=== PATIENT | male | born 1940 | race Caucasian/White ===

== ENCOUNTER 2022-03-11 14:56 | Inpatient (IN) | payer MEDICARE, SELFPAY ==
--- NOTE | ~2022-03-11 | US_ITS ---
EXAMINATION: US RETROPERITONEAL LIMITED (RENAL ONLY) CLINICAL INFORMATION: KAILEY. COMPARISON: Chest radiograph dated 03/11/2022. TECHNIQUE: Multiple 2-D grayscale and duplex Doppler ultrasound images of the kidneys were obtained. FINDINGS: RIGHT KIDNEY: 10.3 x 4.8 x 4.6 cm (SAG x AP x TRV). No hydronephrosis or nephrolithiasis. Color Doppler showed no abnormal vascular flow. LEFT KIDNEY: 11.1 x 4.1 x 4.8 cm (SAG x AP x TRV). An interpolar anechoic cyst measures 2.2 cm. A smaller interpolar anechoic cyst measures 0.9 cm. No hydronephrosis or nephrolithiasis. Color Doppler showed no abnormal vascular flow. OTHER: Mild peritoneal ascites. Small bilateral pleural effusions. US/US renal BI IMPRESSION: 1. Small left renal cysts demonstrate benign features not requiring follow-up. No acute renal abnormality. 2. Mild peritoneal ascites. 3. Small bilateral pleural effusions.
--- NOTE | ~2022-03-11 | XR_ITS ---
EXAMINATION: XR CHEST CLINICAL INFORMATION: Shortness of breath, chest pain. COMPARISON: None TECHNIQUE: Frontal view of the chest was obtained. FINDINGS: The lungs are hypoexpanded with patchy opacity in both lungs. The heart size and pulmonary vascularity is normal. There are median sternotomy sutures from previous intervention. No gross bony abnormality seen. XR/XR chest 1V IMPRESSION: Hypoexpanded lungs without acute process.
[2022-03-11 15:07] VITALS: BP 153/84; BP 163/73; PULSE 100; PULSE 92; RESP 24; TEMP 37.9; O2SAT 96; O2SAT 99; BMI 26.5
--- NOTE | 2022-03-11 15:27 | ECG_ITS ---
Test Reason : SOB Blood Pressure : / mmHG Vent. Rate : 093 BPM Atrial Rate : 000 BPM P-R Int : 000 ms QRS Dur : 084 ms QT Int : 364 ms P-R-T Axes : 000 -30 130 degrees QTc Int : 452 ms Normal sinus rhythm with 1st degree A-V block Left axis deviation Minimal voltage criteria for LVH, may be normal variant ( Carlos product ) ST & T wave abnormality, consider lateral ischemia Abnormal ECG No previous ECGs available Referred By: Elio Willard Electronically Signed By:LISA TERESA
[2022-03-11 15:44] LABS: MANUAL DIFF FLAG NO
[2022-03-11 15:54] LABS: Basophils Absolute Auto 0.1 X10*3/uL (0.0-0.2); Basophils Percent Auto 0.3 % (0-2); Eosinophils Absolute Auto 0.1 X10*3/uL (0.0-0.4); Eosinophils Percent Auto 0.7 % (0-4); Hematocrit 33.5 % (42.0-52.0); Hemoglobin 10.3 g/dl (14.0-18.0); Imm Gran Abs Auto 0.15 X10*3/uL (0.00-0.03); Imm Gran Pct Auto 0.8 % (0.0-0.4); Lymphocytes Absolute Auto 0.4 X10*3/uL (1.2-4.9); Mean Corpuscular HGB Conc 30.7 g/dl (31.0-36.0); Mean Corpuscular Hemoglobin 24.8 pg (27.0-33.0); Mean Corpuscular Volume 80.7 fL (80.0-98.0); Mean Platelet Volume 8.6 fL (9.4-12.4); Monocytes Absolute Auto 1.1 X10*3/uL (0.1-1.2); Monocytes Percent Auto 6.2 % (2-11); Neutrophils Absolute Auto 16.4 x10*3/uL (2.0-8.3); Platelet Count 190 X10*3/uL (160-400); Red Blood Count 4.15 X10*6/uL (4.60-5.80); Red Cell Distribution Width 14.8 % (11.0-16.0); White Blood Count 18.2 X10*3/uL (4.8-10.8)
[2022-03-11] MEDS: Acetaminophen 325 MG TABLET 975 MG PO (15:54)
[2022-03-11] MEDS: Piperacillin Sodium/Tazobactam 4.5 GM in 0.9 % Sodium Chloride 100 ML IV (15:54)
[2022-03-11 15:59] LABS: INTERNATIONAL NORM RATIO 1.4 (0.9-1.1); Lactic Acid 1.2 mmol/L (0.5-2.0); Prothrombin Time 15.9 SEC (10.0-13.1)
[2022-03-11 16:02] LABS: Partial Thromboplastin Time 32.5 SEC (26.0-36.4)
[2022-03-11 16:05] LABS: Alanine Aminotransferase 34 U/L (0-40); Albumin Level 3.8 g/dL (3.5-5.0); Alkaline Phosphatase 92 U/L (39-117); Anion Gap 20 (12-20); Aspartate Amino Transferase 36 U/L (5-37); Bilirubin Total 1.2 mg/dL (0.0-1.0); Blood Urea Nitrogen 57 mg/dL (9-16); Calcium 8.6 mg/dL (8.4-10.2); Carbon Dioxide 18 mmol/L (22-29); Chloride 108 mmol/L (96-108); Creatinine Clr Calc Pharmacy 15.1; Estimated Glomerular Filt Rate 19; Glucose Random 176 mg/dL (60-115); Lipase 9 U/L (8-78); Potassium 5.7 mmol/L (3.3-5.1); Sodium 140 mmol/L (135-145); Total Protein 7.4 g/dL (6.5-8.0)
[2022-03-11 16:07] LABS: Troponin-I High Sensitivity 27.5 ng/L (<3.5-35.0)
--- NOTE | 2022-03-11 16:11 | ED_ITS ---
HPI - SOB/Dyspnea General Chief Complaint: Dyspnea Stated Complaint: DIFFICULTY BREATHING Time Seen by Provider: 03/11/22 15:14 Source: patient Mode of arrival: EMS Limitations: no limitations History of Present Illness HPI Narrative: 81-year-old male who presents emergency department for evaluation of shortness of breath, subjective fever and chills. Patient states that he had a gradual onset of shortness of breath that began around 11:00 hours this morning. He states that shortness of breath got progressively worse. He states that he had subjective fever and chills at home. He denied chest pain. He denied nausea, vomiting or abdominal pain. He did have 2 episodes of loose diarrheal stool. He denied frequency, urgency or dysuria. Patient states the shortness of breath got worse despite being on 2.5 L of oxygen via nasal cannula therefore called an ambulance and was brought to the emergency department. On presentation he is on 3 L of nasal cannula his O2 saturation is 96%, patient had a temperature of a 100.2 degrees F with an elevated respiratory rate of 24. The patient was admitted to [facility] from 01/26/2022 until 01/30/2022 (approximately 6 weeks prior to evaluation). In reviewing the records, the patient presented to [facility] with fever, fatigue, increased shortness of breath times 2-3 days. The patient increased his Lasix from 20 mg 2 times a day to 40 mg 2 times a day with on relief his symptoms. At [facility] he was found to have a fever of 103.2 degrees F.. The patient's blood cultures grew Streptococcus agalactiae, group B. the patient was initially treated with Zosyn and vancomycin and then changed to cefazolin. He was discharged on a 12 day course of amoxicillin. He was also discharged on oxygen. Repeat blood cultures were negative. Related Data Home Medications Medication Instructions Recorded Confirmed albuterol sulfate 90 mcg/actuation 2 puff PO Q6H PRN wheezing 03/11/22 03/11/22 aerosol inhaler amlodipine 2.5 mg tablet 1 tab PO DAILY 03/11/22 03/11/22 aspirin 81 mg tablet,delayed 81 mg PO DAILY 03/11/22 03/11/22 release atorvastatin 80 mg tablet 1 tab PO DAILY 03/11/22 03/11/22 ergocalciferol (vitamin D2) 1,250 1 cap PO MO 03/11/22 03/11/22 mcg (50,000 unit) capsule fluticasone 250 mcg-salmeterol 50 1 puff inhalation BID 03/11/22 03/11/22 mcg/dose blistr powdr for inhalation (Advair Diskus) furosemide 20 mg tablet 2 tab PO DAILY 03/11/22 03/11/22 furosemide 20 mg tablet 20 mg PO DAILY@1700 03/11/22 03/11/22 gabapentin 300 mg capsule 1 cap PO BEDTIME 03/11/22 03/11/22 glipizide 10 mg tablet 1 tab PO BID 03/11/22 03/11/22 insulin NPH isoph U-100 human 100 9 unit subcut BEDTIME 03/11/22 03/11/22 unit/mL subcutaneous suspension (Novolin N NPH U-100 Insulin isophane) insulin NPH isoph U-100 human 100 18 unit subcut DAILY 03/11/22 03/11/22 unit/mL subcutaneous suspension (Novolin N NPH U-100 Insulin isophane) metoprolol succinate 50 mg 1 tab PO DAILY 03/11/22 03/11/22 tablet,extended release 24 hr montelukast 10 mg tablet 1 tab PO DAILY 03/11/22 03/11/22 terazosin 5 mg capsule 1 cap PO BEDTIME 03/11/22 03/11/22 Allergies Allergy/AdvReac Type Severity Reaction Status Date / Time No Known Allergies Allergy Verified 03/11/22 15:12 Review of Systems Review of Systems: Yes all other systems are reviewed and are negative [facility] Past Medical History [facility] Narrative: Past medical history: Coronary disease, heart failure with reduced EF with ejection fraction of 40%, chronic kidney disease stage 3, type 2 diabetes, asthma, hypertension, aortic stenosis status post TAVR with [employer] currently in a clinical trial, first-degree AV block, sinus bradycardia, BPH, recent [facility] admission 10/2021 until 02/2022 for sepsis secondary to group B strep from unclear etiology. Social history: The patient states that his recently . He lives alone. He denies tobacco use but he is a former smoker and quit smoking 40 years prior but did smoke for 20 years. He denies alcohol use. He denies drug use. Medical History (Updated 03/11/22 @ 17:12 by Elio Willard MD) Asthma CHF (congestive heart failure) COPD (chronic obstructive pulmonary disease) Diabetes Hypertension Social History Social History Patient Tobacco Use Status: Former Tobacco user Use of substances other than those prescribed or required for medical reasons: No Advance Directives: Yes Advance Directives Information Provided: No Advance Directives on File: No Physical Exam Vital Signs: Vital Signs: Last Vital Signs Temp 99.0 F 03/11/22 16:54 Pulse 85 03/11/22 16:54 Resp 20 03/11/22 16:54 BP 115/53 L 03/11/22 16:54 Pulse Ox 98 03/11/22 16:54 O2 Del Method 03/11/22 16:54 O2 Flow Rate 2 03/11/22 16:54 Oxygen Flow Rate 3 03/11/22 15:07 BMI result Body Mass Index 26.5 Const: Other: Awake, alert, male patient, pleasant, cooperative, he does appear to be dyspnea, answers questions in full sentences HEENT: Head: Yes normal to inspection, Yes normocephalic and Yes atraumatic Ears: external ears normal General nose exam: Normal external nose present Face and sinus: Yes normal facial exam Mouth: Normal oral and palatal mucosa present Throat: Yes posterior oropharynx normal Eyes: General: appearance normal, both eyes and all related structures Pupils: Equal, round and reactive pupils present Neck: Neck: Yes normal visual inspection, Yes no lymphadenopathy, Yes trachea midline and Yes supple Chest: Chest palpation & inspection: normal inspection of the chest and normal palpation of entire chest wall Resp: Other: Rales at the bases, diffuse rhonchi, no wheezing, breath sounds symmetric bilaterally Effort & Inspection: able to speak in complete sentences Cardio: Rate: regular rate Rhythm: regular rhythm Heart sounds: S1 no rmal heart sound present, S2 normal heart sound present and no murmurs GI: Inspection: Yes normal to inspection Palpation (GI): Soft to palpation, nontender and no guarding Auscultation: normal bowel sounds : General: Yes no CVA tenderness Back/Spine/Pelvis: Back: no CVA tenderness Skin: General skin exam: no rashes or lesions noted Neuro: Cranial nerves: Yes CN's II-XII intact bilaterally and Yes Equal, round and reactive pupils present Cognition (Neuro): normal cognition Motor exam (neuro): 5/5 motor strength present throughout Extrem: General: Yes normal to inspection Psych: Appearance: grossly normal Speech and movement: Normal speech and movement present Affect: normal affect Attitude: cooperative Thought process: Normal thought process present Thought content: Normal thought content present Course Course Course Narrative: 81-year-old male who presents emergency department for evaluation of shortness of breath which began this morning at 11:00 hours and progressively got worse. The patient did have a an admission to [facility] 6 weeks prior for shortness of breath and fever and had blood cultures which grew group B strep, patient was treated with IV antibiotics and then a 12 day course of amoxicillin. The patient did complain of subjective fever and chills. In the emergency department the patient was tachypneic with a respiratory of 24 and a temperature of 100.2 degrees F. patient's O2 saturation was 96% on 3 L via nasal cannula. Lung exam did reveal diffuse rhonchi and rales with no wheezing. I did order laboratory evaluation to include CBC, CMP, troponin, BNP, PT/INR, PTT, lactate, urinalysis, COVID-19, blood cultures x2. One-view chest x-ray was also obtained. Patient was ordered to get Zosyn 4.5 g IV. 1639: Laboratory evaluation: WBC elevated 18,200. Anemia with an H&H of 10 and 33.5. Potassium elevated 5.7. BUN and creatinine elevated 57 and 3.18 (01/30/2022 BUN 48, creatinine 3.0). Glucose elevated 176. BNP elevated 6580. High sensitivity troponin I detectable but not elevated at 27.5. Lactic acid normal 1.2. Radiology evaluation: Chest x-ray-my review revealed cardiomegaly with increased interstitial markings consistent with congestive heart failure, no focal opacity. Radiology interpreted the chest x-ray as hypoexpanded lungs without acute proxy is. I did order Lasix 40 mg IV. Concerned the patient may have a infectious process verses CHF. I will discuss admission with the covering hospitalist. 1710: I did discuss the patient's presentation with the covering hospitalist, Dr. Bell and the patient will be admitted for further management. I will repeat the patient's troponin at 18:30. MDM - SOB/Dyspnea Medical Records Attestation: I reviewed the patient's medical records. Lab Data Attestation: I reviewed the patient's lab results. Result diagrams: 03/11/22 15:36 03/11/22 15:36 Labs: Lab Results 03/11/22 03/11/22 03/11/22 Range/Units 15:36 15:36 15:36 WBC 18.2 H (4.8-10.8) X10*3/uL RBC 4.15 L (4.60-5.80) X10*6/uL Hgb 10.3 L (14.0-18.0) g/dl Hct 33.5 L (42.0-52.0) % MCV 80.7 (80.0-98.0) fL MCH 24.8 L (27.0-33.0) pg MCHC 30.7 L (31.0-36.0) g/dl RDW 14.8 (11.0-16.0) % Plt Count 190 (160-400) X10*3/uL MPV 8.6 L (9.4-12.4) fL Immature Gran % (Auto) 0.8 H (0.0-0.4) % Neut % (Auto) 90.0 H (45-73) % Lymph % (Auto) 2.0 L (20-40) % Mitchell % (Auto) 6.2 (2-11) % Eos % (Auto) 0.7 (0-4) % Baso % (Auto) 0.3 (0-2) % Lymph # (Auto) 0.4 L (1.2-4.9) X10*3/uL Mitchell # (Auto) 1.1 (0.1-1.2) X10*3/uL Eos # (Auto) 0.1 (0.0-0.4) X10*3/uL Baso # (Auto) 0.1 (0.0-0.2) X10*3/uL Abs Immat Gran (auto) 0.15 H (0.00-0.03) X10*3/uL Absolute Neuts (auto) 16.4 H (2.0-8.3) x10*3/uL Absolute Nucleated RBC 0.000 (0.0-0.012) X10*3/uL Nucleated RBC % (auto) 0.0 (0.0-0.2) /100WBC PT 15.9 H (10.0-13.1) SEC INR 1.4 H (0.9-1.1) APTT 32.5 (26.0-36.4) SEC Sodium 140 (135-145) mmol/L Potassium 5.7 H (3.3-5.1) mmol/L Chloride 108 (96-108) mmol/L Carbon Dioxide 18 L (22-29) mmol/L Anion Gap 20 (12-20) BUN 57 H (9-16) mg/dL Creatinine 3.18 H (0.5-1.4) mg/dL Estim Creat Clear Calc 15.1 Estimated GFR 19 Random Glucose 176 H (60-115) mg/dL Lactic Acid (0.5-2.0) mmol/L Calcium 8.6 (8.4-10.2) mg/dL Total Bilirubin 1.2 H (0.0-1.0) mg/dL AST 36 (5-37) U/L ALT 34 (0-40) U/L Alkaline Phosphatase 92 (39-117) U/L Troponin I High Sens (<3.5-35.0) ng/L B-Natriuretic Peptide (<100) pg/mL Total Protein 7.4 (6.5-8.0) g/dL Albumin 3.8 (3.5-5.0) g/dL Lipase 9 (8-78) U/L 03/11/22 03/11/22 03/11/22 Range/Units 15:36 15:36 15:36 WBC (4.8-10.8) X10*3/uL RBC (4.60-5.80) X10*6/uL Hgb (14.0-18.0) g/dl Hct (42.0-52.0) % MCV (80.0-98.0) fL MCH (27.0-33.0) pg MCHC (31.0-36.0) g/dl RDW (11.0-16.0) % Plt Count (160-400) X10*3/uL MPV (9.4-12.4) fL Immature Gran % (Auto) (0.0-0.4) % Neut % (Auto) (45-73) % Lymph % (Auto) (20-40) % Mitchell % (Auto) (2-11) % Eos % (Auto) (0-4) % Baso % (Auto) (0-2) % Lymph # (Auto) (1.2-4.9) X10*3/uL Mitchell # (Auto) (0.1-1.2) X10*3/uL Eos # (Auto) (0.0-0.4) X10*3/uL Baso # (Auto) (0.0-0.2) X10*3/uL Abs Immat Gran (auto) (0.00-0.03) X10*3/uL Absolute Neuts (auto) (2.0-8.3) x10*3/uL Absolute Nucleated RBC (0.0-0.012) X10*3/uL Nucleated RBC % (auto) (0.0-0.2) /100WBC PT (10.0-13.1) SEC INR (0.9-1.1) APTT (26.0-36.4) SEC Sodium (135-145) mmol/L Potassium (3.3-5.1) mmol/L Chloride (96-108) mmol/L Carbon Dioxide (22-29) mmol/L Anion Gap (12-20) BUN (9-16) mg/dL Creatinine (0.5-1.4) mg/dL Estim Creat Clear Calc Estimated GFR Random Glucose (60-115) mg/dL Lactic Acid 1.2 (0.5-2.0) mmol/L Calcium (8.4-10.2) mg/dL Total Bilirubin (0.0-1.0) mg/dL AST (5-37) U/L ALT (0-40) U/L Alkaline Phosphatase (39-117) U/L Troponin I High Sens 27.5 (<3.5-35.0) ng/L B-Natriuretic Peptide 6580 H (<100) pg/mL Total Protein (6.5-8.0) g/dL Albumin (3.5-5.0) g/dL Lipase (8-78) U/L ECG Data Attestation: I personally reviewed and interpreted this ECG as follows: Interpretation: 1607: Sinus rhythm with first-degree AV block with WV interval of 240 mi lliseconds, normal QRS and QTC intervals, no ST segment elevation, no ST segment depression, inverted T-waves in lead 1 and aVL, Q-wave in lead 3, poor R-wave progression V1 through V3, no old EKG for comparison. Discharge Plan Discharge Clinical Impression: Pneumonia, CHF (congestive heart failure) Patient Disposition: Admitted As Inpatient
[2022-03-11 16:29] LABS: B Type Natriuretic Peptide 6580 pg/mL (<100)
[2022-03-11 16:54] VITALS: BP 115/53; PULSE 85; RESP 20; TEMP 37.2; O2SAT 98
[2022-03-11] MEDS: Furosemide 40 MG/4 ML VIAL IVPUSH (16:56)
--- NOTE | 2022-03-11 17:05 | PHA.MEDREC ---
Pharmacy Consult ? Medication Reconciliation Pharmacy has completed the medication reconciliation.
[2022-03-11 17:14] LABS: Appearance Urine Clear; Color Urine Yellow; Glucose Urine UA Negative (Negative); Leukocyte Esterase Urine Negative (Negative); Nitrite Urine Negative (Negative); PH 5.5 (5.0-8.0); Specific Gravity - Urine 1.025 (1.005-1.025); Urine Blood Small (1+) (Negative); Urine Ketones Negative (Negative); Urine Protein 100 (2+) mg/dL (Neg-Trace)
[2022-03-11 17:17] LABS: COVID-19 Test Negative (Negative); IDNOW Serial# 55D5AD1C
[2022-03-11 17:40] LABS: Bacteria Urine None Seen (None Seen); Granular Casts Urine Present; Hyaline Casts Urine 0-2 /LPF (0-2); Squamous Epithelial Cell Urine 0-2 /HPF (0-2); WBC Urine 0-5 /HPF (0-5)
--- NOTE | 2022-03-11 18:43 | PM.IMHP ---
History of Present Illness Date of Service: 03/11/22 Chief Complaint: shortness of breath 81-year-old male who presents emergency department for evaluation of shortness of breath, subjective fever and chills.? Patient states that he had a gradual onset of shortness of breath that began around 11:00 hours this morning.? He states that shortness of breath got progressively worse.? He states that he had subjective fever and chills at home.? He denied chest pain.? He denied nausea, vomiting or abdominal pain.? He did have 2 episodes of loose diarrheal stool.? He denied frequency, urgency or dysuria.? Patient states the shortness of breath got worse despite being on 2.5 L of oxygen via nasal cannula therefore called an ambulance and was brought to the emergency department.? On presentation he is on 3 L of nasal cannula his O2 saturation is 96%, patient had a temperature of a 100.2 degrees F with an elevated respiratory rate of 24. The patient was admitted to [facility] from 01/26/2022 until 01/30/2022 (approximately 6 weeks prior to evaluation).? In reviewing the records, the patient presented to [facility] with fever, fatigue, increased shortness of breath times 2-3 days.? The patient increased his Lasix from 20 mg 2 times a day to 40 mg 2 times a day with on relief his symptoms.? At [facility] he was found to have a fever of 103.2 degrees F..? The patient's blood cultures grew Streptococcus agalactiae, group B. the patient was initially treated with Zosyn and vancomycin and then changed to cefazolin.? He was discharged on a 12 day course of amoxicillin.? He was also discharged on oxygen.? Repeat blood cultures were negative. ER C[facility]se Patient given Tylenol for fever. Chest x-ray consistent with failure (BNP 6580). sats acceptable on 2 liters/minutes Review of Systems Review of Systems: Denies chest pain Admit shortness of breath Denies nausea vomiting diarrhea Denies abdominal pain Admits to subjective fevers at home [facility] Medical History (Updated 03/11/22 @ 18:54 by Lang Bell DO) Asthma CHF (congestive heart failure) COPD (chronic obstructive pulmonary disease) Diabetes Hypertension Social History Patient Tobacco Use Status: Former Tobacco user Use of substances other than those prescribed or required for medical reasons: No Advance Directives: Yes Advance Directives Information Provided: No Advance Directives on File: No Meds Allergies Allergy/AdvReac Type Severity Reaction Status Date / Time No Known Allergies Allergy Verified 03/11/22 15:12 Active Medications: Current Medications Acetaminophen (Acetaminophen 325 Mg Tablet) 650 mg PO Q6H PRN PRN Reason: Pain, Mild (Pain Scale 1-3) Albuterol Sulfate (Albuterol Sulfate 90 Mcg 8 Gm Inhaler) 2 puff INHALE Q6H PRN PRN Reason: wheezing Amlodipine Besylate (Amlodipine Besylate 2.5 Mg Tablet) 2.5 mg PO DAILY [facility]; Protocol Aspirin (Aspirin Enteric Coated 81 Mg Tablet.Dr) 81 mg PO DAILY [facility] Atorvastatin Calcium (Atorvastatin Calcium 80 Mg Tablet) 80 mg PO DAILY [facility] Ergocalciferol (Ergocalciferol (Vitamin D2) 1,250 Mcg Capsule) 1,250 mcg PO MO [facility] Furosemide (Furosemide 40 Mg/4 Ml Vial) 40 mg IVPUSH BID@0630,1630 [facility]; Protocol Gabapentin (Gabapentin 300 Mg Capsule) 300 mg PO BEDTIME [facility] Heparin Sodium (Porcine) (Heparin Sodium,Porcine 5,000 Unit/Ml Vial) 5,000 unit SUBCUT Q12H [facility] Insulin Glargine (Insulin Glargine,Hum.Rec.Anlog 100 Unit/Ml 10 Ml Vial) 21 unit SUBCUT BEDTIME [facility] Metoprolol Succinate (Metoprolol Succinate Er 50 Mg Tab.Er.24h) 50 mg PO DAILY [facility]; Protocol Montelukast Sodium (Montelukast Sodium 10 Mg Tablet) 10 mg PO DAILY [facility] Non-Formulary Medication (Insulin Nph Isoph U-100 Human [Novolin N Nph U-100 Insulin]) 9 unit SUBCUT BEDTIME [facility] Non-Formulary Medication (Terazosin) 1 cap PO BEDTIME [facility] Non-Formulary Medication (Fluticasone Propion-Salmeterol [Advair Diskus]) 1 puff INHALE BID [facility] Non-Formulary Medication (Insulin Nph Isoph U-100 Human [Novolin N Nph U-100 Insulin]) 18 unit SUBCUT DAILY [facility] Ondansetron HCl (Ondansetron Hcl 4 Mg/2 Ml Vial) 4 mg IVPUSH Q8H PRN PRN Reason: Nausea and Vomiting Pharmacy Consult (Consult Rx Perform Med Rec) 1 each MISCELLANE ONCE PRN PRN Reason: Consult order Sodium Chloride (0.9 % Sodium Chloride Flush 3 Ml Syringe) 3 ml IVFLUSH [facility] Medications Medication Instructions Recorded Confirmed Last Taken Type albuterol sulfate 90 mcg/actuation 2 puff PO Q6H PRN wheezing 03/11/22 03/11/22 Unknown History aerosol inhaler amlodipine 2.5 mg tablet 1 tab PO DAILY 03/11/22 03/11/22 03/11/22 History aspirin 81 mg tablet,delayed 81 mg PO DAILY 03/11/22 03/11/22 03/11/22 History release atorvastatin 80 mg tablet 1 tab PO DAILY 03/11/22 03/11/22 03/11/22 History ergocalciferol (vitamin D2) 1,250 1 cap PO MO 03/11/22 03/11/22 03/09/22 History mcg (50,000 unit) capsule fluticasone 250 mcg-salmeterol 50 1 puff inhalation BID 03/11/22 03/11/22 03/11/22 History mcg/dose blistr powdr for inhalation (Advair Diskus) furosemide 20 mg tablet 2 tab PO DAILY 03/11/22 03/11/22 03/11/22 History furosemide 20 mg tablet 20 mg PO DAILY@1700 03/11/22 03/11/22 03/10/22 History gabapentin 300 mg capsule 1 cap PO BEDTIME 03/11/22 03/11/22 03/10/22 History glipizide 10 mg tablet 1 tab PO BID 03/11/22 03/11/22 03/11/22 History insulin NPH isoph U-100 human 100 9 unit subcut BEDTIME 03/11/22 03/11/22 03/10/22 History unit/mL subcutaneous suspension (Novolin N NPH U-100 Insulin isophane) insulin NPH isoph U-100 human 100 18 unit subcut DAILY 03/11/22 03/11/22 03/11/22 History unit/mL subcutaneous suspension (Novolin N NPH U-100 Insulin isophane) metoprolol succinate 50 mg 1 tab PO DAILY 03/11/22 03/11/22 03/11/22 History tablet,extended release 24 hr montelukast 10 mg tablet 1 tab PO DAILY 03/11/22 03/11/22 03/11/22 History terazosin 5 mg capsule 1 cap PO BEDTIME 03/11/22 03/11/22 03/10/22 History Physical Exam Vital Signs and Narrative: Vital Signs: Last Vital Signs Temp 99.0 F 03/11/22 16:54 Pulse 85 03/11/22 16:54 Resp 20 03/11/22 16:54 BP 115/53 L 03/11/22 16:54 Pulse Ox 98 03/11/22 16:54 O2 Del Method 03/11/22 16:54 O2 Flow Rate 2 03/11/22 16:54 Oxygen Flow Rate 3 03/11/22 15:07 BMI result Body Mass Index 26.5 Const: Other: awake alert oriented x3 no acute distress. Able to speak in full sentences Neck: Other: positive JVD Resp: Other: scant bilateral basilar crackles Cardio: Other: no S4; positive S1-S2; no S3 2/6 systolic murmur best heard at apex GI: Other: soft nontender nondistended normo Neuro: Other: cranial nerves 2-12 grossly intact as tested. Motor is 5/5 all extremities. Sensation intact. Cognition appropriate. Gait not visualized Extrem: Other: trace edema bilaterally Results Labs CBC and Chem 7: 03/11/22 15:36 03/11/22 15:36 Labs: Laboratory Results - last 24 hr 03/11/22 03/11/22 03/11/22 15:36 15:36 15:36 MCV 80.7 MCH 24.8 L MCHC 30.7 L RDW 14.8 Plt Count 190 MPV 8.6 L Immature Gran % (Auto) 0.8 H Neut % (Auto) 90.0 H Lymph % (Auto) 2.0 L [place] % (Auto) 6.2 Eos % (Auto) 0.7 Baso % (Auto) 0.3 Lymph # (Auto) 0.4 L [place] # (Auto) 1.1 Eos # (Auto) 0.1 Baso # (Auto) 0.1 Abs Immat Gran (auto) 0.15 H Absolute Neuts (auto) 16.4 H Absolute Nucleated RBC 0.000 Nucleated RBC % (auto) 0.0 PT 15.9 H INR 1.4 H APTT 32.5 Anion Gap 20 Estim Creat Clear Calc 15.1 Estimated GFR 19 Random Glucose 176 H Lactic Acid Calcium 8.6 Total Bilirubin 1.2 H AST 36 ALT 34 Alkaline Phosphatase 92 B-Natriuretic Peptide Total Protein 7.4 Albumin 3.8 Lipase 9 Urine Color Urine Appearance Urine pH Ur Specific [place] Urine Protein Urine Glucose (UA) Urine Ketones Urine Blood Urine Nitrite Ur Leukocyte Esterase Urine RBC Urine WBC Ur Squamous Epith Cells Urine Bacteria Hyaline Casts Granular Casts COVID-19 (MYRIAM) COVID-19 Clin Com 03/11/22 03/11/22 03/11/22 15:36 15:36 16:29 MCV MCH MCHC RDW Plt Count MPV Immature Gran % (Auto) Neut % (Auto) Lymph % (Auto) [place] % (Auto) Eos % (Auto) Baso % (Auto) Lymph # (Auto) [place] # (Auto) Eos # (Auto) Baso # (Auto) Abs Immat Gran (auto) Absolute Neuts (auto) Absolute Nucleated RBC Nucleated RBC % (auto) PT INR APTT Anion Gap Estim Creat Clear Calc Estimated GFR Random Glucose Lactic Acid 1.2 Calcium Total Bilirubin AST ALT Alkaline Phosphatase B-Natriuretic Peptide 6580 H Total Protein Albumin Lipase Urine Color Urine Appearance Urine pH Ur Specific [place] Urine Protein Urine Glucose (UA) Urine Ketones Urine Blood Urine Nitrite Ur Leukocyte Esterase Urine RBC Urine WBC Ur Squamous Epith Cells Urine Bacteria Hyaline Casts Granular Casts COVID-19 (MYRIAM) Negative COVID-19 Clin Com See Note 03/11/22 16:55 MCV MCH MCHC RDW Plt Count MPV Immature Gran % (Auto) Neut % (Auto) Lymph % (Auto) [place] % (Auto) Eos % (Auto) Baso % (Auto) Lymph # (Auto) [place] # (Auto) Eos # (Auto) Baso # (Auto) Abs Immat Gran (auto) Absolute Neuts (auto) Absolute Nucleated RBC Nucleated RBC % (auto) PT INR APTT Anion Gap Estim Creat Clear Calc Estimated GFR Random Glucose Lactic Acid Calcium Total Bilirubin AST ALT Alkaline Phosphatase B-Natriuretic Peptide Total Protein Albumin Lipase Urine Color Yellow Urine Appearance Clear Urine pH 5.5 Ur Specific [place] 1.025 Urine Protein 100 (2+) H Urine Glucose (UA) Negative Urine Ketones Negative Urine Blood Small (1+) H Urine Nitrite Negative Ur Leukocyte Esterase Negative Urine RBC 3-5 H Urine WBC 0-5 Ur Squamous Epith Cells 0-2 Urine Bacteria None Seen Hyaline Casts 0-2 Granular Casts Present COVID-19 (MYRIAM) COVID-19 Clin Com Imaging Radiologist's Impressions: Impressions Chest X-Ray 03/11/22 15:46 IMPRESSION: Hypoexpanded lungs without acute process. Assessment and Plan (1) Fever: Status: Acute (2) CHF (congestive heart failure): Status: Acute (3) Type 2 diabetes mellitus: Status: Acute (4) Hypertension: Status: Acute Plan 81-year-old male with history of congestive heart failure/hypertension/diabetes status post strep bacteremia presents today with shortness of breath and fever. White count emergency room 18,000. 1.Fever (history of group B strep treated with Ancef ) - cultures taken in the ER - given initial doses Zosyn will continue same pending culture - ID consult in a.m. 2. Acute on chronic systolic heart failure - hold oral diuresis in favor of IV - cardiology consult in a.m. ( records from [facility] in chart ) - trend BNP/ troponin 3. Hypertension - acceptable control on current therapies - adjust as indicated 4. Diabetes type 2 - continue outpatient therapies....hold glyburide -cover with Lispro sliding scale Full code Heparin patient will require 2 midnights going forward for treatment and workup of fever and acute on chronic systolic heart failure. This cannot be achieved in a less acute setting Quality Stroke Does the patient have a stroke diagnosis?: No VTE Prior VTE?: No VTE Risk Level:: Medical - moderate - high VTE Device Contraindication: Treatment Not Indicated VTE Drug Contraindication: N/A - Med Ordered
[2022-03-11 18:45] LABS: Glucose, Whole Blood 152 mg/dL (60-115)
[2022-03-11 19:03] LABS: Troponin-I High Sensitivity 38.7 ng/L (<3.5-35.0)
[2022-03-11 20:34] VITALS: BP 112/53; PULSE 58; RESP 18; TEMP 36.8; O2SAT 97
[2022-03-11] MEDS: Doxazosin Mesylate 2 MG TABLET 4 MG PO (20:38)
[2022-03-11] MEDS: Insulin Glargine,Hum.rec.anlog 100 UNIT/ML 10 ML VIAL 21 UNIT SUBCUT (20:38)
[2022-03-11] MEDS: Gabapentin 300 MG CAPSULE PO (20:39)
[2022-03-11] MEDS: Heparin Sodium,Porcine 5,000 UNIT/ML VIAL 5000 UNIT SUBCUT (20:39)
[2022-03-11 23:23] VITALS: BP 119/60; PULSE 62; RESP 20; O2SAT 96
[2022-03-11] MEDS: Piperacillin Sodium/Tazobactam 2.25 GM in 0.9 % Sodium Chloride 50 ML IV (23:26)
--- NOTE | 2022-03-12 04:09 | PC.NURSE ---
Dr Chakraborty aware of + blood cultures.
[2022-03-12 04:31] LABS: MANUAL DIFF FLAG NO
[2022-03-12 04:32] LABS: Basophils Absolute Auto 0.1 X10*3/uL (0.0-0.2); Basophils Percent Auto 0.3 % (0-2); Eosinophils Absolute Auto 0.2 X10*3/uL (0.0-0.4); Eosinophils Percent Auto 1.4 % (0-4); Hematocrit 30.4 % (42.0-52.0); Hemoglobin 9.2 g/dl (14.0-18.0); Imm Gran Abs Auto 0.13 X10*3/uL (0.00-0.03); Imm Gran Pct Auto 0.9 % (0.0-0.4); Lymphocytes Absolute Auto 1.3 X10*3/uL (1.2-4.9); Lymphocytes Percent Auto 8.7 % (20-40); Mean Corpuscular HGB Conc 30.3 g/dl (31.0-36.0); Mean Corpuscular Hemoglobin 24.7 pg (27.0-33.0); Mean Corpuscular Volume 81.5 fL (80.0-98.0); Mean Platelet Volume 8.4 fL (9.4-12.4); Monocytes Absolute Auto 1.3 X10*3/uL (0.1-1.2); Neutrophils Absolute Auto 11.6 x10*3/uL (2.0-8.3); Neutrophils Percent Auto 79.7 % (45-73); Platelet Count 150 X10*3/uL (160-400); Red Blood Count 3.73 X10*6/uL (4.60-5.80); Red Cell Distribution Width 14.9 % (11.0-16.0); White Blood Count 14.6 X10*3/uL (4.8-10.8)
[2022-03-12 04:58] LABS: Alanine Aminotransferase 30 U/L (0-40); Albumin Level 3.4 g/dL (3.5-5.0); Alkaline Phosphatase 68 U/L (39-117); Anion Gap 16 (12-20); Aspartate Amino Transferase 19 U/L (5-37); Bilirubin Total 0.8 mg/dL (0.0-1.0); Blood Urea Nitrogen 61 mg/dL (9-16); Calcium 8.3 mg/dL (8.4-10.2); Carbon Dioxide 21 mmol/L (22-29); Chloride 109 mmol/L (96-108); Creatinine Clr Calc Pharmacy 12.6; Estimated Glomerular Filt Rate 15; Glucose Fasting 131 mg/dL (60-99); Potassium 5.2 mmol/L (3.3-5.1); Sodium 141 mmol/L (135-145); Total Protein 6.4 g/dL (6.5-8.0)
[2022-03-12 05:15] LABS: B Type Natriuretic Peptide 8143 pg/mL (<100)
[2022-03-12] MEDS: Piperacillin Sodium/Tazobactam 2.25 GM in 0.9 % Sodium Chloride 50 ML IV ×2 (06:53→16:08)
[2022-03-12] MEDS: Heparin Sodium,Porcine 5,000 UNIT/ML VIAL 5000 UNIT SUBCUT ×2 (06:53→20:19)
[2022-03-12] MEDS: Furosemide 40 MG/4 ML VIAL IVPUSH ×2 (06:54→16:07)
[2022-03-12] MEDS: 0.9 % Sodium Chloride Flush 3 ML SYRINGE IVFLUSH ×2 (07:50→16:16)
[2022-03-12 07:56] VITALS: BP 108/69; PULSE 63; RESP 19; O2SAT 100
--- NOTE | 2022-03-12 07:57 | P.CDIC_ITS ---
CDI Concurrent Query Documentation Clarification: PHYSICIAN'S DOCUMENTATION REQUEST Date of Query: 03/12/22 0757 Patient Name: Adolfo Blakely Admit Date: 03/11/22 Dear Doctor, A review of the medical record indicates additional documentation may be needed. Please review below and update the documentation accordingly. Clinical Indicators: The following diagnoses or signs and symptoms were noted in the patient record: Lab Tests: Risk Factors/Clinical Indicators/Treatments BUN 57/Creat 3.18 on 03/11/22 BUN 61/Creat 3.82 on 03/12/22 Based on the above, could you clarify in the Progress Notes the appropriate diagnosis, if significant, that supports the above abnormalities and additional evaluation, monitoring, and/or treatment rendered: * Labs indicate a diagnosis of (please specify) * Other (please specify) * Unable to determine Use of terms such as suspected, likely, concern for, or probable (associated with a specific diagnosis that is being evaluated, monitored, or treated as if it exists) are acceptable and can be coded in the inpatient setting, when documented at the time of discharge. Thank you, Rula Contreras RN Extension: [phone] Please use your independent medical judgment in providing your response. THIS QUERY IS PART OF THE PERMANENT MEDICAL RECORD Provider Response: Other Other Diagnosis: CKD
--- NOTE | 2022-03-12 08:03 | P.CDIC_ITS ---
CDI Concurrent Query Documentation Clarification: PHYSICIAN'S DOCUMENTATION REQUEST Date of Query: 03/12/22 0803 Patient Name: Adolfo Blakely Admit Date: 03/11/22 Dear Doctor, A review of the medical record indicates additional documentation may be needed. Please review below and update the documentation accordingly. Clinical Indicators: The following diagnoses or signs and symptoms were noted in the patient record: Lab Tests: Risk Factors/Clinical Indicators/Treatments Potassium 5.7 on 03/11/22, 5.2 on 03/12/22 Based on the above, could you clarify in the Progress Notes the appropriate diagnosis, if significant, that supports the above abnormalities and additional evaluation, monitoring, and/or treatment rendered: * Labs indicate a diagnosis of (please specify) * Other (please specify) * Unable to determine Use of terms such as suspected, likely, concern for, or probable (associated with a specific diagnosis that is being evaluated, monitored, or treated as if it exists) are acceptable and can be coded in the inpatient setting, when documented at the time of discharge. Thank you, Rula Contreras RN Extension: [phone] Please use your independent medical judgment in providing your response. THIS QUERY IS PART OF THE PERMANENT MEDICAL RECORD Provider Response: Other Other Diagnosis: labs indicated diagnosis of hyperkalemia
[2022-03-12] MEDS: Aspirin Enteric Coated 81 MG TABLET.DR PO (08:30)
[2022-03-12] MEDS: amLODIPine Besylate 2.5 MG TABLET PO (08:30)
[2022-03-12] MEDS: Atorvastatin Calcium 80 MG TABLET PO (08:30)
[2022-03-12] MEDS: Montelukast Sodium 10 MG TABLET PO (08:30)
[2022-03-12] MEDS: Metoprolol Succinate ER 50 MG TAB.ER.24H PO (08:30)
--- NOTE | 2022-03-12 08:50 | PC.NURSE ---
PT ATE BKFST. A&OX4. AWAITING BED ON FLOOR.
[2022-03-12] MEDS: Fluticasone/Vilanterol 100/25 BLST.W.DEV 1 PUFF INHALE (08:59)
[2022-03-12 09:00] VITALS: PULSE 65; RESP 19; O2SAT 100
--- NOTE | 2022-03-12 10:30 | PM.CNCAR ---
History of Present Illness History of Present Illness Date of Service: 03/12/22 Requesting physician: Lang Bell Chief complaint: Shortness of Breath, CHF Narrative: 81-year-old gentleman who is presenting for fever, chills and shortness of breath. He was recently at [facility] where he was found to be bacteremic with streptococcal agalactiae. He was treated with antibiotics and reportedly his cultures were cleared. Started feeling chills again and was also feeling shortness of breath and decided to come to the hospital. Here he was noticed to be in heart failure. His blood cultures were sent and they are growing g positive cocci. He has background history of bioprosthetic aortic valve replacement as well as single vessel bypass with PRINCE to LAD in 2017. Recently he was seeing his primary deputy sheriff Dr. 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 Overall clinically he appears volume overloaded and short of breath due to congestive heart failure. [facility] Past Medical History Medical History (Updated 03/11/22 @ 18:54 by Lang Bell DO) Asthma CHF (congestive heart failure) COPD (chronic obstructive pulmonary disease) Diabetes Hypertension Social History Social History Patient Tobacco Use Status: Former Tobacco user Use of substances other than those prescribed or required for medical reasons: No Advance Directives: Yes Advance Directives Information Provided: No Advance Directives on File: No service: No Current occupational status: retired Meds Allergies Allergy/AdvReac Type Severity Reaction Status Date / Time No Known Allergies Allergy Verified 03/11/22 15:12 Active Medications: Current Medications Acetaminophen (Acetaminophen 325 Mg Tablet) 650 mg PO Q6H PRN PRN Reason: Pain, Mild (Pain Scale 1-3) Albuterol Sulfate (Albuterol Sulfate 90 Mcg 8 Gm Inhaler) 2 puff INHALE Q6H PRN PRN Reason: wheezing Amlodipine Besylate (Amlodipine Besylate 2.5 Mg Tablet) 2.5 mg PO DAILY [facility], [facility]; Protocol Last Admin: 03/12/22 08:30 Dose: 2.5 mg Aspirin (Aspirin Enteric Coated 81 Mg Tablet.) 81 mg PO DAILY [facility] Last Admin: 03/12/22 08:30 Dose: 81 mg Atorvastatin Calcium (Atorvastatin Calcium 80 Mg Tablet) 80 mg PO DAILY [facility] Last Admin: 03/12/22 08:30 Dose: 80 mg Doxazosin Mesylate (Doxazosin Mesylate 2 Mg Tablet) 4 mg PO BEDTIME [facility] Last Admin: 03/11/22 20:38 Dose: 4 mg Ergocalciferol (Ergocalciferol (Vitamin D2) 1,250 Mcg Capsule) 1,250 mcg PO MO [facility] Fluticasone/Vilanterol (Fluticasone/Vilanterol 100/25 Blst.W.Dev) 1 puff INHALE RDAILY [facility] Last Admin: 03/12/22 08:59 Dose: 1 puff Furosemide (Furosemide 40 Mg/4 Ml Vial) 40 mg IVPUSH BID@0630,1630 [facility]; Protocol Last Admin: 03/12/22 06:54 Dose: 40 mg Gabapentin (Gabapentin 300 Mg Capsule) 300 mg PO BEDTIME [facility] Last Admin: 03/11/22 20:39 Dose: 300 mg Heparin Sodium (Porcine) (Heparin Sodium,Porcine 5,000 Unit/Ml Vial) 5,000 unit SUBCUT Q12H [facility] Last Admin: 03/12/22 06:53 Dose: 5,000 unit Piperacillin Sod/Tazobactam (Sod 2.25 gm/ Sodium Chloride) 50 mls @ 100 mls/hr IV Q8H [facility] Last Infusion: 03/12/22 07:49 Dose: Infused Insulin Glargine (Insulin Glargine,Hum.Rec.Anlog 100 Unit/Ml 10 Ml Vial) 21 unit SUBCUT BEDTIME [facility] Last Admin: 03/11/22 20:38 Dose: 21 unit Metoprolol Succinate (Metoprolol Succinate Er 50 Mg Tab.Er.24h) 50 mg PO DAILY [facility]; Protocol Last Admin: 03/12/22 08:30 Dose: 50 mg Montelukast Sodium (Montelukast Sodium 10 Mg Tablet) 10 mg PO DAILY [facility] Last Admin: 03/12/22 08:30 Dose: 10 mg Ondansetron HCl (Ondansetron Hcl 4 Mg/2 Ml Vial) 4 mg IVPUSH Q8H PRN PRN Reason: Nausea and Vomiting Pharmacy Consult (Consult Rx Perform Med Rec) 1 each MISCELLANE ONCE PRN PRN Reason: Consult order Sodium Chloride (0.9 % Sodium Chloride Flush 3 Ml Syringe) 3 ml IVFLUSH QSHIFT [facility] Last Admin: 03/12/22 07:50 Dose: 3 ml Home Medications Medication Instructions Recorded Confirmed Last Taken Type albuterol sulfate 90 mcg/actuation 2 puff PO Q6H PRN wheezing 03/11/22 03/11/22 Unknown History aerosol inhaler amlodipine 2.5 mg tablet 1 tab PO DAILY 03/11/22 03/11/22 03/11/22 History aspirin 81 mg tablet,delayed 81 mg PO DAILY 03/11/22 03/11/22 03/11/22 History release atorvastatin 80 mg tablet 1 tab PO DAILY 03/11/22 03/11/22 03/11/22 History ergocalciferol (vitamin D2) 1,250 1 cap PO MO 03/11/22 03/11/22 03/09/22 History mcg (50,000 unit) capsule fluticasone 250 mcg-salmeterol 50 1 puff inhalation BID 03/11/22 03/11/22 03/11/22 History mcg/dose blistr powdr for inhalation (Advair Diskus) furosemide 20 mg tablet 2 tab PO DAILY 03/11/22 03/11/22 03/11/22 History furosemide 20 mg tablet 20 mg PO DAILY@1700 03/11/22 03/11/22 03/10/22 History gabapentin 300 mg capsule 1 cap PO BEDTIME 03/11/22 03/11/22 03/10/22 History glipizide 10 mg tablet 1 tab PO BID 03/11/22 03/11/22 03/11/22 History insulin NPH isoph U-100 human 100 9 unit subcut BEDTIME 03/11/22 03/11/22 03/10/22 History unit/mL subcutaneous suspension (Novolin N NPH U-100 Insulin isophane) insulin NPH isoph U-100 human 100 18 unit subcut DAILY 03/11/22 03/11/22 03/11/22 History unit/mL subcutaneous suspension (Novolin N NPH U-100 Insulin isophane) metoprolol succinate 50 mg 1 tab PO DAILY 03/11/22 03/11/22 03/11/22 History tablet,extended release 24 hr montelukast 10 mg tablet 1 tab PO DAILY 03/11/22 03/11/22 03/11/22 History terazosin 5 mg capsule 1 cap PO BEDTIME 03/11/22 03/11/22 03/10/22 History Physical Exam Vital Signs: Vital Signs: Last Vital Signs Temp 98.2 F 03/11/22 20:34 Pulse 65 03/12/22 09:00 Resp 19 03/12/22 09:00 BP 108/69 03/12/22 07:56 Pulse Ox 100 03/12/22 07:56 O2 Del Method 03/12/22 07:56 O2 Flow Rate 3 03/12/22 07:56 Oxygen Flow Rate 3 03/11/22 15:07 BMI result Body Mass Index 26.5 GENERAL APPEARANCE: in no acute distress, pleasant. NECK: no carotid bruit, positive jugular venous distention. SKIN: no suspicious lesions, warm and dry. HEART: Systolic murmur aortic area, regular rate and rhythm. LUNGS: clear to auscultation bilaterally. ABDOMEN: soft, nontender. EXTREMITIES: no edema. PERIPHERAL PULSES: equal. NEUROLOGIC: No gross deficits, AAO X 3 Objective Labs and Meds Result diagrams: 03/12/22 04:26 03/12/22 04:26 Lab results: Laboratory Results - last 24 hr 03/11/22 03/11/22 03/11/22 15:36 15:36 15:36 WBC 18.2 H RBC 4.15 L Hgb 10.3 L Hct 33.5 L MCV 80.7 MCH 24.8 L MCHC 30.7 L RDW 14.8 Plt Count 190 MPV 8.6 L Immature Gran % (Auto) 0.8 H Neut % (Auto) 90.0 H Lymph % (Auto) 2.0 L [place] % (Auto) 6.2 Eos % (Auto) 0.7 Baso % (Auto) 0.3 Lymph # (Auto) 0.4 L [place] # (Auto) 1.1 Eos # (Auto) 0.1 Baso # (Auto) 0.1 Abs Immat Gran (auto) 0.15 H Absolute Neuts (auto) 16.4 H Absolute Nucleated RBC 0.000 Nucleated RBC % (auto) 0.0 PT 15.9 H INR 1.4 H APTT 32.5 Sodium 140 Potassium 5.7 H Chloride 108 Carbon Dioxide 18 L Anion Gap 20 BUN 57 H Creatinine 3.18 H Estim Creat Clear Calc 15.1 Estimated GFR 19 POC Glucose Random Glucose 176 H Fasting Glucose Lactic Acid Calcium 8.6 Total Bilirubin 1.2 H AST 36 ALT 34 Alkaline Phosphatase 92 Troponin I High Sens B-Natriuretic Peptide Total Protein 7.4 Albumin 3.8 Lipase 9 Urine Color Urine Appearance Urine pH Ur Specific [place] Urine Protein Urine Glucose (UA) Urine Ketones Urine Blood Urine Nitrite Ur Leukocyte Esterase Urine RBC Urine WBC Ur Squamous Epith Cells Urine Bacteria Hyaline Casts Granular Casts COVID-19 (MYRIAM) COVID-19 Clin Com 03/11/22 03/11/22 03/11/22 15:36 15:36 15:36 WBC RBC Hgb Hct MCV MCH MCHC RDW Plt Count MPV Immature Gran % (Auto) Neut % (Auto) Lymph % (Auto) [place] % (Auto) Eos % (Auto) Baso % (Auto) Lymph # (Auto) [place] # (Auto) Eos # (Auto) Baso # (Auto) Abs Immat Gran (auto) Absolute Neuts (auto) Absolute Nucleated RBC Nucleated RBC % (auto) PT INR APTT Sodium Potassium Chloride Carbon Dioxide Anion Gap BUN Creatinine Estim Creat Clear Calc Estimated GFR POC Glucose Random Glucose Fasting Glucose Lactic Acid 1.2 Calcium Total Bilirubin AST ALT Alkaline Phosphatase Troponin I High Sens 27.5 B-Natriuretic Peptide 6580 H Total Protein Albumin Lipase Urine Color Urine Appearance Urine pH Ur Specific [place] Urine Protein Urine Glucose (UA) Urine Ketones Urine Blood Urine Nitrite Ur Leukocyte Esterase Urine RBC Urine WBC Ur Squamous Epith Cells Urine Bacteria Hyaline Casts Granular Casts COVID-19 (MYRIAM) COVID-19 Clin Com 03/11/22 03/11/22 03/11/22 16:29 16:55 18:33 WBC RBC Hgb Hct MCV MCH MCHC RDW Plt Count MPV Immature Gran % (Auto) Neut % (Auto) Lymph % (Auto) [place] % (Auto) Eos % (Auto) Baso % (Auto) Lymph # (Auto) [place] # (Auto) Eos # (Auto) Baso # (Auto) Abs Immat Gran (auto) Absolute Neuts (auto) Absolute Nucleated RBC Nucleated RBC % (auto) PT INR APTT Sodium Potassium Chloride Carbon Dioxide Anion Gap BUN Creatinine Estim Creat Clear Calc Estimated GFR POC Glucose Random Glucose Fasting Glucose Lactic Acid Calcium Total Bilirubin AST ALT Alkaline Phosphatase Troponin I High Sens 38.7 H B-Natriuretic Peptide Total Protein Albumin Lipase Urine Color Yellow Urine Appearance Clear Urine pH 5.5 Ur Specific [place] 1.025 Urine Protein 100 (2+) H Urine Glucose (UA) Negative Urine Ketones Negative Urine Blood Small (1+) H Urine Nitrite Negative Ur Leukocyte Esterase Negative Urine RBC 3-5 H Urine WBC 0-5 Ur Squamous Epith Cells 0-2 Urine Bacteria None Seen Hyaline Casts 0-2 Granular Casts Present COVID-19 (MYRIAM) Negative COVID-19 Clin Com See Note 03/11/22 03/12/22 03/12/22 18:41 04:26 04:26 WBC 14.6 H RBC 3.73 L Hgb 9.2 L Hct 30.4 L MCV 81.5 MCH 24.7 L MCHC 30.3 L RDW 14.9 Plt Count 150 L MPV 8.4 L Immature Gran % (Auto) 0.9 H Neut % (Auto) 79.7 H Lymph % (Auto) 8.7 L [place] % (Auto) 9.0 Eos % (Auto) 1.4 Baso % (Auto) 0.3 Lymph # (Auto) 1.3 [place] # (Auto) 1.3 H Eos # (Auto) 0.2 Baso # (Auto) 0.1 Abs Immat Gran (auto) 0.13 H Absolute Neuts (auto) 11.6 H Absolute Nucleated RBC 0.000 Nucleated RBC % (auto) 0.0 PT INR APTT Sodium 141 Potassium 5.2 H Chloride 109 H Carbon Dioxide 21 L Anion Gap 16 BUN 61 H Creatinine 3.82 H Estim Creat Clear Calc 12.6 Estimated GFR 15 POC Glucose 152 H Random Glucose Fasting Glucose 131 H Lactic Acid Calcium 8.3 L Total Bilirubin 0.8 AST 19 D ALT 30 Alkaline Phosphatase 68 D Troponin I High Sens B-Natriuretic Peptide Total Protein 6.4 L Albumin 3.4 L Lipase Urine Color Urine Appearance Urine pH Ur Specific [place] Urine Protein Urine Glucose (UA) Urine Ketones Urine Blood Urine Nitrite Ur Leukocyte Esterase Urine RBC Urine WBC Ur Squamous Epith Cells Urine Bacteria Hyaline Casts Granular Casts COVID-19 (MYRIAM) COVID-19 Clin Com 03/12/22 04:26 WBC RBC Hgb Hct MCV MCH MCHC RDW Plt Count MPV Immature Gran % (Auto) Neut % (Auto) Lymph % (Auto) [place] % (Auto) Eos % (Auto) Baso % (Auto) Lymph # (Auto) [place] # (Auto) Eos # (Auto) Baso # (Auto) Abs Immat Gran (auto) Absolute Neuts (auto) Absolute Nucleated RBC Nucleated RBC % (auto) PT INR APTT Sodium Potassium Chloride Carbon Dioxide Anion Gap BUN Creatinine Estim Creat Clear Calc Estimated GFR POC Glucose Random Glucose Fasting Glucose Lactic Acid Calcium Total Bilirubin AST ALT Alkaline Phosphatase Troponin I High Sens B-Natriuretic Peptide 8143 H Total Protein Albumin Lipase Urine Color Urine Appearance Urine pH Ur Specific [place] Urine Protein Urine Glucose (UA) Urine Ketones Urine Blood Urine Nitrite Ur Leukocyte Esterase Urine RBC Urine WBC Ur Squamous Epith Cells Urine Bacteria Hyaline Casts Granular Casts COVID-19 (MYRIAM) COVID-19 Clin Com Imaging Radiologist's impression: Impressions Chest X-Ray 03/11/22 15:46 IMPRESSION: Hypoexpanded lungs without acute process. Assessment and Plan (1) CHF (congestive heart failure): Status: Acute (2) Fever: Status: Acute Plan 81-year-old gentleman by prostatic aortic valve replacement and single-vessel bypass surgery in 2017 who has mild cardiomyopathy with ejection fraction of 35-40% and congestive heart failure. He is presenting with fever, chills and shortness of breath. Clinically he is in heart failure. Agree with IV diuretics at this stage. He recently had streptococcal bacteremia while he was at [facility]. Reportedly this was cleared on repeat cultures. Interestingly he had chills again and his cultures from admission are showing Gram-positive cocci on Gram stain. He has a bioprosthetic valve and risk for endocarditis. I will start with transthoracic echocardiogram to see if there is any evidence of vegetation. Depending on whether his cultures clear or not he may need TORIN. I think he would benefit from an ID consult to see if there is any other obvious GI or genitourinary source for Streptococcus. Thank you for allowing me to participate in the care of your patient. Please feel free to contact me if you have any questions. Procedures Date of Service Date of Service: 03/12/22
--- NOTE | 2022-03-12 12:49 | MHC.CM.PN ---
CM MET WITH PT AND DAUGHTER WHO WAS AT BEDSIDE PT LIVES ALONE AND IS INDEPENDENT WT CARE PT HAS HOME O2 HE USES PRN, USUALLY AT NIGHT PT HAS NO HOME SERVICES PT REPORTS HE IS COVID VAX X 4 PCP: DANIS SILVEIRA REPORTS THERE IS A HCP ON FILE AT DR HANKINS OFFICE PT WOULD ALSO LIKE TO UPDATE HIS MOLST-HOSPITALIST INFORMED IMM DELIVERED, COPY SENT TO [facility] CURRENT DC PLAN IS HOME WITH NO SERVICES DAUGHTER TO TRANSPORT
[2022-03-12 13:11] VITALS: BP 107/62; PULSE 66; RESP 20; O2SAT 96
[2022-03-12 16:04] VITALS: BP 130/68; PULSE 73; RESP 18; O2SAT 93
[2022-03-12 16:16] VITALS: O2SAT 95
--- NOTE | 2022-03-12 16:30 | HO.PM.IMPN ---
Subjective Subjective Date of Service: 03/12/22 Interval History: breathing improved with diuresis Review of Systems Denies chest pain Admit shortness of breath... improved Denies nausea vomiting diarrhea Denies abdominal pain Admits to subjective fevers at home Physical Exam Vital Signs: Vital Signs: Last Vital Signs Temp 98.2 F 03/11/22 20:34 Pulse 73 03/12/22 16:04 Resp 18 03/12/22 16:04 BP 130/68 03/12/22 16:04 Pulse Ox 95 03/12/22 16:16 O2 Del Method 03/12/22 16:16 O2 Flow Rate 2 03/12/22 16:16 Oxygen Flow Rate 3 03/11/22 15:07 BMI result Body Mass Index 26.5 Const: Other: awake alert oriented x3 no acute distress. Able to speak in full sentences Neck: Other: positive JVD Resp: Other: clear but diminished bilaterally minimal crackles as compared to admit Cardio: Other: no S4; positive S1-S2; no S3 2/6 systolic murmur best heard at apex GI: Other: soft nontender nondistended normo Neuro: Other: cranial nerves 2-12 grossly intact as tested. Motor is 5/5 all extremities. Sensation intact. Cognition appropriate. Gait not visualized Extrem: Other: trace edema bilaterally Objective Data Active Medications Acetaminophen (Acetaminophen 325 Mg Tablet) 650 mg PO Q6H PRN PRN Reason: Pain, Mild (Pain Scale 1-3) Albuterol Sulfate (Albuterol Sulfate 90 Mcg 8 Gm Inhaler) 2 puff INHALE Q6H PRN PRN Reason: wheezing Amlodipine Besylate (Amlodipine Besylate 2.5 Mg Tablet) 2.5 mg PO DAILY [facility]; Protocol Last Admin: 03/12/22 08:30 Dose: 2.5 mg Documented By: MARELY Aspirin (Aspirin Enteric Coated 81 Mg Tablet.) 81 mg PO DAILY [facility] Last Admin: 03/12/22 08:30 Dose: 81 mg Documented By: MARELY Atorvastatin Calcium (Atorvastatin Calcium 80 Mg Tablet) 80 mg PO DAILY [facility] Last Admin: 03/12/22 08:30 Dose: 80 mg Documented By: MARELY Doxazosin Mesylate (Doxazosin Mesylate 2 Mg Tablet) 4 mg PO BEDTIME [facility] Last Admin: 03/11/22 20:38 Dose: 4 mg Documented By: ARTEMIO Ergocalciferol (Ergocalciferol (Vitamin D2) 1,250 Mcg Capsule) 1,250 mcg PO MO [facility] Fluticasone/Vilanterol (Fluticasone/Vilanterol 100/25 Blst.W.Dev) 1 puff INHALE RDAILY [facility] Last Admin: 03/12/22 08:59 Dose: 1 puff Documented By: EMILY Furosemide (Furosemide 40 Mg/4 Ml Vial) 40 mg IVPUSH BID@0630,1630 [facility]; Protocol Last Admin: 03/12/22 16:07 Dose: 40 mg Documented By: LITTLE Comments: Gabapentin (Gabapentin 300 Mg Capsule) 300 mg PO BEDTIME [facility] Last Admin: 03/11/22 20:39 Dose: 300 mg Documented By: ARTEMIO Heparin Sodium (Porcine) (Heparin Sodium,Porcine 5,000 Unit/Ml Vial) 5,000 unit SUBCUT Q12H [facility] Last Admin: 03/12/22 06:53 Dose: 5,000 unit Documented By: MALDONADO Piperacillin Sod/Tazobactam (Sod 2.25 gm/ Sodium Chloride) 50 mls @ 100 mls/hr IV Q8H [facility] Last Admin: 03/12/22 16:08 Dose: 100 mls/hr Documented By: LITTLE Insulin Glargine (Insulin Glargine,Hum.Rec.Anlog 100 Unit/Ml 10 Ml Vial) 21 unit SUBCUT BEDTIME [facility] Last Admin: 03/11/22 20:38 Dose: 21 unit Documented By: ARTEMIO Metoprolol Succinate (Metoprolol Succinate Er 50 Mg Tab.Er.24h) 50 mg PO DAILY [facility]; Protocol Last Admin: 03/12/22 08:30 Dose: 50 mg Documented By: MARELY Montelukast Sodium (Montelukast Sodium 10 Mg Tablet) 10 mg PO DAILY [facility] Last Admin: 03/12/22 08:30 Dose: 10 mg Documented By: MARELY Ondansetron HCl (Ondansetron Hcl 4 Mg/2 Ml Vial) 4 mg IVPUSH Q8H PRN PRN Reason: Nausea and Vomiting Pharmacy Consult (Consult Rx Perform Med Rec) 1 each MISCELLANE ONCE PRN PRN Reason: Consult order Sodium Chloride (0.9 % Sodium Chloride Flush 3 Ml Syringe) 3 ml IVFLUSH QSHIFT [facility] Last Admin: 03/12/22 16:16 Dose: 3 ml Documented By: LITTLE Labs CBC & Chem 7: 03/12/22 04:26 03/12/22 04:26 Labs: Laboratory Results - last 24 hr 03/11/22 03/11/22 03/11/22 16:29 16:55 18:41 MCV MCH MCHC RDW Plt Count MPV Immature Gran % (Auto) Neut % (Auto) Lymph % (Auto) [place] % (Auto) Eos % (Auto) Baso % (Auto) Lymph # (Auto) [place] # (Auto) Eos # (Auto) Baso # (Auto) Abs Immat Gran (auto) Absolute Neuts (auto) Absolute Nucleated RBC Nucleated RBC % (auto) Anion Gap Estim Creat Clear Calc Estimated GFR POC Glucose 152 H Fasting Glucose Calcium Total Bilirubin AST ALT Alkaline Phosphatase B-Natriuretic Peptide Total Protein Albumin Urine Color Yellow Urine Appearance Clear Urine pH 5.5 Ur Specific [place] 1.025 Urine Protein 100 (2+) H Urine Glucose (UA) Negative Urine Ketones Negative Urine Blood Small (1+) H Urine Nitrite Negative Ur Leukocyte Esterase Negative Urine RBC 3-5 H Urine WBC 0-5 Ur Squamous Epith Cells 0-2 Urine Bacteria None Seen Hyaline Casts 0-2 Granular Casts Present COVID-19 (MYRIAM) Negative COVID-19 Clin Com See Note 03/12/22 03/12/22 03/12/22 04:26 04:26 04:26 MCV 81.5 MCH 24.7 L MCHC 30.3 L RDW 14.9 Plt Count 150 L MPV 8.4 L Immature Gran % (Auto) 0.9 H Neut % (Auto) 79.7 H Lymph % (Auto) 8.7 L [place] % (Auto) 9.0 Eos % (Auto) 1.4 Baso % (Auto) 0.3 Lymph # (Auto) 1.3 [place] # (Auto) 1.3 H Eos # (Auto) 0.2 Baso # (Auto) 0.1 Abs Immat Gran (auto) 0.13 H Absolute Neuts (auto) 11.6 H Absolute Nucleated RBC 0.000 Nucleated RBC % (auto) 0.0 Anion Gap 16 Estim Creat Clear Calc 12.6 Estimated GFR 15 POC Glucose Fasting Glucose 131 H Calcium 8.3 L Total Bilirubin 0.8 AST 19 D ALT 30 Alkaline Phosphatase 68 D B-Natriuretic Peptide 8143 H Total Protein 6.4 L Albumin 3.4 L Urine Color Urine Appearance Urine pH Ur Specific [place] Urine Protein Urine Glucose (UA) Urine Ketones Urine Blood Urine Nitrite Ur Leukocyte Esterase Urine RBC Urine WBC Ur Squamous Epith Cells Urine Bacteria Hyaline Casts Granular Casts COVID-19 (MYRIAM) COVID-19 Clin Com Microbiology Microbiology Results: Microbiology 03/11/22 15:36 Blood Culture - Preliminary Blood - Venous Prelim: GPC Gram Stain only 03/11/22 15:36 Blood Culture - Preliminary Blood - Venous Prelim: GPC Gram Stain only Assessment and Plan (1) Fever: Status: Acute (2) Type 2 diabetes mellitus: Status: Acute (3) Hypertension: Status: Acute Plan 81-year-old male with history of congestive heart failure/hypertension/diabetes status post strep bacteremia presents today with shortness of breath and fever. White count emergency room 18,000. 1.Fever (history of group B strep treated with Ancef ) - cultures taken in the ER 2/2 positive for cocci in chains - given initial doses Zosyn ....WBC down. Hold on Vanco pending SS - ID consult in...Agrees with plan 2. Acute on chronic systolic heart failure - IV Lasix b.i.d. - cardiology consult in a.m. ( records from [facility] in chart ) - trend BNP/ troponin 3. Hypertension - acceptable control on current therapies - adjust as indicated 4. Diabetes type 2 - continue outpatient therapies....hold glyburide -cover with Lispro sliding scale Full code Heparin will require ongoing hospitalization for IV diuresis/ antibiotics identification of bacteremia Quality Stroke Does the patient have a stroke diagnosis?: No VTE Prior VTE?: No VTE Risk Level:: Medical - moderate - high VTE Device Contraindication: Treatment Not Indicated VTE Drug Contraindication: N/A - Med Ordered
[2022-03-12 18:47] LABS: Glucose, Whole Blood 183 mg/dL (60-115)
[2022-03-12] MEDS: Gabapentin 300 MG CAPSULE PO (20:17)
[2022-03-12] MEDS: Doxazosin Mesylate 2 MG TABLET 4 MG PO (20:17)
[2022-03-12] MEDS: Insulin Glargine,Hum.rec.anlog 100 UNIT/ML 10 ML VIAL 21 UNIT SUBCUT (20:18)
[2022-03-12 20:25] LABS: Glucose, Whole Blood 252 mg/dL (60-115)
[2022-03-12] MEDS: Insulin Lispro 100 UNIT/ML 3 ML VIAL SUBCUT (20:27)
--- NOTE | 2022-03-12 21:34 | PC.NURSE ---
Pateint alert and oriented x 3. Patient voiding in urinal. Patient on oxygen 2l at night at home here he's on it continuously. Dr. Macias notified of tele: sinus rythym 1st degree heart block is longer than when he came in was 0.24 now 0.28 also had 6 beat run of VT. Patient on iv lasix for diuresis. Will continue with plan of care.
[2022-03-13] VITALS (7 sets, daily range): BP systolic 122–164; BP diastolic 52–88; PULSE 62–79; RESP 16–20; TEMP 36.1–37.1; O2SAT 95–99; BMI 26.5
[2022-03-13] MEDS: Piperacillin Sodium/Tazobactam 2.25 GM in 0.9 % Sodium Chloride 50 ML IV ×4 (00:37→23:02)
[2022-03-13] MEDS: 0.9 % Sodium Chloride Flush 3 ML SYRINGE IVFLUSH ×3 (00:43→20:47)
[2022-03-13] MEDS: Furosemide 40 MG/4 ML VIAL IVPUSH (06:33)
[2022-03-13] MEDS: Heparin Sodium,Porcine 5,000 UNIT/ML VIAL 5000 UNIT SUBCUT ×2 (06:35→20:46)
[2022-03-13 06:43] LABS: MANUAL DIFF FLAG NO
[2022-03-13 06:47] LABS: Basophils Percent Auto 0.5 % (0-2); Eosinophils Absolute Auto 0.8 X10*3/uL (0.0-0.4); Eosinophils Percent Auto 10.2 % (0-4); Hematocrit 30.8 % (42.0-52.0); Hemoglobin 9.4 g/dl (14.0-18.0); Imm Gran Abs Auto 0.04 X10*3/uL (0.00-0.03); Imm Gran Pct Auto 0.5 % (0.0-0.4); Lymphocytes Absolute Auto 1.3 X10*3/uL (1.2-4.9); Lymphocytes Percent Auto 15.9 % (20-40); Mean Corpuscular HGB Conc 30.5 g/dl (31.0-36.0); Mean Corpuscular Hemoglobin 25.1 pg (27.0-33.0); Mean Corpuscular Volume 82.4 fL (80.0-98.0); Mean Platelet Volume 8.9 fL (9.4-12.4); Monocytes Absolute Auto 0.9 X10*3/uL (0.1-1.2); Neutrophils Absolute Auto 4.9 x10*3/uL (2.0-8.3); Neutrophils Percent Auto 61.9 % (45-73); Platelet Count 157 X10*3/uL (160-400); Red Blood Count 3.74 X10*6/uL (4.60-5.80); Red Cell Distribution Width 14.9 % (11.0-16.0); White Blood Count 7.9 X10*3/uL (4.8-10.8)
[2022-03-13 07:06] LABS: B Type Natriuretic Peptide 4024 pg/mL (<100)
[2022-03-13 07:15] LABS: Alanine Aminotransferase 33 U/L (0-40); Albumin Level 3.4 g/dL (3.5-5.0); Alkaline Phosphatase 81 U/L (39-117); Anion Gap 16 (12-20); Aspartate Amino Transferase 27 U/L (5-37); Bilirubin Total 0.9 mg/dL (0.0-1.0); Blood Urea Nitrogen 68 mg/dL (9-16); Calcium 8.6 mg/dL (8.4-10.2); Carbon Dioxide 25 mmol/L (22-29); Chloride 106 mmol/L (96-108); Glucose Fasting 90 mg/dL (60-99); Potassium 4.9 mmol/L (3.3-5.1); Sodium 142 mmol/L (135-145); Total Protein 6.5 g/dL (6.5-8.0)
[2022-03-13 07:18] LABS: Creatinine Clr Calc Pharmacy 10.8; Estimated Glomerular Filt Rate 13
[2022-03-13 07:29] LABS: Glucose, Whole Blood 83 mg/dL (60-115)
--- NOTE | 2022-03-13 08:00 | CA_ITS ---
Transthoracic Echocardiogram Patient (Last, First, Middle): Adolfo Blakely W Gender: Male Date of : 1940 Age: 81 Procedure Date: 03/13/2022 Procedure Type: Transthoracic Echocardiogram Location: ER Height: 160.02 cm Weight: 68.04 kg BSA: 1.71 m2 Heart Rate: 67 bpm BP: 91 / 57 mmHg Pmo Manager: TO Referring MD: Lang Bell DO Symptoms: ?endocarditis Study Quality: Adequate ECG Rhythm: Sinus Conclusions: - Normal left ventricular cavity size. There is mildly increased left ventricular wall thickness. The left ventricular systolic function is moderate to severely decreased. The visually estimated ejection fraction is between 25-30%. - Mildly increased right ventricular cavity size. There is moderately decreased right ventricular systolic function. - The left atrium is moderately dilated. The right atrium is mildly dilated. - A bioprosthetic aortic valve is present. There is mild aortic valve stenosis. The peak aortic velocity is 2.80 m/s. The mean gradient is 16 mmHg. - No obvious vegetation noted. Findings Left Ventricle Normal left ventricular cavity size. There is mildly increased left ventricular wall thickness. The left ventricular systolic function is moderate to severely decreased. The visually estimated ejection fraction is between 25-30%. There is moderate global hypokinesis. Diastolic function is indeterminate on the basis of available data. Right Ventricle Mildly increased right ventricular cavity size. There is moderately decreased right ventricular systolic function. Atria The left atrium is moderately dilated. The right atrium is mildly dilated. Aortic Valve A bioprosthetic aortic valve is present. There is mild aortic valve stenosis. The peak aortic velocity is 2.80 m/s. The mean gradient is 16 mmHg. The aortic valve area is 1.39 cm2. There is trace (trivial) aortic valve regurgitation. Mitral Valve The mitral valve appears normal. There is severe mitral annular calcification. There is mild mitral valve regurgitation. There is no mitral valve stenosis. Pulmonic Valve Normal pulmonic valve structure and function. There is trace pulmonic valve regurgitation. Tricuspid Valve Normal tricuspid valve structure. There is moderate tricuspid valve regurgitation. Moderately elevated right atrial pressure. Moderate pulmonary hypertension is present. Great Vessels There is mild dilatation of the ascending aorta measuring 3.90 cm. Venous The inferior vena cava is normal in size and does not collapse with inspiration. Pericardium/Pleural There is no evidence of pericardial effusion. Prior Study Comparison No prior study available for comparison. Recommendations, Care & Conclusions Consider a TORIN if clinically appropriate. Measurements 2D Linear Measurements IVSd: 1.23 0.6-0.9/0.6-1.0 cm LVIDd: 5.54 3.9-5.3/4.2-5.9 cm LVIDd Index: 3.24 2.4-3.2/2.2-3.1 cm/m2 LVIDs: 4.50 2.0-3.6 cm LVPWd: 1.24 0.7-1.1 cm LA Diam: 4.90 2.7-3.8/3.0-4.0 cm LAIDs Index: 2.87 1.5-2.3 cm/m2 LV Mass: 357.65 67-162/88-224 g LV Mass Index: 209.15 43-95/49-115 g/m2 LVOT Diam: 2.00 3.0+(-)1.3 cm 2D Systolic Function EF 4C: 23.60 >55% EF 2C: 30.10 >55% EF BiP: 26.70 >55% Mitral Valve MV VTI: 0.26 MV Pk Eugene: 1.33 MV Mn Eugene: 0.63 MV Pk Grad: 7.00 MV Mn Grad: 2.00 MV Pk E: 1.11 MV PK A: 0.49 MV Decel Time: 140.00 E/A: 2.30 E'Lateral: 4.46 E'Medial: 3.05 E/E' Med: 36.40 E/E' Lat: 24.90 PHT: 41.00 MVA PHT: 5.37 MVA Continuity: 3.35 Decel [place]: 7.92 Aortic Valve AoV Pk Eugene: 2.80 AoV Mn Eugene: 1.90 AoV VTI: 0.62 AoV Pk Grad: 31.00 Aov Mn Grad: 16.00 RICKY Cont.VTI: 1.39 LVOT LVOT Pk Eugene: 1.31 LVOT Mn Eugene: 0.88 LVOT VTI: 0.28 LVOT Pk Grad: 7.00 LVOT Mn Grad: 4.00 LVOT Diam: 2.00 LVOT Area: 3.14 Diastolic Function MV Pk E: 1.11 MV Pk A: 0.49 E/A: 2.30 E'Medial: 3.05 E/E' Med: 36.40 E' Laterial: 4.46 E/E' Lat: 24.90 Right Ventricle TAPSE (mm): 12.60 TVS' Eugene: 5.80 Tricuspid Valve TR Pk Eugene: 3.26 TR Pk Grad: 43.00 RA Press: 8.00 RVSP: 51.00 Great Vessels Aorta Sinus of Valsalva: 3.61 2.0-3.5 cm Ao Asc: 3.90 2.1-3.4 cm Pulmonary Valve KS Pk Eugene: 1.52 Updated in Other Vendor System with Status of Final Benny Gamble MD electronically signed on 03/14/2022 10:46:49 PM with status of Final
--- NOTE | 2022-03-13 08:07 | PM.PNCARD ---
Subjective Subjective Date of Service: 03/13/22 Interval history: Seen examined at bedside. Feeling better. No further fevers or chills. He is growing g positive cocci in chains in his blood. He recently had streptococcal infection and was treated at [facility]. Physical Exam Vital Signs: Last Vital Signs Temp 97.8 F 03/13/22 07:21 Pulse 62 03/13/22 07:21 Resp 20 03/13/22 07:21 BP 130/73 03/13/22 07:21 Pulse Ox 99 03/13/22 07:21 O2 Del Method 03/13/22 07:21 O2 Flow Rate 2 03/13/22 07:21 Oxygen Flow Rate 3 03/11/22 15:07 BMI result Body Mass Index 26.5 GENERAL APPEARANCE: in no acute distress, pleasant. NECK: no carotid bruit, mild jugular venous distention. SKIN: no suspicious lesions, warm and dry. HEART: Systolic murmur aortic area, regular rate and rhythm. LUNGS: clear to auscultation bilaterally. ABDOMEN: soft, nontender. EXTREMITIES: no edema. PERIPHERAL PULSES: equal. NEUROLOGIC: No gross deficits, AAO X 3 Objective Labs and Meds Result diagrams: 03/13/22 05:38 03/13/22 05:38 Lab results: Laboratory Results - last 24 hr 03/12/22 03/12/22 03/13/22 18:19 20:17 05:38 WBC 7.9 RBC 3.74 L Hgb 9.4 L Hct 30.8 L MCV 82.4 MCH 25.1 L MCHC 30.5 L RDW 14.9 Plt Count 157 L MPV 8.9 L Immature Gran % (Auto) 0.5 H Neut % (Auto) 61.9 Lymph % (Auto) 15.9 L [place] % (Auto) 11.0 Eos % (Auto) 10.2 H Baso % (Auto) 0.5 Lymph # (Auto) 1.3 [place] # (Auto) 0.9 Eos # (Auto) 0.8 H Baso # (Auto) 0.0 Abs Immat Gran (auto) 0.04 H Absolute Neuts (auto) 4.9 Absolute Nucleated RBC 0.000 Nucleated RBC % (auto) 0.0 Sodium Potassium Chloride Carbon Dioxide Anion Gap BUN Creatinine Estim Creat Clear Calc Estimated GFR POC Glucose 183 H 252 H Fasting Glucose Calcium Total Bilirubin AST ALT Alkaline Phosphatase B-Natriuretic Peptide Total Protein Albumin 03/13/22 03/13/22 03/13/22 05:38 05:38 07:25 WBC RBC Hgb Hct MCV MCH MCHC RDW Plt Count MPV Immature Gran % (Auto) Neut % (Auto) Lymph % (Auto) [place] % (Auto) Eos % (Auto) Baso % (Auto) Lymph # (Auto) [place] # (Auto) Eos # (Auto) Baso # (Auto) Abs Immat Gran (auto) Absolute Neuts (auto) Absolute Nucleated RBC Nucleated RBC % (auto) Sodium 142 Potassium 4.9 Chloride 106 Carbon Dioxide 25 Anion Gap 16 BUN 68 H Creatinine 4.46 H* Estim Creat Clear Calc 10.8 Estimated GFR 13 POC Glucose 83 Fasting Glucose 90 Calcium 8.6 Total Bilirubin 0.9 AST 27 D ALT 33 Alkaline Phosphatase 81 B-Natriuretic Peptide 4024 H Total Protein 6.5 Albumin 3.4 L Progress Note: A&P Assessment and plan (1) CHF (congestive heart failure): Status: Acute (2) Bacteremia: Status: Acute Plan [age] gentleman with previous aortic valve replacement and single-vessel bypass surgery who is presenting with shortness of breath fevers and chills. He recently had Strept agalactae infection And was given antibiotics. He is again growing Streptococcus in his blood. He has bioprosthetic valve and there is clearly concern for endocarditis on him. He needs ID consult to look for other sources. We will check transthoracic echocardiogram 1st. If that does not show any obvious issues then definitely he will need TORIN. Known cardiomyopathy with EF of 35 40%. Clinically looks compensated. After diuretics his creatinine has worsened and we are holding the diuretics. Thank you for allowing me to participate in the care of your patient. Please feel free to contact me if you have any questions. Time Spent With Patient Time: Total time spent is greater than 50% in coordination of care (as documented) at patient's floor/unit and/or counseling patient: Progress Note: Quality Stroke Does the patient have a stroke diagnosis?: No Procedures Date of Service Date of Service: 03/13/22
--- NOTE | 2022-03-13 08:52 | PC.NURSE ---
Called pharmacy to bring Breo Ellipta 100/25 to ED Overflow. Med not available in Pyxis. Will administer upon receipt.
[2022-03-13] MEDS: amLODIPine Besylate 2.5 MG TABLET PO (10:42)
[2022-03-13] MEDS: Atorvastatin Calcium 80 MG TABLET PO (10:42)
[2022-03-13] MEDS: Aspirin Enteric Coated 81 MG TABLET.DR PO (10:42)
[2022-03-13] MEDS: Metoprolol Succinate ER 50 MG TAB.ER.24H PO (10:42)
[2022-03-13] MEDS: Montelukast Sodium 10 MG TABLET PO (10:42)
--- NOTE | 2022-03-13 11:15 | P.PNNP_ITS ---
Subjective Subjective Date of Service: 03/13/22 Interval history: breathing improved with diuresis Physical Exam Vital Signs: Vital Signs: Last Vital Signs Temp 97.8 F 03/13/22 07:21 Pulse 62 03/13/22 07:21 Resp 20 03/13/22 07:21 BP 130/73 03/13/22 07:21 Pulse Ox 99 03/13/22 07:21 O2 Del Method 03/13/22 07:21 O2 Flow Rate 2 03/13/22 07:21 Oxygen Flow Rate 3 03/11/22 15:07 BMI result Body Mass Index 26.5 Const: Other: awake alert oriented x3 no acute distress. Able to speak in full sentences HEENT: Head: Yes normal to inspection, Yes normocephalic and Yes atraumatic Ears: external ears normal General nose exam: Normal external nose present Face and sinus: Yes normal facial exam Mouth: Normal oral and palatal mucosa present Throat: Yes posterior oropharynx normal Eyes: General: appearance normal, both eyes and all related structures P upils: Equal, round and reactive pupils present Neck: Other: positive JVD Neck: Yes normal visual inspection, Yes no lymphadenopathy, Yes trachea midline and Yes supple Chest: Chest palpation & inspection: normal inspection of the chest and normal palpation of entire chest wall Resp: Other: clear but diminished bilaterally minimal crackles as compared to admit Effort & Inspection: able to speak in complete sentences Cardio: Other: no S4; positive S1-S2; no S3 2/6 systolic murmur best heard at apex Rate: regular rate Rhythm: regular rhythm Heart sounds: S1 normal heart sound present, S2 normal heart sound present and no murmurs GI: Other: soft nontender nondistended normo Inspection: Yes normal to inspection Palpation (GI): Soft to palpation, nontender and no guarding Auscultation: normal bowel sounds : General: Yes no CVA tenderness Back/Spine/Pelvis: Back: no CVA tenderness Skin: General skin exam: no rashes or lesions noted Neuro: Other: cranial nerves 2-12 grossly intact as tested. Motor is 5/5 all extremities. Sensation intact. Cognition appropriate. Gait not visualized Cranial nerves: Yes CN's II-XII intact bilaterally and Yes Equal, round and reactive pupils present Cognition (Neuro): normal cognition Motor exam (neuro): 5/5 motor strength present throughout Extrem: Other: trace edema bilaterally General: Yes normal to inspection Psych: Appearance: grossly normal Speech and movement: Normal speech and movement present Affect: normal affect Attitude: cooperative Thought process: Normal thought process present Thought content: Normal thought content present Objective Data Labs CBC & Chem 7: 03/13/22 05:38 03/13/22 05:38 Labs: Laboratory Results - last 24 hr 03/12/22 03/12/22 03/13/22 18:19 20:17 05:38 WBC 7.9 RBC 3.74 L Hgb 9.4 L Hct 30.8 L MCV 82.4 MCH 25.1 L MCHC 30.5 L RDW 14.9 Plt Count 157 L MPV 8.9 L Immature Gran % (Auto) 0.5 H Neut % (Auto) 61.9 Lymph % (Auto) 15.9 L [place] % (Auto) 11.0 Eos % (Auto) 10.2 H Baso % (Auto) 0.5 Lymph # (Auto) 1.3 [place] # (Auto) 0.9 Eos # (Auto) 0.8 H Baso # (Auto) 0.0 Abs Immat Gran (auto) 0.04 H Absolute Neuts (auto) 4.9 Absolute Nucleated RBC 0.000 Nucleated RBC % (auto) 0.0 Sodium Potassium Chloride Carbon Dioxide Anion Gap BUN Creatinine Estim Creat Clear Calc Estimated GFR POC Glucose 183 H 252 H Fasting Glucose Calcium Total Bilirubin AST ALT Alkaline Phosphatase B-Natriuretic Peptide Total Protein Albumin 03/13/22 03/13/22 03/13/22 05:38 05:38 07:25 WBC RBC Hgb Hct MCV MCH MCHC RDW Plt Count MPV Immature Gran % (Auto) Neut % (Auto) Lymph % (Auto) [place] % (Auto) Eos % (Auto) Baso % (Auto) Lymph # (Auto) [place] # (Auto) Eos # (Auto) Baso # (Auto) Abs Immat Gran (auto) Absolute Neuts (auto) Absolute Nucleated RBC Nucleated RBC % (auto) Sodium 142 Potassium 4.9 Chloride 106 Carbon Dioxide 25 Anion Gap 16 BUN 68 H Creatinine 4.46 H* Estim Creat Clear Calc 10.8 Estimated GFR 13 POC Glucose 83 Fasting Glucose 90 Calcium 8.6 Total Bilirubin 0.9 AST 27 D ALT 33 Alkaline Phosphatase 81 B-Natriuretic Peptide 4024 H Total Protein 6.5 Albumin 3.4 L Microbiology Microbiology Results: Microbiology 03/11/22 15:36 Blood - Venous Blood Culture - Preliminary Strep agalactiae (Grp B) 03/11/22 15:36 Blood - Venous Blood Culture - Preliminary Strep agalactiae (Grp B) Procedures Date of Service Date of Service: 03/13/22 Assessment & Plan Assessment and plan (1) CHF (congestive heart failure): Status: Acute (2) Bacteremia: Status: Acute Plan [age] gentleman with previous aortic valve replacement and single-vessel bypass surgery who is presenting with shortness of breath fevers and chills. He recently had Strept agalactae infection And was given antibiotics. He is again growing Streptococcus in his blood. He has bioprosthetic valve and there is clearly concern for endocarditis CREAT WORSENED i ORDERED RENAL US AND URINE STUDIES Time Spent With Patient Time: Total time spent is greater than 50% in coordination of care (as documented) at patient's floor/unit and/or counseling patient: Progress Note: Quality Stroke Does the patient have a stroke diagnosis?: No
--- NOTE | 2022-03-13 11:28 | CONS_ITS ---
DATE OF SERVICE: 03/12/2022 REASON FOR CONSULTATION: I was called to assist in the management of the patient's renal failure. HISTORY OF PRESENT ILLNESS: To summarize, Adolfo is a 81-year-old man with multiple medical problems. He has underlying chronic disease and usually sees Dr. Kermit Nguyen at [facility] Adolfo has a complicated medical history and from what I understand, he has chronic kidney disease and the patient is not known at this time since most of his records are from visit and no previous labs available in [facility]. He has a history of congestive heart failure, COPD, and he has had recent infection for which he has had multiple antibiotic therapies including Zosyn and vancomycin. He comes in because of shortness of breath and currently being evaluated for the same. While during this hospitalization, he was found to have a fever and blood culture showed gram-positive cocci in chains. At the time of this admission, his serum creatinine was elevated at 3.18 with a potassium of 5.7. With some IV hydration, there has been no improvement in his serum creatinine and as of this morning, creatinine 3.82. The potassium has slightly improved to 5.2 with some medical treatment. He has not had any imaging studies to rule out obstruction as of now. PAST MEDICAL HISTORY: Ongoing medical problems include: 1. History of chronic kidney disease. 2. Diabetes mellitus. 3. Hypertension. 4. COPD. 5. CHF. REVIEW OF SYSTEMS: Positive for shortness of breath. He had some fever. No headache, nausea, vomiting. No diarrhea. Constipation as above. No hematuria. No joint pain, swelling, or rash. MEDICATIONS: All his current medications were reviewed. PHYSICAL EXAMINATION: GENERAL: Today, Adolfo appears comfortable, not in distress. NECK: Supple. No JVD. Mucosa is dry. LUNGS: Air entry equal to percussion, bilateral scattered crackles. HEART: S1, S2 heard. No gallop. ABDOMEN: Soft, nontender. EXTREMITIES: Trace edema. No rash. No clubbing. VITAL SIGNS: Blood pressure was 115/53, pulse 85, and temperature 99. LABORATORY DATA: WBC 14.6, hemoglobin 9.2, platelets 150. Sodium 141, potassium 5.2, CO2 of 21, BUN 51, creatinine 3.82. BNP was 8143. Urinalysis showed 100/2+ proteinuria, a small amount of blood with 3-5 rbc's. Specific gravity 1.025. INR 1.4, hemoglobin 9.2. Chest x-ray shows hypoexpanded lungs. Pulmonary vascularity was normal. IMPRESSION: 81-year-old man with chronic kidney disease in the setting of hypertension and diabetes mellitus. At this point it is unclear if he has a superimposed acute kidney injury. However, based on the clinical picture, believes that he probably has underlying chronic kidney disease with superimposed acute kidney injury. He has hyperkalemia along with hyperchloremic metabolic acidosis. 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 Obstructive uropathy should be ruled out in this elderly male. RECOMMENDATIONS: Will be to obtain a spot urine for sodium, creatinine, protein. Obtain renal ultrasonogram. Treat hyperkalemia medically. Would administer Lokelma as needed. Keep him on low-potassium diet. Add sodium bicarbonate 650 mg p.o. t.i.d. to correct acidosis. Clinically, he does not appear to be in florid heart failure. He appears comfortable and x-ray findings does not support heart failure. I will hold the Lasix for next day or 2 and watch him clinically. He does have positive blood culture, which needs to be treated. We will follow him closely along with the team. MD MEENA Hartmann/MODL / [id number]
[2022-03-13 12:06] LABS: Iron 28 mcg/dL (45-160); Percent Iron Saturation 8 % (15-50); Total Iron Binding Capacity 346 mcg/dL (228-428); Unsaturated Iron Binding 318 ug/dL
[2022-03-13 12:07] LABS: Glucose, Whole Blood 170 mg/dL (60-115)
--- NOTE | 2022-03-13 12:16 | PC.NURSE ---
Patient's daughter is at the bedside visiting. Left eye noted to be newly red. Sclera is red/bloody. Pt was surprised by this statement and states really?! it doesn't hurt or anything . notified. Pt also had multiple questions that are outside of this RN's scope of practice.
[2022-03-13 12:27] LABS: Ferritin 101 ng/mL (20-250)
[2022-03-13] MEDS: Insulin Lispro 100 UNIT/ML 3 ML VIAL SUBCUT ×2 (13:34→20:47)
[2022-03-13 13:37] LABS: Osmolality Urine 361 mosm/kg (373-1093)
[2022-03-13 13:53] LABS: Creatinine Urine 35.38 mg/dL; Microalbum/Creatinine Ratio Ur 698.1 ug/mg cr
--- NOTE | 2022-03-13 14:14 | MHC.CM.PN ---
PT NOT YET MEDICALLY CLEARED DCP CONTINUES TO BE HOME WITH NO SERVICES DAUGHTER TO TRANSPORT
--- NOTE | 2022-03-13 14:36 | PC.NURSE ---
Renal ultrasound completed at the bedside. Awaiting results.
--- NOTE | 2022-03-13 15:11 | P.PNIM_ITS ---
Subjective Subjective Date of Service: 03/13/22 Interval History: Feeling better denies fever chills, noted to have redness left eye, no acute overnight events, denies nausea vomiting abdominal pain, denies cough sputum production denies rash, denies urinary symptoms of urgency frequency, daughter at bedside inform the patient finish course of by mouth antibiotic as prescribed by [facility], no acute overnight events. Review of Systems Review of Systems: Yes all other systems are reviewed and are negative Physical Exam Vital Signs: Vital Signs: Last Vital Signs Temp 97 F 03/13/22 11:56 Pulse 62 03/13/22 11:56 Resp 20 03/13/22 11:56 BP 129/52 L 03/13/22 11:56 Pulse Ox 95 03/13/22 11:56 O2 Del Method 03/13/22 11:56 O2 Flow Rate 2 03/13/22 07:21 Oxygen Flow Rate 3 03/11/22 15:07 BMI result Body Mass Index 26.5 Const: Other: General awake alert x3, in no acute distress. Left eye subconjunctival hemorrhage Neck no JVD. CVS regular rate rhythm, Respiratory lungs clear to auscultation, no respiratory distress, no wheeze, no rhonchi. Gastrointestinal abdomen soft, nontender, bowel sounds audible, no guarding , no rigidity. Extremities trace edema. Neuro nonfocal , speech clear. Skin no rash Psych appropriate affect Objective Data Active Medications Acetaminophen (Acetaminophen 325 Mg Tablet) 650 mg PO Q6H PRN PRN Reason: Pain, Mild (Pain Scale 1-3) Albuterol Sulfate (Albuterol Sulfate 90 Mcg 8 Gm Inhaler) 2 puff INHALE Q6H PRN PRN Reason: wheezing Amlodipine Besylate (Amlodipine Besylate 2.5 Mg Tablet) 2.5 mg PO DAILY [facility]; Protocol Last Admin: 03/13/22 10:42 Dose: 2.5 mg Documented By: KELLEE Aspirin (Aspirin Enteric Coated 81 Mg Tablet.) 81 mg PO DAILY [facility] Last Admin: 03/13/22 10:42 Dose: 81 mg Documented By: KELLEE Atorvastatin Calcium (Atorvastatin Calcium 80 Mg Tablet) 80 mg PO DAILY [facility] Last Admin: 03/13/22 10:42 Dose: 80 mg Documented By: KELLEE Doxazosin Mesylate (Doxazosin Mesylate 2 Mg Tablet) 4 mg PO BEDTIME [facility] Last Admin: 03/12/22 20:17 Dose: 4 mg Documented By: LITTLE Ergocalciferol (Ergocalciferol (Vitamin D2) 1,250 Mcg Capsule) 1,250 mcg PO MO [facility] Fluticasone/Vilanterol (Fluticasone/Vilanterol 100/25 Blst.W.Dev) 1 puff INHALE RDAILY [facility] Last Admin: 03/13/22 08:42 Dose: Not Given Documented By: EMILY Non-Admin Reason: See Note Gabapentin (Gabapentin 300 Mg Capsule) 300 mg PO BEDTIME [facility] Last Admin: 03/12/22 20:17 Dose: 300 mg Documented By: LITTLE Heparin Sodium (Porcine) (Heparin Sodium,Porcine 5,000 Unit/Ml Vial) 5,000 unit SUBCUT Q12H [facility] Last Admin: 03/13/22 06:35 Dose: 5,000 unit Documented By: BLOSSOM Piperacillin Sod/Tazobactam (Sod 2.25 gm/ Sodium Chloride) 50 mls @ 100 mls/hr IV Q8H [facility] Last Infusion: 03/13/22 07:19 Dose: 100 mls/hr Documented By: BLOSSOM Insulin Glargine (Insulin Glargine,Hum.Rec.Anlog 100 Unit/Ml 10 Ml Vial) 21 unit SUBCUT BEDTIME [facility] Last Admin: 03/12/22 20:18 Dose: 21 unit Documented By: LITTLE Insulin Human Lispro (Insulin Lispro 100 Unit/Ml 3 Ml Vial) 0 unit SUBCUT QIDACHS [facility]; Protocol Last Admin: 03/13/22 13:34 Dose: 2 unit Documented By: KELLEE Comments: lunch arrived late Metoprolol Succinate (Metoprolol Succinate Er 50 Mg Tab.Er.24h) 50 mg PO DAILY [facility]; Protocol Last Admin: 03/13/22 10:42 Dose: 50 mg Documented By: KELLEE Montelukast Sodium (Montelukast Sodium 10 Mg Tablet) 10 mg PO DAILY [facility] Last Admin: 03/13/22 10:42 Dose: 10 mg Documented By: KELLEE Ondansetron HCl (Ondansetron Hcl 4 Mg/2 Ml Vial) 4 mg IVPUSH Q8H PRN PRN Reason: Nausea and Vomiting Pharmacy Consult (Consult Rx Perform Med Rec) 1 each MISCELLANE ONCE PRN PRN Reason: Consult order Sodium Chloride (0.9 % Sodium Chloride Flush 3 Ml Syringe) 3 ml IVFLUSH QSHIFT [facility] Last Admin: 03/13/22 06:36 Dose: 3 ml Documented By: BLOSSOM Labs CBC & Chem 7: 03/13/22 05:38 03/13/22 05:38 Labs: Laboratory Results - last 24 hr 03/12/22 03/12/22 03/13/22 18:19 20:17 05:38 MCV 82.4 MCH 25.1 L MCHC 30.5 L RDW 14.9 Plt Count 157 L MPV 8.9 L Immature Gran % (Auto) 0.5 H Neut % (Auto) 61.9 Lymph % (Auto) 15.9 L [place] % (Auto) 11.0 Eos % (Auto) 10.2 H Baso % (Auto) 0.5 Lymph # (Auto) 1.3 [place] # (Auto) 0.9 Eos # (Auto) 0.8 H Baso # (Auto) 0.0 Abs Immat Gran (auto) 0.04 H Absolute Neuts (auto) 4.9 Absolute Nucleated RBC 0.000 Nucleated RBC % (auto) 0.0 Anion Gap Estim Creat Clear Calc Estimated GFR POC Glucose 183 H 252 H Fasting Glucose Calcium Iron TIBC % Saturation Unsat Iron Binding Ferritin Total Bilirubin AST ALT Alkaline Phosphatase B-Natriuretic Peptide Total Protein Albumin Urine Osmolality Ur Random Sodium Urine Creatinine Urine Microalbumin Microalb/Creat Ratio 03/13/22 03/13/22 03/13/22 05:38 05:38 07:25 MCV MCH MCHC RDW Plt Count MPV Immature Gran % (Auto) Neut % (Auto) Lymph % (Auto) [place] % (Auto) Eos % (Auto) Baso % (Auto) Lymph # (Auto) [place] # (Auto) Eos # (Auto) Baso # (Auto) Abs Immat Gran (auto) Absolute Neuts (auto) Absolute Nucleated RBC Nucleated RBC % (auto) Anion Gap 16 Estim Creat Clear Calc 10.8 Estimated GFR 13 POC Glucose 83 Fasting Glucose 90 Calcium 8.6 Iron TIBC % Saturation Unsat Iron Binding Ferritin Total Bilirubin 0.9 AST 27 D ALT 33 Alkaline Phosphatase 81 B-Natriuretic Peptide 4024 H Total Protein 6.5 Albumin 3.4 L Urine Osmolality Ur Random Sodium Urine Creatinine Urine Microalbumin Microalb/Creat Ratio 03/13/22 03/13/22 03/13/22 11:34 12:02 13:08 MCV MCH MCHC RDW Plt Count MPV Immature Gran % (Auto) Neut % (Auto) Lymph % (Auto) [place] % (Auto) Eos % (Auto) Baso % (Auto) Lymph # (Auto) [place] # (Auto) Eos # (Auto) Baso # (Auto) Abs Immat Gran (auto) Absolute Neuts (auto) Absolute Nucleated RBC Nucleated RBC % (auto) Anion Gap Estim Creat Clear Calc Estimated GFR POC Glucose 170 H Fasting Glucose Calcium Iron 28 L TIBC 346 % Saturation 8 L Unsat Iron Binding 318 Ferritin 101 Total Bilirubin AST ALT Alkaline Phosphatase B-Natriuretic Peptide Total Protein Albumin Urine Osmolality Ur Random Sodium 94.0 Urine Creatinine 35.38 Urine Microalbumin 247.0 Microalb/Creat Ratio 698.1 03/13/22 13:08 MCV MCH MCHC RDW Plt Count MPV Immature Gran % (Auto) Neut % (Auto) Lymph % (Auto) [place] % (Auto) Eos % (Auto) Baso % (Auto) Lymph # (Auto) [place] # (Auto) Eos # (Auto) Baso # (Auto) Abs Immat Gran (auto) Absolute Neuts (auto) Absolute Nucleated RBC Nucleated RBC % (auto) Anion Gap Estim Creat Clear Calc Estimated GFR POC Glucose Fasting Glucose Calcium Iron TIBC % Saturation Unsat Iron Binding Ferritin Total Bilirubin AST ALT Alkaline Phosphatase B-Natriuretic Peptide Total Protein Albumin Urine Osmolality 361 L Ur Random Sodium Urine Creatinine Urine Microalbumin Microalb/Creat Ratio Microbiology Microbiology Results: Microbiology 03/11/22 15:36 Blood Culture - Preliminary Blood - Venous Strep agalactiae (Grp B) 03/11/22 15:36 Blood Culture - Preliminary Blood - Venous Strep agalactiae (Grp B) Assessment and Plan (1) Fever: Status: Acute (2) Type 2 diabetes mellitus: Status: Acute (3) Hypertension: Status: Acute Plan 81-year-old male with history of congestive heart failure/hypertension/diabetes status post strep bacteremia presents today with shortness of breath and fever. White count emergency room 18,000. 1. group B Streptococcus agalactiae bacteremia No recurrent fevers in last 48 hours, no source of infection found UA benign chest x-ray normal, no skin lesion,(history of group B strep infection treated at [facility] initially with Zosyn and vanco ( finish course of amoxicillin last month) no source of infection was found at [facility] - on IVs Zosyn renally dose,WBC down, obtain echocardiogram, repeat blood culture - case discussed with ID await further recommendation 2. Acute on chronic systolic heart failure - appears euvolemic will DC IV Lasix question elevated BNP related to renal failure 3. Acute kidney injury Worsening creatinine likely due to diuretics will DC Lasix, avoid nephrotoxic, renal ultrasound pending, being followed by Nephrology follow BMP 4. Hypertension - stable blood pressure continue home medication 5. Diabetes type 2 - continue Lantus and insulin sliding scale, recommend diabetic diet ,hold glyburide due to renal disease Full code Heparin will require ongoing hospitalization for IV antibiotics for bacteremia Quality Stroke Does the patient have a stroke diagnosis?: No VTE Prior VTE?: No VTE Risk Level:: Medical - moderate - high VTE Device Contraindication: Treatment Not Indicated VTE Drug Contraindication: N/A - Med Ordered
--- NOTE | 2022-03-13 16:49 | P.CNID_ITS ---
History of Present Illness Data of Consult Service Date: 03/13/22 Requesting physician: Yamil Houston Primary Care Provider: Antony Pappas MD HPI Reason for consult: bacteremia He presents with weakness and shortness of breath. He has Group B strep bacteremia He has had last month at [facility] 01/26=01/30 strep Group B as well. Review of Systems Review of Systems: Yes Unobtainable due to mental condition [facility] Past Medical History Medical History Asthma CHF (congestive heart failure) COPD (chronic obstructive pulmonary disease) Diabetes Hypertension Family History Family history: reviewed and not pertinent Social History Social History Patient Tobacco Use Status: Former Tobacco user Use of substances other than those prescribed or required for medical reasons: No Advance Directives: Yes Advance Directives Information Provided: No Advance Directives on File: No service: No Current occupational status: retired Meds Allergies Allergy/AdvReac Type Severity Reaction Status Date / Time No Known Allergies Allergy Verified 03/11/22 15:12 Active Medications: Current Medications Acetaminophen (Acetaminophen 325 Mg Tablet) 650 mg PO Q6H PRN PRN Reason: Pain, Mild (Pain Scale 1-3) Albuterol Sulfate (Albuterol Sulfate 90 Mcg 8 Gm Inhaler) 2 puff INHALE Q6H PRN PRN Reason: wheezing Amlodipine Besylate (Amlodipine Besylate 2.5 Mg Tablet) 2.5 mg PO DAILY [facility]; Protocol Last Admin: 03/13/22 10:42 Dose: 2.5 mg Aspirin (Aspirin Enteric Coated 81 Mg Tablet.Dr) 81 mg PO DAILY [facility] Last Admin: 03/13/22 10:42 Dose: 81 mg Atorvastatin Calcium (Atorvastatin Calcium 80 Mg Tablet) 80 mg PO DAILY [facility] Last Admin: 03/13/22 10:42 Dose: 80 mg Doxazosin Mesylate (Doxazosin Mesylate 2 Mg Tablet) 4 mg PO BEDTIME [facility] Last Admin: 03/12/22 20:17 Dose: 4 mg Ergocalciferol (Ergocalciferol (Vitamin D2) 1,250 Mcg Capsule) 1,250 mcg PO MO [facility] Fluticasone/Vilanterol (Fluticasone/Vilanterol 100/25 Blst.W.Dev) 1 puff INHALE RDAILY [facility] Last Admin: 03/13/22 08:42 Dose: Not Given Gabapentin (Gabapentin 300 Mg Capsule) 300 mg PO BEDTIME [facility] Last Admin: 03/12/22 20:17 Dose: 300 mg Heparin Sodium (Porcine) (Heparin Sodium,Porcine 5,000 Unit/Ml Vial) 5,000 unit SUBCUT Q12H [facility] Last Admin: 03/13/22 06:35 Dose: 5,000 unit Piperacillin Sod/Tazobactam (Sod 2.25 gm/ Sodium Chloride) 50 mls @ 100 mls/hr IV Q8H [facility] Last Admin: 03/13/22 16:08 Dose: 100 mls/hr Insulin Glargine (Insulin Glargine,Hum.Rec.Anlog 100 Unit/Ml 10 Ml Vial) 21 unit SUBCUT BEDTIME [facility] Last Admin: 03/12/22 20:18 Dose: 21 unit Insulin Human Lispro (Insulin Lispro 100 Unit/Ml 3 Ml Vial) 0 unit SUBCUT QIDACHS [facility]; Protocol Last Admin: 03/13/22 13:34 Dose: 2 unit Metoprolol Succinate (Metoprolol Succinate Er 50 Mg Tab.Er.24h) 50 mg PO DAILY [facility]; Protocol Last Admin: 03/13/22 10:42 Dose: 50 mg Montelukast Sodium (Montelukast Sodium 10 Mg Tablet) 10 mg PO DAILY [facility] Last Admin: 03/13/22 10:42 Dose: 10 mg Ondansetron HCl (Ondansetron Hcl 4 Mg/2 Ml Vial) 4 mg IVPUSH Q8H PRN PRN Reason: Nausea and Vomiting Pharmacy Consult (Consult Rx Perform Med Rec) 1 each MISCELLANE ONCE PRN PRN Reason: Consult order Sodium Chloride (0.9 % Sodium Chloride Flush 3 Ml Syringe) 3 ml IVFLUSH QSHIFT [facility] Last Admin: 03/13/22 15:34 Dose: Not Given Home Medications Medication Instructions Recorded Confirmed Last Taken Type albuterol sulfate 90 mcg/actuation 2 puff PO Q6H PRN wheezing 03/11/22 03/11/22 Unknown History aerosol inhaler amlodipine 2.5 mg tablet 1 tab PO DAILY 03/11/22 03/11/22 03/11/22 History aspirin 81 mg tablet,delayed 81 mg PO DAILY 03/11/22 03/11/2203/11/22 History release atorvastatin 80 mg tablet 1 tab PO DAILY 03/11/22 03/11/22 03/11/22 History ergocalciferol (vitamin D2) 1,250 1 cap PO MO 03/11/22 03/11/22 03/09/22 History mcg (50,000 unit) capsule fluticasone 250 mcg-salmeterol 50 1 puff inhalation BID 03/11/22 03/11/22 03/11/22 History mcg/dose blistr powdr for inhalation (Advair Diskus) furosemide 20 mg tablet 2 tab PO DAILY 03/11/22 03/11/22 03/11/22 History furosemide 20 mg tablet 20 mg PO DAILY@1700 03/11/22 03/11/22 03/10/22 History gabapentin 300 mg capsule 1 cap PO BEDTIME 03/11/22 03/11/22 03/10/22 History glipizide 10 mg tablet 1 tab PO BID 03/11/22 03/11/22 03/11/22 History insulin NPH isoph U-100 human 100 9 unit subcut BEDTIME 03/11/22 03/11/22 03/10/22 History unit/mL subcutaneous suspension (Novolin N NPH U-100 Insulin isophane) insulin NPH isoph U-100 human 100 18 unit subcut DAILY 03/11/22 03/11/22 03/11/22 History unit/mL subcutaneous suspension (Novolin N NPH U-100 Insulin isophane) metoprolol succinate 50 mg 1 tab PO DAILY 03/11/22 03/11/22 03/11/22 History tablet,extended release 24 hr montelukast 10 mg tablet 1 tab PO DAILY 03/11/22 03/11/22 03/11/22 History terazosin 5 mg capsule 1 cap PO BEDTIME 03/11/22 03/11/22 03/10/22 History Physical Exam Vital Signs: Vital Signs: Last Vital Signs Temp 97.6 F 03/13/22 16:00 Pulse 78 03/13/22 16:00 Resp 16 03/13/22 16:00 BP 122/59 L 03/13/22 16:00 Pulse Ox 96 03/13/22 16:00 O2 Del Method 03/13/22 16:00 O2 Flow Rate 2 03/13/22 16:00 Oxygen Flow Rate 3 03/11/22 15:07 BMI result Body Mass Index 26.5 Const: General: cooperative HEENT: Head: Yes normal to inspection Face and sinus: Yes normal facial exam Mouth: Normal oral and palatal mucosa present Teeth and gingiva: dentition normal Eyes: General: appearance normal, both eyes and all related structures Pupils: Equal, round and reactive pupils present Resp: Effort & Inspection: normal respiratory effort Cardio: Rate: regular rate Rhythm: regular rhythm GI: Palpation (GI): Soft to palpation and nontender : General: Yes no CVA tenderness Back/Spine/Pelvis: Back: no CVA tenderness Skin: General skin exam: no rashes or lesions noted Neuro: General: moves all extremities Cranial nerves: Yes Equal, round and reactive pupils present Extrem: General: Yes normal to inspection Psych: Appearance: grossly normal Results Labs CBC & Chem 7: 03/13/22 05:38 03/13/22 05:38 Labs: Short CBC 03/13/22 Range/Units 05:38 WBC 7.9 (4.8-10.8) X10*3/uL Hgb 9.4 L (14.0-18.0) g/dl Hct 30.8 L (42.0-52.0) % Plt Count 157 L (160-400) X10*3/uL BMP 03/13/22 05:38 Sodium 142 Potassium 4.9 Chloride 106 Carbon Dioxide 25 BUN 68 H Creatinine 4.46 H* Calcium 8.6 Liver Function 03/13/22 Range/Units 05:38 Total Bilirubin 0.9 (0.0-1.0) mg/dL AST 27 D (5-37) U/L ALT 33 (0-40) U/L Alkaline Phosphatase 81 (39-117) U/L Albumin 3.4 L (3.5-5.0) g/dL Microbiology Microbiology Results: Microbiology 03/11/22 15:36 Blood - Venous Blood Culture - Preliminary Strep agalactiae (Grp B) 03/11/22 15:36 Blood - Venous Blood Culture - Preliminary Strep agalactiae (Grp B) Assessment and Plan (1) Bacteremia: Status: Acute Recurrent Group B strep bacteremia He had last month as well Strong concern for endocarditis with repeat or persistent bacteremia. (2) Type 2 diabetes mellitus: Status: Acute Plan Would continue Ceftriaxone daily. TTE and then probable TORIN.
[2022-03-13 18:48] LABS: Glucose, Whole Blood 283 mg/dL (60-115)
[2022-03-13 20:28] LABS: Glucose, Whole Blood 402 mg/dL (60-115)
[2022-03-13] MEDS: Doxazosin Mesylate 2 MG TABLET 4 MG PO (20:46)
[2022-03-13] MEDS: Gabapentin 300 MG CAPSULE PO (20:46)
[2022-03-13] MEDS: Insulin Glargine,Hum.rec.anlog 100 UNIT/ML 10 ML VIAL 21 UNIT SUBCUT (20:47)
[2022-03-14] MEDS: Piperacillin Sodium/Tazobactam 2.25 GM in 0.9 % Sodium Chloride 50 ML IV (06:04)
[2022-03-14] MEDS: Heparin Sodium,Porcine 5,000 UNIT/ML VIAL 5000 UNIT SUBCUT ×2 (06:09→18:16)
[2022-03-14 06:49] LABS: MANUAL DIFF FLAG NO
[2022-03-14 06:56] LABS: Basophils Absolute Auto 0.1 X10*3/uL (0.0-0.2); Basophils Percent Auto 0.8 % (0-2); Eosinophils Absolute Auto 0.8 X10*3/uL (0.0-0.4); Eosinophils Percent Auto 12.7 % (0-4); Hematocrit 30.3 % (42.0-52.0); Hemoglobin 9.2 g/dl (14.0-18.0); Imm Gran Abs Auto 0.02 X10*3/uL (0.00-0.03); Imm Gran Pct Auto 0.3 % (0.0-0.4); Lymphocytes Percent Auto 16.3 % (20-40); Mean Corpuscular HGB Conc 30.4 g/dl (31.0-36.0); Mean Corpuscular Hemoglobin 24.7 pg (27.0-33.0); Mean Corpuscular Volume 81.5 fL (80.0-98.0); Monocytes Absolute Auto 0.6 X10*3/uL (0.1-1.2); Monocytes Percent Auto 9.5 % (2-11); Neutrophils Absolute Auto 3.8 x10*3/uL (2.0-8.3); Neutrophils Percent Auto 60.4 % (45-73); Platelet Count 168 X10*3/uL (160-400); Red Blood Count 3.72 X10*6/uL (4.60-5.80); Red Cell Distribution Width 14.8 % (11.0-16.0); White Blood Count 6.3 X10*3/uL (4.8-10.8)
[2022-03-14 07:24] LABS: Alanine Aminotransferase 31 U/L (0-40); Albumin Level 3.5 g/dL (3.5-5.0); Alkaline Phosphatase 73 U/L (39-117); Anion Gap 18 (12-20); Aspartate Amino Transferase 23 U/L (5-37); Bilirubin Total 0.8 mg/dL (0.0-1.0); Blood Urea Nitrogen 65 mg/dL (9-16); Calcium 8.6 mg/dL (8.4-10.2); Carbon Dioxide 24 mmol/L (22-29); Chloride 106 mmol/L (96-108); Estimated Glomerular Filt Rate 15; Glucose Fasting 86 mg/dL (60-99); Potassium 4.7 mmol/L (3.3-5.1); Sodium 143 mmol/L (135-145); Total Protein 6.6 g/dL (6.5-8.0)
[2022-03-14 07:28] VITALS: BP 135/73; PULSE 64; RESP 17; TEMP 37.6; O2SAT 100
[2022-03-14] MEDS: Fluticasone/Vilanterol 100/25 BLST.W.DEV 1 PUFF INHALE (07:40)
[2022-03-14 07:42] VITALS: PULSE 63; RESP 16; O2SAT 98
[2022-03-14 07:59] LABS: Glucose, Whole Blood 67 mg/dL (60-115)
[2022-03-14] MEDS: Aspirin Enteric Coated 81 MG TABLET.DR PO (08:36)
[2022-03-14] MEDS: Atorvastatin Calcium 80 MG TABLET PO (08:36)
[2022-03-14] MEDS: 0.9 % Sodium Chloride Flush 3 ML SYRINGE IVFLUSH ×3 (08:36→20:49)
[2022-03-14] MEDS: amLODIPine Besylate 2.5 MG TABLET PO (08:36)
[2022-03-14] MEDS: Montelukast Sodium 10 MG TABLET PO (08:36)
[2022-03-14] MEDS: Metoprolol Succinate ER 50 MG TAB.ER.24H PO (08:44)
[2022-03-14 08:51] LABS: Glucose, Whole Blood 128 mg/dL (60-115)
[2022-03-14 09:38] LABS: Glucose, Whole Blood 141 mg/dL (60-115)
--- NOTE | 2022-03-14 10:50 | HO.PM.IMPN ---
Subjective Subjective Date of Service: 03/14/22 Interval History: Noted to have low blood sugars this morning, since skipped snack last night but usually takes at home, and likely due to acute on ckd , otherwise denies fever chills, no new symptoms of shortness of breath, no urinary symptoms, no new rash or skin lesions, denies chest pain, no palpitation. Denies GI symptoms of nausea, vomiting, diarrhea Review of Systems Review of Systems: Yes all other systems are reviewed and are negative Physical Exam Vital Signs: Vital Signs: Last Vital Signs Temp 99.7 F 03/14/22 07:28 Pulse 63 03/14/22 07:42 Resp 16 03/14/22 07:42 BP 135/73 03/14/22 07:28 Pulse Ox 100 03/14/22 07:28 O2 Del Method 03/14/22 07:28 O2 Flow Rate 3 03/14/22 07:28 Oxygen Flow Rate 3 03/11/22 15:07 BMI result Body Mass Index 26.5 Const: Other: General awake alert x3, in no acute distress.? Left eye subconjunctival hemorrhage Neck no JVD. CVS? regular rate rhythm, Respiratory lungs clear to auscultation, no respiratory distress, no wheeze, no rhonchi. Gastrointestinal abdomen soft, nontender, bowel sounds audible, no guarding , no rigidity. Extremities trace edema. Neuro nonfocal , speech clear. Skin no rash, few dry scabs with no surrounding redness lower extremities Psych appropriate affect Objective Data Active Medications Acetaminophen (Acetaminophen 325 Mg Tablet) 650 mg PO Q6H PRN PRN Reason: Pain, Mild (Pain Scale 1-3) Albuterol Sulfate (Albuterol Sulfate 90 Mcg 8 Gm Inhaler) 2 puff INHALE Q6H PRN PRN Reason: wheezing Amlodipine Besylate (Amlodipine Besylate 2.5 Mg Tablet) 2.5 mg PO DAILY [facility]; Protocol Last Admin: 03/14/22 08:36 Dose: 2.5 mg Documented By: RUSS Aspirin (Aspirin Enteric Coated 81 Mg Tablet.) 81 mg PO DAILY [facility] Last Admin: 03/14/22 08:36 Dose: 81 mg Documented By: RUSS Atorvastatin Calcium (Atorvastatin Calcium 80 Mg Tablet) 80 mg PO DAILY [facility] Last Admin: 03/14/22 08:36 Dose: 80 mg Documented By: RUSS Doxazosin Mesylate (Doxazosin Mesylate 2 Mg Tablet) 4 mg PO BEDTIME [facility] Last Admin: 03/13/22 20:46 Dose: 4 mg Documented By: BHARGAVI Ergocalciferol (Ergocalciferol (Vitamin D2) 1,250 Mcg Capsule) 1,250 mcg PO MO [facility] Fluticasone/Vilanterol (Fluticasone/Vilanterol 100/25 Blst.W.Dev) 1 puff INHALE RDAILY [facility] Last Admin: 03/14/22 07:40 Dose: 1 puff Documented By: EMILY Gabapentin (Gabapentin 300 Mg Capsule) 300 mg PO BEDTIME [facility] Last Admin: 03/13/22 20:46 Dose: 300 mg Documented By: BHARGAVI Heparin Sodium (Porcine) (Heparin Sodium,Porcine 5,000 Unit/Ml Vial) 5,000 unit SUBCUT Q12H [facility] Last Admin: 03/14/22 06:09 Dose: 5,000 unit Documented By: MARYANNE Ceftriaxone Sodium 1 gm/ (Sodium Chloride) 50 mls @ 100 mls/hr IV Q24H [facility] Insulin Glargine (Insulin Glargine,Hum.Rec.Anlog 100 Unit/Ml 10 Ml Vial) 15 unit SUBCUT BEDTIME [facility] Insulin Human Lispro (Insulin Lispro 100 Unit/Ml 3 Ml Vial) 0 unit SUBCUT QIDACHS [facility]; Protocol Last Admin: 03/14/22 08:38 Dose: Not Given Documented By: RUSS Non-Admin Reason: BS 67, 0J given BS rechecked 128 , MD aware Metoprolol Succinate (Metoprolol Succinate Er 50 Mg Tab.Er.24h) 50 mg PO DAILY [facility]; Protocol Last Admin: 03/14/22 08:44 Dose: 50 mg Documented By: RUSS Montelukast Sodium (Montelukast Sodium 10 Mg Tablet) 10 mg PO DAILY [facility] Last Admin: 03/14/22 08:36 Dose: 10 mg Documented By: RUSS Ondansetron HCl (Ondansetron Hcl 4 Mg/2 Ml Vial) 4 mg IVPUSH Q8H PRN PRN Reason: Nausea and Vomiting Pharmacy Consult (Consult Rx Perform Med Rec) 1 each MISCELLANE ONCE PRN PRN Reason: Consult order Sodium Chloride (0.9 % Sodium Chloride Flush 3 Ml Syringe) 3 ml IVFLUSH QSHIFT [facility] Last Admin: 03/14/22 08:36 Dose: 3 ml Documented By: RUSS Labs CBC & Chem 7: 03/14/22 06:34 03/14/22 06:34 Labs: Laboratory Results - last 24 hr 03/13/22 03/13/22 03/13/22 11:34 12:02 13:08 MCV MCH MCHC RDW Plt Count MPV Immature Gran % (Auto) Neut % (Auto) Lymph % (Auto) [place] % (Auto) Eos % (Auto) Baso % (Auto) Lymph # (Auto) [place] # (Auto) Eos # (Auto) Baso # (Auto) Abs Immat Gran (auto) Absolute Neuts (auto) Absolute Nucleated RBC Nucleated RBC % (auto) Anion Gap Estim Creat Clear Calc Estimated GFR POC Glucose 170 H Random Glucose Fasting Glucose Calcium Iron 28 L TIBC 346 % Saturation 8 L Unsat Iron Binding 318 Ferritin 101 Total Bilirubin AST ALT Alkaline Phosphatase Total Protein Albumin Urine Osmolality Ur Random Sodium 94.0 Urine Creatinine 35.38 Urine Microalbumin 247.0 Microalb/Creat Ratio 698.1 03/13/22 03/13/22 03/13/22 13:08 18:43 20:09 MCV MCH MCHC RDW Plt Count MPV Immature Gran % (Auto) Neut % (Auto) Lymph % (Auto) [place] % (Auto) Eos % (Auto) Baso % (Auto) Lymph # (Auto) [place] # (Auto) Eos # (Auto) Baso # (Auto) Abs Immat Gran (auto) Absolute Neuts (auto) Absolute Nucleated RBC Nucleated RBC % (auto) Anion Gap Estim Creat Clear Calc Estimated GFR POC Glucose 283 H 402 H* Random Glucose Fasting Glucose Calcium Iron TIBC % Saturation Unsat Iron Binding Ferritin Total Bilirubin AST ALT Alkaline Phosphatase Total Protein Albumin Urine Osmolality 361 L Ur Random Sodium Urine Creatinine Urine Microalbumin Microalb/Creat Ratio 03/14/22 03/14/22 03/14/22 06:34 06:34 07:30 MCV 81.5 MCH 24.7 L MCHC 30.4 L RDW 14.8 Plt Count 168 MPV 9.0 L Immature Gran % (Auto) 0.3 Neut % (Auto) 60.4 Lymph % (Auto) 16.3 L [place] % (Auto) 9.5 Eos % (Auto) 12.7 H Baso % (Auto) 0.8 Lymph # (Auto) 1.0 L [place] # (Auto) 0.6 Eos # (Auto) 0.8 H Baso # (Auto) 0.1 Abs Immat Gran (auto) 0.02 Absolute Neuts (auto) 3.8 Absolute Nucleated RBC 0.000 Nucleated RBC % (auto) 0.0 Anion Gap 18 Estim Creat Clear Calc 12.0 Estimated GFR 15 POC Glucose 67 Random Glucose TNP Fasting Glucose 86 Calcium 8.6 Iron TIBC % Saturation Unsat Iron Binding Ferritin Total Bilirubin 0.8 AST 23 ALT 31 Alkaline Phosphatase 73 Total Protein 6.6 Albumin 3.5 Urine Osmolality Ur Random Sodium Urine Creatinine Urine Microalbumin Microalb/Creat Ratio 03/14/22 03/14/22 08:33 09:31 MCV MCH MCHC RDW Plt Count MPV Immature Gran % (Auto) Neut % (Auto) Lymph % (Auto) [place] % (Auto) Eos % (Auto) Baso % (Auto) Lymph # (Auto) [place] # (Auto) Eos # (Auto) Baso # (Auto) Abs Immat Gran (auto) Absolute Neuts (auto) Absolute Nucleated RBC Nucleated RBC % (auto) Anion Gap Estim Creat Clear Calc Estimated GFR POC Glucose 128 H 141 H Random Glucose Fasting Glucose Calcium Iron TIBC % Saturation Unsat Iron Binding Ferritin Total Bilirubin AST ALT Alkaline Phosphatase Total Protein Albumin Urine Osmolality Ur Random Sodium Urine Creatinine Urine Microalbumin Microalb/Creat Ratio Microbiology Microbiology Results: Microbiology 03/11/22 15:36 Blood Culture - Final Blood - Venous Strep agalactiae (Grp B) 03/11/22 15:36 Blood Culture - Final Blood - Venous Strep agalactiae (Grp B) Assessment and Plan (1) Fever: Status: Acute (2) Type 2 diabetes mellitus: Status: Acute (3) Hypertension: Status: Acute Plan 81-year-old male with history of congestive heart failure/hypertension/diabetes status post strep bacteremia presents today with shortness of breath and fever. White count emergency room 18,000. 1. group B Streptococcus agalactiae bacteremia No recurrent fevers,no source of infection found UA benign chest x-ray normal, no skin lesion,(history of group B strep infection treated at [facility] initially with Zosyn and vanco ( finish course of amoxicillin last month) no source of infection was found at [facility] Case discussed with ID will change antibiotic to IV ceftriaxone, echocardiogram pending, repeat blood culture 2. Acute on chronic systolic heart failure - appears euvolemic , continue to hold Lasix, elevated BNP likely related to renal failure 3. Acute kidney injury Creatinine trending down, continue to hold diuretics , avoid nephrotoxic, renal ultrasound showed no acute renal abnormality. Being followed by Nephrology 4. Hypertension - stable blood pressure continue home medication 5. Diabetes type 2 - noted to have low blood sugar this morning will reduce dose of Lantus, and add snacks at bedtime, continue insulin sliding scale, recommend diabetic diet ,hold glyburide due to renal disease Full code Heparin will require ongoing hospitalization for IV antibiotics for bacteremia Quality Stroke Does the patient have a stroke diagnosis?: No VTE Prior VTE?: No VTE Risk Level:: Medical - moderate - high VTE Device Contraindication: Treatment Not Indicated VTE Drug Contraindication: N/A - Med Ordered
[2022-03-14 11:07] VITALS: BP 143/68; PULSE 65; RESP 17; TEMP 36.4; O2SAT 95
[2022-03-14 11:27] LABS: Glucose, Whole Blood 149 mg/dL (60-115)
--- NOTE | 2022-03-14 11:40 | PM.PNNEP ---
Subjective Subjective Date of Service: 03/14/22 Interval history: Noted to have low blood sugars this morning, since skipped snack last night but usually takes at home, and likely due to acute on ckd , otherwise denies fever chills, no new symptoms of shortness of breath, no urinary symptoms, no new rash or skin lesions, denies chest pain, no palpitation. Denies GI symptoms of nausea, vomiting, diarrhea Physical Exam Vital Signs: Vital Signs: Last Vital Signs Temp 97.6 F 03/14/22 11:07 Pulse 65 03/14/22 11:07 Resp 17 03/14/22 11:07 BP 143/68 H 03/14/22 11:07 Pulse Ox 95 03/14/22 11:07 O2 Del Method 03/14/22 11:07 O2 Flow Rate 3 03/14/22 07:28 Oxygen Flow Rate 3 03/11/22 15:07 BMI result Body Mass Index 26.5 Const: Other: General awake alert x3, in no acute distress.? Left eye subconjunctival hemorrhage Neck no JVD. CVS? regular rate rhythm, Respiratory lungs clear to auscultation, no respiratory distress, no wheeze, no rhonchi. Gastrointestinal abdomen soft, nontender, bowel sounds audible, no guarding , no rigidity. Extremities trace edema. Neuro nonfocal , speech clear. Skin no rash, few dry scabs with no surrounding redness lower extremities Psych appropriate affect General: cooperative HEENT: Head: Yes normal to inspection, Yes normocephalic and Yes atraumatic Ears: external ears normal General nose exam: Normal external nose present Face and sinus: Yes normal facial exam Mouth: Normal oral and palatal mucosa present Teeth and gingiva: dentition normal Throat: Yes posterior oropharynx normal Eyes: General: appearance normal, both eyes and all related structures Pupils: Equal, round and reactive pupils present Neck: Other: positive JVD Neck: Yes normal visual inspection, Yes no lymphadenopathy, Yes trachea midline and Yes supple Chest: Chest palpation & inspection: normal inspection of the chest and normal palpation of entire chest wall Resp: Other: clear but diminished bilaterally minimal crackles as compared to admit Effort & Inspection: normal respiratory effort and able to speak in complete sentences Cardio: Other: no S4; positive S1-S2; no S3 2/6 systolic murmur best heard at apex Rate: regular rate Rhythm: regular rhythm Heart sounds: S1 normal heart sound present, S2 normal heart sound present and no murmurs GI: Other: soft nontender nondistended normo Inspection: Yes normal to inspection Palpation (GI): Soft to palpation, nontender and no guarding Auscultation: normal bowel sounds : General: Yes no CVA tenderness Back/Spine/Pelvis: Back: no CVA tenderness Skin: General skin exam: no rashes or lesions noted Neuro: Other: cranial nerves 2-12 grossly intact as tested. Motor is 5/5 all extremities. Sensation intact. Cognition appropriate. Gait not visualized General: moves all extremities Cranial nerves: Yes CN's II-XII intact bilaterally and Yes Equal, round and reactive pupils present Cognition (Neuro): normal cognition Motor exam (neuro): 5/5 motor strength present throughout Extrem: Other: trace edema bilaterally General: Yes normal to inspection Psych: Appearance: grossly normal Speech and movement: Normal speech and movement present Affect: normal affect Attitude: cooperative Thought process: Normal thought process present Thought content: Normal thought content present Objective Data Labs CBC & Chem 7: 03/14/22 06:34 03/14/22 06:34 Labs: Laboratory Results - last 24 hr 03/13/22 03/13/22 03/13/22 11:34 12:02 13:08 WBC RBC Hgb Hct MCV MCH MCHC RDW Plt Count MPV Immature Gran % (Auto) Neut % (Auto) Lymph % (Auto) [place] % (Auto) Eos % (Auto) Baso % (Auto) Lymph # (Auto) [place] # (Auto) Eos # (Auto) Baso # (Auto) Abs Immat Gran (auto) Absolute Neuts (auto) Absolute Nucleated RBC Nucleated RBC % (auto) Sodium Potassium Chloride Carbon Dioxide Anion Gap BUN Creatinine Estim Creat Clear Calc Estimated GFR POC Glucose 170 H Random Glucose Fasting Glucose Calcium Iron 28 L TIBC 346 % Saturation 8 L Unsat Iron Binding 318 Ferritin 101 Total Bilirubin AST ALT Alkaline Phosphatase Total Protein Albumin Urine Osmolality Ur Random Sodium 94.0 Urine Creatinine 35.38 Urine Microalbumin 247.0 Microalb/Creat Ratio 698.1 03/13/22 03/13/22 03/13/22 13:08 18:43 20:09 WBC RBC Hgb Hct MCV MCH MCHC RDW Plt Count MPV Immature Gran % (Auto) Neut % (Auto) Lymph % (Auto) [place] % (Auto) Eos % (Auto) Baso % (Auto) Lymph # (Auto) [place] # (Auto) Eos # (Auto) Baso # (Auto) Abs Immat Gran (auto) Absolute Neuts (auto) Absolute Nucleated RBC Nucleated RBC % (auto) Sodium Potassium Chloride Carbon Dioxide Anion Gap BUN Creatinine Estim Creat Clear Calc Estimated GFR POC Glucose 283 H 402 H* Random Glucose Fasting Glucose Calcium Iron TIBC % Saturation Unsat Iron Binding Ferritin Total Bilirubin AST ALT Alkaline Phosphatase Total Protein Albumin Urine Osmolality 361 L Ur Random Sodium Urine Creatinine Urine Microalbumin Microalb/Creat Ratio 03/14/22 03/14/22 03/14/22 06:34 06:34 07:30 WBC 6.3 RBC 3.72 L Hgb 9.2 L Hct 30.3 L MCV 81.5 MCH 24.7 L MCHC 30.4 L RDW 14.8 Plt Count 168 MPV 9.0 L Immature Gran % (Auto) 0.3 Neut % (Auto) 60.4 Lymph % (Auto) 16.3 L [place] % (Auto) 9.5 Eos % (Auto) 12.7 H Baso % (Auto) 0.8 Lymph # (Auto) 1.0 L [place] # (Auto) 0.6 Eos # (Auto) 0.8 H Baso # (Auto) 0.1 Abs Immat Gran (auto) 0.02 Absolute Neuts (auto) 3.8 Absolute Nucleated RBC 0.000 Nucleated RBC % (auto) 0.0 Sodium 143 Potassium 4.7 Chloride 106 Carbon Dioxide 24 Anion Gap 18 BUN 65 H Creatinine 4.00 H* Estim Creat Clear Calc 12.0 Estimated GFR 15 POC Glucose 67 Random Glucose TNP Fasting Glucose 86 Calcium 8.6 Iron TIBC % Saturation Unsat Iron Binding Ferritin Total Bilirubin 0.8 AST 23 ALT 31 Alkaline Phosphatase 73 Total Protein 6.6 Albumin 3.5 Urine Osmolality Ur Random Sodium Urine Creatinine Urine Microalbumin Microalb/Creat Ratio 03/14/22 03/14/22 03/14/22 08:33 09:31 11:09 WBC RBC Hgb Hct MCV MCH MCHC RDW Plt Count MPV Immature Gran % (Auto) Neut % (Auto) Lymph % (Auto) [place] % (Auto) Eos % (Auto) Baso % (Auto) Lymph # (Auto) [place] # (Auto) Eos # (Auto) Baso # (Auto) Abs Immat Gran (auto) Absolute Neuts (auto) Absolute Nucleated RBC Nucleated RBC % (auto) Sodium Potassium Chloride Carbon Dioxide Anion Gap BUN Creatinine Estim Creat Clear Calc Estimated GFR POC Glucose 128 H 141 H 149 H Random Glucose Fasting Glucose Calcium Iron TIBC % Saturation Unsat Iron Binding Ferritin Total Bilirubin AST ALT Alkaline Phosphatase Total Protein Albumin Urine Osmolality Ur Random Sodium Urine Creatinine Urine Microalbumin Microalb/Creat Ratio Microbiology Microbiology Results: Microbiology 03/11/22 15:36 Blood - Venous Blood Culture - Final Strep agalactiae (Grp B) 03/11/22 15:36 Blood - Venous Blood Culture - Final Strep agalactiae (Grp B) Procedures Date of Service Date of Service: 03/14/22 Assessment & Plan Assessment and plan (1) Fever: Status: Acute (2) Type 2 diabetes mellitus: Status: Acute (3) Hypertension: Status: Acute Plan 81-year-old male with history of congestive heart failure/hypertension/diabetes status post strep bacteremia presents today with shortness of breath and fever. White count emergency room 18,000. 1. group B Streptococcus agalactiae bacteremia No recurrent fevers,no source of infection found UA benign chest x-ray normal, no skin lesion,(history of group B strep infection treated at [facility] initially with Zosyn and vanco ( finish course of amoxicillin last month) no source of infection was found at [facility] Case discussed with ID will change antibiotic to IV ceftriaxone, echocardiogram pending, repeat blood culture 2. Acute on chronic systolic heart failure - appears euvolemic , continue to hold Lasix, elevated BNP likely related to renal failure 3. Acute kidney injury Creatinine trending down, continue to hold diuretics , avoid nephrotoxic, renal ultrasound showed no acute renal abnormality. NO NEW SUGGESTIONS CAN RESUME DIURETIC NEEDED 4. Hypertension - stable blood pressure continue home medication 5. Diabetes type 2 - noted to have low blood sugar this morning will reduce dose of Lantus, and add snacks at bedtime, continue insulin sliding scale, recommend diabetic diet ,hold glyburide due to renal disease Time Spent With Patient Time: Total time spent is greater than 50% in coordination of care (as documented) at patient's floor/unit and/or counseling patient: Progress Note: Quality Stroke Does the patient have a stroke diagnosis?: No
[2022-03-14] MEDS: cefTRIAXone sodium 1 GM in 0.9 % Sodium Chloride 50 ML IV (12:05)
[2022-03-14 15:34] VITALS: BP 145/74; PULSE 64; RESP 20; TEMP 36.4; O2SAT 93
[2022-03-14 16:08] LABS: Glucose, Whole Blood 282 mg/dL (60-115)
[2022-03-14] MEDS: Insulin Lispro 100 UNIT/ML 3 ML VIAL SUBCUT ×2 (17:06→20:49)
[2022-03-14 19:32] VITALS: BP 143/77; PULSE 72; RESP 20; TEMP 36.4; O2SAT 89
[2022-03-14 20:32] LABS: Glucose, Whole Blood 320 mg/dL (60-115)
[2022-03-14] MEDS: Gabapentin 300 MG CAPSULE PO (20:48)
[2022-03-14] MEDS: Insulin Glargine,Hum.rec.anlog 100 UNIT/ML 10 ML VIAL 15 UNIT SUBCUT (20:49)
[2022-03-14] MEDS: Doxazosin Mesylate 2 MG TABLET 4 MG PO (20:49)
[2022-03-14 23:20] VITALS: BP 132/62; PULSE 70; RESP 20; TEMP 36.3; O2SAT 98
[2022-03-15 03:16] VITALS: BP 151/73; PULSE 65; RESP 20; TEMP 36.3; O2SAT 99
[2022-03-15 07:08] VITALS: BP 145/68; PULSE 63; RESP 16; TEMP 37; O2SAT 95
[2022-03-15 07:36] LABS: Glucose, Whole Blood 112 mg/dL (60-115)
[2022-03-15] MEDS: Fluticasone/Vilanterol 100/25 BLST.W.DEV 1 PUFF INHALE (07:45)
[2022-03-15 07:46] VITALS: PULSE 64; RESP 18; O2SAT 94
[2022-03-15] MEDS: Heparin Sodium,Porcine 5,000 UNIT/ML VIAL 5000 UNIT SUBCUT (09:12)
[2022-03-15] MEDS: Metoprolol Succinate ER 50 MG TAB.ER.24H PO (09:13)
[2022-03-15] MEDS: Montelukast Sodium 10 MG TABLET PO (09:13)
[2022-03-15] MEDS: 0.9 % Sodium Chloride Flush 3 ML SYRINGE IVFLUSH (09:13)
[2022-03-15] MEDS: Aspirin Enteric Coated 81 MG TABLET.DR PO (09:13)
[2022-03-15] MEDS: amLODIPine Besylate 2.5 MG TABLET PO (09:13)
[2022-03-15] MEDS: Atorvastatin Calcium 80 MG TABLET PO (09:13)
[2022-03-15] MEDS: cefTRIAXone sodium 1 GM in 0.9 % Sodium Chloride 50 ML IV (11:18)
[2022-03-15 11:21] LABS: Glucose, Whole Blood 164 mg/dL (60-115)
[2022-03-15 11:28] VITALS: BP 140/64; PULSE 64; RESP 20; TEMP 36.2; O2SAT 97
--- NOTE | 2022-03-15 12:03 | PM.PNCARD ---
Subjective Subjective Date of Service: 03/15/22 Interval history: Seen and examined at bedside. Echocardiography reviewed with the patient which is showing worsening ejection fraction. No obvious vegetation noticed on the heart valves. He grew streptococcal agalactiae which is the same organism he had in his blood when he got admitted to [facility] recently. Physical Exam Vital Signs: Last Vital Signs Temp 97.2 F 03/15/22 11:28 Pulse 64 03/15/22 11:28 Resp 20 03/15/22 11:28 BP 140/64 H 03/15/22 11:28 Pulse Ox 97 03/15/22 11:28 O2 Del Method 03/15/22 11:28 O2 Flow Rate 3 03/15/22 11:28 Oxygen Flow Rate 3 03/11/22 15:07 BMI result Body Mass Index 26.5 GENERAL APPEARANCE: in no acute distress, pleasant. Left eye subconjunctival hemorrhage NECK: no carotid bruit, mild jugular venous distention. SKIN: no suspicious lesions, warm and dry. HEART: Systolic murmur aortic area, regular rate and rhythm. LUNGS: clear to auscultation bilaterally. ABDOMEN: soft, nontender. EXTREMITIES: no edema. PERIPHERAL PULSES: equal. 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 He recently had Strept agalactae infection and was given antibiotics. He is again growing Streptococcus in his blood. He has bioprosthetic valve and there is clearly concern for endocarditis on him. Stress testing or echocardiogram did not show any obvious vegetation but did show that his ejection fraction is 25% from 35-40%. He has advanced CKD. There was discussion with his primary mobile disc jockey Dr. Pepe Junior previously who proposed to him to undergo a left and right heart catheterization because he had cardiomyopathy. At that time patient was reluctant due to some bad experiences that his had with cardiac catheterization. Once again we had a prolonged discussion including discussion with his daughter, Denia. I have explained to them about my concern for endocarditis in him. He also has subconjunctival hemorrhage which is sometimes seen with endocarditis too. 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 We are treating him as endocarditis. Whether TORIN should be done is a question and he needs to think about that. He is asking whether he can be transferred to [facility] so he can discuss with Dr. Junior about cardiac catheterization and may consider doing TORIN there. In my opinion he currently should be treated as endocarditis regardless of TORIN findings. I am arranging transfer to [facility]. Thank you for allowing me to participate in the care of your patient. Please feel free to contact me if you have any questions. Time Spent With Patient Time: Total time spent is greater than 50% in coordination of care (as documented) at patient's floor/unit and/or counseling patient: Progress Note: Quality Stroke Does the patient have a stroke diagnosis?: No Procedures Date of Service Date of Service: 03/15/22
[2022-03-15] MEDS: Insulin Lispro 100 UNIT/ML 3 ML VIAL SUBCUT (12:10)
--- NOTE | 2022-03-15 12:55 | P.DS_ITS ---
DS: Providers Provider Date of Service: 03/15/22 Date of admission: 03/11/22 18:31 Primary care physician: Antony Pappas MD Consults: 03/11/22 18:37 Consult to Cardiology Routine Consulting Provider: Benny Gamble Reason for consultation: CHF Has provider been notified: No 03/11/22 18:40 Consult to Nephrology Routine Consulting Provider: Missael Zuniga Reason for consultation: Acute on chronic disease Has provider been notified: No 03/12/22 08:03 Consult to Infectious Diseases Stat Consulting Provider: Unique Jaime Reason for consultation: gram-positive bacteremia Has provider been notified: Yes DS: Diagnosis Discharge Diagnosis (1) CHF (congestive heart failure): Status: Acute (2) Bacteremia: Status: Acute DS: Summary Hospital Course Hospital Course: History presenting illness Date of Service: 03/11/22 Chief Complaint:? shortness of? breath 81-year-old male who presents emergency department for evaluation of shortness of breath, subjective fever and chills.? Patient states that he had a gradual onset of shortness of breath that began around 11:00 hours this morning.? He states that shortness of breath got progressively worse.? He states that he had subjective fever and chills at home.? He denied chest pain.? He denied nausea, vomiting or abdominal pain.? He did have 2 episodes of loose diarrheal stool.? H e denied frequency, urgency or dysuria.? Patient states the shortness of breath got worse despite being on 2.5 L of oxygen via nasal cannula therefore called an ambulance and was brought to the emergency department.? On presentation he is on 3 L of nasal cannula his O2 saturation is 96%, patient had a temperature of a 100.2 degrees F with an elevated respiratory rate of 24. The patient was admitted to [facility] from 01/26/2022 until 01/30/2022 (approximately 6 weeks prior to evaluation).? In reviewing the records, the patient presented to [facility] with fever, fatigue, increased shortness of breath times 2-3 days.? The patient increased his Lasix from 20 mg 2 times a day to 40 mg 2 times a day with no relief his symptoms.? At [facility] he was found to have a fever of 103.2 degrees F..? The patient's blood cultures grew Streptococcus agalactiae, group B. the patient was initially treated with Zosyn and vancomycin and then changed to cefazolin.? He was discharged on a 12 day course of amoxicillin.? He was also discharged on oxygen.? Repeat blood cultures were negative, patient finished course of antibiotics at home. ER COurse Patient given? Tylenol for fever.? Chest x-ray hyperexpanded lungs without acute process Hospital course 81-year-old male with history of congestive heart failure/hypertension/diabetes status post strep bacteremia presents with shortness of breath and fever, White count 18,000, chest x-ray negative, UA benign, patient admitted to [facility] due to fever blood cultures x2 were sent that came back positive with group B Streptococcus agalactiae bacteremia, patient initially treated with IV Zosyn subsequently transitioned to IV ceftriaxone, patient had No recurrent fevers,no source of infection found no skin lesion, echocardiogram showed no vegetations (history of? group B strep infection treated at [facility] initially with Zosyn and vanco ( finish course of amoxicillin last month) no source of infection was found at [facility], since patient has recurrent bacteremia with high likelihood of endocarditis with history of prosthetic valve he is being transferred to [facility] for possible TORIN and cardiac catheterization due to decline in EF, he was recommended cardiac catheterization by his primary special agent fbi which he declined in the past but now wishing to pursue he will be continued on IV ceftriaxone for possible endocarditis, repeat blood culture from this morning are pending. ? Acute on chronic systolic heart failure at present appears euvolemic, Lasix on hold elevated BNP likely related to renal failure, echocardiogram showed EF 25% dropped from a recent EF of 35-40% his primary special agent fbi recommended cardiac catheterization for his cardiomyopathy at that time patient declined the procedure but at present willing to undergo further testing therefore being transferred to [facility]. Acute kidney injury creatinine remains elevated but gradually trending down, renal ultrasound showed no acute abnormality, avoid nephrotoxins follow BMP ? Hypertension stable blood pressure continue home medication Diabetes type 2 noted to have low blood sugars likely related to renal failure dose of Lantus has been reduced continue insulin sliding scale and diabetic, glyburide held due to renal disease. Time Spent with Patient Time attestation: Total time spent providing and/or coordinating discharge services: Discharge coordination time: Greater than 30 minutes Quality: Safe Use of Opioids Does Pt have an Active Cancer Diagnosis on the Problem List?: No Quality: Stroke Does the patient have a stroke diagnosis?: No Physical Exam Vital Signs: Vital Signs: Last Vital Signs Temp 97.2 F 03/15/22 11:28 Pulse 64 03/15/22 11:28 Resp 20 03/15/22 11:28 BP 140/64 H 03/15/22 11:28 Pulse Ox 97 03/15/22 11:28 O2 Del Method 03/15/22 11:28 O2 Flow Rate 3 03/15/22 11:28 Oxygen Flow Rate 3 03/11/22 15:07 BMI result Body Mass Index 26.5 Const: Other: General awake aler t x3, in no acute distress.? Left ey e subconjunctival hemorrhage Neck no JVD. CVS? regular rate rhythm, Resp iratory lungs miquel r to auscultation, no respiratory di stress, no wheeze, no rhonchi. Gastr ointestinal abdome n soft, nontender, bowel sounds xavier ble, no guarding , no rigidity. Extr emities trace irma a. Neuro nonfocal , speech clear. Sk in no rash, few dr y scabs with no quiñonez rrounding redness lower extremities Psych appropriate affect DS: Data Data Completed and Pending Labs on day of discharge: Laboratory Results - last 24 hr 03/14/22 03/14/22 03/15/22 16:04 20:26 07:10 POC Glucose 282 H 320 H 112 03/15/22 11:15 POC Glucose 164 H Discharge Plan Discharge Patient Disposition: Xfer Acute Care Hospital Discharge Diagnosis: Streptococcus bacteremia Referrals: Antony Pappas MD [Primary Care Provider] - 1 Week Discharge Medications: New ceftriaxone 1 gram Recon Soln 1 g IV Q24H Qty: 10 0RF Continued terazosin 5 mg capsule 1 cap PO BEDTIME fluticasone propion-salmeterol [Advair Diskus] 250-50 mcg/dose blister with device 1 puff inhalation BID atorvastatin 80 mg tablet 1 tab PO DAILY metoprolol succinate 50 mg tablet extended release 24 hr 1 tab PO DAILY amlodipine 2.5 mg tablet 1 tab PO DAILY aspirin 81 mg Tablet,Delayed Release (Dr/Ec) 81 mg PO DAILY gabapentin 300 mg capsule 1 cap PO BEDTIME montelukast 10 mg tablet 1 tab PO DAILY ergocalciferol (vitamin D2) 1,250 mcg (50,000 unit) capsule 1 cap PO MO albuterol sulfate 90 mcg/actuation HFA aerosol inhaler 2 puff PO Q6H PRN (Reason: wheezing) Discontinued glipizide 10 mg tablet 1 tab PO BID Novolin N NPH U-100 Insulin 100 unit/mL suspension 18 unit subcut DAILY Novolin N NPH U-100 Insulin 100 unit/mL suspension 9 unit subcut BEDTIME furosemide 20 mg tablet 2 tab PO DAILY furosemide 20 mg tablet 20 mg PO DAILY@1700 Discharge Orders: Discharge Order (Routine); Ordered 03/15/22 Ordered By: Yamil Houston Diet: Low fat, low cholesterol Activity on Discharge: As tolerated Stand Alone Forms: Patient Portal Discharge page Care Plan Goals: Streptococcus bacteremia continue IV ceftriaxone, repeat blood culture from 03/15 pending, transthoracic echo showed no vegetation, needs to be evaluated by Cardiology for cardiac catheterization due to worsening EF and evaluation for vegetation Acute on chronic kidney disease appears euvolemic Lasix on hold, renal ultrasound showed no obstruction Health Concerns: Diabetes mellitus/coronary artery disease continue home medications as needed Plan of Treatment: Transferred to [facility] for cardiac catheterization Assessment: As per discharge summary
--- NOTE | 2022-03-15 20:09 | PM.PNNEP ---
Subjective Subjective Date of Service: 03/15/22 Interval history: Noted to have low blood sugars this morning, since skipped snack last night but usually takes at home, and likely due to acute on ckd , otherwise denies fever chills, no new symptoms of shortness of breath, no urinary symptoms, no new rash or skin lesions, denies chest pain, no palpitation. Denies GI symptoms of nausea, vomiting, diarrhea Physical Exam Vital Signs: Vital Signs: Last Vital Signs Temp 97.2 F 03/15/22 11:28 Pulse 64 03/15/22 11:28 Resp 20 03/15/22 11:28 BP 140/64 H 03/15/22 11:28 Pulse Ox 97 03/15/22 11:28 O2 Del Method 03/15/22 11:28 O2 Flow Rate 3 03/15/22 11:28 Oxygen Flow Rate 3 03/11/22 15:07 BMI result Body Mass Index 26.5 Const: Other: General awake aler t x3, in no acute distress.? Left ey e subconjunctival hemorrhage Neck no JVD. CVS? regular rate rhythm, Resp iratory lungs miquel r to auscultation, no respiratory di stress, no wheeze, no rhonchi. Gastr ointestinal abdome n soft, nontender, bowel sounds xavier ble, no guarding , no rigidity. Extr emities trace irma a. Neuro nonfocal , speech clear. Sk in no rash, few dr y scabs with no quiñonez rrounding redness lower extremities Psych appropriate affect General: cooperative HEENT: Head: Yes normal to inspection, Yes normocephalic and Yes atraumatic Ears: external ears normal General nose exam: Normal external nose present Face and sinus: Yes normal facial exam Mouth: Normal oral and palatal mucosa present Teeth and gingiva: dentition normal Throat: Yes posterior oropharynx normal Eyes: General: appearance normal, both eyes and all related structures Pupils: Equal, round and reactive pupils present Neck: Other: positive JVD Neck: Yes normal visual inspection, Yes no lymphadenopathy, Yes trachea midline and Yes supple Chest: Chest palpation & inspection: normal inspection of the chest and normal palpation of entire chest wall Resp: Other: clear but diminished bilaterally minimal crackles as compared to admit Effort & Inspection: normal respiratory effort and able to speak in complete sentences Cardio: Other: no S4; positive S1-S2; no S3 2/6 systolic murmur best heard at apex Rate: regular rate Rhythm: regular rhythm Heart sounds: S1 normal heart sound present, S2 normal heart sound present and no murmurs GI: Other: soft nontender nondistended normo Inspection: Yes normal to inspection Palpation (GI): Soft to palpation, nontender and no guarding Auscultation: normal bowel sounds : General: Yes no CVA tenderness Back/Spine/Pelvis: Back: no CVA tenderness Skin: General skin exam: no rashes or lesions noted Neuro: Other: cranial nerves 2-12 grossly intact as tested. Motor is 5/5 all extremities. Sensation intact. Cognition appropriate. Gait not visualized General: moves all extremities Cranial nerves: Yes CN's II-XII intact bilaterally and Yes Equal, round and reactive pupils present Cognition (Neuro): normal cognition Motor exam (neuro): 5/5 motor strength present throughout Extrem: Other: trace edema bilaterally General: Yes normal to inspection Psych: Appearance: grossly normal Speech and movement: Normal speech and movement present Affect: normal affect Attitude: cooperative Thought process: Normal thought process present Thought content: Normal thought content present Objective Data Labs CBC & Chem 7: 03/14/22 06:34 03/14/22 06:34 Labs: Laboratory Results - last 24 hr 03/14/22 03/15/22 03/15/22 20:26 07:10 11:15 POC Glucose 320 H 112 164 H Microbiology Microbiology Results: Microbiology 03/11/22 15:36 Blood - Venous Blood Culture - Final Strep agalactiae (Grp B) 03/11/22 15:36 Blood - Venous Blood Culture - Final Strep agalactiae (Grp B) Procedures Date of Service Date of Service: 03/15/22 Assessment & Plan Assessment and plan (1) CHF (congestive heart failure): Status: Acute (2) Bacteremia: Status: Acute (3) KAILEY (acute kidney injury): Status: Acute Assessment and Plan: Creatinine trending down, continue to hold diuretics , avoid nephrotoxic, renal ultrasound showed no acute renal abnormality. proteinuria c/w DM nephropathy NO NEW SUGGESTIONS CAN RESUME DIURETIC NEEDED (4) CKD (chronic kidney disease) stage 3, GFR 30-59 ml/min: Status: Acute Plan 81-year-old gentleman with previous aortic valve replacement and single-vessel bypass surgery who is presenting with shortness of breath fevers and chills. He recently had Strept agalactae infection and was given antibiotics. He is again growing Streptococcus in his blood. He has bioprosthetic valve . Time Spent With Patient Time: Total time spent is greater than 50% in coordination of care (as documented) at patient's floor/unit and/or counseling patient: Progress Note: Quality Stroke Does the patient have a stroke diagnosis?: No
== END 2022-03-15 16:33 | disposition short-term general hospital (02) | DRG 291 ==
LOC: HO.ED 17:12 → HO.EDOVER 18:52 → HO.IMC 03-13 16:33
PROVIDERS: Internal Medicine Nephrology; Admitting Provider Hospitalist; Emergency Provider Emergency Medicine Emergency Medical Services; PCP Internal Medicine; Visit Provider Hospitalist
DX: I13.0 Hypertensive heart and chronic kidney disease with heart failure and stage 1 through stage 4 chronic kidney disease, or unspecified chronic kidney disease (principal); I50.23 Acute on chronic systolic (congestive) heart failure; N17.9 Acute kidney failure, unspecified; E11.22 Type 2 diabetes mellitus with diabetic chronic kidney disease; N18.9 Chronic kidney disease, unspecified; E87.5 Hyperkalemia; J44.9 Chronic obstructive pulmonary disease, unspecified; R78.81 Bacteremia; B95.1 Streptococcus, group B, as the cause of diseases classified elsewhere; Z95.2 Presence of prosthetic heart valve; Z20.822 Contact with and (suspected) exposure to COVID-19; Z79.51 Long term (current) use of inhaled steroids; Z79.82 Long term (current) use of aspirin; Z79.899 Other long term (current) drug therapy
CPT/HCPCS: 36415; 71045; 76775; 80048; 80053; 81001; 81003; 82043; 82728; 82947; 83540; 83605; 83690; 83880; 83935; 84300; 84484; 85025; 85610; 85730; 87040; 87147; 87186; 87205; 87635; 93005; 93306; 94640; 96365; 96375; 99285; J0696; J1940; J2543; Q9957

== ENCOUNTER 2023-04-21 09:03 | Emergency (ER) | payer MEDICARE, SELFPAY ==
[2023-04-21 09:09] VITALS: BP 144/71; PULSE 80; RESP 16; TEMP 37; O2SAT 97; BMI 24.8
--- NOTE | 2023-04-21 09:51 | ED_ITS ---
HPI - Nausea/Vomiting/Diarrhea General Chief complaint: Nausea/Vomiting/Diarrhea Stated complaint: Diarrhea Unable To Urinate Time Seen by Provider: 04/21/23 09:32 Source: patient and old records reviewed Mode of arrival: ambulatory Limitations: no limitations History of Present Illness HPI Narrative: 82 yo male with history of CKD, HTN, DM, hx Group B Strep bacteremia January 2022 who presents to the ER for evaluation of diarrhea for the last 5 days. He states it started on the night of 04/17, loose watery stool. He did not have any on Wednesday because he did not eat. When he ate on Wednesday and Wednesday he had 2 episodes of nonbloody, watery diarrhea each day. No associated abdominal pain, nausea, fever, chills, urinary symtptoms. No known sick contacts. No BM yet today. He has not eaten yet today. MD elicited complaint: diarrhea Onset (ago): day(s) (5) Description of diarrhea: watery Associated nausea: No Associated abdominal pain: No Location of pain: none Exacerbating factors: eating Relieving factors: none Associated symptoms: denies other symptoms Related Data Home Medications Medication Instructions Recorded Confirmed albuterol sulfate 90 mcg/actuation 2 puff PO Q6H PRN wheezing 03/11/22 03/11/22 aerosol inhaler amlodipine 2.5 mg tablet 1 tab PO DAILY 03/11/22 03/11/22 aspirin 81 mg tablet,delayed 81 mg PO DAILY 03/11/22 03/11/22 release atorvastatin 80 mg tablet 1 tab PO DAILY 03/11/22 03/11/22 ergocalciferol (vitamin D2) 1,250 1 cap PO MO 03/11/22 03/11/22 mcg (50,000 unit) capsule fluticasone 250 mcg-salmeterol 50 1 puff inhalation BID 03/11/22 03/11/22 mcg/dose blistr powdr for inhalation (Advair Diskus) gabapentin 300 mg capsule 1 cap PO BEDTIME 03/11/22 03/11/22 metoprolol succinate 50 mg 1 tab PO DAILY 03/11/22 03/11/22 tablet,extended release 24 hr montelukast 10 mg tablet 1 tab PO DAILY 03/11/22 03/11/22 terazosin 5 mg capsule 1 cap PO BEDTIME 03/11/22 03/11/22 Previous Rx's Medication Instructions Recorded ceftriaxone 1 gram solution for 1 g IV Q24H #10 ea 03/15/22 injection Allergies Allergy/AdvReac Type Severity Reaction Status Date / Time No Known Allergies Allergy Verified 03/11/22 15:12 Review of Systems 2 Review of Systems: Yes all other systems are reviewed and are negative Gastrointestinal: Gastrointestinal: Denies nausea PMFSH Past Medical History Medical History Asthma CHF (congestive heart failure) COPD (chronic obstructive pulmonary disease) Diabetes Hypertension Social History Social History Household Members: None Housing: Apartment Alcohol intake: current Alcohol intake frequency: holidays/special occasions only Alcohol type: beer Patient Tobacco Use Status: Former Tobacco user Smoked in Last 30 Days: No Use of substances other than those prescribed or required for medical reasons: No Advance Directives: Yes Advance Directives on File: Yes Advance Directives Date on File: 03/13/22 service: No Current occupational status: retired Physical Exam 2 Vital Signs: Vital Signs: Last Vital Signs Temp 97.7 F 04/21/23 12:07 Pulse 66 04/21/23 12:07 Resp 14 04/21/23 12:07 BP 176/73 H 04/21/23 12:07 Pulse Ox 98 04/21/23 12:07 O2 Del Method Room Air 04/21/23 12:07 BMI result Body Mass Index 24.8 Appearance: Alert. Oriented X3. No acute distress. Head: normocephalic, atraumatic. Eyes: Pupils equal, round and reactive to light. ENT: Pharynx normal. No tonsillar swelling or exudate. Neck: Normal inspection. Neck supple. CVS: Normal heart rate and rhythm. Pulses normal. Respiratory: No respiratory distress. Breath sounds normal. Abdomen: Soft and nontender. +BS x4 Skin: Skin warm and dry. Normal skin color. Normal skin turgor. No rashes. Extremities: No lower extremity edema. No joint swelling. Neuro/psych: Oriented X 3. No motor deficit. No sensory deficit. CN II-XII intact. Normal speech and cognition. Medications Administered Discontinued Medications Generic Name Dose Route Start Last Admin Trade Name Freq PRN Reason Stop Dose Admin Sodium Chloride 1,000 mls @ 999 mls/hr 04/21/23 10:00 04/21/23 12:15 Ns IVCONT 04/21/23 11:00 Infused .Q1H1M LESLI Infusion Medical Decision Making Medical Decision Making [facility] Narrative: 82 yo male presenting with diarrhea x5 days. No abd pain. Abd exam is benign. No BM yet today and only had 2 episodes each day the last 2 days. CDiff and GI panel ordered Labs showing mild leukocytosis, WBC 11. CKD at baseline. otherwise no signficant abnormality. 1:50 - patient has been observed in the ER for 4 hours. He tolerated a sandwich. He has not had any diarrhea or bowel movements at all today. He has no abdominal pain. At this time, comfortable discharge home without obtaining stool studies. We discussed symptomatic management of likely viral gastroenteritis. We also discussed return precautions. Stable for discharge home Differential Diagnosis Differential Diagnoses: The differential diagnosis associated with the presentation includes Viral gastroenteritis, bacterial gastroenteritis, C diff, dehydration, electrolyte abnormality, KAILEY on CKD Admission/Observation Consideration of admission/observation: Escalation of care including admission/observation considered elderly male w/ 5 days of diarrhea, considered admission on arrival Lab Data [facility] Lab Attestation statement: I reviewed the patient's lab results. Mild leukocytosis, CKD at baseline, hyperglycemia without anion gap 04/21/23 10:20 04/21/23 10:20 Labs: Lab Results 04/21/23 04/21/23 Range/Units 10:20 11:27 WBC 11.0 H (4.8-10.8) X10*3/uL RBC 5.05 D (4.60-5.80) X10*6/uL Hgb 14.4 D (14.0-18.0) g/dl Hct 42.1 D (42.0-52.0) % MCV 83.4 (80.0-98.0) fL MCH 28.5 (27.0-33.0) pg MCHC 34.2 (31.0-36.0) g/dl RDW 14.6 (11.0-16.0) % Plt Count 180 (160-400) X10*3/uL MPV 8.2 L (9.4-12.4) fL Immature Gran % (Auto) 0.6 H (0.0-0.4) % Neut % (Auto) 76.8 H (45-73) % Lymph % (Auto) 11.1 L (20-40) % [place] % (Auto) 7.8 (2-11) % Eos % (Auto) 3.2 (0-4) % Baso % (Auto) 0.5 (0-2) % Lymph # (Auto) 1.2 (1.2-4.9) X10*3/uL [place] # (Auto) 0.9 (0.1-1.2) X10*3/uL Eos # (Auto) 0.4 (0.0-0.4) X10*3/uL Baso # (Auto) 0.1 (0.0-0.2) X10*3/uL Abs Immat Gran (auto) 0.07 H (0.00-0.03) X10*3/uL Absolute Neuts (auto) 8.5 H (2.0-8.3) x10*3/uL Absolute Nucleated RBC 0.000 (0.0-0.012) X10*3/uL Nucleated RBC % (auto) 0.0 (0.0-0.2) /100WBC Sodium 137 (135-145) mmol/L Potassium 4.5 (3.3-5.1) mmol/L Chloride 104 (96-108) mmol/L Carbon Dioxide 23 (22-29) mmol/L Anion Gap 15 (12-20) BUN 59 H (9-16) mg/dL Creatinine 3.60 H (0.5-1.4) mg/dL Estim Creat Clear Calc 13.1 Estimated GFR 16 Random Glucose 318 H (60-115) mg/dL Calcium 9.5 D (8.4-10.2) mg/dL Magnesium 2.3 (1.6-2.6) mg/dL Total Bilirubin 0.8 (0.0-1.0) mg/dL Direct Bilirubin 0.3 (0.0-0.5) mg/dL AST 20 (5-37) U/L ALT 22 (0-40) U/L Alkaline Phosphatase 101 (39-117) U/L Total Protein 7.8 (6.5-8.0) g/dL Albumin 3.9 (3.5-5.0) g/dL Lipase 118 H (8-78) U/L Urine Color Yellow Urine Appearance Clear Urine pH 5.0 (5.0-9.0) Ur Specific [place] 1.020 (1.005-1.025) Urine Protein 100 (2+) H (Neg-Trace) mg/dL Urine Glucose (UA) >=1000 H (Negative) mg/dL Urine Ketones Negative (Negative) mg/dL Urine Blood Small (1+) H (Negative) Urine Nitrite Negative (Negative) Ur Leukocyte Esterase Small (1+) H (Negative) Urine RBC 0-2 (0-2) /HPF Urine WBC 21-50 H (0-5) /HPF Ur Squamous Epith Cells 3-5 (0-2) /HPF Urine Bacteria Trace (None Seen) Hyaline Casts 3-5 (0-2) /LPF External Record Review External record reviewed: Outpatient record, Prior outpatient labs and Prior outpatient radiology Tests considered The following testing was considered but not selected: CT scan of the abdomen considered however is abdominal exam is benign and he has no pain Prescription Management I considered prescription management with: Other (Antidiarrheal) Chronic Conditions Patient?s care impacted by: Diabetes and Other (CKD) Critical Care Time Critical Care Time Critical Care Time: No Discharge Plan Discharge Clinical Impression: Gastroenteritis Patient Disposition: Home, Self-Care Instructions: Gastroenteritis (DC), Acute Diarrhea (ED) Additional Instructions: You lab workup today was unremarkable. You most likely have a viral GI bug also known as gastroenteritis. Treatment is supportive care, symptoms usually resolve on their own in 48-72 hours. Recommend rest and plenty of oral hydration. Stick to a bland diet like soup and toast while you are not feeling well. Recommend over the counter Pepto Bismol or Imodium for upset stomach and diarrhea. Follow up with your doctor as needed. If you develop new or worsening symptoms call 911 or come back to the ER for further evaluation. Prescriptions: No Action terazosin 5 mg capsule 1 cap PO BEDTIME fluticasone propion-salmeterol [Advair Diskus] 250-50 mcg/dose blister with device 1 puff inhalation BID atorvastatin 80 mg tablet 1 tab PO DAILY metoprolol succinate 50 mg tablet extended release 24 hr 1 tab PO DAILY amlodipine 2.5 mg tablet 1 tab PO DAILY aspirin 81 mg Tablet,Delayed Release (Dr/Ec) 81 mg PO DAILY gabapentin 300 mg capsule 1 cap PO BEDTIME montelukast 10 mg tablet 1 tab PO DAILY ergocalciferol (vitamin D2) 1,250 mcg (50,000 unit) capsule 1 cap PO MO albuterol sulfate 90 mcg/actuation HFA aerosol inhaler 2 puff PO Q6H PRN (Reason: wheezing) ceftriaxone 1 gram Recon Soln 1 g IV Q24H Qty: 10 0RF Referrals: Antony Pappas MD [Primary Care Provider] -
[2023-04-21 10:14] VITALS: BP 160/65; PULSE 60; RESP 18; TEMP 36.6; O2SAT 98
[2023-04-21 10:24] LABS: MANUAL DIFF FLAG NO
[2023-04-21 10:27] LABS: Basophils Absolute Auto 0.1 X10*3/uL (0.0-0.2); Basophils Percent Auto 0.5 % (0-2); Eosinophils Absolute Auto 0.4 X10*3/uL (0.0-0.4); Eosinophils Percent Auto 3.2 % (0-4); Hematocrit 42.1 % (42.0-52.0); Hemoglobin 14.4 g/dl (14.0-18.0); Imm Gran Abs Auto 0.07 X10*3/uL (0.00-0.03); Imm Gran Pct Auto 0.6 % (0.0-0.4); Lymphocytes Absolute Auto 1.2 X10*3/uL (1.2-4.9); Lymphocytes Percent Auto 11.1 % (20-40); Mean Corpuscular HGB Conc 34.2 g/dl (31.0-36.0); Mean Corpuscular Hemoglobin 28.5 pg (27.0-33.0); Mean Corpuscular Volume 83.4 fL (80.0-98.0); Mean Platelet Volume 8.2 fL (9.4-12.4); Monocytes Absolute Auto 0.9 X10*3/uL (0.1-1.2); Monocytes Percent Auto 7.8 % (2-11); Neutrophils Absolute Auto 8.5 x10*3/uL (2.0-8.3); Neutrophils Percent Auto 76.8 % (45-73); Platelet Count 180 X10*3/uL (160-400); Red Blood Count 5.05 X10*6/uL (4.60-5.80); Red Cell Distribution Width 14.6 % (11.0-16.0)
[2023-04-21 10:42] LABS: Alanine Aminotransferase 22 U/L (0-40); Albumin Level 3.9 g/dL (3.5-5.0); Alkaline Phosphatase 101 U/L (39-117); Anion Gap 15 (12-20); Aspartate Amino Transferase 20 U/L (5-37); Bilirubin Direct 0.3 mg/dL (0.0-0.5); Bilirubin Total 0.8 mg/dL (0.0-1.0); Blood Urea Nitrogen 59 mg/dL (9-16); Calcium 9.5 mg/dL (8.4-10.2); Carbon Dioxide 23 mmol/L (22-29); Chloride 104 mmol/L (96-108); Creatinine Clr Calc Pharmacy 13.1; Estimated Glomerular Filt Rate 16; Glucose Random 318 mg/dL (60-115); Lipase 118 U/L (8-78); Magnesium 2.3 mg/dL (1.6-2.6); Potassium 4.5 mmol/L (3.3-5.1); Sodium 137 mmol/L (135-145); Total Protein 7.8 g/dL (6.5-8.0)
[2023-04-21] MEDS: 0.9 % Sodium Chloride 1,000 ML 999 ML IVCONT (11:07)
[2023-04-21 11:43] LABS: Appearance Urine Clear; Color Urine Yellow; Glucose Urine UA >=1000 mg/dL (Negative); Leukocyte Esterase Urine Small (1+) (Negative); Nitrite Urine Negative (Negative); UMIC TRIGGER UACC YES; Urine Blood Small (1+) (Negative); Urine Ketones Negative (Negative); Urine Protein 100 (2+) mg/dL (Neg-Trace)
[2023-04-21 11:52] LABS: Bacteria Urine Trace (None Seen); RBC Urine 0-2 /HPF (0-2); UACC Culture Trigger YES; WBC Urine 21-50 /HPF (0-5)
[2023-04-21 12:07] VITALS: BP 176/73; PULSE 66; RESP 14; TEMP 36.5; O2SAT 98
--- NOTE | 2023-04-21 13:20 | PC.NURSE ---
PT STATES THAT HE DID NOT TAKE HIS B/P MEDS TODAY.
== END 2023-04-21 13:59 | disposition home or self-care (01) ==
PROVIDERS: Physician Assistant; Emergency Provider Emergency Medicine; PCP Internal Medicine
DX: K52.9 Noninfective gastroenteritis and colitis, unspecified (principal); R11.2 Nausea with vomiting, unspecified; R33.9 Retention of urine, unspecified; Z79.899 Other long term (current) drug therapy; Z87.891 Personal history of nicotine dependence
CPT/HCPCS: 36415; 80048; 80076; 81001; 83690; 83735; 85025; 87086; 87088; 87186; 99284; 99285

== ENCOUNTER 2023-07-13 09:01 | Emergency (ER) | payer MEDICARE, SELFPAY ==
[2023-07-13 09:23] VITALS: BP 146/90; PULSE 71; RESP 16; TEMP 36.4; O2SAT 95; BMI 26.0
[2023-07-13 10:01] LABS: MANUAL DIFF FLAG NO
[2023-07-13 10:04] LABS: Appearance Urine Cloudy; Basophils Percent Auto 0.3 % (0-2); Color Urine Yellow; Eosinophils Absolute Auto 0.5 X10*3/uL (0.0-0.4); Eosinophils Percent Auto 3.3 % (0-4); Glucose Urine UA >=1000 mg/dL (Negative); Hematocrit 36.3 % (42.0-52.0); Hemoglobin 12.2 g/dl (14.0-18.0); Imm Gran Abs Auto 0.14 X10*3/uL (0.00-0.03); Leukocyte Esterase Urine Moderate (2+) (Negative); Lymphocytes Absolute Auto 1.4 X10*3/uL (1.2-4.9); Lymphocytes Percent Auto 9.7 % (20-40); Mean Corpuscular HGB Conc 33.6 g/dl (31.0-36.0); Mean Corpuscular Hemoglobin 28.3 pg (27.0-33.0); Mean Corpuscular Volume 84.2 fL (80.0-98.0); Mean Platelet Volume 8.1 fL (9.4-12.4); Monocytes Absolute Auto 0.9 X10*3/uL (0.1-1.2); Monocytes Percent Auto 6.5 % (2-11); Neutrophils Absolute Auto 11.4 x10*3/uL (2.0-8.3); Neutrophils Percent Auto 79.2 % (45-73); Nitrite Urine Negative (Negative); Platelet Count 219 X10*3/uL (160-400); Red Blood Count 4.31 X10*6/uL (4.60-5.80); Red Cell Distribution Width 15.2 % (11.0-16.0); UMIC TRIGGER UACC YES; Urine Blood Small (1+) (Negative); Urine Ketones Negative (Negative); Urine Protein 100 (2+) mg/dL (Neg-Trace); White Blood Count 14.4 X10*3/uL (4.8-10.8)
[2023-07-13 10:17] LABS: Bacteria Urine 1+ (None Seen); Hyaline Casts Urine 0-2 /LPF (0-2); Squamous Epithelial Cell Urine 0-2 /HPF (0-2); UACC Culture Trigger YES; WBC Urine >50 /HPF (0-5)
[2023-07-13 10:20] LABS: Alanine Aminotransferase 14 U/L (0-40); Albumin Level 3.6 g/dL (3.5-5.0); Alkaline Phosphatase 120 U/L (39-117); Anion Gap 15 (12-20); Aspartate Amino Transferase 13 U/L (5-37); Bilirubin Total 0.7 mg/dL (0.0-1.0); Blood Urea Nitrogen 34 mg/dL (9-16); Carbon Dioxide 26 mmol/L (22-29); Chloride 103 mmol/L (96-108); Creatinine Clr Calc Pharmacy 16.9; Estimated Glomerular Filt Rate 22; Glucose Random 308 mg/dL (60-115); Potassium 3.9 mmol/L (3.3-5.1); Sodium 140 mmol/L (135-145); Total Protein 7.3 g/dL (6.5-8.0)
--- NOTE | 2023-07-13 12:11 | ED_ITS ---
HPI - Male Genitourinary General Chief complaint: Urogenital-Male Stated complaint: unable to urinate Time Seen by Provider: 07/13/23 10:42 Source: patient Mode of arrival: ambulatory Limitations: no limitations History of Present Illness HPI Narrative: Months of dysuria, inabitlity to urinate, hematuria, decreased urine output Complaint: dysuria Onset (ago): month(s) Duration: progressively worsening Related Data Home Medications Medication Instructions Recorded Confirmed albuterol sulfate 90 mcg/actuation 2 puff PO Q6H PRN wheezing 03/11/22 03/11/22 aerosol inhaler amlodipine 2.5 mg tablet 1 tab PO DAILY 03/11/22 03/11/22 aspirin 81 mg tablet,delayed 81 mg PO DAILY 03/11/22 03/11/22 release atorvastatin 80 mg tablet 1 tab PO DAILY 03/11/22 03/11/22 ergocalciferol (vitamin D2) 1,250 1 cap PO MO 03/11/22 03/11/22 mcg (50,000 unit) capsule fluticasone 250 mcg-salmeterol 50 1 puff inhalation BID 03/11/22 03/11/22 mcg/dose blistr powdr for inhalation (Advair Diskus) gabapentin 300 mg capsule 1 cap PO BEDTIME 03/11/22 03/11/22 metoprolol succinate 50 mg 1 tab PO DAILY 03/11/22 03/11/22 tablet,extended release 24 hr montelukast 10 mg tablet 1 tab PO DAILY 03/11/22 03/11/22 terazosin 5 mg capsule 1 cap PO BEDTIME 03/11/22 03/11/22 Previous Rx's Medication Instructions Recorded ceftriaxone 1 gram solution for 1 g IV Q24H #10 ea 03/15/22 injection cephalexin 500 mg capsule 500 mg PO Q6H 10 days #40 caps 07/13/23 tamsulosin 0.4 mg capsule (Flomax) 0.4 mg PO BEDTIME #30 caps 07/13/23 Allergies Allergy/AdvReac Type Severity Reaction Status Date / Time No Known Allergies Allergy Verified 03/11/22 15:12 Review of Systems 2 Review of Systems: Yes all other systems are reviewed and are negative Neurologic: Denies Sensory deficit (Neuro) PMFSH Past Medical History Medical History Type 2 diabetes mellitus CHF (congestive heart failure) Hypertension Diabetes Asthma COPD (chronic obstructive pulmonary disease) CHF (congestive heart failure) Social History Social History Household Members: None Housing: Apartment Alcohol intake: current Alcohol intake frequency: holidays/special occasions only Alcohol type: beer Patient Tobacco Use Status: Former Tobacco user Advance Directives: Yes Advance Directives on File: Yes Advance Directives Date on File: 03/13/22 service: No Current occupational status: retired Physical Exam 2 Vital Signs: Vital Signs: Last Vital Signs Temp 97.5 F 07/13/23 09:23 Pulse 71 07/13/23 09:23 Resp 16 07/13/23 09:23 BP 146/90 H 07/13/23 09:23 Pulse Ox 95 07/13/23 09:23 O2 Del Method Room Air 07/13/23 09:23 BMI result Body Mass Index 26.0 Const: General: healthy appearing Nutritional Appearance: average body habitus Orientation/consciousness: oriented to person and patient oriented x3 Limitations: no limitations HEENT: Head: Yes normal to inspection Ears: external ears normal General nose exam: Normal external nose present Mouth: Normal oral and palatal mucosa present and oropharynx normal Throat: Yes posterior oropharynx normal Eyes: General: appearance normal, both eyes and all related structures Neck: Other: supple Neck: Yes normal visual inspection Chest: Chest palpation & inspection: normal inspection of the chest Resp: Auscultation: clear to auscultation bilaterally Cardio: Jugular venous distension: no JVD Rate: regular rate Rhythm: r egular rhythm Heart sounds: S1 normal heart sound present and S2 normal heart sound present GI: Inspection: Yes normal to inspection Palpation (GI): Soft to palpation, nontender and No hepatosplenomegaly present Auscultation: normal bowel sounds : General: Yes no CVA tenderness Back/Spine/Pelvis: Back: no CVA tenderness Skin: General skin exam: no rashes or lesions noted Neuro: General: oriented to person and patient oriented x3 Cranial nerves: Yes CN's II-XII intact bilaterally Motor exam (neuro): 5/5 motor strength present throughout Sensory Exam: No Sensory deficit (Neuro) Extrem: General: Yes normal to inspection Psych: Appearance: grossly normal Course Reevaluation(s) Reevaluation #1: bedside US did not show bladder distention, his urine is positive for WBC and his symptoms sound like BPH. Will place on keflex and flomax Time: 12:14 Medical Decision Making Differential Diagnosis Differential Diagnoses: The differential diagnosis associated with the presentation includes (urinary obstruction, BPH, prostate CA, renal failure, UTI, cystitis were all considered) Admission/Observation Consideration of admission/observation: Escalation of care including admission/observation considered (upon arrival patient was considered for admission) Lab Data MDM Lab Attestation statement: I reviewed the patient's lab results. (kidneys at better than baseline, UA consistent with infection) 07/13/23 09:52 07/13/23 09:52 Labs: Lab Results 07/13/23 Range/Units 09:52 WBC 14.4 H (4.8-10.8) X10*3/uL RBC 4.31 L (4.60-5.80) X10*6/uL Hgb 12.2 L (14.0-18.0) g/dl Hct 36.3 L (42.0-52.0) % MCV 84.2 (80.0-98.0) fL MCH 28.3 (27.0-33.0) pg MCHC 33.6 (31.0-36.0) g/dl RDW 15.2 (11.0-16.0) % Plt Count 219 (160-400) X10*3/uL MPV 8.1 L (9.4-12.4) fL Immature Gran % (Auto) 1.0 H (0.0-0.4) % Neut % (Auto) 79.2 H (45-73) % Lymph % (Auto) 9.7 L (20-40) % [place] % (Auto) 6.5 (2-11) % Eos % (Auto) 3.3 (0-4) % Baso % (Auto) 0.3 (0-2) % Lymph # (Auto) 1.4 (1.2-4.9) X10*3/uL [place] # (Auto) 0.9 (0.1-1.2) X10*3/uL Eos # (Auto) 0.5 H (0.0-0.4) X10*3/uL Baso # (Auto) 0.0 (0.0-0.2) X10*3/uL Abs Immat Gran (auto) 0.14 H (0.00-0.03) X10*3/uL Absolute Neuts (auto) 11.4 H (2.0-8.3) x10*3/uL Absolute Nucleated RBC 0.000 (0.0-0.012) X10*3/uL Nucleated RBC % (auto) 0.0 (0.0-0.2) /100WBC Sodium 140 (135-145) mmol/L Potassium 3.9 (3.3-5.1) mmol/L Chloride 103 (96-108) mmol/L Carbon Dioxide 26 (22-29) mmol/L Anion Gap 15 (12-20) BUN 34 H (9-16) mg/dL Creatinine 2.79 H (0.5-1.4) mg/dL Estim Creat Clear Calc 16.9 Estimated GFR 22 Random Glucose 308 H (60-115) mg/dL Calcium 9.0 (8.4-10.2) mg/dL Total Bilirubin 0.7 (0.0-1.0) mg/dL AST 13 (5-37) U/L ALT 14 (0-40) U/L Alkaline Phosphatase 120 H (39-117) U/L Total Protein 7.3 (6.5-8.0) g/dL Albumin 3.6 (3.5-5.0) g/dL Urine Color Yellow Urine Appearance Cloudy Urine pH 7.0 (5.0-9.0) Ur Specific [place] 1.020 (1.005-1.025) Urine Protein 100 (2+) H (Neg-Trace) mg/dL Urine Glucose (UA) >=1000 H (Negative) mg/dL Urine Ketones Negative (Negative) mg/dL Urine Blood Small (1+) H (Negative) Urine Nitrite Negative (Negative) Ur Leukocyte Esterase Moderate (2+) H (Negative) Urine RBC 3-5 H (0-2) /HPF Urine WBC >50 H (0-5) /HPF Ur Squamous Epith Cells 0-2 (0-2) /HPF Urine Bacteria 1+ (None Seen) Hyaline Casts 0-2 (0-2) /LPF Independent Historian Clinical information obtained from an independent historian. History obtained from or confirmed by: Other (daughter) Tests considered The following testing was considered but not selected: US considered but patient with no bedside evidence of urinary obstruction Chronic Conditions Patient?s care impacted by: Diabetes, Hypertension and Other (BPH) Discharge Plan Discharge Clinical Impression: Urinary tract infection, Benign prostate hyperplasia Patient Disposition: Home, Self-Care Instructions: Enlarged Prostate (BPH) (ED), Urinary Tract Infection in Men (ED) Prescriptions: New cephalexin 500 mg capsule 500 mg PO Q6H 10 Days Qty: 40 0RF tamsulosin [Flomax] 0.4 mg capsule 0.4 mg PO BEDTIME Qty: 30 0RF No Action terazosin 5 mg capsule 1 cap PO BEDTIME fluticasone propion-salmeterol [Advair Diskus] 250-50 mcg/dose blister with device 1 puff inhalation BID atorvastatin 80 mg tablet 1 tab PO DAILY metoprolol succinate 50 mg tablet extended release 24 hr 1 tab PO DAILY amlodipine 2.5 mg tablet 1 tab PO DAILY aspirin 81 mg Tablet,Delayed Release (Dr/Ec) 81 mg PO DAILY gabapentin 300 mg capsule 1 cap PO BEDTIME montelukast 10 mg tablet 1 tab PO DAILY ergocalciferol (vitamin D2) 1,250 mcg (50,000 unit) capsule 1 cap PO MO albuterol sulfate 90 mcg/actuation HFA aerosol inhaler 2 puff PO Q6H PRN (Reason: wheezing) ceftriaxone 1 gram Recon Soln 1 g IV Q24H Qty: 10 0RF Referrals: Antony Pappas MD [Primary Care Provider] - 3 days
[2023-07-13 12:22] VITALS: BP 169/55; PULSE 58; RESP 14; TEMP 36.6; O2SAT 96
[2023-07-13 12:27] VITALS: BP 162/59; PULSE 61
[2023-07-13] MEDS: cephALEXin 500 MG CAPSULE PO (12:28)
[2023-07-13] MEDS: Tamsulosin HCL 0.4 MG CAPSULE PO (12:28)
== END 2023-07-13 12:44 | disposition home or self-care (01) ==
PROVIDERS: Emergency Provider Emergency Medicine; PCP Internal Medicine
DX: N40.0 Benign prostatic hyperplasia without lower urinary tract symptoms (principal); R33.9 Retention of urine, unspecified; R30.0 Dysuria; N30.01 Acute cystitis with hematuria; Z79.899 Other long term (current) drug therapy
CPT/HCPCS: 36415; 80053; 81001; 81003; 85025; 87086; 99283; 99284

== ENCOUNTER 2023-07-16 17:59 | Emergency (ER) | payer MEDICARE, SELFPAY ==
[2023-07-16 18:27] VITALS: BP 193/66; PULSE 98; RESP 18; TEMP 36.6; O2SAT 94; BMI 27.5
--- NOTE | 2023-07-16 18:37 | ED.MALEGU ---
HPI - Male Genitourinary General Chief complaint: Urogenital-Male Stated complaint: Unable to void Time Seen by Provider: 07/16/23 20:21 Source: patient Mode of arrival: ambulatory Limitations: no limitations History of Present Illness HPI Narrative: Patient with History of enlarged prostate on finasteride been having increased problem for last 4 months got worse earlier today at 13:00 and stopped urinating came here with discomfort bladder scan showed 1500 cc of urine no history of urinary retention in the past no nausea no vomiting no flank patient was started on cephalexin for UTI on 07/03 Related Data Home Medications Medication Instructions Recorded Confirmed albuterol sulfate 90 mcg/actuation 2 puff PO Q6H PRN wheezing 03/11/22 03/11/22 aerosol inhaler amlodipine 2.5 mg tablet 1 tab PO DAILY 03/11/22 03/11/22 aspirin 81 mg tablet,delayed 81 mg PO DAILY 03/11/22 03/11/22 release atorvastatin 80 mg tablet 1 tab PO DAILY 03/11/22 03/11/22 ergocalciferol (vitamin D2) 1,250 1 cap PO MO 03/11/22 03/11/22 mcg (50,000 unit) capsule fluticasone 250 mcg-salmeterol 50 1 puff inhalation BID 03/11/22 03/11/22 mcg/dose blistr powdr for inhalation (Advair Diskus) gabapentin 300 mg capsule 1 cap PO BEDTIME 03/11/22 03/11/22 metoprolol succinate 50 mg 1 tab PO DAILY 03/11/22 03/11/22 tablet,extended release 24 hr montelukast 10 mg tablet 1 tab PO DAILY 03/11/22 03/11/22 terazosin 5 mg capsule 1 cap PO BEDTIME 03/11/22 03/11/22 Previous Rx's Medication Instructions Recorded ceftriaxone 1 gram solution for 1 g IV Q24H #10 ea 03/15/22 injection cephalexin 500 mg capsule 500 mg PO Q6H 10 days #40 caps 07/13/23 tamsulosin 0.4 mg capsule (Flomax) 0.4 mg PO BEDTIME #30 caps 07/13/23 Allergies Allergy/AdvReac Type Severity Reaction Status Date / Time No Known Allergies Allergy Verified 03/11/22 15:12 Review of Systems Review of Systems: Yes all other systems are reviewed and are negative [facility] Past Medical History Medical History Type 2 diabetes mellitus CHF (congestive heart failure) Hypertension Diabetes Asthma COPD (chronic obstructive pulmonary disease) CHF (congestive heart failure) Social History Social History Household Members: None Housing: Apartment Alcohol intake: current Alcohol intake frequency: holidays/special occasions only Alcohol type: beer Patient Tobacco Use Status: Former Tobacco user Smoked in Last 30 Days: No Use of substances other than those prescribed or required for medical reasons: No Advance Directives: No Advance Directives Information Provided: No Advance Directives Date on File: 03/13/22 service: No Current occupational status: retired Physical Exam Vital Signs: Vital Signs: Last Vital Signs Temp 97.8 F 07/16/23 18:27 Pulse 98 07/16/23 18:27 Resp 18 07/16/23 18:27 BP 193/66 H 07/16/23 18:27 Pulse Ox 94 07/16/23 18:27 O2 Del Method Room Air 07/16/23 18:27 BMI result Body Mass Index 27.5 Appearance: Alert. Oriented X3. No acute distress. CVS: Normal heart rate and rhythm. Pulses normal. Respiratory: No respiratory distress. Equal air entry bilateral, Abdomen: Soft , suprapubic fullness Bowel sounds are present, full bladder no CVA tenderness Skin: Skin warm and dry. Normal skin color. Normal skin turgor. Extremities: No lower extremity edema. No calf tenderness Neuro: Oriented X 3. Course Course Course Narrative: RME performed by Marleny Sosa PA-C. Patient is an 82 year old assigned male at presenting to the emergency department with urinary retention. Labs and bladder scan ordered. Patient placed back in the waiting room pending room availability and results. Medical Decision Making Medical Decision Making MDM Narrative: Patient acute retention secondary to prostate enlargement Martinez catheter was placed drain about 1500 cc UA is negative at does have chronic renal disease with stable creatinine discharge patient home advised to follow with urologist Lab Data MDM Lab Attestation statement: I reviewed the patient's lab results. 07/16/23 20:09 07/16/23 20:09 Labs: Lab Results 07/16/23 07/16/23 Range/Units 20:09 20:47 WBC 11.8 H (4.8-10.8) X10*3/uL RBC 4.09 L (4.60-5.80) X10*6/uL Hgb 11.4 L (14.0-18.0) g/dl Hct 33.2 L (42.0-52.0) % MCV 81.2 (80.0-98.0) fL MCH 27.9 (27.0-33.0) pg MCHC 34.3 (31.0-36.0) g/dl RDW 14.8 (11.0-16.0) % Plt Count 203 (160-400) X10*3/uL MPV 8.1 L (9.4-12.4) fL Immature Gran % (Auto) 0.4 (0.0-0.4) % Neut % (Auto) 75.9 H (45-73) % Lymph % (Auto) 8.0 L (20-40) % [place] % (Auto) 9.0 (2-11) % Eos % (Auto) 6.4 H (0-4) % Baso % (Auto) 0.3 (0-2) % Lymph # (Auto) 1.0 L (1.2-4.9) X10*3/uL [place] # (Auto) 1.1 (0.1-1.2) X10*3/uL Eos # (Auto) 0.8 H (0.0-0.4) X10*3/uL Baso # (Auto) 0.0 (0.0-0.2) X10*3/uL Abs Immat Gran (auto) 0.05 H (0.00-0.03) X10*3/uL Absolute Neuts (auto) 9.0 H (2.0-8.3) x10*3/uL Absolute Nucleated RBC 0.000 (0.0-0.012) X10*3/uL Nucleated RBC % (auto) 0.0 (0.0-0.2) /100WBC Sodium 133 L (135-145) mmol/L Potassium 3.6 (3.3-5.1) mmol/L Chloride 99 (96-108) mmol/L Carbon Dioxide 22 (22-29) mmol/L Anion Gap 16 (12-20) BUN 39 H (9-16) mg/dL Creatinine 2.91 H (0.5-1.4) mg/dL Estim Creat Clear Calc 15.8 Estimated GFR 21 Random Glucose 231 H (60-115) mg/dL Calcium 8.9 (8.4-10.2) mg/dL Total Bilirubin 1.2 H (0.0-1.0) mg/dL AST 44 H (5-37) U/L ALT 63 H (0-40) U/L Alkaline Phosphatase 117 (39-117) U/L Total Protein 7.0 (6.5-8.0) g/dL Albumin 3.6 (3.5-5.0) g/dL Urine Color Yellow Urine Appearance Clear Urine pH 7.0 (5.0-9.0) Ur Specific [place] 1.010 (1.005-1.025) Urine Protein 100 (2+) H (Neg-Trace) mg/dL Urine Glucose (UA) >=1000 H (Negative) mg/dL Urine Ketones Negative (Negative) mg/dL Urine Blood Trace H (Negative) Urine Nitrite Negative (Negative) Ur Leukocyte Esterase Negative (Negative) Urine RBC 0-2 (0-2) /HPF Urine WBC 0-5 (0-5) /HPF Ur Squamous Epith Cells 0-2 (0-2) /HPF Urine Bacteria None Seen (None Seen) Hyaline Casts 0-2 (0-2) /LPF Procedures Catheter Insertion (Urinary) Date of insertion: 07/16/23 Time of insertion: 20:46 Reason for placing: Yes Reason for placing indwelling catheter: Acute urinary retention Bladder scan/ultrasound used before catheterization: Yes Estimated amount of urine (mLs): 1,500 Antiseptic solution prep: Povidone-Iodine Topical anesthesia used: Yes Catheter type/location: Urethral Size ([place]): 16 Catheter balloon size (mL): 10 Catheter balloon amount: 10 Results: successfully catheterized-immediate flow Procedure performed: without complications Discharge Plan Discharge Clinical Impression: Acute retention of urine, Benign prostatic hyperplasia Patient Disposition: Home, Self-Care Instructions: Enlarged Prostate (BPH) (ED), Martinez Catheter Placement and Care (ED) Additional Instructions: Martinez catheter care as adv Follow-up with urologist as scheduled Prescriptions: No Action terazosin 5 mg capsule 1 cap PO BEDTIME fluticasone propion-salmeterol [Advair Diskus] 250-50 mcg/dose blister with device 1 puff inhalation BID atorvastatin 80 mg tablet 1 tab PO DAILY metoprolol succinate 50 mg tablet extended release 24 hr 1 tab PO DAILY amlodipine 2.5 mg tablet 1 tab PO DAILY aspirin 81 mg Tablet,Delayed Release (Dr/Ec) 81 mg PO DAILY gabapentin 300 mg capsule 1 cap PO BEDTIME montelukast 10 mg tablet 1 tab PO DAILY ergocalciferol (vitamin D2) 1,250 mcg (50,000 unit) capsule 1 cap PO MO albuterol sulfate 90 mcg/actuation HFA aerosol inhaler 2 puff PO Q6H PRN (Reason: wheezing) ceftriaxone 1 gram Recon Soln 1 g IV Q24H Qty: 10 0RF cephalexin 500 mg capsule 500 mg PO Q6H 10 Days Qty: 40 0RF tamsulosin [Flomax] 0.4 mg capsule 0.4 mg PO BEDTIME Qty: 30 0RF
--- NOTE | 2023-07-16 20:14 | MHC.EDTECH ---
Patient bladder scan was done in Triage ,Provider was made aware of Pt urinary retention of 681 ml ,Patient was brought back to room # 7 ,RN Chiquita was made aware .
[2023-07-16 20:15] LABS: MANUAL DIFF FLAG NO
--- NOTE | 2023-07-16 20:17 | MHC.EDTECH ---
blood drawn and sent to lab .
[2023-07-16 20:18] LABS: Basophils Percent Auto 0.3 % (0-2); Eosinophils Absolute Auto 0.8 X10*3/uL (0.0-0.4); Eosinophils Percent Auto 6.4 % (0-4); Hematocrit 33.2 % (42.0-52.0); Hemoglobin 11.4 g/dl (14.0-18.0); Imm Gran Abs Auto 0.05 X10*3/uL (0.00-0.03); Imm Gran Pct Auto 0.4 % (0.0-0.4); Mean Corpuscular HGB Conc 34.3 g/dl (31.0-36.0); Mean Corpuscular Hemoglobin 27.9 pg (27.0-33.0); Mean Corpuscular Volume 81.2 fL (80.0-98.0); Mean Platelet Volume 8.1 fL (9.4-12.4); Monocytes Absolute Auto 1.1 X10*3/uL (0.1-1.2); Neutrophils Percent Auto 75.9 % (45-73); Platelet Count 203 X10*3/uL (160-400); Red Blood Count 4.09 X10*6/uL (4.60-5.80); Red Cell Distribution Width 14.8 % (11.0-16.0); White Blood Count 11.8 X10*3/uL (4.8-10.8)
--- NOTE | 2023-07-16 20:35 | PC.NURSE ---
provider at bedside inserted patel catheter.
[2023-07-16 20:42] LABS: Alanine Aminotransferase 63 U/L (0-40); Albumin Level 3.6 g/dL (3.5-5.0); Alkaline Phosphatase 117 U/L (39-117); Anion Gap 16 (12-20); Aspartate Amino Transferase 44 U/L (5-37); Bilirubin Total 1.2 mg/dL (0.0-1.0); Blood Urea Nitrogen 39 mg/dL (9-16); Calcium 8.9 mg/dL (8.4-10.2); Carbon Dioxide 22 mmol/L (22-29); Chloride 99 mmol/L (96-108); Creatinine Clr Calc Pharmacy 15.8; Estimated Glomerular Filt Rate 21; Glucose Random 231 mg/dL (60-115); Potassium 3.6 mmol/L (3.3-5.1); Sodium 133 mmol/L (135-145)
[2023-07-16 20:56] LABS: Appearance Urine Clear; Color Urine Yellow; Glucose Urine UA >=1000 mg/dL (Negative); Leukocyte Esterase Urine Negative (Negative); Nitrite Urine Negative (Negative); UMIC TRIGGER UACC YES; Urine Blood Trace (Negative); Urine Ketones Negative (Negative); Urine Protein 100 (2+) mg/dL (Neg-Trace)
[2023-07-16 20:58] LABS: Bacteria Urine None Seen (None Seen); Hyaline Casts Urine 0-2 /LPF (0-2); RBC Urine 0-2 /HPF (0-2); Squamous Epithelial Cell Urine 0-2 /HPF (0-2); WBC Urine 0-5 /HPF (0-5)
--- NOTE | 2023-07-16 21:06 | PC.NURSE ---
pt a&o3, respirations even and unlabored. pt reporting increasing urinary retention with the inability to urinate for one day. pt reports drinking a lot of fluids and only being able to tinkle a small amount of urine. inserted 14F urinary patel catheter, pt drained 900ml of yellow urine immediately after insertion. pt reported instant relief. catheter secured to pt leg.
[2023-07-16] MEDS: Lidocaine HCl 2 % Urojet 10 ML JEL.PF.APP TOPICAL (21:12)
--- NOTE | 2023-07-16 21:34 | PC.NURSE ---
patel education provided to pt and family, no questions at this time. pt ambulated with steady gait.
[2023-07-16 21:35] VITALS: BP 154/59; PULSE 64; RESP 15; TEMP 36.8; O2SAT 94
== END 2023-07-16 21:36 | disposition home or self-care (01) ==
PROVIDERS: Physician Assistant Medical; Emergency Provider Internal Medicine; PCP Internal Medicine
DX: N40.1 Benign prostatic hyperplasia with lower urinary tract symptoms (principal); R33.8 Other retention of urine; Z79.899 Other long term (current) drug therapy
CPT/HCPCS: 36415; 51701; 51702; 51798; 80053; 81001; 85025; 99284; 99285

== ENCOUNTER 2023-07-31 12:16 | Inpatient (IN) | payer MEDICARE, SELFPAY ==
[2023-07-31] VITALS (7 sets, daily range): BP systolic 84–128; BP diastolic 40–53; PULSE 69–109; RESP 14–22; TEMP 36.8–37.2; O2SAT 94–96; BMI 25.6; BMI 18.8
--- NOTE | 2023-07-31 12:35 | PC.NURSE ---
bladder scan obtained with 302mL retained patel cath emptied approx 475mL
--- NOTE | 2023-07-31 12:45 | ED.MALEGU ---
HPI - Male Genitourinary General Chief complaint: Urogenital-Male Stated complaint: GROIN PAIN S/P CATHETER PLACEMENT,HEMATURIA Time Seen by Provider: 07/31/23 12:27 Source: patient Mode of arrival: EMS History of Present Illness HPI Narrative: 82-year-old male who presents via EMS with 10/10 ongoing pain after the visiting nurse placed a Martinez catheter. He denies any fevers or chills. Related Data Home Medications Medication Instructions Recorded Confirmed albuterol sulfate 90 mcg/actuation 2 puff PO Q6H PRN wheezing 03/11/22 03/11/22 aerosol inhaler amlodipine 2.5 mg tablet 1 tab PO DAILY 03/11/22 03/11/22 aspirin 81 mg tablet,delayed 81 mg PO DAILY 03/11/22 03/11/22 release atorvastatin 80 mg tablet 1 tab PO DAILY 03/11/22 03/11/22 ergocalciferol (vitamin D2) 1,250 1 cap PO MO 03/11/22 03/11/22 mcg (50,000 unit) capsule fluticasone 250 mcg-salmeterol 50 1 puff inhalation BID 03/11/22 03/11/22 mcg/dose blistr powdr for inhalation (Advair Diskus) gabapentin 300 mg capsule 1 cap PO BEDTIME 03/11/22 03/11/22 metoprolol succinate 50 mg 1 tab PO DAILY 03/11/22 03/11/22 tablet,extended release 24 hr montelukast 10 mg tablet 1 tab PO DAILY 03/11/22 03/11/22 terazosin 5 mg capsule 1 cap PO BEDTIME 03/11/22 03/11/22 Previous Rx's Medication Instructions Recorded ceftriaxone 1 gram solution for 1 g IV Q24H #10 ea 03/15/22 injection cephalexin 500 mg capsule 500 mg PO Q6H 10 days #40 caps 07/13/23 tamsulosin 0.4 mg capsule (Flomax) 0.4 mg PO BEDTIME #30 caps 07/13/23 cefdinir 300 mg capsule 300 mg PO BID 7 days #14 caps 07/31/23 Allergies Allergy/AdvReac Type Severity Reaction Status Date / Time No Known Allergies Allergy Verified 03/11/22 15:12 Review of Systems Review of Systems: Pertinent positives and negatives as stated in HPI [facility] Past Medical History Source: nursing notes reviewed Onset Date is defined in the Problem List Problems that require an onset date and time if occurred within 24 hrs of arrival to the ED Aortic Dissection and Rupture; Neurologic impairment; Cardiopulmonary Arrest; Endotracheal Intubation; Insertion or Replacement of Mechanical Circulatory Assist Device Medical History Type 2 diabetes mellitus CHF (congestive heart failure) Hypertension Diabetes Asthma COPD (chronic obstructive pulmonary disease) CHF (congestive heart failure) Social History Social History Household Members: None Housing: Apartment Alcohol intake: current Alcohol intake frequency: holidays/special occasions only Alcohol type: beer Patient Tobacco Use Status: Former Tobacco user Advance Directives: No Advance Directives Information Provided: No Advance Directives Date on File: 03/13/22 service: No Current occupational status: retired Physical Exam Vital Signs: Vital Signs: Last Vital Signs Temp 98.2 F 07/31/23 12:24 Pulse 88 07/31/23 12:24 Resp 20 07/31/23 12:24 BP 119/46 L 07/31/23 12:24 Pulse Ox 94 07/31/23 12:24 O2 Del Method Room Air 07/31/23 12:24 BMI result Body Mass Index 25.6 VITAL SIGNS: Reviewed. GENERAL: Well developed, well nourished, in no acute distress. HEAD: Normocephalic/atraumatic EYES: PERRLA, EOMI LUNGS: Normal breath sounds. No adventitious sounds or accessory muscle use. SpO2<94> CARDIOVASCULAR: Regular rate and rhythm without noted murmurs ABDOMEN: Soft, non-tender, non-distended with bowel sounds. : Martinez catheter appears to be too far out and suspect not placed in correct position MUSCULOSKELETAL: No tenderness, deformities, or effusions noted on gross inspection. EXTREMITIES: No cyanosis, clubbing or edema. SKIN: Inspection of the skin reveals no rashes NEUROLOGIC: Alert and oriented x 4. Strength and sensation to light touch were grossly intact x 4. Medical Decision Making Medical Decision Making MDM Narrative: 82-year-old male with history and clinical presentation consistent with incorrectly placed Martinez catheter, on deflation of the balloon that was only 5 cc inflated, cleanse the catheter thoroughly deflated the balloon of the 5 cc in advanced the catheter as far as possible and reinflated the balloon with 10 cc. Patient reports that he has had significant relief of discomfort. Bladder scan reported 302 cc, actual urine output after Martinez catheter was repositioned was over 500 cc. Patient is feeling much better, he initially had a little bit of leakage of urine around the catheter but then passed a clot and then had a release of the over 500 cc of urine. He is otherwise stable for discharge back to home. Urinalysis positive for UTI, patient received initial antibiotics here and will be discharged on remaining course. Differential Diagnosis Differential Diagnoses: The differential diagnosis associated with the presentation includes Please see the discussion above Admission/Observation Consideration of admission/observation: Escalation of care including admission/observation considered Please see the discussion above Lab Data MDM Lab Attestation statement: I reviewed the patient's lab results. Please see the discussion above Labs: Lab Results 07/31/23 Range/Units 13:10 Urine Color Yellow Urine Appearance Turbid Urine pH 5.0 (5.0-9.0) Ur Specific [place] 1.010 (1.005-1.025) Urine Protein 100 (2+) H (Neg-Trace) mg/dL Urine Glucose (UA) >=1000 H (Negative) mg/dL Urine Ketones Negative (Negative) mg/dL Urine Blood Large (3+) H (Negative) Urine Nitrite Positive H (Negative) Ur Leukocyte Esterase Moderate (2+) H (Negative) Procedures Catheter Insertion (Urinary) Date of insertion: 07/31/23 Time of insertion: 13:02 Reason for placing: No Bladder scan/ultrasound used before catheterization: Yes Estimated amount of urine (mLs): 500 Antiseptic solution prep: Povidone-Iodine Topical anesthesia used: No Catheter type/location: Urethral Size ([place]): 20 Catheter balloon size (mL): 10 Catheter balloon amount: 10 Results: successfully catheterized-immediate flow Procedure performed: without complications Complications: Visiting nurse possibly did not place the catheter far enough. Discharge Plan Discharge Clinical Impression: Malfunction of Martinez catheter, Acute UTI Patient Disposition: Home, Self-Care Instructions: Urinary Tract Infection in Men (ED), Martinez Catheter Placement and Care (ED) Additional Instructions: 1. Resume all home medications as prescribed. 2. Complete the entire course of antibiotics as prescribed. Return to the ER for any worsening symptoms. Prescriptions: New cefdinir 300 mg capsule 300 mg PO BID 7 Days Qty: 14 0RF No Action terazosin 5 mg capsule 1 cap PO BEDTIME fluticasone propion-salmeterol [Advair Diskus] 250-50 mcg/dose blister with device 1 puff inhalation BID atorvastatin 80 mg tablet 1 tab PO DAILY metoprolol succinate 50 mg tablet extended release 24 hr 1 tab PO DAILY amlodipine 2.5 mg tablet 1 tab PO DAILY aspirin 81 mg Tablet,Delayed Release (Dr/Ec) 81 mg PO DAILY gabapentin 300 mg capsule 1 cap PO BEDTIME montelukast 10 mg tablet 1 tab PO DAILY ergocalciferol (vitamin D2) 1,250 mcg (50,000 unit) capsule 1 cap PO MO albuterol sulfate 90 mcg/actuation HFA aerosol inhaler 2 puff PO Q6H PRN (Reason: wheezing) ceftriaxone 1 gram Recon Soln 1 g IV Q24H Qty: 10 0RF cephalexin 500 mg capsule 500 mg PO Q6H 10 Days Qty: 40 0RF tamsulosin [Flomax] 0.4 mg capsule 0.4 mg PO BEDTIME Qty: 30 0RF
--- NOTE | 2023-07-31 12:57 | PC.NURSE ---
Addendum entered by Alida Craig RN 07/31/23 13:02: 500 ml drainage after cath advanced Original Note: advanced patel catheter, patient had urge to void, patient voided around catheter, large clot displaced into bag, patient urine has pink tinge compared to dark red/bown urine that was emptied upon arrival. patient denies pain now that catheter is in the right place. 10cc in balloon.
--- NOTE | 2023-07-31 17:10 | PM.IMHP ---
History of Present Illness Date of Service: 07/31/23 Chief Complaint: confusion 82-year-old man presented to the ER with complaints of difficulty with urination and pain after Patel catheter placement. Patient had initially presented to the ER on 07/16 with urinary retention, Patel catheter was placed and was discharged home to follow-up with urologist. Apparently visiting nurse had replaced the Patel catheter and since then he had been having discomfort. In the ER it appeared that the catheter was ill placed and blocking urine from being able to enter the Patel catheter. He had a new Patel catheter placed on Likely from the manipulation he developed some hematuria and also probably from the ill placed catheter. He no longer had any issues with retention urine was flowing through the Patel catheter. Patient did report some confusion and overall general malaise. In the ER he had leukopenia, tachycardia, to episodes of hypotension, he did receive 30 mL/kg IV fluid bolus and his blood pressure did respond. He was given a dose of IV Rocephin, ibuprofen, Augmentin, Tylenol. He will be admitted for further management and treatment related to sepsis secondary to urinary tract infection. Review of Systems Review of Systems: Denies any recent fever chills or decrease in appetite respiratory denies any shortness of breath coverage production cardiovascular denies chest pain gastrointestinal denies any dysphagia abdominal pain nausea vomiting or diarrhea genitourinary urinary retention with hematuria, Patel catheter musculoskeletal denies any joint pain or swelling neuropsych denies any weakness or seizures all other systems reviewed are negative [facility] Medical History Type 2 diabetes mellitus CHF (congestive heart failure) Hypertension Diabetes Asthma COPD (chronic obstructive pulmonary disease) CHF (congestive heart failure) Social History Household Members: None Housing: Apartment Alcohol intake: current Alcohol intake frequency: holidays/special occasions only Alcohol type: beer Patient Tobacco Use Status: Former Tobacco user Advance Directives: No Advance Directives Information Provided: No Advance Directives Date on File: 03/13/22 service: No Current occupational status: retired Meds Allergies Allergy/AdvReac Type Severity Reaction Status Date / Time No Known Allergies Allergy Verified 03/11/22 15:12 Home Medications Medication Instructions Recorded Confirmed Last Taken Type albuterol sulfate 90 mcg/actuation 2 puff PO Q6H PRN wheezing 03/11/22 07/31/23 Unknown History aerosol inhaler amlodipine 2.5 mg tablet 1 tab PO DAILY 03/11/22 07/31/23 03/11/22 History aspirin 81 mg tablet,delayed 81 mg PO DAILY 03/11/22 07/31/23 03/11/22 History release atorvastatin 80 mg tablet 1 tab PO DAILY 03/11/22 07/31/23 03/11/22 History ergocalciferol (vitamin D2) 1,250 1 cap PO MO 03/11/22 07/31/23 03/09/22 History mcg (50,000 unit) capsule gabapentin 300 mg capsule 1 cap PO BEDTIME 03/11/22 07/31/23 03/10/22 History metoprolol succinate 50 mg 1 tab PO DAILY 03/11/22 07/31/23 03/11/22 History tablet,extended release 24 hr montelukast 10 mg tablet 1 tab PO DAILY 03/11/22 07/31/23 03/11/22 History dapagliflozin propanediol 5 mg 5 mg PO DAILY 07/31/23 07/31/23 Unknown History tablet (Farxiga) finasteride 5 mg tablet 5 mg PO DAILY 07/31/23 07/31/23 Unknown History glipizide 10 mg tablet 10 mg PO BID 07/31/23 07/31/23 Unknown History insulin degludec 200 unit/mL (3 74 unit subcut QAM 07/31/23 07/31/23 Unknown History mL) subcutaneous pen (Tresiba FlexTouch U-200 insulin) torsemide 20 mg tablet 40 mg PO DAILY 07/31/23 07/31/23 Unknown History Physical Exam Vital Signs and Narrative: Vital Signs: Last Vital Signs Temp 98.3 F 07/31/23 15:57 Pulse 76 07/31/23 17:02 Resp 14 07/31/23 17:02 BP 116/50 L 07/31/23 17:02 Pulse Ox 95 07/31/23 17:02 O2 Del Method Room Air 07/31/23 17:02 BMI result Body Mass Index 25.6 Appearing in no acute distress head is normocephalic atraumatic eyes pupils are PERRLA sclera is anicteric mouth throat mucous membranes are intact and moist neck is supple no lymphadenopathy, no JVD noted lung sounds are clear to auscultation heart regular rate rhythm, clear S1, S2 positive bowel sounds, abdomen is soft, nontender neuro patient is alert x3, no focal deficits Patel catheter in place Results Labs 07/31/23 15:14 07/31/23 15:14 Labs: Laboratory Results - last 24 hr 07/31/23 07/31/23 07/31/23 13:10 15:14 16:05 MCV 82.7 MCH 28.4 MCHC 34.3 RDW 16.2 H Plt Count 201 MPV 8.1 L Immature Gran % (Auto) Cancelled Neut % (Auto) Cancelled Lymph % (Auto) Cancelled [place] % (Auto) Cancelled Eos % (Auto) Cancelled Baso % (Auto) Cancelled Lymph # (Auto) Cancelled [place] # (Auto) Cancelled Eos # (Auto) Cancelled Baso # (Auto) Cancelled Abs Immat Gran (auto) Cancelled Absolute Neuts (auto) Cancelled Absolute Nucleated RBC 0.000 Nucleated RBC % (auto) 0.0 Neutrophils % (Manual) 0 L Band Neutrophils % 1 L Lymphocytes % (Manual) 27 Atypical Lymphs % (Man) 2 Monocytes % (Manual) 61 H Eosinophils % (Manual) 1 Basophils % (Manual) 8 H Abs Neuts (Manual) Not Reportable Lymphocytes # (Manual) 0.6 L Monocytes # (Manual) 1.3 H Basophils # (Manual) 0.2 Platelet Estimate NORMAL Giant Platelets PRESENT Plt Morphology Comment NORMAL RBC Morphology NOTED Polychromasia 1+ (0-2) Basophilic Stippling 1+ (0-2) Microcytosis 2+ (15-30) Macrocytosis 1+ (5-14) Anion Gap 17 Estim Creat Clear Calc 13.7 Estimated GFR 17 POC Glucose 117 H Random Glucose 151 H Lactic Acid 1.9 Calcium 9.1 Total Bilirubin 1.8 H AST 17 ALT 19 Alkaline Phosphatase 102 Total Creatine Kinase 59 Total Protein 6.5 Albumin 3.4 L Urine Color Yellow Urine Appearance Turbid Urine pH 5.0 Ur Specific [place] 1.010 Urine Protein 100 (2+) H Urine Glucose (UA) >=1000 H Urine Ketones Negative Urine Blood Large (3+) H Urine Nitrite Positive H Ur Leukocyte Esterase Moderate (2+) H Urine RBC >20 H Urine WBC >50 H Ur Squamous Epith Cells 6-10 Urine Bacteria 4+ Hyaline Casts 6-10 Urine Yeast Present Assessment and Plan (1) Severe sepsis: Status: Acute Plan 82 year old man admitted with sepsis secondary to UTI Sepsis secondary to UTI Leukopenia, tachycardia Rocephin follow final urine cx patel catheter in place Hematuria Improving likely from ill placed patel cathether clearing up, now tea colored if hematuria returns/persists start CBI and consult Urology stable HH Urinary retention Patel catheter in place Continue finasteride and tamsulosin Hypotension More stable at this point but hold antihypertensives for now, re-evaluate tomorrow Diabetes mellitus type 2 Sliding scale, Lantus, ADA diet Hyperkalemia mild monitor KAILEY on CKD 4 likely secondary to UTI IV fluids follow BMP DVT prophylaxis with Heparin Full code Patient requires 2 inpatient midnights for treatment of sepsis secondary to UTI requiring IV antibiotics and close monitoring of symptoms including hematuria, patient may require CBI if he develops worsening clotting or bleeding. Quality Stroke Does the patient have a stroke diagnosis?: No VTE Prior VTE?: No VTE Risk Level:: Medical - moderate - high VTE Device Contraindication: Treatment Not Indicated VTE Drug Contraindication: N/A - Med Ordered
--- NOTE | 2023-07-31 17:11 | MHC.EDTECH ---
This pct took dumented vitals on the wrong patient disregard vitals done 1652. RN Aware
--- NOTE | 2023-07-31 17:29 | PHA.MEDREC ---
Pharmacy Consult ? Medication Reconciliation Pharmacy has completed the medication reconciliation. Spoke with patients edwin
--- NOTE | 2023-07-31 19:24 | PC.NURSE ---
Addendum entered by Stacia Ramsey 07/31/23 19:24: pt sleeping resp even and unlabored. nsr on monitor 70 bpm. Original Note: assumed care of pt at this time.
--- NOTE | 2023-08-01 03:05 | PC.NURSE ---
1245 am pt symptomatic blood sugar checked poc= 60 pt was given snack rechecked blood sugar = 126 pt feels much better.
[2023-08-01 05:15] VITALS: BP 124/60; PULSE 101; RESP 18; TEMP 38.1; O2SAT 95
[2023-08-01 07:06] LABS: Anion Gap 15 (12-20); Blood Urea Nitrogen 53 mg/dL (9-16); Calcium 8.9 mg/dL (8.4-10.2); Carbon Dioxide 20 mmol/L (22-29); Chloride 107 mmol/L (96-108); Creatinine Clr Calc Pharmacy 12.6; Estimated Glomerular Filt Rate 19; Glucose Random 96 mg/dL (60-115); Sodium 137 mmol/L (135-145)
[2023-08-01 07:25] VITALS: BP 110/52; PULSE 90; RESP 18; TEMP 38.1; O2SAT 95
[2023-08-01 09:04] VITALS: TEMP 37.2
--- NOTE | 2023-08-01 10:14 | MHC.CM.PN ---
Addendum entered by Shakira Lundberg 08/02/23 10:37: MESSAGE RECEIVED FROM [facility] PT WILL NEED A NEW FACE TO FACE AT [place] EVEN IF HE RETURNS TO THEIR AGENCY Original Note: Interview conducted w/family (Denia): lives w/daughter Denia. Owns wheeled walker, still drives. Previously had [facility]...DO NOT MAKE RETURN REFERRAL until Pt stabilizes and indicates if he [facility] to [facility] or would like a new VNA. D/C plan is to return home w/daughter via daughter and VNA services... pending Pt's choice (return to [facility] service VS new VNA). At this time, he is unable to lucidly make sound decision D/T sepsis. CM to follow.
--- NOTE | 2023-08-01 11:32 | HO.PM.IMPN ---
Subjective Subjective Date of Service: 08/01/23 Review of Systems Follow up hematuria and pain better today no pain Physical Exam Vital Signs: Vital Signs: Last Vital Signs Temp 99.0 F 08/01/23 09:04 Pulse 90 08/01/23 07:25 Resp 18 08/01/23 07:25 BP 110/52 L 08/01/23 07:25 Pulse Ox 95 08/01/23 07:25 O2 Del Method Room Air 08/01/23 07:25 BMI result Body Mass Index 18.8 Appearing in no acute distress lung sounds are clear to auscultation heart regular rate rhythm, clear S1, S2 positive bowel sounds, abdomen is soft, nontender neuro patient is alert x3, no focal deficits Patel catheter Objective Data Active Medications Acetaminophen (Acetaminophen 325 Mg Tablet) 650 mg PO Q6H PRN PRN Reason: Pain, Mild (Pain Scale 1-3) Last Admin: 08/01/23 07:42 Dose: 650 mg Documented By: OMAR Atorvastatin Calcium (Atorvastatin Calcium 80 Mg Tablet) 80 mg PO DAILY [facility] Last Admin: 08/01/23 07:41 Dose: 80 mg Documented By: OMAR Ergocalciferol (Ergocalciferol (Vitamin D2) 1,250 Mcg Capsule) 1,250 mcg PO Mo@0900 [facility] Finasteride (Finasteride 5 Mg Tablet) 5 mg PO DAILY [facility] Last Admin: 08/01/23 07:41 Dose: 5 mg Documented By: OMAR Gabapentin (Gabapentin 300 Mg Capsule) 300 mg PO BEDTIME [facility] Last Admin: 07/31/23 22:35 Dose: 300 mg Documented By: BLOSSOM Heparin Sodium (Porcine) (Heparin Sodium,Porcine 5,000 Unit/Ml Vial) 5,000 unit SUBCUT Q12H [facility] Last Admin: 08/01/23 05:54 Dose: 5,000 unit Documented By: BLOSSOM Ceftriaxone Sodium 1 gm/ (Sodium Chloride) 50 mls @ 100 mls/hr IV Q24H [facility] Insulin Glargine (Insulin Glargine,Hum.Rec.Anlog 100 Unit/Ml 10 Ml Vial) 52 unit SUBCUT DAILY [facility] Last Admin: 08/01/23 07:41 Dose: 52 unit Documented By: OMAR Metoprolol Succinate (Metoprolol Succinate Er 50 Mg Tab.Er.24h) 50 mg PO DAILY [facility]; Protocol Last Admin: 08/01/23 07:41 Dose: 50 mg Documented By: OMAR Montelukast Sodium (Montelukast Sodium 10 Mg Tablet) 10 mg PO BEDTIME [facility] Ondansetron HCl (Ondansetron Hcl 4 Mg/2 Ml Vial) 4 mg IVPUSH Q8H PRN PRN Reason: Nausea and Vomiting Tamsulosin HCl (Tamsulosin Hcl 0.4 Mg Capsule) 0.4 mg PO BEDTIME [facility] Last Admin: 07/31/23 22:35 Dose: 0.4 mg Documented By: BLOSSOM Comments: new admit Torsemide (Torsemide 20 Mg Tablet) 40 mg PO DAILY [facility]; Protocol Last Admin: 08/01/23 07:45 Dose: 40 mg Documented By: OMAR Labs 08/01/23 05:38 08/01/23 05:38 Labs: Laboratory Results - last 24 hr 07/31/23 07/31/23 07/31/23 13:10 15:14 16:05 MCV 82.7 MCH 28.4 MCHC 34.3 RDW 16.2 H Plt Count 201 MPV 8.1 L Immature Gran % (Auto) Cancelled Neut % (Auto) Cancelled Lymph % (Auto) Cancelled [place] % (Auto) Cancelled Eos % (Auto) Cancelled Baso % (Auto) Cancelled Lymph # (Auto) Cancelled [place] # (Auto) Cancelled Eos # (Auto) Cancelled Baso # (Auto) Cancelled Abs Immat Gran (auto) Cancelled Absolute Neuts (auto) Cancelled Absolute Nucleated RBC 0.000 Nucleated RBC % (auto) 0.0 Neutrophils % (Manual) 0 L Band Neutrophils % 1 L Lymphocytes % (Manual) 27 Atypical Lymphs % (Man) 2 Monocytes % (Manual) 61 H Eosinophils % (Manual) 1 Basophils % (Manual) 8 H Abs Neuts (Manual) Not Reportable Lymphocytes # (Manual) 0.6 L Monocytes # (Manual) 1.3 H Eosinophils # (Manual) Basophils # (Manual) 0.2 Dohle Bodies Platelet Estimate NORMAL Giant Platelets PRESENT Plt Morphology Comment NORMAL RBC Morphology NOTED Polychromasia 1+ (0-2) Basophilic Stippling 1+ (0-2) Microcytosis 2+ (15-30) Macrocytosis 1+ (5-14) Ovalocytes Anion Gap 17 Estim Creat Clear Calc 13.7 Estimated GFR 17 POC Glucose 117 H Random Glucose 151 H Lactic Acid 1.9 Calcium 9.1 Magnesium Total Bilirubin 1.8 H AST 17 ALT 19 Alkaline Phosphatase 102 Total Creatine Kinase 59 Total Protein 6.5 Albumin 3.4 L Urine Color Yellow Urine Appearance Turbid Urine pH 5.0 Ur Specific [place] 1.010 Urine Protein 100 (2+) H Urine Glucose (UA) >=1000 H Urine Ketones Negative Urine Blood Large (3+) H Urine Nitrite Positive H Ur Leukocyte Esterase Moderate (2+) H Urine RBC >20 H Urine WBC >50 H Ur Squamous Epith Cells 6-10 Urine Bacteria 4+ Hyaline Casts 6-10 Urine Yeast Present Influenza Type A (PCR) Influenza Type B (PCR) RSV RNA Qual (PCR) SARS-CoV-2 RNA (RT-PCR) 07/31/23 08/01/23 08/01/23 16:13 00:40 02:01 MCV MCH MCHC RDW Plt Count MPV Immature Gran % (Auto) Neut % (Auto) Lymph % (Auto) [place] % (Auto) Eos % (Auto) Baso % (Auto) Lymph # (Auto) [place] # (Auto) Eos # (Auto) Baso # (Auto) Abs Immat Gran (auto) Absolute Neuts (auto) Absolute Nucleated RBC Nucleated RBC % (auto) Neutrophils % (Manual) Band Neutrophils % Lymphocytes % (Manual) Atypical Lymphs % (Man) Monocytes % (Manual) Eosinophils % (Manual) Basophils % (Manual) Abs Neuts (Manual) Lymphocytes # (Manual) Monocytes # (Manual) Eosinophils # (Manual) Basophils # (Manual) Dohle Bodies Platelet Estimate Giant Platelets Plt Morphology Comment RBC Morphology Polychromasia Basophilic Stippling Microcytosis Macrocytosis Ovalocytes Anion Gap Estim Creat Clear Calc Estimated GFR POC Glucose 60 126 H Random Glucose Lactic Acid Calcium Magnesium Total Bilirubin AST ALT Alkaline Phosphatase Total Creatine Kinase Total Protein Albumin Urine Color Urine Appearance Urine pH Ur Specific [place] Urine Protein Urine Glucose (UA) Urine Ketones Urine Blood Urine Nitrite Ur Leukocyte Esterase Urine RBC Urine WBC Ur Squamous Epith Cells Urine Bacteria Hyaline Casts Urine Yeast Influenza Type A (PCR) NEGATIVE Influenza Type B (PCR) NEGATIVE RSV RNA Qual (PCR) NEGATIVE SARS-CoV-2 RNA (RT-PCR) NEGATIVE 08/01/23 08/01/23 05:38 07:23 MCV 86.3 MCH 28.6 MCHC 33.1 RDW 16.6 H Plt Count 198 MPV 9.0 L Immature Gran % (Auto) Cancelled Neut % (Auto) Cancelled Lymph % (Auto) Cancelled [place] % (Auto) Cancelled Eos % (Auto) Cancelled Baso % (Auto) Cancelled Lymph # (Auto) Cancelled [place] # (Auto) Cancelled Eos # (Auto) Cancelled Baso # (Auto) Cancelled Abs Immat Gran (auto) Cancelled Absolute Neuts (auto) Cancelled Absolute Nucleated RBC 0.000 Nucleated RBC % (auto) 0.0 Neutrophils % (Manual) 7 L Band Neutrophils % 6 H Lymphocytes % (Manual) 18 L Atypical Lymphs % (Man) Monocytes % (Manual) 51 H Eosinophils % (Manual) 12 H Basophils % (Manual) 6 H Abs Neuts (Manual) 0.2 L Lymphocytes # (Manual) 0.3 L Monocytes # (Manual) 0.9 Eosinophils # (Manual) 0.2 Basophils # (Manual) 0.1 Dohle Bodies PRESENT Platelet Estimate NORMAL Giant Platelets Plt Morphology Comment NORMAL RBC Morphology NOTED Polychromasia 1+ (0-2) Basophilic Stippling Microcytosis Macrocytosis Ovalocytes 1+ (5-14) Anion Gap 15 Estim Creat Clear Calc 12.6 Estimated GFR 19 POC Glucose 102 Random Glucose 96 Lactic Acid Calcium 8.9 Magnesium 2.3 Total Bilirubin AST ALT Alkaline Phosphatase Total Creatine Kinase Total Protein Albumin Urine Color Urine Appearance Urine pH Ur Specific [place] Urine Protein Urine Glucose (UA) Urine Ketones Urine Blood Urine Nitrite Ur Leukocyte Esterase Urine RBC Urine WBC Ur Squamous Epith Cells Urine Bacteria Hyaline Casts Urine Yeast Influenza Type A (PCR) Influenza Type B (PCR) RSV RNA Qual (PCR) SARS-CoV-2 RNA (RT-PCR) Microbiology Microbiology Results: Microbiology 07/31/23 15:21 Blood Culture - Preliminary Blood - Venous Prelim: GNR Gram Stain only 07/31/23 15:14 Blood Culture - Preliminary Blood - Venous Prelim: GNR Gram Stain only Assessment and Plan (1) Severe sepsis: Status: Acute Plan 82 year old man admitted with sepsis secondary to UTI with hematuria from traumatic patel cath placement GNR bacteremia Continue Rocephin follow cx ID consult pending Sepsis secondary to UTI Leukopenia, tachycardia, fever Rocephin follow final urine cx patel catheter in place Hematuria Improving likely from ill placed patel cathether clearing up, now tea colored if hematuria returns/persists start CBI and consult Urology stable HH Urinary retention Patel catheter in place Continue finasteride and tamsulosin Hypotension More stable at this point but hold antihypertensives for now, re-evaluate tomorrow Diabetes mellitus type 2 Sliding scale, Lantus, ADA diet Hyperkalemia mild monitor KAILEY on CKD 4 likely secondary to UTI IV fluids follow BMP DVT prophylaxis with Heparin Attending Dr. Coffman Full code continued hospital stay for treatment of sepsis secondary to UTI requiring IV antibiotics and close monitoring of symptoms including hematuria, patient may require CBI if he develops worsening clotting or bleeding. Quality Stroke Does the patient have a stroke diagnosis?: No VTE Prior VTE?: No VTE Risk Level:: Medical - moderate - high VTE Device Contraindication: Treatment Not Indicated VTE Drug Contraindication: N/A - Med Ordered
--- NOTE | 2023-08-01 12:56 | PC.NURSE ---
Thus far Pt tolerating being on RA.
[2023-08-01 16:00] VITALS: BP 149/65; PULSE 86; RESP 18; TEMP 37.3; O2SAT 97
[2023-08-01 20:00] VITALS: BP 144/67; PULSE 82; RESP 20; TEMP 37.2; O2SAT 96
--- NOTE | 2023-08-02 | ECG_ITS ---
Test Reason : check QTC Blood Pressure : / mmHG Vent. Rate : 081 BPM Atrial Rate : 081 BPM P-R Int : 208 ms QRS Dur : 092 ms QT Int : 380 ms P-R-T Axes : 060 -13 143 degrees QTc Int : 441 ms Normal sinus rhythm Minimal voltage criteria for LVH, may be normal variant ( Rudy product ) Possible Anterior infarct , age undetermined T wave abnormality, consider lateral ischemia Abnormal ECG When compared with ECG of 11-MAR-2022 16:07, OK interval has increased Referred By: Melissa De León Electronically Signed By:MARIA DE JESUS MERCEDES MD
[2023-08-02 03:37] VITALS: BP 136/65; PULSE 83; RESP 16; TEMP 35.9; O2SAT 95
[2023-08-02 05:57] LABS: Anion Gap 13 (12-20); Blood Urea Nitrogen 59 mg/dL (9-16); Calcium 8.9 mg/dL (8.4-10.2); Carbon Dioxide 23 mmol/L (22-29); Chloride 104 mmol/L (96-108); Creatinine Clr Calc Pharmacy 11.1; Estimated Glomerular Filt Rate 16; Glucose Random 68 mg/dL (60-115); Potassium 4.7 mmol/L (3.3-5.1); Sodium 135 mmol/L (135-145)
[2023-08-02 06:49] VITALS: BP 140/72; PULSE 70; RESP 18; TEMP 36.6; O2SAT 96
--- NOTE | 2023-08-02 10:37 | MHC.CM.PN ---
PER MD ROUNDS, PT NOT READY TO DC ID CONSULT PENDING DCP LIKELY HOME WITH VNA PT WAS WITH [facility] HOWEVER DAUGHTER HAS INDICATED SHE IS UNSURE IF HE WILL WANT TO RETURN TO THE SAME AGENCY PT WILL NEED FACE TO FACE ORDERS FOR VNA EVEN IF HE DOES RETURN TO [facility]
--- NOTE | 2023-08-02 11:18 | HO.PM.IMPN ---
Subjective Subjective Date of Service: 08/02/23 Review of Systems Follow up hematuria and pain better today no pain Physical Exam Vital Signs: Vital Signs: Last Vital Signs Temp 97.8 F 08/02/23 06:49 Pulse 70 08/02/23 06:49 Resp 18 08/02/23 06:49 BP 140/72 H 08/02/23 06:49 Pulse Ox 96 08/02/23 06:49 O2 Del Method Room Air 08/02/23 06:49 BMI result Body Mass Index 18.8 Appearing in no acute distress lung sounds are clear to auscultation heart regular rate rhythm, clear S1, S2 positive bowel sounds, abdomen is soft, nontender neuro patient is alert x3, no focal deficits Objective Data Active Medications Acetaminophen (Acetaminophen 325 Mg Tablet) 650 mg PO Q6H PRN PRN Reason: Pain, Mild (Pain Scale 1-3) Last Admin: 08/01/23 07:42 Dose: 650 mg Documented By: OMAR Atorvastatin Calcium (Atorvastatin Calcium 80 Mg Tablet) 80 mg PO DAILY [facility] Last Admin: 08/02/23 09:05 Dose: 80 mg Documented By: LORY Calcium Carbonate (Calcium Carbonate 750 Mg Tab.Chew) 750 mg PO Q6H PRN PRN Reason: Heartburn Last Admin: 08/01/23 19:58 Dose: 750 mg Documented By: PRICILA Ergocalciferol (Ergocalciferol (Vitamin D2) 1,250 Mcg Capsule) 1,250 mcg PO Mo@0900 [facility] Last Admin: 08/02/23 09:05 Dose: 1,250 mcg Documented By: LORY Finasteride (Finasteride 5 Mg Tablet) 5 mg PO DAILY [facility] Last Admin: 08/02/23 09:05 Dose: 5 mg Documented By: LORY Gabapentin (Gabapentin 300 Mg Capsule) 300 mg PO BEDTIME [facility] Last Admin: 08/01/23 19:54 Dose: 300 mg Documented By: PRICILA Heparin Sodium (Porcine) (Heparin Sodium,Porcine 5,000 Unit/Ml Vial) 5,000 unit SUBCUT Q12H [facility] Last Admin: 08/02/23 06:14 Dose: 5,000 unit Documented By: PRICILA Ceftriaxone Sodium 1 gm/ (Sodium Chloride) 50 mls @ 100 mls/hr IV Q24H [facility] Last Infusion: 08/01/23 15:05 Dose: Infused Documented By: OMAR Insulin Glargine (Insulin Glargine,Hum.Rec.Anlog 100 Unit/Ml 10 Ml Vial) 52 unit SUBCUT DAILY [facility] Last Admin: 08/02/23 09:04 Dose: 52 unit Documented By: LORY Metoprolol Succinate (Metoprolol Succinate Er 50 Mg Tab.Er.24h) 50 mg PO DAILY [facility]; Protocol Last Admin: 08/02/23 09:05 Dose: 50 mg Documented By: LORY Montelukast Sodium (Montelukast Sodium 10 Mg Tablet) 10 mg PO BEDTIME [facility] Last Admin: 08/01/23 19:55 Dose: 10 mg Documented By: PRICILA Ondansetron HCl (Ondansetron Hcl 4 Mg/2 Ml Vial) 4 mg IVPUSH Q8H PRN PRN Reason: Nausea and Vomiting Tamsulosin HCl (Tamsulosin Hcl 0.4 Mg Capsule) 0.4 mg PO BEDTIME [facility] Last Admin: 08/01/23 19:54 Dose: 0.4 mg Documented By: PRICILA Torsemide (Torsemide 20 Mg Tablet) 40 mg PO DAILY [facility]; Protocol Last Admin: 08/01/23 07:45 Dose: 40 mg Documented By: OMAR Labs 08/01/23 05:38 08/02/23 05:31 Labs: Laboratory Results - last 24 hr 07/31/23 08/01/23 08/01/23 15:14 11:27 16:47 Smear Path Review SEE NOTE Hold Purple Top Anion Gap Estim Creat Clear Calc Estimated GFR POC Glucose 174 H 152 H Random Glucose Calcium 08/01/23 08/02/23 08/02/23 20:40 05:31 07:05 Smear Path Review Hold Purple Top SEE NOTE Anion Gap 13 Estim Creat Clear Calc 11.1 Estimated GFR 16 POC Glucose 162 H 69 Random Glucose 68 Calcium 8.9 08/02/23 08/02/23 07:49 11:10 Smear Path Review Hold Purple Top Anion Gap Estim Creat Clear Calc Estimated GFR POC Glucose 130 H 264 H Random Glucose Calcium Microbiology Microbiology Results: Microbiology 07/31/23 15:21 Blood Culture - Preliminary Blood - Venous Gram negative pedro pablo 07/31/23 15:14 Blood Culture - Preliminary Blood - Venous Gram negative pedro pablo 07/31/23 Unknown Urine Culture - Final Urine Catheterized - Patel Catheter Serratia marcescens Assessment and Plan (1) Severe sepsis: Status: Acute Plan 82 year old man admitted with sepsis secondary to UTI with hematuria from traumatic patel cath placement GNR bacteremia Continue Rocephin follow cx ID consult pending Sepsis secondary to Serratia Marcescens UTI sepsis resolved Rocephin Hematuria Resolved likely from ill placed patel cathether stable HH Urinary retention Patel catheter in place Continue finasteride and tamsulosin Hypotension Resolved resume amlodipine Diabetes mellitus type 2 Sliding scale, Lantus, ADA diet Hyperkalemia mild monitor KAILEY on CKD 4 likely secondary to UTI IV fluids follow BMP DVT prophylaxis with Heparin Attending Dr. Phillips Full code continued hospital stay for treatment of sepsis secondary to UTI requiring IV antibiotics and close monitoring of symptoms including hematuria, patient may require CBI if he develops worsening clotting or bleeding. Quality Stroke Does the patient have a stroke diagnosis?: No VTE Prior VTE?: No VTE Risk Level:: Medical - moderate - high VTE Device Contraindication: Treatment Not Indicated VTE Drug Contraindication: N/A - Med Ordered
[2023-08-02 14:06] VITALS: BMI 25.6
--- NOTE | 2023-08-02 14:08 | MHC.CLN ---
NUTRITION ADDED DIABETIC 1800 KCAL TO DIET ORDER. DIET=DIABETIC 1800 KCAL, 2 G SODIUM. WEIGHT DISCREPANCY ON 07/31 WITH WEIGHTS=48.1 KG AND 65.6 KG. USED WEIGHT=65.6 KG FOR RISK ASSESSMENT SINCE IN LINE WITH RECENT PRIOR WEIGHTS.
[2023-08-02 15:24] VITALS: BP 138/63; PULSE 90; RESP 18; TEMP 36.9; O2SAT 94
[2023-08-02 16:16] LABS: Glucose, Whole Blood 234 mg/dL (60-115)
[2023-08-02] MEDS: Heparin Sodium,Porcine 5,000 UNIT/ML VIAL 5000 UNIT SUBCUT (18:16)
[2023-08-02 19:38] VITALS: BP 130/70; PULSE 77; RESP 18; TEMP 37.2; O2SAT 97
[2023-08-02] MEDS: Gabapentin 300 MG CAPSULE PO (20:14)
[2023-08-02] MEDS: Montelukast Sodium 10 MG TABLET PO (20:14)
[2023-08-02] MEDS: Tamsulosin HCL 0.4 MG CAPSULE PO (20:14)
[2023-08-02 20:38] LABS: Glucose, Whole Blood 263 mg/dL (60-115)
[2023-08-02] MEDS: Insulin Lispro 100 UNIT/ML 3 ML VIAL SUBCUT (21:05)
--- NOTE | 2023-08-02 21:33 | W.PM.IDCN ---
History of Present Illness Data of Consult Service Date: 08/02/23 Requesting physician: Melissa De León Primary Care Provider: Antony Pappas MD HPI Reason for consult: sepsis He presents with fever to 100.6 as well as tachycardia to 101. He had [facility] at home and [facility]NA replaced Martinez catheter and had pain and then confusion when removed.2 He went to ER and was going to be discharged on Cefdinir but got confused and had cultures and urine taken. Urine culture shows serratia and blood culture gram negative rods. He is feeling better today. Review of Systems Review of Systems: Yes all other systems are reviewed and are negative REPLACED BY [facility] Past Medical History Medical History Type 2 diabetes mellitus CHF (congestive heart failure) Hypertension Diabetes Asthma COPD (chronic obstructive pulmonary disease) CHF (congestive heart failure) Social History Social History Household Members: Family Housing: House Do you presently have visiting nurse or other home services: Yes Alcohol intake: current Alcohol intake frequency: holidays/special occasions only Alcohol type: beer Patient Tobacco Use Status: Former Tobacco user Smoked in Last 30 Days: No Second Hand Smoke Exposure: No Use of substances other than those prescribed or required for medical reasons: No Currently Displaying Signs/Symptoms of Drug Intoxication Withdrawal: No Any prior treatment program specific to substance use: No Have you been hit, kicked, punched, or otherwise hurt by someone within the past year? If so, by whom?: No Do you feel safe in your current relationship?: No Is there a partner from a previous relationship who is making you feel unsafe now?: No Are you made to feel afraid or neglected: No Advance Directives: No Advance Directives Information Provided: No Advance Directives Date on File: 03/13/22 Do you have thoughts of harming others: None Do you have a plan to hurt others: No Plan Recently lost weight without trying: No Eating poorly because of decreased appetite: No Nutrition Risks: No Nutritional Risk service: No Current occupational status: retired Meds Allergies Allergy/AdvReac Type Severity Reaction Status Date / Time No Known Allergies Allergy Verified 03/11/22 15:12 Active Medications: Current Medications Acetaminophen (Acetaminophen 325 Mg Tablet) 650 mg PO Q6H PRN PRN Reason: Pain, Mild (Pain Scale 1-3) Last Admin: 08/01/23 07:42 Dose: 650 mg Amlodipine Besylate (Amlodipine Besylate 2.5 Mg Tablet) 2.5 mg PO DAILY [facility]; Protocol Atorvastatin Calcium (Atorvastatin Calcium 80 Mg Tablet) 80 mg PO DAILY [facility] Last Admin: 08/02/23 09:05 Dose: 80 mg Calcium Carbonate (Calcium Carbonate 750 Mg Tab.Chew) 750 mg PO Q6H PRN PRN Reason: Heartburn Last Admin: 08/01/23 19:58 Dose: 750 mg Dextrose (Dextrose 50 % 25 Gm/50 Ml Syringe) 25 gm IVPUSH Q15M PRN; Protocol PRN Reason: per Hypoglycemia Standing Ord. Ergocalciferol (Ergocalciferol (Vitamin D2) 1,250 Mcg Capsule) 1,250 mcg PO Mo@0900 [facility] Last Admin: 08/02/23 09:05 Dose: 1,250 mcg Finasteride (Finasteride 5 Mg Tablet) 5 mg PO DAILY [facility] Last Admin: 08/02/23 09:05 Dose: 5 mg Gabapentin (Gabapentin 300 Mg Capsule) 300 mg PO BEDTIME [facility] Last Admin: 08/02/23 20:14 Dose: 300 mg Glucose (Glucose Gel 15 Gm Gel..Gram.) 15 gm PO Q15M PRN; Protocol PRN Reason: per Hypoglycemia Standing Ord. Heparin Sodium (Porcine) (Heparin Sodium,Porcine 5,000 Unit/Ml Vial) 5,000 unit SUBCUT Q12H [facility] Last Admin: 08/02/23 18:16 Dose: 5,000 unit Ceftriaxone Sodium 1 gm/ (Sodium Chloride) 50 mls @ 100 mls/hr IV Q24H [facility] Last Infusion: 08/02/23 16:14 Dose: Infused Insulin Glargine (Insulin Glargine,Hum.Rec.Anlog 100 Unit/Ml 10 Ml Vial) 52 unit SUBCUT DAILY [facility] Last Admin: 08/02/23 09:04 Dose: 52 unit Insulin Human Lispro (Insulin Lispro 100 Unit/Ml 3 Ml Vial) 0 unit SUBCUT QIDACHS [facility]; Protocol Last Admin: 08/02/23 21:05 Dose: 6 unit Metoprolol Succinate (Metoprolol Succinate Er 50 Mg Tab.Er.24h) 50 mg PO DAILY [facility]; Protocol Last Admin: 08/02/23 09:05 Dose: 50 mg Montelukast Sodium (Montelukast Sodium 10 Mg Tablet) 10 mg PO BEDTIME [facility] Last Admin: 08/02/23 20:14 Dose: 10 mg Ondansetron HCl (Ondansetron Hcl 4 Mg/2 Ml Vial) 4 mg IVPUSH Q8H PRN PRN Reason: Nausea and Vomiting Tamsulosin HCl (Tamsulosin Hcl 0.4 Mg Capsule) 0.4 mg PO BEDTIME LESLI Last Admin: 08/02/23 20:14 Dose: 0.4 mg Torsemide (Torsemide 20 Mg Tablet) 40 mg PO DAILY [facility]; Protocol Last Admin: 08/01/23 07:45 Dose: 40 mg Home Medications Medication Instructions Recorded Confirmed Last Taken Type albuterol sulfate 90 mcg/actuation 2 puff PO Q6H PRN wheezing 03/11/22 07/31/23 Unknown History aerosol inhaler amlodipine 2.5 mg tablet 1 tab PO DAILY 03/11/22 07/31/23 03/11/22 History aspirin 81 mg tablet,delayed 81 mg PO DAILY 03/11/22 07/31/23 03/11/22 History release atorvastatin 80 mg tablet 1 tab PO DAILY 03/11/22 07/31/23 03/11/22 History ergocalciferol (vitamin D2) 1,250 1 cap PO MO 03/11/22 07/31/23 03/09/22 History mcg (50,000 unit) capsule gabapentin 300 mg capsule 1 cap PO BEDTIME 03/11/22 07/31/23 03/10/22 History metoprolol succinate 50 mg 1 tab PO DAILY 03/11/22 07/31/23 03/11/22 History tablet,extended release 24 hr montelukast 10 mg tablet 1 tab PO DAILY 03/11/22 07/31/23 03/11/22 History dapagliflozin propanediol 5 mg 5 mg PO DAILY 07/31/23 07/31/23 Unknown History tablet (Farxiga) finasteride 5 mg tablet 5 mg PO DAILY 07/31/23 07/31/23 Unknown History glipizide 10 mg tablet 10 mg PO BID 07/31/23 07/31/23 Unknown History insulin degludec 200 unit/mL (3 74 unit subcut QAM 07/31/23 07/31/23 Unknown History mL) subcutaneous pen (Tresiba FlexTouch U-200 insulin) torsemide 20 mg tablet 40 mg PO DAILY 07/31/23 07/31/23 Unknown History Physical Exam Vital Signs: Vital Signs: Last Vital Signs Temp 98.9 F 08/02/23 19:38 Pulse 77 08/02/23 19:38 Resp 18 08/02/23 19:38 BP 130/70 08/02/23 19:38 Pulse Ox 97 08/02/23 19:38 O2 Del Method Room Air 08/02/23 19:38 BMI result Body Mass Index 25.6 Const: General: cooperative HEENT: Head: Yes normal to inspection Face and sinus: Yes normal facial exam Mouth: Normal oral and palatal mucosa present Teeth and gingiva: dentition normal Eyes: General: appearance normal, both eyes and all related structures Pupils: Equal, round and reactive pupils present Resp: Effort & Inspection: normal respiratory effort Cardio: Other: 2/6 NICKOLAS Rate: regular rate Rhythm: regular rhythm GI: Palpation (GI): Soft to palpation and nontender : General: Yes no CVA tenderness Back/Spine/Pelvis: Back: no CVA tenderness Skin: General skin exam: no rashes or lesions noted Neuro: General: moves all extremities Cranial nerves: Yes Equal, round and reactive pupils present Extrem: General: Yes normal to inspection Psych: Appearance: grossly normal Results Labs 08/01/23 05:38 08/02/23 05:31 Labs: BMP 08/02/23 05:31 Sodium 135 Potassium 4.7 Chloride 104 Carbon Dioxide 23 BUN 59 H Creatinine 3.61 H Calcium 8.9 Microbiology Microbiology Results: Microbiology 07/31/23 15:21 Blood - Venous Blood Culture - Preliminary Gram negative pedro pablo 07/31/23 15:14 Blood - Venous Blood Culture - Preliminary Gram negative pedro pablo 07/31/23 Unknown Urine Catheterized - Martinez Catheter Urine Culture - Final Serratia marcescens Assessment and Plan (1) Severe sepsis: Status: Acute He has likely urinary tract irritation likely leading to sepsis. He has serratia which may be difficult to treat at times but appears to be sensitive to cephalosporins (2) Acute UTI: Status: Acute Plan Would continue Ceftriaxone for now. Would check EKG and give po Levaquin if able for 14 days since organism may mutate. [facility] who was supposed to do cystoscopy on Wednesday as outpatient. Check echo with murmur.
[2023-08-03 03:39] VITALS: BP 126/58; PULSE 73; RESP 18; TEMP 37; O2SAT 95
[2023-08-03 03:50] LABS: Glucose, Whole Blood 115 mg/dL (60-115)
[2023-08-03] MEDS: Heparin Sodium,Porcine 5,000 UNIT/ML VIAL 5000 UNIT SUBCUT (05:48)
[2023-08-03 07:39] VITALS: BP 134/62; PULSE 81; RESP 17; TEMP 37.3; O2SAT 100
[2023-08-03 07:40] LABS: Glucose, Whole Blood 135 mg/dL (60-115)
[2023-08-03] MEDS: Finasteride 5 MG TABLET PO (08:28)
[2023-08-03] MEDS: Metoprolol Succinate ER 50 MG TAB.ER.24H PO (08:28)
[2023-08-03] MEDS: amLODIPine Besylate 2.5 MG TABLET PO (08:28)
[2023-08-03] MEDS: Atorvastatin Calcium 80 MG TABLET PO (08:28)
[2023-08-03] MEDS: Insulin Glargine,Hum.rec.anlog 100 UNIT/ML 10 ML VIAL 52 UNIT SUBCUT (08:28)
--- NOTE | 2023-08-03 09:08 | PM.DS ---
DS: Providers Provider Date of Service: 08/03/23 Date of admission: 07/31/23 17:55 Primary care physician: Antony Pappas MD Consults: 08/01/23 11:36 Consult to Infectious Diseases Routine Consulting Provider: [facility] [place] Reason for consultation: GNR bacteremia DS: Diagnosis Discharge Diagnosis (1) Severe sepsis: Status: Acute (2) Acute UTI: Status: Acute DS: Summary Hospital Course Hospital Course: history and physical as per admitting provider. 82-year-old man presented to the ER with complaints of difficulty with urination and pain after Martinez catheter placement. Patient had initially presented to the ER on 07/16 with urinary retention, Martinez catheter was placed and was discharged home to follow-up with urologist. Apparently visiting nurse had replaced the Martinez catheter and since then he had been having discomfort. In the ER it appeared that the catheter was ill placed and blocking urine from being able to enter the Martinez catheter. He had a new Martinez catheter placed on Likely from the manipulation he developed some hematuria and also probably from the ill placed catheter. He no longer had any issues with retention urine was flowing through the Martinez catheter. Patient did report some confusion and overall general malaise. In the ER he had leukopenia, tachycardia, to episodes of hypotension, he did receive 30 mL/kg IV fluid bolus and his blood pressure did respond. He was given a dose of IV Rocephin, ibuprofen, Augmentin, Tylenol. He will be admitted for further management and treatment related to sepsis secondary to urinary tract infection. 82-year-old man treated for UTI and bacteremia with cultures come back with Serratia Marcescens. While inpatient he was treated with IV Rocephin. Plan for discharge with Ceftin for 14 days as per Infectious Disease provider. He had episodes of hematuria which was secondary to will place Martinez catheter at home but hematuria quickly resolved during the 1st 24 hours after new Martinez catheter was placed. Due to history of urinary retention he will be discharged with his Martinez catheter to continue finasteride and tamsulosin. He does have follow-up with the urologist for prostate examination and possibly surgical procedure. He also initially had some episodes of hypotension which were related to the sepsis a sooner resolved with IV fluids and and Initiation of antibiotics. KAILEY and CKD stage 4. likely secondary to UTI, dehydration.Resolved, baseline Medius mellitus type 2. Continue home medications Time Attestation Discharge coordination time: Greater than 30 minutes Quality: Safe Use of Opioids Does Pt have an Active Cancer Diagnosis on the Problem List?: No Quality: Stroke Does the patient have a stroke diagnosis?: No Physical Exam Vital Signs: Vital Signs: Last Vital Signs Temp 99.1 F 08/03/23 07:39 Pulse 81 08/03/23 07:39 Resp 17 08/03/23 07:39 BP 134/62 08/03/23 07:39 Pulse Ox 100 08/03/23 07:39 O2 Del Method Room Air 08/03/23 07:39 BMI result Body Mass Index 25.6 Appearing in no acute distress head is normocephalic atraumatic eyes pupils are PERRLA sclera is anicteric mouth throat mucous membranes are intact and moist neck is supple no lymphadenopathy, no JVD noted lung sounds are clear to auscultation heart regular rate rhythm, clear S1, S2 positive bowel sounds, abdomen is soft, nontender neuro patient is alert x3, no focal deficits Martinez catheter in place DS: Data Data Completed and Pending Labs on day of discharge: Laboratory Results - last 24 hr 07/31/23 08/02/23 08/02/23 15:14 11:10 16:04 Smear Path Review SEE NOTE POC Glucose 264 H 234 H 08/02/23 08/03/23 08/03/23 20:29 03:46 07:35 Smear Path Review POC Glucose 263 H 115 135 H Discharge Plan Discharge Anticipated Discharge Date/Time: 08/03/23 09:03 Patient Disposition: Home Health Service Discharge Diagnosis: Serratia Marcescens UTI and bacteremia Referrals: Antony Pappas MD [Primary Care Provider] - 1 Week Discharge Medications: New cefuroxime axetil 500 mg tablet 500 mg PO BID Qty: 28 0RF Continued atorvastatin 80 mg tablet 1 tab PO DAILY metoprolol succinate 50 mg tablet extended release 24 hr 1 tab PO DAILY amlodipine 2.5 mg tablet 1 tab PO DAILY aspirin 81 mg Tablet,Delayed Release (Dr/Ec) 81 mg PO DAILY gabapentin 300 mg capsule 1 cap PO BEDTIME montelukast 10 mg tablet 1 tab PO DAILY ergocalciferol (vitamin D2) 1,250 mcg (50,000 unit) capsule 1 cap PO MO albuterol sulfate 90 mcg/actuation HFA aerosol inhaler 2 puff PO Q6H PRN (Reason: wheezing) tamsulosin [Flomax] 0.4 mg capsule 0.4 mg PO BEDTIME Qty: 30 0RF torsemide 20 mg tablet 40 mg PO DAILY glipizide 10 mg tablet 10 mg PO BID finasteride 5 mg tablet 5 mg PO DAILY insulin degludec [Tresiba FlexTouch U-200] 200 unit/mL (3 mL) insulin pen 74 unit subcut QAM Farxiga 5 mg tablet 5 mg PO DAILY Discharge Orders: Discharge Order (Routine); Ordered 08/03/23 Ordered By: Melissa De León Diet: Advance to usual diet Activity on Discharge: As tolerated Stand Alone Forms: Patient Portal Discharge page Activity Restrictions/Additional Instructions: Care Plan Goals: visiting nurse to follow for Martinez catheter management Health Concerns: Serratia Marcescens UTI and bacteremia Plan of Treatment: Follow-up with primary care provider as needed Follow-up with urologist after completion of antibiotic course Assessment: see discharge summary Patient Instructions: Urinary Tract Infection in Men (ED), Martinez Catheter Placement and Care (ED)
--- NOTE | 2023-08-03 09:17 | W.MHC.F2F ---
Service Date Service Date: 08/03/23 Encounter Date of encounter: 08/03/23 Reasons for Services Signs and symptoms assessed: sepsis secondary to UTI and bacteremia Serratia Marcescens urinary retention with Martinez catheter in place Reason for intermediate: CV/CP assess and/or care and other ( Martinez catheter care) Homebound: Leaving the home is medically contraindicated at this time without the asist of a device and/or another person due th the listed conditions above and below. Reason homebound: unsteady gait / fall risk Certification: Based on the above findings, I certify that this patient is confined to the home and needs intermittent intermediate care, physical therapy and/or speech therapy, or continues to need occupational therapy. The patient is under my care, and I have initiated the establishment of the plan of care. The patient will be followed by a physician who will periodically review the plan of care. Time Spent With Patient Time: Total time managing care of this patient today ____ minutes.
--- NOTE | 2023-08-03 09:35 | MHC.CM.PN ---
Addendum entered by Shakira Lundberg 08/03/23 09:47: DCS AND FACE TO FACE ORDERS SENT TO [facility] WITH NOTICE OF DC Original Note: PT CLEARED TO DC HOME WITH HOME HEALTH SERVICES PT WAS ACTIVE WITH [facility] [facility], HOWEVER THERE WAS A QUESTION TO IF PT WOULD WANT TO CONTINUE WITH THEM CM CALLED PTS DAUGHTER, HARVINDER [phone] SHE REPORTS THE PTS CM AT HIS PCP OFFICE SPOKE TO [facility] AND THEY HAVE AGREED TO CONTINUE PROVIDING SERVICES HOWEVER THEY WILL NOT SEND THE SAME RN. PT WILL DC HOME WITH [facility]UMPTION OF [facility] HE WILL NEED NEW FACE TO FACE ORDERS FAMILY TO TRANSPORT
[2023-08-03 11:24] LABS: Glucose, Whole Blood 163 mg/dL (60-115)
[2023-08-03] MEDS: Insulin Lispro 100 UNIT/ML 3 ML VIAL SUBCUT (12:21)
== END 2023-08-03 14:31 | disposition home health service (06) | DRG 872 ==
LOC: HO.ED 16:35 → HO.EDOVER 18:15 → HO.S3 19:54
PROVIDERS: Admitting Provider Nurse Practitioner Acute Care; Emergency Provider Student in an Organized Health Care Education/Training Program; PCP Internal Medicine; Visit Provider Nurse Practitioner Acute Care
DX: A41.9 Sepsis, unspecified organism (principal); N39.0 Urinary tract infection, site not specified; N18.4 Chronic kidney disease, stage 4 (severe); N17.9 Acute kidney failure, unspecified; T83.83XA Hemorrhage due to genitourinary prosthetic devices, implants and grafts, initial encounter; Y73.8 Miscellaneous gastroenterology and urology devices associated with adverse incidents, not elsewhere classified; E87.5 Hyperkalemia; R31.0 Gross hematuria; E11.22 Type 2 diabetes mellitus with diabetic chronic kidney disease; R65.20 Severe sepsis without septic shock; I95.9 Hypotension, unspecified; B96.89 Other specified bacterial agents as the cause of diseases classified elsewhere; E86.0 Dehydration; Z20.822 Contact with and (suspected) exposure to COVID-19; R33.9 Retention of urine, unspecified; Z23 Encounter for immunization; Z87.891 Personal history of nicotine dependence; Z79.4 Long term (current) use of insulin; Z79.82 Long term (current) use of aspirin; Z79.84 Long term (current) use of oral hypoglycemic drugs; Z79.899 Other long term (current) drug therapy
CPT/HCPCS: 0241U; 36415; 80048; 80053; 81001; 82550; 82947; 83605; 83735; 85007; 85025; 85027; 87040; 87077; 87086; 87088; 87186; 87205; 90686; 93005; 99285; J0696; J1644

== ENCOUNTER → 2023-07-31 13:18 | Outpatient (BNV) | payer MEDICARE, SELFPAY | PROVIDERS: Emergency Provider Student in an Organized Health Care Education/Training Program; Visit Provider Nurse Practitioner Acute Care | DX: A41.9 Sepsis, unspecified organism (principal); R65.20 Severe sepsis without septic shock; N18.4 Chronic kidney disease, stage 4 (severe); N39.0 Urinary tract infection, site not specified | CPT/HCPCS: 99223; 99232; 99239; G0180 ==

== ENCOUNTER 2023-07-31 17:55 | Outpatient (BNV) | payer MEDICARE, SELFPAY | END 2023-08-02 17:32 | PROVIDERS: Admitting Provider Nurse Practitioner Acute Care; Emergency Provider Student in an Organized Health Care Education/Training Program; PCP Internal Medicine; Visit Provider Internal Medicine Cardiovascular Disease | DX: R94.31 Abnormal electrocardiogram [ECG] [EKG] (principal) | CPT/HCPCS: 93010 ==

== ENCOUNTER → 2023-07-31 17:55 | Outpatient (BNV) | payer MEDICARE, SELFPAY | PROVIDERS: Admitting Provider Nurse Practitioner Acute Care; Emergency Provider Student in an Organized Health Care Education/Training Program; PCP Internal Medicine; Visit Provider Internal Medicine | DX: A41.9 Sepsis, unspecified organism (principal); R65.20 Severe sepsis without septic shock; N39.0 Urinary tract infection, site not specified | CPT/HCPCS: 99222 ==

== ENCOUNTER 2024-04-05 09:54 | Inpatient (IN) | payer MEDICARE, SELFPAY ==
[2024-04-05] VITALS (10 sets, daily range): BP systolic 110–149; BP diastolic 57–84; PULSE 69–78; RESP 15–25; TEMP 36.6; O2SAT 87–98; BMI 25.3
--- NOTE | ~2024-04-05 | XR_ITS ---
EXAMINATION: XR CHEST CLINICAL INFORMATION: Shortness of breath COMPARISON: Chest radiograph 03/11/2022 TECHNIQUE: 2 views of the chest were obtained. FINDINGS: Median sternotomy wires and mediastinal surgical clips. Aortic valvular prosthesis. Similar mild asymmetric elevation of the right hemidiaphragm. Central vascular congestion. Mild bilateral interstitial prominence. No pleural effusions or pneumothorax. The cardiac silhouette is prominent and unchanged. Aortic calcifications. No acute osseous abnormality. XR/XR chest 2V IMPRESSION: Central vascular congestion. Mild bilateral interstitial prominence which can be seen with mild edema. Electronically signed by: Kwesi James MD 04/05/2024 11:40 AM EDT
--- NOTE | 2024-04-05 09:56 | ECG_ITS ---
Test Reason : CHEST PAIN Blood Pressure : / mmHG Vent. Rate : 068 BPM Atrial Rate : 068 BPM P-R Int : 218 ms QRS Dur : 092 ms QT Int : 442 ms P-R-T Axes : 049 -20 150 degrees QTc Int : 469 ms Sinus rhythm with 1st degree A-V block Left ventricular hypertrophy with repolarization abnormality ( [place] product ) Cannot rule out Inferior infarct , age undetermined Abnormal ECG When compared with ECG of 02-AUG-2023 17:32, T wave inversion now evident in Anterior leads Referred By: Marleny Sosa Electronically Signed By:LISA TERESA
--- NOTE | 2024-04-05 10:21 | PC.NURSE ---
Pt to Xray.
[2024-04-05 10:48] LABS: Basophils Absolute Auto 0.1 X10*3/uL (0.0-0.2); Basophils Percent Auto 0.8 % (0-2); Eosinophils Percent Auto 9.4 % (0-4); Hematocrit 36.7 % (42.0-52.0); Hemoglobin 11.6 g/dl (14.0-18.0); Imm Gran Abs Auto 0.04 X10*3/uL (0.00-0.03); Imm Gran Pct Auto 0.4 % (0.0-0.4); Lymphocytes Absolute Auto 1.4 X10*3/uL (1.2-4.9); Lymphocytes Percent Auto 13.5 % (20-40); MANUAL DIFF FLAG NO; Mean Corpuscular HGB Conc 31.6 g/dl (31.0-36.0); Mean Corpuscular Hemoglobin 25.7 pg (27.0-33.0); Mean Corpuscular Volume 81.4 fL (80.0-98.0); Mean Platelet Volume 8.3 fL (9.4-12.4); Monocytes Percent Auto 9.1 % (2-11); Neutrophils Percent Auto 66.8 % (45-73); Platelet Count 219 X10*3/uL (160-400); Red Blood Count 4.51 X10*6/uL (4.60-5.80); Red Cell Distribution Width 16.6 % (11.0-16.0); White Blood Count 10.5 X10*3/uL (4.8-10.8)
--- NOTE | 2024-04-05 10:48 | PC.NURSE ---
Labs drawn and sent. PIV unable to be established x 2 attempts.
[2024-04-05 11:11] LABS: Troponin-I High Sensitivity 45.8 ng/L (<3.5-35.0)
--- NOTE | 2024-04-05 11:28 | ED.SOB ---
HPI - SOB/Dyspnea General Chief Complaint: Dyspnea Stated Complaint: SOB Time Seen by Provider: 04/05/24 10:15 History of Present Illness HPI Narrative: Patient is an 83-year-old male with a history of congestive heart failure. History of aortic valve replacement. History of having CABG in the past. Possible history of endocarditis. Patient was transferred to [facility] last time. Presents today with no fever no chills. Been having increasing shortness of breath. Worse on lying down worse on ambulation worse at night. Patient denies any chest pain. No diaphoresis. There has been no change to his medication. Patient is on furosemide 40 mg per day. History of chronic kidney disease. Related Data Home Medications ?Medication ?Instructions ?Recorded ?Confirmed albuterol sulfate 90 mcg/actuation 2 puff PO Q6H PRN wheezing 03/11/22 07/31/23 aerosol inhaler amlodipine 2.5 mg tablet 1 tab PO DAILY 03/11/22 07/31/23 aspirin 81 mg tablet,delayed 81 mg PO DAILY 03/11/22 07/31/23 release atorvastatin 80 mg tablet 1 tab PO DAILY 03/11/22 07/31/23 ergocalciferol (vitamin D2) 1,250 1 cap PO MO 03/11/22 07/31/23 mcg (50,000 unit) capsule gabapentin 300 mg capsule 1 cap PO BEDTIME 03/11/22 07/31/23 metoprolol succinate 50 mg 1 tab PO DAILY 03/11/22 07/31/23 tablet,extended release 24 hr montelukast 10 mg tablet 1 tab PO DAILY 03/11/22 07/31/23 dapagliflozin propanediol 5 mg 5 mg PO DAILY 07/31/23 07/31/23 tablet (Farxiga) finasteride 5 mg tablet 5 mg PO DAILY 07/31/23 07/31/23 glipizide 10 mg tablet 10 mg PO BID 07/31/23 07/31/23 insulin degludec 200 unit/mL (3 74 unit subcut QAM 07/31/23 07/31/23 mL) subcutaneous pen (Tresiba FlexTouch U-200 insulin) torsemide 20 mg tablet 40 mg PO DAILY 07/31/23 07/31/23 Previous Rx's ?Medication ?Instructions ?Recorded tamsulosin 0.4 mg capsule (Flomax) 0.4 mg PO BEDTIME #30 caps 07/13/23 cefuroxime axetil 500 mg tablet 500 mg PO BID #28 tabs 08/03/23 Allergies Allergy/AdvReac Type Severity Reaction Status Date / Time No Known Allergies Allergy Verified 04/05/24 10:01 Review of Systems Review of Systems: Positive shortness of breath Positive leg swelling Yes all other systems are reviewed and are negative [facility] Past Medical History Attestation statement: The following information was validated with the patient. Medical History Type 2 diabetes mellitus CHF (congestive heart failure) Hypertension Diabetes Asthma COPD (chronic obstructive pulmonary disease) CHF (congestive heart failure) Social History Social History Household Members: Family Housing: House Do you presently have visiting nurse or other home services: Yes Alcohol intake: current Alcohol intake frequency: holidays/special occasions only Alcohol type: beer Patient Tobacco Use Status: Former Tobacco user Second Hand Smoke Exposure: No Advance Directives: No Advance Directives Information Provided: Yes Advance Directives Date on File: 03/13/22 Do you have a plan to hurt others: No Plan service: No Current occupational status: retired Physical Exam Vital Signs: Vital Signs: Last Vital Signs Temp 97.9 F 04/05/24 10:54 Pulse 74 04/05/24 12:15 Resp 23 H 04/05/24 12:15 BP 132/81 04/05/24 12:15 Pulse Ox 93 04/05/24 12:15 O2 Del Method Room Air 04/05/24 12:15 BMI result Body Mass Index 25.3 Appearance: Alert. Oriented X3. No acute distress. Eyes: Pupils equal, round and reactive to light. ENT: Pharynx normal. Neck: Normal inspection. Neck supple. No lymph nodes noted. No crepitus CVS: Normal heart rate and rhythm. Pulses normal. Normal S1 and S2 Respiratory: No respiratory distress. Breath sounds normal. No Wheezing. No rales Abdomen: Soft and nontender. No rigidity. No distention. good BS x4 Skin: Skin warm and dry. Normal skin color. Normal skin turgor. Extremities: No lower extremity edema. Neurovascular intact to all extremities. No Lacerations. No Rash Neuro: Oriented X 3. No motor deficit. No sensory deficit. Moving all extermities. No slurred speech Medications Administered Discontinued Medications Generic Name Dose Route Start Last Admin Trade Name Stewart PRN Reason Stop Dose Admin Furosemide 40 mg 04/05/24 11:53 04/05/24 12:15 Furosemide 40 Mg/4 Ml Vial IVPUSH 04/05/24 11:54 40 mg ONCE ONE Administration Protocol Medical Decision Making Medical Decision Making [facility] Narrative: History of coronary artery disease status post bypass history of aortic valve replacement history of chronic kidney disease patient presented today with having increasing shortness of breath despite being on furosemide 40 mg. The dose of which has not changed. Patient denies any change in his diet. Been noticing increasing shortness breath especially with ambulation. Worse at night. Woke up middle night short of breath. Patient has had 2 lb weight gain. Has a history of congestive heart failure. My interpretation patient's chest x-ray consistent with congestive heart failure. Patient's BNP is over 10,000 consistent with congestive heart failure. Patient's oxygenation is about 90%. Additional water pill was given. Patient's creatinine is 4 which is slightly higher than baseline. Case discussed with patient's water and sewer systems supervisor here at [place]. Patient's primary water and sewer systems supervisor is at [facility]. Will admit and monitor overnight. Currently in stable condition. Differential Diagnosis Differential Diagnoses: The differential diagnosis associated with the presentation includes Congestive heart failure pneumonia pneumothorax, renal failure Admission/Observation Consideration of admission/observation: Escalation of care including admission/observation considered Consult Healthcare Provider Management of the patient was discussed with: Hospitalist and Stitcher Standard Machine (Cardiology) Lab Data [facility] Lab Attestation statement: I reviewed the patient's lab results. 04/05/24 10:38 04/05/24 11:20 Labs: Lab Results 04/05/24 04/05/24 04/05/24 Range/Units 10:38 10:39 11:20 WBC 10.5 (4.8-10.8) X10*3/uL RBC 4.51 L (4.60-5.80) X10*6/uL Hgb 11.6 L (14.0-18.0) g/dl Hct 36.7 L (42.0-52.0) % MCV 81.4 (80.0-98.0) fL MCH 25.7 L (27.0-33.0) pg MCHC 31.6 (31.0-36.0) g/dl RDW 16.6 H (11.0-16.0) % Plt Count 219 (160-400) X10*3/uL MPV 8.3 L (9.4-12.4) fL Immature Gran % (Auto) 0.4 (0.0-0.4) % Neut % (Auto) 66.8 (45-73) % Lymph % (Auto) 13.5 L (20-40) % [place] % (Auto) 9.1 (2-11) % Eos % (Auto) 9.4 H (0-4) % Baso % (Auto) 0.8 (0-2) % Lymph # (Auto) 1.4 (1.2-4.9) X10*3/uL [place] # (Auto) 1.0 (0.1-1.2) X10*3/uL Eos # (Auto) 1.0 H (0.0-0.4) X10*3/uL Baso # (Auto) 0.1 (0.0-0.2) X10*3/uL Abs Immat Gran (auto) 0.04 H (0.00-0.03) X10*3/uL Absolute Neuts (auto) 7.0 (2.0-8.3) x10*3/uL Absolute Nucleated RBC 0.000 (0.0-0.012) X10*3/uL Nucleated RBC % (auto) 0.0 (0.0-0.2) /100WBC Hold Blue Top SEE NOTE Sodium 141 (135-145) mmol/L Potassium 4.6 (3.3-5.1) mmol/L Chloride 107 (96-108) mmol/L Carbon Dioxide 22 (22-29) mmol/L Anion Gap 17 (12-20) BUN 53 H (9-16) mg/dL Creatinine 4.06 H* (0.5-1.4) mg/dL Estim Creat Clear Calc 11.4 Estimated GFR 14 Random Glucose 129 H (60-115) mg/dL Calcium 9.2 (8.4-10.2) mg/dL Total Bilirubin 1.2 H (0.0-1.0) mg/dL AST 16 (5-37) U/L ALT 18 (0-40) U/L Alkaline Phosphatase 93 (39-117) U/L Troponin I High Sens 45.8 H (<3.5-35.0) ng/L B-Natriuretic Peptide 41046 H (<100) pg/mL Total Protein 6.9 (6.5-8.0) g/dL Albumin 3.6 (3.5-5.0) g/dL Independent Interpretation I performed an independent interpretation of an: EKG (Sinus heart rate is 60 LA QRS QTC normal there is T-wave inversions and T-wave flattening noted diffusely) and Plain X-Ray (Congestive heart failure) Radiology Impression Discussion of test interpretation with radiology: I have reviewed the radiologist's reading. External Record Review External record reviewed: Inpatient record (Previous admission records reviewed) Chronic Conditions Patient?s care impacted by: Hypertension Coronary artery disease, congestive heart failure, cardiomyopathy Discharge Plan Discharge Clinical Impression: Congestive heart failure Patient Disposition: Admitted As Inpatient Prescriptions: No Action atorvastatin 80 mg tablet 1 tab PO DAILY metoprolol succinate 50 mg tablet extended release 24 hr 1 tab PO DAILY amlodipine 2.5 mg tablet 1 tab PO DAILY aspirin 81 mg Tablet,Delayed Release (Dr/Ec) 81 mg PO DAILY gabapentin 300 mg capsule 1 cap PO BEDTIME montelukast 10 mg tablet 1 tab PO DAILY ergocalciferol (vitamin D2) 1,250 mcg (50,000 unit) capsule 1 cap PO MO albuterol sulfate 90 mcg/actuation HFA aerosol inhaler 2 puff PO Q6H PRN (Reason: wheezing) tamsulosin [Flomax] 0.4 mg capsule 0.4 mg PO BEDTIME Qty: 30 0RF torsemide 20 mg tablet 40 mg PO DAILY glipizide 10 mg tablet 10 mg PO BID finasteride 5 mg tablet 5 mg PO DAILY insulin degludec [Tresiba FlexTouch U-200] 200 unit/mL (3 mL) insulin pen 74 unit subcut QAM Farxiga 5 mg tablet 5 mg PO DAILY cefuroxime axetil 500 mg tablet 500 mg PO BID Qty: 28 0RF Print Language: Persian
[2024-04-05 11:34] LABS: B Type Natriuretic Peptide 10034 pg/mL (<100)
[2024-04-05 11:52] LABS: Alanine Aminotransferase 18 U/L (0-40); Albumin Level 3.6 g/dL (3.5-5.0); Alkaline Phosphatase 93 U/L (39-117); Anion Gap 17 (12-20); Aspartate Amino Transferase 16 U/L (5-37); Bilirubin Total 1.2 mg/dL (0.0-1.0); Blood Urea Nitrogen 53 mg/dL (9-16); Calcium 9.2 mg/dL (8.4-10.2); Carbon Dioxide 22 mmol/L (22-29); Chloride 107 mmol/L (96-108); Creatinine Clr Calc Pharmacy 11.4; Estimated Glomerular Filt Rate 14; Glucose Random 129 mg/dL (60-115); Potassium 4.6 mmol/L (3.3-5.1); Sodium 141 mmol/L (135-145); Total Protein 6.9 g/dL (6.5-8.0)
[2024-04-05] MEDS: Furosemide 40 MG/4 ML VIAL IVPUSH ×2 (12:15→16:23)
--- NOTE | 2024-04-05 13:15 | PM.CNCAR ---
History of Present Illness History of Present Illness Date of Service: 04/05/24 Requesting physician: Roxane Holcomb Chief complaint: CHF Narrative: 83-year-old gentleman with background history of bioprosthetic aortic valve replacement and single-vessel bypass surgery, chronic kidney disease, previous bacteremia which was thought to be endocarditis and he received antibiotics and congestive heart failure/cardiomyopathy with severe LV dysfunction. He follows with Dr. Pepe [facility] at [facility]. He is presenting with shortness of breath ongoing for few days. He is saying that it progressively worsened and he is getting shortness of breath whether he walks or laid down. No PND episode. No chest discomfort. He has been compliant with medications. Blood pressure is well controlled. Blood workup reviewed which showed significant BNP elevation and kidney injury with creatinine 4 and BUN 53. [facility] Past Medical History Medical History Type 2 diabetes mellitus CHF (congestive heart failure) Hypertension Diabetes Asthma COPD (chronic obstructive pulmonary disease) CHF (congestive heart failure) Social History Social History Household Members: Family Housing: House Do you presently have visiting nurse or other home services: Yes Alcohol intake: current Alcohol intake frequency: holidays/special occasions only Alcohol type: beer Patient Tobacco Use Status: Former Tobacco user Second Hand Smoke Exposure: No Advance Directives: No Advance Directives Information Provided: Yes Advance Directives Date on File: 03/13/22 Do you have a plan to hurt others: No Plan service: No Current occupational status: retired Meds Allergies Allergy/AdvReac Type Severity Reaction Status Date / Time No Known Allergies Allergy Verified 04/05/24 10:01 Active Medications: Current Medications Furosemide (Furosemide 100 Mg/10 Ml Vial) 80 mg IVPUSH BID LESLI; Protocol Home Medications ?Medication ?Instructions ?Recorded ?Confirmed ?Last Taken ?Type albuterol sulfate 90 mcg/actuation 2 puff PO Q6H PRN wheezing 03/11/22 07/31/23 Unknown History aerosol inhaler amlodipine 2.5 mg tablet 1 tab PO DAILY 03/11/22 07/31/23 03/11/22 History aspirin 81 mg tablet,delayed 81 mg PO DAILY 03/11/22 07/31/23 03/11/22 History release atorvastatin 80 mg tablet 1 tab PO DAILY 03/11/22 07/31/23 03/11/22 History ergocalciferol (vitamin D2) 1,250 1 cap PO MO 03/11/22 07/31/23 03/09/22 History mcg (50,000 unit) capsule gabapentin 300 mg capsule 1 cap PO BEDTIME 03/11/22 07/31/23 03/10/22 History metoprolol succinate 50 mg 1 tab PO DAILY 03/11/22 07/31/23 03/11/22 History tablet,extended release 24 hr montelukast 10 mg tablet 1 tab PO DAILY 03/11/22 07/31/23 03/11/22 History dapagliflozin propanediol 5 mg 5 mg PO DAILY 07/31/23 07/31/23 Unknown History tablet (Farxiga) finasteride 5 mg tablet 5 mg PO DAILY 07/31/23 07/31/23 Unknown History glipizide 10 mg tablet 10 mg PO BID 07/31/23 07/31/23 Unknown History insulin degludec 200 unit/mL (3 74 unit subcut QAM 07/31/23 07/31/23 Unknown History mL) subcutaneous pen (Tresiba FlexTouch U-200 insulin) torsemide 20 mg tablet 40 mg PO DAILY 07/31/23 07/31/23 Unknown History Physical Exam Vital Signs: Vital Signs: Last Vital Signs Temp 97.9 F 04/05/24 10:54 Pulse 74 04/05/24 12:15 Resp 23 H 04/05/24 12:15 BP 132/81 04/05/24 12:15 Pulse Ox 93 04/05/24 12:15 O2 Del Method Room Air 04/05/24 12:15 BMI result Body Mass Index 25.3 GENERAL APPEARANCE: in no acute distress, pleasant. NECK: no carotid bruit, + + jugular venous distention. SKIN: no suspicious lesions, warm and dry. HEART: no murmurs, regular rate and rhythm. LUNGS: Bilateral crackles at bases. ABDOMEN: soft, nontender. EXTREMITIES: Trace edema. PERIPHERAL PULSES: equal. NEUROLOGIC: No gross deficits, AAO X 3 Objective Labs and Meds 04/05/24 10:38 04/05/24 11:20 Lab results: Laboratory Results - last 24 hr 04/05/24 04/05/24 04/05/24 10:38 10:39 11:20 WBC 10.5 RBC 4.51 L Hgb 11.6 L Hct 36.7 L MCV 81.4 MCH 25.7 L MCHC 31.6 RDW 16.6 H Plt Count 219 MPV 8.3 L Immature Gran % (Auto) 0.4 Neut % (Auto) 66.8 Lymph % (Auto) 13.5 L [place] % (Auto) 9.1 Eos % (Auto) 9.4 H Baso % (Auto) 0.8 Lymph # (Auto) 1.4 [place] # (Auto) 1.0 Eos # (Auto) 1.0 H Baso # (Auto) 0.1 Abs Immat Gran (auto) 0.04 H Absolute Neuts (auto) 7.0 Absolute Nucleated RBC 0.000 Nucleated RBC % (auto) 0.0 Hold Blue Top SEE NOTE Sodium 141 Potassium 4.6 Chloride 107 Carbon Dioxide 22 Anion Gap 17 BUN 53 H Creatinine 4.06 H* Estim Creat Clear Calc 11.4 Estimated GFR 14 Random Glucose 129 H Calcium 9.2 Total Bilirubin 1.2 H AST 16 ALT 18 Alkaline Phosphatase 93 Troponin I High Sens 45.8 H B-Natriuretic Peptide 86082 H Total Protein 6.9 Albumin 3.6 Imaging Radiologist's impression: Impressions Chest X-Ray 04/05/24 10:13 IMPRESSION: Central vascular congestion. Mild bilateral interstitial prominence which can be seen with mild edema. Electronically signed by: Kwesi James MD 04/05/2024 11:40 AM EDT Assessment and Plan (1) Congestive heart failure: Status: Acute (2) CKD (chronic kidney disease) stage 3, GFR 30-59 ml/min: Status: Acute Plan Pleasant 83 year gentleman with known history of coronary artery bypass surgery and aortic valve replacement with bioprosthetic valve, chronic kidney disease and congestive heart failure and severe LV dysfunction in the past. He is presenting with shortness of breath and clinically appears to be in heart failure. He has advanced kidney issues and creatinine is 4.06 and BUN is 53. Clinically he appears to be volume overloaded. He is warm all over and does not appear to be in low-flow state. Start Lasix 80 mg IV b.i.d.. Start home dose of [id number] should not be titrated currently. He is not on any Entresto/ARB due to advanced kidney problems. Unsure about utility of Farxiga with advanced kidney issues with estimated creatinine clearance 11.4. Thank you for allowing me to participate in the care of your patient. Please feel free to contact me if you have any questions. Procedures Date of Service Date of Service: 04/05/24
[2024-04-05 13:16] LABS: Troponin-I High Sensitivity 43.1 ng/L (<3.5-35.0)
[2024-04-05 13:32] LABS: Influenza A PCR NEGATIVE (Negative); Influenza B PCR NEGATIVE (Negative); Resp Syncy Virus RNA Qual PCR NEGATIVE (Negative); SARS COV2 PCR INHOUSE NEGATIVE (Negative)
--- NOTE | 2024-04-05 13:39 | PM.IMHP ---
History of Present Illness Date of Service: 04/05/24 Chief Complaint: shortness of breath The patient is an 83-year-old male with a past medical history of HFrEF, aortic valve replacement, diabetes, hypertension, COPD/asthma who presents to the emergency room with a 4 day history of progressive shortness of breath. Patient reports that his symptoms were initially mild and he attempted to use his p.r.n. oxygen at home but over the last several days this has progressed to the point where he is getting short of breath with minimal exertion. He reports lower extremity edema as well as orthopnea. He reports about a 2-3 lb weight gain. He denies any anginal symptoms. He reports a nonproductive cough. Denies any fevers or chills. 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 States that he was told that his heart remains weak but unchanged. In the emergency room patient was noted to be tachypneic with mildly increased work of breathing. Workup in the ED revealed a chest x-ray consistent with fluid overload as well as KAILEY on CKD as well as elevated BNP. The patient has been treated with IV diuretics but remains symptomatic and hence will be admitted for further care. Review of Systems Review of Systems: Negative except HPI/interval history. [facility] Medical History Type 2 diabetes mellitus CHF (congestive heart failure) Hypertension Diabetes Asthma COPD (chronic obstructive pulmonary disease) CHF (congestive heart failure) Social History Household Members: Family Housing: House Do you presently have visiting nurse or other home services: Yes Alcohol intake: current Alcohol intake frequency: holidays/special occasions only Alcohol type: beer Patient Tobacco Use Status: Former Tobacco user Second Hand Smoke Exposure: No Advance Directives: No Advance Directives Information Provided: Yes Advance Directives Date on File: 03/13/22 Do you have a plan to hurt others: No Plan service: No Current occupational status: retired Meds Allergies Allergy/AdvReac Type Severity Reaction Status Date / Time No Known Allergies Allergy Verified 04/05/24 10:01 Active Medications: Current Medications Furosemide (Furosemide 100 Mg/10 Ml Vial) 80 mg IVPUSH BID LESLI; Protocol Home Medications ?Medication ?Instructions ?Recorded ?Confirmed ?Last Taken ?Type albuterol sulfate 90 mcg/actuation 2 puff PO Q6H PRN wheezing 03/11/22 04/05/24 04/05/24 08:00 History aerosol inhaler amlodipine 2.5 mg tablet 1 tab PO DAILY 03/11/22 04/05/24 04/05/24 08:00 History aspirin 81 mg tablet,delayed 81 mg PO DAILY 03/11/22 04/05/24 04/05/24 08:00 History release atorvastatin 80 mg tablet 1 tab PO DAILY 03/11/22 04/05/24 04/05/24 08:00 History ergocalciferol (vitamin D2) 1,250 1 cap PO MO 03/11/22 04/05/24 04/03/24 History mcg (50,000 unit) capsule gabapentin 300 mg capsule 1 cap PO BEDTIME 03/11/22 04/05/24 04/04/24 History metoprolol succinate 50 mg 1 tab PO DAILY 03/11/22 04/05/24 04/05/24 08:00 History tablet,extended release 24 hr montelukast 10 mg tablet 1 tab PO DAILY 03/11/22 04/05/24 04/05/24 08:00 History dapagliflozin propanediol 5 mg 5 mg PO DAILY 07/31/23 04/05/24 04/05/24 08:00 History tablet (Farxiga) finasteride 5 mg tablet 5 mg PO DAILY 07/31/23 04/05/24 04/05/24 08:00 History glipizide 10 mg tablet 10 mg PO BID 07/31/23 04/05/24 04/05/24 08:00 History insulin degludec 200 unit/mL (3 76 unit subcut DAILY 07/31/23 04/05/24 04/05/24 08:00 History mL) subcutaneous pen (Tresiba FlexTouch U-200 insulin) torsemide 20 mg tablet 40 mg PO DAILY 07/31/23 04/05/24 04/05/24 08:00 History fluticasone fur. 200 mcg-umeclid 1 ea inhalation DAILY 04/05/24 04/05/24 04/05/24 History 62.5 mcg-vilant 25 mcg inhalat.powder (Trelegy Ellipta) Physical Exam Vital Signs and Narrative: Vital Signs: Last Vital Signs Temp 97.9 F 04/05/24 10:54 Pulse 74 04/05/24 12:15 Resp 23 H 04/05/24 12:15 BP 132/81 04/05/24 12:15 Pulse Ox 93 04/05/24 12:15 O2 Del Method Room Air 04/05/24 12:15 BMI result Body Mass Index 25.3 Const: Other: Constitutional - Awake and Alert, No apparent distress Eyes - PERRLA, EOMI Cardiovascular - S1S2; RRR; 1+ LE edema; +JVD; unable to lay supine Respiratory - rales at the b/l lung bases; RR in low 20s; Gastrointestinal - NT / ND; +BS; No rebound or guarding - No CVA tenderness Extremities - no calf tenderness bilaterally, 1+ edema Musculoskeletal - Normal inspection, normal ROM Skin - Warm/Dry Neurological - Alert & oriented x3, No focal deficit Psychological - Appropriate affect Results Labs 04/05/24 10:38 04/05/24 11:20 Labs: Laboratory Results - last 24 hr 04/05/24 04/05/24 04/05/24 10:38 10:39 11:20 MCV 81.4 MCH 25.7 L MCHC 31.6 RDW 16.6 H Plt Count 219 MPV 8.3 L Immature Gran % (Auto) 0.4 Neut % (Auto) 66.8 Lymph % (Auto) 13.5 L [place] % (Auto) 9.1 Eos % (Auto) 9.4 H Baso % (Auto) 0.8 Lymph # (Auto) 1.4 [place] # (Auto) 1.0 Eos # (Auto) 1.0 H Baso # (Auto) 0.1 Abs Immat Gran (auto) 0.04 H Absolute Neuts (auto) 7.0 Absolute Nucleated RBC 0.000 Nucleated RBC % (auto) 0.0 Hold Blue Top SEE NOTE Anion Gap 17 Estim Creat Clear Calc 11.4 Estimated GFR 14 Random Glucose 129 H Calcium 9.2 Total Bilirubin 1.2 H AST 16 ALT 18 Alkaline Phosphatase 93 Troponin I High Sens 45.8 H B-Natriuretic Peptide 27554 H Total Protein 6.9 Albumin 3.6 Influenza Type A (PCR) Influenza Type B (PCR) RSV RNA Qual (PCR) SARS-CoV-2 RNA (RT-PCR) 04/05/24 12:51 MCV MCH MCHC RDW Plt Count MPV Immature Gran % (Auto) Neut % (Auto) Lymph % (Auto) [place] % (Auto) Eos % (Auto) Baso % (Auto) Lymph # (Auto) [place] # (Auto) Eos # (Auto) Baso # (Auto) Abs Immat Gran (auto) Absolute Neuts (auto) Absolute Nucleated RBC Nucleated RBC % (auto) Hold Blue Top Anion Gap Estim Creat Clear Calc Estimated GFR Random Glucose Calcium Total Bilirubin AST ALT Alkaline Phosphatase Troponin I High Sens 43.1 H B-Natriuretic Peptide Total Protein Albumin Influenza Type A (PCR) NEGATIVE Influenza Type B (PCR) NEGATIVE RSV RNA Qual (PCR) NEGATIVE SARS-CoV-2 RNA (RT-PCR) NEGATIVE Imaging Radiologist's Impressions: Impressions Chest X-Ray 04/05/24 10:13 IMPRESSION: Central vascular congestion. Mild bilateral interstitial prominence which can be seen with mild edema. Electronically signed by: Kwesi James MD 04/05/2024 11:40 AM EDT RP Assessment and Plan (1) Congestive heart failure: Status: Acute Plan 83 yo M with HFrEF, aortic valve replacement, diabetes, asthma/COPD who presents to the hospital with a 4 day history of progressive shortness of breath. His presentation and workup in the emergency room is consistent with acute on chronic HFrEF exacerbation. He will be admitted for further workup and treatment. 1. 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 KAILEY on CKD 4 Baseline creatinine appears to be around 2.9-3.5 Monitor renal function closely Suspect cardiorenal 3. DM Hold orals, use sliding scale and long-acting if needed 4. Hypertension Continue baseline medications as appropriate 5. BPH Continue Flomax and finasteride Full Code DVT pptx, heparin Patient with acute on chronic heart failure along requiring IV diuretics in the setting of KAILEY on CKD requiring close monitoring of renal function therefore expected to require at a minimum 2 midnights in the hospital, hence will be admitted as inpatient. Quality Stroke Does the patient have a stroke diagnosis?: No VTE Prior VTE?: No VTE Risk Level:: Medical - moderate - high VTE Device Contraindication: Treatment Not Indicated VTE Drug Contraindication: N/A - Med Ordered
--- NOTE | 2024-04-05 14:13 | PHA.MEDREC ---
Addendum entered by Asia Smith RPh 04/05/24 14:29: reviewed by [facility]. Original Note: Pharmacy Consult ? Medication Reconciliation Pharmacy has completed the medication reconciliation. Spoke to patient and daughter over the phone with list of her dad up to date medications. The daughter was able to confirm her dads medications and dosing's. The patient was able to confirm his Tresiba insulin and he is doing 76 units daily and he said he took it this morning along with his morning medications. Patient also confirmed he is taking Metoprolol 50 mg and he is now taking it 1.5 tabs (75mg) daily. The daughter also state her dad is still taking finasteride 5mg and looking at claims he last tilled that 10/24 for 90 days and when I asked about that the daughter confirmed that they fill that at [facility] as far as they know he is still taking it.
--- NOTE | 2024-04-05 15:27 | PC.RT ---
RT called to bedside by RN. Pt has increased SOB, SATs 85-86% on RA, crackles in bases w/ lower leg edema. RT reached out to provider and requested bipap. RT awaiting provider response.
--- NOTE | 2024-04-05 15:30 | PC.NURSE ---
Pt's oxygen saturations noted to be 87% on RA, with increased work of breathing. Respiratory called to evaluate and advise.
--- NOTE | 2024-04-05 15:33 | PC.RT ---
Pt placed on O2 NC 2L, SATs improved to 93%.
[2024-04-05] MEDS: 0.9 % Sodium Chloride Flush 3 ML SYRINGE IVFLUSH (16:24)
[2024-04-05 17:00] LABS: Glucose, Whole Blood 139 mg/dL (60-115)
--- NOTE | 2024-04-05 20:00 | PC.NURSE ---
This typewriter ribbon winder assumed care of this Pt at 1900. Pt A&Ox3, denies any pain. Pt on 2L of O2 via NC. Pt using urinal at bedside independently.
[2024-04-05 21:30] LABS: Glucose, Whole Blood 210 mg/dL (60-115)
[2024-04-05] MEDS: Insulin Lispro 100 UNIT/ML 3 ML VIAL SUBCUT (22:29)
[2024-04-05] MEDS: Furosemide 100 MG/10 ML VIAL 80 MG IVPUSH (22:29)
[2024-04-05] MEDS: Gabapentin 300 MG CAPSULE PO (22:30)
[2024-04-06] VITALS (12 sets, daily range): BP systolic 112–196; BP diastolic 64–88; PULSE 67–90; RESP 14–22; TEMP 36.2–37.1; O2SAT 91–97
[2024-04-06] MEDS: 0.9 % Sodium Chloride Flush 3 ML SYRINGE IVFLUSH ×4 (00:11→20:31)
[2024-04-06] MEDS: Heparin Sodium,Porcine 5,000 UNIT/ML VIAL 5000 UNIT SUBCUT ×2 (02:45→16:53)
[2024-04-06 04:53] LABS: Hematocrit 38.2 % (42.0-52.0); Hemoglobin 11.9 g/dl (14.0-18.0); Mean Corpuscular HGB Conc 31.2 g/dl (31.0-36.0); Mean Corpuscular Hemoglobin 25.4 pg (27.0-33.0); Mean Corpuscular Volume 81.4 fL (80.0-98.0); Mean Platelet Volume 8.3 fL (9.4-12.4); Platelet Count 256 X10*3/uL (160-400); Red Blood Count 4.69 X10*6/uL (4.60-5.80); Red Cell Distribution Width 16.5 % (11.0-16.0); White Blood Count 11.9 X10*3/uL (4.8-10.8)
[2024-04-06 05:20] LABS: Alanine Aminotransferase 16 U/L (0-40); Albumin Level 3.7 g/dL (3.5-5.0); Alkaline Phosphatase 92 U/L (39-117); Anion Gap 18 (12-20); Aspartate Amino Transferase 16 U/L (5-37); Bilirubin Total 0.9 mg/dL (0.0-1.0); Blood Urea Nitrogen 54 mg/dL (9-16); Calcium 9.1 mg/dL (8.4-10.2); Carbon Dioxide 23 mmol/L (22-29); Chloride 108 mmol/L (96-108); Creatinine Clr Calc Pharmacy 11.1; Estimated Glomerular Filt Rate 14; Glucose Random 54 mg/dL (60-115); Potassium 3.5 mmol/L (3.3-5.1); Sodium 145 mmol/L (135-145)
[2024-04-06] MEDS: glucagon HCL 1 MG VIAL 0.5 MG IVPUSH (05:30)
--- NOTE | 2024-04-06 06:35 | PC.NURSE ---
Critical blood glucose of 54, provider Yvonne made aware, new order given per SEP. Recheck POC 117.
[2024-04-06 06:38] LABS: Glucose, Whole Blood 117 mg/dL (60-115)
[2024-04-06 07:14] LABS: Glucose, Whole Blood 219 mg/dL (60-115)
[2024-04-06] MEDS: Insulin Lispro 100 UNIT/ML 3 ML VIAL SUBCUT ×4 (08:00→20:31)
[2024-04-06] MEDS: Montelukast Sodium 10 MG TABLET PO (09:35)
[2024-04-06] MEDS: Aspirin Enteric Coated 81 MG TABLET.DR PO (09:35)
[2024-04-06] MEDS: amLODIPine Besylate 2.5 MG TABLET PO (09:35)
[2024-04-06] MEDS: Atorvastatin Calcium 80 MG TABLET PO (09:35)
[2024-04-06] MEDS: Furosemide 100 MG/10 ML VIAL 80 MG IVPUSH ×2 (09:36→20:30)
--- NOTE | 2024-04-06 10:51 | PM.PNCARD ---
Subjective Subjective Date of Service: 04/06/24 Interval history: Seen examined at bedside. Feeling little better than yesterday. Still volume overloaded. Creatinine is 4.17. Physical Exam Vital Signs: Last Vital Signs Temp 98.6 F 04/06/24 03:26 Pulse 85 04/06/24 09:38 Resp 22 H 04/06/24 09:38 BP 112/64 04/06/24 09:38 Pulse Ox 97 04/06/24 09:38 O2 Del Method Nasal Cannula 04/06/24 09:38 O2 Flow Rate 2 04/06/24 09:38 BMI result Body Mass Index 25.3 GENERAL APPEARANCE: in no acute distress, pleasant. NECK: no carotid bruit, + jugular venous distention. SKIN: no suspicious lesions, warm and dry. HEART: no murmurs, regular rate and rhythm. LUNGS: Few crackles at bases. ABDOMEN: soft, nontender. EXTREMITIES: Trace edema. PERIPHERAL PULSES: equal. NEUROLOGIC: No gross deficits, AAO X 3 Objective Labs and Meds 04/06/24 04:13 04/06/24 04:13 Lab results: Laboratory Results - last 24 hr 04/05/24 04/05/24 04/05/24 10:38 11:20 12:51 WBC RBC Hgb Hct MCV MCH MCHC RDW Plt Count MPV Absolute Nucleated RBC Nucleated RBC % (auto) Sodium 141 Potassium 4.6 Chloride 107 Carbon Dioxide 22 Anion Gap 17 BUN 53 H Creatinine 4.06 H* Estim Creat Clear Calc 11.4 Estimated GFR 14 POC Glucose Random Glucose 129 H Calcium 9.2 Total Bilirubin 1.2 H AST 16 ALT 18 Alkaline Phosphatase 93 Troponin I High Sens 45.8 H 43.1 H B-Natriuretic Peptide 87611 H Total Protein 6.9 Albumin 3.6 Influenza Type A (PCR) NEGATIVE Influenza Type B (PCR) NEGATIVE RSV RNA Qual (PCR) NEGATIVE SARS-CoV-2 RNA (RT-PCR) NEGATIVE 04/05/24 04/05/24 04/06/24 16:54 21:24 04:13 WBC 11.9 H RBC 4.69 Hgb 11.9 L Hct 38.2 L MCV 81.4 MCH 25.4 L MCHC 31.2 RDW 16.5 H Plt Count 256 MPV 8.3 L Absolute Nucleated RBC 0.000 Nucleated RBC % (auto) 0.0 Sodium 145 Potassium 3.5 D Chloride 108 Carbon Dioxide 23 Anion Gap 18 BUN 54 H Creatinine 4.17 H* Estim Creat Clear Calc 11.1 Estimated GFR 14 POC Glucose 139 H 210 H Random Glucose 54 L* Calcium 9.1 Total Bilirubin 0.9 AST 16 ALT 16 Alkaline Phosphatase 92 Troponin I High Sens B-Natriuretic Peptide Total Protein 7.0 Albumin 3.7 Influenza Type A (PCR) Influenza Type B (PCR) RSV RNA Qual (PCR) SARS-CoV-2 RNA (RT-PCR) 04/06/24 04/06/24 05:34 07:10 WBC RBC Hgb Hct MCV MCH MCHC RDW Plt Count MPV Absolute Nucleated RBC Nucleated RBC % (auto) Sodium Potassium Chloride Carbon Dioxide Anion Gap BUN Creatinine Estim Creat Clear Calc Estimated GFR POC Glucose 117 H 219 H Random Glucose Calcium Total Bilirubin AST ALT Alkaline Phosphatase Troponin I High Sens B-Natriuretic Peptide Total Protein Albumin Influenza Type A (PCR) Influenza Type B (PCR) RSV RNA Qual (PCR) SARS-CoV-2 RNA (RT-PCR) Imaging Radiologist's impression: Impressions Chest X-Ray 04/05/24 10:13 IMPRESSION: Central vascular congestion. Mild bilateral interstitial prominence which can be seen with mild edema. Electronically signed by: Kwesi James MD 04/05/2024 11:40 AM EDT RP Progress Note: A&P Assessment and plan (1) Congestive heart failure: Status: Acute (2) CKD (chronic kidney disease) stage 3, GFR 30-59 ml/min: Status: Acute Plan 83-year-old gentleman presenting for acute on chronic congestive heart failure. He has known history of cardiomyopathy. He has previous history of aortic valve replacement and single-vessel bypass surgery. He has advanced CKD. Clinically continues to be volume overloaded. I think we continue diuretics as before. He has creatinine of 4.17 BUN of 54 today. There is no significant change in creatinine clearance so far. He is not on any significant neural hormonal medications due to kidney issues. Also with this level of CKD use of SGLT2 inhibitors may not be very helpful. We will follow along with you. Thank you for allowing me to participate in the care of your patient. Please feel free to contact me if you have any questions. Time Spent With Patient Time: Total time managing care of this patient today ____ minutes. Progress Note: Quality Stroke Does the patient have a stroke diagnosis?: No Procedures Date of Service Date of Service: 04/06/24
[2024-04-06] MEDS: Fluticasone/Umeclidinium/Vilanterol 200/62.5/25 BLST.W.DEV 1 PUFF INHALE (10:54)
[2024-04-06 11:44] LABS: Glucose, Whole Blood 153 mg/dL (60-115)
--- NOTE | 2024-04-06 12:25 | MHC.CM.PN ---
CM met with Patient at bedside and addressed IMM with him, providing Patient with the original and a copy has been placed on the chart. Patient lives in a house with his Daughter/HCP/Denia and he recently purchased a cane to assist with mobility. Home/self care is the goal and CM has initiated and will follow for dc planning. PC is Dr. Antony Pappas and Daughter will transport to home.
--- NOTE | 2024-04-06 14:25 | HO.PM.IMPN ---
Subjective Subjective Date of Service: 04/06/24 Interval History: Seen and examined this morning Follow-up for fluid overload Reporting less shortness of breath Review of Systems Review of Systems: Yes all other systems are reviewed and are negative Constitutional Constitutional: Denies chills and Denies fever(s) Cardiovascular Cardiovascular: Denies chest pain Physical Exam Vital Signs: Vital Signs: Last Vital Signs Temp 97.2 F 04/06/24 12:00 Pulse 80 04/06/24 12:00 Resp 14 04/06/24 12:00 BP 133/88 04/06/24 12:00 Pulse Ox 95 04/06/24 12:00 O2 Del Method Room Air 04/06/24 12:00 O2 Flow Rate 2 04/06/24 09:38 BMI result Body Mass Index 25.3 Const: General: cooperative, comfortable, alert and awake Nutritional Appearance: average body habitus Resp: Effort & Inspection: normal respiratory effort, able to speak in complete sentences, no respiratory distress and no use of accessory muscles Cardio: Rate: regular rate GI: Inspection: No distended Palpation (GI): Soft to palpation Neuro: General: moves all extremities and CN's II-XI intact bilaterally Extrem: General: Yes no pedal edema Objective Data Active Medications Acetaminophen (Acetaminophen 325 Mg Tablet) 650 mg PO Q6H PRN PRN Reason: Pain, Mild (Pain Scale 1-3), fever or headache Amlodipine Besylate (Amlodipine Besylate 2.5 Mg Tablet) 2.5 mg PO DAILY [facility]; Protocol Last Admin: 04/06/24 09:35 Dose: 2.5 mg Documented By: RANDI Aspirin (Aspirin Enteric Coated 81 Mg Tablet.) 81 mg PO DAILY [facility] Last Admin: 04/06/24 09:35 Dose: 81 mg Documented By: RANDI Atorvastatin Calcium (Atorvastatin Calcium 80 Mg Tablet) 80 mg PO DAILY [facility] Last Admin: 04/06/24 09:35 Dose: 80 mg Documented By: RANDI Calcium Carbonate (Calcium Carbonate 750 Mg Tab.Chew) 750 mg PO Q4H PRN PRN Reason: Heartburn Fluticasone/Umeclidinium/Vilanterol (Fluticasone/Umeclidinium/Vilanterol 200/62.5/25 Blst.W.Dev) 1 puff INHALE RDAILY [facility] Last Admin: 04/06/24 10:54 Dose: 1 puff Documented By: ALYCIA Furosemide (Furosemide 100 Mg/10 Ml Vial) 80 mg IVPUSH BID [facility]; Protocol Last Admin: 04/06/24 09:36 Dose: 80 mg Documented By: RANDI Gabapentin (Gabapentin 300 Mg Capsule) 300 mg PO BEDTIME [facility] Last Admin: 04/05/24 22:30 Dose: 300 mg Documented By: GEORGETTE Heparin Sodium (Porcine) (Heparin Sodium,Porcine 5,000 Unit/Ml Vial) 5,000 unit SUBCUT Q12H [facility] Last Admin: 04/06/24 02:45 Dose: 5,000 unit Documented By: GEORGETTE Insulin Human Lispro (Insulin Lispro 100 Unit/Ml 3 Ml Vial) 0 unit SUBCUT QIDACHS [facility]; Protocol Last Admin: 04/06/24 12:49 Dose: 2 unit Documented By: RICK Magnesium Hydroxide (Milk Of Magnesia 30 Ml Oral.Susp) 30 ml PO DAILY PRN PRN Reason: Constipation Melatonin (Melatonin 3 Mg Tablet) 6 mg PO BEDTIME PRN PRN Reason: Insomnia Montelukast Sodium (Montelukast Sodium 10 Mg Tablet) 10 mg PO DAILY [facility] Last Admin: 04/06/24 09:35 Dose: 10 mg Documented By: RANDI Ondansetron HCl (Ondansetron Hcl 4 Mg/2 Ml Vial) 4 mg IVPUSH Q8H PRN PRN Reason: Nausea and Vomiting Sodium Chloride (0.9 % Sodium Chloride Flush 3 Ml Syringe) 3 ml IVFLUSH QSHIFT [facility] Last Admin: 04/06/24 08:03 Dose: 3 ml Documented By: RANDI Labs 04/06/24 04:13 04/06/24 04:13 Labs: Laboratory Results - last 24 hr 04/05/24 04/05/24 04/06/24 16:54 21:24 04:13 MCV 81.4 MCH 25.4 L MCHC 31.2 RDW 16.5 H Plt Count 256 MPV 8.3 L Absolute Nucleated RBC 0.000 Nucleated RBC % (auto) 0.0 Anion Gap 18 Estim Creat Clear Calc 11.1 Estimated GFR 14 POC Glucose 139 H 210 H Random Glucose 54 L* Calcium 9.1 Total Bilirubin 0.9 AST 16 ALT 16 Alkaline Phosphatase 92 Total Protein 7.0 Albumin 3.7 04/06/24 04/06/24 04/06/24 05:34 07:10 11:19 MCV MCH MCHC RDW Plt Count MPV Absolute Nucleated RBC Nucleated RBC % (auto) Anion Gap Estim Creat Clear Calc Estimated GFR POC Glucose 117 H 219 H 153 H Random Glucose Calcium Total Bilirubin AST ALT Alkaline Phosphatase Total Protein Albumin Assessment and Plan (1) Congestive heart failure: Status: Acute (2) CKD (chronic kidney disease) stage 3, GFR 30-59 ml/min: Status: Acute Plan 83 yo M with HFrEF, aortic valve replacement, diabetes, asthma/COPD who presents to the hospital with a 4 day history of progressive shortness of breath. His presentation and workup in the emergency room is consistent with acute on chronic HFrEF exacerbation. He will be admitted for further workup and treatment. 1. 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 KAILEY on CKD 4 Baseline creatinine appears to be around 2.9-3.5 Monitor renal function closely Suspect cardiorenal 3. DM with episode of hypoglycemia Hypoglycemia noted on BMP, got glucagon; POCs stable On Tresiba, glipizide, Farxiga at baseline Hold orals, use sliding scale 4. Hypertension Continue norvasc Metoprolol on hold Full Code DVT pptx, heparin Patient with acute on chronic heart failure along requiring IV diuretics in the setting of KAILEY on CKD requiring close monitoring of renal function therefore expected to require at a minimum 2 midnights in the hospital, hence will be admitted as inpatient. Quality Stroke Does the patient have a stroke diagnosis?: No VTE Prior VTE?: No VTE Risk Level:: Medical - moderate - high VTE Device Contraindication: Treatment Not Indicated VTE Drug Contraindication: N/A - Med Ordered
[2024-04-06 16:40] LABS: Glucose, Whole Blood 259 mg/dL (60-115)
[2024-04-06 20:17] LABS: Glucose, Whole Blood 273 mg/dL (60-115)
[2024-04-06] MEDS: Gabapentin 300 MG CAPSULE PO (20:30)
[2024-04-07] VITALS (7 sets, daily range): BP systolic 121–145; BP diastolic 64–101; PULSE 69–93; RESP 18–20; TEMP 36.2–37.1; O2SAT 94–97
[2024-04-07] MEDS: Heparin Sodium,Porcine 5,000 UNIT/ML VIAL 5000 UNIT SUBCUT ×2 (03:46→15:12)
[2024-04-07 07:06] LABS: Anion Gap 19 (12-20); Blood Urea Nitrogen 54 mg/dL (9-16); Calcium 9.5 mg/dL (8.4-10.2); Carbon Dioxide 25 mmol/L (22-29); Chloride 105 mmol/L (96-108); Potassium 3.6 mmol/L (3.3-5.1); Sodium 145 mmol/L (135-145)
[2024-04-07 07:10] LABS: Creatinine Clr Calc Pharmacy 11.6; Estimated Glomerular Filt Rate 14; Glucose Random 56 mg/dL (60-115)
[2024-04-07 07:20] LABS: Glucose, Whole Blood 66 mg/dL (60-115)
[2024-04-07 07:41] LABS: Estimated Average Glucose 151 mg/dL; Hemoglobin A1c % 6.9 % (<6.0)
[2024-04-07] MEDS: amLODIPine Besylate 2.5 MG TABLET PO (07:53)
[2024-04-07] MEDS: Aspirin Enteric Coated 81 MG TABLET.DR PO (07:53)
[2024-04-07] MEDS: Atorvastatin Calcium 80 MG TABLET PO (07:53)
[2024-04-07] MEDS: Furosemide 100 MG/10 ML VIAL 80 MG IVPUSH ×2 (07:54→20:40)
[2024-04-07] MEDS: Montelukast Sodium 10 MG TABLET PO (07:54)
[2024-04-07] MEDS: 0.9 % Sodium Chloride Flush 3 ML SYRINGE IVFLUSH ×2 (07:59→15:14)
--- NOTE | 2024-04-07 10:27 | MHC.CM.PN ---
Per ROUNDS discussion, Patient is not yet medically cleared for dc (still diuresing); home is the goal and cM will continue to follow.
[2024-04-07 11:22] LABS: Glucose, Whole Blood 240 mg/dL (60-115)
[2024-04-07] MEDS: Insulin Lispro 100 UNIT/ML 3 ML VIAL SUBCUT ×2 (12:01→17:22)
--- NOTE | 2024-04-07 12:01 | HO.PM.IMPN ---
Subjective Subjective Date of Service: 04/07/24 Interval History: Seen and examined this morning Follow-up for CHF Shortness of breath improving, no chest pain Blood sugar low this a.m. Review of Systems Review of Systems: Yes all other systems are reviewed and are negative Constitutional Constitutional: Denies chills and Denies fever(s) ENT Ears, Nose, Mouth, and Throat: Denies dizziness Cardiovascular Cardiovascular: Denies chest pain, Denies palpitations and Denies dyspnea Respiratory Respiratory: Denies cough and Denies dyspnea Neurologic Neurologic: Denies dizziness Endocrine Endocrine: Denies palpitations Physical Exam Vital Signs: Vital Signs: Last Vital Signs Temp 97.3 F 04/07/24 11:13 Pulse 75 04/07/24 11:13 Resp 18 04/07/24 11:13 BP 130/64 04/07/24 11:13 Pulse Ox 95 04/07/24 11:13 O2 Del Method Room Air 04/07/24 11:13 O2 Flow Rate 2 04/06/24 09:38 BMI result Body Mass Index 25.3 Const: General: cooperative, comfortable, alert and awake Nutritional Appearance: average body habitus Resp: Effort & Inspection: normal respiratory effort, able to speak in complete sentences, no respiratory distress and no use of accessory muscles Auscultation: clear to auscultation bilaterally Cardio: Rate: regular rate GI: Inspection: No distended Palpation (GI): Soft to palpation Neuro: General: moves all extremities and CN's II-XI intact bilaterally Extrem: General: Yes no pedal edema Objective Data Active Medications Acetaminophen (Acetaminophen 325 Mg Tablet) 650 mg PO Q6H PRN PRN Reason: Pain, Mild (Pain Scale 1-3), fever or headache Amlodipine Besylate (Amlodipine Besylate 2.5 Mg Tablet) 2.5 mg PO DAILY [facility]; Protocol Last Admin: 04/07/24 07:53 Dose: 2.5 mg Documented By: LEXI Aspirin (Aspirin Enteric Coated 81 Mg Tablet.) 81 mg PO DAILY [facility] Last Admin: 04/07/24 07:53 Dose: 81 mg Documented By: LEXI Atorvastatin Calcium (Atorvastatin Calcium 80 Mg Tablet) 80 mg PO DAILY [facility] Last Admin: 04/07/24 07:53 Dose: 80 mg Documented By: LEXI Calcium Carbonate (Calcium Carbonate 750 Mg Tab.Chew) 750 mg PO Q4H PRN PRN Reason: Heartburn Fluticasone/Umeclidinium/Vilanterol (Fluticasone/Umeclidinium/Vilanterol 200/62.5/25 Blst.W.Dev) 1 puff INHALE RDAILY [facility] Last Admin: 04/07/24 07:21 Dose: Not Given Documented By: NORM Non-Admin Reason: pt not in room Furosemide (Furosemide 100 Mg/10 Ml Vial) 80 mg IVPUSH BID [facility]; Protocol Last Admin: 04/07/24 07:54 Dose: 80 mg Documented By: LEXI Gabapentin (Gabapentin 300 Mg Capsule) 300 mg PO BEDTIME [facility] Last Admin: 04/06/24 20:30 Dose: 300 mg Documented By: CHRISTINA Glucose (Glucose Gel 15 Gm Gel..Gram.) 15 gm PO Q15M PRN; Protocol PRN Reason: per Hypoglycemia Standing Ord. Heparin Sodium (Porcine) (Heparin Sodium,Porcine 5,000 Unit/Ml Vial) 5,000 unit SUBCUT Q12H [facility] Last Admin: 04/07/24 03:46 Dose: 5,000 unit Documented By: CHRISTINA Hydralazine HCl (Hydralazine Hcl 25 Mg Tablet) 25 mg PO TID [facility]; Protocol Dextrose (D10) 250 mls @ 750 mls/hr IV Q15M PRN; Protocol PRN Reason: per Hypoglycemia Standing Ord. Insulin Human Lispro (Insulin Lispro 100 Unit/Ml 3 Ml Vial) 0 unit SUBCUT TIDAC [facility]; Protocol Magnesium Hydroxide (Milk Of Magnesia 30 Ml Oral.Susp) 30 ml PO DAILY PRN PRN Reason: Constipation Melatonin (Melatonin 3 Mg Tablet) 6 mg PO BEDTIME PRN PRN Reason: Insomnia Montelukast Sodium (Montelukast Sodium 10 Mg Tablet) 10 mg PO DAILY [facility] Last Admin: 04/07/24 07:54 Dose: 10 mg Documented By: LEXI Ondansetron HCl (Ondansetron Hcl 4 Mg/2 Ml Vial) 4 mg IVPUSH Q8H PRN PRN Reason: Nausea and Vomiting Sodium Chloride (0.9 % Sodium Chloride Flush 3 Ml Syringe) 3 ml IVFLUSH QSHIFT [facility] Last Admin: 04/07/24 07:59 Dose: 3 ml Documented By: LEXI Labs 04/06/24 04:13 04/07/24 06:02 Labs: Laboratory Results - last 24 hr 04/06/24 04/06/24 04/06/24 04:13 16:35 20:13 Anion Gap Estim Creat Clear Calc Estimated GFR POC Glucose 259 H 273 H Random Glucose Estimat Average Glucose 151 Hemoglobin A1c % 6.9 H Calcium 04/07/24 04/07/24 04/07/24 06:02 07:08 11:15 Anion Gap 19 Estim Creat Clear Calc 11.6 Estimated GFR 14 POC Glucose 66 240 H Random Glucose 56 L* Estimat Average Glucose Hemoglobin A1c % Calcium 9.5 Assessment and Plan (1) Congestive heart failure: Status: Acute (2) KAILEY (acute kidney injury): Status: Acute Plan 83 yo M with HFrEF, aortic valve replacement, diabetes, asthma/COPD who presents to the hospital with a 4 day history of progressive shortness of breath. His presentation and workup in the emergency room is consistent with acute on chronic HFrEF exacerbation. He will be admitted for further workup and treatment. 1. Acute on chronic HFrEF Last echo in our system is from 2021 showing EF of 25-30% continue IV Lasix Follow Intake and output, daily weights, tele monitor 2. KAILEY on CKD 4 Baseline creatinine appears to be around 2.9-3.5, down to 4.01 today Monitor renal function closely Suspect cardiorenal 3. DM with hypoglycemia Hypoglycemia noted on am labs x2 days in a row. pt asymptomatic reports low blood sugars in the morning at home HbA1c 6.9 - on Tresiba, glipizide, Farxiga at baseline reduce sliding scale to TID to avoid evening coverage follow POCs 4. Hypertension Continue norvasc hydralazine started Metoprolol on hold asthma/copd No acute exacerbation Continue baseline inhaler Full Code DVT pptx, heparin Requires ongoing inpatient stay for management of acute CHF requiring IV diuretics in the setting of KAILEY on CKD requiring close monitoring of renal function Quality Stroke Does the patient have a stroke diagnosis?: No VTE Prior VTE?: No VTE Risk Level:: Medical - moderate - high VTE Device Contraindication: Treatment Not Indicated VTE Drug Contraindication: N/A - Med Ordered
--- NOTE | 2024-04-07 12:45 | PM.PNCARD ---
Subjective Subjective Date of Service: 04/07/24 Interval history: Seen and examined at bedside. Feeling better Physical Exam Vital Signs: Last Vital Signs Temp 97.3 F 04/07/24 11:13 Pulse 75 04/07/24 11:13 Resp 18 04/07/24 11:13 BP 130/64 04/07/24 11:13 Pulse Ox 95 04/07/24 11:13 O2 Del Method Room Air 04/07/24 11:13 O2 Flow Rate 2 04/06/24 09:38 BMI result Body Mass Index 25.3 GENERAL APPEARANCE: in no acute distress, pleasant. NECK: no carotid bruit, + jugular venous distention. SKIN: no suspicious lesions, warm and dry. HEART: no murmurs, regular rate and rhythm. LUNGS: CTABL. ABDOMEN: soft, nontender. EXTREMITIES: No edema. PERIPHERAL PULSES: equal. NEUROLOGIC: No gross deficits, AAO X 3 Objective Labs and Meds 04/06/24 04:13 04/07/24 06:02 Lab results: Laboratory Results - last 24 hr 04/06/24 04/06/24 04/06/24 04:13 16:35 20:13 Sodium Potassium Chloride Carbon Dioxide Anion Gap BUN Creatinine Estim Creat Clear Calc Estimated GFR POC Glucose 259 H 273 H Random Glucose Estimat Average Glucose 151 Hemoglobin A1c % 6.9 H Calcium 04/07/24 04/07/24 04/07/24 06:02 07:08 11:15 Sodium 145 Potassium 3.6 Chloride 105 Carbon Dioxide 25 Anion Gap 19 BUN 54 H Creatinine 4.01 H* Estim Creat Clear Calc 11.6 Estimated GFR 14 POC Glucose 66 240 H Random Glucose 56 L* Estimat Average Glucose Hemoglobin A1c % Calcium 9.5 Progress Note: A&P Assessment and plan (1) Congestive heart failure: Status: Acute (2) CKD (chronic kidney disease) stage 3, GFR 30-59 ml/min: Status: Acute Plan 83-year-old gentleman presenting for acute on chronic congestive heart failure. He has known history of cardiomyopathy. He has previous history of aortic valve replacement and single-vessel bypass surgery. He has advanced CKD. Clinically continues to be volume overloaded. Change to Torsemide tomorrow, 40 mg BID. Adding hydralazine 25 TID. Can resume Farxiga after discharge. We will follow along with you. Thank you for allowing me to participate in the care of your patient. Please feel free to contact me if you have any questions. Time Spent With Patient Time: Total time managing care of this patient today ____ minutes. Progress Note: Quality Stroke Does the patient have a stroke diagnosis?: No Procedures Date of Service Date of Service: 04/07/24
[2024-04-07] MEDS: hydrALAZINE HCl 25 MG TABLET PO ×2 (15:12→20:42)
[2024-04-07 16:32] LABS: Glucose, Whole Blood 282 mg/dL (60-115)
[2024-04-07] MEDS: Magnesium Sulfate/H2O 2 GM/50 ML PIGGYBACK IV (18:37)
[2024-04-07] MEDS: Potassium Chloride ER 20 MEQ TAB.ER.PRT PO (18:44)
[2024-04-07] MEDS: Metoprolol Succinate ER 50 MG TAB.ER.24H PO (18:45)
[2024-04-07 19:01] LABS: Magnesium 2.3 mg/dL (1.6-2.6)
--- NOTE | 2024-04-07 19:01 | PC.NURSE ---
Pt had 9 beat vtach 1820 asymptomatic at time Antonella MENDOZA notified, 2G IV mag given per order as well as 20 po potassium and metoprolol.
[2024-04-07 20:24] LABS: Glucose, Whole Blood 326 mg/dL (60-115)
[2024-04-07] MEDS: Gabapentin 300 MG CAPSULE PO (20:42)
[2024-04-08] VITALS (10 sets, daily range): BP systolic 112–136; BP diastolic 57–73; PULSE 63–85; RESP 16–20; TEMP 36.2–37; O2SAT 93–98
[2024-04-08] MEDS: 0.9 % Sodium Chloride Flush 3 ML SYRINGE IVFLUSH ×4 (01:53→21:13)
[2024-04-08] MEDS: Heparin Sodium,Porcine 5,000 UNIT/ML VIAL 5000 UNIT SUBCUT ×2 (04:22→15:08)
[2024-04-08] MEDS: Fluticasone/Umeclidinium/Vilanterol 200/62.5/25 BLST.W.DEV 1 PUFF INHALE (07:43)
[2024-04-08 07:53] LABS: Glucose, Whole Blood 120 mg/dL (60-115)
[2024-04-08] MEDS: Montelukast Sodium 10 MG TABLET PO (08:26)
[2024-04-08] MEDS: Aspirin Enteric Coated 81 MG TABLET.DR PO (08:26)
[2024-04-08] MEDS: Atorvastatin Calcium 80 MG TABLET PO (08:26)
[2024-04-08] MEDS: amLODIPine Besylate 2.5 MG TABLET PO (08:26)
[2024-04-08] MEDS: Metoprolol Succinate ER 50 MG TAB.ER.24H PO (08:26)
[2024-04-08] MEDS: hydrALAZINE HCl 25 MG TABLET PO ×3 (08:26→21:12)
[2024-04-08] MEDS: Furosemide 100 MG/10 ML VIAL 80 MG IVPUSH ×2 (08:26→21:13)
[2024-04-08 08:58] LABS: Anion Gap 19 (12-20); Blood Urea Nitrogen 57 mg/dL (9-16); Carbon Dioxide 23 mmol/L (22-29); Chloride 104 mmol/L (96-108); Creatinine Clr Calc Pharmacy 12.1; Estimated Glomerular Filt Rate 15; Glucose Random 114 mg/dL (60-115); Potassium 4.6 mmol/L (3.3-5.1); Sodium 141 mmol/L (135-145)
--- NOTE | 2024-04-08 11:08 | PM.PNCARD ---
Subjective Subjective Date of Service: 04/08/24 Interval history: He is saying he had some shortness of breath overnight. Physical Exam Vital Signs: Last Vital Signs Temp 98.6 F 04/08/24 08:00 Pulse 71 04/08/24 08:00 Resp 16 04/08/24 08:00 BP 124/67 04/08/24 08:00 Pulse Ox 95 04/08/24 08:00 O2 Del Method Room Air 04/08/24 08:00 O2 Flow Rate 2 04/06/24 09:38 BMI result Body Mass Index 25.3 GENERAL APPEARANCE: in no acute distress, pleasant. NECK: no carotid bruit, + jugular venous distention. SKIN: no suspicious lesions, warm and dry. HEART: Systolic murmur aortic area with preserved 2nd heart sound, regular rate and rhythm. LUNGS: CTABL. ABDOMEN: soft, nontender. EXTREMITIES: No edema. PERIPHERAL PULSES: equal. NEUROLOGIC: No gross deficits, AAO X 3 Objective Labs and Meds 04/06/24 04:13 04/08/24 08:08 Lab results: Laboratory Results - last 24 hr 04/07/24 04/07/24 04/07/24 06:02 11:15 15:03 Hold Purple Top Sodium Potassium Chloride Carbon Dioxide Anion Gap BUN Creatinine Estim Creat Clear Calc Estimated GFR POC Glucose 240 H 282 H Random Glucose Calcium Magnesium 2.3 04/07/24 04/08/24 04/08/24 20:19 07:40 08:08 Hold Purple Top SEE NOTE Sodium 141 Potassium 4.6 D Chloride 104 Carbon Dioxide 23 Anion Gap 19 BUN 57 H Creatinine 3.85 H Estim Creat Clear Calc 12.1 Estimated GFR 15 POC Glucose 326 H 120 H Random Glucose 114 Calcium 10.0 Magnesium Progress Note: A&P Assessment and plan (1) Congestive heart failure: Status: Acute (2) CKD (chronic kidney disease) stage 3, GFR 30-59 ml/min: Status: Acute Plan 83-year-old gentleman presenting for acute on chronic congestive heart failure. He has known history of cardiomyopathy. He has previous history of aortic valve replacement and single-vessel bypass surgery. He has advanced CKD. Clinically continues to be volume overloaded. I think continue the IV diuretics today. We will reassess him tomorrow. Home dose of torsemide will be 40 mg twice a day. Adding hydralazine 25 TID. Adding isosorbide mononitrate 30 mg daily. Stop the amlodipine 2.5 mg. Can resume Farxiga after discharge. Follow-up with Dr. Pepe Junior at [facility]. We will follow along with you. Thank you for allowing me to participate in the care of your patient. Please feel free to contact me if you have any questions. Time Spent With Patient Time: Total time managing care of this patient today ____ minutes. Progress Note: Quality Stroke Does the patient have a stroke diagnosis?: No Procedures Date of Service Date of Service: 04/08/24
--- NOTE | 2024-04-08 11:23 | HO.PM.IMPN ---
Subjective Subjective Date of Service: 04/08/24 Interval History: Seen and examined this morning Follow-up for CHF feels better Physical Exam Vital Signs: Vital Signs: Last Vital Signs Temp 98.6 F 04/08/24 08:00 Pulse 71 04/08/24 08:00 Resp 16 04/08/24 08:00 BP 124/67 04/08/24 08:00 Pulse Ox 95 04/08/24 08:00 O2 Del Method Room Air 04/08/24 08:00 O2 Flow Rate 2 04/06/24 09:38 BMI result Body Mass Index 25.3 General: AO X 3, no acute distress Resp: CTA bilateral CVS: S1,S2,RRR GI: +BS, NT, no distention Skin: No rash Neuro: motor grossly intact Psych: appropriate affect Objective Data Active Medications Acetaminophen (Acetaminophen 325 Mg Tablet) 650 mg PO Q6H PRN PRN Reason: Pain, Mild (Pain Scale 1-3), fever or headache Amlodipine Besylate (Amlodipine Besylate 2.5 Mg Tablet) 2.5 mg PO DAILY [facility]; Protocol Last Admin: 04/08/24 08:26 Dose: 2.5 mg Documented By: HE Aspirin (Aspirin Enteric Coated 81 Mg Tablet.Dr) 81 mg PO DAILY [facility] Last Admin: 04/08/24 08:26 Dose: 81 mg Documented By: HE Atorvastatin Calcium (Atorvastatin Calcium 80 Mg Tablet) 80 mg PO DAILY [facility] Last Admin: 04/08/24 08:26 Dose: 80 mg Documented By: HE Calcium Carbonate (Calcium Carbonate 750 Mg Tab.Chew) 750 mg PO Q4H PRN PRN Reason: Heartburn Fluticasone/Umeclidinium/Vilanterol (Fluticasone/Umeclidinium/Vilanterol 200/62.5/25 Blst.W.Dev) 1 puff INHALE RDAILY [facility] Last Admin: 04/08/24 07:43 Dose: 1 puff Documented By: ARGELIA Furosemide (Furosemide 100 Mg/10 Ml Vial) 80 mg IVPUSH BID [facility]; Protocol Last Admin: 04/08/24 08:26 Dose: 80 mg Documented By: HE Gabapentin (Gabapentin 300 Mg Capsule) 300 mg PO BEDTIME [facility] Last Admin: 04/07/24 20:42 Dose: 300 mg Documented By: MALIKA Glucose (Glucose Gel 15 Gm Gel..Gram.) 15 gm PO Q15M PRN; Protocol PRN Reason: per Hypoglycemia Standing Ord. Heparin Sodium (Porcine) (Heparin Sodium,Porcine 5,000 Unit/Ml Vial) 5,000 unit SUBCUT Q12H [facility] Last Admin: 04/08/24 04:22 Dose: 5,000 unit Documented By: MALIKA Hydralazine HCl (Hydralazine Hcl 25 Mg Tablet) 25 mg PO TID [facility]; Protocol Last Admin: 04/08/24 08:26 Dose: 25 mg Documented By: HE Dextrose (D10) 250 mls @ 750 mls/hr IV Q15M PRN; Protocol PRN Reason: per Hypoglycemia Standing Ord. Insulin Human Lispro (Insulin Lispro 100 Unit/Ml 3 Ml Vial) 0 unit SUBCUT TIDAC [facility]; Protocol Last Admin: 04/08/24 07:55 Dose: Not Given Documented By: HE Non-Admin Reason: No Insulin Coverage Magnesium Hydroxide (Milk Of Magnesia 30 Ml Oral.Susp) 30 ml PO DAILY PRN PRN Reason: Constipation Melatonin (Melatonin 3 Mg Tablet) 6 mg PO BEDTIME PRN PRN Reason: Insomnia Metoprolol Succinate (Metoprolol Succinate Er 50 Mg Tab.Er.24h) 50 mg PO DAILY [facility]; Protocol Last Admin: 04/08/24 08:26 Dose: 50 mg Documented By: HE Montelukast Sodium (Montelukast Sodium 10 Mg Tablet) 10 mg PO DAILY [facility] Last Admin: 04/08/24 08:26 Dose: 10 mg Documented By: HE Ondansetron HCl (Ondansetron Hcl 4 Mg/2 Ml Vial) 4 mg IVPUSH Q8H PRN PRN Reason: Nausea and Vomiting Sodium Chloride (0.9 % Sodium Chloride Flush 3 Ml Syringe) 3 ml IVFLUSH QSHIFT [facility] Last Admin: 04/08/24 08:27 Dose: 3 ml Documented By: HE Labs 04/06/24 04:13 04/08/24 08:08 Labs: Laboratory Results - last 24 hr 04/07/24 04/07/24 04/07/24 06:02 15:03 20:19 Hold Purple Top Anion Gap Estim Creat Clear Calc Estimated GFR POC Glucose 282 H 326 H Random Glucose Calcium Magnesium 2.3 04/08/24 04/08/24 07:40 08:08 Hold Purple Top SEE NOTE Anion Gap 19 Estim Creat Clear Calc 12.1 Estimated GFR 15 POC Glucose 120 H Random Glucose 114 Calcium 10.0 Magnesium Assessment and Plan (1) Congestive heart failure: Status: Acute (2) KAILEY (acute kidney injury): Status: Acute Plan 83 yo M with HFrEF, aortic valve replacement, diabetes, asthma/COPD who presents to the hospital with a 4 day history of progressive shortness of breath. His presentation and workup in the emergency room is consistent with acute on chronic HFrEF exacerbation. He will be admitted for further workup and treatment. 1. Acute on chronic HFrEF, improving Last echo in our system is from 2021 showing EF of 25-30% continue IV Lasix for 1 more day Follow Intake and output, daily weights, tele monitor 2. KAILEY on CKD 4, improving Baseline creatinine appears to be around 2.9-3.5, down to 4 Monitor renal function closely Suspect cardiorenal 3. DM with hypoglycemia,hypoglycemia resolved Hypoglycemia noted on am labs x2 days in a row. pt asymptomatic reports low blood sugars in the morning at home HbA1c 6.9 - on Tresiba, glipizide, Farxiga at baseline reduce sliding scale to TID to avoid evening coverage follow POCs 4. Hypertension Continue norvasc hydralazine Metoprolol asthma/copd No acute exacerbation Continue baseline inhaler Full Code DVT pptx, heparin Requires ongoing inpatient stay for management of acute CHF requiring IV diuretics in the setting of KAILEY on CKD requiring close monitoring of renal function Quality Stroke Does the patient have a stroke diagnosis?: No VTE Prior VTE?: No VTE Risk Level:: Medical - moderate - high VTE Device Contraindication: Treatment Not Indicated VTE Drug Contraindication: N/A - Med Ordered
[2024-04-08 11:49] LABS: Glucose, Whole Blood 240 mg/dL (60-115)
[2024-04-08] MEDS: Insulin Lispro 100 UNIT/ML 3 ML VIAL SUBCUT ×3 (11:53→22:03)
[2024-04-08] MEDS: Isosorbide Mononitrate 30 MG TAB.ER.24H PO (12:23)
[2024-04-08 15:51] LABS: Glucose, Whole Blood 301 mg/dL (60-115)
[2024-04-08 18:39] LABS: Glucose, Whole Blood 403 mg/dL (60-115)
[2024-04-08] MEDS: Gabapentin 300 MG CAPSULE PO (21:12)
[2024-04-08] MEDS: Insulin Glargine,Hum.rec.anlog 100 UNIT/ML 10 ML VIAL 30 UNIT SUBCUT (22:03)
[2024-04-09] VITALS (9 sets, daily range): BP systolic 121–145; BP diastolic 60–87; PULSE 71–89; RESP 15–20; TEMP 36.2–37.4; O2SAT 93–98
[2024-04-09 01:00] LABS: Glucose, Whole Blood 426 mg/dL (60-115)
[2024-04-09 01:09] LABS: Glucose, Whole Blood 224 mg/dL (60-115)
[2024-04-09] MEDS: Heparin Sodium,Porcine 5,000 UNIT/ML VIAL 5000 UNIT SUBCUT ×2 (02:44→15:35)
[2024-04-09 06:22] LABS: Glucose, Whole Blood 105 mg/dL (60-115)
[2024-04-09 07:21] LABS: Glucose, Whole Blood 85 mg/dL (60-115)
[2024-04-09] MEDS: Fluticasone/Umeclidinium/Vilanterol 200/62.5/25 BLST.W.DEV 1 PUFF INHALE (07:24)
[2024-04-09] MEDS: hydrALAZINE HCl 25 MG TABLET PO ×3 (07:47→20:52)
[2024-04-09] MEDS: Furosemide 100 MG/10 ML VIAL 80 MG IVPUSH (07:48)
[2024-04-09] MEDS: Atorvastatin Calcium 80 MG TABLET PO (07:48)
[2024-04-09] MEDS: Metoprolol Succinate ER 50 MG TAB.ER.24H PO (07:48)
[2024-04-09] MEDS: Montelukast Sodium 10 MG TABLET PO (07:48)
[2024-04-09] MEDS: Aspirin Enteric Coated 81 MG TABLET.DR PO (07:50)
[2024-04-09] MEDS: 0.9 % Sodium Chloride Flush 3 ML SYRINGE IVFLUSH ×3 (07:51→20:53)
[2024-04-09] MEDS: Isosorbide Mononitrate 30 MG TAB.ER.24H PO (07:57)
--- NOTE | 2024-04-09 10:37 | P.PNIM_ITS ---
Subjective Subjective Date of Service: 04/09/24 Interval History: Seen and examined this morning Follow-up for CHF feels better, Hyperglycemia yesterday and is feeling better now Physical Exam 2 Vital Signs: Vital Signs: Last Vital Signs Temp 98.2 F 04/09/24 07:17 Pulse 89 04/09/24 07:25 Resp 15 04/09/24 07:25 BP 131/60 04/09/24 07:17 Pulse Ox 94 04/09/24 07:17 O2 Del Method Room Air 04/09/24 07:17 O2 Flow Rate 2 04/06/24 09:38 BMI result Body Mass Index 25.3 General: AO X 3, no acute distress Resp: CTA bilateral CVS: S1,S2,RRR GI: +BS, NT, no distention Skin: No rash Neuro: motor grossly intact Psych: appropriate affect Objective Data Active Medications Acetaminophen (Acetaminophen 325 Mg Tablet) 650 mg PO Q6H PRN PRN Reason: Pain, Mild (Pain Scale 1-3), fever or headache Aspirin (Aspirin Enteric Coated 81 Mg Tablet.) 81 mg PO DAILY [facility] Last Admin: 04/09/24 07:50 Dose: 81 mg Documented By: HE Atorvastatin Calcium (Atorvastatin Calcium 80 Mg Tablet) 80 mg PO DAILY [facility] Last Admin: 04/09/24 07:48 Dose: 80 mg Documented By: HE Calcium Carbonate (Calcium Carbonate 750 Mg Tab.Chew) 750 mg PO Q4H PRN PRN Reason: Heartburn Fluticasone/Umeclidinium/Vilanterol (Fluticasone/Umeclidinium/Vilanterol 200/62.5/25 Blst.W.Dev) 1 puff INHALE RDAILY [facility] Last Admin: 04/09/24 07:24 Dose: 1 puff Documented By: JAM Furosemide (Furosemide 100 Mg/10 Ml Vial) 80 mg IVPUSH BID [facility]; Protocol Last Admin: 04/09/24 07:48 Dose: 80 mg Documented By: HE Gabapentin (Gabapentin 300 Mg Capsule) 300 mg PO BEDTIME [facility] Last Admin: 04/08/24 21:12 Dose: 300 mg Documented By: AUGUSTA Glucose (Glucose Gel 15 Gm Gel..Gram.) 15 gm PO Q15M PRN; Protocol PRN Reason: per Hypoglycemia Standing Ord. Heparin Sodium (Porcine) (Heparin Sodium,Porcine 5,000 Unit/Ml Vial) 5,000 unit SUBCUT Q12H [facility] Last Admin: 04/09/24 02:44 Dose: 5,000 unit Documented By: AUGUSTA Hydralazine HCl (Hydralazine Hcl 25 Mg Tablet) 25 mg PO TID [facility]; Protocol Last Admin: 04/09/24 07:47 Dose: 25 mg Documented By: HE Dextrose (D10) 250 mls @ 750 mls/hr IV Q15M PRN; Protocol PRN Reason: per Hypoglycemia Standing Ord. Insulin Glargine (Insulin Glargine,Hum.Rec.Anlog 100 Unit/Ml 10 Ml Vial) 30 unit SUBCUT BEDTIME [facility] Last Admin: 04/08/24 22:03 Dose: 30 unit Documented By: AUGUSTA Insulin Human Lispro (Insulin Lispro 100 Unit/Ml 3 Ml Vial) 0 unit SUBCUT TIDAC [facility]; Protocol Last Admin: 04/09/24 07:30 Dose: Not Given Documented By: HE Non-Admin Reason: No Insulin Coverage Isosorbide Mononitrate (Isosorbide Mononitrate 30 Mg Tab.Er.24h) 30 mg PO DAILY [facility]; Protocol Last Admin: 04/09/24 07:57 Dose: 30 mg Documented By: HE Magnesium Hydroxide (Milk Of Magnesia 30 Ml Oral.Susp) 30 ml PO DAILY PRN PRN Reason: Constipation Melatonin (Melatonin 3 Mg Tablet) 6 mg PO BEDTIME PRN PRN Reason: Insomnia Metoprolol Succinate (Metoprolol Succinate Er 50 Mg Tab.Er.24h) 50 mg PO DAILY [facility]; Protocol Last Admin: 04/09/24 07:48 Dose: 50 mg Documented By: HE Montelukast Sodium (Montelukast Sodium 10 Mg Tablet) 10 mg PO DAILY [facility] Last Admin: 04/09/24 07:48 Dose: 10 mg Documented By: HE Ondansetron HCl (Ondansetron Hcl 4 Mg/2 Ml Vial) 4 mg IVPUSH Q8H PRN PRN Reason: Nausea and Vomiting Sodium Chloride (0.9 % Sodium Chloride Flush 3 Ml Syringe) 3 ml IVFLUSH QSHIFT [facility] Last Admin: 04/09/24 07:51 Dose: 3 ml Documented By: HE Labs 04/06/24 04:13 04/08/24 08:08 Labs: Laboratory Results - last 24 hr 04/08/24 04/08/24 04/08/24 11:32 15:47 18:33 POC Glucose 240 H 301 H 403 H* 04/08/24 04/09/24 04/09/24 21:38 01:05 06:17 POC Glucose 426 H* 224 H 105 04/09/24 07:15 POC Glucose 85 Assessment and Plan (1) Congestive heart failure: Status: Acute (2) KAILEY (acute kidney injury): Status: Acute Plan 83 yo M with HFrEF, aortic valve replacement, diabetes, asthma/COPD who presents to the hospital with a 4 day history of progressive shortness of breath. His presentation and workup in the emergency room is consistent with acute on chronic HFrEF exacerbation. He will be admitted for further workup and treatment. 1. Acute on chronic HFrEF, improving Last echo in our system is from 2021 showing EF of 25-30% change to PO lasix today Follow Intake and output, daily weights, tele monitor 2. 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 DM with hypoglycemia,hypoglycemia resolved. Hyperglycemia overnight. -restarted Lantus 30 at night, normal Tresib 76 in the morning at home. -continue sliding scale, and restart Lantus in the morning starting tomorrow 4. Hypertension Continue norvasc hydralazine Metoprolol asthma/copd No acute exacerbation Continue baseline inhaler Full Code DVT pptx, heparin Requires ongoing inpatient stay for management of acute CHF requiring IV diuretics in the setting of KAILEY on CKD requiring close monitoring of renal function Quality Stroke Does the patient have a stroke diagnosis?: No VTE Prior VTE?: No VTE Risk Level:: Medical - moderate - high VTE Device Contraindication: Treatment Not Indicated VTE Drug Contraindication: N/A - Med Ordered
[2024-04-09 11:21] LABS: Glucose, Whole Blood 239 mg/dL (60-115)
[2024-04-09 12:23] LABS: Anion Gap 20 (12-20); Blood Urea Nitrogen 64 mg/dL (9-16); Calcium 9.7 mg/dL (8.4-10.2); Carbon Dioxide 23 mmol/L (22-29); Chloride 102 mmol/L (96-108); Estimated Glomerular Filt Rate 15; Glucose Random 231 mg/dL (60-115); Sodium 141 mmol/L (135-145)
[2024-04-09] MEDS: Insulin Lispro 100 UNIT/ML 3 ML VIAL SUBCUT ×2 (12:24→17:03)
--- NOTE | 2024-04-09 12:25 | P.DS_ITS ---
DS: Providers Provider Date of Service: 04/10/24 Date of admission: 04/05/24 13:37 Primary care physician: Antony Pappas MD Consults: 04/05/24 13:14 Consult to Cardiology Routine Consulting Provider: [facility] [place] [facility] Reason for consultation: CHF Has provider been notified: Yes DS: Diagnosis Discharge Diagnosis (1) Congestive heart failure: Status: Acute (2) KAILEY (acute kidney injury): Status: Resolved DS: Summary Hospital Course Hospital Course: History of Present Illness Date of Service: 04/05/24 Chief Complaint: shortness of breath The patient is an 83-year-old male with a past medical history of HFrEF, aortic valve replacement, diabetes, hypertension, COPD/asthma who presents to the emergency room with a 4 day history of progressive shortness of breath. Patient reports that his symptoms were initially mild and he attempted to use his p.r.n. oxygen at home but over the last several days this has progressed to the point where he is getting short of breath with minimal exertion. He reports lower extremity edema as well as orthopnea. He reports about a 2-3 lb weight gain. He denies any anginal symptoms. He reports a nonproductive cough. Denies any fevers or chills. He states that he has seen his elastic cutter in the recent past and an echo was performed. States that he was told that his heart remains weak but unchanged. In the emergency room patient was noted to be tachypneic with mildly increased work of breathing. Workup in the ED revealed a chest x-ray consistent with fluid overload as well as KAILEY on CKD as well as elevated BNP. The patient has been treated with IV diuretics but remains symptomatic and hence will be admitted for further care. Hospital course: 83 yo M with HFrEF, aortic valve replacement, diabetes, asthma/COPD who presents to the hospital with a 4 day history of progressive shortness of breath. His presentation and workup in the emergency room is consistent with acute on chronic HFrEF exacerbation. He will be admitted for further workup and treatment. 1. Acute on chronic HFrEF, improved with IV diuretics. Last echo in our system is from 2021 showing EF of 25-30% changed to PO 80 mg daily for discharge 2. KAILEY on CKD 4, improved Baseline creatinine appears to be around 2.9-3.5. Creatine peaked at 4.17 and has trended down with diuresis, presently at 3.87 3. He had episodes of hypoglycemia but ultimately blood sugars lottie up. he takes Tresiba 76 units at home which he manged himself. In the hospital he was on sliding scle and Lantus at redued dose of 30 unts compared to Tresiba 76 at home. will change given Lantus 25 today and to resume usual schedule at home home, and advise to start with 60 units in the morning and speak to his nurse 4. Hypertension Continue norvasc hydralazine Metoprolol asthma/copd No acute exacerbation Continue baseline inhaler Time Attestation Discharge Coordination Time (in mins): 45 Quality: Safe Use of Opioids Does Pt have an Active Cancer Diagnosis on the Problem List?: No Quality: Stroke Does the patient have a stroke diagnosis?: No Physical Exam Vital Signs: Vital Signs: Last Vital Signs Temp 97.1 F 04/09/24 11:07 Pulse 79 04/09/24 11:07 Resp 16 04/09/24 11:07 BP 122/74 04/09/24 11:07 Pulse Ox 95 04/09/24 11:07 O2 Del Method Room Air 04/09/24 11:07 O2 Flow Rate 2 04/06/24 09:38 BMI result Body Mass Index 25.3 General: AO X 3, no acute distress Resp: CTA bilateral CVS: S1,S2,RRR GI: +BS, NT, no distention Skin: No rash Neuro: motor grossly intact Psych: appropriate affect DS: Data Data Completed and Pending Completed studies during hospitalization [Text1]: Procedures Drainage of Bladder with Drainage Device, Via Natural or Artificial Opening (07/31/23) Labs on day of discharge: Laboratory Results - last 24 hr 04/08/24 04/08/24 04/08/24 15:47 18:33 21:38 Sodium Potassium Chloride Carbon Dioxide Anion Gap BUN Creatinine Estim Creat Clear Calc Estimated GFR POC Glucose 301 H 403 H* 426 H* Random Glucose Calcium 04/09/24 04/09/24 04/09/24 01:05 06:17 07:15 Sodium Potassium Chloride Carbon Dioxide Anion Gap BUN Creatinine Estim Creat Clear Calc Estimated GFR POC Glucose 224 H 105 85 Random Glucose Calcium 04/09/24 04/09/24 11:17 11:19 Sodium 141 Potassium 4.0 Chloride 102 Carbon Dioxide 23 Anion Gap 20 BUN 64 H Creatinine 3.87 H Estim Creat Clear Calc 12.0 Estimated GFR 15 POC Glucose 239 H Random Glucose 231 H Calcium 9.7 Discharge Plan Discharge Anticipated Discharge Date/Time: 04/10/24 11:22 Patient Disposition: Home Health Service Discharge Diagnosis: Acute on chronic heart failure Referrals: Ayden CEBALLOS [Outside] - 1 Week Antony Pappas MD [Primary Care Provider] - 1 Week Discharge Medications: New furosemide [Lasix] 80 mg tablet 80 mg PO DAILY Qty: 90 0RF metoprolol succinate 50 mg Tablet Extended Release 24 Hr 50 mg PO DAILY Qty: 90 0RF Protocol: Hold for SBP/HR < HOLD for SBP < : 90 HOLD for HR < : 60 isosorbide mononitrate 30 mg Tablet Extended Release 24 Hr 30 mg PO DAILY Qty: 90 0RF Protocol: Hold for SBP< HOLD for SBP < : 90 hydralazine 25 mg Tablet 25 mg PO TID Qty: 90 0RF Protocol: Hold for SBP< HOLD for SBP < : 90 Continued atorvastatin 80 mg tablet 1 tab PO DAILY aspirin 81 mg Tablet,Delayed Release (Dr/Ec) 81 mg PO DAILY gabapentin 300 mg capsule 1 cap PO BEDTIME montelukast 10 mg tablet 1 tab PO DAILY ergocalciferol (vitamin D2) 1,250 mcg (50,000 unit) capsule 1 cap PO MO albuterol sulfate 90 mcg/actuation HFA aerosol inhaler 2 puff PO Q6H PRN (Reason: wheezing) Trelegy Ellipta 200-62.5-25 mcg blister with device 1 ea INHALATION DAILY glipizide 10 mg tablet 10 mg PO BID insulin degludec [Tresiba FlexTouch U-200] 200 unit/mL (3 mL) insulin pen 76 unit subcut DAILY dapagliflozin propanediol [Farxiga] 5 mg tablet 5 mg PO DAILY Discontinued amlodipine 2.5 mg tablet 1 tab PO DAILY metoprolol succinate 50 mg tablet extended release 24 hr 75 mg PO DAILY torsemide 20 mg tablet 40 mg PO DAILY Discharge Orders: Discharge Order (Routine); Ordered 04/10/24 Ordered By: Bhupendra Coffman Diet: Diabetic diet Activity on Discharge: As tolerated Stand Alone Forms: Patient Portal Discharge page Print Language: Italian Care Plan Goals: recovery from heart failure good management of diabetes Health Concerns: heart failu diabetes chronic kidney disease Plan of Treatment: Torsemide is discontinued and replaced with Lasix 80 mg daily for heart failure Norvasc (Amlodipine) is discontinued Imdur (isosorbide mononitrate) is added for blood pressure Hydralazine 25 mg three times a day is added for blood pressure Toprol Dose has been reduced from 75 mg daily to 50 mg daily when you restart insulin (Tresiba) tomorrow, I recommended reducing dose to 65 units the first days and closely monitor your sugar and talk to your nurse who help with you adjust medication also visiting nurses will be checking on you at the house. Assessment: see above Discharge Date/Time: 04/10/24 13:16
[2024-04-09 16:24] LABS: Glucose, Whole Blood 258 mg/dL (60-115)
[2024-04-09] MEDS: Gabapentin 300 MG CAPSULE PO (20:53)
[2024-04-09 20:57] LABS: Glucose, Whole Blood 217 mg/dL (60-115)
[2024-04-09] MEDS: Insulin Glargine,Hum.rec.anlog 100 UNIT/ML 10 ML VIAL 30 UNIT SUBCUT (21:17)
[2024-04-10 00:12] LABS: Glucose, Whole Blood 167 mg/dL (60-115)
[2024-04-10] MEDS: Heparin Sodium,Porcine 5,000 UNIT/ML VIAL 5000 UNIT SUBCUT (03:12)
[2024-04-10 03:16] LABS: Glucose, Whole Blood 119 mg/dL (60-115)
[2024-04-10 03:31] VITALS: BP 126/60; PULSE 71; RESP 15; TEMP 36.5; O2SAT 92
[2024-04-10 05:23] LABS: Glucose, Whole Blood 103 mg/dL (60-115)
[2024-04-10 07:09] LABS: Glucose, Whole Blood 132 mg/dL (60-115)
[2024-04-10 07:10] VITALS: BP 133/68; PULSE 81; RESP 18; TEMP 36.8; O2SAT 96
[2024-04-10] MEDS: Fluticasone/Umeclidinium/Vilanterol 200/62.5/25 BLST.W.DEV 1 PUFF INHALE (07:20)
[2024-04-10 07:22] VITALS: PULSE 56; RESP 15; O2SAT 92
[2024-04-10] MEDS: hydrALAZINE HCl 25 MG TABLET PO (08:16)
[2024-04-10 08:17] VITALS: BP 133/68
[2024-04-10] MEDS: Furosemide 40 MG TABLET 80 MG PO (08:17)
[2024-04-10] MEDS: Isosorbide Mononitrate 30 MG TAB.ER.24H PO (08:17)
[2024-04-10] MEDS: Atorvastatin Calcium 80 MG TABLET PO (08:17)
[2024-04-10] MEDS: Metoprolol Succinate ER 50 MG TAB.ER.24H PO (08:18)
[2024-04-10] MEDS: Aspirin Enteric Coated 81 MG TABLET.DR PO (08:18)
[2024-04-10] MEDS: Montelukast Sodium 10 MG TABLET PO (08:18)
[2024-04-10] MEDS: 0.9 % Sodium Chloride Flush 3 ML SYRINGE IVFLUSH (08:18)
[2024-04-10 10:50] LABS: Glucose, Whole Blood 214 mg/dL (60-115)
[2024-04-10 10:53] VITALS: BP 109/56; PULSE 61; RESP 18; TEMP 36.9; O2SAT 95
--- NOTE | 2024-04-10 12:25 | P.F2F_ITS ---
Service Date Service Date: 04/10/24 Encounter Date of encounter: 04/10/24 Reasons for Services Signs and symptoms assessed: heart failure exacerbation Reason for senior living: medication management and teach disease management Homebound: Leaving the home is medically contraindicated at this time without the asist of a device and/or another person due th the listed conditions above and below. Reason homebound: shortness of breath with minimal effort and other Homebound supporting statement: homebound due to heart failure causing shortness of with minimal effort and therefore needs the assistance of another person Certification: Based on the above findings, I certify that this patient is confined to the home and needs intermittent senior living care, physical therapy and/or speech therapy, or continues to need occupational therapy. The patient is under my care, and I have initiated the establishment of the plan of care. The patient will be followed by a physician who will periodically review the plan of care. Time Spent With Patient Time: Total time managing care of this patient today ____ minutes.
[2024-04-10] MEDS: Insulin Glargine,Hum.rec.anlog 100 UNIT/ML 10 ML VIAL 25 UNIT SUBCUT (12:32)
--- NOTE | 2024-04-10 13:00 | MHC.CM.PN ---
Patient has been medically cleared for dc to home today, with services. A referral has been made to [facility], who has been made aware of today's dc.CM met with Patient at bedside and addressed IMM with him, providing Patient with the original and a copy has been placed on the chart. Patient's Daughter will transport to home.
== END 2024-04-10 13:16 | disposition home health service (06) | DRG 291 ==
LOC: HO.ED 13:16 → HO.EDOVER 13:45 → HO.IMC 04-06 10:35
PROVIDERS: Physician Assistant Medical; Admitting Provider Family Medicine; Emergency Provider Emergency Medicine Emergency Medical Services; PCP Internal Medicine; Visit Provider Internal Medicine
DX: I13.0 Hypertensive heart and chronic kidney disease with heart failure and stage 1 through stage 4 chronic kidney disease, or unspecified chronic kidney disease (principal); I50.23 Acute on chronic systolic (congestive) heart failure; N18.4 Chronic kidney disease, stage 4 (severe); N17.9 Acute kidney failure, unspecified; I47.20 Ventricular tachycardia, unspecified; G47.33 Obstructive sleep apnea (adult) (pediatric); J44.9 Chronic obstructive pulmonary disease, unspecified; I42.9 Cardiomyopathy, unspecified; I25.10 Atherosclerotic heart disease of native coronary artery without angina pectoris; E11.649 Type 2 diabetes mellitus with hypoglycemia without coma; N40.0 Benign prostatic hyperplasia without lower urinary tract symptoms; Z95.1 Presence of aortocoronary bypass graft; Z95.2 Presence of prosthetic heart valve; E11.22 Type 2 diabetes mellitus with diabetic chronic kidney disease; Z20.822 Contact with and (suspected) exposure to COVID-19; Z87.891 Personal history of nicotine dependence; Z79.4 Long term (current) use of insulin; Z79.82 Long term (current) use of aspirin; Z79.84 Long term (current) use of oral hypoglycemic drugs; Z79.899 Other long term (current) drug therapy
CPT/HCPCS: 0241U; 36415; 71046; 80048; 80053; 82947; 83036; 83735; 83880; 84484; 85025; 85027; 93005; 94640; 99285; J1610; J1644; J1940; J3475

== ENCOUNTER → 2024-04-05 10:29 | Outpatient (BNV) | payer MEDICARE, SELFPAY | PROVIDERS: Emergency Provider Emergency Medicine Emergency Medical Services; PCP Internal Medicine; Visit Provider Internal Medicine Cardiovascular Disease | DX: I50.23 Acute on chronic systolic (congestive) heart failure (principal); N18.30 Chronic kidney disease, stage 3 unspecified; Z95.3 Presence of xenogenic heart valve | CPT/HCPCS: 99223; 99233 ==

== ENCOUNTER → 2024-04-05 13:37 | Outpatient (BNV) | payer MEDICARE, SELFPAY | PROVIDERS: Admitting Provider Family Medicine; Emergency Provider Emergency Medicine Emergency Medical Services; PCP Internal Medicine; Visit Provider Family Medicine | DX: I50.23 Acute on chronic systolic (congestive) heart failure (principal); N17.9 Acute kidney failure, unspecified; N18.30 Chronic kidney disease, stage 3 unspecified | CPT/HCPCS: 99223; 99232; 99233; 99239; G0180 ==

== ENCOUNTER 2024-04-23 10:14 | Inpatient (IN) | payer MEDICARE, SELFPAY ==
[2024-04-23] VITALS (16 sets, daily range): BP systolic 101–145; BP diastolic 53–86; PULSE 77–111; RESP 12–28; TEMP 37.1–39.5; O2SAT 89–100; BMI 20.7
--- NOTE | 2024-04-23 | ECG_ITS ---
Test Reason : DYSPNEA Blood Pressure : / mmHG Vent. Rate : 089 BPM Atrial Rate : 089 BPM P-R Int : 228 ms QRS Dur : 090 ms QT Int : 394 ms P-R-T Axes : 052 -34 138 degrees QTc Int : 479 ms Sinus rhythm with 1st degree A-V block Left axis deviation Left ventricular hypertrophy with repolarization abnormality ( R in aVL , Carlos product ) Abnormal ECG When compared with ECG of 05-APR-2024 10:20, Nonspecific T wave abnormality has replaced inverted T waves in Anterior leads Referred By: Generic ED Physician Electronically Signed By:LISA TERESA
--- NOTE | ~2024-04-23 | CT_ITS ---
EXAMINATION: CT CHEST WITHOUT CONTRAST CLINICAL INFORMATION: Question pneumonia. COMPARISON: Chest radiograph 05/03/2024. TECHNIQUE: Multidetector volumetric CT imaging of the chest was done. Axial MIP volume rendering provided. Sagittal and coronal reformatted images were obtained. This CT examination was performed using dose optimization techniques as appropriate, variously including the following: *Automated exposure control *Adjustment of mA and/or kV according to patient size (this includes techniques or standardized protocols for targeted exams where dose is matched to indication/reason for exam; i.e. extremities or head) *Use of iterative reconstruction technique DLP: 113 mGy-cm FINDINGS: LUNGS: Few very subtle groundglass opacities in the right upper lobe, for example measuring 1.3 cm in the right apex (5:90) and 1.2 cm in the posterior right upper lobe (5:153). Mild interlobular septal thickening, bronchial wall thickening and mosaic attenuation of the lung parenchyma. Central airways are patent. Scattered calcified granulomas. Multiple bilateral solid pulmonary nodules, for example a 6 mm solid nodule in the left lower lobe (5:268) and a 3 mm solid nodule in the left lower lobe (5:324). MEDIASTINUM: Cardiomegaly. No pericardial effusion. Few enlarged mediastinal lymph nodes for example measuring 1.5 cm in short axis in the anterior precarinal region (3:21). Postoperative changes from median sternotomy, CABG, coronary artery stents and aortic valve replacement. Right IJ dialysis catheter terminates in the proximal right atrium. CORONARY ARTERY CALCIFICATION: Severe multivessel coronary artery calcifications. PLEURA: No pleural effusion or pneumothorax. AXILLA: Mild symmetric gynecomastia. UPPER ABDOMEN: Partially seen splenomegaly. Unchanged asymmetric elevation of the right hemidiaphragm. OSSEOUS STRUCTURES: Age-indeterminate minimally displaced fracture of the right posterior first rib (5:38). CT/CT chest wo IV con IMPRESSION: 1. Mild interlobular septal thickening, bronchial wall thickening and mosaic attenuation of the lung parenchyma. These findings are suggestive of a combination of pulmonary edema and small airways disease. 2. Subtle groundglass opacities in the right upper lobe could be infectious/inflammatory. Recommend follow-up with CT chest in 3-6 months. 3. Multiple bilateral solid pulmonary nodules, largest measuring 6 mm in the left lower lobe. As above, follow-up with CT chest in 3-6 months is recommended. 4. Few enlarged mediastinal lymph nodes, possibly reactive. Recommend attention on follow-up. 5. Age-indeterminate minimally displaced fracture of the right posterior first rib. Correlate for point tenderness. 6. Partially seen splenomegaly. 7. Severe coronary artery calcifications with postoperative changes from cardiac surgery. Follow-up with non destructive evaluation specialist recommended. Fleischner guidelines were followed. Electronically signed by: Lexis Chauhan MD 05/05/2024 04:27 PM EDT
--- NOTE | ~2024-04-23 | XR_ITS ---
EXAMINATION: XR CHEST CLINICAL INFORMATION: Dyspnea. COMPARISON: Chest radiograph dated 04/05/2024. TECHNIQUE: Frontal view of the chest was obtained. FINDINGS: There are sternotomy sutures. There is a prosthetic heart valve. The heart is normal in size for this projection. There is asymmetric elevation of the right hemidiaphragm, similar to the prior study. There is central vascular congestion and mild bilateral interstitial prominence which may represent pulmonary edema. There is no large pleural effusion. No pneumothorax. XR/XR chest 1V IMPRESSION: Central vascular congestion and mild pulmonary edema. Electronically signed by: Alex Gaitan DO 04/23/2024 12:45 PM EDT
--- NOTE | ~2024-04-23 | IR_ITS ---
CLINICAL HISTORY: End-stage renal disease. The patient presents to interventional radiology for placement of a tunneled central venous catheter for hemodialysis. PROCEDURES: 1. Real-time ultrasound-guided access into the right internal jugular vein after documentation of selected vessel patency, and permanent imaging storing in the patient record. 2. Placement of a 14.5 fr 23 cm tunneled, dual-lumen hemodialysis catheter. Clinician: Ubaldo Rockwell PA-C MEDICATIONS: -Fentanyl 25 mcg, Lidocaine 1% 10 mL SQ. -Antibiotics: Ancef -For additional details, please see nursing flowsheet. COMPLICATIONS: None. ESTIMATED BLOOD LOSS: <5 ml SPECIMENS: None FLUOROSCOPY TIME: 2.0 min PROCEDURE NOTE: The procedure, risks, benefits, and alternatives were carefully explained to patient, and written informed consent was obtained. The patient was placed supine on the fluoroscopy table. A timeout was performed. The right neck and chest was prepped and draped in usual sterile fashion. Local anesthesia was administered to the access site with lidocaine. Under ultrasound guidance, the right internal jugular vein was accessed with a 5 Fr micropuncture set. A 0.035 in wire was advanced to the IVC to maintain access during the tunneling process. Next, subcutaneous lidocaine was administered to the chest. Using blunt dissection, a subcutaneous tunnel was created that connects from the upper chest to the venotomy site. The dialysis catheter was pulled through the tunnel. The tract in the vein was dilated and a peel-away sheath was advanced over the wire. The catheter was advanced through the sheath, which was subsequently peeled away. The catheter was tested, flushed, and sutured to the skin with its tip in the high right atrium. A permanent fluoroscopic image of the chest was saved to PACS. The catheter ports were packed with heparin per routine protocol. The right neck Angel catheter then was removed. The patient was stable after the procedure and was transferred to the post anesthesia care unit. This procedure was performed under moderate sedation with a dedicated nurse and continuous monitoring of vital signs. FINDINGS: 1. Patent right internal jugular vein. 2. Placement of a tunneled, dual-lumen hemodialysis catheter as above. 3. Catheter flushes and aspirates very well with a 10 mL syringe. No pneumothorax. IR/IR cvc insert central tunnel IMPRESSION: Placement of a tunneled hemodialysis catheter in the right internal jugular vein and removal of the right neck non tunneled hemodialysis catheter. PLAN: -The catheter may be used immediately. This procedure was performed by Ubaldo Rockwell PA-C, and directly supervised by Dr. Rice. Electronically signed by: Jack Rice MD 05/18/2024 02:10 PM EDT
--- NOTE | ~2024-04-23 | US_ITS ---
EXAMINATION: US RETROPERITONEAL LIMITED (RENAL ONLY) CLINICAL INFORMATION: Chronic kidney disease stage IV. COMPARISON: Renal ultrasound 03/13/2022. TECHNIQUE: Real-time imaging of the kidneys. FINDINGS: RIGHT KIDNEY: 10.0 x 5.0 x 4.1 cm (SAG x AP x TRV). The kidney is normal in size, contour, and echogenicity. Renal cortical thickness is normal. No calculi or focal parenchymal lesions. No hydronephrosis. LEFT KIDNEY: 9.9 x 4.7 x 4.6 cm (SAG x AP x TRV). The kidney is normal in size, contour, and echogenicity. Renal cortical thickness is normal. No renal calculi or hydronephrosis. Several cysts are observed in the left kidney, lower pole at 22 x 19 x 22 mm, lower pole lateral at 14 x 8 x 13 mm, lower pole lateral exophytic at 10 x 10 x 14 mm . No change. ADDITIONAL FINDINGS: No ascites. Spleen upper limits in size at 12.9 cm. US/US renal BI IMPRESSION: No suspicious findings. No hydronephrosis. Left renal cysts. Electronically signed by: Denton Arauz MD 04/26/2024 08:38 AM EDT
--- NOTE | ~2024-04-23 | CT_ITS ---
EXAMINATION: CT HEAD WITHOUT CONTRAST CLINICAL INFORMATION: Altered mental status COMPARISON: None available. TECHNIQUE: Contiguous axial imaging was performed from the skull base to vertex without intravenous administration of contrast. This CT examination was performed using dose optimization techniques as appropriate, variously including the following: *Automated exposure control *Adjustment of mA and/or kV according to patient size (this includes techniques or standardized protocols for targeted exams where dose is matched to indication/reason for exam; i.e. extremities or head) *Use of iterative reconstruction technique DLP: 726 mGy-cm FINDINGS: CT examination of the brain shows age-related involutional changes with prominence of the ventricles and sulci. Periventricular white matter hypodensities are evident, likely on the basis of chronic microvascular ischemic disease. No acute hemorrhage, mass effect or shift is evident. In the posterior fossa, the brainstem, cerebellum and fourth ventricle are unremarkable. The orbits and bony calvarium are intact. The paranasal sinuses and mastoid air cells are well pneumatized and clear. CT/CT head/brain wo IV con IMPRESSION: 1. Age-related involutional changes and microvascular disease. 2. No acute hemorrhage, mass effect, shift or acute intracranial pathology. Electronically signed by: Jorje Carr MD 05/03/2024 02:16 PM EDT
--- NOTE | ~2024-04-23 | NM_ITS ---
EXAMINATION: BILIARY TRACT IMAGING STUDY WITH CCK CLINICAL INFORMATION: Fever, elevated bilirubin, diabetes, thickening of the gallbladder on ultrasound.. COMPARISON: No previous biliary scan is available for comparison. CT of the abdomen and pelvis dated 04/27/2024 and abdominal ultrasound dated 04/27/2024 are available for comparison.. TECHNIQUE: Serial gamma scintillation camera images were obtained over the abdomen for a total observation period of 120 minutes following the intravenous administration of 5.0 mCi Tc-99m mebrofenin. FINDINGS: There is good concentration of activity in the liver by 5 minutes post injection. Biliary activity is visualized by 10 minutes. The gallbladder is well visualized by 70 minutes. Small bowel is well visualized by 15 minutes. At 90 minutes post radiopharmaceutical injection, a 30-minute infusion of 1.3 micrograms Sincalide was then begun and an additional 30 minutes of images were obtained. There is good emptying of the gallbladder. By the end of the study there is good clearance of activity from the liver and visualization of diffuse small bowel activity. The calculated gallbladder ejection fraction is 55% (normal gallbladder ejection fraction is greater than 35%). NM/NM hepatobiliary w pharm IMPRESSION: Visualization of the gallbladder is evidence of a patent cystic duct and strong evidence against the diagnosis of acute cholecystitis. The common bile duct is patent. Gallbladder emptying and ejection fraction are normal. Liver function appears normal. Electronically signed by: Keith Pearl MD 05/02/2024 08:50 AM EDT
--- NOTE | ~2024-04-23 | XR_ITS ---
EXAMINATION: XR CHEST CLINICAL INFORMATION: Fever COMPARISON: 04/23/2024 TECHNIQUE: Frontal view of the chest was obtained. FINDINGS: Again seen is cardiomegaly with median sternotomy. There is central vascular congestion, minimally improved when compared to prior. The right hemidiaphragm remains elevated. No significant pleural effusion is present. Some bibasilar atelectasis remains present. XR/XR chest 1V IMPRESSION: Cardiomegaly with central vascular congestion, minimally improved when compared to prior. Electronically signed by: Emiliano Kemp MD 04/27/2024 12:24 AM EDT
--- NOTE | ~2024-04-23 | CT_ITS ---
EXAMINATION: CT HEAD WITHOUT CONTRAST CLINICAL INFORMATION: Evaluate for stroke bleed. COMPARISON: None available. TECHNIQUE: Contiguous axial imaging was performed from the skull base to vertex without intravenous administration of contrast. This CT examination was performed using dose optimization techniques as appropriate, variously including the following: *Automated exposure control *Adjustment of mA and/or kV according to patient size (this includes techniques or standardized protocols for targeted exams where dose is matched to indication/reason for exam; i.e. extremities or head) *Use of iterative reconstruction technique DLP: 653 mGy-cm FINDINGS: no mass hemorrhage or cerebral edema. There is commensurate prominence of the ventricles and sulci compatible with age-related volume loss. Soft tissues normal. Bone normal without fracture. Sinus is clear. Mastoid air cells clear. Axial CT/CT head/brain wo IV con IMPRESSION: No acute intracranial pathology. Electronically signed by: Osmani Loya MD 04/23/2024 02:21 PM EDT
--- NOTE | ~2024-04-23 | US_ITS ---
EXAMINATION: US ABDOMEN LIMITED CLINICAL INFORMATION: Persistent fever. Elevated LFTs. COMPARISON: CT abdomen and pelvis 04/27/2024. Renal ultrasound 04/25/2024. TECHNIQUE: Real-time imaging of the gallbladder and common bile duct. FINDINGS: GALLBLADDER: There is thickening of the gallbladder wall, measuring 0.6 cm. There are multiple gallbladder polyps with the largest measuring 0.5 x 0.4 x 0.4 cm. The gallbladder is physiologically distended without evidence of stones, sludge or pericholecystic fluid. COMMON BILE DUCT: Normal in caliber measuring 0.5 cm in diameter. US/US abdomen limited IMPRESSION: 1. Thickening of the gallbladder wall. No pericholecystic fluid. 2. Multiple gallbladder polyps with the largest measuring 0.5 cm. Electronically signed by: Ayleen Waggoner MD 04/27/2024 01:08 PM EDT
--- NOTE | ~2024-04-23 | XR_ITS ---
EXAMINATION: XR CHEST CLINICAL INFORMATION: Altered mental status. Concern for pneumonia. COMPARISON: Chest x-ray April 26, 2024 TECHNIQUE: Frontal portable view of the chest was obtained. 10:44 AM FINDINGS: Right IJ catheter tip over the right atrium. Status post median sternotomy for cardiac valve repair. No pulmonary vascular congestion. No focal consolidation. No pleural effusion. Chronic elevated right diaphragm unchanged since prior study. XR/XR chest 1V IMPRESSION: 1. Right IJ catheter tip over right atrium. 2. No acute abnormality of chest. Electronically signed by: Vicente Perez MD 05/03/2024 03:04 PM EDT
--- NOTE | ~2024-04-23 | CT_ITS ---
EXAMINATION: CT ABDOMEN AND PELVIS WITHOUT CONTRAST CLINICAL INFORMATION: Elevated bilirubin COMPARISON: Renal ultrasound 04/25/2024 TECHNIQUE: Multidetector volumetric imaging was performed from the superior aspect of the liver through the pubic symphysis. Sagittal and coronal reformatted images were obtained on the technologist's workstation. This CT examination was performed using dose optimization techniques as appropriate, variously including the following: *Automated exposure control *Adjustment of mA and/or kV according to patient size (this includes techniques or standardized protocols for targeted exams where dose is matched to indication/reason for exam; i.e. extremities or head) *Use of iterative reconstruction technique DLP: 311 mGy-cm FINDINGS: LUNG BASES: The heart is enlarged. No consolidations or effusions. The right hemidiaphragm is elevated. LIVER, GALLBLADDER, AND BILIARY TREE: The liver is normal in size, shape, and attenuation. No focal hepatic lesion or biliary ductal dilatation is present. The gallbladder is unremarkable with no evidence of radiopaque gallstones, gallbladder wall thickening, or obvious pericholecystic inflammatory changes. PANCREAS: Unremarkable. SPLEEN: The spleen is enlarged at 15.5 cm ADRENAL GLANDS: Unremarkable. KIDNEYS AND URETERS: The kidneys are normal in size, shape, and attenuation. There is volume loss in the kidneys with some cortical thinning and hypertrophy of renal sinus fat. No hydronephrosis, hydroureter, or calculi seen. No perinephric stranding. A benign left lower pole 2.3 cm Bosniak class I renal cyst is noted which requires no additional imaging or follow up. No solid renal masses are seen. BLADDER: Bladder wall is symmetrically thickened. GASTROINTESTINAL TRACT: The small and large bowel are unremarkable. The appendix is not seen but there is no evidence of appendicitis.. ABDOMINAL WALL: No significant hernia is appreciated. LYMPH NODES: Normal. VASCULAR: Calcific atherosclerotic changes are present in the aorta and iliofemoral vessels. There is no evidence of an abdominal aortic aneurysm. PELVIC VISCERA: There is mild to moderate BPH. Seminal vesicles appear normal. OSSEOUS STRUCTURES: Unremarkable. CT/CT abdomen pelvis wo IV con IMPRESSION: 1. A cause for the patient's elevated bilirubin has not been found. 2. Incidental note made of cardiomegaly, elevated right hemidiaphragm, splenomegaly, BPH and other findings described above. Fleischner guidelines were followed. Electronically signed by: Emiliano Kemp MD 04/27/2024 10:52 AM EDT RP
--- NOTE | ~2024-04-23 | IR_ITS ---
PROCEDURE: IR INSERTION OF CENTRAL VENOUS CATHETER CLINICAL INFORMATION: CLINICAL HISTORY: End-stage renal disease. The patient presents to interventional radiology for placement of a temporarycentral venous catheter for hemodialysis. PROCEDURES: 1. Real-time ultrasound-guided access into the right internal jugular vein after documentation of selected vessel patency, and permanent imaging storing in the patient record. 2. Placement of a non-tunneled dual-lumen hemodialysis catheter. COMPLICATIONS: None. ESTIMATED BLOOD LOSS: <5 ml SPECIMENS: None FLUOROSCOPY TIME: 0.3 min PROCEDURE NOTE: The procedure, risks, benefits, and alternatives were carefully explained to patient, and written informed consent was obtained. The patient was placed supine on the fluoroscopy table. A timeout was performed. The right neck and chest was prepped and draped in usual sterile fashion. Local anesthesia was administered to the access site with lidocaine. Under ultrasound guidance, the right internal jugular vein was accessed with a 5 Fr micropuncture set. A 0.035 in wire was advanced to the IVC. The catheter was advanced over the wire. The catheter was tested, flushed, and sutured to the skin with its tip in the high right atrium. A permanent fluoroscopic image of the chest was saved to PACS. The catheter ports were packed with heparin per routine protocol. FINDINGS: 1. Patent right internal jugular vein. 2. Placement of a dual-lumen hemodialysis catheter as above. 3. Catheter flushes and aspirates very well with a 10 mL syringe. No pneumothorax. IR/IR cvc insert non tunnel IMPRESSION: Placement of a temporary hemodialysis catheter in the right internal jugular vein PLAN: -The catheter may be used immediately. Electronically signed by: Jack Rice MD 06/29/2024 01:13 PM [facility]
--- NOTE | 2024-04-23 10:40 | PC.NURSE ---
biba from home d/t dyspnea/fever/AMS per family x this morning. upon EMS arrival - 93% RA - placed on 2L v NC w/ good effect. recent hospitalization for CHF. a&ox4 on ED arrival. follows commands appropriately but seemingly tremulous/speaking w/ eyes closed. strong foul urine odor noted. pt incontinent of urine. another 20gIV placed in the right forearm - labs obtained/sent to lab. rectal temp obtained displaying 101. otherwise vss and up to date. nsr on the cardiac cath lab radiology technologist. ekg performed by tech. 18gIV in the left AC via EMS. another 20gIV placed in the right forearm - labs obtained/sent to lab. [place] catheter placed. pt positioned upright to promote patent airway. crackles noted throughout upon auscultation. wob noted. respiratins even/labored. plan of care ongoing. call bhatti placed within reach.
[2024-04-23 10:50] LABS: MANUAL DIFF FLAG NO
[2024-04-23] MEDS: Acetaminophen Supp 650 MG SUPP.RECT PR (10:57)
--- NOTE | 2024-04-23 10:58 | PC.NURSE ---
suppository administered for fever. effectiveness pending.
[2024-04-23 10:59] LABS: INTERNATIONAL NORM RATIO 1.2 (0.9-1.1); Prothrombin Time 13.7 SEC (10.9-12.4)
[2024-04-23 11:01] LABS: Partial Thromboplastin Time 31.5 SEC (26.0-36.8)
[2024-04-23 11:08] LABS: Lactic Acid 1.5 mmol/L (0.5-2.0)
[2024-04-23 11:13] LABS: Troponin-I High Sensitivity 141.1 ng/L (<3.5-35.0)
--- NOTE | 2024-04-23 11:13 | PC.NURSE ---
critical lab value - troponin of 141.1 received at this time. dr. ritchie notified/aware.
[2024-04-23 11:21] LABS: Appearance Urine Clear; Color Urine Yellow; Glucose Urine UA 500 mg/dL (Negative); Leukocyte Esterase Urine Negative (Negative); Nitrite Urine Negative (Negative); PH 5.5 (5.0-9.0); Specific Gravity - Urine 1.015 (1.005-1.025); UMIC TRIGGER UACC YES; Urine Blood Negative (Negative); Urine Ketones Negative (Negative); Urine Protein 300 (3+) mg/dL (Neg-Trace)
--- NOTE | 2024-04-23 11:25 | PC.NURSE ---
urine obtained/sent to lab by tech.
[2024-04-23 11:27] LABS: Basophils Absolute Auto 0.1 X10*3/uL (0.0-0.2); Basophils Percent Auto 0.6 % (0-2); Eosinophils Absolute Auto 0.2 X10*3/uL (0.0-0.4); Eosinophils Percent Auto 1.8 % (0-4); Hematocrit 38.2 % (42.0-52.0); Hemoglobin 11.9 g/dl (14.0-18.0); Imm Gran Abs Auto 0.07 X10*3/uL (0.00-0.03); Imm Gran Pct Auto 0.7 % (0.0-0.4); Lymphocytes Absolute Auto 0.9 X10*3/uL (1.2-4.9); Lymphocytes Percent Auto 9.4 % (20-40); Mean Corpuscular HGB Conc 31.2 g/dl (31.0-36.0); Mean Corpuscular Volume 80.3 fL (80.0-98.0); Mean Platelet Volume 8.4 fL (9.4-12.4); Monocytes Percent Auto 10.4 % (2-11); Neutrophils Absolute Auto 7.7 x10*3/uL (2.0-8.3); Neutrophils Percent Auto 77.1 % (45-73); Platelet Count 227 X10*3/uL (160-400); Red Blood Count 4.76 X10*6/uL (4.60-5.80); Red Cell Distribution Width 16.6 % (11.0-16.0)
[2024-04-23 11:31] LABS: B Type Natriuretic Peptide 12068 pg/mL (<100)
[2024-04-23 11:32] LABS: Bacteria Urine None Seen (None Seen); Granular Casts Urine Present; RBC Urine 0-2 /HPF (0-2); Squamous Epithelial Cell Urine 0-2 /HPF (0-2); WBC Urine 0-5 /HPF (0-5)
[2024-04-23 11:37] LABS: Alanine Aminotransferase 27 U/L (0-40); Albumin Level 3.9 g/dL (3.5-5.0); Alkaline Phosphatase 102 U/L (39-117); Anion Gap 18 (12-20); Aspartate Amino Transferase 22 U/L (5-37); Bilirubin Total 1.1 mg/dL (0.0-1.0); Blood Urea Nitrogen 75 mg/dL (9-16); Calcium 9.7 mg/dL (8.4-10.2); Carbon Dioxide 21 mmol/L (22-29); Chloride 108 mmol/L (96-108); Glucose Random 129 mg/dL (60-115); Sodium 142 mmol/L (135-145); Total Protein 7.5 g/dL (6.5-8.0)
[2024-04-23 11:38] LABS: Creatinine Clr Calc Pharmacy 11.6; Estimated Glomerular Filt Rate 12
[2024-04-23 11:59] LABS: Influenza A PCR NEGATIVE (Negative); Influenza B PCR NEGATIVE (Negative); Resp Syncy Virus RNA Qual PCR NEGATIVE (Negative); SARS COV2 PCR INHOUSE NEGATIVE (Negative)
--- NOTE | 2024-04-23 11:59 | PC.NURSE ---
attempted to wean pt off O2 as he is not home O2 dependent. SPO2 displayed 89% on RA w/ WOB noted. pt replaced back on 2L via NC w/ good effect - resting @ 98%. pt turned/repositioned upright. respirations remain even/slightly labored. repeat rectal temp obtained s/p medication administration. repeat rectal temp displays 99.8. family bedside for support. plan of care ongoing. call bhatti placed within reach.
--- NOTE | 2024-04-23 12:08 | ED_ITS ---
HPI - SOB/Dyspnea General Chief Complaint: Dyspnea Stated Complaint: DIFFICULTY BREATHING, FEVER HX OF CHF Time Seen by Provider: 04/23/24 10:45 Mode of arrival: EMS Limitations: other (Altered mental status) History of Present Illness ED Provider: Dr. Elio Willard HPI Narrative: 83-year-old male with a past medical history of congestive heart failure of 20- 30% (echocardiogram 03/13/2022), aortic valve replacement, diabetes, hypertension, COPD/asthma who presents to the emergency room fever, change in mental status which began this morning. Patient is lethargic and not answering questions. Patient was hospitalized/2023 until 04/09/2024 for progressive shortness of breath and weight gain secondary felt to be consistent with CHF and acute kidney injury. Patient was treated with IV diuretic with symptomatic improvement and discharged home I obtained the following information from the patient's ED nurse who did speak to the patient's . Patient lives at home with his and does have a visiting nurse that checks in on him. Yesterday he became short of breath and had weakness. He also developed a fever. The states that his cough increased from his baseline. also noted increased swelling of his lower extremities. Patient became more lethargic today therefore she called an ambulance and had the patient brought to emergency department for evaluation Related Data Home Medications ?Medication ?Instructions ?Recorded ?Confirmed albuterol sulfate 90 mcg/actuation 2 puff PO Q6H PRN wheezing 03/11/22 04/23/24 aerosol inhaler aspirin 81 mg tablet,delayed 81 mg PO DAILY 03/11/22 04/23/24 release atorvastatin 80 mg tablet 1 tab PO DAILY 03/11/22 04/23/24 gabapentin 300 mg capsule 1 cap PO BEDTIME 03/11/22 04/23/24 montelukast 10 mg tablet 1 tab PO DAILY 03/11/22 04/23/24 glipizide 10 mg tablet 10 mg PO BID 07/31/23 04/23/24 insulin degludec 200 unit/mL (3 65 unit subcut DAILY 07/31/23 04/23/24 mL) subcutaneous pen (Tresiba FlexTouch U-200 insulin) fluticasone fur. 200 mcg-umeclid 1 ea inhalation DAILY 04/05/24 04/23/24 62.5 mcg-vilant 25 mcg inhalat.powder (Trelegy Ellipta) dapagliflozin propanediol 10 mg 10 mg PO DAILY 04/23/24 04/23/24 tablet (Farxiga) Vitamin D2 1 mg PO QWEEK 04/24/24 04/24/24 Previous Rx's ?Medication ?Instructions ?Recorded furosemide 80 mg tablet (Lasix) 80 mg PO DAILY #90 tabs 04/10/24 hydralazine 25 mg tablet 25 mg PO TID #90 tabs 04/10/24 isosorbide mononitrate 30 mg 30 mg PO DAILY #90 tabs 04/10/24 tablet,extended release 24 hr metoprolol succinate 50 mg 50 mg PO DAILY #90 tabs 04/10/24 tablet,extended release 24 hr Allergies Allergy/AdvReac Type Severity Reaction Status Date / Time No Known Allergies Allergy Verified 04/23/24 10:23 Review of Systems 2 Review of Systems: Yes Unobtainable due to mental condition FOR[facility]LY [facility] Past Medical History Medical History KAILEY (acute kidney injury) Pneumonia CKD (chronic kidney disease) stage 3, GFR 30-59 ml/min Type 2 diabetes mellitus CHF (congestive heart failure) Hypertension Diabetes Asthma COPD (chronic obstructive pulmonary disease) CHF (congestive heart failure) Social History Social History Household Members: Family Housing: House Do you presently have visiting nurse or other home services: No Alcohol intake: never Comment: refusing alarms Patient Tobacco Use Status: Former Tobacco user Smoked in Last 30 Days: No Second Hand Smoke Exposure: No Use of substances other than those prescribed or required for medical reasons: No Currently Displaying Signs/Symptoms of Drug Intoxication Withdrawal: No Have you been hit, kicked, punched, or otherwise hurt by someone within the past year? If so, by whom?: No Do you feel safe in your current relationship?: Yes Is there a partner from a previous relationship who is making you feel unsafe now?: No Are you made to feel afraid or neglected: No Advance Directives: Yes Advance Directives Information Provided: Yes Advance Directives on File: No Advance Directives Date on File: 03/13/22 Do you have a plan to hurt others: No Plan Recently lost weight without trying: Unsure Nutrition Risks: Poor intake 0-25% >4 days service: No Current occupational status: retired Physical Exam 2 Vital Signs: Vital Signs: Last Vital Signs Temp 98.0 F 04/30/24 07:29 Pulse 78 04/30/24 07:29 Resp 18 04/30/24 07:29 BP 127/62 04/30/24 07:29 Pulse Ox 95 04/30/24 07:29 O2 Del Method Room Air 04/30/24 07:29 O2 Flow Rate 2 04/28/24 07:44 BMI result Body Mass Index 20.7 Vital signs revealed fever of 101.2 degrees F rectal. O2 sat on room air was 92% on 2 L was 98 Exam: General: Somnolent but arousable, he was able to tell me his name but falls back asleep Head: Normocephalic, atraumatic EENT: PERRL, Lids normal, sclera normal, conjunctiva normal, nose normal , ears normal, throat without erythema or exudates Neck: Supple, no adenopathy Lung: Rales and rhonchi diffusely with no wheezing, breath sounds are symmetric Chest: symmetric movement, nontender Heart: regular rate and rhythm, normal S1, S2 no murmurs or rubs Abdomen: soft, non-tender, nondistended, normal bowel sounds Back: no vertebral tenderness, no CVAT Extremities: no deformities, moves all extremities symmetrically Neuro: Somnolent but arousable Medications Administered Generic Name Dose Route Start Last Admin Trade Name Freq PRN Reason Stop Dose Admin Acetaminophen 650 mg 04/23/24 16:01 04/28/24 08:20 Acetaminophen 325 Mg Tablet PO 650 mg Q6H PRN Administration Pain, Mild (Pain Scale 1-3), fever or headache Aspirin 81 mg 04/30/24 09:00 04/30/24 07:33 Aspirin 81 Mg Tab.Chew PO 81 mg DAILY LESLI Administration Atorvastatin Calcium 80 mg 04/25/24 09:00 04/30/24 07:33 Atorvastatin Calcium 80 Mg Tablet PO 80 mg DAILY LESLI Administration Calcium Carbonate 750 mg 04/23/24 16:01 04/27/24 16:03 Calcium Carbonate 750 Mg Tab.Chew PO 750 mg Q4H PRN Administration Heartburn Heparin Sodium (Porcine) 5,000 unit 04/23/24 16:15 04/30/24 04:04 Heparin Sodium,Porcine 5,000 Unit/Ml Vial SUBCUT 5,000 unit Q12H [facility] Administration Heparin Sodium (Porcine) 5,000 unit 04/28/24 16:45 04/28/24 19:01 Heparin Sodium,Porcine 5,000 Unit/Ml Vial INTRACATH Not Given [id number] [facility] Heparin Sodium (Porcine) 5,000 unit 04/28/24 16:45 04/28/24 19:01 Heparin Sodium,Porcine 5,000 Unit/Ml Vial INTRACATH Not Given [id number] [facility] Heparin Sodium (Porcine) 5,000 unit 04/28/24 16:45 04/28/24 19:01 Heparin Sodium,Porcine 5,000 Unit/Ml Vial INTRACATH Not Given [id number]@5 [facility] Insulin Human Lispro 0 unit 04/23/24 16:30 04/30/24 07:33 Insulin Lispro 100 Unit/Ml 3 Ml Vial SUBCUT 4 unit QIDACHS [facility] Administration Protocol Isosorbide Mononitrate 30 mg 04/25/24 09:00 04/30/24 07:33 Isosorbide Mononitrate 30 Mg Tab.Er.24h PO 30 mg DAILY [facility] Administration Protocol Melatonin 6 mg 04/23/24 16:01 04/26/24 20:53 Melatonin 3 Mg Tablet PO 6 mg BEDTIME PRN Administration Insomnia Montelukast Sodium 10 mg 04/25/24 09:00 04/30/24 07:33 Montelukast Sodium 10 Mg Tablet PO 10 mg DAILY [facility] Administration Nitroglycerin 0.4 mg 04/27/24 23:20 04/29/24 03:54 Nitroglycerin 0.4 Mg Tab.Subl SUBLINGUAL 0.4 tab [id number] PRN Administration Chest Pain Sodium Chloride 3 ml 04/24/24 00:00 04/29/24 20:55 0.9 % Sodium Chloride Flush 3 Ml Syringe IVFLUSH 3 ml QSHIFT [facility] Administration Discontinued Medications Generic Name Dose Route Start Last Admin Trade Name Freq PRN Reason Stop Dose Admin Acetaminophen 650 mg 04/23/24 10:44 04/23/24 10:57 Acetaminophen Supp 650 Mg Supp.Rect IA 04/23/24 10:45 650 mg ONCE ONE Administration Aspirin 325 mg 04/29/24 04:01 04/29/24 04:16 Aspirin 325 Mg Tablet PO 04/29/24 04:02 325 mg ONCE STA Administration Furosemide 60 mg 04/23/24 12:29 04/23/24 12:46 Furosemide 100 Mg/10 Ml Vial IVPUSH 04/23/24 12:30 60 mg ONCE ONE Administration Protocol Furosemide 40 mg 04/24/24 09:00 04/25/24 08:47 Furosemide 40 Mg/4 Ml Vial IVPUSH 40 mg BID@0900,1800 LESLI Administration Protocol Hydralazine HCl 25 mg 04/26/24 09:00 04/26/24 20:54 Hydralazine Hcl 25 Mg Tablet PO 25 mg TID LESLI Administration Protocol Hydralazine HCl 25 mg 04/27/24 21:00 04/27/24 21:23 Hydralazine Hcl 25 Mg Tablet PO 25 mg TID LESLI Administration Protocol Hydromorphone HCl 0.5 mg 04/27/24 23:40 04/27/24 23:51 Hydromorphone Hcl 0.5 Mg/0.5 Ml Syringe IVPUSH 04/27/24 23:41 Not Given ONCE ONE Protocol Ceftriaxone Sodium 1 gm/ 50 mls @ 100 mls/hr 04/23/24 12:29 04/23/24 13:19 Sodium Chloride IV 04/23/24 12:58 Infused ONCE ONE Infusion Azithromycin 500 mg/ Sodium 250 mls @ 125 mls/hr 04/23/24 12:29 04/23/24 14:50 Chloride IV 04/23/24 14:28 Infused ONCE ONE Infusion Doxycycline Hyclate 100 mg/ 250 mls @ 166.67 mls/hr 04/23/24 21:00 04/26/24 10:00 Sodium Chloride IV Infused BID LESLI Infusion Ceftriaxone Sodium 1 gm/ 50 mls @ 100 mls/hr 04/23/24 16:15 04/25/24 17:11 Sodium Chloride IV Infused Q24H [facility] Infusion Albumin Human 100 mls @ 133.333 mls/hr 04/23/24 20:15 04/23/24 21:04 Kedbumin 25 % IV 04/23/24 20:59 Infused Q1H [facility] Infusion Acetaminophen 1,000 mg in 100 mls @ 400 mls/hr 04/23/24 20:45 04/23/24 21:17 Ofirmev IV 04/23/24 20:59 Infused ONCE ONE Infusion Doxycycline Hyclate 100 mg/ 250 mls @ 166.67 mls/hr 04/27/24 01:15 04/27/24 03:15 Sodium Chloride IV Infused Q12H LELSI Infusion Sodium Chloride 1,000 mls @ 80 mls/hr 04/27/24 08:45 04/27/24 13:03 Ns IVCONT Infused .[id number] [facility] Infusion Acetaminophen 1,000 mg in 100 mls @ 400 mls/hr 04/27/24 23:42 04/28/24 00:29 Ofirmev IV 04/27/24 23:56 Infused ONCE ONE Infusion Metoprolol Succinate 50 mg 04/25/24 09:00 04/25/24 08:59 Metoprolol Succinate Er 50 Mg Tab.Er.24h PO 50 mg DAILY LES[facility] Administration Protocol Sodium Zirconium Cyclosilicate 10 gm 04/24/24 09:42 04/24/24 10:57 Sodium Zirconium Cyclosilicate 10 Gm Powd.Pack PO 04/24/24 09:43 10 gm ONCE ONE Administration Medical Decision Making Medical Decision Making MDM Narrative: ED bed 9, Adolfo Lowry, 83-year-old male with a past medical history of congestive heart failure of 20-30% (echocardiogram 03/13/2022), aortic valve replacement, diabetes, hypertension, COPD/asthma who presents to the emergency room fever, weakness, change in mental status and cough.The patient lives at home with his daughter. After t since his hospitalization for CHF on 04/09/2025, he was feeling weak. He did have a visiting nurse who noted weight gain and increased his Lasix from 40 mg once a day to 40 mg twice a day in his Lasix was decreased to 40 mg daily. He had trouble walk yesterday secondary to weakness. Today he had a fever at home of 100.5 degrees F. he developed a cough last night and the cough was worse today. At home, O2 saturation monitor was 87%. Given his progressive weakness in his lethargy his daughter called an ambulance. Vital signs, fever 101.2 degrees F rectally. Patient does wake up and did answer some questions but falls asleep without stimulation. Patient's lung exam did reveal rales and rhonchi, trace pitting edema bilaterally symmetric otherwise unremarkable. Differential diagnosis: ?Includes but is not limited to pneumonia, pulmonary edema, bronchitis, urinary tract infection, stroke, cerebellar bleed, electrolyte abnormalities Course: 12:51 My interpretation patient's laboratory evaluation as follows: WBC was normal 10,000 with a slight left shift of 77 neutrophils. Chronic normocytic anemia with an H&H of 11.9 and 38.2. Platelet count was normal. Coags were normal. BUN creatinine were elevated 75 and 4.61. These values are above his baseline from July 2023 but similar to his recent admission on 04/05/2024. Urinalysis was positive for protein and glucose with nondiagnostic microscopic evaluate r. COVID-19, influenza and RSV. Patient's BNP is markedly elevated that 12,068. Patient's troponin was also elevated 141.1 compared to 45.8 on 04/05/2024. Patient's 12 EKG did not reveal any ST segment elevation or depression. I will repeat the patient's troponin in 3 hours at 13:45 hours. My interpretation patient's chest x-ray increased interstitial markings more on the right than on the left which could be consistent with congestive heart failure verses pneumonia. I did order ceftriaxone 1 g IV and azithromycin 500 mg IV to cover the patient for possible bacterial pneumonia. I also ordered Lasix 60 mg IV. Given his change in mental status I will obtain a CT scan of the head to rule out stroke, bleed but I suspect that his change in mental status his encephalopathy. 15:[address] scan of the patient's brain did not reveal any acute findings to explain his altered mental status. The patient's troponin increased from 141.1 to179, this is less than a 50% delta which is reassuring. The elevation is probably related to his chronic renal disease. The patient's presentation was discussed with the covering hospitalist Jacqueline. Admission/Observation Consideration of admission/observation: Escalation of care including admission/observation considered (Yes) Lab Data MDM Lab Attestation statement: I reviewed the patient's lab results. 04/29/24 14:54 04/29/24 14:54 Labs: Lab Results 04/23/24 04/23/24 04/23/24 Range/Units 10:42 10:53 11:10 WBC 10.0 (4.8-10.8) X10*3/uL RBC 4.76 (4.60-5.80) X10*6/uL Hgb 11.9 L (14.0-18.0) g/dl Hct 38.2 L (42.0-52.0) % MCV 80.3 (80.0-98.0) fL MCH 25.0 L (27.0-33.0) pg MCHC 31.2 (31.0-36.0) g/dl RDW 16.6 H (11.0-16.0) % Plt Count 227 (160-400) X10*3/uL MPV 8.4 L (9.4-12.4) fL Immature Gran % (Auto) 0.7 H (0.0-0.4) % Neut % (Auto) 77.1 H (45-73) % Lymph % (Auto) 9.4 L (20-40) % Towner % (Auto) 10.4 (2-11) % Eos % (Auto) 1.8 (0-4) % Baso % (Auto) 0.6 (0-2) % Lymph # (Auto) 0.9 L (1.2-4.9) X10*3/uL Towner # (Auto) 1.0 (0.1-1.2) X10*3/uL Eos # (Auto) 0.2 (0.0-0.4) X10*3/uL Baso # (Auto) 0.1 (0.0-0.2) X10*3/uL Abs Immat Gran (auto) 0.07 H (0.00-0.03) X10*3/uL Absolute Neuts (auto) 7.7 (2.0-8.3) x10*3/uL Absolute Nucleated RBC 0.000 (0.0-0.012) X10*3/uL Nucleated RBC % (auto) 0.0 (0.0-0.2) /100WBC PT 13.7 H (10.9-12.4) SEC INR 1.2 H (0.9-1.1) APTT 31.5 (26.0-36.8) SEC VBG pH (7.32-7.43) VBG pCO2 mmHg VBG pO2 mmHg VBG HCO3 (22-26) mmol/L VBG O2 Saturation % VBG Base Excess mmol/L Sodium 142 (135-145) mmol/L Potassium 5.0 D (3.3-5.1) mmol/L Chloride 108 (96-108) mmol/L Carbon Dioxide 21 L (22-29) mmol/L Anion Gap 18 (12-20) BUN 75 H (9-16) mg/dL Creatinine 4.61 H* (0.5-1.4) mg/dL Estim Creat Clear Calc 11.6 Estimated GFR 12 Random Glucose 129 H (60-115) mg/dL Lactic Acid 1.5 (0.5-2.0) mmol/L Calcium 9.7 (8.4-10.2) mg/dL Total Bilirubin 1.1 H (0.0-1.0) mg/dL AST 22 (5-37) U/L ALT 27 (0-40) U/L Alkaline Phosphatase 102 (39-117) U/L Troponin I High Sens 141.1 H* D (<3.5-35.0) ng/L B-Natriuretic Peptide 71630 H (<100) pg/mL Total Protein 7.5 (6.5-8.0) g/dL Albumin 3.9 (3.5-5.0) g/dL Urine Color Urine Appearance Urine pH (5.0-9.0) Ur Specific [place] (1.005-1.025) Urine Protein (Neg-Trace) mg/dL Urine Glucose (UA) (Negative) mg/dL Urine Ketones (Negative) mg/dL Urine Blood (Negative) Urine Nitrite (Negative) Ur Leukocyte Esterase (Negative) Urine RBC (0-2) /HPF Urine WBC (0-5) /HPF Ur Squamous Epith Cells (0-2) /HPF Urine Bacteria (None Seen) Hyaline Casts (0-2) /LPF Granular Casts Influenza Type A (PCR) NEGATIVE (Negative) Influenza Type B (PCR) NEGATIVE (Negative) RSV RNA Qual (PCR) NEGATIVE (Negative) SARS-CoV-2 RNA (RT-PCR) NEGATIVE (Negative) 04/23/24 04/23/24 04/23/24 Range/Units 11:11 13:49 13:54 WBC (4.8-10.8) X10*3/uL RBC (4.60-5.80) X10*6/uL Hgb (14.0-18.0) g/dl Hct (42.0-52.0) % MCV (80.0-98.0) fL MCH (27.0-33.0) pg MCHC (31.0-36.0) g/dl RDW (11.0-16.0) % Plt Count (160-400) X10*3/uL MPV (9.4-12.4) fL Immature Gran % (Auto) (0.0-0.4) % Neut % (Auto) (45-73) % Lymph % (Auto) (20-40) % Towner % (Auto) (2-11) % Eos % (Auto) (0-4) % Baso % (Auto) (0-2) % Lymph # (Auto) (1.2-4.9) X10*3/uL Towner # (Auto) (0.1-1.2) X10*3/uL Eos # (Auto) (0.0-0.4) X10*3/uL Baso # (Auto) (0.0-0.2) X10*3/uL Abs Immat Gran (auto) (0.00-0.03) X10*3/uL Absolute Neuts (auto) (2.0-8.3) x10*3/uL Absolute Nucleated RBC (0.0-0.012) X10*3/uL Nucleated RBC % (auto) (0.0-0.2) /100WBC PT (10.9-12.4) SEC INR (0.9-1.1) APTT (26.0-36.8) SEC VBG pH 7.41 (7.32-7.43) VBG pCO2 31 mmHg VBG pO2 51 mmHg VBG HCO3 20 L (22-26) mmol/L VBG O2 Saturation 77.0 % VBG Base Excess -3.4 mmol/L Sodium (135-145) mmol/L Potassium (3.3-5.1) mmol/L Chloride (96-108) mmol/L Carbon Dioxide (22-29) mmol/L Anion Gap (12-20) BUN (9-16) mg/dL Creatinine (0.5-1.4) mg/dL Estim Creat Clear Calc Estimated GFR Random Glucose (60-115) mg/dL Lactic Acid (0.5-2.0) mmol/L Calcium (8.4-10.2) mg/dL Total Bilirubin (0.0-1.0) mg/dL AST (5-37) U/L ALT (0-40) U/L Alkaline Phosphatase (39-117) U/L Troponin I High Sens 179.5 H* (<3.5-35.0) ng/L B-Natriuretic Peptide (<100) pg/mL Total Protein (6.5-8.0) g/dL Albumin (3.5-5.0) g/dL Urine Color Yellow Urine Appearance Clear Urine pH 5.5 (5.0-9.0) Ur Specific [place] 1.015 (1.005-1.025) Urine Protein 300 (3+) H (Neg-Trace) mg/dL Urine Glucose (UA) 500 H (Negative) mg/dL Urine Ketones Negative (Negative) mg/dL Urine Blood Negative (Negative) Urine Nitrite Negative (Negative) Ur Leukocyte Esterase Negative (Negative) Urine RBC 0-2 (0-2) /HPF Urine WBC 0-5 (0-5) /HPF Ur Squamous Epith Cells 0-2 (0-2) /HPF Urine Bacteria None Seen (None Seen) Hyaline Casts 3-5 (0-2) /LPF Granular Casts Present Influenza Type A (PCR) (Negative) Influenza Type B (PCR) (Negative) RSV RNA Qual (PCR) (Negative) SARS-CoV-2 RNA (RT-PCR) (Negative) Independent Interpretation I performed an independent interpretation of an: EKG and Plain X-Ray Interpretation: My interpretation patient's one-view chest x-ray is as follows: Increased interstitial markings right greater than left concerning for pneumonia versus his pulmonary edema ent's troponin was elevated at 141 which is higher than his previous values of 45 My interpretation patient's 12 EKG done at 10:30 hours is as follows: Sinus rhythm with a first-degree AV block with a rate of 89 and a IA interval of 220 milliseconds, normal QRS duration, prolonged QTC of 479 milliseconds inverted T- waves in 1 and aVL, no ST segment elevation, less than [address] segment depression V5 and V6,, no PACs, no PVCs. Compared to EKG dated 04/05/2024 at 10:20 hours the inverted T-waves in lead 1 in aVL are new. The patient did have ST segment depression V4 through V6 which appeared to be deeper then today's EKG. Radiology Impression Discussion of test interpretation with radiology: I have reviewed the radiologist's reading. Radiologist Impression: XR chest 1V IMPRESSION: Central vascular congestion and mild pulmonary edema. Electronically signed by: Alex Gaitan DO 04/23/2024 12:[address] head/brain wo IV con IMPRESSION: No acute intracranial pathology. Dictated By: Osmani Loya MD Independent Historian Clinical information obtained from an independent historian. History obtained from or confirmed by: Other (Daughter) External Record Review External record reviewed: Inpatient record Critical Care Time Critical Care Time Critical Care Time: Yes Total Critical Care Time: 45 Attestation: Critical Care: The patient was critically ill with a high probability of imminent or life threatening deterioration. I spent greater than 30 minutes of discontinuous time evaluating the patient,delivering critical care at the bedside, discussing and evaluating pertinent data with consultants. Critical care time does not include time spent performing separately billable procedures or teaching. Total time spent performing critical care was 45 minutes. Discharge Plan Discharge Clinical Impression: Pulmonary edema, Pneumonia, Altered mental status Patient Disposition: Admitted As Inpatient Interventions: Admission Worksheet (ED) Last Done: 04/24/24 08:21 Discharge Date/Time: 04/24/24 09:24
[2024-04-23] MEDS: Furosemide 100 MG/10 ML VIAL 60 MG IVPUSH (12:46)
[2024-04-23] MEDS: Azithromycin 500 MG in 0.9 % Sodium Chloride 250 ML 125 MG IV (12:46)
[2024-04-23] MEDS: cefTRIAXone sodium 1 GM in 0.9 % Sodium Chloride 50 ML IV ×2 (12:46→17:15)
--- NOTE | 2024-04-23 12:55 | PC.NURSE ---
medication administered per provider order.
--- NOTE | 2024-04-23 13:15 | PC.NURSE ---
pt to CT at this time.
[2024-04-23 13:58] LABS: VBG Base Excess -3.4 mmol/L; VBG HCO3 20 mmol/L (22-26); VBG pCO2 31 mmHg; VBG pH 7.41 (7.32-7.43); VBG pO2 51 mmHg
[2024-04-23 13:58] LABS: Venous Blood Gas Refer to POC result
--- NOTE | 2024-04-23 13:58 | PC.NURSE ---
pt seems to be increasingly lethargic at this time. pt nonresponsive to verbal stimuli. only responsive to physical stimuli/sternal rub. pt not answering questions appropriately. pt seems to be extremely weak. MD notified/aware. repeat troponin as well as added VBG obtained/sent to lab by tech. pt remains on 2L via NC. no sob/wob noted. pt positioned upright to promote patent airway. plan of care ongoing. call bhatti placed within reach.
[2024-04-23 14:19] LABS: Troponin-I High Sensitivity 179.5 ng/L (<3.5-35.0)
--- NOTE | 2024-04-23 15:57 | P.HPHOSP_ITS ---
History of Present Illness Date of Service: 04/23/24 Chief Complaint: SOB 83-year-old man with a history of congestive heart failure, aortic valve replacement, diabetes mellitus, hypertension, COPD. He presented to the emergency department with mental status changes, lethargy. Patient was recently hospitalized at [facility] for shortness of breaths and weight gain. He was treated for congestive heart failure and treated with IV diuretics. He was discharged home with daughter. Apparently yesterday he became short of breath and developed a fever with a cough and increased swelling of lower extremities and reported feeling generally unwell few days. He became more lethargic today. In the ER, BNP was noted to be 12,068, troponin 141.1, EKG did not show any ischemic changes. Patient did have 1 reading of hypoxia with oxygen saturation of 89% 8 he was placed on 2 L of oxygen via nasal cannula. Chest x-ray showing central vascular congestion and mild pulmonary edema. Head CT negative for acute abnormality. In the ER, he received Tylenol per rectum, IV Lasix, Rocephin, azithromycin. Plan is to admit patient for further management and treatment of acute congestive heart failure. Review of Systems 2 Review of Systems: Denies any recent fever chills or decrease in appetite respiratory denies any shortness of breath coverage production cardiovascular is adjustment of any PND or edema gastrointestinal denies any dysphagia abdominal pain nausea vomiting or diarrhea genitourinary denies any dysuria frequency or hematuria musculoskeletal denies any joint pain or swelling neuropsych denies any weakness or seizures all other systems reviewed are negative [facility] Medical History (Updated 04/25/24 @ 12:05 by Mirta Jerry, JAMEE, SR. [employer]-) KAILEY (acute kidney injury) Pneumonia CKD (chronic kidney disease) stage 3, GFR 30-59 ml/min Type 2 diabetes mellitus CHF (congestive heart failure) Hypertension Diabetes Asthma COPD (chronic obstructive pulmonary disease) CHF (congestive heart failure) Social History Household Members: Family Housing: House Do you presently have visiting nurse or other home services: No Alcohol intake: never Comment: refusing alarms Patient Tobacco Use Status: Former Tobacco user Smoked in Last 30 Days: No Second Hand Smoke Exposure: No Use of substances other than those prescribed or required for medical reasons: No Currently Displaying Signs/Symptoms of Drug Intoxication Withdrawal: No Have you been hit, kicked, punched, or otherwise hurt by someone within the past year? If so, by whom?: No Do you feel safe in your current relationship?: Yes Is there a partner from a previous relationship who is making you feel unsafe now?: No Are you made to feel afraid or neglected: No Advance Directives: Yes Advance Directives Information Provided: Yes Advance Directives on File: No Advance Directives Date on File: 03/13/22 Do you have a plan to hurt others: No Plan Recently lost weight without trying: Unsure Nutrition Risks: Poor intake 0-25% >4 days service: No Current occupational status: retired [employer] Allergies Allergy/AdvReac Type Severity Reaction Status Date / Time No Known Allergies Allergy Verified 04/23/24 10:23 Home Medications ?Medication ?Instructions ?Recorded ?Confirmed ?Last Taken ?Type albuterol sulfate 90 mcg/actuation 2 puff PO Q6H PRN wheezing 03/11/22 04/23/24 04/05/24 08:00 History aerosol inhaler aspirin 81 mg tablet,delayed 81 mg PO DAILY 03/11/22 04/23/24 04/05/24 08:00 History release atorvastatin 80 mg tablet 1 tab PO DAILY 03/11/22 04/23/24 04/05/24 08:00 History gabapentin 300 mg capsule 1 cap PO BEDTIME 03/11/22 04/23/24 04/04/24 History montelukast 10 mg tablet 1 tab PO DAILY 03/11/22 04/23/24 04/05/24 08:00 History glipizide 10 mg tablet 10 mg PO BID 07/31/23 04/23/24 04/05/24 08:00 History insulin degludec 200 unit/mL (3 65 unit subcut DAILY 07/31/23 04/23/24 04/05/24 08:00 History mL) subcutaneous pen (Tresiba FlexTouch U-200 insulin) fluticasone fur. 200 mcg-umeclid 1 ea inhalation DAILY 04/05/24 04/23/24 04/05/24 History 62.5 mcg-vilant 25 mcg inhalat.powder (Trelegy Ellipta) dapagliflozin propanediol 10 mg 10 mg PO DAILY 04/23/24 04/23/24 Unknown History tablet (Farxiga) Vitamin D2 1 mg PO QWEEK 04/24/24 04/24/24 04/17/24 History Physical Exam 2 Vital Signs and Narrative: Vital Signs: Last Vital Signs Temp 98.7 F 04/23/24 14:48 Pulse 77 04/23/24 14:48 Resp 12 04/23/24 14:48 BP 107/70 04/23/24 14:48 Pulse Ox 100 04/23/24 14:48 O2 Del Method Nasal Cannula 04/23/24 14:48 O2 Flow Rate 2 04/23/24 14:48 BMI result Body Mass Index 20.7 Lethargic, arousable to stimuli only head is normocephalic atraumatic eyes pupils are PERRLA sclera is anicteric mouth throat mucous membranes are intact and moist neck is supple no lymphadenopathy, no JVD noted lung sounds are dim/rales heart regular rate rhythm, clear S1, S2 positive bowel sounds, abdomen is soft, nontender neuro patient is sleeping Results Labs 04/24/24 05:07 04/25/24 06:23 Labs: Laboratory Results - last 24 hr 04/23/24 04/23/24 04/23/24 10:42 10:53 11:10 MCV 80.3 MCH 25.0 L MCHC 31.2 RDW 16.6 H Plt Count 227 MPV 8.4 L Immature Gran % (Auto) 0.7 H Neut % (Auto) 77.1 H Lymph % (Auto) 9.4 L [place] % (Auto) 10.4 Eos % (Auto) 1.8 Baso % (Auto) 0.6 Lymph # (Auto) 0.9 L [place] # (Auto) 1.0 Eos # (Auto) 0.2 Baso # (Auto) 0.1 Abs Immat Gran (auto) 0.07 H Absolute Neuts (auto) 7.7 Absolute Nucleated RBC 0.000 Nucleated RBC % (auto) 0.0 PT 13.7 H INR 1.2 H APTT 31.5 VBG pH VBG pCO2 VBG pO2 VBG HCO3 VBG O2 Saturation VBG Base Excess Anion Gap 18 Estim Creat Clear Calc 11.6 Estimated GFR 12 Random Glucose 129 H Lactic Acid 1.5 Calcium 9.7 Total Bilirubin 1.1 H AST 22 ALT 27 Alkaline Phosphatase 102 Troponin I High Sens 141.1 H* D B-Natriuretic Peptide 28889 H Total Protein 7.5 Albumin 3.9 Urine Color Urine Appearance Urine pH Ur Specific [place] Urine Protein Urine Glucose (UA) Urine Ketones Urine Blood Urine Nitrite Ur Leukocyte Esterase Urine RBC Urine WBC Ur Squamous Epith Cells Urine Bacteria Hyaline Casts Granular Casts Influenza Type A (PCR) NEGATIVE Influenza Type B (PCR) NEGATIVE RSV RNA Qual (PCR) NEGATIVE SARS-CoV-2 RNA (RT-PCR) NEGATIVE 04/23/24 04/23/24 04/23/24 11:11 13:49 13:54 MCV MCH MCHC RDW Plt Count MPV Immature Gran % (Auto) Neut % (Auto) Lymph % (Auto) [place] % (Auto) Eos % (Auto) Baso % (Auto) Lymph # (Auto) [place] # (Auto) Eos # (Auto) Baso # (Auto) Abs Immat Gran (auto) Absolute Neuts (auto) Absolute Nucleated RBC Nucleated RBC % (auto) PT INR APTT VBG pH 7.41 VBG pCO2 31 VBG pO2 51 VBG HCO3 20 L VBG O2 Saturation 77.0 VBG Base Excess -3.4 Anion Gap Estim Creat Clear Calc Estimated GFR Random Glucose Lactic Acid Calcium Total Bilirubin AST ALT Alkaline Phosphatase Troponin I High Sens 179.5 H* B-Natriuretic Peptide Total Protein Albumin Urine Color Yellow Urine Appearance Clear Urine pH 5.5 Ur Specific [place] 1.015 Urine Protein 300 (3+) H Urine Glucose (UA) 500 H Urine Ketones Negative Urine Blood Negative Urine Nitrite Negative Ur Leukocyte Esterase Negative Urine RBC 0-2 Urine WBC 0-5 Ur Squamous Epith Cells 0-2 Urine Bacteria None Seen Hyaline Casts 3-5 Granular Casts Present Influenza Type A (PCR) Influenza Type B (PCR) RSV RNA Qual (PCR) SARS-CoV-2 RNA (RT-PCR) Imaging Radiologist's Impressions: Impressions Chest X-Ray 04/23/24 11:45 IMPRESSION: Central vascular congestion and mild pulmonary edema. Electronically signed by: Alex Gaitan DO 04/23/2024 12:45 PM EDT RP Head CT 04/23/24 13:10 IMPRESSION: No acute intracranial pathology. Electronically signed by: Osmani Loya MD 04/23/2024 02:21 PM EDT RP Assessment and Plan (1) Congestive heart failure: Status: Acute Plan 83 year old man presenting with CHF and Pneumonia Acute hypoxic respiratory failure secondary to acute exacerbation of heart failure with reduced ejection fraction and community-acquired pneumonia Monitor on telemetry BNP 12,068 Echocardiogram at [facility] [place] 11/2023 showed EF of 35-40% with moderate global hypokinesis, bioprosthetic aortic valve neg covid, flu, rsv Cardiology consultation IV Lasix 40 mg b.i.d. Supplemental oxygen to keep oxygen saturation greater than 90% Daily weights, strict intake and output Community-acquired pneumonia Due to fevers and hypoxia will treat for infectious source as well Rocephin and doxycycline Supplemental oxygen to keep oxygen saturation greater than 90% Follow blood cultures Elevated troponin Peaked at 179.5 Secondary to acute congestive heart failure No ischemic changes noted on EKG Cardiology to follow KAILEY likely cardiorenal Likely secondary to acute heart failure Continue diuresis If no improvement seen consult Nephrology Diabetes mellitus type 2 Sliding scale, ADA diet Hypertension Soft blood pressure readings Hold antihypertensives for now COPD/asthma No exacerbation Albuterol as needed DVT prophylaxis with heparin Full code Quality Stroke Does the patient have a stroke diagnosis?: No VTE Prior VTE?: No VTE Risk Level:: Medical - moderate - high VTE Device Contraindication: Treatment Not Indicated VTE Drug Contraindication: N/A - Med Ordered
--- NOTE | 2024-04-23 16:35 | PHA.MEDREC ---
Pharmacy Consult ? Medication Reconciliation Pharmacy has completed the medication reconciliation. Spoke with patients daughter at bedside. She had an updated medication list with changes from last visit. She states his Tresiba is now 65 units. She confirmed his farxiga is 10 mg. She reports he has been taking the changed/new medications for about a week now. She confirmed that he stopped amlodipine, torsemide, and the higher dose of metoprolol. Finasteride was on the med list she brought in but as I brought it to her attention she did not think he was taking it anymore. It is also not on his discharge papers. Patient's daughter said if she finds the bottle within his medications at home she will give us a call. She reports that he did not take any medications today.
[2024-04-23] MEDS: Heparin Sodium,Porcine 5,000 UNIT/ML VIAL 5000 UNIT SUBCUT (17:15)
[2024-04-23 18:37] LABS: Glucose, Whole Blood 87 mg/dL (60-115)
--- NOTE | 2024-04-23 18:41 | PC.NURSE ---
16Fr patel catheter w/ 10ml balloon inserted at this time 475ml of clear, dark yellow urine noted immediately post output. temp sensing patel utilized as pt was originally febrile on ED arrival. pt tolerated insertion well.
[2024-04-23] MEDS: Acetaminophen 325 MG TABLET 650 MG PO (19:30)
--- NOTE | 2024-04-23 19:32 | PC.NURSE ---
this rn assumed care of pt, pt alert and responsive at this time, pt noted to be tremulous and shivering. pt given PO tylenol PRN, aware of core temp 102.4.
--- NOTE | 2024-04-23 19:35 | MHC.EDTECH ---
This tech took over care of patient at 1900,rounds and vitals completed,patient has a core temp of 102.4,HR 111,RN Chiquita was made aware,and is at bedside,this tech will obtain a lactic at this time per request of the hospitalist,gertrude bhatti in reach
--- NOTE | 2024-04-23 19:48 | MHC.EDTECH ---
Lactic obtained at this time, sent to lab,vitals taken
[2024-04-23 20:08] LABS: Lactic Acid 2.8 mmol/L (0.5-2.0)
[2024-04-23] MEDS: Albumin Human 25 % 100 ML 133.33 ML IV (20:18)
--- NOTE | 2024-04-23 20:18 | PC.NURSE ---
critical result- lactic 2.8. aware. at this time, pt is meeting sepsis criteria, at bedside, pt medicated per mar. as pt is already admitted, blood cultures previously drawn. pt condition does not allow for IV fluids per kg, pt medicated with albumin per mar.
--- NOTE | 2024-04-23 20:29 | MHC.EDTECH ---
This tech gave report to GIL Sarah
[2024-04-23] MEDS: Acetaminophen 1,000 MG/100 ML PIGGYBACK 400 MG IV (21:00)
[2024-04-23] MEDS: Doxycycline Hyclate 100 MG in 0.9 % Sodium Chloride 250 ML 166.67 MG IV (21:01)
[2024-04-23 21:02] LABS: Glucose, Whole Blood 70 mg/dL (60-115)
--- NOTE | 2024-04-23 21:03 | PC.NURSE ---
provider aware of pt core temp, pt medicated per mar with IV tylenol.
--- NOTE | 2024-04-23 21:30 | PC.NURSE ---
cooling blanket placed on pt at this time per order, pt temperature remains 101.3.
[2024-04-23 21:53] LABS: Reflex Lactate? Lactic Acid Added
[2024-04-23 22:29] LABS: ~Lactic Acid-LAB USE ONLY 1.2 mmol/L (0.5-2.0)
--- NOTE | 2024-04-23 22:55 | PC.NURSE ---
per , remove cooling blanket at this time. temperature reduced. vss.
--- NOTE | 2024-04-23 23:01 | MHC.EDTECH ---
This tech took over care of patient at 2300,rounds completed,assisted RN with removing the cooling blanket,pt is resting quietly,call bhatti in reach
[2024-04-23] MEDS: 0.9 % Sodium Chloride Flush 3 ML SYRINGE IVFLUSH (23:56)
[2024-04-24] VITALS (16 sets, daily range): BP systolic 100–144; BP diastolic 54–66; PULSE 71–103; RESP 18–28; TEMP 36.1–38.5; O2SAT 95–99; BMI 19.8
--- NOTE | 2024-04-24 02:44 | MHC.EDTECH ---
Patient drank 120MLS of diet emmanuel nick,patient is alert at this time,resting quietly.
[2024-04-24] MEDS: Acetaminophen 325 MG TABLET 650 MG PO (04:24)
[2024-04-24] MEDS: Heparin Sodium,Porcine 5,000 UNIT/ML VIAL 5000 UNIT SUBCUT ×2 (04:25→15:57)
--- NOTE | 2024-04-24 04:35 | MHC.EDTECH ---
Patient's temp is 100.8 at this time,resp.rate is elevated RN is aware at bedside,patient drank 120MLS of diet emmanuel nick.
[2024-04-24 05:13] LABS: Hematocrit 38.4 % (42.0-52.0); Hemoglobin 12.1 g/dl (14.0-18.0); Mean Corpuscular HGB Conc 31.5 g/dl (31.0-36.0); Mean Corpuscular Hemoglobin 25.3 pg (27.0-33.0); Mean Corpuscular Volume 80.3 fL (80.0-98.0); Mean Platelet Volume 8.3 fL (9.4-12.4); Platelet Count 184 X10*3/uL (160-400); Red Blood Count 4.78 X10*6/uL (4.60-5.80); Red Cell Distribution Width 16.9 % (11.0-16.0); White Blood Count 14.1 X10*3/uL (4.8-10.8)
[2024-04-24 05:33] LABS: Alanine Aminotransferase 39 U/L (0-40); Albumin Level 3.8 g/dL (3.5-5.0); Alkaline Phosphatase 125 U/L (39-117); Anion Gap 23 (12-20); Aspartate Amino Transferase 41 U/L (5-37); Bilirubin Total 1.6 mg/dL (0.0-1.0); Blood Urea Nitrogen 81 mg/dL (9-16); Calcium 9.1 mg/dL (8.4-10.2); Carbon Dioxide 15 mmol/L (22-29); Chloride 109 mmol/L (96-108); Creatinine Clr Calc Pharmacy 10.4; Estimated Glomerular Filt Rate 11; Glucose Random 84 mg/dL (60-115); Potassium 5.3 mmol/L (3.3-5.1); Sodium 142 mmol/L (135-145); Total Protein 6.9 g/dL (6.5-8.0)
--- NOTE | 2024-04-24 05:35 | PC.NURSE ---
critical result received- creatinine 5.12. aware.
[2024-04-24 05:36] LABS: Band Neutrophils Percent 5 % (3-5); Eosinophils Absolute Manual 0.4 X10*3/uL (0.0-0.4); Eosinophils Percent Manual 3 % (0-4); Monocytes Absolute Manual 0.3 X10*3/uL (0.1-1.2); Monocytes Percent Manual 2 % (2-11); Neutrophils Absolute Manual 13.4 X10*3/uL (2.0-8.3); Neutrophils Percent Manual 90 % (45-73)
[2024-04-24 05:37] LABS: Acanthocytes 1+ (0-2) /OIF; Microcytosis 1+ (5-14) /OIF; Ovalocytes 1+ (5-14) /OIF; Platelet Estimate NORMAL (NORMAL); Platelet Morphology Comment NORMAL; RBC Morphology NOTED
--- NOTE | 2024-04-24 05:44 | MHC.EDTECH ---
Hourly rounds and vitals completed,temp is 101.3,RN is aware,emptied 225MLS from [place],patient was repositioned to comfort,call bhatti in reach
[2024-04-24 05:52] LABS: B Type Natriuretic Peptide 11983 pg/mL (<100)
[2024-04-24 07:29] LABS: Glucose, Whole Blood 87 mg/dL (60-115)
[2024-04-24] MEDS: Doxycycline Hyclate 100 MG in 0.9 % Sodium Chloride 250 ML 166.67 MG IV ×2 (08:51→23:24)
[2024-04-24] MEDS: Furosemide 40 MG/4 ML VIAL IVPUSH ×2 (08:53→17:50)
[2024-04-24] MEDS: 0.9 % Sodium Chloride Flush 3 ML SYRINGE IVFLUSH ×2 (08:56→15:57)
[2024-04-24 09:34] LABS: Adenovirus PCR Not Detected (Not Detect.); Bordetella parapertussis PCR Not Detected (Not Detect.); Bordetella pertussis PCR Not Detected (Not Detect.); Chlamydia pneumoniae PCR Not Detected (Not Detect.); Coronavirus 229E PCR Not Detected (Not Detect.); Coronavirus HKU1 PCR Not Detected (Not Detect.); Coronavirus NL63 PCR Not Detected (Not Detect.); Coronavirus OC43 PCR Not Detected (Not Detect.); Human metapneumovirus PCR Not Detected (Not Detect.); Influenza A PCR Not Detected (Not Detect.); Influenza B PCR Not Detected (Not Detect.); Mycoplasma pneumoniae PCR Not Detected (Not Detect.); Parainfluenza 1 PCR Not Detected (Not Detect.); Parainfluenza 2 PCR Not Detected (Not Detect.); Parainfluenza 3 PCR Not Detected (Not Detect.); Parainfluenza 4 PCR Not Detected (Not Detect.); RSV PCR Not Detected (Not Detect.); Rhino/Enterovirus PCR Not Detected (Not Detect.)
--- NOTE | 2024-04-24 09:37 | P.PNIM_ITS ---
Subjective Subjective Date of Service: 04/24/24 Review of Systems Follow up CHF Physical Exam 2 Vital Signs: Vital Signs: Last Vital Signs Temp 100.2 F 04/24/24 07:23 Pulse 81 04/24/24 07:23 Resp 18 04/24/24 07:23 BP 119/66 04/24/24 08:53 Pulse Ox 98 04/24/24 07:23 O2 Del Method Nasal Cannula 04/24/24 07:23 O2 Flow Rate 2 04/24/24 07:23 BMI result Body Mass Index 19.8 Appearing in no acute distress heart regular rate rhythm, clear S1, S2 positive bowel sounds, abdomen is soft, nontender neuro patient is alert x3, no focal deficits Objective Data Active Medications Acetaminophen (Acetaminophen 325 Mg Tablet) 650 mg PO Q6H PRN PRN Reason: Pain, Mild (Pain Scale 1-3), fever or headache Last Admin: 04/24/24 04:24 Dose: 650 mg Documented By: SHANE Calcium Carbonate (Calcium Carbonate 750 Mg Tab.Chew) 750 mg PO Q4H PRN PRN Reason: Heartburn Furosemide (Furosemide 40 Mg/4 Ml Vial) 40 mg IVPUSH BID@0900,1800 [facility]; Protocol Last Admin: 04/24/24 08:53 Dose: 40 mg Documented By: MARIE Glucose (Glucose Gel 15 Gm Gel..Gram.) 15 gm PO Q15M PRN; Protocol PRN Reason: per Hypoglycemia Standing Ord. Heparin Sodium (Porcine) (Heparin Sodium,Porcine 5,000 Unit/Ml Vial) 5,000 unit SUBCUT Q12H [facility] Last Admin: 04/24/24 04:25 Dose: 5,000 unit Documented By: SHANE Dextrose (D10) 250 mls @ 750 mls/hr IV Q15M PRN; Protocol PRN Reason: per Hypoglycemia Standing Ord. Doxycycline Hyclate 100 mg/ (Sodium Chloride) 250 mls @ 166.67 mls/hr IV BID [facility] Last Admin: 04/24/24 08:51 Dose: 166.67 mls/hr Documented By: MARIE Ceftriaxone Sodium 1 gm/ (Sodium Chloride) 50 mls @ 100 mls/hr IV Q24H [facility] Last Infusion: 04/23/24 17:45 Dose: Infused Documented By: AUBREY Insulin Human Lispro (Insulin Lispro 100 Unit/Ml 3 Ml Vial) 0 unit SUBCUT QIDACHS [facility]; Protocol Last Admin: 04/24/24 08:12 Dose: Not Given Documented By: HANG Non-Admin Reason: No Insulin Coverage Comments: POC 87, no insulin needed Magnesium Hydroxide (Milk Of Magnesia 30 Ml Oral.Susp) 30 ml PO DAILY PRN PRN Reason: Constipation Melatonin (Melatonin 3 Mg Tablet) 6 mg PO BEDTIME PRN PRN Reason: Insomnia Ondansetron HCl (Ondansetron Hcl 4 Mg/2 Ml Vial) 4 mg IVPUSH Q8H PRN PRN Reason: Nausea and Vomiting Sodium Chloride (0.9 % Sodium Chloride Flush 3 Ml Syringe) 3 ml IVFLUSH [facility] Last Admin: 04/24/24 08:56 Dose: 3 ml Documented By: MARIE Labs 04/24/24 05:07 04/24/24 05:07 Labs: Laboratory Results - last 24 hr 04/23/24 04/23/24 04/23/24 10:42 10:53 11:10 MCV 80.3 MCH 25.0 L MCHC 31.2 RDW 16.6 H Plt Count 227 MPV 8.4 L Immature Gran % (Auto) 0.7 H Neut % (Auto) 77.1 H Lymph % (Auto) 9.4 L [place] % (Auto) 10.4 Eos % (Auto) 1.8 Baso % (Auto) 0.6 Lymph # (Auto) 0.9 L [place] # (Auto) 1.0 Eos # (Auto) 0.2 Baso # (Auto) 0.1 Abs Immat Gran (auto) 0.07 H Absolute Neuts (auto) 7.7 Absolute Nucleated RBC 0.000 Nucleated RBC % (auto) 0.0 Neutrophils % (Manual) Band Neutrophils % Monocytes % (Manual) Eosinophils % (Manual) Abs Neuts (Manual) Monocytes # (Manual) Eosinophils # (Manual) Platelet Estimate Plt Morphology Comment RBC Morphology Microcytosis Ovalocytes Acanthocytes (Spur) PT 13.7 H INR 1.2 H APTT 31.5 VBG pH VBG pCO2 VBG pO2 VBG HCO3 VBG O2 Saturation VBG Base Excess Anion Gap 18 Estim Creat Clear Calc 11.6 Estimated GFR 12 POC Glucose Random Glucose 129 H Lactic Acid 1.5 Lactic Acid F/U @ 2Hr Calcium 9.7 Total Bilirubin 1.1 H AST 22 ALT 27 Alkaline Phosphatase 102 Troponin I High Sens 141.1 H* D B-Natriuretic Peptide 21847 H Total Protein 7.5 Albumin 3.9 Urine Color Urine Appearance Urine pH Ur Specific [place] Urine Protein Urine Glucose (UA) Urine Ketones Urine Blood Urine Nitrite Ur Leukocyte Esterase Urine RBC Urine WBC Ur Squamous Epith Cells Urine Bacteria Hyaline Casts Granular Casts Influenza Type A (PCR) NEGATIVE Influenza Type B (PCR) NEGATIVE RSV RNA Qual (PCR) NEGATIVE SARS-CoV-2 RNA (RT-PCR) NEGATIVE 04/23/24 04/23/24 04/23/24 11:11 13:49 13:54 MCV MCH MCHC RDW Plt Count MPV Immature Gran % (Auto) Neut % (Auto) Lymph % (Auto) [place] % (Auto) Eos % (Auto) Baso % (Auto) Lymph # (Auto) [place] # (Auto) Eos # (Auto) Baso # (Auto) Abs Immat Gran (auto) Absolute Neuts (auto) Absolute Nucleated RBC Nucleated RBC % (auto) Neutrophils % (Manual) Band Neutrophils % Monocytes % (Manual) Eosinophils % (Manual) Abs Neuts (Manual) Monocytes # (Manual) Eosinophils # (Manual) Platelet Estimate Plt Morphology Comment RBC Morphology Microcytosis Ovalocytes Acanthocytes (Spur) PT INR APTT VBG pH 7.41 VBG pCO2 31 VBG pO2 51 VBG HCO3 20 L VBG O2 Saturation 77.0 VBG Base Excess -3.4 Anion Gap Estim Creat Clear Calc Estimated GFR POC Glucose Random Glucose Lactic Acid Lactic Acid F/U @ 2Hr Calcium Total Bilirubin AST ALT Alkaline Phosphatase Troponin I High Sens 179.5 H* B-Natriuretic Peptide Total Protein Albumin Urine Color Yellow Urine Appearance Clear Urine pH 5.5 Ur Specific [place] 1.015 Urine Protein 300 (3+) H Urine Glucose (UA) 500 H Urine Ketones Negative Urine Blood Negative Urine Nitrite Negative Ur Leukocyte Esterase Negative Urine RBC 0-2 Urine WBC 0-5 Ur Squamous Epith Cells 0-2 Urine Bacteria None Seen Hyaline Casts 3-5 Granular Casts Present Influenza Type A (PCR) Influenza Type B (PCR) RSV RNA Qual (PCR) SARS-CoV-2 RNA (RT-PCR) 04/23/24 04/23/24 04/23/24 18:33 19:47 20:50 MCV MCH MCHC RDW Plt Count MPV Immature Gran % (Auto) Neut % (Auto) Lymph % (Auto) [place] % (Auto) Eos % (Auto) Baso % (Auto) Lymph # (Auto) [place] # (Auto) Eos # (Auto) Baso # (Auto) Abs Immat Gran (auto) Absolute Neuts (auto) Absolute Nucleated RBC Nucleated RBC % (auto) Neutrophils % (Manual) Band Neutrophils % Monocytes % (Manual) Eosinophils % (Manual) Abs Neuts (Manual) Monocytes # (Manual) Eosinophils # (Manual) Platelet Estimate Plt Morphology Comment RBC Morphology Microcytosis Ovalocytes Acanthocytes (Spur) PT INR APTT VBG pH VBG pCO2 VBG pO2 VBG HCO3 VBG O2 Saturation VBG Base Excess Anion Gap Estim Creat Clear Calc Estimated GFR POC Glucose 87 70 Random Glucose Lactic Acid 2.8 H* Lactic Acid F/U @ 2Hr Calcium Total Bilirubin AST ALT Alkaline Phosphatase Troponin I High Sens B-Natriuretic Peptide Total Protein Albumin Urine Color Urine Appearance Urine pH Ur Specific [place] Urine Protein Urine Glucose (UA) Urine Ketones Urine Blood Urine Nitrite Ur Leukocyte Esterase Urine RBC Urine WBC Ur Squamous Epith Cells Urine Bacteria Hyaline Casts Granular Casts Influenza Type A (PCR) Influenza Type B (PCR) RSV RNA Qual (PCR) SARS-CoV-2 RNA (RT-PCR) 04/23/24 04/24/24 04/24/24 22:14 05:07 07:24 MCV 80.3 MCH 25.3 L MCHC 31.5 RDW 16.9 H Plt Count 184 MPV 8.3 L Immature Gran % (Auto) Cancelled Neut % (Auto) Cancelled Lymph % (Auto) Cancelled [place] % (Auto) Cancelled Eos % (Auto) Cancelled Baso % (Auto) Cancelled Lymph # (Auto) Cancelled [place] # (Auto) Cancelled Eos # (Auto) Cancelled Baso # (Auto) Cancelled Abs Immat Gran (auto) Cancelled Absolute Neuts (auto) Cancelled Absolute Nucleated RBC 0.000 Nucleated RBC % (auto) 0.0 Neutrophils % (Manual) 90 H Band Neutrophils % 5 Monocytes % (Manual) 2 Eosinophils % (Manual) 3 Abs Neuts (Manual) 13.4 H Monocytes # (Manual) 0.3 Eosinophils # (Manual) 0.4 Platelet Estimate NORMAL Plt Morphology Comment NORMAL RBC Morphology NOTED Microcytosis 1+ (5-14) Ovalocytes 1+ (5-14) Acanthocytes (Spur) 1+ (0-2) PT INR APTT VBG pH VBG pCO2 VBG pO2 VBG HCO3 VBG O2 Saturation VBG Base Excess Anion Gap 23 H Estim Creat Clear Calc 10.4 Estimated GFR 11 POC Glucose 87 Random Glucose 84 Lactic Acid Lactic Acid F/U @ 2Hr 1.2 Calcium 9.1 D Total Bilirubin 1.6 H AST 41 H ALT 39 Alkaline Phosphatase 125 H Troponin I High Sens B-Natriuretic Peptide 57251 H Total Protein 6.9 Albumin 3.8 Urine Color Urine Appearance Urine pH Ur Specific [place] Urine Protein Urine Glucose (UA) Urine Ketones Urine Blood Urine Nitrite Ur Leukocyte Esterase Urine RBC Urine WBC Ur Squamous Epith Cells Urine Bacteria Hyaline Casts Granular Casts Influenza Type A (PCR) Influenza Type B (PCR) RSV RNA Qual (PCR) SARS-CoV-2 RNA (RT-PCR) Assessment and Plan (1) Congestive heart failure: Status: Acute (2) KAILEY (acute kidney injury): Status: Resolved Plan 83 year old man presenting with CHF and Pneumonia Acute hypoxic respiratory failure secondary to acute exacerbation of heart failure with reduced ejection fraction and community-acquired pneumonia Monitor on telemetry BNP [id number], [id number] [place] [facility] [place] EF of 35-40% with moderate global hypokinesis, bioprosthetic aortic valve neg covid, flu, rsv Cardiology consultation IV Lasix 40 mg b.i.d. Supplemental oxygen to keep oxygen saturation greater than 90% Daily weights, strict intake and output Community-acquired pneumonia Due to fevers and hypoxia will treat for infectious source as well Rocephin and doxycycline Supplemental oxygen to keep oxygen saturation greater than 90% Follow blood cultures Elevated troponin Peaked at 179.5 Secondary to acute congestive heart failure No ischemic changes noted on EKG Cardiology to follow KAILEY likely cardiorenal, worsening Likely secondary to acute heart failure Continue diuresis consult Nephrology Hypokalemia lokelma Diabetes mellitus type 2 Sliding scale, ADA diet Hypertension Soft blood pressure readings Hold antihypertensives for now COPD/asthma No exacerbation Albuterol as needed Diabetic neuropathy Hold gabapentin for now secondary to KAILEY DVT prophylaxis with heparin Attending Dr. Coffman Full code Quality Stroke Does the patient have a stroke diagnosis?: No VTE Prior VTE?: No VTE Risk Level:: Medical - moderate - high VTE Device Contraindication: Treatment Not Indicated VTE Drug Contraindication: N/A - Med Ordered
[2024-04-24 09:38] LABS: SARS-CoV-2 PCR Not Detected (Not Detect.)
[2024-04-24 10:57] LABS: Glucose, Whole Blood 98 mg/dL (60-115)
[2024-04-24] MEDS: Sodium Zirconium Cyclosilicate 10 GM POWD.PACK PO (10:57)
--- NOTE | 2024-04-24 12:23 | PM.CNCAR ---
History of Present Illness History of Present Illness Date of Service: 04/24/24 Requesting physician: Melissa De León Chief complaint: CHF, fever Narrative: [age] gentleman with known history of bioprosthetic aortic valve replacement and single-vessel bypass surgery in the past. He is presenting for altered mental status and fever. Apparently was playing bingo with his friends but daughter said that he was having fevers before that. A day of presentation she could not wake him up and he was very confused. He also has been having significant tremors in his upper extremities. He is on gabapentin 300 mg at bedtime. His kidney function has worsened compared to before. He is denying any cough currently. He is denying any urinary complaints or abdominal pain. Chest x-ray showed congestion more concerning for heart failure other pneumonia. He is on empiric antibiotics currently. Blood cultures were sent and they are pending currently. [facility] Past Medical History Medical History Type 2 diabetes mellitus CHF (congestive heart failure) Hypertension Diabetes Asthma COPD (chronic obstructive pulmonary disease) CHF (congestive heart failure) Social History Social History Household Members: Family Housing: House Do you presently have visiting nurse or other home services: No Alcohol intake: never Comment: refusing alarms Patient Tobacco Use Status: Former Tobacco user Smoked in Last 30 Days: No Second Hand Smoke Exposure: No Use of substances other than those prescribed or required for medical reasons: No Have you been hit, kicked, punched, or otherwise hurt by someone within the past year? If so, by whom?: No Do you feel safe in your current relationship?: Yes Is there a partner from a previous relationship who is making you feel unsafe now?: No Are you made to feel afraid or neglected: No Advance Directives: Yes Advance Directives Information Provided: Yes Advance Directives on File: No Advance Directives Date on File: 03/13/22 Do you have a plan to hurt others: No Plan Recently lost weight without trying: Unsure Nutrition Risks: Poor intake 0-25% >4 days service: No Current occupational status: retired Meds Allergies Allergy/AdvReac Type Severity Reaction Status Date / Time No Known Allergies Allergy Verified 04/23/24 10:23 Active Medications: Current Medications Acetaminophen (Acetaminophen 325 Mg Tablet) 650 mg PO Q6H PRN PRN Reason: Pain, Mild (Pain Scale 1-3), fever or headache Last Admin: 04/24/24 04:24 Dose: 650 mg Calcium Carbonate (Calcium Carbonate 750 Mg Tab.Chew) 750 mg PO Q4H PRN PRN Reason: Heartburn Furosemide (Furosemide 40 Mg/4 Ml Vial) 40 mg IVPUSH BID@0900,1800 [facility]; Protocol Last Admin: 04/24/24 08:53 Dose: 40 mg Glucose (Glucose Gel 15 Gm Gel..Gram.) 15 gm PO Q15M PRN; Protocol PRN Reason: per Hypoglycemia Standing Ord. Heparin Sodium (Porcine) (Heparin Sodium,Porcine 5,000 Unit/Ml Vial) 5,000 unit SUBCUT Q12H [facility] Last Admin: 04/24/24 04:25 Dose: 5,000 unit Dextrose (D10) 250 mls @ 750 mls/hr IV Q15M PRN; Protocol PRN Reason: per Hypoglycemia Standing Ord. Doxycycline Hyclate 100 mg/ (Sodium Chloride) 250 mls @ 166.67 mls/hr IV BID [facility] Last Infusion: 04/24/24 10:51 Dose: Infused Ceftriaxone Sodium 1 gm/ (Sodium Chloride) 50 mls @ 100 mls/hr IV Q24H [facility] Last Infusion: 04/23/24 17:45 Dose: Infused Insulin Human Lispro (Insulin Lispro 100 Unit/Ml 3 Ml Vial) 0 unit SUBCUT QIDACHS [facility]; Protocol Last Admin: 04/24/24 12:23 Dose: Not Given Magnesium Hydroxide (Milk Of Magnesia 30 Ml Oral.Susp) 30 ml PO DAILY PRN PRN Reason: Constipation Melatonin (Melatonin 3 Mg Tablet) 6 mg PO BEDTIME PRN PRN Reason: Insomnia Ondansetron HCl (Ondansetron Hcl 4 Mg/2 Ml Vial) 4 mg IVPUSH Q8H PRN PRN Reason: Nausea and Vomiting Sodium Chloride (0.9 % Sodium Chloride Flush 3 Ml Syringe) 3 ml IVFLUSH QSHIFT [facility] Last Admin: 04/24/24 08:56 Dose: 3 ml Home Medications ?Medication ?Instructions ?Recorded ?Confirmed ?Last Taken ?Type albuterol sulfate 90 mcg/actuation 2 puff PO Q6H PRN wheezing 03/11/22 04/23/2424 08:00 History aerosol inhaler aspirin 81 mg tablet,delayed 81 mg PO DAILY 03/11/22 04/23/24 04/05/24 08:00 History release atorvastatin 80 mg tablet 1 tab PO DAILY 03/11/22 04/23/24 04/05/24 08:00 History gabapentin 300 mg capsule 1 cap PO BEDTIME 03/11/22 04/23/24 04/04/24 History montelukast 10 mg tablet 1 tab PO DAILY 03/11/22 04/23/24 04/05/24 08:00 History glipizide 10 mg tablet 10 mg PO BID 07/31/23 04/23/24 04/05/24 08:00 History insulin degludec 200 unit/mL (3 65 unit subcut DAILY 07/31/23 04/23/24 04/05/24 08:00 History mL) subcutaneous pen (Tresiba FlexTouch U-200 insulin) fluticasone fur. 200 mcg-umeclid 1 ea inhalation DAILY 04/05/24 04/23/24 04/05/24 History 62.5 mcg-vilant 25 mcg inhalat.powder (Trelegy Ellipta) dapagliflozin propanediol 10 mg 10 mg PO DAILY 04/23/24 04/23/24 Unknown History tablet (Farxiga) Vitamin D2 1 mg PO QWEEK 04/24/24 04/24/24 04/17/24 History Physical Exam Vital Signs: Vital Signs: Last Vital Signs Temp 97.9 F 04/24/24 10:44 Pulse 87 04/24/24 10:44 Resp 18 04/24/24 10:44 BP 132/65 04/24/24 10:44 Pulse Ox 96 04/24/24 10:44 O2 Del Method Nasal Cannula 04/24/24 10:44 O2 Flow Rate 2 04/24/24 10:44 BMI result Body Mass Index 19.8 GENERAL APPEARANCE: in no acute distress, slow to respond but answering questions appropriately. NECK: no carotid bruit, + jugular venous distention. SKIN: no suspicious lesions, warm and dry. HEART: no murmurs, regular rate and rhythm. LUNGS: Bilateral crackles. ABDOMEN: soft, nontender. EXTREMITIES: no edema. PERIPHERAL PULSES: equal. NEUROLOGIC: No gross deficits, AAO X 3 Objective Labs and Meds 04/24/24 05:07 04/24/24 05:07 Lab results: Laboratory Results - last 24 hr 04/23/24 04/23/24 04/23/24 13:49 13:54 18:33 WBC RBC Hgb Hct MCV MCH MCHC RDW Plt Count MPV Immature Gran % (Auto) Neut % (Auto) Lymph % (Auto) [place] % (Auto) Eos % (Auto) Baso % (Auto) Lymph # (Auto) [place] # (Auto) Eos # (Auto) Baso # (Auto) Abs Immat Gran (auto) Absolute Neuts (auto) Absolute Nucleated RBC Nucleated RBC % (auto) Neutrophils % (Manual) Band Neutrophils % Monocytes % (Manual) Eosinophils % (Manual) Abs Neuts (Manual) Monocytes # (Manual) Eosinophils # (Manual) Platelet Estimate Plt Morphology Comment RBC Morphology Microcytosis Ovalocytes Acanthocytes (Spur) VBG pH 7.41 VBG pCO2 31 VBG pO2 51 VBG HCO3 20 L VBG O2 Saturation 77.0 VBG Base Excess -3.4 Sodium Potassium Chloride Carbon Dioxide Anion Gap BUN Creatinine Estim Creat Clear Calc Estimated GFR POC Glucose 87 Random Glucose Lactic Acid Lactic Acid F/U @ 2Hr Calcium Total Bilirubin AST ALT Alkaline Phosphatase Troponin I High Sens 179.5 H* B-Natriuretic Peptide Total Protein Albumin Respiratory Panel [place] Adenovirus (Rapid PCR) B.pert (TEM-PCR) B.parapertussis DNA PCR C. pneumoniae DNA (PCR) Coronavirus OC43 (PCR) Coronavirus HKU1 (PCR) Coronavirus 229E (PCR) Coronavirus NL63 (PCR) Human Metapneumovir PCR Influenza A (RT-PCR) Influenza B (RT-PCR) M. pneumoniae (PCR) Parainfluenza 1 (PCR) Parainfluenza 2 (PCR) Parainfluenza 3 (PCR) Parainfluenza 4 (PCR) RSV (PCR) Entero/Rhino (PCR) SARS-CoV-2 RNA (RT-PCR) 04/23/24 04/23/24 04/23/24 18:49 19:47 20:50 WBC RBC Hgb Hct MCV MCH MCHC RDW Plt Count MPV Immature Gran % (Auto) Neut % (Auto) Lymph % (Auto) [place] % (Auto) Eos % (Auto) Baso % (Auto) Lymph # (Auto) [place] # (Auto) Eos # (Auto) Baso # (Auto) Abs Immat Gran (auto) Absolute Neuts (auto) Absolute Nucleated RBC Nucleated RBC % (auto) Neutrophils % (Manual) Band Neutrophils % Monocytes % (Manual) Eosinophils % (Manual) Abs Neuts (Manual) Monocytes # (Manual) Eosinophils # (Manual) Platelet Estimate Plt Morphology Comment RBC Morphology Microcytosis Ovalocytes Acanthocytes (Spur) VBG pH VBG pCO2 VBG pO2 VBG HCO3 VBG O2 Saturation VBG Base Excess Sodium Potassium Chloride Carbon Dioxide Anion Gap BUN Creatinine Estim Creat Clear Calc Estimated GFR POC Glucose 70 Random Glucose Lactic Acid 2.8 H* Lactic Acid F/U @ 2Hr Calcium Total Bilirubin AST ALT Alkaline Phosphatase Troponin I High Sens B-Natriuretic Peptide Total Protein Albumin Respiratory Panel [place] See Note Adenovirus (Rapid PCR) Not Detected B.pert (TEM-PCR) Not Detected B.parapertussis DNA PCR Not Detected C. pneumoniae DNA (PCR) Not Detected Coronavirus OC43 (PCR) Not Detected Coronavirus HKU1 (PCR) Not Detected Coronavirus 229E (PCR) Not Detected Coronavirus NL63 (PCR) Not Detected Human Metapneumovir PCR Not Detected Influenza A (RT-PCR) Not Detected Influenza B (RT-PCR) Not Detected M. pneumoniae (PCR) Not Detected Parainfluenza 1 (PCR) Not Detected Parainfluenza 2 (PCR) Not Detected Parainfluenza 3 (PCR) Not Detected Parainfluenza 4 (PCR) Not Detected RSV (PCR) Not Detected Entero/Rhino (PCR) Not Detected SARS-CoV-2 RNA (RT-PCR) Not Detected 04/23/24 04/24/24 04/24/24 22:14 05:07 07:24 WBC 14.1 H RBC 4.78 Hgb 12.1 L Hct 38.4 L MCV 80.3 MCH 25.3 L MCHC 31.5 RDW 16.9 H Plt Count 184 MPV 8.3 L Immature Gran % (Auto) Cancelled Neut % (Auto) Cancelled Lymph % (Auto) Cancelled [place] % (Auto) Cancelled Eos % (Auto) Cancelled Baso % (Auto) Cancelled Lymph # (Auto) Cancelled [place] # (Auto) Cancelled Eos # (Auto) Cancelled Baso # (Auto) Cancelled Abs Immat Gran (auto) Cancelled Absolute Neuts (auto) Cancelled Absolute Nucleated RBC 0.000 Nucleated RBC % (auto) 0.0 Neutrophils % (Manual) 90 H Band Neutrophils % 5 Monocytes % (Manual) 2 Eosinophils % (Manual) 3 Abs Neuts (Manual) 13.4 H Monocytes # (Manual) 0.3 Eosinophils # (Manual) 0.4 Platelet Estimate NORMAL Plt Morphology Comment NORMAL RBC Morphology NOTED Microcytosis 1+ (5-14) Ovalocytes 1+ (5-14) Acanthocytes (Spur) 1+ (0-2) VBG pH VBG pCO2 VBG pO2 VBG HCO3 VBG O2 Saturation VBG Base Excess Sodium 142 Potassium 5.3 H Chloride 109 H Carbon Dioxide 15 L Anion Gap 23 H BUN 81 H Creatinine 5.12 H* Estim Creat Clear Calc 10.4 Estimated GFR 11 POC Glucose 87 Random Glucose 84 Lactic Acid Lactic Acid F/U @ 2Hr 1.2 Calcium 9.1 D Total Bilirubin 1.6 H AST 41 H ALT 39 Alkaline Phosphatase 125 H Troponin I High Sens B-Natriuretic Peptide 10195 H Total Protein 6.9 Albumin 3.8 Respiratory Panel [place] Adenovirus (Rapid PCR) B.pert (TEM-PCR) B.parapertussis DNA PCR C. pneumoniae DNA (PCR) Coronavirus OC43 (PCR) Coronavirus HKU1 (PCR) Coronavirus 229E (PCR) Coronavirus NL63 (PCR) Human Metapneumovir PCR Influenza A (RT-PCR) Influenza B (RT-PCR) M. pneumoniae (PCR) Parainfluenza 1 (PCR) Parainfluenza 2 (PCR) Parainfluenza 3 (PCR) Parainfluenza 4 (PCR) RSV (PCR) Entero/Rhino (PCR) SARS-CoV-2 RNA (RT-PCR) 04/24/24 10:51 WBC RBC Hgb Hct MCV MCH MCHC RDW Plt Count MPV Immature Gran % (Auto) Neut % (Auto) Lymph % (Auto) [place] % (Auto) Eos % (Auto) Baso % (Auto) Lymph # (Auto) [place] # (Auto) Eos # (Auto) Baso # (Auto) Abs Immat Gran (auto) Absolute Neuts (auto) Absolute Nucleated RBC Nucleated RBC % (auto) Neutrophils % (Manual) Band Neutrophils % Monocytes % (Manual) Eosinophils % (Manual) Abs Neuts (Manual) Monocytes # (Manual) Eosinophils # (Manual) Platelet Estimate Plt Morphology Comment RBC Morphology Microcytosis Ovalocytes Acanthocytes (Spur) VBG pH VBG pCO2 VBG pO2 VBG HCO3 VBG O2 Saturation VBG Base Excess Sodium Potassium Chloride Carbon Dioxide Anion Gap BUN Creatinine Estim Creat Clear Calc Estimated GFR POC Glucose 98 Random Glucose Lactic Acid Lactic Acid F/U @ 2Hr Calcium Total Bilirubin AST ALT Alkaline Phosphatase Troponin I High Sens B-Natriuretic Peptide Total Protein Albumin Respiratory Panel [place] Adenovirus (Rapid PCR) B.pert (TEM-PCR) B.parapertussis DNA PCR C. pneumoniae DNA (PCR) Coronavirus OC43 (PCR) Coronavirus HKU1 (PCR) Coronavirus 229E (PCR) Coronavirus NL63 (PCR) Human Metapneumovir PCR Influenza A (RT-PCR) Influenza B (RT-PCR) M. pneumoniae (PCR) Parainfluenza 1 (PCR) Parainfluenza 2 (PCR) Parainfluenza 3 (PCR) Parainfluenza 4 (PCR) RSV (PCR) Entero/Rhino (PCR) SARS-CoV-2 RNA (RT-PCR) Imaging Radiologist's impression: Impressions Chest X-Ray 04/23/24 11:45 IMPRESSION: Central vascular congestion and mild pulmonary edema. Electronically signed by: Alex Gaitan DO 04/23/2024 12:45 PM EDT RP Head CT 04/23/24 13:10 IMPRESSION: No acute intracranial pathology. Electronically signed by: Osmani Loya MD 04/23/2024 02:21 PM EDT RP Assessment and Plan (1) Altered mental status: Status: Acute (2) Congestive heart failure: Status: Acute Plan [age] gentleman with advanced CKD and congestive heart failure (EF 25 30%, moderate RV dysfunction) who recently left the hospital 2 weeks ago after admission for congestive heart failure. He is presenting with fever and shortness of breath and is in heart failure currently. IV diuretics as clinically he is in heart failure. Agree with empiric antibiotics and waiting for blood cultures to come back. His urinalysis should be checked too. Involve Nephrology as kidney function has worsened compared to before. The patient said he would not consider hemodialysis if required but it requires some discussion. Hold gabapentin-I think it is causing tremors. Hold the Farxiga also. Can continue hydralazine nitrate combination as long as blood pressure tolerates that. We will follow along with you. Procedures Date of Service Date of Service: 04/24/24
--- NOTE | 2024-04-24 14:27 | P.CONNP_ITS ---
History of Present Illness Reason for Consult Consult date: 04/24/24 Chief Complaint Chief complaint: CHF, fever History of Present Illness Narrative: 83 year old man with medical history of HFrEF (EF 35-40%), aortic valve replacement, DMII, HTN, COPD, CKD stage 4, who presented to the hospital with acute hypoxic respiratory failure 2/2 CHF exacerbation. nephrology consulted for KAILEY on admission of note, pt recently admitted on 04/05 for shortness of breath pt has been receiving 40mg IV Lasix BID, as well as IV abx for pneumonia, currently on supplemental O2 via nasal cannula. pt received lokelma this a.m. for potassium of 5.3 urine protein in nephrotic range pt denies nausea, vomiting, muscle cramping pt lethargic on exam today, though answering questions appropriately denies tremors denies pruritus pt reports he is making urine, using urinal- 775mL urine output since admission per chart. 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 Review of Systems Constitutional: Reports fatigue, Denies headache(s), Reports lethargy and Reports weakness Denies headache(s) Cardiovascular: Denies chest pain and Denies dyspnea Respiratory: Reports no additional respiratory complaints and Denies dyspnea Comments: on supplemental O2 via nasal cannula Gastrointestinal: Denies abdominal pain, Denies constipation and Denies diarrhea Genitourinary: Denies hematuria, Denies dysuria and Denies flank pain Musculoskeletal: Denies muscle cramps Skin/Breast: Denies rash Denies headache(s), Denies tremor(s) and Reports weakness Endocrine: Reports fatigue PMFSH Past Medical History Medical History Type 2 diabetes mellitus CHF (congestive heart failure) Hypertension Diabetes Asthma COPD (chronic obstructive pulmonary disease) CHF (congestive heart failure) Social History Social History Household Members: Family Housing: House Do you presently have visiting nurse or other home services: No Alcohol intake: never Comment: refusing alarms Patient Tobacco Use Status: Former Tobacco user Smoked in Last 30 Days: No Second Hand Smoke Exposure: No Use of substances other than those prescribed or required for medical reasons: No Have you been hit, kicked, punched, or otherwise hurt by someone within the past year? If so, by whom?: No Do you feel safe in your current relationship?: Yes Is there a partner from a previous relationship who is making you feel unsafe now?: No Are you made to feel afraid or neglected: No Advance Directives: Yes Advance Directives Information Provided: Yes Advance Directives on File: No Advance Directives Date on File: 03/13/22 Do you have a plan to hurt others: No Plan Recently lost weight without trying: Unsure Nutrition Risks: Poor intake 0-25% >4 days service: No Current occupational status: retired [email or web address] Allergies Allergy/AdvReac Type Severity Reaction Status Date / Time No Known Allergies Allergy Verified 04/23/24 10:23 Active Medications: Current Medications Acetaminophen (Acetaminophen 325 Mg Tablet) 650 mg PO Q6H PRN PRN Reason: Pain, Mild (Pain Scale 1-3), fever or headache Last Admin: 04/24/24 04:24 Dose: 650 mg Calcium Carbonate (Calcium Carbonate 750 Mg Tab.Chew) 750 mg PO Q4H PRN PRN Reason: Heartburn Furosemide (Furosemide 40 Mg/4 Ml Vial) 40 mg IVPUSH BID@0900,1800 [facility]; Protocol Last Admin: 04/24/24 08:53 Dose: 40 mg Glucose (Glucose Gel 15 Gm Gel..Gram.) 15 gm PO Q15M PRN; Protocol PRN Reason: per Hypoglycemia Standing Ord. Heparin Sodium (Porcine) (Heparin Sodium,Porcine 5,000 Unit/Ml Vial) 5,000 unit SUBCUT Q12H [facility] Last Admin: 04/24/24 04:25 Dose: 5,000 unit Dextrose (D10) 250 mls @ 750 mls/hr IV Q15M PRN; Protocol PRN Reason: per Hypoglycemia Standing Ord. Doxycycline Hyclate 100 mg/ (Sodium Chloride) 250 mls @ 166.67 mls/hr IV BID [facility] Last Infusion: 04/24/24 10:51 Dose: Infused Ceftriaxone Sodium 1 gm/ (Sodium Chloride) 50 mls @ 100 mls/hr IV Q24H [facility] Last Infusion: 04/23/24 17:45 Dose: Infused Insulin Human Lispro (Insulin Lispro 100 Unit/Ml 3 Ml Vial) 0 unit SUBCUT QIDACHS [facility]; Protocol Last Admin: 04/24/24 12:23 Dose: Not Given Magnesium Hydroxide (Milk Of Magnesia 30 Ml Oral.Susp) 30 ml PO DAILY PRN PRN Reason: Constipation Melatonin (Melatonin 3 Mg Tablet) 6 mg PO BEDTIME PRN PRN Reason: Insomnia Ondansetron HCl (Ondansetron Hcl 4 Mg/2 Ml Vial) 4 mg IVPUSH Q8H PRN PRN Reason: Nausea and Vomiting Sodium Chloride (0.9 % Sodium Chloride Flush 3 Ml Syringe) 3 [facility] Last Admin: 04/24/24 08:56 Dose: 3 ml Home Medications ?Medication ?Instructions ?Recorded ?Confirmed ?Last Taken ?Type albuterol sulfate 90 mcg/actuation 2 puff PO Q6H PRN wheezing 03/11/22 04/23/24 04/05/24 08:00 History aerosol inhaler aspirin 81 mg tablet,delayed 81 mg PO DAILY 03/11/22 04/23/24 04/05/24 08:00 History release atorvastatin 80 mg tablet 1 tab PO DAILY 03/11/22 04/23/24 04/05/24 08:00 History gabapentin 300 mg capsule 1 cap PO BEDTIME 03/11/22 04/23/24 04/04/24 History montelukast 10 mg tablet 1 tab PO DAILY 03/11/22 04/23/24 04/05/24 08:00 History glipizide 10 mg tablet 10 mg PO BID 07/31/23 04/23/24 04/05/24 08:00 History insulin degludec 200 unit/mL (3 65 unit subcut DAILY 07/31/23 04/23/24 04/05/24 08:00 History mL) subcutaneous pen (Tresiba FlexTouch U-200 insulin) fluticasone fur. 200 mcg-umeclid 1 ea inhalation DAILY 04/05/24 04/23/24 04/05/24 History 62.5 mcg-vilant 25 mcg inhalat.powder (Trelegy Ellipta) dapagliflozin propanediol 10 mg 10 mg PO DAILY 04/23/24 04/23/24 Unknown History tablet (Farxiga) Vitamin D2 1 mg PO QWEEK 04/24/24 04/24/24 04/17/24 History Physical Exam Vital Signs: Last Vital Signs Temp 97.9 F 04/24/24 10:44 Pulse 87 04/24/24 10:44 Resp 18 04/24/24 10:44 BP 132/65 04/24/24 10:44 Pulse Ox 96 04/24/24 10:44 O2 Del Method Nasal Cannula 04/24/24 10:44 O2 Flow Rate 2 04/24/24 10:44 BMI result Body Mass Index 19.8 Const General: comfortable and no acute distress Nutritional Appearance: average body habitus Orientation/consciousness: oriented to person, oriented to place and oriented to time Neck Neck: Yes no JVD Resp Effort & Inspection: able to speak in complete sentences Auscultation: clear to auscultation bilaterally Cardio Jugular venous distension: no JVD Rate: regular rate Rhythm: regular rhythm Heart sounds: S1 normal heart sound present and S2 normal heart sound present GI Palpation (GI): Soft to palpation Rectal Exam - Male: No tenderness General: Yes no CVA tenderness Back/Spine/Pelvis Back: no CVA tenderness Skin Rashes: no rashes Neuro General: oriented to person, oriented to place and oriented to time Extrem General: Yes normal to inspection, No edema and No pedal edema Results Lab Results 04/24/24 05:07 04/24/24 05:07 Lab results: Chemistry 04/23/24 04/24/24 11:10 05:07 Sodium 142 142 Potassium 5.0 D 5.3 H Carbon Dioxide 21 L 15 L BUN 75 H 81 H Creatinine 4.61 H* 5.12 H* Calcium 9.7 9.1 D Hematology 04/23/24 04/24/24 10:42 05:07 WBC 10.0 14.1 H Hgb 11.9 L 12.1 L Plt Count 227 184 Urinalysis 04/23/24 11:11 Urine Color Yellow Urine Appearance Clear Urine pH 5.5 Ur Specific [place] 1.015 Urine Protein 300 (3+) H Urine Glucose (UA) 500 H Urine Ketones Negative Urine Blood Negative Urine Nitrite Negative Ur Leukocyte Esterase Negative Urine RBC 0-2 Urine WBC 0-5 Ur Squamous Epith Cells 0-2 Hyaline Casts 3-5 Assessment and Plan (1) CKD (chronic kidney disease) stage 4, GFR 15-29 ml/min: Status: Acute (2) KAILEY (acute kidney injury): Status: Resolved (3) Pulmonary edema: Status: Acute Plan CKD stage 4 with KAILEY secondary to renal hypoperfusion 2/2 CHF exacerbation (likely precipitated by PNA) recommend renal ultrasound to assess for obstruction will assess urine protein and urine creatinine recommend continuing diuresis as prescribed lasix 40mg IV BID keep in negative balance pt has some lethargy as well as worsening metabolic acidosis he is exhibiting oliguria in setting of diuretic use, will need to monitor closely chronic anemia stable, continue to monitor normal calcium, will get phosphorous level pt stated today he does not wish to undergo dialysis, will need to continue to closely monitor Discussed with Dr Zuniga Procedures Date of Service Date of Service: 04/24/24
[2024-04-24] MEDS: cefTRIAXone sodium 1 GM in 0.9 % Sodium Chloride 50 ML IV (15:56)
--- NOTE | 2024-04-24 16:15 | MHC.CM.PN ---
IMM 04/24. Pt lives at home with his daughter, is active with [facility] services, uses a cane. Daughter will transport him home at discharge. Pts HCP is his daughter, HCP copy requested. This CM called [facility], they have a HCP on file, and will fax it to us. PCP: Dr. Antony Pappas
[2024-04-24 16:16] LABS: Glucose, Whole Blood 166 mg/dL (60-115)
[2024-04-24] MEDS: Insulin Lispro 100 UNIT/ML 3 ML VIAL SUBCUT (17:49)
[2024-04-24 20:09] LABS: Glucose, Whole Blood 148 mg/dL (60-115)
[2024-04-24 20:12] LABS: Creatinine Urine 83.21 mg/dL; Total Protein Urine Random 83 mg/dL (<12)
[2024-04-25] VITALS (8 sets, daily range): BP systolic 99–113; BP diastolic 56–63; PULSE 75–97; RESP 16–21; TEMP 36.3–37.4; O2SAT 94–99
--- NOTE | 2024-04-25 07:00 | CA_ITS ---
Transthoracic Echocardiogram Patient (Last, First, Middle): Adolfo Blakely, Gender: Male Date of : 1940 Age: 83 Procedure Date: 04/25/2024 Procedure Type: Transthoracic Echocardiogram Location: [facility] [place] Height: 177.8 cm Weight: 62.14 kg BSA: 1.78 m2 Heart Rate: 97 bpm BP: 113 / 58 mmHg Care Companion: SYED Referring MD: Melissa De León NP Symptoms: chf Study Quality: Adequate ECG Rhythm: Sinus Conclusions: - Normal left ventricular cavity size. There is moderately increased left ventricular wall thickness. The left ventricular systolic function is severely decreased. The visually estimated ejection fraction is between 15-20%. - Elevated filling pressures. - Mildly increased right ventricular cavity size. There is moderately decreased right ventricular systolic function. - The left atrium is severely dilated. - There is moderate calcification of the aortic valve. There is moderate aortic valve stenosis. - Moderately elevated right atrial pressure. Moderate pulmonary hypertension is present. - There is mild dilatation of the ascending aorta measuring 4.10 cm. Findings Left Ventricle Normal left ventricular cavity size. There is moderately increased left ventricular wall thickness. The left ventricular systolic function is severely decreased. The visually estimated ejection fraction is between 15 20%. There is severe global hypokinesis. Abnormal diastolic function is noted. Elevated filling pressures. Right Ventricle Mildly increased right ventricular cavity size. There is moderately decreased right ventricular systolic function. Atria The left atrium is severely dilated. The right atrium is moderately dilated. Aortic Valve A bioprosthetic aortic valve is present. The prosthetic aortic valve appears to be functioning abnormally. There is moderate calcification of the aortic valve. There is moderate aortic valve stenosis. The mean gradient is 26 mmHg. The aortic valve area is 1.20 cm2. There is no aortic valve regurgitation. Mitral Valve The mitral valve appears normal. There is trace mitral valve regurgitation. There is no mitral valve stenosis. Pulmonic Valve The pulmonic valve is normal. There is trace pulmonic valve regurgitation. Tricuspid Valve Normal tricuspid valve structure. There is mild tricuspid valve regurgitation. The right ventricular systolic pressure is 48 mmHg. Moderately elevated right atrial pressure. Moderate pulmonary hypertension is present. Great Vessels There is mild dilatation of the ascending aorta measuring 4.10 cm. The visualized portions of the pulmonary artery and branches are normal. Venous The inferior vena cava is normal in size and collapses less than 50% with inspiration. Pericardium/Pleural There is no evidence of pericardial effusion. Prior Study Comparison Changes noted compared to prior study dated: 03/13/2022. EF 15 to 20%, mod RV dysfunction. Moderate bioprosthetic aortic valve stenosis. Measurements 2D Linear Measurements IVSd: 1.38 0.6-0.9/0.6-1.0 cm LVIDd: 5.01 3.9-5.3/4.2-5.9 cm LVIDd Index: 2.81 2.4-3.2/2.2-3.1 cm/m2 LVIDs: 4.46 2.0-3.6 cm LVPWd: 1.28 0.7-1.1 cm LA Diam: 5.00 2.7-3.8/3.0-4.0 cm LAIDs Index: 2.81 1.5-2.3 cm/m2 LV Mass: 338.48 67-162/88-224 g LV Mass Index: 190.16 43-95/49-115 g/m2 LVOT Diam: 2.00 3.0+(-)1.3 cm 2D Systolic Function EF 4C: 33.50 >55% EF 2C: 25.00 >55% EF BiP: 27.80 >55% Mitral Valve MV VTI: 0.27 MV Pk Eugene: 1.12 MV Mn Eugene: 0.86 MV Pk Grad: 5.00 MV Mn Grad: 3.00 MV Pk E: 1.16 MV PK A: 0.95 MV Decel Time: 98.00 E/A: 1.20 E'Lateral: 5.44 E'Medial: 3.15 E/E' Med: 36.80 E/E' Lat: 21.30 PHT: 29.00 MVA PHT: 7.59 MVA Continuity: 2.76 Decel [place]: 11.77 Aortic Valve AoV Pk Eugene: 3.21 AoV Mn Eugene: 2.42 AoV VTI: 0.61 AoV Pk Grad: 41.00 Aov Mn Grad: 26.00 RICKY Cont.VTI: 1.20 LVOT LVOT Pk Eugene: 1.21 LVOT Mn Eugene: 0.89 LVOT VTI: 0.23 LVOT Pk Grad: 6.00 LVOT Mn Grad: 3.00 LVOT Diam: 2.00 LVOT Area: 3.14 Diastolic Function MV Pk E: 1.16 MV Pk A: 0.95 E/A: 1.20 E'Medial: 3.15 E/E' Med: 36.80 E' Laterial: 5.44 E/E' Lat: 21.30 Right Ventricle TAPSE (mm): 14.10 TVS' Eugene: 7.94 Tricuspid Valve TR Pk Eugene: 2.62 TR Pk Grad: 27.00 RA Press: 8.00 RVSP: 48.00 Great Vessels Aorta Sinus of Valsalva: 3.60 2.0-3.5 cm Ao Asc: 4.10 2.1-3.4 cm Pulmonary Valve PV Pk Eugene: 0.99 Peak PV Grad: 4.00 Updated in Other Vendor System with Status of Final Benny Gamble MD electronically signed on 04/25/2024 2:23:04 PM with status of Final
[2024-04-25 07:08] LABS: B Type Natriuretic Peptide 3601 pg/mL (<100)
[2024-04-25 07:10] LABS: Alanine Aminotransferase 50 U/L (0-40); Albumin Level 3.2 g/dL (3.5-5.0); Alkaline Phosphatase 189 U/L (39-117); Anion Gap 21 (12-20); Aspartate Amino Transferase 40 U/L (5-37); Bilirubin Total 1.6 mg/dL (0.0-1.0); Blood Urea Nitrogen 94 mg/dL (9-16); Calcium 8.7 mg/dL (8.4-10.2); Carbon Dioxide 16 mmol/L (22-29); Chloride 105 mmol/L (96-108); Glucose Random 131 mg/dL (60-115); Potassium 4.8 mmol/L (3.3-5.1); Sodium 137 mmol/L (135-145); Total Protein 6.1 g/dL (6.5-8.0)
[2024-04-25 07:36] LABS: Glucose, Whole Blood 133 mg/dL (60-115)
[2024-04-25 07:52] LABS: Creatinine Clr Calc Pharmacy 9.3; Estimated Glomerular Filt Rate 10
[2024-04-25] MEDS: Furosemide 40 MG/4 ML VIAL IVPUSH (08:47)
[2024-04-25] MEDS: Doxycycline Hyclate 100 MG in 0.9 % Sodium Chloride 250 ML 166.67 MG IV (08:48)
[2024-04-25] MEDS: 0.9 % Sodium Chloride Flush 3 ML SYRINGE IVFLUSH ×3 (08:55→21:16)
[2024-04-25] MEDS: Atorvastatin Calcium 80 MG TABLET PO (08:59)
[2024-04-25] MEDS: Metoprolol Succinate ER 50 MG TAB.ER.24H PO (08:59)
[2024-04-25] MEDS: Isosorbide Mononitrate 30 MG TAB.ER.24H PO (08:59)
[2024-04-25] MEDS: Montelukast Sodium 10 MG TABLET PO (09:03)
--- NOTE | 2024-04-25 09:07 | HO.PM.IMPN ---
Subjective Subjective Date of Service: 04/25/24 Review of Systems Follow up CHF more awake and alert today had some nausea this morning Physical Exam Vital Signs: Vital Signs: Last Vital Signs Temp 99.3 F 04/25/24 07:17 Pulse 92 04/25/24 07:17 Resp 16 04/25/24 07:17 BP 110/63 04/25/24 07:17 Pulse Ox 94 04/25/24 07:17 O2 Del Method Room Air 04/25/24 07:17 O2 Flow Rate 2 04/25/24 03:03 BMI result Body Mass Index 19.8 Appearing in no acute distress LSCTA heart regular rate rhythm, clear S1, S2 positive bowel sounds, abdomen is soft, nontender neuro patient is alert x3, no focal deficits Objective Data Active Medications Acetaminophen (Acetaminophen 325 Mg Tablet) 650 mg PO Q6H PRN PRN Reason: Pain, Mild (Pain Scale 1-3), fever or headache Last Admin: 04/24/24 04:24 Dose: 650 mg Documented By: SHANE Atorvastatin Calcium (Atorvastatin Calcium 80 Mg Tablet) 80 mg PO DAILY [facility] Last Admin: 04/25/24 08:59 Dose: 80 mg Documented By: JEFF Calcium Carbonate (Calcium Carbonate 750 Mg Tab.Chew) 750 mg PO Q4H PRN PRN Reason: Heartburn Furosemide (Furosemide 40 Mg/4 Ml Vial) 40 mg IVPUSH BID@0900,1800 [facility]; Protocol Last Admin: 04/25/24 08:47 Dose: 40 mg Documented By: JEFF Glucose (Glucose Gel 15 Gm Gel..Gram.) 15 gm PO Q15M PRN; Protocol PRN Reason: per Hypoglycemia Standing Ord. Heparin Sodium (Porcine) (Heparin Sodium,Porcine 5,000 Unit/Ml Vial) 5,000 unit SUBCUT Q12H [facility] Last Admin: 04/25/24 03:41 Dose: Not Given Documented By: JUAN Non-Admin Reason: Patient Refused Dextrose (D10) 250 mls @ 750 mls/hr IV Q15M PRN; Protocol PRN Reason: per Hypoglycemia Standing Ord. Doxycycline Hyclate 100 mg/ (Sodium Chloride) 250 mls @ 166.67 mls/hr IV BID [facility] Last Admin: 04/25/24 08:48 Dose: 166.67 mls/hr Documented By: JEFF Ceftriaxone Sodium 1 gm/ (Sodium Chloride) 50 mls @ 100 mls/hr IV Q24H [facility] Last Infusion: 04/24/24 16:35 Dose: Infused Documented By: JEFF Insulin Human Lispro (Insulin Lispro 100 Unit/Ml 3 Ml Vial) 0 unit SUBCUT QIDACHS [facility]; Protocol Last Admin: 04/25/24 08:56 Dose: Not Given Documented By: JEFF Non-Admin Reason: No Insulin Coverage Isosorbide Mononitrate (Isosorbide Mononitrate 30 Mg Tab.Er.24h) 30 mg PO DAILY [facility]; Protocol Last Admin: 04/25/24 08:59 Dose: 30 mg Documented By: JEFF Magnesium Hydroxide (Milk Of Magnesia 30 Ml Oral.Susp) 30 ml PO DAILY PRN PRN Reason: Constipation Melatonin (Melatonin 3 Mg Tablet) 6 mg PO BEDTIME PRN PRN Reason: Insomnia Metoprolol Succinate (Metoprolol Succinate Er 50 Mg Tab.Er.24h) 50 mg PO DAILY [facility]; Protocol Last Admin: 04/25/24 08:59 Dose: 50 mg Documented By: JEFF Montelukast Sodium (Montelukast Sodium 10 Mg Tablet) 10 mg PO DAILY [facility] Last Admin: 04/25/24 09:03 Dose: 10 mg Documented By: JEFF Ondansetron HCl (Ondansetron Hcl 4 Mg/2 Ml Vial) 4 mg IVPUSH Q8H PRN PRN Reason: Nausea and Vomiting Sodium Chloride (0.9 % Sodium Chloride Flush 3 Ml Syringe) 3 ml IVFLUSH QSHIFT [facility] Last Admin: 04/25/24 08:55 Dose: 3 ml Documented By: JEFF Labs 04/24/24 05:07 04/25/24 06:23 Labs: Laboratory Results - last 24 hr 04/23/24 04/24/24 04/24/24 18:49 10:51 16:12 Anion Gap Estim Creat Clear Calc Estimated GFR POC Glucose 98 166 H Random Glucose Calcium Total Bilirubin Direct Bilirubin AST ALT Alkaline Phosphatase B-Natriuretic Peptide Total Protein Albumin U Random Total Protein Urine Creatinine Respiratory Panel [facility]ols See Note Adenovirus (Rapid PCR) Not Detected B.pert (TEM-PCR) Not Detected B.parapertussis DNA PCR Not Detected C. pneumoniae DNA (PCR) Not Detected Coronavirus OC43 (PCR) Not Detected Coronavirus HKU1 (PCR) Not Detected Coronavirus 229E (PCR) Not Detected Coronavirus NL63 (PCR) Not Detected Human Metapneumovir PCR Not Detected Influenza A (RT-PCR) Not Detected Influenza B (RT-PCR) Not Detected M. pneumoniae (PCR) Not Detected Parainfluenza 1 (PCR) Not Detected Parainfluenza 2 (PCR) Not Detected Parainfluenza 3 (PCR) Not Detected Parainfluenza 4 (PCR) Not Detected RSV (PCR) Not Detected Entero/Rhino (PCR) Not Detected SARS-CoV-2 RNA (RT-PCR) Not Detected 04/24/24 04/24/24 04/25/24 19:03 20:00 06:23 Anion Gap 21 H Estim Creat Clear Calc 9.3 Estimated GFR 10 POC Glucose 148 H Random Glucose 131 H Calcium 8.7 Total Bilirubin 1.6 H Direct Bilirubin 1.0 H AST 40 H ALT 50 H Alkaline Phosphatase 189 H B-Natriuretic Peptide 3601 H Total Protein 6.1 L Albumin 3.2 L U Random Total Protein 83 H Urine Creatinine 83.21 Respiratory Panel [place]ols Adenovirus (Rapid PCR) B.pert (TEM-PCR) B.parapertussis DNA PCR C. pneumoniae DNA (PCR) Coronavirus OC43 (PCR) Coronavirus HKU1 (PCR) Coronavirus 229E (PCR) Coronavirus NL63 (PCR) Human Metapneumovir PCR Influenza A (RT-PCR) Influenza B (RT-PCR) M. pneumoniae (PCR) Parainfluenza 1 (PCR) Parainfluenza 2 (PCR) Parainfluenza 3 (PCR) Parainfluenza 4 (PCR) RSV (PCR) Entero/Rhino (PCR) SARS-CoV-2 RNA (RT-PCR) 04/25/24 07:23 Anion Gap Estim Creat Clear Calc Estimated GFR POC Glucose 133 H Random Glucose Calcium Total Bilirubin Direct Bilirubin AST ALT Alkaline Phosphatase B-Natriuretic Peptide Total Protein Albumin U Random Total Protein Urine Creatinine Respiratory Panel [place]ols Adenovirus (Rapid PCR) B.pert (TEM-PCR) B.parapertussis DNA PCR C. pneumoniae DNA (PCR) Coronavirus OC43 (PCR) Coronavirus HKU1 (PCR) Coronavirus 229E (PCR) Coronavirus NL63 (PCR) Human Metapneumovir PCR Influenza A (RT-PCR) Influenza B (RT-PCR) M. pneumoniae (PCR) Parainfluenza 1 (PCR) Parainfluenza 2 (PCR) Parainfluenza 3 (PCR) Parainfluenza 4 (PCR) RSV (PCR) Entero/Rhino (PCR) SARS-CoV-2 RNA (RT-PCR) Microbiology Microbiology Results: Microbiology 04/23/24 10:53 Blood Culture - Preliminary Blood - Venous No growth after 24 hours. 04/23/24 10:45 Blood Culture - Preliminary Blood - Venous No growth after 24 hours. Assessment and Plan (1) Congestive heart failure: Status: Acute (2) KAILEY (acute kidney injury): Status: Resolved Plan 83 year old man presenting with CHF and Pneumonia Acute hypoxic respiratory failure secondary to acute exacerbation of heart failure with reduced ejection fraction and community-acquired pneumonia Monitor on telemetry BNP [id number], 84725, 3601 Echocardiogram at [facility] [place] 11/2023 showed EF of 35-40% with moderate global hypokinesis, bioprosthetic aortic valve neg covid, flu, rsv Cardiology following>continue diuresing IV Lasix 40 mg b.i.d. Supplemental oxygen to keep oxygen saturation greater than 90% Daily weights, strict intake and output KAILEY likely cardiorenal, worsening Likely secondary to acute heart failure Continue diuresis consult Nephrology>renal us t r/o obstruction Community-acquired pneumonia Due to fevers and hypoxia will treat for infectious source as well Rocephin and doxycycline Supplemental oxygen to keep oxygen saturation greater than 90% neg blood cultures fevers have resolved Elevated troponin Peaked at 179.5 Secondary to acute congestive heart failure No ischemic changes noted on EKG Cardiology to follow Hypokalemia. resolved lokelma Diabetes mellitus type 2 Sliding scale, ADA diet Hypertension Soft blood pressure readings Hold antihypertensives for now, doing well off hydralazine COPD/asthma No exacerbation Albuterol as needed Diabetic neuropathy Hold gabapentin for now secondary to KAILEY DVT prophylaxis with heparin Attending Dr. Coffman Full code Quality Stroke Does the patient have a stroke diagnosis?: No VTE Prior VTE?: No VTE Risk Level:: Medical - moderate - high VTE Device Contraindication: Treatment Not Indicated VTE Drug Contraindication: N/A - Med Ordered
--- NOTE | 2024-04-25 09:13 | MHC.CM.PN ---
HCP received from [facility], now on file.
[2024-04-25 11:12] LABS: Glucose, Whole Blood 193 mg/dL (60-115)
--- NOTE | 2024-04-25 11:57 | MHC.CM.PN ---
PT is recommending STR, this CM discussed with pts daughter/HCP Denia, and [facility] is first choice. Referral placed to [facility], they are following. Per MD rounds, pt is not medically cleared for discharge today.
--- NOTE | 2024-04-25 12:04 | P.PNNP_ITS ---
Subjective Subjective Date of Service: 04/25/24 Interval history: 83 year old man with medical history of HFrEF (EF 35-40%), aortic valve replacement, DMII, HTN, COPD (pt reports on 2L NC intermittently at home), CKD stage 4, who presented to the hospital with acute hypoxic respiratory failure 2/2 CHF exacerbation and PNA. nephrology consulted for KAILEY present on admission pt has been receiving 40mg IV Lasix BID, as well as IV abx for pneumonia, currently on supplemental O2 via nasal cannula. creatinine is worsening, increased from 5.12 yesterday to 5.45 today ( prior to admission). mild proteinuria, normal urine creatinine levels pt denies nausea, vomiting, muscle cramping pt is alert and oriented, reports fatigue, lethargy denies tremors denies pruritus pt reports he is making urine, using urinal- 1100mL in last 24 hours pt denies urinary symptoms of difficulty urinating, painful urination, blood in urine, flank pain Used to see Dr Real. Physical Exam 2 Vital Signs: Vital Signs: Last Vital Signs Temp 98.5 F 04/25/24 10:56 Pulse 80 04/25/24 10:56 Resp 20 04/25/24 10:56 BP 99/57 L 04/25/24 10:56 Pulse Ox 96 04/25/24 10:56 O2 Del Method Room Air 04/25/24 10:56 O2 Flow Rate 2 04/25/24 03:03 BMI result Body Mass Index 19.8 Const: General: comfortable and no acute distress Nutritional Appearance: a verage body habitus Orientation/consciousness: oriented to person, oriented to place and oriented to time Neck: Neck: Yes no JVD Resp: Effort & Inspection: able to speak in complete sentences A uscultation: clear to auscultation bilaterally Cardio: Jugular venous distension: no JVD Rate: regular rate Rhythm: r egular rhythm Heart sounds: S1 normal heart sound present and S2 normal heart sound present GI: Palpation (GI): Soft to palpation Rectal Exam - Male: No tenderness : General: Yes no CVA tenderness Back/Spine/Pelvis: Back: no CVA tenderness Skin: Rashes: no rashes Neuro: General: oriented to person, oriented to place and oriented to time Extrem: General: Yes normal to inspection and Yes edema (bilateral lower extremity edema- trace, pitting) Objective Data Labs 04/24/24 05:07 04/25/24 06:23 Labs: Laboratory Results - last 24 hr 04/24/24 04/24/24 04/24/24 16:12 19:03 20:00 Sodium Potassium Chloride Carbon Dioxide Anion Gap BUN Creatinine Estim Creat Clear Calc Estimated GFR POC Glucose 166 H 148 H Random Glucose Calcium Total Bilirubin Direct Bilirubin AST ALT Alkaline Phosphatase B-Natriuretic Peptide Total Protein Albumin U Random Total Protein 83 H Urine Creatinine 83.21 04/25/24 04/25/24 04/25/24 06:23 07:23 11:01 Sodium 137 Potassium 4.8 Chloride 105 Carbon Dioxide 16 L Anion Gap 21 H BUN 94 H Creatinine 5.45 H* Estim Creat Clear Calc 9.3 Estimated GFR 10 POC Glucose 133 H 193 H Random Glucose 131 H Calcium 8.7 Total Bilirubin 1.6 H Direct Bilirubin 1.0 H AST 40 H ALT 50 H Alkaline Phosphatase 189 H B-Natriuretic Peptide 3601 H Total Protein 6.1 L Albumin 3.2 L U Random Total Protein Urine Creatinine Microbiology Microbiology Results: Microbiology 04/23/24 10:53 Blood - Venous Blood Culture - Preliminary No growth after 24 hours. 04/23/24 10:45 Blood - Venous Blood Culture - Preliminary No growth after 24 hours. Procedures Date of Service Date of Service: 04/25/24 Assessment & Plan Assessment and plan (1) CKD (chronic kidney disease) stage 4, GFR 15-29 ml/min: Status: Acute (2) Pulmonary edema: Status: Acute (3) Congestive heart failure: Status: Acute (4) Pneumonia: Status: Acute (5) KAILEY (acute kidney injury): Status: Resolved Plan CKD stage 4 with KAILEY secondary to renal hypoperfusion 2/2 CHF exacerbation (likely precipitated by PNA) recommend holding diuretics due to worsening renal function- clinically patient is lying flat without shortness of breath and states he is breathing comfortably. pt has some lethargy as well as worsening metabolic acidosis patient making urine (1100mL in last 24 hours) chronic anemia stable, continue to monitor normal calcium, will get phosphorous level pt confirmed again today he does not wish to undergo dialysis, will need to continue to closely monitor Discussed with Dr Zuniga Time Spent With Patient Time: Total time managing care of this patient today ____ minutes. Progress Note: Quality Stroke Does the patient have a stroke diagnosis?: No
[2024-04-25] MEDS: Insulin Lispro 100 UNIT/ML 3 ML VIAL SUBCUT ×3 (12:19→21:15)
--- NOTE | 2024-04-25 13:09 | PM.PNCARD ---
Subjective Subjective Date of Service: 04/25/24 Interval history: Seen examined at bedside. He is complaining of poor appetite. He was getting renal ultrasound at the time of examination. Denying shortness of breath. Echocardiography done today reviewed showing EF 15 20% with moderate RV dysfunction. Bioprosthetic aortic valve with at least moderate stenosis and aortic valve area of 1.2 cm2. Physical Exam Vital Signs: Last Vital Signs Temp 98.5 F 04/25/24 10:56 Pulse 80 04/25/24 10:56 Resp 20 04/25/24 10:56 BP 99/57 L 04/25/24 10:56 Pulse Ox 96 04/25/24 10:56 O2 Del Method Room Air 04/25/24 10:56 O2 Flow Rate 2 04/25/24 03:03 BMI result Body Mass Index 19.8 GENERAL APPEARANCE: in no acute distress, slow to respond but answering questions appropriately. NECK: no carotid bruit, + jugular venous distention. SKIN: no suspicious lesions, warm and dry. HEART: no murmurs, regular rate and rhythm. LUNGS: Bilateral crackles. ABDOMEN: soft, nontender. EXTREMITIES: no edema. PERIPHERAL PULSES: equal. NEUROLOGIC: No gross deficits, AAO X 3 Objective Labs and Meds 04/24/24 05:07 04/25/24 06:23 Lab results: Laboratory Results - last 24 hr 04/24/24 04/24/24 04/24/24 16:12 19:03 20:00 Sodium Potassium Chloride Carbon Dioxide Anion Gap BUN Creatinine Estim Creat Clear Calc Estimated GFR POC Glucose 166 H 148 H Random Glucose Calcium Total Bilirubin Direct Bilirubin AST ALT Alkaline Phosphatase B-Natriuretic Peptide Total Protein Albumin U Random Total Protein 83 H Urine Creatinine 83.21 04/25/24 04/25/24 04/25/24 06:23 07:23 11:01 Sodium 137 Potassium 4.8 Chloride 105 Carbon Dioxide 16 L Anion Gap 21 H BUN 94 H Creatinine 5.45 H* Estim Creat Clear Calc 9.3 Estimated GFR 10 POC Glucose 133 H 193 H Random Glucose 131 H Calcium 8.7 Total Bilirubin 1.6 H Direct Bilirubin 1.0 H AST 40 H ALT 50 H Alkaline Phosphatase 189 H B-Natriuretic Peptide 3601 H Total Protein 6.1 L Albumin 3.2 L U Random Total Protein Urine Creatinine Progress Note: A&P Assessment and plan (1) CKD (chronic kidney disease) stage 4, GFR 15-29 ml/min: Status: Acute (2) Altered mental status: Status: Acute (3) Congestive heart failure: Status: Acute Plan Pleasant 83 year gentleman with known history of cardiomyopathy and previous bypass surgery and aortic valve replacement with bioprosthetic valve. He has advanced CKD. Recently admitted with congestive heart failure when he was diuresed and his medications were adjusted and he was started on hydralazine and nitrate combination because of advanced CKD and in ability to use Arnulfo/ARB. He is now presenting with fever and some concern for infection although no source has been found. He was quite confused and was having twitching which I think is related to gabapentin and worsening kidney function. Gabapentin has been stopped. Clinically he was volume overloaded and was diuresed but his creatinine has been worsening and he has been refusing hemodialysis as per discussion with medicine team. Hold the beta-florencio for now. Hold Lasix. As blood pressure improves I will reintroduce hydralazine. His echocardiography is also showing severe LV dysfunction EF 15 20% and moderate RV dysfunction. He also has bioprosthetic aortic valve stenosis which I think is at least moderate in severity. We will follow along with you. Complex situation and hopefully with medication he turns around because he has refused hemodialysis. Thank you for allowing me to participate in the care of your patient. Please feel free to contact me if you have any questions. Time Spent With Patient Time: Total time managing care of this patient today ____ minutes. Progress Note: Quality Stroke Does the patient have a stroke diagnosis?: No Procedures Date of Service Date of Service: 04/25/24
[2024-04-25 15:56] LABS: Glucose, Whole Blood 200 mg/dL (60-115)
[2024-04-25] MEDS: cefTRIAXone sodium 1 GM in 0.9 % Sodium Chloride 50 ML IV (16:35)
[2024-04-25] MEDS: Heparin Sodium,Porcine 5,000 UNIT/ML VIAL 5000 UNIT SUBCUT (16:37)
[2024-04-25 20:23] LABS: Glucose, Whole Blood 165 mg/dL (60-115)
[2024-04-26] VITALS (7 sets, daily range): BP systolic 103–122; BP diastolic 54–62; PULSE 82–122; RESP 18–20; TEMP 36–39.3; O2SAT 92–96
--- NOTE | 2024-04-26 | ECG_ITS ---
Test Reason : FAST HEART RATE Blood Pressure : / mmHG Vent. Rate : 114 BPM Atrial Rate : 114 BPM P-R Int : 256 ms QRS Dur : 094 ms QT Int : 298 ms P-R-T Axes : 009 -42 120 degrees QTc Int : 410 ms Sinus tachycardia with 1st degree A-V block Left axis deviation ST & T wave abnormality, consider lateral ischemia Abnormal ECG When compared with ECG of 23-APR-2024 10:30, Non-specific change in ST segment in Anterior leads Heart rate has increased Referred By: Che Benson Electronically Signed By:LISA TERESA
[2024-04-26 07:10] LABS: Glucose, Whole Blood 141 mg/dL (60-115)
[2024-04-26 07:29] LABS: Phosphorus 4.6 mg/dL (2.7-4.5)
[2024-04-26] MEDS: Atorvastatin Calcium 80 MG TABLET PO (07:56)
[2024-04-26] MEDS: Isosorbide Mononitrate 30 MG TAB.ER.24H PO (07:56)
[2024-04-26] MEDS: Montelukast Sodium 10 MG TABLET PO (07:56)
[2024-04-26] MEDS: Doxycycline Hyclate 100 MG in 0.9 % Sodium Chloride 250 ML 166.67 MG IV (07:56)
[2024-04-26] MEDS: hydrALAZINE HCl 25 MG TABLET PO ×3 (09:14→20:54)
[2024-04-26] MEDS: 0.9 % Sodium Chloride Flush 3 ML SYRINGE IVFLUSH ×3 (09:14→23:39)
--- NOTE | 2024-04-26 11:00 | PM.PNCARD ---
Subjective Subjective Date of Service: 04/26/24 Interval history: Seen examined at bedside. No obvious source for infection and is currently off antibiotics. His tremors and twitching has improved after stopping gabapentin as mental status also has improved. Physical Exam Vital Signs: Last Vital Signs Temp 98.7 F 04/26/24 07:00 Pulse 88 04/26/24 07:00 Resp 18 04/26/24 07:00 BP 120/62 04/26/24 07:00 Pulse Ox 94 04/26/24 07:00 O2 Del Method Room Air 04/26/24 07:00 O2 Flow Rate 2 04/25/24 03:03 BMI result Body Mass Index 19.8 GENERAL APPEARANCE: in no acute distress. NECK: no carotid bruit, mild jugular venous distention. SKIN: no suspicious lesions, warm and dry. HEART: Ejection systolic murmur with preserved 2nd heart sound, regular rate and rhythm. LUNGS: Clear to auscultation. ABDOMEN: soft, nontender. EXTREMITIES: no edema. PERIPHERAL PULSES: equal. NEUROLOGIC: No gross deficits, AAO X 3 Objective Labs and Meds 04/24/24 05:07 04/25/24 06:23 Lab results: Laboratory Results - last 24 hr 04/25/24 04/25/24 04/25/24 11:01 15:53 20:17 POC Glucose 193 H 200 H 165 H Phosphorus 04/26/24 04/26/24 06:52 07:03 POC Glucose 141 H Phosphorus 4.6 H Imaging Radiologist's impression: Impressions Renal Ultrasound 04/25/24 12:30 IMPRESSION: No suspicious findings. No hydronephrosis. Left renal cysts. Electronically signed by: Denton Arauz MD 04/26/2024 08:38 AM EDT Progress Note: A&P Assessment and plan (1) KAILEY (acute kidney injury): Status: Acute (2) Altered mental status: Status: Acute (3) Congestive heart failure: Status: Acute (4) CKD (chronic kidney disease) stage 4, GFR 15-29 ml/min: Status: Acute Plan Pleasant 83 year gentleman with known history of cardiomyopathy and previous bypass surgery and aortic valve replacement with bioprosthetic valve. He has advanced CKD. Recently admitted with congestive heart failure when he was diuresed and his medications were adjusted and he was started on hydralazine and nitrate combination because of advanced CKD and inability to use Arnulfo/ARB. He is now presenting with fever and some concern for infection although no source has been found. He was quite confused and was having twitching which I think is related to gabapentin and worsening kidney function. Gabapentin has been stopped and he has improved significantly. Clinically he was volume overloaded and has some congestive heart failure on admission but with diuresis his kidney function has worsened significantly. Currently we are holding diuretics. I am also holding beta-florencio currently. His blood pressure has improved somewhat and I am reintroducing the hydralazine 25 mg 3 times a day. Continue isosorbide. He is not agreeable for dialysis currently but this may need further discussions down the line. We will follow along with you. Thank you for allowing me to participate in the care of your patient. Please feel free to contact me if you have any questions. Time Spent With Patient Time: Total time managing care of this patient today ____ minutes. Progress Note: Quality Stroke Does the patient have a stroke diagnosis?: No Procedures Date of Service Date of Service: 04/26/24
--- NOTE | 2024-04-26 11:17 | P.PNNP_ITS ---
Subjective Subjective Date of Service: 04/26/24 Interval history: 83 year old man with medical history of HFrEF (EF 35-40%), aortic valve replacement, DMII, HTN, COPD (pt reports on 2L NC intermittently at home), CKD stage 4, who presented to the hospital with acute hypoxic respiratory failure 2/2 CHF exacerbation and PNA. nephrology consulted for KAILEY present on admission holding 40mg IV Lasix BID, as well as IV abx for pneumonia, currently on supplemental O2 via nasal cannula. creatinine down slightly from 5.45 yesterday to 5.32 today (3.87 prior to admission), GFR remains at 10 as it was yesterday. mild proteinuria, normal urine creatinine levels pt denies nausea, vomiting, muscle cramping pt is alert and oriented, reports fatigue, lethargy are improving and breathing is comfortable reports feels better today than yesterday denies tremors denies pruritus pt reports he is making urine, using urinal- 570mL thus far today pt denies urinary symptoms of difficulty urinating, painful urination, blood in urine, flank pain reports he would like to go home to his cat and family. he reiterates today that he does not wish to go on dialysis for his kidney failure. Used to see Dr Real. Physical Exam 2 Vital Signs: Vital Signs: Last Vital Signs Temp 98.1 F 04/26/24 11:09 Pulse 89 04/26/24 11:09 Resp 18 04/26/24 11:09 BP 112/58 L 04/26/24 11:09 Pulse Ox 96 04/26/24 11:09 O2 Del Method Room Air 04/26/24 11:09 O2 Flow Rate 2 04/25/24 03:03 BMI result Body Mass Index 19.8 Const: General: comfortable and no acute distress O rientation/consciousness: oriented to person, oriented to place and oriented to time Neck: Neck: Yes no JVD Resp: Effort & Inspection: able to speak in complete sentences A uscultation: clear to auscultation bilaterally Cardio: Jugular venous distension: no JVD Rate: regular rate Rhythm: r egular rhythm Heart sounds: S1 normal heart sound present and S2 normal heart sound present GI: Palpation (GI): Soft to palpation Rectal Exam - Male: No tenderness : General: Yes no CVA tenderness Back/Spine/Pelvis: Back: no CVA tenderness Skin: Rashes: no rashes Neuro: General: oriented to person, oriented to place and oriented to time Extrem: General: Yes normal to inspection and No edema Objective Data Labs 04/24/24 05:07 04/26/24 13:56 Labs: Laboratory Results - last 24 hr 04/25/24 04/25/24 04/26/24 15:53 20:17 06:52 POC Glucose 200 H 165 H Phosphorus 4.6 H 04/26/24 07:03 POC Glucose 141 H Phosphorus Microbiology Microbiology Results: Microbiology 04/23/24 10:53 Blood - Venous Blood Culture - Preliminary No growth after 48 hours. 04/23/24 10:45 Blood - Venous Blood Culture - Preliminary No growth after 48 hours. Procedures Date of Service Date of Service: 04/26/24 Assessment & Plan Assessment and plan (1) CKD (chronic kidney disease) stage 4, GFR 15-29 ml/min: Status: Acute (2) Pulmonary edema: Status: Acute (3) Congestive heart failure: Status: Acute (4) Pneumonia: Status: Acute (5) KAILEY (acute kidney injury): Status: Acute Plan CKD stage 4 with KAILEY secondary to renal hypoperfusion 2/2 CHF exacerbation (likely precipitated by PNA) recommend continuing to hold diuretics due to worsening renal function- clinically is euvolemic. pt continues to have a metabolic acidosis patient making urine (570mL this a.m.) chronic anemia stable, continue to monitor normal calcium, phosphorous level is just slightly elevated, potassium within normal limits. Discussed with pt he needs to strictly avoid nephrotoxic substances including NSAIDs. pt confirmed again today he does not wish to undergo dialysis, will need to continue to closely monitor. Discussed that with this renal function, changes in health like an infection or worsening cardiac function may tip the balance with his renal function and dialysis would be the option as a life-saving measure. Discussed with Dr Zuniga Time Spent With Patient Time: Total time managing care of this patient today ____ minutes. Progress Note: Quality Stroke Does the patient have a stroke diagnosis?: No
[2024-04-26 11:39] LABS: Glucose, Whole Blood 160 mg/dL (60-115)
[2024-04-26] MEDS: Insulin Lispro 100 UNIT/ML 3 ML VIAL SUBCUT ×3 (12:20→23:37)
--- NOTE | 2024-04-26 14:12 | MHC.CM.PN ---
EMR reviewed and per MD rounds, pt is not medically cleared for discharge due to management of CHF and pneumonia.
[2024-04-26 14:19] LABS: Anion Gap 22 (12-20); Blood Urea Nitrogen 105 mg/dL (9-16); Calcium 8.9 mg/dL (8.4-10.2); Carbon Dioxide 14 mmol/L (22-29); Chloride 106 mmol/L (96-108); Creatinine Clr Calc Pharmacy 9.6; Estimated Glomerular Filt Rate 10; Glucose Random 162 mg/dL (60-115); Potassium 3.9 mmol/L (3.3-5.1); Sodium 138 mmol/L (135-145)
--- NOTE | 2024-04-26 14:58 | HO.PM.IMPN ---
Subjective Subjective Date of Service: 04/26/24 Interval History: Being followed for CHF. Complaining of decreased appetite, denies headache no lightheadedness, no dizziness, no chest pain, no palpitation, no shortness of breath, no orthopnea, no acute events overnight. Review of Systems All other system reviewed and are negative. Physical Exam Vital Signs: Vital Signs: Last Vital Signs Temp 98.1 F 04/26/24 11:09 Pulse 89 04/26/24 11:09 Resp 18 04/26/24 11:09 BP 112/58 L 04/26/24 11:09 Pulse Ox 96 04/26/24 11:09 O2 Del Method Room Air 04/26/24 11:09 O2 Flow Rate 2 04/25/24 03:03 BMI result Body Mass Index 19.8 Const: Other: General resting comfortably in no acute distress. Neck no JVD. CVS regular rate rhythm, Respiratory lungs clear to auscultation, no respiratory distress, no wheeze, no rhonchi. Gastrointestinal abdomen soft, non tender, bowel sounds audible. Extremities no edema. Neuro non focal Skin no rash Psych appropriate affect Objective Data Active Medications Acetaminophen (Acetaminophen 325 Mg Tablet) 650 mg PO Q6H PRN PRN Reason: Pain, Mild (Pain Scale 1-3), fever or headache Last Admin: 04/24/24 04:24 Dose: 650 mg Documented By: SHANE Atorvastatin Calcium (Atorvastatin Calcium 80 Mg Tablet) 80 mg PO DAILY [facility] Last Admin: 04/26/24 07:56 Dose: 80 mg Documented By: TANVIR Calcium Carbonate (Calcium Carbonate 750 Mg Tab.Chew) 750 mg PO Q4H PRN PRN Reason: Heartburn Glucose (Glucose Gel 15 Gm Gel..Gram.) 15 gm PO Q15M PRN; Protocol PRN Reason: per Hypoglycemia Standing Ord. Heparin Sodium (Porcine) (Heparin Sodium,Porcine 5,000 Unit/Ml Vial) 5,000 unit SUBCUT Q12H [facility] Last Admin: 04/26/24 04:56 Dose: Not Given Documented By: JUAN Non-Admin Reason: Patient Refused Hydralazine HCl (Hydralazine Hcl 25 Mg Tablet) 25 mg PO TID [facility]; Protocol Last Admin: 04/26/24 09:14 Dose: 25 mg Documented By: TANVIR Dextrose (D10) 250 mls @ 750 mls/hr IV Q15M PRN; Protocol PRN Reason: per Hypoglycemia Standing Ord. Insulin Human Lispro (Insulin Lispro 100 Unit/Ml 3 Ml Vial) 0 unit SUBCUT QIDACHS [facility]; Protocol Last Admin: 04/26/24 12:20 Dose: 2 unit Documented By: TANVIR Isosorbide Mononitrate (Isosorbide Mononitrate 30 Mg Tab.Er.24h) 30 mg PO DAILY [facility]; Protocol Last Admin: 04/26/24 07:56 Dose: 30 mg Documented By: TANVIR Magnesium Hydroxide (Milk Of Magnesia 30 Ml Oral.Susp) 30 ml PO DAILY PRN PRN Reason: Constipation Melatonin (Melatonin 3 Mg Tablet) 6 mg PO BEDTIME PRN PRN Reason: Insomnia Montelukast Sodium (Montelukast Sodium 10 Mg Tablet) 10 mg PO DAILY [facility] Last Admin: 04/26/24 07:56 Dose: 10 mg Documented By: TANVIR Ondansetron HCl (Ondansetron Hcl 4 Mg/2 Ml Vial) 4 mg IVPUSH Q8H PRN PRN Reason: Nausea and Vomiting Sodium Chloride (0.9 % Sodium Chloride Flush 3 Ml Syringe) 3 ml IVFLUSH QSHIFT [facility] Last Admin: 04/26/24 09:14 Dose: 3 ml Documented By: TANVIR Labs 04/24/24 05:07 04/26/24 13:56 Labs: Laboratory Results - last 24 hr 04/25/24 04/25/24 04/26/24 15:53 20:17 06:52 Anion Gap Estim Creat Clear Calc Estimated GFR POC Glucose 200 H 165 H Random Glucose Calcium Phosphorus 4.6 H 04/26/24 04/26/24 04/26/24 07:03 11:33 13:56 Anion Gap 22 H Estim Creat Clear Calc 9.6 Estimated GFR 10 POC Glucose 141 H 160 H Random Glucose 162 H Calcium 8.9 Phosphorus Microbiology Microbiology Results: Microbiology 04/23/24 10:53 Blood Culture - Preliminary Blood - Venous No growth after 48 hours. 04/23/24 10:45 Blood Culture - Preliminary Blood - Venous No growth after 48 hours. Assessment and Plan (1) KAILEY (acute kidney injury): Status: Acute (2) CKD (chronic kidney disease) stage 4, GFR 15-29 ml/min: Status: Acute (3) Congestive heart failure: Status: Acute Plan 83 year old man presenting with CHF and Pneumonia Acute hypoxic respiratory failure secondary to acute exacerbation of heart failure with reduced ejection fraction Feeling better denies shortness of breath Diuretics on hold due to worsening renal function BNP 25391, on admission improved [place] 3601 [place] [facility] [place] EF of 35-40% with moderate global hypokinesis, bioprosthetic aortic valve neg covid, flu, rsv Wean oxygen as tolerated Fever/jitteriness no source of infection found, initially felt to have pneumonia chest x-ray showed no infiltrates, Symptoms likely due to gabapentin DC antibiotics KAILEY on ckd 4 likely due to over-diuresis Hold diuretics Creatinine trending down Renal ultrasound showed no obstruction Patient declined hemodialysis Avoid hypotension and nephrotoxins Seen by Nephrology they recommend outpatient follow-up with 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 Nguyen Decreased appetite due to kidney disease Will add ensure and encourage ambulation Elevated troponin Peaked at 179.5 Secondary to acute congestive heart failure No ischemic changes noted on EKG Acute hyperkalemia resolved Diabetes mellitus type 2 Stable blood sugars, continue Sliding scale, ADA diet Hypertension Noted to have low blood pressures, Blood pressure improving, will continue isosorbide low-dose hydralazine restarted by Cardiology , continue to hold beta-blockers and diuretics COPD/asthma No exacerbation, Albuterol as needed Diabetic neuropathy Will DC gabapentin, likely cause of tremors twitching and fever. DVT prophylaxis with heparin Full code In my clinical judgment patient requires continued inpatient hospitalization for treatment of KAILEY/CHF requiring medication adjustment and expert consultation Quality Stroke Does the patient have a stroke diagnosis?: No VTE Prior VTE?: No VTE Risk Level:: Medical - moderate - high VTE Device Contraindication: Treatment Not Indicated VTE Drug Contraindication: N/A - Med Ordered
[2024-04-26 16:03] LABS: Glucose, Whole Blood 182 mg/dL (60-115)
[2024-04-26] MEDS: Heparin Sodium,Porcine 5,000 UNIT/ML VIAL 5000 UNIT SUBCUT (16:25)
[2024-04-26] MEDS: Calcium Carbonate 750 MG TAB.CHEW PO (18:26)
[2024-04-26] MEDS: Melatonin 3 MG TABLET 6 MG PO (20:53)
[2024-04-26] MEDS: Acetaminophen 325 MG TABLET 650 MG PO (20:54)
[2024-04-26 21:24] LABS: Glucose, Whole Blood 172 mg/dL (60-115)
[2024-04-26 22:19] LABS: Hematocrit 32.7 % (42.0-52.0); Hemoglobin 10.3 g/dl (14.0-18.0); Mean Corpuscular HGB Conc 31.5 g/dl (31.0-36.0); Mean Corpuscular Hemoglobin 25.1 pg (27.0-33.0); Mean Corpuscular Volume 79.6 fL (80.0-98.0); Mean Platelet Volume 8.9 fL (9.4-12.4); Platelet Count 169 X10*3/uL (160-400); Red Blood Count 4.11 X10*6/uL (4.60-5.80); Red Cell Distribution Width 16.9 % (11.0-16.0); White Blood Count 10.9 X10*3/uL (4.8-10.8)
[2024-04-26 22:29] LABS: Lactic Acid 1.6 mmol/L (0.5-2.0)
[2024-04-26 22:41] LABS: Alanine Aminotransferase 76 U/L (0-40); Albumin Level 3.2 g/dL (3.5-5.0); Alkaline Phosphatase 457 U/L (39-117); Anion Gap 22 (12-20); Aspartate Amino Transferase 62 U/L (5-37); Bilirubin Total 4.5 mg/dL (0.0-1.0); Blood Urea Nitrogen 106 mg/dL (9-16); Calcium 8.9 mg/dL (8.4-10.2); Carbon Dioxide 14 mmol/L (22-29); Chloride 106 mmol/L (96-108); Creatinine Clr Calc Pharmacy 9.4; Estimated Glomerular Filt Rate 10; Glucose Random 172 mg/dL (60-115); Magnesium 2.4 mg/dL (1.6-2.6); Sodium 138 mmol/L (135-145); Total Protein 5.8 g/dL (6.5-8.0)
[2024-04-26 23:01] LABS: Band Neutrophils Percent 1 % (3-5); Eosinophils Absolute Manual 0.1 X10*3/uL (0.0-0.4); Eosinophils Percent Manual 1 % (0-4); Lymphocytes Absolute Manual 0.1 X10*3/uL (1.2-4.9); Lymphocytes Percent Manual 1 % (20-40); Monocytes Absolute Manual 0.1 X10*3/uL (0.1-1.2); Monocytes Percent Manual 1 % (2-11); Neutrophils Absolute Manual 10.6 X10*3/uL (2.0-8.3); Neutrophils Percent Manual 96 % (45-73); Nucleated Red Blood Cells 1 /100WBC (0-0)
[2024-04-26 23:02] LABS: Burr Cells 3+ (>5) /OIF; Ovalocytes 1+ (5-14) /OIF; Platelet Estimate NORMAL (NORMAL); Platelet Morphology Comment NORMAL; RBC Morphology NOTED
[2024-04-26 23:04] LABS: Baso%MD 0.2 %; Eos%MD 4.9 %; Lymph%MD 2.4 %; Mono%MD 2.5 %
[2024-04-27] VITALS (8 sets, daily range): BP systolic 106–138; BP diastolic 58–67; PULSE 91–106; RESP 17–22; TEMP 36.4–38.2; O2SAT 93–97
--- NOTE | 2024-04-27 | ECG_ITS ---
Test Reason : chest pain Blood Pressure : / mmHG Vent. Rate : 093 BPM Atrial Rate : 093 BPM P-R Int : 216 ms QRS Dur : 100 ms QT Int : 386 ms P-R-T Axes : 058 -20 140 degrees QTc Int : 479 ms Sinus rhythm with 1st degree A-V block with occasional Premature ventricular complexes T wave abnormality, consider lateral ischemia Prolonged QT Abnormal ECG When compared with ECG of 26-APR-2024 21:42, Premature ventricular complexes are now Present QT has lengthened Heart rate has decreased Referred By: Che Benson Electronically Signed By:LISA TERESA
[2024-04-27] MEDS: Doxycycline Hyclate 100 MG in 0.9 % Sodium Chloride 250 ML 166.7 MG IV (01:45)
--- NOTE | 2024-04-27 01:58 | PM.EVENT ---
Event Note Date of Service: 04/26/24 Event Note: 9:24 PM - Contacted to notify pt has fever 102.8, rectally as well as tachycardia, 122-125 bpm, BP 122/54. New workup ordered: CXR, UA, resp viral panel, CBC, CMP, BCs X2 and lactic acid. 10:06 PM - No significant leukocytosis or lactic acidosis. Renal function and metabolic acidosis stable. LFTs persists elevated, bilirubin increased to 4.5. Will check direct bilirubin and abdomina US. CXR is negative. UA and viral panel are still pending. Time Spent With Patient Time: Total time managing care of this patient today ____ minutes.
[2024-04-27 02:38] LABS: Bilirubin Direct 3.5 mg/dL (0.0-0.5); Lipase 80 U/L (8-78)
[2024-04-27 02:57] LABS: Influenza A PCR NEGATIVE (Negative); Influenza B PCR NEGATIVE (Negative); Resp Syncy Virus RNA Qual PCR NEGATIVE (Negative); SARS COV2 PCR INHOUSE NEGATIVE (Negative)
[2024-04-27] MEDS: Heparin Sodium,Porcine 5,000 UNIT/ML VIAL 5000 UNIT SUBCUT ×2 (04:33→16:33)
[2024-04-27 07:06] LABS: Hematocrit 33.5 % (42.0-52.0); Hemoglobin 10.3 g/dl (14.0-18.0); Mean Corpuscular HGB Conc 30.7 g/dl (31.0-36.0); Mean Corpuscular Hemoglobin 24.6 pg (27.0-33.0); Mean Corpuscular Volume 80.1 fL (80.0-98.0); Mean Platelet Volume 9.1 fL (9.4-12.4); Platelet Count 178 X10*3/uL (160-400); Red Blood Count 4.18 X10*6/uL (4.60-5.80); Red Cell Distribution Width 16.9 % (11.0-16.0); White Blood Count 12.2 X10*3/uL (4.8-10.8)
[2024-04-27 07:19] LABS: Anion Gap 21 (12-20); Blood Urea Nitrogen 100 mg/dL (9-16); Calcium 8.9 mg/dL (8.4-10.2); Carbon Dioxide 15 mmol/L (22-29); Chloride 108 mmol/L (96-108); Creatinine Clr Calc Pharmacy 9.4; Estimated Glomerular Filt Rate 10; Glucose Random 143 mg/dL (60-115); Potassium 4.1 mmol/L (3.3-5.1); Sodium 140 mmol/L (135-145)
[2024-04-27 07:20] LABS: Appearance Urine Hazy; Color Urine Yellow; Glucose Urine UA 100 mg/dL (Negative); Leukocyte Esterase Urine Negative (Negative); Nitrite Urine Negative (Negative); PH 5.5 (5.0-9.0); UMIC TRIGGER UACC YES; Urine Blood Trace (Negative); Urine Ketones Negative (Negative); Urine Protein 100 (2+) mg/dL (Neg-Trace)
[2024-04-27 07:22] LABS: Glucose, Whole Blood 155 mg/dL (60-115)
[2024-04-27 07:38] LABS: Bacteria Urine None Seen (None Seen); Granular Casts Urine Present; RBC Urine 0-2 /HPF (0-2); WBC Urine 0-5 /HPF (0-5)
[2024-04-27] MEDS: Insulin Lispro 100 UNIT/ML 3 ML VIAL SUBCUT ×4 (08:17→21:22)
[2024-04-27] MEDS: Isosorbide Mononitrate 30 MG TAB.ER.24H PO (09:36)
[2024-04-27] MEDS: Montelukast Sodium 10 MG TABLET PO (09:37)
[2024-04-27] MEDS: Atorvastatin Calcium 80 MG TABLET PO (09:37)
[2024-04-27 10:47] LABS: Adenovirus PCR Not Detected (Not Detect.); Bordetella parapertussis PCR Not Detected (Not Detect.); Bordetella pertussis PCR Not Detected (Not Detect.); Chlamydia pneumoniae PCR Not Detected (Not Detect.); Coronavirus 229E PCR Not Detected (Not Detect.); Coronavirus HKU1 PCR Not Detected (Not Detect.); Coronavirus NL63 PCR Not Detected (Not Detect.); Coronavirus OC43 PCR Not Detected (Not Detect.); Human metapneumovirus PCR Not Detected (Not Detect.); Influenza A PCR Not Detected (Not Detect.); Influenza B PCR Not Detected (Not Detect.); Mycoplasma pneumoniae PCR Not Detected (Not Detect.); Parainfluenza 1 PCR Not Detected (Not Detect.); Parainfluenza 2 PCR Not Detected (Not Detect.); Parainfluenza 3 PCR Not Detected (Not Detect.); Parainfluenza 4 PCR Not Detected (Not Detect.); RSV PCR Not Detected (Not Detect.); Rhino/Enterovirus PCR Not Detected (Not Detect.)
--- NOTE | 2024-04-27 11:07 | PM.PNNEP ---
Subjective Subjective Date of Service: 04/27/24 Interval history: 83 year old man with medical history of HFrEF (EF 35-40%), aortic valve replacement, DMII, HTN, COPD (pt reports on 2L NC intermittently at home), CKD stage 4, who presented to the hospital with acute hypoxic respiratory failure 2/2 CHF exacerbation and PNA. nephrology consulted for KAILEY present on admission holding 40mg IV Lasix BID, as well as IV abx for pneumonia, currently on supplemental O2 via nasal cannula. creatinine down slightly from 5.45 yesterday to 5.32 today (3.87 prior to admission), GFR remains at 10 as it was yesterday. mild proteinuria, normal urine creatinine levels pt spiked a fever of 102 overnight this a.m. pt states he is feeling just fine and states he feels well as he did yesterday he is oriented at bedside when assessed this a.m. pt denies nausea, vomiting, muscle cramping denies tremors denies pruritus pt reports he continues to urinate in urinal or toilet regularly pt denies urinary symptoms of difficulty urinating, painful urination, blood in urine, flank pain report again today he would like to go home to his cat and family. This a.m., 04/27, he states he does not wish to discuss dialysis further when asked if he his wishes have changed regarding dialysis (has repeatedly refused the last several days). Used to see Dr Real. Reports he was last seen by Dr Nguyen and wishes to continue to see him outpatient. Physical Exam Vital Signs: Vital Signs: Last Vital Signs Temp 97.5 F 04/27/24 07:48 Pulse 99 04/27/24 07:48 Resp 22 H 04/27/24 07:48 BP 106/65 04/27/24 07:48 Pulse Ox 93 04/27/24 07:48 O2 Del Method Room Air 04/27/24 07:48 O2 Flow Rate 2 04/25/24 03:03 BMI result Body Mass Index 19.8 Const: General: comfortable and no acute distress Orientation/consciousness: oriented to person, oriented to place and oriented to time Neck: Neck: Yes no JVD Resp: Effort & Inspection: able to speak in complete sentences Auscultation: clear to auscultation bilaterally Cardio: Jugular venous distension: no JVD Rate: regular rate Rhythm: regular rhythm Heart sounds: S1 normal heart sound present and S2 normal heart sound present GI: Palpation (GI): Soft to palpation Rectal Exam - Male: No tenderness : General: Yes no CVA tenderness Back/Spine/Pelvis: Back: no CVA tenderness Skin: Rashes: no rashes Neuro: General: oriented to person, oriented to place and oriented to time Extrem: General: Yes normal to inspection and No edema Objective Data Labs 04/27/24 06:02 04/27/24 06:02 Labs: Laboratory Results - last 24 hr 04/26/24 04/26/24 04/26/24 11:33 13:56 15:58 WBC RBC Hgb Hct MCV MCH MCHC RDW Plt Count MPV Immature Gran % (Auto) Neut % (Auto) Lymph % (Auto) [place] % (Auto) Eos % (Auto) Baso % (Auto) Lymph # (Auto) [place] # (Auto) Eos # (Auto) Baso # (Auto) Abs Immat Gran (auto) Absolute Neuts (auto) Absolute Nucleated RBC Nucleated RBC % (auto) Neutrophils % (Manual) Band Neutrophils % Lymphocytes % (Manual) Monocytes % (Manual) Eosinophils % (Manual) Abs Neuts (Manual) Lymphocytes # (Manual) Monocytes # (Manual) Eosinophils # (Manual) Nucleated RBCs Platelet Estimate Plt Morphology Comment RBC Morphology Ovalocytes [place] Cells Sodium 138 Potassium 3.9 Chloride 106 Carbon Dioxide 14 L Anion Gap 22 H BUN 105 H Creatinine 5.32 H* Estim Creat Clear Calc 9.6 Estimated GFR 10 POC Glucose 160 H 182 H Random Glucose 162 H Lactic Acid Calcium 8.9 Magnesium Total Bilirubin Direct Bilirubin AST ALT Alkaline Phosphatase Total Protein Albumin Lipase Urine Color Urine Appearance Urine pH Ur Specific [place] Urine Protein Urine Glucose (UA) Urine Ketones Urine Blood Urine Nitrite Ur Leukocyte Esterase Urine RBC Urine WBC Ur Squamous Epith Cells Urine Bacteria Hyaline Casts Granular Casts Influenza Type A (PCR) Influenza Type B (PCR) RSV RNA Qual (PCR) SARS-CoV-2 RNA (RT-PCR) 04/26/24 04/26/24 04/26/24 21:16 22:06 22:07 WBC 10.9 H RBC 4.11 L Hgb 10.3 L Hct 32.7 L MCV 79.6 L MCH 25.1 L MCHC 31.5 RDW 16.9 H Plt Count 169 MPV 8.9 L Immature Gran % (Auto) Cancelled Neut % (Auto) Cancelled Lymph % (Auto) Cancelled [place] % (Auto) Cancelled Eos % (Auto) Cancelled Baso % (Auto) Cancelled Lymph # (Auto) Cancelled [place] # (Auto) Cancelled Eos # (Auto) Cancelled Baso # (Auto) Cancelled Abs Immat Gran (auto) Cancelled Absolute Neuts (auto) Cancelled Absolute Nucleated RBC 0.000 Nucleated RBC % (auto) 0.0 Neutrophils % (Manual) 96 H Band Neutrophils % 1 L Lymphocytes % (Manual) 1 L Monocytes % (Manual) 1 L Eosinophils % (Manual) 1 Abs Neuts (Manual) 10.6 H Lymphocytes # (Manual) 0.1 L Monocytes # (Manual) 0.1 Eosinophils # (Manual) 0.1 Nucleated RBCs 1 H Platelet Estimate NORMAL Plt Morphology Comment NORMAL RBC Morphology NOTED Ovalocytes 1+ (5-14) [place] Cells 3+ (>5) Sodium 138 Potassium 4.0 Chloride 106 Carbon Dioxide 14 L Anion Gap 22 H BUN 106 H Creatinine 5.40 H* Estim Creat Clear Calc 9.4 Estimated GFR 10 POC Glucose 172 H Random Glucose 172 H Lactic Acid 1.6 Calcium 8.9 Magnesium 2.4 Total Bilirubin 4.5 H Direct Bilirubin 3.5 H AST 62 H ALT 76 H Alkaline Phosphatase 457 H Total Protein 5.8 L Albumin 3.2 L Lipase 80 H Urine Color Urine Appearance Urine pH Ur Specific [place] Urine Protein Urine Glucose (UA) Urine Ketones Urine Blood Urine Nitrite Ur Leukocyte Esterase Urine RBC Urine WBC Ur Squamous Epith Cells Urine Bacteria Hyaline Casts Granular Casts Influenza Type A (PCR) Influenza Type B (PCR) RSV RNA Qual (PCR) SARS-CoV-2 RNA (RT-PCR) 04/27/24 04/27/24 04/27/24 01:45 06:02 06:15 WBC 12.2 H RBC 4.18 L Hgb 10.3 L Hct 33.5 L MCV 80.1 MCH 24.6 L MCHC 30.7 L RDW 16.9 H Plt Count 178 MPV 9.1 L Immature Gran % (Auto) Neut % (Auto) Lymph % (Auto) [place] % (Auto) Eos % (Auto) Baso % (Auto) Lymph # (Auto) [place] # (Auto) Eos # (Auto) Baso # (Auto) Abs Immat Gran (auto) Absolute Neuts (auto) Absolute Nucleated RBC 0.000 Nucleated RBC % (auto) 0.0 Neutrophils % (Manual) Band Neutrophils % Lymphocytes % (Manual) Monocytes % (Manual) Eosinophils % (Manual) Abs Neuts (Manual) Lymphocytes # (Manual) Monocytes # (Manual) Eosinophils # (Manual) Nucleated RBCs Platelet Estimate Plt Morphology Comment RBC Morphology Ovalocytes [place] Cells Sodium 140 Potassium 4.1 Chloride 108 Carbon Dioxide 15 L Anion Gap 21 H BUN 100 H Creatinine 5.44 H* Estim Creat Clear Calc 9.4 Estimated GFR 10 POC Glucose Random Glucose 143 H Lactic Acid Calcium 8.9 Magnesium Total Bilirubin Direct Bilirubin AST ALT Alkaline Phosphatase Total Protein Albumin Lipase Urine Color Yellow Urine Appearance Hazy Urine pH 5.5 Ur Specific [place] 1.020 Urine Protein 100 (2+) H Urine Glucose (UA) 100 H Urine Ketones Negative Urine Blood Trace Urine Nitrite Negative Ur Leukocyte Esterase Negative Urine RBC 0-2 Urine WBC 0-5 Ur Squamous Epith Cells 6-10 Urine Bacteria None Seen Hyaline Casts 3-5 Granular Casts Present Influenza Type A (PCR) NEGATIVE Influenza Type B (PCR) NEGATIVE RSV RNA Qual (PCR) NEGATIVE SARS-CoV-2 RNA (RT-PCR) NEGATIVE 04/27/24 07:11 WBC RBC Hgb Hct MCV MCH MCHC RDW Plt Count MPV Immature Gran % (Auto) Neut % (Auto) Lymph % (Auto) [place] % (Auto) Eos % (Auto) Baso % (Auto) Lymph # (Auto) [place] # (Auto) Eos # (Auto) Baso # (Auto) Abs Immat Gran (auto) Absolute Neuts (auto) Absolute Nucleated RBC Nucleated RBC % (auto) Neutrophils % (Manual) Band Neutrophils % Lymphocytes % (Manual) Monocytes % (Manual) Eosinophils % (Manual) Abs Neuts (Manual) Lymphocytes # (Manual) Monocytes # (Manual) Eosinophils # (Manual) Nucleated RBCs Platelet Estimate Plt Morphology Comment RBC Morphology Ovalocytes [place] Cells Sodium Potassium Chloride Carbon Dioxide Anion Gap BUN Creatinine Estim Creat Clear Calc Estimated GFR POC Glucose 155 H Random Glucose Lactic Acid Calcium Magnesium Total Bilirubin Direct Bilirubin AST ALT Alkaline Phosphatase Total Protein Albumin Lipase Urine Color Urine Appearance Urine pH Ur Specific [place] Urine Protein Urine Glucose (UA) Urine Ketones Urine Blood Urine Nitrite Ur Leukocyte Esterase Urine RBC Urine WBC Ur Squamous Epith Cells Urine Bacteria Hyaline Casts Granular Casts Influenza Type A (PCR) Influenza Type B (PCR) RSV RNA Qual (PCR) SARS-CoV-2 RNA (RT-PCR) Microbiology Microbiology Results: Microbiology 04/23/24 10:53 Blood - Venous Blood Culture - Preliminary No growth after 48 hours. 04/23/24 10:45 Blood - Venous Blood Culture - Preliminary No growth after 48 hours. Procedures Date of Service Date of Service: 04/27/24 Assessment & Plan Assessment and plan (1) CKD (chronic kidney disease) stage 4, GFR 15-29 ml/min: Status: Acute (2) Pulmonary edema: Status: Acute (3) Congestive heart failure: Status: Acute (4) Pneumonia: Status: Acute (5) KAILEY (acute kidney injury): Status: Acute Plan CKD stage 4 with KAILEY secondary to renal hypoperfusion 2/2 CHF exacerbation (likely precipitated by PNA) may consider re-starting home diuretics. Patient appears euvolemic, but anticipate will start to retain fluid given heart failure, renal failure without dialysis. pt continues to have a metabolic acidosis patient making urine (570mL this a.m.) chronic anemia stable, continue to monitor normal calcium, phosphorous level is just slightly elevated, potassium within normal limits. Discussed with pt he needs to strictly avoid nephrotoxic substances including NSAIDs. Discussed concern regarding new fevers with patient given his poor renal function. Pt verbalizes understanding, declines discussion of HD today. Discussed with Dr Zuniga Time Spent With Patient Time: Total time managing care of this patient today ____ minutes. Progress Note: Quality Stroke Does the patient have a stroke diagnosis?: No
[2024-04-27 11:15] LABS: Glucose, Whole Blood 222 mg/dL (60-115)
[2024-04-27] MEDS: 0.9 % Sodium Chloride Flush 3 ML SYRINGE IVFLUSH ×2 (11:27→21:23)
[2024-04-27] MEDS: 0.9 % Sodium Chloride 1,000 ML 80 ML IVCONT (11:34)
[2024-04-27 12:04] LABS: SARS-CoV-2 PCR Not Detected (Not Detect.)
--- NOTE | 2024-04-27 12:22 | P.PNIM_ITS ---
Subjective Subjective Date of Service: 04/27/24 Interval History: Events from last night noted patient had fever of 102.8 rectally with tachycardia stable blood pressure, chest x-ray, UA, respiratory viral panel blood cultures and lactic acid obtained, Patient noted to have is stable renal function and metabolic acidosis however noted to have significantly elevated total and direct bili and alk phos, UA unremarkable, chest x-ray negative, showed cardiomegaly with central vascular congestion minimally improved from before, respiratory viral panel negative. This morning patient awake alert offers no acute complaints of sore throat, no cough, no shortness of breath, no chest pain, no abdominal pain, no diarrhea, denied nausea , no urinary symptoms of urgency frequency, although vomited x1 after eating ice cream Review of Systems All other system reviewed and negative. Physical Exam 2 Vital Signs: Vital Signs: Last Vital Signs Temp 97.7 F 04/27/24 11:58 Pulse 91 04/27/24 11:58 Resp 20 04/27/24 11:58 BP 124/62 04/27/24 11:58 Pulse Ox 97 04/27/24 11:58 O2 Del Method Room Air 04/27/24 11:58 O2 Flow Rate 2 04/25/24 03:03 BMI result Body Mass Index 19.8 Const: Other: General resting comfortably in no acute distress. Neck no JVD. CVS regular rate rhythm, Respiratory lungs clear to auscultation, no respiratory distress, no wheeze, no rhonchi. Gastrointestinal abdomen soft, no RUQ tenderness to palpation, non tender, bowel sounds audible. Extremities no edema. Neuro non focal Skin no rash Psych appropriate affect Objective Data Active Medications Acetaminophen (Acetaminophen 325 Mg Tablet) 650 mg PO Q6H PRN PRN Reason: Pain, Mild (Pain Scale 1-3), fever or headache Last Admin: 04/26/24 20:54 Dose: 650 mg Documented By: LIONEL Atorvastatin Calcium (Atorvastatin Calcium 80 Mg Tablet) 80 mg PO DAILY [facility] Last Admin: 04/27/24 09:37 Dose: 80 mg Documented By: IKE Calcium Carbonate (Calcium Carbonate 750 Mg Tab.Chew) 750 mg PO Q4H PRN PRN Reason: Heartburn Last Admin: 04/26/24 18:26 Dose: 750 mg Documented By: TANVIR Glucose (Glucose Gel 15 Gm Gel..Gram.) 15 gm PO Q15M PRN; Protocol PRN Reason: per Hypoglycemia Standing Ord. Heparin Sodium (Porcine) (Heparin Sodium,Porcine 5,000 Unit/Ml Vial) 5,000 unit SUBCUT Q12H [facility] Last Admin: 04/27/24 04:33 Dose: 5,000 unit Documented By: LIONEL Dextrose (D10) 250 mls @ 750 mls/hr IV Q15M PRN; Protocol PRN Reason: per Hypoglycemia Standing Ord. Doxycycline Hyclate 100 mg/ (Sodium Chloride) 250 mls @ 166.67 mls/hr IV Q12H [facility] Last Infusion: 04/27/24 03:15 Dose: Infused Documented By: LIONEL Sodium Chloride (Ns) 1,000 mls @ 80 mls/hr IVCONT .[id number] [facility] Last Admin: 04/27/24 11:34 Dose: 80 mls/hr Documented By: IKE Insulin Human Lispro (Insulin Lispro 100 Unit/Ml 3 Ml Vial) 0 unit SUBCUT QIDACHS [facility]; Protocol Last Admin: 04/27/24 11:26 Dose: 4 unit Documented By: IKE Isosorbide Mononitrate (Isosorbide Mononitrate 30 Mg Tab.Er.24h) 30 mg PO DAILY [facility]; Protocol Last Admin: 04/27/24 09:36 Dose: 30 mg Documented By: IKE Magnesium Hydroxide (Milk Of Magnesia 30 Ml Oral.Susp) 30 ml PO DAILY PRN PRN Reason: Constipation Melatonin (Melatonin 3 Mg Tablet) 6 mg PO BEDTIME PRN PRN Reason: Insomnia Last Admin: 04/26/24 20:53 Dose: 6 mg Documented By: LIONEL Montelukast Sodium (Montelukast Sodium 10 Mg Tablet) 10 mg PO DAILY [facility] Last Admin: 04/27/24 09:37 Dose: 10 mg Documented By: IKE Ondansetron HCl (Ondansetron Hcl 4 Mg/2 Ml Vial) 4 mg IVPUSH Q8H PRN PRN Reason: Nausea and Vomiting Sodium Chloride (0.9 % Sodium Chloride Flush 3 Ml Syringe) 3 ml IVFLUSH QSHIFT [facility] Last Admin: 04/27/24 11:27 Dose: 3 ml Documented By: IKE Labs 04/27/24 06:02 04/27/24 06:02 Labs: Laboratory Results - last 24 hr 04/26/24 04/26/24 04/26/24 13:56 15:58 21:16 MCV MCH MCHC RDW Plt Count MPV Immature Gran % (Auto) Neut % (Auto) Lymph % (Auto) [place] % (Auto) Eos % (Auto) Baso % (Auto) Lymph # (Auto) [place] # (Auto) Eos # (Auto) Baso # (Auto) Abs Immat Gran (auto) Absolute Neuts (auto) Absolute Nucleated RBC Nucleated RBC % (auto) Neutrophils % (Manual) Band Neutrophils % Lymphocytes % (Manual) Monocytes % (Manual) Eosinophils % (Manual) Abs Neuts (Manual) Lymphocytes # (Manual) Monocytes # (Manual) Eosinophils # (Manual) Nucleated RBCs Platelet Estimate Plt Morphology Comment RBC Morphology Ovalocytes [place] Cells Anion Gap 22 H Estim Creat Clear Calc 9.6 Estimated GFR 10 POC Glucose 182 H 172 H Random Glucose 162 H Lactic Acid Calcium 8.9 Magnesium Total Bilirubin Direct Bilirubin AST ALT Alkaline Phosphatase Total Protein Albumin Lipase Urine Color Urine Appearance Urine pH Ur Specific [place] Urine Protein Urine Glucose (UA) Urine Ketones Urine Blood Urine Nitrite Ur Leukocyte Esterase Urine RBC Urine WBC Ur Squamous Epith Cells Urine Bacteria Hyaline Casts Granular Casts Respiratory Panel [place] Adenovirus (Rapid PCR) B.pert (TEM-PCR) B.parapertussis DNA PCR C. pneumoniae DNA (PCR) Coronavirus OC43 (PCR) Coronavirus HKU1 (PCR) Coronavirus 229E (PCR) Coronavirus NL63 (PCR) Human Metapneumovir PCR Influenza A (RT-PCR) Influenza Type A (PCR) Influenza B (RT-PCR) Influenza Type B (PCR) M. pneumoniae (PCR) Parainfluenza 1 (PCR) Parainfluenza 2 (PCR) Parainfluenza 3 (PCR) Parainfluenza 4 (PCR) RSV (PCR) RSV RNA Qual (PCR) Entero/Rhino (PCR) SARS-CoV-2 RNA (RT-PCR) 04/26/24 04/26/24 04/27/24 22:06 22:07 01:45 MCV 79.6 L MCH 25.1 L MCHC 31.5 RDW 16.9 H Plt Count 169 MPV 8.9 L Immature Gran % (Auto) Cancelled Neut % (Auto) Cancelled Lymph % (Auto) Cancelled [place] % (Auto) Cancelled Eos % (Auto) Cancelled Baso % (Auto) Cancelled Lymph # (Auto) Cancelled [place] # (Auto) Cancelled Eos # (Auto) Cancelled Baso # (Auto) Cancelled Abs Immat Gran (auto) Cancelled Absolute Neuts (auto) Cancelled Absolute Nucleated RBC 0.000 Nucleated RBC % (auto) 0.0 Neutrophils % (Manual) 96 H Band Neutrophils % 1 L Lymphocytes % (Manual) 1 L Monocytes % (Manual) 1 L Eosinophils % (Manual) 1 Abs Neuts (Manual) 10.6 H Lymphocytes # (Manual) 0.1 L Monocytes # (Manual) 0.1 Eosinophils # (Manual) 0.1 Nucleated RBCs 1 H Platelet Estimate NORMAL Plt Morphology Comment NORMAL RBC Morphology NOTED Ovalocytes 1+ (5-14) [place] Cells 3+ (>5) Anion Gap 22 H Estim Creat Clear Calc 9.4 Estimated GFR 10 POC Glucose Random Glucose 172 H Lactic Acid 1.6 Calcium 8.9 Magnesium 2.4 Total Bilirubin 4.5 H Direct Bilirubin 3.5 H AST 62 H ALT 76 H Alkaline Phosphatase 457 H Total Protein 5.8 L Albumin 3.2 L Lipase 80 H Urine Color Urine Appearance Urine pH Ur Specific [place] Urine Protein Urine Glucose (UA) Urine Ketones Urine Blood Urine Nitrite Ur Leukocyte Esterase Urine RBC Urine WBC Ur Squamous Epith Cells Urine Bacteria Hyaline Casts Granular Casts Respiratory Panel [place] See Note Adenovirus (Rapid PCR) Not Detected B.pert (TEM-PCR) Not Detected B.parapertussis DNA PCR Not Detected C. pneumoniae DNA (PCR) Not Detected Coronavirus OC43 (PCR) Not Detected Coronavirus HKU1 (PCR) Not Detected Coronavirus 229E (PCR) Not Detected Coronavirus NL63 (PCR) Not Detected Human Metapneumovir PCR Not Detected Influenza A (RT-PCR) Not Detected Influenza Type A (PCR) NEGATIVE Influenza B (RT-PCR) Not Detected Influenza Type B (PCR) NEGATIVE M. pneumoniae (PCR) Not Detected Parainfluenza 1 (PCR) Not Detected Parainfluenza 2 (PCR) Not Detected Parainfluenza 3 (PCR) Not Detected Parainfluenza 4 (PCR) Not Detected RSV (PCR) Not Detected RSV RNA Qual (PCR) NEGATIVE Entero/Rhino (PCR) Not Detected SARS-CoV-2 RNA (RT-PCR) Not Detected 04/27/24 04/27/24 04/27/24 01:45 06:02 06:15 MCV 80.1 MCH 24.6 L MCHC 30.7 L RDW 16.9 H Plt Count 178 MPV 9.1 L Immature Gran % (Auto) Neut % (Auto) Lymph % (Auto) [place] % (Auto) Eos % (Auto) Baso % (Auto) Lymph # (Auto) [place] # (Auto) Eos # (Auto) Baso # (Auto) Abs Immat Gran (auto) Absolute Neuts (auto) Absolute Nucleated RBC 0.000 Nucleated RBC % (auto) 0.0 Neutrophils % (Manual) Band Neutrophils % Lymphocytes % (Manual) Monocytes % (Manual) Eosinophils % (Manual) Abs Neuts (Manual) Lymphocytes # (Manual) Monocytes # (Manual) Eosinophils # (Manual) Nucleated RBCs Platelet Estimate Plt Morphology Comment RBC Morphology Ovalocytes [place] Cells Anion Gap 21 H Estim Creat Clear Calc 9.4 Estimated GFR 10 POC Glucose Random Glucose 143 H Lactic Acid Calcium 8.9 Magnesium Total Bilirubin Direct Bilirubin AST ALT Alkaline Phosphatase Total Protein Albumin Lipase Urine Color Yellow Urine Appearance Hazy Urine pH 5.5 Ur Specific [place] 1.020 Urine Protein 100 (2+) H Urine Glucose (UA) 100 H Urine Ketones Negative Urine Blood Trace Urine Nitrite Negative Ur Leukocyte Esterase Negative Urine RBC 0-2 Urine WBC 0-5 Ur Squamous Epith Cells 6-10 Urine Bacteria None Seen Hyaline Casts 3-5 Granular Casts Present Respiratory Panel [place] Adenovirus (Rapid PCR) B.pert (TEM-PCR) B.parapertussis DNA PCR C. pneumoniae DNA (PCR) Coronavirus OC43 (PCR) Coronavirus HKU1 (PCR) Coronavirus 229E (PCR) Coronavirus NL63 (PCR) Human Metapneumovir PCR Influenza A (RT-PCR) Influenza Type A (PCR) Influenza B (RT-PCR) Influenza Type B (PCR) M. pneumoniae (PCR) Parainfluenza 1 (PCR) Parainfluenza 2 (PCR) Parainfluenza 3 (PCR) Parainfluenza 4 (PCR) RSV (PCR) RSV RNA Qual (PCR) Entero/Rhino (PCR) SARS-CoV-2 RNA (RT-PCR) NEGATIVE 04/27/24 04/27/24 07:11 11:11 MCV MCH MCHC RDW Plt Count MPV Immature Gran % (Auto) Neut % (Auto) Lymph % (Auto) [place] % (Auto) Eos % (Auto) Baso % (Auto) Lymph # (Auto) [place] # (Auto) Eos # (Auto) Baso # (Auto) Abs Immat Gran (auto) Absolute Neuts (auto) Absolute Nucleated RBC Nucleated RBC % (auto) Neutrophils % (Manual) Band Neutrophils % Lymphocytes % (Manual) Monocytes % (Manual) Eosinophils % (Manual) Abs Neuts (Manual) Lymphocytes # (Manual) Monocytes # (Manual) Eosinophils # (Manual) Nucleated RBCs Platelet Estimate Plt Morphology Comment RBC Morphology Ovalocytes [place] Cells Anion Gap Estim Creat Clear Calc Estimated GFR POC Glucose 155 H 222 H Random Glucose Lactic Acid Calcium Magnesium Total Bilirubin Direct Bilirubin AST ALT Alkaline Phosphatase Total Protein Albumin Lipase Urine Color Urine Appearance Urine pH Ur Specific [place] Urine Protein Urine Glucose (UA) Urine Ketones Urine Blood Urine Nitrite Ur Leukocyte Esterase Urine RBC Urine WBC Ur Squamous Epith Cells Urine Bacteria Hyaline Casts Granular Casts Respiratory Panel [place] Adenovirus (Rapid PCR) B.pert (TEM-PCR) B.parapertussis DNA PCR C. pneumoniae DNA (PCR) Coronavirus OC43 (PCR) Coronavirus HKU1 (PCR) Coronavirus 229E (PCR) Coronavirus NL63 (PCR) Human Metapneumovir PCR Influenza A (RT-PCR) Influenza Type A (PCR) Influenza B (RT-PCR) Influenza Type B (PCR) M. pneumoniae (PCR) Parainfluenza 1 (PCR) Parainfluenza 2 (PCR) Parainfluenza 3 (PCR) Parainfluenza 4 (PCR) RSV (PCR) RSV RNA Qual (PCR) Entero/Rhino (PCR) SARS-CoV-2 RNA (RT-PCR) Assessment and Plan (1) KAILEY (acute kidney injury): Status: Acute (2) CKD (chronic kidney disease) stage 4, GFR 15-29 ml/min: Status: Acute (3) Fever: Status: Resolved Plan 83 year old man presenting with CHF and Pneumonia Acute hypoxic respiratory failure secondary to acute exacerbation of heart failure with reduced ejection fraction Feeling better denies shortness of breath Diuretics on hold due to worsening renal function BNP [id number], on admission improved to 3601 Echocardiogram showed EF of 15-20% with severe global hypokinesis, abnormal diastolic function, bioprosthetic aortic valve functioning abnormally Wean oxygen as tolerated Recurrent Fever no source of infection found, initially felt to have pneumonia, chest x-ray showed no infiltrates, UA negative, respiratory viral panel negative, abdominal CT scan showed cardiomegaly/splenomegaly, BPH, no source of infection Or elevated bili noted. Lactic acid 1.6, WBC 12.2, improved from 14 lb 1 on admission, no skin rash noted, initial blood cultures 04/23 neg-, repeat blood cultures pending. Receive doxycycline but since no source of infection noted was discontinued on Apr 26 Worsening total bili, direct bili and alk-phos CT abdomen showed no acute abnormality,Follow abdominal ultrasound DC IV doxycycline/obtain ID consult. Elevated total and direct bili/alk-phos No significant elevation of liver enzymes, less likely passive congestion No abdominal pain CT abdomen unremarkable follow abdominal ultrasound/ GI/surgical consultation depending upon ultrasound report. 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 Nguyen Decreased appetite due to kidney disease continue ensure and encourage ambulation Elevated troponin Peaked at 179.5 Secondary to acute congestive heart failure No ischemic changes noted on EKG Acute hyperkalemia resolved Diabetes mellitus type 2 Stable blood sugars, continue Sliding scale, ADA diet Hypertension Soft blood pressures will hold hydralazine , continue isosorbide low-dose, beta-blockers and diuretics discontinued COPD/asthma No exacerbation, Albuterol as needed Diabetic neuropathy gabapentin, discontinued, likely cause of tremors twitching and fever. DVT prophylaxis with heparin Full code In my clinical judgment patient requires continued inpatient hospitalization for treatment of KAILEY/CHF/recurrent fevers with no source of infection requiring medication adjustment and expert consultation Quality Stroke Does the patient have a stroke diagnosis?: No VTE Prior VTE?: No VTE Risk Level:: Medical - moderate - high VTE Device Contraindication: Treatment Not Indicated VTE Drug Contraindication: N/A - Med Ordered
[2024-04-27] MEDS: Calcium Carbonate 750 MG TAB.CHEW PO (16:03)
[2024-04-27 16:52] LABS: Glucose, Whole Blood 217 mg/dL (60-115)
--- NOTE | 2024-04-27 17:52 | P.PNCA_ITS ---
Subjective Subjective Date of Service: 04/27/24 Interval history: Seen and examined at bedside in the morning. Overnight he had fever and worsening confusion. He has been restarted on doxycycline although the source of infection is unclear currently. He was somewhat tired and sleepy in the morning. His main complaint was that he is not hungry. Physical Exam Vital Signs: Last Vital Signs Temp 97.7 F 04/27/24 15:29 Pulse 92 04/27/24 15:29 Resp 17 04/27/24 15:29 BP 121/67 04/27/24 15:29 Pulse Ox 97 04/27/24 15:29 O2 Del Method Room Air 04/27/24 15:29 O2 Flow Rate 2 04/25/24 03:03 BMI result Body Mass Index 19.8 GENERAL APPEARANCE: Sleepy but arousable. NECK: no carotid bruit, + jugular venous distention. SKIN: no suspicious lesions, warm and dry. HEART: Ejection systolic murmur with preserved 2nd heart sound, regular rate and rhythm. LUNGS: Clear to auscultation. ABDOMEN: soft, nontender. EXTREMITIES: no edema. PERIPHERAL PULSES: equal. NEUROLOGIC: No gross deficits, AAO X 3 Objective Labs and Meds 04/27/24 06:02 04/27/24 06:02 Lab results: Laboratory Results - last 24 hr 04/26/24 04/26/24 04/26/24 21:16 22:06 22:07 WBC 10.9 H RBC 4.11 L Hgb 10.3 L Hct 32.7 L MCV 79.6 L MCH 25.1 L MCHC 31.5 RDW 16.9 H Plt Count 169 MPV 8.9 L Immature Gran % (Auto) Cancelled Neut % (Auto) Cancelled Lymph % (Auto) Cancelled [place] % (Auto) Cancelled Eos % (Auto) Cancelled Baso % (Auto) Cancelled Lymph # (Auto) Cancelled [place] # (Auto) Cancelled Eos # (Auto) Cancelled Baso # (Auto) Cancelled Abs Immat Gran (auto) Cancelled Absolute Neuts (auto) Cancelled Absolute Nucleated RBC 0.000 Nucleated RBC % (auto) 0.0 Neutrophils % (Manual) 96 H Band Neutrophils % 1 L Lymphocytes % (Manual) 1 L Monocytes % (Manual) 1 L Eosinophils % (Manual) 1 Abs Neuts (Manual) 10.6 H Lymphocytes # (Manual) 0.1 L Monocytes # (Manual) 0.1 Eosinophils # (Manual) 0.1 Nucleated RBCs 1 H Platelet Estimate NORMAL Plt Morphology Comment NORMAL RBC Morphology NOTED Ovalocytes 1+ (5-14) [place] Cells 3+ (>5) Sodium 138 Potassium 4.0 Chloride 106 Carbon Dioxide 14 L Anion Gap 22 H BUN 106 H Creatinine 5.40 H* Estim Creat Clear Calc 9.4 Estimated GFR 10 POC Glucose 172 H Random Glucose 172 H Lactic Acid 1.6 Calcium 8.9 Magnesium 2.4 Total Bilirubin 4.5 H Direct Bilirubin 3.5 H AST 62 H ALT 76 H Alkaline Phosphatase 457 H Total Protein 5.8 L Albumin 3.2 L Lipase 80 H Urine Color Urine Appearance Urine pH Ur Specific [place] Urine Protein Urine Glucose (UA) Urine Ketones Urine Blood Urine Nitrite Ur Leukocyte Esterase Urine RBC Urine WBC Ur Squamous [place] Cells Urine Bacteria Hyaline Casts Granular Casts Respiratory Panel [place] Adenovirus (Rapid PCR) B.pert (TEM-PCR) B.parapertussis DNA PCR C. pneumoniae DNA (PCR) Coronavirus OC43 (PCR) Coronavirus HKU1 (PCR) Coronavirus 229E (PCR) Coronavirus NL63 (PCR) Human Metapneumovir PCR Influenza A (RT-PCR) Influenza Type A (PCR) Influenza B (RT-PCR) Influenza Type B (PCR) M. pneumoniae (PCR) Parainfluenza 1 (PCR) Parainfluenza 2 (PCR) Parainfluenza 3 (PCR) Parainfluenza 4 (PCR) RSV (PCR) RSV RNA Qual (PCR) Entero/Rhino (PCR) SARS-CoV-2 RNA (RT-PCR) 04/27/24 04/27/24 04/27/24 01:45 01:45 06:02 WBC 12.2 H RBC 4.18 L Hgb 10.3 L Hct 33.5 L MCV 80.1 MCH 24.6 L MCHC 30.7 L RDW 16.9 H Plt Count 178 MPV 9.1 L Immature Gran % (Auto) Neut % (Auto) Lymph % (Auto) [place] % (Auto) Eos % (Auto) Baso % (Auto) Lymph # (Auto) [place] # (Auto) Eos # (Auto) Baso # (Auto) Abs Immat Gran (auto) Absolute Neuts (auto) Absolute Nucleated RBC 0.000 Nucleated RBC % (auto) 0.0 Neutrophils % (Manual) Band Neutrophils % Lymphocytes % (Manual) Monocytes % (Manual) Eosinophils % (Manual) Abs Neuts (Manual) Lymphocytes # (Manual) Monocytes # (Manual) Eosinophils # (Manual) Nucleated RBCs Platelet Estimate Plt Morphology Comment RBC Morphology Ovalocytes [place] Cells Sodium 140 Potassium 4.1 Chloride 108 Carbon Dioxide 15 L Anion Gap 21 H BUN 100 H Creatinine 5.44 H* Estim Creat Clear Calc 9.4 Estimated GFR 10 POC Glucose Random Glucose 143 H Lactic Acid Calcium 8.9 Magnesium Total Bilirubin Direct Bilirubin AST ALT Alkaline Phosphatase Total Protein Albumin Lipase Urine Color Urine Appearance Urine pH Ur Specific [place] Urine Protein Urine Glucose (UA) Urine Ketones Urine Blood Urine Nitrite Ur Leukocyte Esterase Urine RBC Urine WBC Ur Squamous Epith Cells Urine Bacteria Hyaline Casts Granular Casts Respiratory Panel [place] See Note Adenovirus (Rapid PCR) Not Detected B.pert (TEM-PCR) Not Detected B.parapertussis DNA PCR Not Detected C. pneumoniae DNA (PCR) Not Detected Coronavirus OC43 (PCR) Not Detected Coronavirus HKU1 (PCR) Not Detected Coronavirus 229E (PCR) Not Detected Coronavirus NL63 (PCR) Not Detected Human Metapneumovir PCR Not Detected Influenza A (RT-PCR) Not Detected Influenza Type A (PCR) NEGATIVE Influenza B (RT-PCR) Not Detected Influenza Type B (PCR) NEGATIVE M. pneumoniae (PCR) Not Detected Parainfluenza 1 (PCR) Not Detected Parainfluenza 2 (PCR) Not Detected Parainfluenza 3 (PCR) Not Detected Parainfluenza 4 (PCR) Not Detected RSV (PCR) Not Detected RSV RNA Qual (PCR) NEGATIVE Entero/Rhino (PCR) Not Detected SARS-CoV-2 RNA (RT-PCR) Not Detected NEGATIVE 04/27/24 04/27/24 04/27/24 06:15 07:11 11:11 WBC RBC Hgb Hct MCV MCH MCHC RDW Plt Count MPV Immature Gran % (Auto) Neut % (Auto) Lymph % (Auto) [place] % (Auto) Eos % (Auto) Baso % (Auto) Lymph # (Auto) [place] # (Auto) Eos # (Auto) Baso # (Auto) Abs Immat Gran (auto) Absolute Neuts (auto) Absolute Nucleated RBC Nucleated RBC % (auto) Neutrophils % (Manual) Band Neutrophils % Lymphocytes % (Manual) Monocytes % (Manual) Eosinophils % (Manual) Abs Neuts (Manual) Lymphocytes # (Manual) Monocytes # (Manual) Eosinophils # (Manual) Nucleated RBCs Platelet Estimate Plt Morphology Comment RBC Morphology Ovalocytes [place] Cells Sodium Potassium Chloride Carbon Dioxide Anion Gap BUN Creatinine Estim Creat Clear Calc Estimated GFR POC Glucose 155 H 222 H Random Glucose Lactic Acid Calcium Magnesium Total Bilirubin Direct Bilirubin AST ALT Alkaline Phosphatase Total Protein Albumin Lipase Urine Color Yellow Urine Appearance Hazy Urine pH 5.5 Ur Specific [place] 1.020 Urine Protein 100 (2+) H Urine Glucose (UA) 100 H Urine Ketones Negative Urine Blood Trace Urine Nitrite Negative Ur Leukocyte Esterase Negative Urine RBC 0-2 Urine WBC 0-5 Ur Squamous Epith Cells 6-10 Urine Bacteria None Seen Hyaline Casts 3-5 Granular Casts Present Respiratory Panel [place] Adenovirus (Rapid PCR) B.pert (TEM-PCR) B.parapertussis DNA PCR C. pneumoniae DNA (PCR) Coronavirus OC43 (PCR) Coronavirus HKU1 (PCR) Coronavirus 229E (PCR) Coronavirus NL63 (PCR) Human Metapneumovir PCR Influenza A (RT-PCR) Influenza Type A (PCR) Influenza B (RT-PCR) Influenza Type B (PCR) M. pneumoniae (PCR) Parainfluenza 1 (PCR) Parainfluenza 2 (PCR) Parainfluenza 3 (PCR) Parainfluenza 4 (PCR) RSV (PCR) RSV RNA Qual (PCR) Entero/Rhino (PCR) SARS-CoV-2 RNA (RT-PCR) 04/27/24 16:45 WBC RBC Hgb Hct MCV MCH MCHC RDW Plt Count MPV Immature Gran % (Auto) Neut % (Auto) Lymph % (Auto) [place] % (Auto) Eos % (Auto) Baso % (Auto) Lymph # (Auto) [place] # (Auto) Eos # (Auto) Baso # (Auto) Abs Immat Gran (auto) Absolute Neuts (auto) Absolute Nucleated RBC Nucleated RBC % (auto) Neutrophils % (Manual) Band Neutrophils % Lymphocytes % (Manual) Monocytes % (Manual) Eosinophils % (Manual) Abs Neuts (Manual) Lymphocytes # (Manual) Monocytes # (Manual) Eosinophils # (Manual) Nucleated RBCs Platelet Estimate Plt Morphology Comment RBC Morphology Ovalocytes [place] Cells Sodium Potassium Chloride Carbon Dioxide Anion Gap BUN Creatinine Estim Creat Clear Calc Estimated GFR POC Glucose 217 H Random Glucose Lactic Acid Calcium Magnesium Total Bilirubin Direct Bilirubin AST ALT Alkaline Phosphatase Total Protein Albumin Lipase Urine Color Urine Appearance Urine pH Ur Specific [place] Urine Protein Urine Glucose (UA) Urine Ketones Urine Blood Urine Nitrite Ur Leukocyte Esterase Urine RBC Urine WBC Ur Squamous [place]ith Cells Urine Bacteria Hyaline Casts Granular Casts Respiratory Panel [place] Adenovirus (Rapid PCR) B.pert (TEM-PCR) B.parapertussis DNA PCR C. pneumoniae DNA (PCR) Coronavirus OC43 (PCR) Coronavirus HKU1 (PCR) Coronavirus 229E (PCR) Coronavirus NL63 (PCR) Human Metapneumovir PCR Influenza A (RT-PCR) Influenza Type A (PCR) Influenza B (RT-PCR) Influenza Type B (PCR) M. pneumoniae (PCR) Parainfluenza 1 (PCR) Parainfluenza 2 (PCR) Parainfluenza 3 (PCR) Parainfluenza 4 (PCR) RSV (PCR) RSV RNA Qual (PCR) Entero/Rhino (PCR) SARS-CoV-2 RNA (RT-PCR) Imaging Radiologist's impression: Impressions Chest X-Ray 04/26/24 23:05 IMPRESSION: Cardiomegaly with central vascular congestion, minimally improved when compared to prior. Electronically signed by: Emiliano Kemp MD 04/27/2024 12:24 AM EDT Abdomen/Pelvis CT 04/27/24 09:09 IMPRESSION: 1. A cause for the patient's elevated bilirubin has not been found. 2. Incidental note made of cardiomegaly, elevated right hemidiaphragm, splenomegaly, BPH and other findings described above. Fleischner guidelines were followed. Electronically signed by: Emiliano Kmep MD 04/27/2024 10:52 AM EDT RP Abdomen Ultrasound 04/27/24 10:10 IMPRESSION: 1. Thickening of the gallbladder wall. No pericholecystic fluid. 2. Multiple gallbladder polyps with the largest measuring 0.5 cm. Electronically signed by: Ayleen Waggoner MD 04/27/2024 01:08 PM EDT RP Progress Note: A&P Assessment and plan (1) KAILEY (acute kidney injury): Status: Acute (2) Altered mental status: Status: Acute (3) Congestive heart failure: Status: Acute (4) CKD (chronic kidney disease) stage 4, GFR 15-29 ml/min: Status: Acute Plan Pleasant 83 year gentleman with known history of cardiomyopathy and previous bypass surgery and aortic valve replacement with bioprosthetic valve. He has advanced CKD. Recently admitted with congestive heart failure when he was diuresed and his medications were adjusted and he was started on hydralazine and nitrate combination because of advanced CKD and inability to use Arnulfo/ARB. He is now presenting with fever and some concern for infection although no source has been found. He was quite confused and was having twitching which I think is related to gabapentin and worsening kidney function. Gabapentin has been stopped and he has improved significantly. Clinically he was volume overloaded and has some congestive heart failure on admission but with diuresis his kidney function has worsened significantly. Currently we are holding diuretics. I am also holding beta-florencio currently. His blood pressure has improved somewhat and I am reintroducing the hydralazine 25 mg 3 times a day. Continue isosorbide. He is not agreeable for dialysis currently but this may need further discussions down the line. 04/27/24: He had fever overnight and has been restarted on antibiotics. His BUN creatinine continues to be high. His volume status overall is somewhat worse and I think we should resume his oral diuretics. Starting him back on p.o. Lasix 80 mg daily. Sepsis workup as per primary team. We will follow along with you. Thank you for allowing me to participate in the care of your patient. Please feel free to contact me if you have any questions. Time Spent With Patient Time: Total time managing care of this patient today ____ minutes. Progress Note: Quality Stroke Does the patient have a stroke diagnosis?: No Procedures Date of Service Date of Service: 04/27/24
[2024-04-27 19:59] LABS: Glucose, Whole Blood 205 mg/dL (60-115)
[2024-04-27] MEDS: hydrALAZINE HCl 25 MG TABLET PO (21:23)
[2024-04-28] VITALS: BP 101/55; PULSE 91; RESP 20; TEMP 36.3; O2SAT 95
[2024-04-28] MEDS: Acetaminophen 1,000 MG/100 ML PIGGYBACK 400 MG IV (00:13)
[2024-04-28 00:20] LABS: Troponin-I High Sensitivity 390.3 ng/L (<3.5-35.0)
[2024-04-28 03:54] VITALS: BP 104/59; PULSE 91; RESP 20; TEMP 36.3; O2SAT 99
[2024-04-28] MEDS: Heparin Sodium,Porcine 5,000 UNIT/ML VIAL 5000 UNIT SUBCUT ×2 (04:54→18:58)
--- NOTE | 2024-04-28 06:26 | PC.NURSE ---
Pt Aox3, vague and forgetful at times. Incontinent of urine x2, bowel x1. Approx 2310 pt asked to see his RN, pt reported 5/10 cp (non radiating and in center of chest) and feeling SOB. Pt stated he uses 2L O2 nc when laying down . Pt placed on 2L O2 nc and after a few minutes stated he no longer feels sob, O2 sat 95% a that time. Ligia LEE who ordered ekg, labs, and 1x IV tylenol. Pt fell asleep and reported pain gone. Triad applied to BL buttocks d/t redness and peeling skin. Frequent checks, camera in room, bed alarm on, call bhatti within reach.
[2024-04-28 07:00] LABS: Hematocrit 34.1 % (42.0-52.0); Hemoglobin 10.6 g/dl (14.0-18.0); Mean Corpuscular HGB Conc 31.1 g/dl (31.0-36.0); Mean Corpuscular Hemoglobin 24.8 pg (27.0-33.0); Mean Corpuscular Volume 79.9 fL (80.0-98.0); Mean Platelet Volume 9.2 fL (9.4-12.4); Platelet Count 166 X10*3/uL (160-400); Red Blood Count 4.27 X10*6/uL (4.60-5.80); Red Cell Distribution Width 18.2 % (11.0-16.0); White Blood Count 16.3 X10*3/uL (4.8-10.8)
[2024-04-28 07:12] LABS: Glucose, Whole Blood 155 mg/dL (60-115)
[2024-04-28 07:23] LABS: Alanine Aminotransferase 108 U/L (0-40); Alkaline Phosphatase 527 U/L (39-117); Anion Gap 21 (12-20); Aspartate Amino Transferase 85 U/L (5-37); Blood Urea Nitrogen 105 mg/dL (9-16); Calcium 9.2 mg/dL (8.4-10.2); Carbon Dioxide 16 mmol/L (22-29); Chloride 107 mmol/L (96-108); Creatinine Clr Calc Pharmacy 8.9; Estimated Glomerular Filt Rate 10; Gamma Glutamyl Transpeptidase 207 U/L (11-51); Glucose Random 146 mg/dL (60-115); Potassium 4.1 mmol/L (3.3-5.1); Sodium 140 mmol/L (135-145); Total Protein 5.8 g/dL (6.5-8.0)
--- NOTE | 2024-04-28 07:30 | PM.GICN ---
History of Present Illness Data of Consult Service Date: 04/28/24 Requesting physician: Yamil Houston Primary Care Provider: Antony Pappas MD HPI Reason for consult: Elevated LFTs 83 YM with congestive heart failure, cardiomyopathy, previous bypass surgery and aortic valve replacement with bioprosthetic valve. diabetes mellitus, hypertension, COPD - GI consulted for elevated LFTs 04/23/24 Pt was admitted to [facility] after presenting to the ED with mental status changes, lethargy, fever, cough and worsening lower extremity edema. Patient was recently hospitalized at [facility] for shortness of breaths and weight gain and was treated for CHF with IV diuretics and discharged home with daughter. He became more lethargic on the day of admission. In the ER, BNP was noted to be 12,068, troponin 141.1, EKG did not show any ischemic changes. Patient was placed on 2 L of oxygen via nasal cannula after 1 reading of hypoxia with oxygen saturation of 89%. Chest x-ray showing central vascular congestion and mild pulmonary edema. Head CT negative for acute abnormality. In the ER, he received Tylenol per rectum, IV Lasix, Rocephin, azithromycin and admitted for further management and treatment of acute congestive heart failure. Labs have revealed worsening LFTs with TB of 5, AST 85 ALT 108 and AP of > 500 Patient noted to have worsening renal function since admission with BUN of 105 and Cr of 5.75 today Pt denies past hx of hepatitis, Jaundice or liver disease. Complains of nausea and decreased appetite and denies abdominal pain Admits to smoking and ETOH use in the past and quitted 20 yrs ago FH is negative for liver disease 04/27/24 abd us showed: 1. Thickening of the gallbladder wall. No pericholecystic fluid. 2. Multiple gallbladder polyps with the largest measuring 0.5 cm. 04/27/[address] SCAN SHOWED: 1. A cause for the patient's elevated bilirubin has not been found. 2. Incidental note made of cardiomegaly, elevated right hemidiaphragm, splenomegaly, BPH and other findings described above. Review of Systems Review of Systems: Yes all other systems are reviewed and are negative [facility] Past Medical History Medical History (Updated 04/28/24 @ 07:31 by Jm Ng MD) KAILEY (acute kidney injury) Pneumonia CKD (chronic kidney disease) stage 3, GFR 30-59 ml/min Type 2 diabetes mellitus CHF (congestive heart failure) Hypertension Diabetes Asthma COPD (chronic obstructive pulmonary disease) CHF (congestive heart failure) Social History Social History Household Members: Family Housing: House Do you presently have visiting nurse or other home services: No Alcohol intake: never Comment: refusing alarms Patient Tobacco Use Status: Former Tobacco user Smoked in Last 30 Days: No Second Hand Smoke Exposure: No Use of substances other than those prescribed or required for medical reasons: No Currently Displaying Signs/Symptoms of Drug Intoxication Withdrawal: No Have you been hit, kicked, punched, or otherwise hurt by someone within the past year? If so, by whom?: No Do you feel safe in your current relationship?: Yes Is there a partner from a previous relationship who is making you feel unsafe now?: No Are you made to feel afraid or neglected: No Advance Directives: Yes Advance Directives Information Provided: Yes Advance Directives on File: No Advance Directives Date on File: 03/13/22 Do you have a plan to hurt others: No Plan Recently lost weight without trying: Unsure Nutrition Risks: Poor intake 0-25% >4 days service: No Current occupational status: retired Meds Allergies Allergy/AdvReac Type Severity Reaction Status Date / Time No Known Allergies Allergy Verified 04/23/24 10:23 Active Medications: Current Medications Acetaminophen (Acetaminophen 325 Mg Tablet) 650 mg PO Q6H PRN PRN Reason: Pain, Mild (Pain Scale 1-3), fever or headache Last Admin: 04/26/24 20:54 Dose: 650 mg Atorvastatin Calcium (Atorvastatin Calcium 80 Mg Tablet) 80 mg PO DAILY [facility] Last Admin: 04/27/24 09:37 Dose: 80 mg Calcium Carbonate (Calcium Carbonate 750 Mg Tab.Chew) 750 mg PO Q4H PRN PRN Reason: Heartburn Last Admin: 04/27/24 16:03 Dose: 750 mg Glucose (Glucose Gel 15 Gm Gel..Gram.) 15 gm PO Q15M PRN; Protocol PRN Reason: per Hypoglycemia Standing Ord. Heparin Sodium (Porcine) (Heparin Sodium,Porcine 5,000 Unit/Ml Vial) 5,000 unit SUBCUT Q12H [facility] Last Admin: 04/28/24 04:54 Dose: 5,000 unit Hydralazine HCl (Hydralazine Hcl 25 Mg Tablet) 25 mg PO TID [facility]; Protocol Last Admin: 04/27/24 21:23 Dose: 25 mg Dextrose (D10) 250 mls @ 750 mls/hr IV Q15M PRN; Protocol PRN Reason: per Hypoglycemia Standing Ord. Insulin Human Lispro (Insulin Lispro 100 Unit/Ml 3 Ml Vial) 0 unit SUBCUT QIDACHS [facility]; Protocol Last Admin: 04/27/24 21:22 Dose: 4 unit Isosorbide Mononitrate (Isosorbide Mononitrate 30 Mg Tab.Er.24h) 30 mg PO DAILY [facility]; Protocol Last Admin: 04/27/24 09:36 Dose: 30 mg Magnesium Hydroxide (Milk Of Magnesia 30 Ml Oral.Susp) 30 ml PO DAILY PRN PRN Reason: Constipation Melatonin (Melatonin 3 Mg Tablet) 6 mg PO BEDTIME PRN PRN Reason: Insomnia Last Admin: 04/26/24 20:53 Dose: 6 mg Montelukast Sodium (Montelukast Sodium 10 Mg Tablet) 10 mg PO DAILY [facility] Last Admin: 04/27/24 09:37 Dose: 10 mg Nitroglycerin (Nitroglycerin 0.4 Mg Tab.Subl) 0.4 mg SUBLINGUAL Q5MX3 PRN PRN Reason: Chest Pain Ondansetron HCl (Ondansetron Hcl 4 Mg/2 Ml Vial) 4 mg IVPUSH Q8H PRN PRN Reason: Nausea and Vomiting Sodium Chloride (0.9 % Sodium Chloride Flush 3 Ml Syringe) 3 ml IVFLUSH QSHIFT [facility] Last Admin: 04/27/24 21:23 Dose: 3 ml Torsemide (Torsemide 20 Mg Tablet) 40 mg PO DAILY [facility]; Protocol Home Medications ?Medication ?Instructions ?Recorded ?Confirmed ?Last Taken ?Type albuterol sulfate 90 mcg/actuation 2 puff PO Q6H PRN wheezing 03/11/22 04/23/24 04/05/24 08:00 History aerosol inhaler aspirin 81 mg tablet,delayed 81 mg PO DAILY 03/11/22 04/23/24 04/05/24 08:00 History release atorvastatin 80 mg tablet 1 tab PO DAILY 03/11/22 04/23/24 04/05/24 08:00 History gabapentin 300 mg capsule 1 cap PO BEDTIME 08/1704/23/24 04/04/24 History montelukast 10 mg tablet 1 tab PO DAILY 03/11/22 04/23/24 04/05/24 08:00 History glipizide 10 mg tablet 10 mg PO BID 07/31/23 04/23/24 04/05/24 08:00 History insulin degludec 200 unit/mL (3 65 unit subcut DAILY 07/31/23 04/23/24 04/05/24 08:00 History mL) subcutaneous pen (Tresiba FlexTouch U-200 insulin) fluticasone fur. 200 mcg-umeclid 1 ea inhalation DAILY 04/05/24 04/23/24 04/05/24 History 62.5 mcg-vilant 25 mcg inhalat.powder (Trelegy Ellipta) dapagliflozin propanediol 10 mg 10 mg PO DAILY 04/23/24 04/23/24 Unknown History tablet (Farxiga) Vitamin D2 1 mg PO QWEEK 04/24/24 04/24/24 04/17/24 History Physical Exam Vital Signs: Vital Signs: Last Vital Signs Temp 97.3 F 04/28/24 03:54 Pulse 91 04/28/24 03:54 Resp 20 04/28/24 03:54 BP 104/59 L 04/28/24 03:54 Pulse Ox 99 04/28/24 03:54 O2 Del Method Nasal Cannula 04/28/24 03:54 O2 Flow Rate 2 04/28/24 03:54 BMI result Body Mass Index 19.8 Const: Other: General awake alert appears short of breath with bilateral upper extremity twitching. Neck no JVD. CVS regular rate rhythm, Respiratory lungs few bibasilar crackles Gastrointestinal abdomen soft, no RUQ tenderness to palpation, non tender, bowel sounds audible. Extremities pitting edema. Neuro non focal /myoclonus Skin no rash Psych appropriate affect Results Labs 04/28/24 06:21 04/28/24 06:21 Labs: Short CBC 04/28/24 Range/Units 06:21 WBC 16.3 H (4.8-10.8) X10*3/uL Hgb 10.6 L (14.0-18.0) g/dl Hct 34.1 L (42.0-52.0) % Plt Count 166 (160-400) X10*3/uL BMP 04/28/24 06:21 Sodium 140 Potassium 4.1 Chloride 107 Carbon Dioxide 16 L BUN 105 H Creatinine 5.75 H* Calcium 9.2 Liver Function 04/28/24 Range/Units 06:21 Total Bilirubin 5.0 H (0.0-1.0) mg/dL Direct Bilirubin 4.0 H (0.0-0.5) mg/dL GGT 207 H (11-51) U/L AST 85 H (5-37) U/L ALT 108 H (0-40) U/L Alkaline Phosphatase 527 H (39-117) U/L Albumin 3.0 L (3.5-5.0) g/dL Microbiology Microbiology Results: Microbiology 04/26/24 22:06 Blood - Venous Blood Culture - Preliminary No growth after 24 hours. 04/26/24 22:06 Blood - Venous Blood Culture - Preliminary No growth after 24 hours. 04/23/24 10:53 Blood - Venous Blood Culture - Preliminary No growth after 48 hours. 04/23/24 10:45 Blood - Venous Blood Culture - Preliminary No growth after 48 hours. Assessment and Plan (1) Elevated LFTs: Status: Acute Plan 83 YM with congestive heart failure, cardiomyopathy, previous bypass surgery and aortic valve replacement with bioprosthetic valve. diabetes mellitus, hypertension, COPD - GI consulted for elevated LFTs Labs have revealed worsening LFTs with TB of 5, AST 85 ALT 108 and AP of > 500 Patient noted to have worsening renal function since admission with BUN of 105 and Cr of 5.75 today Echocardiogram showed EF of 15 to 20% Increase in LFTs is multi-factorial likely a combination of congestive hepatopathy related to CHF with low EF, renal failure and possible alcalculous cholecystitis (elevated WBC count with GB wall thickening on US) Hepatitis-B and C serologies were negative Pt had hemodialysis catheter placement today followed by urgent dialysis today. RECOMMENDATIONS: 1. Follow LFTs daily and check hepatitis serologies, GGT and antimitochondrial antibody - added to am labs 2. HIDA scan 3. Empiric IV antibiotics for acalculous cholecystitis - pending HIDA scan. 4. Anticipate LFTs will improve following HD and improvement in CHF Procedures Date of Service Date of Service: 04/28/24
[2024-04-28 07:44] VITALS: BP 116/63; PULSE 99; RESP 22; TEMP 36.6; O2SAT 98
[2024-04-28 08:07] LABS: HBS Num1 0.26 mIU/mL (0-7.99); HBc Num1 0.07 S/CO (0.00-0.79); HBsAGNum1 0.56 S/CO (0.00-0.99); Hepatitis B Core Antibody Nonreactive (Nonreactive); Hepatitis B Surface Antigen Negative (Negative); ~HepC Num1 0.07 S/CO (0.00-0.79); ~Hepatitis B Surface Antibody NONREACTIVE (Nonreactive); ~Hepatitis C Antibody Nonreactive (Nonreactive)
[2024-04-28] MEDS: Insulin Lispro 100 UNIT/ML 3 ML VIAL SUBCUT ×2 (08:16→12:20)
[2024-04-28] MEDS: Isosorbide Mononitrate 30 MG TAB.ER.24H PO (08:17)
[2024-04-28] MEDS: 0.9 % Sodium Chloride Flush 3 ML SYRINGE IVFLUSH ×3 (08:17→22:35)
[2024-04-28] MEDS: Atorvastatin Calcium 80 MG TABLET PO (08:18)
[2024-04-28] MEDS: Montelukast Sodium 10 MG TABLET PO (08:18)
[2024-04-28] MEDS: Acetaminophen 325 MG TABLET 650 MG PO (08:20)
--- NOTE | 2024-04-28 10:53 | MHC.CM.PN ---
PER MD ROUNDS, PT NOT READY TO DC PT TO START HD TODAY PT WILL LIKELY NEED STR AT DC, [facility] IS PREFERRED REFERRAL ALSO MADE TO [facility] IN CASE PT REQUIRES HD ONGOING
--- NOTE | 2024-04-28 11:06 | P.PNNP_ITS ---
Subjective Subjective Date of Service: 04/28/24 Interval history: 83 year old man with medical history of HFrEF (EF 35-40%), aortic valve replacement, DMII, HTN, COPD (pt reports on 2L NC intermittently at home), CKD stage 4, who presented to the hospital with acute hypoxic respiratory failure 2/2 CHF exacerbation and PNA. nephrology consulted for KAILEY present on admission Creatinine has been trending up, today 5.75 (yesterday 5.44) BUN trending up, today 105 Pt has myoclonus in his upper extremities pt complaining of nausea and feeling unwell reports he has not urinated much since last night, very small amount this a.m. into urinal Used to see Dr Real. Reports he was last seen by Dr Nguyen and wishes to continue to see him outpatient. Physical Exam 2 Vital Signs: Vital Signs: Last Vital Signs Temp 97.8 F 04/28/24 07:44 Pulse 99 04/28/24 07:44 Resp 22 H 04/28/24 07:44 BP 116/63 04/28/24 07:44 Pulse Ox 98 04/28/24 07:44 O2 Del Method Nasal Cannula 04/28/24 07:44 O2 Flow Rate 2 04/28/24 07:44 BMI result Body Mass Index 19.8 Const: General: comfortable and no acute distress O rientation/consciousness: oriented to person, oriented to place and oriented to time Neck: Neck: Yes no JVD Resp: Effort & Inspection: able to speak in complete sentences A uscultation: clear to auscultation bilaterally Cardio: Jugular venous distension: no JVD Rate: regular rate Rhythm: r egular rhythm Heart sounds: S1 normal heart sound present and S2 normal heart sound present GI: Other: Reports nausea Palpation (GI): Soft to palpation and nontender Rectal Exam - Male: No tenderness : General: Yes no CVA tenderness Back/Spine/Pelvis: Back: no CVA tenderness Skin: Rashes: no rashes Neuro: Other: myoclonus in upper extremities. General: oriented to person, oriented to place and oriented to time Extrem: General: Yes normal to inspection and No edema Objective Data Labs 04/28/24 06:21 04/28/24 06:21 Labs: Laboratory Results - last 24 hr 04/27/24 04/27/24 04/27/24 01:45 11:11 16:45 WBC RBC Hgb Hct MCV MCH MCHC RDW Plt Count MPV Absolute Nucleated RBC Nucleated RBC % (auto) Sodium Potassium Chloride Carbon Dioxide Anion Gap BUN Creatinine Estim Creat Clear Calc Estimated GFR POC Glucose 222 H 217 H Random Glucose Calcium Total Bilirubin Direct Bilirubin GGT AST ALT Alkaline Phosphatase Troponin I High Sens Total Protein Albumin Respiratory Panel Echols See Note Adenovirus (Rapid PCR) Not Detected B.pert (TEM-PCR) Not Detected B.parapertussis DNA PCR Not Detected C. pneumoniae DNA (PCR) Not Detected Coronavirus OC43 (PCR) Not Detected Coronavirus HKU1 (PCR) Not Detected Coronavirus 229E (PCR) Not Detected Coronavirus NL63 (PCR) Not Detected Hep Bs Antigen Hep Bs Antibody Hep B Core Total Ab Hepatitis C Ab (EIA) Human Metapneumovir PCR Not Detected Influenza A (RT-PCR) Not Detected Influenza B (RT-PCR) Not Detected M. pneumoniae (PCR) Not Detected Parainfluenza 1 (PCR) Not Detected Parainfluenza 2 (PCR) Not Detected Parainfluenza 3 (PCR) Not Detected Parainfluenza 4 (PCR) Not Detected RSV (PCR) Not Detected Entero/Rhino (PCR) Not Detected SARS-CoV-2 RNA (RT-PCR) Not Detected 04/27/24 04/27/24 04/28/24 19:55 23:48 06:21 WBC 16.3 H RBC 4.27 L Hgb 10.6 L Hct 34.1 L MCV 79.9 L MCH 24.8 L MCHC 31.1 RDW 18.2 H Plt Count 166 MPV 9.2 L Absolute Nucleated RBC 0.000 Nucleated RBC % (auto) 0.0 Sodium 140 Potassium 4.1 Chloride 107 Carbon Dioxide 16 L Anion Gap 21 H BUN 105 H Creatinine 5.75 H* Estim Creat Clear Calc 8.9 Estimated GFR 10 POC Glucose 205 H Random Glucose 146 H Calcium 9.2 Total Bilirubin 5.0 H Direct Bilirubin 4.0 H GGT 207 H AST 85 H ALT 108 H Alkaline Phosphatase 527 H Troponin I High Sens 390.3 H* D Total Protein 5.8 L Albumin 3.0 L Respiratory Panel E[place] Adenovirus (Rapid PCR) B.pert (TEM-PCR) B.parapertussis DNA PCR C. pneumoniae DNA (PCR) Coronavirus OC43 (PCR) Coronavirus HKU1 (PCR) Coronavirus 229E (PCR) Coronavirus NL63 (PCR) Hep Bs Antigen Negative Hep Bs Antibody NONREACTIVE Hep B Core Total Ab Nonreactive Hepatitis C Ab (EIA) Nonreactive Human Metapneumovir PCR Influenza A (RT-PCR) Influenza B (RT-PCR) M. pneumoniae (PCR) Parainfluenza 1 (PCR) Parainfluenza 2 (PCR) Parainfluenza 3 (PCR) Parainfluenza 4 (PCR) RSV (PCR) Entero/Rhino (PCR) SARS-CoV-2 RNA (RT-PCR) 04/28/24 07:05 WBC RBC Hgb Hct MCV MCH MCHC RDW Plt Count MPV Absolute Nucleated RBC Nucleated RBC % (auto) Sodium Potassium Chloride Carbon Dioxide Anion Gap BUN Creatinine Estim Creat Clear Calc Estimated GFR POC Glucose 155 H Random Glucose Calcium Total Bilirubin Direct Bilirubin GGT AST ALT Alkaline Phosphatase Troponin I High Sens Total Protein Albumin Respiratory Panel [place]ols Adenovirus (Rapid PCR) B.pert (TEM-PCR) B.parapertussis DNA PCR C. pneumoniae DNA (PCR) Coronavirus OC43 (PCR) Coronavirus HKU1 (PCR) Coronavirus 229E (PCR) Coronavirus NL63 (PCR) Hep Bs Antigen Hep Bs Antibody Hep B Core Total Ab Hepatitis C Ab (EIA) Human Metapneumovir PCR Influenza A (RT-PCR) Influenza B (RT-PCR) M. pneumoniae (PCR) Parainfluenza 1 (PCR) Parainfluenza 2 (PCR) Parainfluenza 3 (PCR) Parainfluenza 4 (PCR) RSV (PCR) Entero/Rhino (PCR) SARS-CoV-2 RNA (RT-PCR) Microbiology Microbiology Results: Microbiology 04/26/24 22:06 Blood - Venous Blood Culture - Preliminary No growth after 24 hours. 04/26/24 22:06 Blood - Venous Blood Culture - Preliminary No growth after 24 hours. 04/23/24 10:53 Blood - Venous Blood Culture - Preliminary No growth after 48 hours. 04/23/24 10:45 Blood - Venous Blood Culture - Preliminary No growth after 48 hours. Procedures Date of Service Date of Service: 04/28/24 Assessment & Plan Assessment and plan (1) CKD (chronic kidney disease) stage 4, GFR 15-29 ml/min: Status: Acute (2) Pulmonary edema: Status: Acute (3) Congestive heart failure: Status: Acute (4) KAILEY (acute kidney injury): Status: Acute Plan CKD stage 4 with KALIEY secondary to renal hypoperfusion 2/2 CHF exacerbation (likely precipitated by PNA) Discussion at bedside today with patient regarding worsening renal function he appears uremic, renal function worsening, breathing worsening Discussed with patient temporary HD catheter placement adn dialysis today, tomorrow and Wednesday with expectation of relieving nausea, difficulty breathing and other unpleasant symptoms Discussed there is potential for the need for longer-term dialysis, though there is a chance he will recover enough renal function after a few rounds of HD that he can maintain for sometime without dialysis Pt agreeable to temporary catheter placement and dialysis today - plan for HD today after catheter placement, as well as Wednesday and Wednesday. Will remove fluid as tolerated (maintain SBP>100). Cardiology following; further management is pending evolving data. Discussed with Dr Time Spent With Patient Time: Total time managing care of this patient today ____ minutes. Progress Note: Quality Stroke Does the patient have a stroke diagnosis?: No
[2024-04-28 11:32] LABS: Glucose, Whole Blood 170 mg/dL (60-115)
[2024-04-28 11:40] VITALS: BP 109/60; PULSE 91; RESP 20; TEMP 36.8; O2SAT 94
--- NOTE | 2024-04-28 12:51 | P.PNIM_ITS ---
Subjective Subjective Date of Service: 04/28/24 Interval History: Being followed for KAILEY on chronic kidney disease, fever ,confusion and elevated LFTs. Patient awake alert , complaining of nausea, decreased appetite, weakness and shortness of breath, denies fever chills, no abdominal pain, no diarrhea. Review of Systems All other system reviewed and are negative. Physical Exam 2 Vital Signs: Vital Signs: Last Vital Signs Temp 98.3 F 04/28/24 11:40 Pulse 91 04/28/24 11:40 Resp 20 04/28/24 11:40 BP 109/60 04/28/24 11:40 Pulse Ox 94 04/28/24 11:40 O2 Del Method Room Air 04/28/24 11:40 O2 Flow Rate 2 04/28/24 07:44 BMI result Body Mass Index 19.8 Const: Other: General awake alert appears short of breath with bilateral upper extremity twitching. Neck no JVD. CVS regular rate rhythm, Respiratory lungs few bibasilar crackles Gastrointestinal abdomen soft, no RUQ tenderness to palpation, non tender, bowel sounds audible. Extremities pitting edema. Neuro non focal /myoclonus Skin no rash Psych appropriate affect Objective Data Active Medications Acetaminophen (Acetaminophen 325 Mg Tablet) 650 mg PO Q6H PRN PRN Reason: Pain, Mild (Pain Scale 1-3), fever or headache Last Admin: 04/28/24 08:20 Dose: 650 mg Documented By: JANETT Atorvastatin Calcium (Atorvastatin Calcium 80 Mg Tablet) 80 mg PO DAILY [facility] Last Admin: 04/28/24 08:18 Dose: 80 mg Documented By: JANETT Calcium Carbonate (Calcium Carbonate 750 Mg Tab.Chew) 750 mg PO Q4H PRN PRN Reason: Heartburn Last Admin: 04/27/24 16:03 Dose: 750 mg Documented By: IKE Glucose (Glucose Gel 15 Gm Gel..Gram.) 15 gm PO Q15M PRN; Protocol PRN Reason: per Hypoglycemia Standing Ord. Heparin Sodium (Porcine) (Heparin Sodium,Porcine 5,000 Unit/Ml Vial) 5,000 unit SUBCUT Q12H [facility] Last Admin: 04/28/24 04:54 Dose: 5,000 unit Documented By: CHANNING Heparin Sodium (Porcine) (Heparin Sodium,Porcine 5,000 Unit/Ml Vial) 5,000 unit INTRACATH MOWEFR@1645 [facility] Heparin Sodium (Porcine) (Heparin Sodium,Porcine 5,000 Unit/Ml Vial) 5,000 unit INTRACATH MOWEFR@1645 [facility] Heparin Sodium (Porcine) (Heparin Sodium,Porcine 5,000 Unit/Ml Vial) 5,000 unit INTRACATH MOWEFR@1645 [facility] Dextrose (D10) 250 mls @ 750 mls/hr IV Q15M PRN; Protocol PRN Reason: per Hypoglycemia Standing Ord. Insulin Human Lispro (Insulin Lispro 100 Unit/Ml 3 Ml Vial) 0 unit SUBCUT QIDACHS [facility]; Protocol Last Admin: 04/28/24 12:20 Dose: 2 unit Documented By: JANETT Isosorbide Mononitrate (Isosorbide Mononitrate 30 Mg Tab.Er.24h) 30 mg PO DAILY [facility]; Protocol Last Admin: 04/28/24 08:17 Dose: 30 mg Documented By: JANETT Magnesium Hydroxide (Milk Of Magnesia 30 Ml Oral.Susp) 30 ml PO DAILY PRN PRN Reason: Constipation Melatonin (Melatonin 3 Mg Tablet) 6 mg PO BEDTIME PRN PRN Reason: Insomnia Last Admin: 04/26/24 20:53 Dose: 6 mg Documented By: LIONEL Montelukast Sodium (Montelukast Sodium 10 Mg Tablet) 10 mg PO DAILY [facility] Last Admin: 04/28/24 08:18 Dose: 10 mg Documented By: JANETT Nitroglycerin (Nitroglycerin 0.4 Mg Tab.Subl) 0.4 mg SUBLINGUAL Q5MX3 PRN PRN Reason: Chest Pain Ondansetron HCl (Ondansetron Hcl 4 Mg/2 Ml Vial) 4 mg IVPUSH Q8H PRN PRN Reason: Nausea and Vomiting Sodium Chloride (0.9 % Sodium Chloride Flush 3 Ml Syringe) [facility] Last Admin: 04/28/24 08:17 Dose: 3 ml Documented By: JANETT Labs 04/28/24 06:21 04/28/24 06:21 Labs: Laboratory Results - last 24 hr 04/27/24 04/27/24 04/27/24 16:45 19:55 23:48 MCV MCH MCHC RDW Plt Count MPV Absolute Nucleated RBC Nucleated RBC % (auto) Anion Gap Estim Creat Clear Calc Estimated GFR POC Glucose 217 H 205 H Random Glucose Calcium Total Bilirubin Direct Bilirubin GGT AST ALT Alkaline Phosphatase Troponin I High Sens 390.3 H* D Total Protein Albumin Hep Bs Antigen Hep Bs Antibody Hep B Core Total Ab Hepatitis C Ab (EIA) 04/28/24 04/28/24 04/28/24 06:21 07:05 11:24 MCV 79.9 L MCH 24.8 L MCHC 31.1 RDW 18.2 H Plt Count 166 MPV 9.2 L Absolute Nucleated RBC 0.000 Nucleated RBC % (auto) 0.0 Anion Gap 21 H Estim Creat Clear Calc 8.9 Estimated GFR 10 POC Glucose 155 H 170 H Random Glucose 146 H Calcium 9.2 Total Bilirubin 5.0 H Direct Bilirubin 4.0 H GGT 207 H AST 85 H ALT 108 H Alkaline Phosphatase 527 H Troponin I High Sens Total Protein 5.8 L Albumin 3.0 L Hep Bs Antigen Negative Hep Bs Antibody NONREACTIVE Hep B Core Total Ab Nonreactive Hepatitis C Ab (EIA) Nonreactive Microbiology Microbiology Results: Microbiology 04/23/24 10:45 Blood Culture - Final Blood - Venous No growth after 5 days. 04/26/24 22:06 Blood Culture - Preliminary Blood - Venous No growth after 24 hours. 04/26/24 22:06 Blood Culture - Preliminary Blood - Venous No growth after 24 hours. Assessment and Plan (1) Elevated LFTs: Status: Acute (2) KAILEY (acute kidney injury): Status: Acute (3) CKD (chronic kidney disease) stage 4, GFR 15-29 ml/min: Status: Acute Plan 83 year old man presenting with CHF and Pneumonia Acute hypoxic respiratory failure secondary to acute exacerbation of heart failure with reduced ejection fraction appears short of breath Diuretics held due to worsening renal function since noted to have worsening shortness of breath will undergo urgent hemodialysis today, will hold diuretics BNP [id number], on admission improved to 3601 Echocardiogram showed EF of 15-20% with severe global hypokinesis, abnormal diastolic function, bioprosthetic aortic valve functioning abnormally Continue O2 support KAILEY on ckd 4 Worsening renal function , creatinine bumped from 4.6 to 5.75 despite discontinuation of diuretics Renal ultrasound showed no obstruction Patient noted to have symptoms suggestive of uremia with nausea, decreased appetite and myoclonus Patient agreed for hemodialysis case discussed with Dr. Campbell patient will undergo hemodialysis catheter placement and urgent dialysis today. Recurrent Fever no source of infection found, initially felt to have pneumonia, chest x-ray showed no infiltrates, UA negative, respiratory viral panel negative, abdominal CT scan showed cardiomegaly/splenomegaly, BPH, no source of infection Or elevated bili noted. Lactic acid 1.6, WBC 12.2 on admission worsened to 16.3, no skin rash , initial blood cultures 04/23 neg-, repeat blood cultures negative times 24 hours Receive doxycycline but since no source of infection noted was discontinued on Apr 26 Worsening total bili, direct bili and alk-phos CT abdomen showed no acute abnormality, abdominal ultrasound showed thickening of gallbladder wall, no pericholecystic fluid, multiple gallbladder polyps largest 0.5 cm Consulted GI they recommend HIDA scan but since patient going for hemodialysis that can not be done today Will follow LFTs at a.m. if noted to have worsening LFTs will obtain HIDA scan in the morning Follow CBC/liver enzymes ID consult pending Elevated total and direct bili/alk-phos No significant elevation of liver enzymes, question due to worsening renal function/passive congestion No abdominal pain CT abdomen and abdominal ultrasound as above follow LFTs obtain HIDA scan with worsening Elevated troponin Peaked at 179.5 Secondary to acute congestive heart failure No ischemic changes noted on EKG Being followed by Cardiology, no intervention planned. Acute hyperkalemia resolved Diabetes mellitus type 2 Stable blood sugars, continue Sliding scale, ADA diet Hypertension Soft blood pressures hydralazine , beta-blockers and diuretics discontinued Nephrology recommend to discontinue Isordil COPD/asthma No exacerbation, Albuterol as needed Diabetic neuropathy gabapentin, discontinued, likely cause of tremors twitching and fever noted on admission. DVT prophylaxis with heparin subq Full code In my clinical judgment patient requires continued inpatient hospitalization for treatment of KAILEY/CHF/recurrent fevers with no source of infection requiring urgent hemodialysis and close clinical monitoring. Quality Stroke Does the patient have a stroke diagnosis?: No VTE Prior VTE?: No VTE Risk Level:: Medical - moderate - high VTE Device Contraindication: Treatment Not Indicated VTE Drug Contraindication: N/A - Med Ordered
[2024-04-28 16:00] VITALS: BP 109/56; PULSE 90; RESP 18; TEMP 36.3; O2SAT 92
[2024-04-28 18:59] LABS: Glucose, Whole Blood 138 mg/dL (60-115)
[2024-04-28 19:45] VITALS: BP 104/87; PULSE 108; RESP 16; TEMP 36.6; O2SAT 97
[2024-04-28 20:55] LABS: Glucose, Whole Blood 140 mg/dL (60-115)
--- NOTE | 2024-04-28 22:25 | P.CNID_ITS ---
History of Present Illness Data of Consult Service Date: 04/28/24 Requesting physician: Yamil Houston Primary Care Provider: Antony Pappas MD HPI Reason for consult: fever of unknown origin He presents with confusion and lethargy. He has temperature 04/26 to 102.8 and 100.7 on 04/27. He is afebrile today. He was admitted on 04/23 with CHF,AVR/ He has elevated LFTs. Review of Systems 2 Review of Systems: Yes all other systems are reviewed and are negative PMFSH Past Medical History Medical History KAILEY (acute kidney injury) Pneumonia CKD (chronic kidney disease) stage 3, GFR 30-59 ml/min Type 2 diabetes mellitus CHF (congestive heart failure) Hypertension Diabetes Asthma COPD (chronic obstructive pulmonary disease) CHF (congestive heart failure) Family History Family history: reviewed and not pertinent Social History Social History Household Members: Family Housing: House Do you presently have visiting nurse or other home services: No Alcohol intake: never Comment: refusing alarms Patient Tobacco Use Status: Former Tobacco user Smoked in Last 30 Days: No Second Hand Smoke Exposure: No Use of substances other than those prescribed or required for medical reasons: No Currently Displaying Signs/Symptoms of Drug Intoxication Withdrawal: No Have you been hit, kicked, punched, or otherwise hurt by someone within the past year? If so, by whom?: No Do you feel safe in your current relationship?: Yes Is there a partner from a previous relationship who is making you feel unsafe now?: No Are you made to feel afraid or neglected: No Advance Directives: Yes Advance Directives Information Provided: Yes Advance Directives on File: No Advance Directives Date on File: 03/13/22 Do you have a plan to hurt others: No Plan Recently lost weight without trying: Unsure Nutrition Risks: Poor intake 0-25% >4 days service: No Current occupational status: retired Meds Allergies Allergy/AdvReac Type Severity Reaction Status Date / Time No Known Allergies Allergy Verified 04/23/24 10:23 Active Medications: Current Medications Acetaminophen (Acetaminophen 325 Mg Tablet) 650 mg PO Q6H PRN PRN Reason: Pain, Mild (Pain Scale 1-3), fever or headache Last Admin: 04/28/24 08:20 Dose: 650 mg Atorvastatin Calcium (Atorvastatin Calcium 80 Mg Tablet) 80 mg PO DAILY [facility] Last Admin: 04/28/24 08:18 Dose: 80 mg Calcium Carbonate (Calcium Carbonate 750 Mg Tab.Chew) 750 mg PO Q4H PRN PRN Reason: Heartburn Last Admin: 04/27/24 16:03 Dose: 750 mg Glucose (Glucose Gel 15 Gm Gel..Gram.) 15 gm PO Q15M PRN; Protocol PRN Reason: per Hypoglycemia Standing Ord. Heparin Sodium (Porcine) (Heparin Sodium,Porcine 5,000 Unit/Ml Vial) 5,000 unit SUBCUT Q12H [facility] Last Admin: 04/28/24 18:58 Dose: 5,000 unit Heparin Sodium (Porcine) (Heparin Sodium,Porcine 5,000 Unit/Ml Vial) 5,000 unit INTRACATH MOWEFR@1645 [facility] Last Admin: 04/28/24 19:01 Dose: Not Given Heparin Sodium (Porcine) (Heparin Sodium,Porcine 5,000 Unit/Ml Vial) 5,000 unit INTRACATH MOWEFR@1645 [facility] Last Admin: 04/28/24 19:01 Dose: Not Given Heparin Sodium (Porcine) (Heparin Sodium,Porcine 5,000 Unit/Ml Vial) 5,000 unit INTRACATH MOWEFR@1645 [facility] Last Admin: 04/28/24 19:01 Dose: Not Given Dextrose (D10) 250 mls @ 750 mls/hr IV Q15M PRN; Protocol PRN Reason: per Hypoglycemia Standing Ord. Insulin Human Lispro (Insulin Lispro 100 Unit/Ml 3 Ml Vial) 0 unit SUBCUT QIDACHS [facility]; Protocol Last Admin: 04/28/24 21:45 Dose: Not Given Isosorbide Mononitrate (Isosorbide Mononitrate 30 Mg Tab.Er.24h) 30 mg PO DAILY [facility]; Protocol Last Admin: 04/28/24 08:17 Dose: 30 mg Magnesium Hydroxide (Milk Of Magnesia 30 Ml Oral.Susp) 30 ml PO DAILY PRN PRN Reason: Constipation Melatonin (Melatonin 3 Mg Tablet) 6 mg PO BEDTIME PRN PRN Reason: Insomnia Last Admin: 04/26/24 20:53 Dose: 6 mg Montelukast Sodium (Montelukast Sodium 10 Mg Tablet) 10 mg PO DAILY [facility] Last Admin: 04/28/24 08:18 Dose: 10 mg Nitroglycerin (Nitroglycerin 0.4 Mg Tab.Subl) 0.4 mg SUBLINGUAL Q5MX3 PRN PRN Reason: Chest Pain Ondansetron HCl (Ondansetron Hcl 4 Mg/2 Ml Vial) 4 mg IVPUSH Q8H PRN PRN Reason: Nausea and Vomiting Sodium Chloride (0.9 % Sodium Chloride Flush 3 Ml Syringe) 3 ml IVFLUSH QSHIFT [facility] Last Admin: 04/28/24 18:59 Dose: 3 ml Home Medications ?Medication ?Instructions ?Recorded ?Confirmed ?Last Taken ?Type albuterol sulfate 90 mcg/actuation 2 puff PO Q6H PRN wheezing 03/11/22 04/23/24 04/05/24 08:00 History aerosol inhaler aspirin 81 mg tablet,delayed 81 mg PO DAILY 03/11/22 04/23/24 04/05/24 08:00 History release atorvastatin 80 mg tablet 1 tab PO DAILY 03/11/22 04/23/24 04/05/24 08:00 History gabapentin 300 mg capsule 1 cap PO BEDTIME 03/11/22 04/23/24 04/04/24 History montelukast 10 mg tablet 1 tab PO DAILY 03/11/22 04/23/24 04/05/24 08:00 History glipizide 10 mg tablet 10 mg PO BID 07/31/23 04/23/24 04/05/24 08:00 History insulin degludec 200 unit/mL (3 65 unit subcut DAILY 07/31/23 04/23/24 04/05/24 08:00 History mL) subcutaneous pen (Tresiba FlexTouch U-200 insulin) fluticasone fur. 200 mcg-umeclid 1 ea inhalation DAILY 04/05/24 04/23/24 04/05/24 History 62.5 mcg-vilant 25 mcg inhalat.powder (Trelegy Ellipta) dapagliflozin propanediol 10 mg 10 mg PO DAILY 04/23/24 04/23/24 Unknown History tablet (Farxiga) Vitamin D2 1 mg PO QWEEK 04/24/24 04/24/24 04/17/24 History Physical Exam 2 Vital Signs: Vital Signs: Last Vital Signs Temp 98 F 04/28/24 19:45 Pulse 108 H 04/28/24 19:45 Resp 16 04/28/24 19:45 BP 104/87 04/28/24 19:45 Pulse Ox 97 04/28/24 19:45 O2 Del Method Room Air 04/28/24 19:45 O2 Flow Rate 2 04/28/24 07:44 BMI result Body Mass Index 19.8 Const: General: cooperative HEENT: Head: Yes normal to inspection Face and sinus: Yes normal facial exam Mouth: Normal oral and palatal mucosa present Teeth and gingiva: d entition normal Eyes: General: appearance normal, both eyes and all related structures P upils: Equal, round and reactive pupils present Resp: Effort & Inspection: normal respiratory effort Cardio: Rate: regular rate Rhythm: regular rhythm GI: Palpation (GI): Soft to palpation and nontender : General: Yes no CVA tenderness Back/Spine/Pelvis: Back: no CVA tenderness Skin: General skin exam: no rashes or lesions noted Neuro: General: moves all extremities Cranial nerves: Yes Equal, round and reactive pupils present Extrem: General: Yes normal to inspection Psych: Other: confusion Appearance: grossly normal Results Labs 04/28/24 06:21 04/28/24 06:21 Labs: Short CBC 04/28/24 Range/Units 06:21 WBC 16.3 H (4.8-10.8) X10*3/uL Hgb 10.6 L (14.0-18.0) g/dl Hct 34.1 L (42.0-52.0) % Plt Count 166 (160-400) X10*3/uL BMP 04/28/24 06:21 Sodium 140 Potassium 4.1 Chloride 107 Carbon Dioxide 16 L BUN 105 H Creatinine 5.75 H* Calcium 9.2 Liver Function 04/28/24 Range/Units 06:21 Total Bilirubin 5.0 H (0.0-1.0) mg/dL Direct Bilirubin 4.0 H (0.0-0.5) mg/dL GGT 207 H (11-51) U/L AST 85 H (5-37) U/L ALT 108 H (0-40) U/L Alkaline Phosphatase 527 H (39-117) U/L Albumin 3.0 L (3.5-5.0) g/dL Microbiology Microbiology Results: Microbiology 04/23/24 10:53 Blood - Venous Blood Culture - Final No growth after 5 days. 04/23/24 10:45 Blood - Venous Blood Culture - Final No growth after 5 days. 04/26/24 22:06 Blood - Venous Blood Culture - Preliminary No growth after 24 hours. 04/26/24 22:06 Blood - Venous Blood Culture - Preliminary No growth after 24 hours. Assessment and Plan (1) Elevated LFTs: Status: Acute (2) KAILEY (acute kidney injury): Status: Acute (3) CKD (chronic kidney disease) stage 4, GFR 15-29 ml/min: Status: Acute (4) Altered mental status: Status: Acute Plan He has hepatitis and fever from that. THis could be due to viral syndrome ,cholecystitis. Would check Hepatitis C Hida scan in am if LFTs elevated and if suspicious for cholecystitis add piperacillin/tazobactam and consult Surgery.
[2024-04-29] VITALS (11 sets, daily range): BP systolic 93–121; BP diastolic 50–63; PULSE 76–96; RESP 16–18; TEMP 36.2–37.3; O2SAT 93–96
[2024-04-29] MEDS: Nitroglycerin 0.4 MG TAB.SUBL SUBLINGUAL ×2 (03:21→03:54)
[2024-04-29] MEDS: Heparin Sodium,Porcine 5,000 UNIT/ML VIAL 5000 UNIT SUBCUT ×2 (03:23→18:02)
[2024-04-29] MEDS: Aspirin 325 MG TABLET PO (04:16)
[2024-04-29 06:21] LABS: Alanine Aminotransferase 86 U/L (0-40); Albumin Level 2.8 g/dL (3.5-5.0); Alkaline Phosphatase 453 U/L (39-117); Anion Gap 24 (12-20); Aspartate Amino Transferase 60 U/L (5-37); Bilirubin Direct 3.2 mg/dL (0.0-0.5); Bilirubin Total 4.2 mg/dL (0.0-1.0); Blood Urea Nitrogen 87 mg/dL (9-16); Calcium 8.6 mg/dL (8.4-10.2); Carbon Dioxide 14 mmol/L (22-29); Chloride 105 mmol/L (96-108); Creatinine Clr Calc Pharmacy 9.3; Estimated Glomerular Filt Rate 10; Glucose Random 178 mg/dL (60-115); Potassium 4.2 mmol/L (3.3-5.1); Sodium 139 mmol/L (135-145); Total Protein 5.5 g/dL (6.5-8.0)
[2024-04-29 07:08] LABS: Glucose, Whole Blood 166 mg/dL (60-115)
[2024-04-29] MEDS: Isosorbide Mononitrate 30 MG TAB.ER.24H PO (07:48)
[2024-04-29] MEDS: Montelukast Sodium 10 MG TABLET PO (07:48)
[2024-04-29] MEDS: Atorvastatin Calcium 80 MG TABLET PO (07:48)
[2024-04-29] MEDS: Insulin Lispro 100 UNIT/ML 3 ML VIAL SUBCUT ×2 (07:48→20:54)
[2024-04-29] MEDS: 0.9 % Sodium Chloride Flush 3 ML SYRINGE IVFLUSH ×3 (07:49→20:55)
[2024-04-29 09:11] LABS: Beta-Hydroxybutyrate 3.18 mmol/L (0.02-0.27)
[2024-04-29 11:35] LABS: Glucose, Whole Blood 115 mg/dL (60-115)
--- NOTE | 2024-04-29 12:15 | P.PNIM_ITS ---
Subjective Subjective Date of Service: 04/29/24 Interval History: Being followed for KAILEY on chronic kidney disease, fever ,confusion and elevated LFTs. Overall better, no confusion Physical Exam 2 Vital Signs: Vital Signs: Last Vital Signs Temp 99.2 F 04/29/24 11:33 Pulse 88 04/29/24 11:33 Resp 18 04/29/24 11:33 BP 121/57 L 04/29/24 11:33 Pulse Ox 94 04/29/24 11:33 O2 Del Method Room Air 04/29/24 11:33 O2 Flow Rate 2 04/28/24 07:44 BMI result Body Mass Index 19.8 Const: Other: General awake alert appears short of breath with bilateral upper extremity twitching. Neck no JVD. CVS regular rate rhythm, Respiratory lungs few bibasilar crackles Gastrointestinal abdomen soft, no RUQ tenderness to palpation, non tender, bowel sounds audible. Extremities pitting edema. Neuro non focal /myoclonus Skin no rash Psych appropriate affect Objective Data Active Medications Acetaminophen (Acetaminophen 325 Mg Tablet) 650 mg PO Q6H PRN PRN Reason: Pain, Mild (Pain Scale 1-3), fever or headache Last Admin: 04/28/24 08:20 Dose: 650 mg Documented By: JANETT Aspirin (Aspirin 81 Mg Tab.Chew) 81 mg PO DAILY [facility] Atorvastatin Calcium (Atorvastatin Calcium 80 Mg Tablet) 80 mg PO DAILY [facility] Last Admin: 04/29/24 07:48 Dose: 80 mg Documented By: TANVIR Calcium Carbonate (Calcium Carbonate 750 Mg Tab.Chew) 750 mg PO Q4H PRN PRN Reason: Heartburn Last Admin: 04/27/24 16:03 Dose: 750 mg Documented By: IKE Glucose (Glucose Gel 15 Gm Gel..Gram.) 15 gm PO Q15M PRN; Protocol PRN Reason: per Hypoglycemia Standing Ord. 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 Heparin Sodium (Porcine) (Heparin Sodium,Porcine 5,000 Unit/Ml Vial) 5,000 unit INTRACATH MOWEFR@1645 [facility] Last Admin: 04/28/24 19:01 Dose: Not Given Documented By: JANETT Non-Admin Reason: not given per dialysis nurse Heparin Sodium (Porcine) (Heparin Sodium,Porcine 5,000 Unit/Ml Vial) 5,000 unit INTRACATH MOWEFR@1645 [facility] Last Admin: 04/28/24 19:01 Dose: Not Given Documented By: JANETT Non-Admin Reason: per dialysis nurse Dextrose (D10) 250 mls @ 750 mls/hr IV Q15M PRN; Protocol PRN Reason: per Hypoglycemia Standing Ord. Insulin Human Lispro (Insulin Lispro 100 Unit/Ml 3 Ml Vial) 0 unit SUBCUT QIDACHS [facility]; Protocol Last Admin: 04/29/24 07:48 Dose: 2 unit Documented By: TANVIR Isosorbide Mononitrate (Isosorbide Mononitrate 30 Mg Tab.Er.24h) 30 mg PO DAILY [facility]; Protocol Last Admin: 04/29/24 07:48 Dose: 30 mg Documented By: TANVIR Magnesium Hydroxide (Milk Of Magnesia 30 Ml Oral.Susp) 30 ml PO DAILY PRN PRN Reason: Constipation Melatonin (Melatonin 3 Mg Tablet) 6 mg PO BEDTIME PRN PRN Reason: Insomnia Last Admin: 04/26/24 20:53 Dose: 6 mg Documented By: LIONEL Montelukast Sodium (Montelukast Sodium 10 Mg Tablet) 10 mg PO DAILY [facility] Last Admin: 04/29/24 07:48 Dose: 10 mg Documented By: TANVIR Nitroglycerin (Nitroglycerin 0.4 Mg Tab.Subl) 0.4 mg SUBLINGUAL Q5MX3 PRN PRN Reason: Chest Pain Last Admin: 04/29/24 03:54 Dose: 0.4 tab Documented By: CHRISTINA Ondansetron HCl (Ondansetron Hcl 4 Mg/2 Ml Vial) 4 mg IVPUSH Q8H PRN PRN Reason: Nausea and Vomiting Sodium Chloride (0.9 % Sodium Chloride Flush 3 Ml Syringe) 3 ml IVFLUSH QSHIFT [facility] Last Admin: 04/29/24 07:49 Dose: 3 ml Documented By: TANVIR Labs 04/28/24 06:21 04/29/24 05:37 Labs: Laboratory Results - last 24 hr 04/28/24 04/28/24 04/29/24 18:55 20:48 05:37 Anion Gap 24 H Estim Creat Clear Calc 9.3 Estimated GFR 10 POC Glucose 138 H 140 H Random Glucose 178 H Calcium 8.6 D Total Bilirubin 4.2 H Direct Bilirubin 3.2 H AST 60 H ALT 86 H Alkaline Phosphatase 453 H Total Protein 5.5 L Albumin 2.8 L Beta-Hydroxybutyrate 3.18 H 04/29/24 04/29/24 07:02 11:32 Anion Gap Estim Creat Clear Calc Estimated GFR POC Glucose 166 H 115 Random Glucose Calcium Total Bilirubin Direct Bilirubin AST ALT Alkaline Phosphatase Total Protein Albumin Beta-Hydroxybutyrate Microbiology Microbiology Results: Microbiology 04/26/24 22:06 Blood Culture - Preliminary Blood - Venous No growth after 48 hours. 04/26/24 22:06 Blood Culture - Preliminary Blood - Venous No growth after 48 hours. 04/23/24 10:53 Blood Culture - Final Blood - Venous No growth after 5 days. 04/23/24 10:45 Blood Culture - Final Blood - Venous No growth after 5 days. Assessment and Plan (1) Elevated LFTs: Status: Acute (2) KAILEY (acute kidney injury): Status: Acute (3) CKD (chronic kidney disease) stage 4, GFR 15-29 ml/min: Status: Acute Plan 83/m with ckd 4, dm, htn, diabetes with Neuropathy presented with SOB and found to have exacerbation of chf and PNA, resulting in acute hypoxic resp failure Acute hypoxic respiratory failure d/t hfref EF 15 to 20, sob is better -BNP 12K -diuretics ineffective -started on dialysis 04/28, another session today KAILEY CKD now CKD5 -started on dialysis as above Metabolic acidosis d/t renal failure and ? dka -discuss bicab replacement with Nephro Recurrent Fever no source of infection found, initially felt to have pneumonia, chest x-ray showed no infiltrates, UA negative, respiratory viral panel negative, abdominal CT scan showed cardiomegaly/splenomegaly, BPH, no source of infection Or elevated bili noted. Lactic acid 1.6, WBC 12.2 on admission worsened to 16.3, no skin rash , initial blood cultures 04/23 neg-, repeat blood cultures negative times 24 hours Receive doxycycline but since no source of infection noted was discontinued on Apr 2 Worsening total bili, direct bili and alk-phos CT abdomen showed no acute abnormality, abdominal ultrasound showed thickening of gallbladder wall, no pericholecystic fluid, multiple gallbladder polyps largest 0.5 cm Consulted GI they recommend HIDA if LFTs worsening, LFTs are better today Follow CBC/liver enzymes ID consult pending Elevated total and direct bili/alk-phos No significant elevation of liver enzymes, question due to worsening renal function/passive congestion No abdominal pain CT abdomen and abdominal ultrasound as above follow LFTs obtain HIDA scan with worsening Elevated troponin Peaked at 179.5 Secondary to acute congestive heart failure No ischemic changes noted on EKG Being followed by Cardiology, no intervention planned. Acute hyperkalemia resolved Metabolic acidosis with AGAP--probably due to combination of renal failure, Diabetes mellitus type 2 Stable blood sugars, continue Sliding scale, ADA diet Hypertension Soft blood pressures hydralazine , beta-blockers and diuretics discontinued Nephrology recommend to discontinue Isordil COPD/asthma No exacerbation, Albuterol as needed Diabetic neuropathy gabapentin, discontinued, likely cause of tremors twitching and fever noted on admission. DVT prophylaxis with heparin subq Full code In my clinical judgment patient requires continued inpatient hospitalization for treatment of KAILEY/CHF/recurrent fevers with no source of infection requiring urgent hemodialysis and close clinical monitoring. Quality Stroke Does the patient have a stroke diagnosis?: No VTE Prior VTE?: No VTE Risk Level:: Medical - moderate - high VTE Device Contraindication: Treatment Not Indicated VTE Drug Contraindication: N/A - Med Ordered
[2024-04-29 15:29] LABS: Hematocrit 33.7 % (42.0-52.0); Hemoglobin 10.8 g/dl (14.0-18.0); Platelet Count 158 X10*3/uL (160-400); Red Blood Count 4.32 X10*6/uL (4.60-5.80); Red Cell Distribution Width 18.6 % (11.0-16.0); White Blood Count 13.4 X10*3/uL (4.8-10.8)
[2024-04-29 15:41] LABS: Anion Gap 21 (12-20); Blood Urea Nitrogen 47 mg/dL (9-16); Calcium 8.5 mg/dL (8.4-10.2); Carbon Dioxide 19 mmol/L (22-29); Chloride 103 mmol/L (96-108); Creatinine Clr Calc Pharmacy 14.3; Estimated Glomerular Filt Rate 17; Glucose Random 136 mg/dL (60-115); Potassium 3.6 mmol/L (3.3-5.1); Sodium 139 mmol/L (135-145)
[2024-04-29 16:26] LABS: Glucose, Whole Blood 132 mg/dL (60-115)
[2024-04-29 20:36] LABS: Glucose, Whole Blood 244 mg/dL (60-115)
[2024-04-30 04:00] VITALS: BP 128/62; PULSE 82; RESP 18; TEMP 37.1; O2SAT 95
[2024-04-30] MEDS: Heparin Sodium,Porcine 5,000 UNIT/ML VIAL 5000 UNIT SUBCUT ×2 (04:04→17:18)
[2024-04-30 07:08] LABS: Glucose, Whole Blood 225 mg/dL (60-115)
[2024-04-30 07:29] VITALS: BP 127/62; PULSE 78; RESP 18; TEMP 36.7; O2SAT 95
[2024-04-30] MEDS: Isosorbide Mononitrate 30 MG TAB.ER.24H PO (07:33)
[2024-04-30] MEDS: Insulin Lispro 100 UNIT/ML 3 ML VIAL SUBCUT ×4 (07:33→20:33)
[2024-04-30] MEDS: Aspirin 81 MG TAB.CHEW PO (07:33)
[2024-04-30] MEDS: Montelukast Sodium 10 MG TABLET PO (07:33)
[2024-04-30] MEDS: Atorvastatin Calcium 80 MG TABLET PO (07:33)
[2024-04-30] MEDS: 0.9 % Sodium Chloride Flush 3 ML SYRINGE IVFLUSH ×3 (07:38→20:33)
[2024-04-30] MEDS: ondansetron HCL 4 MG/2 ML VIAL IVPUSH (09:42)
[2024-04-30 10:39] LABS: MANUAL DIFF FLAG NO
[2024-04-30 10:41] LABS: Basophils Percent Auto 0.3 % (0-2); Eosinophils Absolute Auto 1.1 X10*3/uL (0.0-0.4); Eosinophils Percent Auto 8.8 % (0-4); Hematocrit 35.4 % (42.0-52.0); Hemoglobin 11.3 g/dl (14.0-18.0); Imm Gran Abs Auto 0.13 X10*3/uL (0.00-0.03); Lymphocytes Absolute Auto 2.3 X10*3/uL (1.2-4.9); Lymphocytes Percent Auto 18.1 % (20-40); Mean Corpuscular HGB Conc 31.9 g/dl (31.0-36.0); Mean Corpuscular Hemoglobin 25.2 pg (27.0-33.0); Mean Corpuscular Volume 78.8 fL (80.0-98.0); Mean Platelet Volume 9.3 fL (9.4-12.4); Monocytes Absolute Auto 1.2 X10*3/uL (0.1-1.2); Monocytes Percent Auto 9.1 % (2-11); Neutrophils Absolute Auto 8.1 x10*3/uL (2.0-8.3); Neutrophils Percent Auto 62.7 % (45-73); Platelet Count 159 X10*3/uL (160-400); Red Blood Count 4.49 X10*6/uL (4.60-5.80); Red Cell Distribution Width 18.5 % (11.0-16.0); White Blood Count 12.9 X10*3/uL (4.8-10.8)
[2024-04-30 10:53] LABS: Glucose, Whole Blood 228 mg/dL (60-115)
[2024-04-30 11:09] VITALS: BP 109/63; PULSE 71; RESP 18; TEMP 36; O2SAT 95
[2024-04-30 11:10] LABS: Alanine Aminotransferase 107 U/L (0-40); Albumin Level 3.2 g/dL (3.5-5.0); Alkaline Phosphatase 654 U/L (39-117); Anion Gap 20 (12-20); Aspartate Amino Transferase 91 U/L (5-37); Bilirubin Total 2.7 mg/dL (0.0-1.0); Blood Urea Nitrogen 68 mg/dL (9-16); Calcium 8.6 mg/dL (8.4-10.2); Carbon Dioxide 17 mmol/L (22-29); Chloride 103 mmol/L (96-108); Glucose Random 246 mg/dL (60-115); Potassium 3.8 mmol/L (3.3-5.1); Sodium 136 mmol/L (135-145); Total Protein 6.3 g/dL (6.5-8.0)
[2024-04-30 11:11] LABS: Creatinine Clr Calc Pharmacy 9.8; Estimated Glomerular Filt Rate 11
--- NOTE | 2024-04-30 11:34 | PM.PNCARD ---
Subjective Subjective Date of Service: 04/30/24 Interval history: Seen examined at bedside. Status post hemodialysis and improving. Physical Exam Vital Signs: Last Vital Signs Temp 96.8 F 04/30/24 11:09 Pulse 71 04/30/24 11:09 Resp 18 04/30/24 11:09 BP 109/63 04/30/24 11:09 Pulse Ox 95 04/30/24 11:09 O2 Del Method Room Air 04/30/24 11:09 O2 Flow Rate 2 04/28/24 07:44 BMI result Body Mass Index 19.8 GENERAL APPEARANCE: Alert and oriented. No distress. NECK: no carotid bruit, + jugular venous distention. SKIN: no suspicious lesions, warm and dry. HEART: Ejection systolic murmur with preserved 2nd heart sound, regular rate and rhythm. LUNGS: Clear to auscultation. ABDOMEN: soft, nontender. EXTREMITIES: no edema. PERIPHERAL PULSES: equal. NEUROLOGIC: No gross deficits, AAO X 3 Objective Labs and Meds 04/30/24 10:17 04/30/24 10:17 Lab results: Laboratory Results - last 24 hr 04/29/24 04/29/24 04/29/24 11:32 14:54 16:21 WBC 13.4 H RBC 4.32 L Hgb 10.8 L Hct 33.7 L MCV 78.0 L MCH 25.0 L MCHC 32.0 RDW 18.6 H Plt Count 158 L MPV 9.0 L Immature Gran % (Auto) Neut % (Auto) Lymph % (Auto) [place] % (Auto) Eos % (Auto) Baso % (Auto) Lymph # (Auto) [place] # (Auto) Eos # (Auto) Baso # (Auto) Abs Immat Gran (auto) Absolute Neuts (auto) Absolute Nucleated RBC 0.000 Nucleated RBC % (auto) 0.0 Sodium 139 Potassium 3.6 Chloride 103 Carbon Dioxide 19 L Anion Gap 21 H BUN 47 H Creatinine 3.57 H Estim Creat Clear Calc 14.3 Estimated GFR 17 POC Glucose 115 132 H Random Glucose 136 H Calcium 8.5 Total Bilirubin AST ALT Alkaline Phosphatase C-Reactive Protein Total Protein Albumin 04/29/24 04/30/24 04/30/24 19:38 07:04 10:17 WBC 12.9 H RBC 4.49 L Hgb 11.3 L Hct 35.4 L MCV 78.8 L MCH 25.2 L MCHC 31.9 RDW 18.5 H Plt Count 159 L MPV 9.3 L Immature Gran % (Auto) 1.0 H Neut % (Auto) 62.7 Lymph % (Auto) 18.1 L [place] % (Auto) 9.1 Eos % (Auto) 8.8 H Baso % (Auto) 0.3 Lymph # (Auto) 2.3 [place] # (Auto) 1.2 Eos # (Auto) 1.1 H Baso # (Auto) 0.0 Abs Immat Gran (auto) 0.13 H Absolute Neuts (auto) 8.1 Absolute Nucleated RBC 0.000 Nucleated RBC % (auto) 0.0 Sodium 136 Potassium 3.8 Chloride 103 Carbon Dioxide 17 L Anion Gap 20 BUN 68 H Creatinine 5.18 H* Estim Creat Clear Calc 9.8 Estimated GFR 11 POC Glucose 244 H 225 H Random Glucose 246 H Calcium 8.6 Total Bilirubin 2.7 H AST 91 H ALT 107 H Alkaline Phosphatase 654 H C-Reactive Protein 8.50 H Total Protein 6.3 L Albumin 3.2 L 04/30/24 10:44 WBC RBC Hgb Hct MCV MCH MCHC RDW Plt Count MPV Immature Gran % (Auto) Neut % (Auto) Lymph % (Auto) [place] % (Auto) Eos % (Auto) Baso % (Auto) Lymph # (Auto) [place] # (Auto) Eos # (Auto) Baso # (Auto) Abs Immat Gran (auto) Absolute Neuts (auto) Absolute Nucleated RBC Nucleated RBC % (auto) Sodium Potassium Chloride Carbon Dioxide Anion Gap BUN Creatinine Estim Creat Clear Calc Estimated GFR POC Glucose 228 H Random Glucose Calcium Total Bilirubin AST ALT Alkaline Phosphatase C-Reactive Protein Total Protein Albumin Progress Note: A&P Assessment and plan (1) KAILEY (acute kidney injury): Status: Acute (2) Altered mental status: Status: Acute (3) Congestive heart failure: Status: Acute (4) CKD (chronic kidney disease) stage 4, GFR 15-29 ml/min: Status: Acute Plan Pleasant 83 year gentleman with known history of cardiomyopathy and previous bypass surgery and aortic valve replacement with bioprosthetic valve. He has advanced CKD. Recently admitted with congestive heart failure when he was diuresed and his medications were adjusted and he was started on hydralazine and nitrate combination because of advanced CKD and inability to use Arnulfo/ARB. He is now presenting with fever and some concern for infection. He had progressive worsening kidney function initially was refusing dialysis but agreed later on. He is now status post hemodialysis and clinically is improving. Not sure whether dialysis long-term or not and we will ask Nephrology input about that. In terms of his medications if his blood pressure stays stable I think he should resume hydralazine at some stage 25 mg 3 times a day. He has severe cardiomyopathy and moderate bioprosthetic aortic valve stenosis. We will follow along with you. Thank you for allowing me to participate in the care of your patient. Please feel free to contact me if you have any questions. Time Spent With Patient Time: Total time managing care of this patient today ____ minutes. Progress Note: Quality Stroke Does the patient have a stroke diagnosis?: No Procedures Date of Service Date of Service: 04/30/24
[2024-04-30 15:39] VITALS: BP 139/70; PULSE 80; RESP 18; TEMP 36.2; O2SAT 98
--- NOTE | 2024-04-30 16:22 | P.PNIM_ITS ---
Subjective Subjective Date of Service: 04/30/24 Interval History: feels well, no dyspnea urinating copiously Review of Systems Review of Systems: Yes all other systems are reviewed and are negative Physical Exam 2 Vital Signs: Vital Signs: Last Vital Signs Temp 97.2 F 04/30/24 15:39 Pulse 80 04/30/24 15:39 Resp 18 04/30/24 15:39 BP 139/70 04/30/24 15:39 Pulse Ox 98 04/30/24 15:39 O2 Del Method Room Air 04/30/24 15:39 O2 Flow Rate 2 04/28/24 07:44 BMI result Body Mass Index 19.8 Gen: in no acute distress HEENT: sclera anicteric, moist mucus membranes Neck: supple, RIJ dialysis catheter Lungs: clear to auscultation bilaterally Heart: regular rate and rhythm, 2/6 systolic murmur at base Abd: soft, non-tender, non-distended, no Stoddard sign Ext: no edema Skin: warm/well-perfused Neuro: alert and oriented x3, no focal findings Psych: appropriate affect Objective Data Active Medications Acetaminophen (Acetaminophen 325 Mg Tablet) 650 mg PO Q6H PRN PRN Reason: Pain, Mild (Pain Scale 1-3), fever or headache Last Admin: 04/28/24 08:20 Dose: 650 mg Documented By: JANETT Aspirin (Aspirin 81 Mg Tab.Chew) 81 mg PO DAILY [facility] Last Admin: 04/30/24 07:33 Dose: 81 mg Documented By: TANVIR Atorvastatin Calcium (Atorvastatin Calcium 80 Mg Tablet) 80 mg PO DAILY [facility] Last Admin: 04/30/24 07:33 Dose: 80 mg Documented By: TANVIR Calcium Carbonate (Calcium Carbonate 750 Mg Tab.Chew) 750 mg PO Q4H PRN PRN Reason: Heartburn Last Admin: 04/27/24 16:03 Dose: 750 mg Documented By: IKE Glucose (Glucose Gel 15 Gm Gel..Gram.) 15 gm PO Q15M PRN; Protocol PRN Reason: per Hypoglycemia Standing Ord. 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 Heparin Sodium (Porcine) (Heparin Sodium,Porcine 5,000 Unit/Ml Vial) 5,000 unit INTRACATH MOWEFR@1645 [facility] Last Admin: 04/28/24 19:01 Dose: Not Given Documented By: JANETT Non-Admin Reason: not given per dialysis nurse Heparin Sodium (Porcine) (Heparin Sodium,Porcine 5,000 Unit/Ml Vial) 5,000 unit INTRACATH MOWEFR@1645 [facility] Last Admin: 04/28/24 19:01 Dose: Not Given Documented By: JANETT Non-Admin Reason: per dialysis nurse Dextrose (D10) 250 mls @ 750 mls/hr IV Q15M PRN; Protocol PRN Reason: per Hypoglycemia Standing Ord. Insulin Human Lispro (Insulin Lispro 100 Unit/Ml 3 Ml Vial) 0 unit SUBCUT QIDACHS [facility]; Protocol Last Admin: 04/30/24 11:51 Dose: 4 unit Documented By: TANVIR Isosorbide Mononitrate (Isosorbide Mononitrate 30 Mg Tab.Er.24h) 30 mg PO DAILY [facility]; Protocol Last Admin: 04/30/24 07:33 Dose: 30 mg Documented By: TANVIR Magnesium Hydroxide (Milk Of Magnesia 30 Ml Oral.Susp) 30 ml PO DAILY PRN PRN Reason: Constipation Melatonin (Melatonin 3 Mg Tablet) 6 mg PO BEDTIME PRN PRN Reason: Insomnia Last Admin: 04/26/24 20:53 Dose: 6 mg Documented By: LIONEL Montelukast Sodium (Montelukast Sodium 10 Mg Tablet) 10 mg PO DAILY [facility] Last Admin: 04/30/24 07:33 Dose: 10 mg Documented By: TANVIR Nitroglycerin (Nitroglycerin 0.4 Mg Tab.Subl) 0.4 mg SUBLINGUAL Q5MX3 PRN PRN Reason: Chest Pain Last Admin: 04/29/24 03:54 Dose: 0.4 tab Documented By: CHRISTINA Ondansetron HCl (Ondansetron Hcl 4 Mg/2 Ml Vial) 4 mg IVPUSH Q8H PRN PRN Reason: Nausea and Vomiting Last Admin: 04/30/24 09:42 Dose: 4 mg Documented By: TANVIR Sodium Chloride (0.9 % Sodium Chloride Flush 3 Ml Syringe) 3 ml IVFLUSH QSHIFT [facility] Last Admin: 04/30/24 15:40 Dose: 3 ml Documented By: TANVIR Labs 04/30/24 10:17 04/30/24 10:17 Labs: Laboratory Results - last 24 hr 04/29/24 04/29/24 04/30/24 16:21 19:38 07:04 MCV MCH MCHC RDW Plt Count MPV Immature Gran % (Auto) Neut % (Auto) Lymph % (Auto) [place] % (Auto) Eos % (Auto) Baso % (Auto) Lymph # (Auto) [place] # (Auto) Eos # (Auto) Baso # (Auto) Abs Immat Gran (auto) Absolute Neuts (auto) Absolute Nucleated RBC Nucleated RBC % (auto) Anion Gap Estim Creat Clear Calc Estimated GFR POC Glucose 132 H 244 H 225 H Random Glucose Calcium Total Bilirubin AST ALT Alkaline Phosphatase C-Reactive Protein Total Protein Albumin 04/30/24 04/30/24 10:17 10:44 MCV 78.8 L MCH 25.2 L MCHC 31.9 RDW 18.5 H Plt Count 159 L MPV 9.3 L Immature Gran % (Auto) 1.0 H Neut % (Auto) 62.7 Lymph % (Auto) 18.1 L [place] % (Auto) 9.1 Eos % (Auto) 8.8 H Baso % (Auto) 0.3 Lymph # (Auto) 2.3 [place] # (Auto) 1.2 Eos # (Auto) 1.1 H Baso # (Auto) 0.0 Abs Immat Gran (auto) 0.13 H Absolute Neuts (auto) 8.1 Absolute Nucleated RBC 0.000 Nucleated RBC % (auto) 0.0 Anion Gap 20 Estim Creat Clear Calc 9.8 Estimated GFR 11 POC Glucose 228 H Random Glucose 246 H Calcium 8.6 Total Bilirubin 2.7 H AST 91 H ALT 107 H Alkaline Phosphatase 654 H C-Reactive Protein 8.50 H Total Protein 6.3 L Albumin 3.2 L Assessment and Plan (1) Elevated LFTs: Status: Acute (2) KAILEY (acute kidney injury): Status: Acute (3) CKD (chronic kidney disease) stage 4, GFR 15-29 ml/min: Status: Acute Plan d8 83yo M with CAD s/p CABG, bioprosthetic aortic valve, CKD4, DM2, HTN, DM presenting with dyspnea, admitted for hypoxia due to CHF exacerbation + PNA KAILEY/CKD4 metabolic acidosis - dialyzed 04/28 and 04/29 and plan again 05/01, Nephrology following, discuss biacrbonate replacement AHRF due to acute-chronic HFrEF - dialyzed as above - TTE 04/25/24: - Normal left ventricular cavity size. There is moderately increased left ventricular wall thickness. The left ventricular systolic function is severely decreased. The visually estimated ejection fraction is between 15-20%. - Elevated filling pressures. - Mildly increased right ventricular cavity size. There is moderately decreased right ventricular systolic function. - The left atrium is severely dilated. - There is moderate calcification of the aortic valve. There is moderate aortic valve stenosis. - Moderately elevated right atrial pressure. Moderate pulmonary hypertension is present. - There is mild dilatation of the ascending aorta measuring 4.10 cm. recurrent fever - initially felt to have pneumonia but no infiltrate on CXR. UA negative, RPP negative, abd CT with cardiomegaly, splenomegaly, BPH. BCx negative. Abd US with thickened gallbladder wall. Will check HIDA scan per GI consultation. Monitor LFTs- Tbili coming down. ID consulted as well. No fever since 04/27/24 @346. Suspect LFT elevations are due to hepatic congestion. Could have been drug fever from gabapentin which has been discontinued tremors - likely gabapentin excess; discontinued and tremors resolved troponin elevation - due to CHF; no ischemic EKG changes; no cardiac intervention planned hyperK, mild - resolved HTN - hydralazine + metoprolol succinate on hold; continue Imdur CAD - atorvastatin DM2 - hernandez-dose lispro COPD/asthma without acute exacerbation - prn albuterol VTE ppx - UFH dispo - TBD In my clinical judgment, the patient requires continued inpatient hospitalization for the following reasons: KAILEY requiring HD Total time managing care of this patient today: 45 minutes. Quality Stroke Does the patient have a stroke diagnosis?: No VTE Prior VTE?: No VTE Risk Level:: Medical - moderate - high VTE Device Contraindication: Treatment Not Indicated VTE Drug Contraindication: N/A - Med Ordered
[2024-04-30 17:04] LABS: Glucose, Whole Blood 343 mg/dL (60-115)
[2024-04-30 19:48] VITALS: BP 127/63; PULSE 82; RESP 20; TEMP 35.8; O2SAT 93
[2024-04-30 20:33] LABS: Glucose, Whole Blood 263 mg/dL (60-115)
[2024-05-01] VITALS (8 sets, daily range): BP systolic 102–134; BP diastolic 51–70; PULSE 70–84; RESP 20–22; TEMP 36–36.6; O2SAT 92–95
[2024-05-01] MEDS: Heparin Sodium,Porcine 5,000 UNIT/ML VIAL 5000 UNIT SUBCUT (04:00)
[2024-05-01 07:14] LABS: Hematocrit 36.1 % (42.0-52.0); Hemoglobin 11.5 g/dl (14.0-18.0); Mean Corpuscular HGB Conc 31.9 g/dl (31.0-36.0); Mean Corpuscular Hemoglobin 25.4 pg (27.0-33.0); Mean Corpuscular Volume 79.7 fL (80.0-98.0); Mean Platelet Volume 9.2 fL (9.4-12.4); Platelet Count 159 X10*3/uL (160-400); Red Blood Count 4.53 X10*6/uL (4.60-5.80); Red Cell Distribution Width 18.6 % (11.0-16.0); White Blood Count 10.4 X10*3/uL (4.8-10.8)
[2024-05-01 07:19] LABS: Glucose, Whole Blood 190 mg/dL (60-115)
[2024-05-01 07:33] LABS: Alanine Aminotransferase 91 U/L (0-40); Alkaline Phosphatase 568 U/L (39-117); Anion Gap 20 (12-20); Aspartate Amino Transferase 60 U/L (5-37); Bilirubin Total 1.7 mg/dL (0.0-1.0); Blood Urea Nitrogen 87 mg/dL (9-16); Carbon Dioxide 19 mmol/L (22-29); Chloride 101 mmol/L (96-108); Creatinine Clr Calc Pharmacy 8.1; Estimated Glomerular Filt Rate 9; Glucose Random 201 mg/dL (60-115); Potassium 3.9 mmol/L (3.3-5.1); Sodium 136 mmol/L (135-145); Total Protein 6.1 g/dL (6.5-8.0)
[2024-05-01] MEDS: Montelukast Sodium 10 MG TABLET PO (08:48)
[2024-05-01] MEDS: Isosorbide Mononitrate 30 MG TAB.ER.24H PO (08:48)
[2024-05-01] MEDS: Aspirin 81 MG TAB.CHEW PO (08:49)
[2024-05-01] MEDS: Atorvastatin Calcium 80 MG TABLET PO (08:49)
[2024-05-01] MEDS: 0.9 % Sodium Chloride Flush 3 ML SYRINGE IVFLUSH ×2 (08:52→21:29)
--- NOTE | 2024-05-01 10:04 | PM.PNNEP ---
Subjective Subjective Date of Service: 05/01/24 Interval history: 83 year old man with medical history of HFrEF (EF 35-40%), aortic valve replacement, DMII, HTN, COPD (pt reports on 2L NC intermittently at home), CKD stage 4 (reports follows Dr Nguyen as an outpatient), who presented to the hospital with acute hypoxic respiratory failure 2/2 CHF exacerbation and PNA. nephrology consulted for KAILEY present on admission pt had temporary HD catheter placed on Saturday 04/28 due to uremic symptoms including nausea and mycolonus, breathing also uncomfortable HD on Wednesday, Wednesday pt's creatinine did improve slightly after first HD sessions to 3.57, but has been trending up and is currently at 6.30, the highest it has been since admission pt reports he is feeling fairly welll today, tired reports his breathing is comfortable denies nausea, vomiting denies pruritus denies tremors per Cardiology, volume status requires management by dialysis. Physical Exam Vital Signs: Vital Signs: Last Vital Signs Temp 97.3 F 05/01/24 07:44 Pulse 75 05/01/24 07:44 Resp 20 05/01/24 07:44 BP 134/70 05/01/24 07:44 Pulse Ox 92 05/01/24 07:44 O2 Del Method Room Air 05/01/24 07:44 O2 Flow Rate 2 04/28/24 07:44 BMI result Body Mass Index 19.8 Const: General: comfortable and no acute distress Orientation/consciousness: oriented to person, oriented to place and oriented to time Neck: Neck: Yes no JVD Resp: Effort & Inspection: able to speak in complete sentences Auscultation: clear to auscultation bilaterally Cardio: Jugular venous distension: no JVD Rate: regular rate Rhythm: regular rhythm Heart sounds: S1 normal heart sound present and S2 normal heart sound present GI: Other: Reports nausea Palpation (GI): Soft to palpation and nontender Rectal Exam - Male: No tenderness : General: Yes no CVA tenderness Back/Spine/Pelvis: Back: no CVA tenderness Skin: Rashes: no rashes Neuro: Other: myoclonus in upper extremities. General: oriented to person, oriented to place and oriented to time Extrem: General: Yes normal to inspection and No edema Objective Data Labs 05/01/24 06:52 05/01/24 06:52 Labs: Laboratory Results - last 24 hr 04/30/24 04/30/24 04/30/24 10:17 10:44 16:49 WBC 12.9 H RBC 4.49 L Hgb 11.3 L Hct 35.4 L MCV 78.8 L MCH 25.2 L MCHC 31.9 RDW 18.5 H Plt Count 159 L MPV 9.3 L Immature Gran % (Auto) 1.0 H Neut % (Auto) 62.7 Lymph % (Auto) 18.1 L Morrison % (Auto) 9.1 Eos % (Auto) 8.8 H Baso % (Auto) 0.3 Lymph # (Auto) 2.3 Morrison # (Auto) 1.2 Eos # (Auto) 1.1 H Baso # (Auto) 0.0 Abs Immat Gran (auto) 0.13 H Absolute Neuts (auto) 8.1 Absolute Nucleated RBC 0.000 Nucleated RBC % (auto) 0.0 Sodium 136 Potassium 3.8 Chloride 103 Carbon Dioxide 17 L Anion Gap 20 BUN 68 H Creatinine 5.18 H* Estim Creat Clear Calc 9.8 Estimated GFR 11 POC Glucose 228 H 343 H Random Glucose 246 H Calcium 8.6 Total Bilirubin 2.7 H AST 91 H ALT 107 H Alkaline Phosphatase 654 H C-Reactive Protein 8.50 H Total Protein 6.3 L Albumin 3.2 L 04/30/24 05/01/24 05/01/24 20:28 06:52 07:11 WBC 10.4 RBC 4.53 L Hgb 11.5 L Hct 36.1 L MCV 79.7 L MCH 25.4 L MCHC 31.9 RDW 18.6 H Plt Count 159 L MPV 9.2 L Immature Gran % (Auto) Neut % (Auto) Lymph % (Auto) Morrison % (Auto) Eos % (Auto) Baso % (Auto) Lymph # (Auto) Morrison # (Auto) Eos # (Auto) Baso # (Auto) Abs Immat Gran (auto) Absolute Neuts (auto) Absolute Nucleated RBC 0.000 Nucleated RBC % (auto) 0.0 Sodium 136 Potassium 3.9 Chloride 101 Carbon Dioxide 19 L Anion Gap 20 BUN 87 H Creatinine 6.30 H* Estim Creat Clear Calc 8.1 Estimated GFR 9 POC Glucose 263 H 190 H Random Glucose 201 H Calcium 9.0 Total Bilirubin 1.7 H AST 60 H ALT 91 H Alkaline Phosphatase 568 H C-Reactive Protein Total Protein 6.1 L Albumin 3.0 L Microbiology Microbiology Results: Microbiology 04/26/24 22:06 Blood - Venous Blood Culture - Preliminary No growth after 48 hours. 04/26/24 22:06 Blood - Venous Blood Culture - Preliminary No growth after 48 hours. 04/23/24 10:53 Blood - Venous Blood Culture - Final No growth after 5 days. 04/23/24 10:45 Blood - Venous Blood Culture - Final No growth after 5 days. Procedures Date of Service Date of Service: 05/01/24 Assessment & Plan Assessment and plan (1) CKD (chronic kidney disease) stage 4, GFR 15-29 ml/min: Status: Acute (2) Pulmonary edema: Status: Acute (3) Congestive heart failure: Status: Acute (4) KAILEY (acute kidney injury): Status: Acute Plan CKD stage 4 with KAILEY secondary to renal hypoperfusion 2/2 CHF exacerbation (likely precipitated by PNA) after temporary HD catheter placement and HD on Wednesday, Wednesday, pt's creatinine did improve slightly after first HD sessions to 3.57, but has been trending up and is currently at 6.30, the highest it has been since admission his subjective symptoms are well-controlled (nausea, shortness of breath), and he is more comfortable, he reports is his patient's priority pt reports today that he wants to go home before going forward with longer-term dialysis catheter placement. Discussed placement of a longer-term dialysis catheter may allow him to get HD intermittently while living at home. He states he is overwhelmed as his daughter was just admitted to the hospital, he will consider. plan for HD session today. right IJ HD catheter in place without erythema, swelling blood pressures well controlled/stable pt appears euvolemic on exam today anemia is stable, H&H 11.5/36 calcium normal today at 9.0; phosphorous 4.6 on 04/26; order placed for phosphorous re-check Cardiology continues to following as well. Discussed with Dr Conner Time Spent With Patient Time: Total time managing care of this patient today ____ minutes. Progress Note: Quality Stroke Does the patient have a stroke diagnosis?: No
--- NOTE | 2024-05-01 11:39 | PM.PNCARD ---
Subjective Subjective Date of Service: 05/01/24 Principal diagnosis: CHF exacerbation Interval history: Patient's kidney function remains poor. Plan for getting dialysis today. Currently laying flat without any symptoms of heart failure. Hemodynamically stable. Currently only on isosorbide therapy for heart failure. Review of Systems Constitutional: Reports weakness Cardiovascular: Denies chest pain, Denies leg edema, Denies lightheadedness, Denies dyspnea, Reports dyspnea on exertion and Denies orthopnea Respiratory: Denies dyspnea and Reports dyspnea on exertion Reports weakness Physical Exam Vital Signs: Last Vital Signs Temp 97.3 F 05/01/24 07:44 Pulse 75 05/01/24 07:44 Resp 20 05/01/24 07:44 BP 134/70 05/01/24 07:44 Pulse Ox 92 05/01/24 07:44 O2 Del Method Room Air 05/01/24 07:44 O2 Flow Rate 2 04/28/24 07:44 BMI result Body Mass Index 19.8 GENERAL APPEARANCE: Alert and oriented. No distress. NECK: no carotid bruit, + jugular venous distention. SKIN: no suspicious lesions, warm and dry. HEART: Ejection systolic murmur with preserved 2nd heart sound, regular rate and rhythm. LUNGS: Clear to auscultation. ABDOMEN: soft, nontender. EXTREMITIES: no edema. PERIPHERAL PULSES: equal. NEUROLOGIC: No gross deficits, AAO X 3 Objective Labs and Meds 05/01/24 06:52 05/01/24 06:52 Lab results: Laboratory Results - last 24 hr 04/30/24 04/30/24 05/01/24 16:49 20:28 06:52 WBC 10.4 RBC 4.53 L Hgb 11.5 L Hct 36.1 L MCV 79.7 L MCH 25.4 L MCHC 31.9 RDW 18.6 H Plt Count 159 L MPV 9.2 L Absolute Nucleated RBC 0.000 Nucleated RBC % (auto) 0.0 Sodium 136 Potassium 3.9 Chloride 101 Carbon Dioxide 19 L Anion Gap 20 BUN 87 H Creatinine 6.30 H* Estim Creat Clear Calc 8.1 Estimated GFR 9 POC Glucose 343 H 263 H Random Glucose 201 H Calcium 9.0 Total Bilirubin 1.7 H AST 60 H ALT 91 H Alkaline Phosphatase 568 H Total Protein 6.1 L Albumin 3.0 L 05/01/24 07:11 WBC RBC Hgb Hct MCV MCH MCHC RDW Plt Count MPV Absolute Nucleated RBC Nucleated RBC % (auto) Sodium Potassium Chloride Carbon Dioxide Anion Gap BUN Creatinine Estim Creat Clear Calc Estimated GFR POC Glucose 190 H Random Glucose Calcium Total Bilirubin AST ALT Alkaline Phosphatase Total Protein Albumin Progress Note: A&P Assessment and plan (1) CHF exacerbation: Status: Acute Assessment and Plan: CHF exacerbation in this elderly gentleman with multiple comorbidities including poor LV systolic function, bioprosthetic aortic valve stenosis, advanced renal failure requiring dialysis. From my perspective patient's volume status will need to be managed by dialysis. Continue follow with Nephrology team. Clinically today appears to be laying flat and without any significant fluid overload symptoms. I would continue maximize his vasodilators therapy and add hydralazine to her regimen and continue isosorbide therapy. Also add neurohormonal modulation with metoprolol. Overall prognosis guarded. Will sign of the case. Thank you for allowing me to partake in his care Time Spent With Patient Time: Total time managing care of this patient today ____ minutes. Progress Note: Quality Stroke Does the patient have a stroke diagnosis?: No Procedures Date of Service Date of Service: 05/01/24
[2024-05-01 12:06] LABS: Glucose, Whole Blood 236 mg/dL (60-115)
[2024-05-01] MEDS: Metoprolol Succinate ER 25 MG TAB.ER.24H PO (12:44)
[2024-05-01] MEDS: Insulin Lispro 100 UNIT/ML 3 ML VIAL SUBCUT ×2 (12:45→21:28)
--- NOTE | 2024-05-01 12:46 | MHC.CM.PN ---
EMR reviewed and per MD rounds, pt is not medically cleared for discharge due to management of KAILEY requiring HD.
--- NOTE | 2024-05-01 14:54 | P.PNIM_ITS ---
Subjective Subjective Date of Service: 05/01/24 Interval History: no chest pain or dyspnea no edema no abd pain Review of Systems Review of Systems: Yes all other systems are reviewed and are negative Physical Exam 2 Vital Signs: Vital Signs: Last Vital Signs Temp 97.6 F 05/01/24 12:00 Pulse 74 05/01/24 13:59 Resp 22 H 05/01/24 12:00 BP 123/58 L 05/01/24 13:59 Pulse Ox 95 05/01/24 13:59 O2 Del Method Room Air 05/01/24 12:00 O2 Flow Rate 2 04/28/24 07:44 BMI result Body Mass Index 19.8 Gen: in no acute distress HEENT: sclera anicteric, moist mucus membranes Neck: supple, RIJ dialysis catheter Lungs: clear to auscultation bilaterally Heart: regular rate and rhythm, 2/6 systolic murmur at base Abd: soft, non-tender, non-distended, no Stoddard sign Ext: no edema Skin: warm/well-perfused Neuro: alert and oriented x3, no focal findings Psych: appropriate affect Objective Data Active Medications Acetaminophen (Acetaminophen 325 Mg Tablet) 650 mg PO Q6H PRN PRN Reason: Pain, Mild (Pain Scale 1-3), fever or headache Last Admin: 04/28/24 08:20 Dose: 650 mg Documented By: JANETT Albuterol Sulfate (Albuterol Sulfate 90 Mcg 8 Gm Inhaler) 2 puff INHALE Q6H PRN PRN Reason: wheezing Aspirin (Aspirin 81 Mg Tab.Chew) 81 mg PO DAILY [facility] Last Admin: 05/01/24 08:49 Dose: 81 mg Documented By: TANVIR Atorvastatin Calcium (Atorvastatin Calcium 80 Mg Tablet) 80 mg PO DAILY [facility] Last Admin: 05/01/24 08:49 Dose: 80 mg Documented By: TANVIR Calcium Carbonate (Calcium Carbonate 750 Mg Tab.Chew) 750 mg PO Q4H PRN PRN Reason: Heartburn Last Admin: 04/27/24 16:03 Dose: 750 mg Documented By: IKE Glucose (Glucose Gel 15 Gm Gel..Gram.) 15 gm PO Q15M PRN; Protocol PRN Reason: per Hypoglycemia Standing Ord. Heparin Sodium (Porcine) (Heparin Sodium,Porcine 5,000 Unit/Ml Vial) 5,000 unit SUBCUT Q12H [facility] Last Admin: 05/01/24 04:00 Dose: 5,000 unit Documented By: NIKKI Heparin Sodium (Porcine) (Heparin Sodium,Porcine 5,000 Unit/Ml Vial) 5,000 unit INTRACATH MOWEFR@1645 [facility] Last Admin: 04/28/24 19:01 Dose: Not Given Documented By: JANETT Non-Admin Reason: per chair caner not given. Heparin Sodium (Porcine) (Heparin Sodium,Porcine 5,000 Unit/Ml Vial) 5,000 unit INTRACATH MOWEFR@1645 [facility] Last Admin: 04/28/24 19:01 Dose: Not Given Documented By: JANETT Non-Admin Reason: not given per dialysis nurse Heparin Sodium (Porcine) (Heparin Sodium,Porcine 5,000 Unit/Ml Vial) 5,000 unit INTRACATH MOWEFR@1645 [facility] Last Admin: 04/28/24 19:01 Dose: Not Given Documented By: JANETT Non-Admin Reason: per dialysis nurse Hydralazine HCl (Hydralazine Hcl 25 Mg Tablet) 25 mg PO TID [facility]; Protocol Dextrose (D10) 250 mls @ 750 mls/hr IV Q15M PRN; Protocol PRN Reason: per Hypoglycemia Standing Ord. Insulin Human Lispro (Insulin Lispro 100 Unit/Ml 3 Ml Vial) 0 unit SUBCUT QIDACHS [facility]; Protocol Last Admin: 05/01/24 12:45 Dose: 4 unit Documented By: TANVIR Isosorbide Mononitrate (Isosorbide Mononitrate 30 Mg Tab.Er.24h) 30 mg PO DAILY [facility]; Protocol Last Admin: 05/01/24 08:48 Dose: 30 mg Documented By: TANVIR Magnesium Hydroxide (Milk Of Magnesia 30 Ml Oral.Susp) 30 ml PO DAILY PRN PRN Reason: Constipation Melatonin (Melatonin 3 Mg Tablet) 6 mg PO BEDTIME PRN PRN Reason: Insomnia Last Admin: 04/26/24 20:53 Dose: 6 mg Documented By: LIONEL Metoprolol Succinate (Metoprolol Succinate Er 25 Mg Tab.Er.24h) 25 mg PO DAILY [facility]; Protocol Last Admin: 05/01/24 12:44 Dose: 25 mg Documented By: TANVIR Montelukast Sodium (Montelukast Sodium 10 Mg Tablet) 10 mg PO DAILY [facility] Last Admin: 05/01/24 08:48 Dose: 10 mg Documented By: TANVIR Nitroglycerin (Nitroglycerin 0.4 Mg Tab.Subl) 0.4 mg SUBLINGUAL Q5MX3 PRN PRN Reason: Chest Pain Last Admin: 04/29/24 03:54 Dose: 0.4 tab Documented By: CHRISTINA Ondansetron HCl (Ondansetron Hcl 4 Mg/2 Ml Vial) 4 mg IVPUSH Q8H PRN PRN Reason: Nausea and Vomiting Last Admin: 04/30/24 09:42 Dose: 4 mg Documented By: TANVIR Sodium Chloride (0.9 % Sodium Chloride Flush 3 Ml Syringe) 3 ml IVFLUSH QSHIFT [facility] Last Admin: 05/01/24 08:52 Dose: 3 ml Documented By: TANVIR Labs 05/01/24 06:52 05/01/24 06:52 Labs: Laboratory Results - last 24 hr 04/30/24 04/30/24 05/01/24 16:49 20:28 06:52 MCV 79.7 L MCH 25.4 L MCHC 31.9 RDW 18.6 H Plt Count 159 L MPV 9.2 L Absolute Nucleated RBC 0.000 Nucleated RBC % (auto) 0.0 Anion Gap 20 Estim Creat Clear Calc 8.1 Estimated GFR 9 POC Glucose 343 H 263 H Random Glucose 201 H Calcium 9.0 Total Bilirubin 1.7 H AST 60 H ALT 91 H Alkaline Phosphatase 568 H Total Protein 6.1 L Albumin 3.0 L 05/01/24 05/01/24 07:11 11:59 MCV MCH MCHC RDW Plt Count MPV Absolute Nucleated RBC Nucleated RBC % (auto) Anion Gap Estim Creat Clear Calc Estimated GFR POC Glucose 190 H 236 H Random Glucose Calcium Total Bilirubin AST ALT Alkaline Phosphatase Total Protein Albumin Assessment and Plan (1) Elevated LFTs: Status: Acute (2) KAILEY (acute kidney injury): Status: Acute (3) CKD (chronic kidney disease) stage 4, GFR 15-29 ml/min: Status: Acute Plan d9 83yo M with CAD s/p CABG, bioprosthetic aortic valve, CKD4, DM2, HTN, DM presenting with dyspnea, admitted for hypoxia due to CHF exacerbation + PNA and developed KAILEY and now requiring HD KAILEY/CKD4 metabolic acidosis - dialyzed 04/28 and 04/29 and plan again today with BUN/Cr worsening, Nephrology following, will discuss conversion to Permacath AHRF due to acute-chronic HFrEF prosthetic aortic valve stenosis - dialyze as above as above - TTE 04/25/24: - Normal left ventricular cavity size. There is moderately increased left ventricular wall thickness. The left ventricular systolic function is severely decreased. The visually estimated ejection fraction is between 15-20%. - Elevated filling pressures. - Mildly increased right ventricular cavity size. There is moderately decreased right ventricular systolic function. - The left atrium is severely dilated. - There is moderate calcification of the aortic valve. There is moderate aortic valve stenosis. - Moderately elevated right atrial pressure. Moderate pulmonary hypertension is present. - There is mild dilatation of the ascending aorta measuring 4.10 cm. - Cardiology following; restart metoprolol succinate; continue Imdur; add hydralazine recurrent fever - initially felt to have pneumonia but no infiltrate on CXR. UA negative, RPP negative, abd CT with cardiomegaly, splenomegaly, BPH. BCx negative. Abd US with thickened gallbladder wall. Will check HIDA scan per GI consultation. Monitor LFTs- Tbili coming down. ID consulted as well. No fever since 04/27/24 @346. Suspect LFT elevations are due to hepatic congestion. Could have been drug fever from gabapentin which has been discontinued tremors - likely gabapentin excess; discontinued and tremors resolved troponin elevation - due to CHF; no ischemic EKG changes; no cardiac intervention planned hyperK, mild - resolved HTN - hydralazine + metoprolol succinate + Imdur CAD - atorvastatin DM2 - hernandez-dose lispro COPD/asthma without acute exacerbation - prn albuterol VTE ppx - UFH dispo - TBD In my clinical judgment, the patient requires continued inpatient hospitalization for the following reasons: KAILEY requiring HD Total time managing care of this patient today: 45 minutes. Quality Stroke Does the patient have a stroke diagnosis?: No VTE Prior VTE?: No VTE Risk Level:: Medical - moderate - high VTE Device Contraindication: Treatment Not Indicated VTE Drug Contraindication: N/A - Med Ordered
[2024-05-01 21:16] LABS: Glucose, Whole Blood 344 mg/dL (60-115)
[2024-05-01] MEDS: hydrALAZINE HCl 25 MG TABLET PO (21:27)
[2024-05-02] VITALS (9 sets, daily range): BP systolic 105–128; BP diastolic 54–63; PULSE 76–93; RESP 16–20; TEMP 36.4–36.9; O2SAT 93–96
[2024-05-02] MEDS: Heparin Sodium,Porcine 5,000 UNIT/ML VIAL 5000 UNIT SUBCUT ×2 (04:26→16:30)
[2024-05-02 07:16] LABS: Alanine Aminotransferase 84 U/L (0-40); Albumin Level 2.9 g/dL (3.5-5.0); Alkaline Phosphatase 605 U/L (39-117); Anion Gap 17 (12-20); Aspartate Amino Transferase 54 U/L (5-37); Bilirubin Total 1.8 mg/dL (0.0-1.0); Blood Urea Nitrogen 49 mg/dL (9-16); C Reactive Protein 2.97 mg/dL (< or = 0.50); Calcium 8.2 mg/dL (8.4-10.2); Carbon Dioxide 23 mmol/L (22-29); Chloride 99 mmol/L (96-108); Creatinine Clr Calc Pharmacy 12.5; Estimated Glomerular Filt Rate 14; Glucose Random 293 mg/dL (60-115); Potassium 3.5 mmol/L (3.3-5.1); Sodium 135 mmol/L (135-145)
[2024-05-02 07:51] LABS: B Type Natriuretic Peptide 6342 pg/mL (<100)
[2024-05-02] MEDS: Insulin Lispro 100 UNIT/ML 3 ML VIAL SUBCUT ×4 (08:09→22:43)
[2024-05-02] MEDS: Isosorbide Mononitrate 30 MG TAB.ER.24H PO (08:10)
[2024-05-02] MEDS: Insulin Glargine,Hum.rec.anlog 100 UNIT/ML 10 ML VIAL 10 UNIT SUBCUT (08:10)
[2024-05-02] MEDS: Aspirin 81 MG TAB.CHEW PO (08:10)
[2024-05-02] MEDS: Atorvastatin Calcium 80 MG TABLET PO (08:13)
[2024-05-02] MEDS: Montelukast Sodium 10 MG TABLET PO (08:13)
[2024-05-02] MEDS: hydrALAZINE HCl 25 MG TABLET PO ×3 (08:13→22:43)
[2024-05-02] MEDS: Metoprolol Succinate ER 25 MG TAB.ER.24H PO (08:13)
[2024-05-02] MEDS: 0.9 % Sodium Chloride Flush 3 ML SYRINGE IVFLUSH ×3 (08:14→22:44)
[2024-05-02 08:25] LABS: Glucose, Whole Blood 282 mg/dL (60-115)
--- NOTE | 2024-05-02 09:43 | P.PNIM_ITS ---
Subjective Subjective Date of Service: 05/02/24 Interval History: no chest pain no dyspnea refuses STR Review of Systems Review of Systems: Yes all other systems are reviewed and are negative Physical Exam 2 Vital Signs: Vital Signs: Last Vital Signs Temp 97.6 F 05/02/24 08:00 Pulse 80 05/02/24 08:13 Resp 18 05/02/24 08:00 BP 118/60 05/02/24 08:10 Pulse Ox 96 05/02/24 08:00 O2 Del Method Room Air 05/02/24 08:00 O2 Flow Rate 2 04/28/24 07:44 BMI result Body Mass Index 19.8 Gen: in no acute distress HEENT: sclera anicteric, moist mucus membranes Neck: supple, RIJ temporary dialysis catheter Lungs: clear to auscultation bilaterally Heart: regular rate and rhythm, 2/6 systolic murmur at base Abd: soft, non-tender, non-distended, no Stoddard sign Ext: no edema Skin: warm/well-perfused Neuro: alert and oriented x3, no focal findings Psych: appropriate affect Objective Data Active Medications Acetaminophen (Acetaminophen 325 Mg Tablet) 650 mg PO Q6H PRN PRN Reason: Pain, Mild (Pain Scale 1-3), fever or headache Last Admin: 04/28/24 08:20 Dose: 650 mg Documented By: JANETT Albuterol Sulfate (Albuterol Sulfate 90 Mcg 8 Gm Inhaler) 2 puff INHALE Q6H PRN PRN Reason: wheezing Aspirin (Aspirin 81 Mg Tab.Chew) 81 mg PO DAILY [facility] Last Admin: 05/02/24 08:10 Dose: 81 mg Documented By: LORY Atorvastatin Calcium (Atorvastatin Calcium 80 Mg Tablet) 80 mg PO DAILY [facility] Last Admin: 05/02/24 08:13 Dose: 80 mg Documented By: LORY Calcium Carbonate (Calcium Carbonate 750 Mg Tab.Chew) 750 mg PO Q4H PRN PRN Reason: Heartburn Last Admin: 04/27/24 16:03 Dose: 750 mg Documented By: IKE Glucose (Glucose Gel 15 Gm Gel..Gram.) 15 gm PO Q15M PRN; Protocol PRN Reason: per Hypoglycemia Standing Ord. Heparin Sodium (Porcine) (Heparin Sodium,Porcine 5,000 Unit/Ml Vial) 5,000 unit SUBCUT Q12H [facility] Last Admin: 05/02/24 04:26 Dose: 5,000 unit Documented By: OSMEL Heparin Sodium (Porcine) (Heparin Sodium,Porcine 5,000 Unit/Ml Vial) 5,000 unit INTRACATH MOWEFR@1645 [facility] Last Admin: 05/01/24 18:27 Dose: Not Given Documented By: TANVIR Non-Admin Reason: Off unit: Dialysis Heparin Sodium (Porcine) (Heparin Sodium,Porcine 5,000 Unit/Ml Vial) 5,000 unit INTRACATH MOWEFR@1645 [facility] Last Admin: 05/01/24 18:28 Dose: Not Given Documented By: TANVIR Non-Admin Reason: Off unit: Dialysis Heparin Sodium (Porcine) (Heparin Sodium,Porcine 5,000 Unit/Ml Vial) 5,000 unit INTRACATH MOWEFR@1645 [facility] Last Admin: 05/01/24 18:29 Dose: Not Given Documented By: TANVIR Non-Admin Reason: Off unit: Dialysis Hydralazine HCl (Hydralazine Hcl 25 Mg Tablet) 25 mg PO TID [facility]; Protocol Last Admin: 05/02/24 08:13 Dose: 25 mg Documented By: LORY Dextrose (D10) 250 mls @ 750 mls/hr IV Q15M PRN; Protocol PRN Reason: per Hypoglycemia Standing Ord. Insulin Glargine (Insulin Glargine,Hum.Rec.Anlog 100 Unit/Ml 10 Ml Vial) 10 unit SUBCUT DAILY [facility] Last Admin: 05/02/24 08:10 Dose: 10 unit Documented By: LORY Insulin Human Lispro (Insulin Lispro 100 Unit/Ml 3 Ml Vial) 0 unit SUBCUT QIDACHS [facility]; Protocol Last Admin: 05/02/24 08:09 Dose: 6 unit Documented By: LORY Isosorbide Mononitrate (Isosorbide Mononitrate 30 Mg Tab.Er.24h) 30 mg PO DAILY [facility]; Protocol Last Admin: 05/02/24 08:10 Dose: 30 mg Documented By: LORY Magnesium Hydroxide (Milk Of Magnesia 30 Ml Oral.Susp) 30 ml PO DAILY PRN PRN Reason: Constipation Melatonin (Melatonin 3 Mg Tablet) 6 mg PO BEDTIME PRN PRN Reason: Insomnia Last Admin: 04/26/24 20:53 Dose: 6 mg Documented By: LIONEL Metoprolol Succinate (Metoprolol Succinate Er 25 Mg Tab.Er.24h) 25 mg PO DAILY [facility]; Protocol Last Admin: 05/02/24 08:13 Dose: 25 mg Documented By: LORY Montelukast Sodium (Montelukast Sodium 10 Mg Tablet) 10 mg PO DAILY [facility] Last Admin: 05/02/24 08:13 Dose: 10 mg Documented By: LORY Nitroglycerin (Nitroglycerin 0.4 Mg Tab.Subl) 0.4 mg SUBLINGUAL Q5MX3 PRN PRN Reason: Chest Pain Last Admin: 04/29/24 03:54 Dose: 0.4 tab Documented By: CHIRSTINA Ondansetron HCl (Ondansetron Hcl 4 Mg/2 Ml Vial) 4 mg IVPUSH Q8H PRN PRN Reason: Nausea and Vomiting Last Admin: 04/30/24 09:42 Dose: 4 mg Documented By: TANVIR Sodium Chloride (0.9 % Sodium Chloride Flush 3 Ml Syringe) 3 ml IVFLUSH QSHIFT [facility] Last Admin: 05/02/24 08:14 Dose: 3 ml Documented By: LORY Labs 05/01/24 06:52 05/02/24 06:28 Labs: Laboratory Results - last 24 hr 05/01/24 05/01/24 05/02/24 11:59 21:12 06:28 Anion Gap 17 Estim Creat Clear Calc 12.5 Estimated GFR 14 POC Glucose 236 H 344 H Random Glucose 293 H Calcium 8.2 L D Phosphorus 4.0 Total Bilirubin 1.8 H AST 54 H ALT 84 H Alkaline Phosphatase 605 H C-Reactive Protein 2.97 H B-Natriuretic Peptide 6342 H Total Protein 6.0 L Albumin 2.9 L 05/02/24 07:58 Anion Gap Estim Creat Clear Calc Estimated GFR POC Glucose 282 H Random Glucose Calcium Phosphorus Total Bilirubin AST ALT Alkaline Phosphatase C-Reactive Protein B-Natriuretic Peptide Total Protein Albumin Impressions Hepatobiliary Scan Nuclear Medicine 05/01/24 09:30 IMPRESSION: Visualization of the gallbladder is evidence of a patent cystic duct and strong evidence against the diagnosis of acute cholecystitis. The common bile duct is patent. Gallbladder emptying and ejection fraction are normal. Liver function appears normal. Electronically signed by: Keith Pearl MD 05/02/2024 08:50 AM EDT RP Microbiology Microbiology Results: Microbiology 04/26/24 22:06 Blood Culture - Final Blood - Venous No growth after 5 days. 04/26/24 22:06 Blood Culture - Final Blood - Venous No growth after 5 days. Assessment and Plan (1) Elevated LFTs: Status: Acute (2) KAILEY (acute kidney injury): Status: Acute (3) CKD (chronic kidney disease) stage 4, GFR 15-29 ml/min: Status: Acute Plan d10 83yo M with CAD s/p CABG, bioprosthetic aortic valve, CKD4, DM2, HTN, DM presenting with dyspnea, admitted for hypoxia due to CHF exacerbation + PNA and developed KAILEY and now requiring HD KAILEY/CKD4 metabolic acidosis - dialyzed 04/28 and 04/29 and 05/01, Nephrology following, will convert to Permacath tomorrow and seek outpt HD placement AHRF due to acute-chronic HFrEF prosthetic aortic valve stenosis - dialyze as above for fluid management - TTE 04/25/24: - Normal left ventricular cavity size. There is moderately increased left ventricular wall thickness. The left ventricular systolic function is severely decreased. The visually estimated ejection fraction is between 15-20%. - Elevated filling pressures. - Mildly increased right ventricular cavity size. There is moderately decreased right ventricular systolic function. - The left atrium is severely dilated. - There is moderate calcification of the aortic valve. There is moderate aortic valve stenosis. - Moderately elevated right atrial pressure. Moderate pulmonary hypertension is present. - There is mild dilatation of the ascending aorta measuring 4.10 cm. - Cardiology consulted restart metoprolol succinate; continue Imdur; added hydralazine recurrent fever - initially felt to have pneumonia but no infiltrate on CXR. UA negative, RPP negative, abd CT with cardiomegaly, splenomegaly, BPH. BCx negative. Abd US with thickened gallbladder wall. GI consulted. HIDA negative. Monitor LFTs- improving. ID consulted as well. No fever since 04/27/24 @346. Suspect LFT elevations were due to hepatic congestion. Could have been drug fever from gabapentin which has been discontinued tremors - likely gabapentin excess; discontinued and tremors resolved troponin elevation - due to CHF; no ischemic EKG changes; no cardiac intervention planned hyperK, mild - resolved HTN - hydralazine + metoprolol succinate + Imdur CAD - atorvastatin DM2 - hernandez-dose lispro COPD/asthma without acute exacerbation - prn albuterol VTE ppx - UFH dispo - declines STR; plan home with VNA, will need outpt HD placement In my clinical judgment, the patient requires continued inpatient hospitalization for the following reasons: KAILEY requiring HD Total time managing care of this patient today: 45 minutes. Quality Stroke Does the patient have a stroke diagnosis?: No VTE Prior VTE?: No VTE Risk Level:: Medical - moderate - high VTE Device Contraindication: Treatment Not Indicated VTE Drug Contraindication: N/A - Med Ordered
--- NOTE | 2024-05-02 09:52 | P.PNNP_ITS ---
Subjective Subjective Date of Service: 05/02/24 Principal diagnosis: CHF exacerbation Interval history: 83 year old man with medical history of HFrEF (EF 35-40%), aortic valve replacement, DMII, HTN, COPD (pt reports on 2L NC intermittently at home), CKD stage 4 (reports follows Dr Nguyen as an outpatient), who presented to the hospital with acute hypoxic respiratory failure 2/2 CHF exacerbation and PNA. nephrology consulted for KAILEY present on admission pt had temporary HD catheter placed on Saturday 04/28 due to uremic symptoms including nausea and mycolonus, breathing also uncomfortable HD on Wednesday, Wednesday, Wednesday (yesterday). pt's creatinine did improve slightly after first HD sessions to 3.57 but continues to trend up between sessions pt reports he is feeling fairly well today, tired reports his breathing is comfortable denies nausea, vomiting denies pruritus denies tremors reports he is urinating periodically- 400mL over last 24 hours per Cardiology, volume status requires management by dialysis. Physical Exam 2 Vital Signs: Vital Signs: Last Vital Signs Temp 97.6 F 05/02/24 08:00 Pulse 80 05/02/24 08:13 Resp 18 05/02/24 08:00 BP 118/60 05/02/24 08:10 Pulse Ox 96 05/02/24 08:00 O2 Del Method Room Air 05/02/24 08:00 O2 Flow Rate 2 04/28/24 07:44 BMI result Body Mass Index 19.8 Const: General: comfortable and no acute distress O rientation/consciousness: oriented to person, oriented to place and oriented to time Neck: Neck: Yes no JVD Resp: Effort & Inspection: able to speak in complete sentences A uscultation: clear to auscultation bilaterally Cardio: Jugular venous distension: no JVD Rate: regular rate Rhythm: r egular rhythm Heart sounds: S1 normal heart sound present and S2 normal heart sound present GI: Other: Reports nausea Palpation (GI): Soft to palpation and nontender Rectal Exam - Male: No tenderness : General: Yes no CVA tenderness Back/Spine/Pelvis: Back: no CVA tenderness Skin: Rashes: no rashes Neuro: Other: myoclonus in upper extremities. General: oriented to person, oriented to place and oriented to time Extrem: General: Yes normal to inspection and No edema Objective Data Labs 05/01/24 06:52 10/08/24 06:28 Labs: Laboratory Results - last 24 hr 05/01/24 05/01/24 05/02/24 11:59 21:12 06:28 Sodium 135 Potassium 3.5 Chloride 99 Carbon Dioxide 23 Anion Gap 17 BUN 49 H Creatinine 4.07 H* Estim Creat Clear Calc 12.5 Estimated GFR 14 POC Glucose 236 H 344 H Random Glucose 293 H Calcium 8.2 L D Phosphorus 4.0 Total Bilirubin 1.8 H AST 54 H ALT 84 H Alkaline Phosphatase 605 H C-Reactive Protein 2.97 H B-Natriuretic Peptide 6342 H Total Protein 6.0 L Albumin 2.9 L 05/02/24 07:58 Sodium Potassium Chloride Carbon Dioxide Anion Gap BUN Creatinine Estim Creat Clear Calc Estimated GFR POC Glucose 282 H Random Glucose Calcium Phosphorus Total Bilirubin AST ALT Alkaline Phosphatase C-Reactive Protein B-Natriuretic Peptide Total Protein Albumin Microbiology Microbiology Results: Microbiology 04/26/24 22:06 Blood - Venous Blood Culture - Final No growth after 5 days. 04/26/24 22:06 Blood - Venous Blood Culture - Final No growth after 5 days. 04/23/24 10:53 Blood - Venous Blood Culture - Final No growth after 5 days. 04/23/24 10:45 Blood - Venous Blood Culture - Final No growth after 5 days. Procedures Date of Service Date of Service: 05/02/24 Assessment & Plan Assessment and plan (1) CKD (chronic kidney disease) stage 4, GFR 15-29 ml/min: Status: Acute (2) Pulmonary edema: Status: Acute (3) Congestive heart failure: Status: Acute (4) KAILEY (acute kidney injury): Status: Acute Plan CKD stage 4 with KAILEY secondary to renal hypoperfusion 2/2 CHF exacerbation (likely precipitated by PNA) his subjective symptoms are well-controlled (nausea, shortness of breath), and he is more comfortable, he reports this is his priority Discussed with patient today about need for longer-term dialysis (length of need may be indefinite, unclear at this time) at home in order to prevent dangerous fluid build-up from heart failure and kidney failure. Discussed this will also likely help with nausea, breathing difficulties that he has been experiencing that have improved with dialysis. Pt is agreeable today for permacath placement to allow for dialysis as an outpatient- discussed being at home and going to HD center intermittently, likely Wednesday, Wednesday, Wednesday each week. Pt is agreeable to this plan. Permacath placement ordered through IR tomorrow to replace temporary right IJ HD line Plan for HD tomorrow (Thursday 05/03) after permacath placement Pt has been maintaining stable blood pressures appears euvolemic today anemia is stable H&H 11.5/36.1 corrected calcium normal at 9, phosphorous normal at 4.0 continues to make urine though oliguric, 400mL over last [address] Conner Time Spent With Patient Time: Total time managing care of this patient today ____ minutes. Progress Note: Quality Stroke Does the patient have a stroke diagnosis?: No
[2024-05-02 11:33] LABS: Mitochondrial Antibodies NEGATIVE (NEGATIVE)
[2024-05-02 11:59] LABS: Glucose, Whole Blood 471 mg/dL (60-115)
[2024-05-02 17:02] LABS: Glucose, Whole Blood 299 mg/dL (60-115)
[2024-05-02 21:14] LABS: Glucose, Whole Blood 226 mg/dL (60-115)
[2024-05-03] VITALS (9 sets, daily range): BP systolic 101–127; BP diastolic 55–64; PULSE 76–101; RESP 13–20; TEMP 36.1–36.8; O2SAT 93–96; BMI 19.8
[2024-05-03] MEDS: Heparin Sodium,Porcine 5,000 UNIT/ML VIAL 5000 UNIT SUBCUT ×2 (03:21→16:54)
[2024-05-03 07:21] LABS: Anion Gap 19 (12-20); Blood Urea Nitrogen 61 mg/dL (9-16); Calcium 8.6 mg/dL (8.4-10.2); Carbon Dioxide 22 mmol/L (22-29); Chloride 102 mmol/L (96-108); Creatinine Clr Calc Pharmacy 10.6; Estimated Glomerular Filt Rate 12; Glucose Random 291 mg/dL (60-115); Potassium 3.5 mmol/L (3.3-5.1); Sodium 139 mmol/L (135-145)
[2024-05-03 07:27] LABS: Glucose, Whole Blood 279 mg/dL (60-115)
[2024-05-03] MEDS: Insulin Glargine,Hum.rec.anlog 100 UNIT/ML 10 ML VIAL 10 UNIT SUBCUT (07:32)
[2024-05-03] MEDS: 0.9 % Sodium Chloride Flush 3 ML SYRINGE IVFLUSH ×3 (07:34→21:29)
[2024-05-03 07:41] LABS: B Type Natriuretic Peptide 8828 pg/mL (<100)
--- NOTE | 2024-05-03 09:36 | P.PNNP_ITS ---
Subjective Subjective Date of Service: 05/03/24 Principal diagnosis: CHF exacerbation Interval history: 83 year old man with medical history of HFrEF (EF 35-40%), aortic valve replacement, DMII, HTN, COPD (pt reports on 2L NC intermittently at home), CKD stage 4 (reports follows Dr Nguyen as an outpatient), who presented to the hospital with acute hypoxic respiratory failure 2/2 CHF exacerbation and PNA. nephrology consulted for KAILEY present on admission pt had temporary HD catheter placed on Saturday 04/28 due to uremic symptoms including nausea and mycolonus, breathing also uncomfortable HD on Wednesday, Wednesday, Wednesday (yesterday). pt's creatinine did improve slightly after first HD sessions to 3.57 but continues to trend up between sessions pt agreeable yesterday to permacath placement to continue HD upon discharge home; this is being placed today with plan for HD after catheter placement. pt only responding right or shaking head no intermittently to questions today when asked what year it is, he responds right and when asked if he does not remember the year he shakes his head no; when asked where he is he states right opens eyes to voice, only intermittently responding to questions with one-word answers, lethargic his breathing is somewhat labored no urine output recorded for last 24 hours- pt not able to verify if he has made any urine per Cardiology, volume status requires management by dialysis. Physical Exam 2 Vital Signs: Vital Signs: Last Vital Signs Temp 98.2 F 05/03/24 07:22 Pulse 101 H 05/03/24 09:32 Resp 14 05/03/24 07:22 BP 127/64 05/03/24 09:32 Pulse Ox 95 05/03/24 09:32 O2 Del Method Room Air 05/03/24 07:22 O2 Flow Rate 2 04/28/24 07:44 BMI result Body Mass Index 19.8 Const: General: lethargic Orientation/consciousness: lethargic Neck: Neck: Yes no JVD Resp: Effort & Inspection: labored Auscultation: clear to auscultation bilaterally Cardio: Jugular venous distension: no JVD Rate: regular rate Rhythm: r egular rhythm Heart sounds: S1 normal heart sound present and S2 normal heart sound present GI: Other: Reports nausea Palpation (GI): Soft to palpation and nontender Rectal Exam - Male: No tenderness : General: Yes no CVA tenderness Back/Spine/Pelvis: Back: no CVA tenderness Skin: Rashes: no rashes Neuro: Other: myoclonus in upper extremities. Extrem: General: Yes normal to inspection and No edema Objective Data Labs 05/03/24 10:42 05/03/24 06:45 Labs: Laboratory Results - last 24 hr 04/28/24 05/02/24 05/02/24 06:21 11:52 16:47 Sodium Potassium Chloride Carbon Dioxide Anion Gap BUN Creatinine Estim Creat Clear Calc Estimated GFR POC Glucose 471 H* 299 H Random Glucose Calcium B-Natriuretic Peptide Anti-Mitochondrial Ab NEGATIVE 05/02/24 05/03/24 05/03/24 21:09 06:45 07:23 Sodium 139 Potassium 3.5 Chloride 102 Carbon Dioxide 22 Anion Gap 19 BUN 61 H Creatinine 4.79 H* Estim Creat Clear Calc 10.6 Estimated GFR 12 POC Glucose 226 H 279 H Random Glucose 291 H Calcium 8.6 B-Natriuretic Peptide 8828 H Anti-Mitochondrial Ab Microbiology Microbiology Results: Microbiology 04/26/24 22:06 Blood - Venous Blood Culture - Final No growth after 5 days. 04/26/24 22:06 Blood - Venous Blood Culture - Final No growth after 5 days. 04/23/24 10:53 Blood - Venous Blood Culture - Final No growth after 5 days. 04/23/24 10:45 Blood - Venous Blood Culture - Final No growth after 5 days. Procedures Date of Service Date of Service: 05/03/24 Assessment & Plan Assessment and plan (1) CKD (chronic kidney disease) stage 4, GFR 15-29 ml/min: Status: Acute (2) Pulmonary edema: Status: Acute (3) Congestive heart failure: Status: Acute (4) KAILEY (acute kidney injury): Status: Acute Plan CKD stage 4 with KAILEY secondary to renal hypoperfusion 2/2 CHF exacerbation (likely precipitated by PNA) Today pt is lethargic with change in mental status, and breathing is labored, hypervolemic will plan for HD this a.m. through temporary catheter before permcath placement, which cannot be done until later this afternoon recommend further workup for altered mental status, as BUN is 61 this a.m. and uremia unlikely to explain mental status alteration recommend head CT, chest xray, urine culture, HD line culture, liver functions, ammonia level Permacath placement planned for later today through IR to replace temporary HD line Plan for HD this a.m. through temporary catheter; pt appears hypervolemic and breathing is labored Pt has been maintaining stable blood pressures anemia is stable H&H 11.5/36.1 corrected calcium normal at 8.6, phosphorous normal at 4.0 pt currently anuric - patel catheter inserted this a.m. Discussed with Dr Conner Time Spent With Patient Time: Total time managing care of this patient today ____ minutes. Progress Note: Quality Stroke Does the patient have a stroke diagnosis?: No
--- NOTE | 2024-05-03 09:46 | HO.PM.IMPN ---
Subjective Subjective Date of Service: 05/03/24 Interval History: short of breath no chest pain somnolent but arousable Review of Systems Review of Systems: Yes all other systems are reviewed and are negative Physical Exam Vital Signs: Vital Signs: Last Vital Signs Temp 98.2 F 05/03/24 07:22 Pulse 101 H 05/03/24 09:32 Resp 14 05/03/24 07:22 BP 127/64 05/03/24 09:32 Pulse Ox 95 05/03/24 09:32 O2 Del Method Room Air 05/03/24 07:22 O2 Flow Rate 2 04/28/24 07:44 BMI result Body Mass Index 19.8 Gen: somewhat tachypneic HEENT: sclera anicteric, moist mucus membranes Neck: supple, RIJ temporary dialysis catheter Lungs: diminished Heart: regular, tachycardic, 2/6 systolic murmur at base Abd: soft, non-tender, non-distended, no Stoddard sign Ext: no edema Skin: warm/well-perfused Neuro: somnolent but arousable, no focal findings Psych: appropriate affect Objective Data Active Medications Acetaminophen (Acetaminophen 325 Mg Tablet) 650 mg PO Q6H PRN PRN Reason: Pain, Mild (Pain Scale 1-3), fever or headache Last Admin: 04/28/24 08:20 Dose: 650 mg Documented By: JANETT Albuterol Sulfate (Albuterol Sulfate 90 Mcg 8 Gm Inhaler) 2 puff INHALE Q6H PRN PRN Reason: wheezing Aspirin (Aspirin 81 Mg Tab.Chew) 81 mg PO DAILY [facility] Last Admin: 05/02/24 08:10 Dose: 81 mg Atorvastatin Calcium (Atorvastatin Calcium 80 Mg Tablet) 80 mg PO DAILY [facility] Last Admin: 05/02/24 08:13 Dose: 80 mg Calcium Carbonate (Calcium Carbonate 750 Mg Tab.Chew) 750 mg PO Q4H PRN PRN Reason: Heartburn Last Admin: 04/27/24 16:03 Dose: 750 mg Documented By: IKE Glucose (Glucose Gel 15 Gm Gel..Gram.) 15 gm PO Q15M PRN; Protocol PRN Reason: per Hypoglycemia Standing Ord. Heparin Sodium (Porcine) (Heparin Sodium,Porcine 5,000 Unit/Ml Vial) 5,000 unit SUBCUT Q12H [facility] Last Admin: 05/03/24 03:21 Dose: 5,000 unit Documented By: OSMEL Heparin Sodium (Porcine) (Heparin Sodium,Porcine 5,000 Unit/Ml Vial) 5,000 unit INTRACATH MOWEFR@1645 [facility] Last Admin: 05/01/24 18:27 Dose: Not Given Documented By: TANVIR Non-Admin Reason: Off unit: Dialysis Heparin Sodium (Porcine) (Heparin Sodium,Porcine 5,000 Unit/Ml Vial) 5,000 unit INTRACATH MOWEFR@1645 [facility] Last Admin: 05/01/24 18:28 Dose: Not Given Documented By: TANVIR Non-Admin Reason: Off unit: Dialysis Heparin Sodium (Porcine) (Heparin Sodium,Porcine 5,000 Unit/Ml Vial) 5,000 unit INTRACATH MOWEFR@1645 [facility] Last Admin: 05/01/24 18:29 Dose: Not Given Documented By: TANVIR Non-Admin Reason: Off unit: Dialysis Heparin Sodium (Porcine) (Heparin Sodium,Porcine 5,000 Unit/Ml Vial) 5,000 unit INTRACATH MOWEFR@1645 [facility] Hydralazine HCl (Hydralazine Hcl 25 Mg Tablet) 25 mg PO TID [facility]; Protocol Last Admin: 05/02/24 22:43 Dose: 25 mg Documented By: OSMEL Dextrose (D10) 250 mls @ 750 mls/hr IV Q15M PRN; Protocol PRN Reason: per Hypoglycemia Standing Ord. Insulin Glargine (Insulin Glargine,Hum.Rec.Anlog 100 Unit/Ml 10 Ml Vial) 16 unit SUBCUT DAILY [facility] Insulin Human Lispro (Insulin Lispro 100 Unit/Ml 3 Ml Vial) 0 unit SUBCUT QIDACHS [facility]; Protocol Last Admin: 05/03/24 07:36 Dose: Not Given Documented By: LAUREANO Non-Admin Reason: NPO Isosorbide Mononitrate (Isosorbide Mononitrate 30 Mg Tab.Er.24h) 30 mg PO DAILY [facility]; Protocol Last Admin: 05/02/24 08:10 Dose: 30 mg Documented By: BROJoe Magnesium Hydroxide (Milk Of Magnesia 30 Ml Oral.Susp) 30 ml PO DAILY PRN PRN Reason: Constipation Melatonin (Melatonin 3 Mg Tablet) 6 mg PO BEDTIME PRN PRN Reason: Insomnia Last Admin: 04/26/24 20:53 Dose: 6 mg Documented By: LIONEL Metoprolol Succinate (Metoprolol Succinate Er 25 Mg Tab.Er.24h) 25 mg PO DAILY [facility]; Protocol Last Admin: 05/02/24 08:13 Dose: 25 mg Documented By: DOBROJoe Montelukast Sodium (Montelukast Sodium 10 Mg Tablet) 10 mg PO DAILY [facility] Last Admin: 05/02/24 08:13 Dose: 10 mg Nitroglycerin (Nitroglycerin 0.4 Mg Tab.Subl) 0.4 mg SUBLINGUAL Q5MX3 PRN PRN Reason: Chest Pain Last Admin: 04/29/24 03:54 Dose: 0.4 tab Documented By: CHRISTINA Ondansetron HCl (Ondansetron Hcl 4 Mg/2 Ml Vial) 4 mg IVPUSH Q8H PRN PRN Reason: Nausea and Vomiting Last Admin: 04/30/24 09:42 Dose: 4 mg Documented By: TANVIR Sodium Chloride (0.9 % Sodium Chloride Flush 3 Ml Syringe) 3 ml IVFLUSH QSHIFT [facility] Last Admin: 05/03/24 07:34 Dose: 3 ml Documented By: N-RIVLA Labs 05/01/24 06:52 05/03/24 06:45 Labs: Laboratory Results - last 24 hr 04/28/24 05/02/24 05/02/24 06:21 11:52 16:47 Anion Gap Estim Creat Clear Calc Estimated GFR POC Glucose 471 H* 299 H Random Glucose Calcium B-Natriuretic Peptide Anti-Mitochondrial Ab NEGATIVE 05/02/24 05/03/24 05/03/24 21:09 06:45 07:23 Anion Gap 19 Estim Creat Clear Calc 10.6 Estimated GFR 12 POC Glucose 226 H 279 H Random Glucose 291 H Calcium 8.6 B-Natriuretic Peptide 8828 H Anti-Mitochondrial Ab Assessment and Plan (1) CHF exacerbation: Status: Acute Plan d11 83yo M with CAD s/p CABG, bioprosthetic aortic valve, CKD4, DM2, HTN, DM presenting with dyspnea, admitted for hypoxia due to CHF exacerbation + PNA and developed KALIEY and now requiring HD KAILEY/CKD4 metabolic acidosis - dialyzed 04/28 and 04/29 and 05/01, Nephrology following, will dialyze this AM, convert to Permacath this PM AHRF due to acute-chronic HFrEF prosthetic aortic valve stenosis - appears hypervolemic, will dialyze now - TTE 04/25/24: - Normal left ventricular cavity size. There is moderately increased left ventricular wall thickness. The left ventricular systolic function is severely decreased. The visually estimated ejection fraction is between 15-20%. - Elevated filling pressures. - Mildly increased right ventricular cavity size. There is moderately decreased right ventricular systolic function. - The left atrium is severely dilated. - There is moderate calcification of the aortic valve. There is moderate aortic valve stenosis. - Moderately elevated right atrial pressure. Moderate pulmonary hypertension is present. - There is mild dilatation of the ascending aorta measuring 4.10 cm. - Cardiology consulted restart metoprolol succinate; continue Imdur; added hydralazine recurrent fever - initially felt to have pneumonia but no infiltrate on CXR. UA negative, RPP negative, abd CT with cardiomegaly, splenomegaly, BPH. BCx negative. Abd US with thickened gallbladder wall. GI consulted. HIDA negative. Monitor LFTs- improving. ID consulted as well. No fever since 04/27/24 @346. Suspect LFT elevations were due to hepatic congestion. Could have been drug fever from gabapentin which has been discontinued tremors - likely gabapentin excess; discontinued and tremors resolved troponin elevation - due to CHF; no ischemic EKG changes; no cardiac intervention planned hyperK, mild - resolved HTN - hydralazine + metoprolol succinate + Imdur CAD - atorvastatin DM2 - hernandez-dose lispro COPD/asthma without acute exacerbation - prn albuterol VTE ppx - UFH dispo - declines STR; plan home with VNA, will need outpt HD placement In my clinical judgment, the patient requires continued inpatient hospitalization for the following reasons: KAILEY requiring HD Total time managing care of this patient today: 45 minutes. Quality Stroke Does the patient have a stroke diagnosis?: No VTE Prior VTE?: No VTE Risk Level:: Medical - moderate - high VTE Device Contraindication: Treatment Not Indicated VTE Drug Contraindication: N/A - Med Ordered
[2024-05-03 10:47] LABS: C Reactive Protein 5.51 mg/dL (< or = 0.50)
[2024-05-03 10:51] LABS: Hematocrit 36.4 % (42.0-52.0); Hemoglobin 11.5 g/dl (14.0-18.0); Mean Corpuscular HGB Conc 31.6 g/dl (31.0-36.0); Mean Corpuscular Hemoglobin 25.3 pg (27.0-33.0); Mean Platelet Volume 9.4 fL (9.4-12.4); Platelet Count 124 X10*3/uL (160-400); Red Blood Count 4.55 X10*6/uL (4.60-5.80); Red Cell Distribution Width 18.8 % (11.0-16.0); White Blood Count 8.4 X10*3/uL (4.8-10.8)
[2024-05-03 11:01] LABS: Glucose, Whole Blood 292 mg/dL (60-115)
[2024-05-03 11:03] LABS: Procalcitonin 2.74 ng/mL
[2024-05-03 11:04] LABS: Appearance Urine Cloudy; Color Urine Dark Yellow; Glucose Urine UA 500 mg/dL (Negative); Leukocyte Esterase Urine Trace (Negative); Nitrite Urine Negative (Negative); Specific Gravity - Urine 1.015 (1.005-1.025); UMIC TRIGGER UA YES; Urine Blood Negative (Negative); Urine Ketones Trace mg/dL (Negative); Urine Protein 100 (2+) mg/dL (Neg-Trace)
[2024-05-03] MEDS: Insulin Glargine,Hum.rec.anlog 100 UNIT/ML 10 ML VIAL 16 UNIT SUBCUT (11:12)
[2024-05-03] MEDS: Insulin Lispro 100 UNIT/ML 3 ML VIAL SUBCUT ×2 (11:12→21:29)
[2024-05-03] MEDS: Atorvastatin Calcium 80 MG TABLET PO (11:13)
[2024-05-03] MEDS: Aspirin 81 MG TAB.CHEW PO (11:13)
[2024-05-03] MEDS: Montelukast Sodium 10 MG TABLET PO (11:13)
[2024-05-03 11:39] LABS: Bacteria Urine None Seen (None Seen); Granular Casts Urine Present; Other Crystals Urine Present; RBC Urine 0-2 /HPF (0-2); WBC Urine 0-5 /HPF (0-5)
[2024-05-03 12:02] LABS: VBG Base Excess 1.7 mmol/L; VBG HCO3 23 mmol/L (22-26); VBG pCO2 29 mmHg; VBG pH 7.51 (7.32-7.43); VBG pO2 90 mmHg
[2024-05-03 12:21] LABS: Venous Blood Gas Refer to POC result
--- NOTE | 2024-05-03 14:47 | MHC.CLN ---
RE: CONSULT PT WITH INCREASED NUTRITION RISK R/T PRESSURE INJURY PT IS CURRENTLY NPO WHEN DIET ADVANCES; RECOMMEND ADDING ENSURE MAX BID TO PROMOTE WOUND HEALING SUPP TO PROVIDE 300KCLAS, 60G PROTEIN MONITOR PO INTAKE AND ENCOURAGE SUPPLEMENTS SEE ALSO FULL CLINICAL NUTRITION ASSESSMENT
--- NOTE | 2024-05-03 15:06 | MHC.CM.PN ---
Per rounds and EMR review, pt is not ready for DC. Pt. has said he wants to go home at DC, referrals out for VNA. PT rec STR and notes state increased confusion today. STR referrals have been updated.
[2024-05-03 16:12] LABS: Glucose, Whole Blood 128 mg/dL (60-115)
--- NOTE | 2024-05-03 16:30 | HO.WOUND ---
Wound Consult: Initial 83yr old? male admitted to [facility] on 04/23/24 - See progress notes and H&P for detailed history.? Wound consult placed for coccyx wound.? Patient agreeable to assessment and photo documentation.? Patient noted for diffuse skin rash - dry peeling epidermal layer. dry scabed sites in various locations not consistent with shingles, will defer to provider for evaluation. however there are no open wounds and topical treatment may consist of moisture donating lotions / cream or ointments such as Eucerin or Aquaphor. Sacrom / Coccyx Etiology: ??MASD Measurements:7cm x 4cm x 0.2cm Wound Bed: red pink moist wound bedwith thin yellow slough noted Drainage / Odor: scant drainage noted - no odor Edges: ?Mirrored to gluteal fold Anette wound: ?dry peeling epidermal layer - No Induration, Fluctuance or Warmth noted Pain: tenderness when cleansing Goals of Treatment: ? Off load pressure and traid to allow for autolytic healing and protect from friction and moisture. Scrotum and penis noted for MASD as well - red blanchable tissue - with fissure like cracks revealing partial thickness tissue loss. Barrier cream applied. Consider cleansing with Bonny spray to provide cleansing and barrier in one application. Recommendations: 1. Turn and Reposition every 2 hours and as needed for patient comfort.? Use pillows or wedges to support off loading positions. 2. Off Load all bony prominences with use of pillows and heel boots if needed.? Apply Preventative foams where needed. ? 3. Monitor for incontinence and moisture control, use barrier creams when needed for prevention and treatment. 4. Provide adequate and supplemental nutrition.? 5. Order low air loss mattress. 6. When applicable maintain blood glucose levels per Providers order. 7. Coccyx / Sacrum - Off Load Pressure - Cleanse with PH balance spray or wipes, pat dry. ?Apply thin layer of Triad to wound bed - only pat and dab no scrub and rub when soiling occurs. Reapply thin layer PRN after each episode of incontinence. 8. Penis and Scrotum - Consider cleansing with Bonny spray to provide cleansing and barrier in one application. 8. Diffuse Rash - Provider to order topical cream such as eucerin from pharmacy. Re-consult wound care Nurse for wound deterioration or wound changes.
--- NOTE | 2024-05-03 17:56 | PC.NURSE ---
Patient's daughter called stating she will be having a procedure for kidney stones tomorrow. She requests patient's son He Blakely ([phone]) to be contact in case of emergency and she is not able to answer secondary to the procedure.
[2024-05-03 21:21] LABS: Glucose, Whole Blood 188 mg/dL (60-115)
[2024-05-03] MEDS: hydrALAZINE HCl 25 MG TABLET PO (21:29)
[2024-05-04 03:22] VITALS: BP 108/56; PULSE 76; RESP 18; TEMP 36.6; O2SAT 95
[2024-05-04] MEDS: Heparin Sodium,Porcine 5,000 UNIT/ML VIAL 5000 UNIT SUBCUT ×2 (03:26→16:28)
--- NOTE | 2024-05-04 06:20 | PC.NURSE ---
Pt AOx1-2, it waxes and wanes along w/his lethargy. He will awaken to his name being spoken, he has been cooperative this shift. Pt has been anuric. He has been NPO since 0000 for HD cath placement. Call bhatti within reach, bed alarm on, camera in room.
[2024-05-04 07:08] LABS: Glucose, Whole Blood 217 mg/dL (60-115)
[2024-05-04 07:11] VITALS: BP 114/58; PULSE 83; RESP 20; TEMP 36.3; O2SAT 96
[2024-05-04 07:29] LABS: Anion Gap 19 (12-20); Blood Urea Nitrogen 41 mg/dL (9-16); Calcium 9.1 mg/dL (8.4-10.2); Carbon Dioxide 22 mmol/L (22-29); Chloride 102 mmol/L (96-108); Creatinine Clr Calc Pharmacy 12.9; Estimated Glomerular Filt Rate 15; Glucose Random 230 mg/dL (60-115); Potassium 3.9 mmol/L (3.3-5.1); Sodium 139 mmol/L (135-145)
[2024-05-04 07:35] LABS: B Type Natriuretic Peptide 3639 pg/mL (<100)
[2024-05-04 08:33] LABS: Alanine Aminotransferase 76 U/L (0-40); Albumin Level 3.1 g/dL (3.5-5.0); Alkaline Phosphatase 521 U/L (39-117); Aspartate Amino Transferase 56 U/L (5-37); Bilirubin Direct 1.2 mg/dL (0.0-0.5); Bilirubin Total 2.1 mg/dL (0.0-1.0); Total Protein 6.4 g/dL (6.5-8.0)
--- NOTE | 2024-05-04 08:45 | P.PNNP_ITS ---
Subjective Subjective Date of Service: 05/04/24 Principal diagnosis: CHF exacerbation Interval history: 83 year old man with medical history of HFrEF (EF 35-40%), aortic valve replacement, DMII, HTN, COPD (pt reports on 2L NC intermittently at home), CKD stage 4 (reports follows Dr Nguyen as an outpatient), who presented to the hospital with acute hypoxic respiratory failure 2/2 CHF exacerbation and PNA. nephrology consulted for KAILEY present on admission pt had temporary HD catheter placed on Saturday 04/28 due to uremic symptoms including nausea and myoclonus, breathing also uncomfortable Started intermittent HD on 04/28 pt's creatinine did improve slightly after first HD sessions to 3.57 but continues to trend up between sessions, GFR remains between 9 and 15 pt agreeable yesterday to permacath placement to continue HD upon discharge home; this is being placed today Had last HD session yesterday, 05/03 Of note pt lethargic and confused yesterday, cultures drawn, CT head negative for acute change, chest XR negative for acute process Today pt is tired but alert and responding to questions appropriately this a.m. white count is normal, blood pressures stable no other new signs/concerns for infection today no urine output recorded for last 48 hours, pt states he is not sure the last time he passed urine per Cardiology, volume status requires management by dialysis. Physical Exam 2 Vital Signs: Vital Signs: Last Vital Signs Temp 97.3 F 05/04/24 07:11 Pulse 83 05/04/24 07:11 Resp 20 05/04/24 07:11 BP 114/58 L 05/04/24 07:11 Pulse Ox 96 05/04/24 07:11 O2 Del Method Room Air 05/04/24 07:11 O2 Flow Rate 2 04/28/24 07:44 BMI result Body Mass Index 19.8 Const: General: lethargic Orientation/consciousness: lethargic Neck: Neck: Yes no JVD Resp: Effort & Inspection: labored Auscultation: clear to auscultation bilaterally Cardio: Jugular venous distension: no JVD Rate: regular rate Rhythm: r egular rhythm Heart sounds: S1 normal heart sound present and S2 normal heart sound present GI: Other: Reports nausea Palpation (GI): Soft to palpation and nontender Rectal Exam - Male: No tenderness : General: Yes no CVA tenderness Back/Spine/Pelvis: Back: no CVA tenderness Skin: Rashes: no rashes Neuro: Other: myoclonus in upper extremities. Extrem: General: Yes normal to inspection and No edema Objective Data Labs 05/03/24 10:42 05/04/24 06:51 Labs: Laboratory Results - last 24 hr 04/28/24 05/03/24 05/03/24 06:21 06:45 10:15 WBC RBC Hgb Hct MCV MCH MCHC RDW Plt Count MPV Absolute Nucleated RBC Nucleated RBC % (auto) VBG pH VBG pCO2 VBG pO2 VBG HCO3 VBG O2 Saturation VBG Base Excess Sodium Potassium Chloride Carbon Dioxide Anion Gap BUN Creatinine Estim Creat Clear Calc Estimated GFR POC Glucose Random Glucose Calcium Total Bilirubin Direct Bilirubin AST ALT Alkaline Phosphatase C-Reactive Protein 5.51 H B-Natriuretic Peptide Total Protein Albumin Mitochondrial AB Titer TNP Procalcitonin 2.74 Urine Color Dark Yellow Urine Appearance Cloudy Urine pH 5.0 Ur Specific [place] 1.015 Urine Protein 100 (2+) H Urine Glucose (UA) 500 H Urine Ketones Trace Urine Blood Negative Urine Nitrite Negative Ur Leukocyte Esterase Trace H Urine RBC 0-2 Urine WBC 0-5 Ur Squamous Epith Cells 3-5 Other Crystals Present Urine Bacteria None Seen Hyaline Casts 3-5 Granular Casts Present Urine Yeast Present 05/03/24 05/03/24 05/03/24 10:42 10:57 11:53 WBC 8.4 RBC 4.55 L Hgb 11.5 L Hct 36.4 L MCV 80.0 MCH 25.3 L MCHC 31.6 RDW 18.8 H Plt Count 124 L MPV 9.4 Absolute Nucleated RBC 0.000 Nucleated RBC % (auto) 0.0 VBG pH 7.51 H VBG pCO2 29 VBG pO2 90 VBG HCO3 23 VBG O2 Saturation 99.0 VBG Base Excess 1.7 Sodium Potassium Chloride Carbon Dioxide Anion Gap BUN Creatinine Estim Creat Clear Calc Estimated GFR POC Glucose 292 H Random Glucose Calcium Total Bilirubin Direct Bilirubin AST ALT Alkaline Phosphatase C-Reactive Protein B-Natriuretic Peptide Total Protein Albumin Mitochondrial AB Titer Procalcitonin Urine Color Urine Appearance Urine pH Ur Specific [place] Urine Protein Urine Glucose (UA) Urine Ketones Urine Blood Urine Nitrite Ur Leukocyte Esterase Urine RBC Urine WBC Ur Squamous Epith Cells Other Crystals Urine Bacteria Hyaline Casts Granular Casts Urine Yeast 05/03/24 05/03/2405/04/24 16:08 21:18 06:51 WBC RBC Hgb Hct MCV MCH MCHC RDW Plt Count MPV Absolute Nucleated RBC Nucleated RBC % (auto) VBG pH VBG pCO2 VBG pO2 VBG HCO3 VBG O2 Saturation VBG Base Excess Sodium 139 Potassium 3.9 Chloride 102 Carbon Dioxide 22 Anion Gap 19 BUN 41 H Creatinine 3.94 H Estim Creat Clear Calc 12.9 Estimated GFR 15 POC Glucose 128 H 188 H Random Glucose 230 H Calcium 9.1 Total Bilirubin 2.1 H Direct Bilirubin 1.2 H AST 56 H ALT 76 H Alkaline Phosphatase 521 H C-Reactive Protein B-Natriuretic Peptide 3639 H Total Protein 6.4 L Albumin 3.1 L Mitochondrial AB Titer Procalcitonin Urine Color Urine Appearance Urine pH Ur Specific [place] Urine Protein Urine Glucose (UA) Urine Ketones Urine Blood Urine Nitrite Ur Leukocyte Esterase Urine RBC Urine WBC Ur Squamous Epith Cells Other Crystals Urine Bacteria Hyaline Casts Granular Casts Urine Yeast 05/04/24 07:03 WBC RBC Hgb Hct MCV MCH MCHC RDW Plt Count MPV Absolute Nucleated RBC Nucleated RBC % (auto) VBG pH VBG pCO2 VBG pO2 VBG HCO3 VBG O2 Saturation VBG Base Excess Sodium Potassium Chloride Carbon Dioxide Anion Gap BUN Creatinine Estim Creat Clear Calc Estimated GFR POC Glucose 217 H Random Glucose Calcium Total Bilirubin Direct Bilirubin AST ALT Alkaline Phosphatase C-Reactive Protein B-Natriuretic Peptide Total Protein Albumin Mitochondrial AB Titer Procalcitonin Urine Color Urine Appearance Urine pH Ur Specific [place] Urine Protein Urine Glucose (UA) Urine Ketones Urine Blood Urine Nitrite Ur Leukocyte Esterase Urine RBC Urine WBC Ur Squamous Epith Cells Other Crystals Urine Bacteria Hyaline Casts Granular Casts Urine Yeast Microbiology Microbiology Results: Microbiology 04/26/24 22:06 Blood - Venous Blood Culture - Final No growth after 5 days. 04/26/24 22:06 Blood - Venous Blood Culture - Final No growth after 5 days. 04/23/24 10:53 Blood - Venous Blood Culture - Final No growth after 5 days. 04/23/24 10:45 Blood - Venous Blood Culture - Final No growth after 5 days. Procedures Date of Service Date of Service: 05/04/24 Assessment & Plan Assessment and plan (1) CKD (chronic kidney disease) stage 4, GFR 15-29 ml/min: Status: Acute (2) Pulmonary edema: Status: Acute (3) Congestive heart failure: Status: Acute (4) KAILEY (acute kidney injury): Status: Acute Plan initially CKD stage 4 with KAILEY secondary to renal hypoperfusion 2/2 CHF exacerbation (likely precipitated by PNA) ESRD patient on HD pt's goal is to go home Permacath placement today for ongoing HD after discharge home (replace temporary right IJ HD line) Plan for HD Wednesday, Wednesday, Wednesday Pt has been maintaining stable blood pressures anemia is stable H&H 11.5/36.4 corrected calcium normal at 9.1 today, phosphorous normal at 4.0 10/8; will check phosphorous levels tomorrow a.m. pt currently anuric Discussed with Dr Zuniga Time Spent With Patient Time: Total time managing care of this patient today ____ minutes. Progress Note: Quality Stroke Does the patient have a stroke diagnosis?: No
--- NOTE | 2024-05-04 08:58 | HO.WOUND ---
Wound Consult: Follow up 83yr old? male admitted to [facility] [place] on 04/23/24 - See progress notes and H&P for detailed history.? Wound consult follow up for Skin Rash. Spoke to Dr. Saucedo today regarding concern for skin peeling and rash - per discussion he will follow up and consider ID consult for rash. Of note patient was not able to report if the sites were itching or causing any discomfort at yesterdays assessment he seemed unaware of the sites. Details from previous assessment: Patient noted for diffuse skin rash - dry peeling epidermal layer. dry scabbed sites in various locations not consistent with shingles, will defer to provider for evaluation. Palms free of injury or rash at the time of my consult. however there are no open wounds and topical treatment may consist of moisture donating lotions / cream or ointments such as Eucerin or Aquaphor. Sacrom / Coccyx Etiology: ??MASD Measurements:7cm x 4cm x 0.2cm Wound Bed: red pink moist wound bedwith thin yellow slough noted Drainage / Odor: scant drainage noted - no odor Edges: ?Mirrored to gluteal fold Anette wound: ?dry peeling epidermal layer - No Induration, Fluctuance or Warmth noted Pain: tenderness when cleansing Goals of Treatment: ? Off load pressure and traid to allow for autolytic healing and protect from friction and moisture. Scrotum and penis noted for MASD as well - red blanchable tissue - with fissure like cracks revealing partial thickness tissue loss. Barrier cream applied. Consider cleansing with Bonny spray to provide cleansing and barrier in one application. Recommendations: 1. Turn and Reposition every 2 hours and as needed for patient comfort.? Use pillows or wedges to support off loading positions. 2. Off Load all bony prominences with use of pillows and heel boots if needed.? Apply Preventative foams where needed. ? 3. Monitor for incontinence and moisture control, use barrier creams when needed for prevention and treatment. 4. Provide adequate and supplemental nutrition.? 5. Order low air loss mattress. 6. When applicable maintain blood glucose levels per Providers order. 7. Coccyx / Sacrum - Off Load Pressure - Cleanse with PH balance spray or wipes, pat dry. ?Apply thin layer of Triad to wound bed - only pat and dab no scrub and rub when soiling occurs. Reapply thin layer PRN after each episode of incontinence. 8. Penis and Scrotum - Consider cleansing with Bonny spray to provide cleansing and barrier in one application. 8. Diffuse Rash - Provider to order topical cream such as eucerin from pharmacy. Re-consult wound care Nurse for wound deterioration or wound changes.
[2024-05-04] MEDS: Insulin Glargine,Hum.rec.anlog 100 UNIT/ML 10 ML VIAL 16 UNIT SUBCUT (09:47)
[2024-05-04] MEDS: 0.9 % Sodium Chloride Flush 3 ML SYRINGE IVFLUSH ×3 (09:49→21:43)
--- NOTE | 2024-05-04 11:56 | P.PNIM_ITS ---
Subjective Subjective Date of Service: 05/04/24 Interval History: mental status improved, awake and no complaints no dyspnea no chest pain NPO for Permacath Review of Systems Review of Systems: Yes all other systems are reviewed and are negative Physical Exam 2 Vital Signs: Vital Signs: Last Vital Signs Temp 97.3 F 05/04/24 07:11 Pulse 83 05/04/24 07:11 Resp 20 05/04/24 07:11 BP 114/58 L 05/04/24 07:11 Pulse Ox 96 05/04/24 07:11 O2 Del Method Room Air 05/04/24 07:11 O2 Flow Rate 2 04/28/24 07:44 BMI result Body Mass Index 19.8 Gen: NAD HEENT: sclera anicteric, moist mucus membranes Neck: supple, RIJ temporary dialysis catheter Lungs: clear bilaterally Heart: regular, tachycardic, 2/6 systolic murmur at base Abd: soft, non-tender, non-distended, no Stoddard sign Ext: no edema Skin: warm/well-perfused Neuro: awake/oriented x3, no focal findings Psych: appropriate affect Objective Data Active Medications Acetaminophen (Acetaminophen 325 Mg Tablet) 650 mg PO Q6H PRN PRN Reason: Pain, Mild (Pain Scale 1-3), fever or headache Last Admin: 04/28/24 08:20 Dose: 650 mg Documented By: JANETT Albuterol Sulfate (Albuterol Sulfate 90 Mcg 8 Gm Inhaler) 2 puff INHALE Q6H PRN PRN Reason: wheezing Aspirin (Aspirin 81 Mg Tab.Chew) 81 mg PO DAILY [facility] Last Admin: 05/03/24 11:13 Dose: 81 mg Documented By: LAUREANO Atorvastatin Calcium (Atorvastatin Calcium 80 Mg Tablet) 80 mg PO DAILY [facility] Last Admin: 05/03/24 11:13 Dose: 80 mg Documented By: LAUREANO Calcium Carbonate (Calcium Carbonate 750 Mg Tab.Chew) 750 mg PO Q4H PRN PRN Reason: Heartburn Last Admin: 04/27/24 16:03 Dose: 750 mg Documented By: IKE Glucose (Glucose Gel 15 Gm Gel..Gram.) 15 gm PO Q15M PRN; Protocol PRN Reason: per Hypoglycemia Standing Ord. Heparin Sodium (Porcine) (Heparin Sodium,Porcine 5,000 Unit/Ml Vial) 5,000 unit SUBCUT Q12H [facility] Last Admin: 05/04/24 03:26 Dose: 5,000 unit Documented By: CHANNING Heparin Sodium (Porcine) (Heparin Sodium,Porcine 5,000 Unit/Ml Vial) 5,000 unit INTRACATH MOWEFR@1645 [facility] Last Admin: 05/04/24 07:21 Dose: Not Given Documented By: MALIKA Non-Admin Reason: to be given in dialysis Heparin Sodium (Porcine) (Heparin Sodium,Porcine 5,000 Unit/Ml Vial) 5,000 unit INTRACATH MOWEFR@1645 [facility] Last Admin: 05/04/24 07:21 Dose: Not Given Documented By: MALIKA Non-Admin Reason: to be given in dialysis Heparin Sodium (Porcine) (Heparin Sodium,Porcine 5,000 Unit/Ml Vial) 5,000 unit INTRACATH MOWEFR@1645 [facility] Last Admin: 05/04/24 07:22 Dose: Not Given Documented By: MALIKA Non-Admin Reason: to be given in dialysis Heparin Sodium (Porcine) (Heparin Sodium,Porcine 5,000 Unit/Ml Vial) 5,000 unit INTRACATH MOWEFR@1645 [facility] Last Admin: 05/04/24 07:22 Dose: Not Given Documented By: MALIKA Non-Admin Reason: to be given in dialysis Hydralazine HCl (Hydralazine Hcl 25 Mg Tablet) 25 mg PO TID [facility]; Protocol Last Admin: 05/03/24 21:29 Dose: 25 mg Documented By: CHANNING Dextrose (D10) 250 mls @ 750 mls/hr IV Q15M PRN; Protocol PRN Reason: per Hypoglycemia Standing Ord. Insulin Glargine (Insulin Glargine,Hum.Rec.Anlog 100 Unit/Ml 10 Ml Vial) 16 unit SUBCUT DAILY [facility] Last Admin: 05/04/24 09:47 Dose: 16 unit Documented By: MALIKA Insulin Human Lispro (Insulin Lispro 100 Unit/Ml 3 Ml Vial) 0 unit SUBCUT QIDACHS [facility]; Protocol Last Admin: 05/04/24 09:49 Dose: Not Given Documented By: MALIKA Non-Admin Reason: NPO Isosorbide Mononitrate (Isosorbide Mononitrate 30 Mg Tab.Er.24h) 30 mg PO DAILY [facility]; Protocol Last Admin: 05/03/24 16:50 Dose: Not Given Documented By: MELODY-TAMIA Non-Admin Reason: NPO Magnesium Hydroxide (Milk Of Magnesia 30 Ml Oral.Susp) 30 ml PO DAILY PRN PRN Reason: Constipation Melatonin (Melatonin 3 Mg Tablet) 6 mg PO BEDTIME PRN PRN Reason: Insomnia Last Admin: 04/26/24 20:53 Dose: 6 mg Documented By: LIONEL Metoprolol Succinate (Metoprolol Succinate Er 25 Mg Tab.Er.24h) 25 mg PO DAILY [facility]; Protocol Last Admin: 05/03/24 16:50 Dose: Not Given Documented By: MELODY-TAMIA Non-Admin Reason: NPO Montelukast Sodium (Montelukast Sodium 10 Mg Tablet) 10 mg PO DAILY [facility] Last Admin: 05/03/24 11:13 Dose: 10 mg Documented By: LAUREANO Nitroglycerin (Nitroglycerin 0.4 Mg Tab.Subl) 0.4 mg SUBLINGUAL Q5MX3 PRN PRN Reason: Chest Pain Last Admin: 04/29/24 03:54 Dose: 0.4 tab Documented By: CHRISTINA Ondansetron HCl (Ondansetron Hcl 4 Mg/2 Ml Vial) 4 mg IVPUSH Q8H PRN PRN Reason: Nausea and Vomiting Last Admin: 04/30/24 09:42 Dose: 4 mg Documented By: TANVIR Sodium Chloride (0.9 % Sodium Chloride Flush 3 Ml Syringe) 3 ml IVFLUSH QSHIFT [facility] Last Admin: 05/04/24 09:49 Dose: 3 ml Documented By: GOODMA Labs 05/03/24 10:42 05/04/24 06:51 Labs: Laboratory Results - last 24 hr 04/28/24 05/03/24 05/03/24 06:21 11:53 16:08 VBG pH 7.51 H VBG pCO2 29 VBG pO2 90 VBG HCO3 23 VBG O2 Saturation 99.0 VBG Base Excess 1.7 Anion Gap Estim Creat Clear Calc Estimated GFR POC Glucose 128 H Random Glucose Calcium Total Bilirubin Direct Bilirubin AST ALT Alkaline Phosphatase B-Natriuretic Peptide Total Protein Albumin Mitochondrial AB Titer TNP 05/03/24 05/04/24 05/04/24 21:18 06:51 07:03 VBG pH VBG pCO2 VBG pO2 VBG HCO3 VBG O2 Saturation VBG Base Excess Anion Gap 19 Estim Creat Clear Calc 12.9 Estimated GFR 15 POC Glucose 188 H 217 H Random Glucose 230 H Calcium 9.1 Total Bilirubin 2.1 H Direct Bilirubin 1.2 H AST 56 H ALT 76 H Alkaline Phosphatase 521 H B-Natriuretic Peptide 3639 H Total Protein 6.4 L Albumin 3.1 L Mitochondrial AB Titer Assessment and Plan (1) CHF exacerbation: Status: Acute Plan d12 83yo M with CAD s/p CABG, bioprosthetic aortic valve, CKD4, DM2, HTN, DM presenting with dyspnea, admitted for hypoxia due to CHF exacerbation + PNA and developed KAILEY and now requiring HD KAILEY/CKD4 metabolic acidosis - dialyzed 04/28, 04/29, 05/01 and 05/03; Nephrology following; convert to Permacath this AM; outpt HD placement AHRF due to acute-chronic HFrEF prosthetic aortic valve stenosis - volume management by HD - TTE 04/25/24: - Normal left ventricular cavity size. There is moderately increased left ventricular wall thickness. The left ventricular systolic function is severely decreased. The visually estimated ejection fraction is between 15-20%. - Elevated filling pressures. - Mildly increased right ventricular cavity size. There is moderately decreased right ventricular systolic function. - The left atrium is severely dilated. - There is moderate calcification of the aortic valve. There is moderate aortic valve stenosis. - Moderately elevated right atrial pressure. Moderate pulmonary hypertension is present. - There is mild dilatation of the ascending aorta measuring 4.10 cm. - Cardiology consulted restart metoprolol succinate; continue Imdur; added hydralazine recurrent fever - initially felt to have pneumonia but no infiltrate on CXR. UA negative, RPP negative, abd CT with cardiomegaly, splenomegaly, BPH. BCx negative. Abd US with thickened gallbladder wall. GI consulted. HIDA negative. Monitor LFTs- improving. ID consulted as well. No fever since 04/27/24 @346. Suspect LFT elevations were due to hepatic congestion. Could have been drug fever from gabapentin, which has been discontinued tremors - likely gabapentin excess; discontinued and tremors resolved troponin elevation - due to CHF; no ischemic EKG changes; no cardiac intervention planned hyperK, mild - resolved HTN - hydralazine + metoprolol succinate + Imdur CAD - atorvastatin DM2 - hernandez-dose lispro COPD/asthma without acute exacerbation - prn albuterol VTE ppx - UFH dispo - declines STR; plan home with VNA, will need outpt HD placement In my clinical judgment, the patient requires continued inpatient hospitalization for the following reasons: KAILEY requiring HD, needs line placement Total time managing care of this patient today: 45 minutes. Quality Stroke Does the patient have a stroke diagnosis?: No VTE Prior VTE?: No VTE Risk Level:: Medical - moderate - high VTE Device Contraindication: Treatment Not Indicated VTE Drug Contraindication: N/A - Med Ordered
[2024-05-04 12:00] VITALS: BP 131/60; PULSE 71; RESP 20; TEMP 36.4; O2SAT 99
[2024-05-04 12:13] LABS: Glucose, Whole Blood 254 mg/dL (60-115)
--- NOTE | 2024-05-04 12:34 | MHC.CM.PN ---
Second IMM 05/04/24, Anticipate DC for pt. tomorrow. CM spoke with pt. to ask if he will go to [facility] which is what PT is recommending. He said that he does not want to go to STR, and that he has help at home, and nurses that come to him there. CM called is son He, who is crew person for today while pt.'s dtr is having surgery. He said that he will speak with pt. and his sister and speak with CM tomorrow re: DCP.
[2024-05-04] MEDS: Isosorbide Mononitrate 30 MG TAB.ER.24H PO (12:54)
[2024-05-04] MEDS: Metoprolol Succinate ER 25 MG TAB.ER.24H PO (12:54)
[2024-05-04] MEDS: Montelukast Sodium 10 MG TABLET PO (12:54)
[2024-05-04] MEDS: Atorvastatin Calcium 80 MG TABLET PO (12:55)
[2024-05-04] MEDS: Aspirin 81 MG TAB.CHEW PO (12:55)
[2024-05-04] MEDS: Insulin Lispro 100 UNIT/ML 3 ML VIAL SUBCUT ×3 (12:55→21:43)
[2024-05-04] MEDS: hydrALAZINE HCl 25 MG TABLET PO ×2 (12:55→21:43)
--- NOTE | 2024-05-04 13:58 | PM.PROC ---
Brief Operative Note Date of procedure: 05/04/24 Pre-op diagnosis: Needs long term care phlebotomist iv access for HD Post-op diagnosis: same Procedure: Right IJ 23 cm Permacath placed using US and FL. Tip at cavoatrial junction. Ok for use. Right IJ Angel removed. No immediate complications.
[2024-05-04 15:35] LABS: Glucose, Whole Blood 189 mg/dL (60-115)
[2024-05-04 16:00] VITALS: BP 103/57; PULSE 74; RESP 19; TEMP 36.7; O2SAT 95
[2024-05-04 19:54] VITALS: BP 103/57; PULSE 75; RESP 19; TEMP 36.7; O2SAT 99
[2024-05-04 21:43] LABS: Glucose, Whole Blood 163 mg/dL (60-115)
[2024-05-04 21:43] LABS: Glucose, Whole Blood 169 mg/dL (60-115)
[2024-05-05] VITALS: BP 89/51; PULSE 85; RESP 20; TEMP 36.6; O2SAT 96
[2024-05-05 00:36] VITALS: BP 98/56
[2024-05-05 03:28] VITALS: BP 109/65; PULSE 81; RESP 20; TEMP 36.5; O2SAT 99
[2024-05-05] MEDS: Heparin Sodium,Porcine 5,000 UNIT/ML VIAL 5000 UNIT SUBCUT ×2 (03:45→17:09)
[2024-05-05 06:40] LABS: Hematocrit 38.1 % (42.0-52.0); Hemoglobin 11.9 g/dl (14.0-18.0); Mean Corpuscular HGB Conc 31.2 g/dl (31.0-36.0); Mean Corpuscular Hemoglobin 24.9 pg (27.0-33.0); Mean Corpuscular Volume 79.7 fL (80.0-98.0); Mean Platelet Volume 9.6 fL (9.4-12.4); Platelet Count 163 X10*3/uL (160-400); Red Blood Count 4.78 X10*6/uL (4.60-5.80); Red Cell Distribution Width 18.5 % (11.0-16.0); White Blood Count 10.2 X10*3/uL (4.8-10.8)
[2024-05-05 07:15] LABS: Anion Gap 22 (12-20); Blood Urea Nitrogen 63 mg/dL (9-16); Calcium 8.5 mg/dL (8.4-10.2); Carbon Dioxide 17 mmol/L (22-29); Chloride 99 mmol/L (96-108); Glucose Random 186 mg/dL (60-115); Phosphorus 6.1 mg/dL (2.7-4.5); Sodium 134 mmol/L (135-145)
[2024-05-05 07:23] LABS: Glucose, Whole Blood 194 mg/dL (60-115)
[2024-05-05 07:34] LABS: Creatinine Clr Calc Pharmacy 9.5; Estimated Glomerular Filt Rate 10
[2024-05-05 08:00] VITALS: BP 96/53; PULSE 77; RESP 20; TEMP 36.2; O2SAT 98
[2024-05-05 08:22] VITALS: BP 96/53; PULSE 77; O2SAT 98
[2024-05-05 08:34] LABS: Procalcitonin 4.41 ng/mL
[2024-05-05] MEDS: 0.9 % Sodium Chloride Flush 3 ML SYRINGE IVFLUSH (08:44)
--- NOTE | 2024-05-05 09:44 | P.PNNP_ITS ---
Subjective Subjective Date of Service: 05/05/24 Principal diagnosis: CHF exacerbation Interval history: 83 year old man with medical history of HFrEF (EF 35-40%), aortic valve replacement, DMII, HTN, COPD (pt reports on 2L NC intermittently at home), CKD stage 4 (reports follows Dr Nguyen as an outpatient), who presented to the hospital with acute hypoxic respiratory failure 2/2 CHF exacerbation and PNA. nephrology consulted for KAILEY present on admission pt had temporary HD catheter placed on Saturday 04/28 due to uremic symptoms including nausea and myoclonus, breathing also uncomfortable Started intermittent HD on 04/28 pt's creatinine did improve slightly after first HD sessions to 3.57 but continues to trend up between sessions, GFR remains between 9 and 15 pt agreeable yesterday to permacath placement to continue HD upon discharge home; this is being placed today Had last HD session yesterday, 05/03 Of note pt lethargic and confused yesterday, cultures drawn, CT head negative for acute change, chest XR negative for acute process Today pt is tired but alert and responding to questions appropriately this a.m. white count is normal, blood pressures stable no other new signs/concerns for infection today no urine output recorded for last 48 hours, pt states he is not sure the last time he passed urine per Cardiology, volume status requires management by dialysis. Physical Exam 2 Vital Signs: Vital Signs: Last Vital Signs Temp 97.2 F 05/05/24 08:00 Pulse 77 05/05/24 08:22 Resp 20 05/05/24 08:00 BP 96/53 L 05/05/24 08:22 Pulse Ox 98 05/05/24 08:22 O2 Del Method Nasal Cannula 05/05/24 08:00 O2 Flow Rate 2 05/05/24 08:00 BMI result Body Mass Index 19.8 Const: General: alert and awake Neck: Neck: Yes no JVD Resp: Effort & Inspection: labored Auscultation: clear to auscultation bilaterally Cardio: Jugular venous distension: no JVD Rate: regular rate Rhythm: r egular rhythm Heart sounds: S1 normal heart sound present and S2 normal heart sound present GI: Other: Reports nausea Palpation (GI): Soft to palpation and nontender Rectal Exam - Male: No tenderness : General: Yes no CVA tenderness Back/Spine/Pelvis: Back: no CVA tenderness Skin: Rashes: no rashes Neuro: Other: no myoclonus or tremors Extrem: General: Yes normal to inspection and No edema Objective Data Labs 05/05/24 06:12 05/05/24 06:12 Labs: Laboratory Results - last 24 hr 05/04/24 05/04/24 05/04/24 12:09 15:30 21:04 WBC RBC Hgb Hct MCV MCH MCHC RDW Plt Count MPV Absolute Nucleated RBC Nucleated RBC % (auto) Sodium Potassium Chloride Carbon Dioxide Anion Gap BUN Creatinine Estim Creat Clear Calc Estimated GFR POC Glucose 254 H 189 H 163 H Random Glucose Calcium Phosphorus Procalcitonin 05/04/24 05/05/24 05/05/24 21:39 06:12 07:17 WBC 10.2 RBC 4.78 Hgb 11.9 L Hct 38.1 L MCV 79.7 L MCH 24.9 L MCHC 31.2 RDW 18.5 H Plt Count 163 D MPV 9.6 Absolute Nucleated RBC 0.000 Nucleated RBC % (auto) 0.0 Sodium 134 L Potassium 4.0 Chloride 99 Carbon Dioxide 17 L Anion Gap 22 H BUN 63 H Creatinine 5.34 H* Estim Creat Clear Calc 9.5 Estimated GFR 10 POC Glucose 169 H 194 H Random Glucose 186 H Calcium 8.5 D Phosphorus 6.1 H Procalcitonin 4.41 Microbiology Microbiology Results: Microbiology 05/03/24 11:44 Blood - Venous Blood Culture - Preliminary No growth after 24 hours. 05/03/24 10:42 Blood - Central Line Blood Culture - Preliminary No growth after 24 hours. 05/03/24 10:15 Urine Catheterized - Straight Catheter Urine Culture - Preliminary Yeast 04/26/24 22:06 Blood - Venous Blood Culture - Final No growth after 5 days. 04/26/24 22:06 Blood - Venous Blood Culture - Final No growth after 5 days. 04/23/24 10:53 Blood - Venous Blood Culture - Final No growth after 5 days. 04/23/24 10:45 Blood - Venous Blood Culture - Final No growth after 5 days. 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 Progress Note: Quality Stroke Does the patient have a stroke diagnosis?: No
[2024-05-05] MEDS: Insulin Glargine,Hum.rec.anlog 100 UNIT/ML 10 ML VIAL 8 UNIT SUBCUT (11:18)
--- NOTE | 2024-05-05 11:49 | P.DS_ITS ---
DS: Providers Provider Date of Service: 05/05/24 Date of admission: 04/23/24 16:01 Date of discharge: 05/05/24 Primary care physician: Antony Pappas MD Consults: 04/23/24 16:01 Consult to Cardiology Routine Consulting Provider: [facility] Reason for consultation: CHF 04/24/24 09:42 Consult to Nephrology Routine Consulting Provider: [facility] Reason for consultation: worsening kailey 04/27/24 12:21 Consult to Infectious Diseases Routine Consulting Provider: [facility] Reason for consultation: fever Has provider been notified: No 04/27/24 17:54 Consult to Gastroenterology Routine Consulting Provider: Jm Ng Reason for consultation: elevtaed bili Has provider been notified: No 05/02/24 08:36 Consult to Wound Care Routine Reason for consultation: coccyx wound Has provider been notified: Yes DS: Diagnosis Discharge Diagnosis (1) Pulmonary edema: Status: Acute (2) Acute worsening of stage 4 chronic kidney disease: Status: Acute (3) ESRD (end stage renal disease) on dialysis: Status: Acute (4) Acute on chronic HFrEF (heart failure with reduced ejection fraction): Status: Acute (5) Fever: Status: Resolved (6) Adverse effect of gabapentin: Status: Acute (7) Toxic metabolic encephalopathy: Status: Acute (8) Acute respiratory failure with hypoxia: Status: Acute DS: Summary Hospital Course Hospital Course: From the history and physical by the admitting hospitalist, Melissa De León NP, 04/23/24: 83-year-old man with a history of congestive heart failure, aortic valve replacement, diabetes mellitus, hypertension, COPD. He presented to the emergency department with mental status changes, lethargy. Patient was recently hospitalized at [facility] for shortness of breaths and weight gain. He was treated for congestive heart failure and treated with IV diuretics. He was discharged home with daughter. Apparently yesterday he became short of breath and developed a fever with a cough and increased swelling of lower extremities and reported feeling generally unwell few days. He became more lethargic today. In the ER, BNP was noted to be 12,068, troponin 141.1, EKG did not show any ischemic changes. Patient did have 1 reading of hypoxia with oxygen saturation of 89% 8 he was placed on 2 L of oxygen via nasal cannula. Chest x-ray showing central vascular congestion and mild pulmonary edema. Head CT negative for acute abnormality. In the ER, he received Tylenol per rectum, IV Lasix, Rocephin, azithromycin. Plan is to admit patient for further management and treatment of acute congestive heart failure. 83yo M with CAD s/p CABG, bioprosthetic aortic valve, CKD4, DM2, HTN, DM presenting with dyspnea, admitted for hypoxia due to CHF exacerbation + PNA; AMS; and KAILEY superimposed on CKD4. He was admitted to the telemetry unit and progressed to ESRD requiring HD. Hospital course by problem: KAILEY/CKD4 progressing to ESRD on HD - Nephrology consulted. Temporary dialysis catheter placed on 04/28 and he was dialyzed 04/28, 04/29, 05/01, and 05/03 without renal recovery. He was converted to a Permacath on 05/04 and dialyzed on 05/05. Outpatient HD placement through [facility] was secured. He was discharged to [facility] for short- term rehabilitation. AHRF due to acute-chronic HFrEF; prosthetic aortic valve stenosis - Cardiology consulted. - He became anuric and volume management was thus by dialysis. He was last dialyzed 05/05 and appeared euvolemic afterwards. - TTE 04/25/24: - Normal left ventricular cavity size. There is moderately increased left ventricular wall thickness. The left ventricular systolic function is severely decreased. The visually estimated ejection fraction is between 15-20%. - Elevated filling pressures. - Mildly increased right ventricular cavity size. There is moderately decreased right ventricular systolic function. - The left atrium is severely dilated. - There is moderate calcification of the aortic valve. There is moderate aortic valve stenosis. - Moderately elevated right atrial pressure. Moderate pulmonary hypertension is present. - There is mild dilatation of the ascending aorta measuring 4.10 cm. - BP was too low on hydralazine, so hydralazine was discontinued. Imdur continu ed; metoprolol succinate dose decreased from 50 to 25 mg/d. In the future, consider YANY-I/ARB since now on HD. Should follow up with his line staker at [facility] in 1 month. fever - Initially felt to have pneumonia but no infiltrate on CXR. UA negative, RPP negative, abd CT with cardiomegaly, splenomegaly, BPH. BCx negative. Abd US with thickened gallbladder wall. GI consulted. HIDA negative. ID consulted as well. No fever since 04/27/24 @346. Suspect LFT elevations were due to hepatic congestion. Could have been drug fever from gabapentin, which was discontinued. Procalcitonin elevated but likely due to renal failure as he had no evidence of bacterial infection. multiple pulmonary nodules ground-glass opacities of the lungs - CT of the chest showed some pulmonary edema. However, he also had some subtle groundglass opacities in the RUL and multiple bilateral solid pulonary nodules, including a 6mm solid nodule in the tremors - Also likely gabapentin excess; discontinued and tremors resolved toxic-metabolic encephalopathy - Due to hypoxia, gabapentin, and uremia; resolved as these other issues were addressed. DM2 - Dapagliflozin and glipizide discontinued; Tresiba changed to a lower dose of Lantus. Time Attestation Discharge Coordination Time (in mins): 45 Quality: Safe Use of Opioids Does Pt have an Active Cancer Diagnosis on the Problem List?: No Quality: Stroke Does the patient have a stroke diagnosis?: No Physical Exam Vital Signs: Vital Signs: Last Vital Signs Temp 97.2 F 05/05/24 08:00 Pulse 77 05/05/24 08:22 Resp 20 05/05/24 08:00 BP 96/53 L 05/05/24 08:22 Pulse Ox 98 05/05/24 08:22 O2 Del Method Nasal Cannula 05/05/24 08:00 O2 Flow Rate 2 05/05/24 08:00 BMI result Body Mass Index 19.8 Gen: NAD HEENT: sclera anicteric, moist mucus membranes Neck: supple, RIJ Permacath Lungs: clear bilaterally Heart: regular, tachycardic, 2/6 systolic murmur at base Abd: soft, non-tender, non-distended, no Stoddard sign Ext: no edema Skin: warm/well-perfused Neuro: awake/oriented x3, no focal findings Psych: appropriate affect DS: Data Data Completed and Pending Completed studies during hospitalization [Text1]: Laboratory Results WBC 10.2 X10*3/uL (4.8-10.8) 05/05/24 06:12 RBC 4.78 X10*6/uL (4.60-5.80) 05/05/24 06:12 Hgb 11.9 g/dl (14.0-18.0) L 05/05/24 06:12 Hct 38.1 % (42.0-52.0) L 05/05/24 06:12 MCV 79.7 fL (80.0-98.0) L 05/05/24 06:12 MCH 24.9 pg (27.0-33.0) L 05/05/24 06:12 MCHC 31.2 g/dl (31.0-36.0) 05/05/24 06:12 RDW 18.5 % (11.0-16.0) H 05/05/24 06:12 Plt Count 163 X10*3/uL (160-400) D 05/05/24 06:12 MPV 9.6 fL (9.4-12.4) 05/05/24 06:12 Immature Gran % (Auto) 1.0 % (0.0-0.4) H 04/30/24 10:17 Neut % (Auto) 62.7 % (45-73) 04/30/24 10:17 Lymph % (Auto) 18.1 % (20-40) L 04/30/24 10:17 Lares % (Auto) 9.1 % (2-11) 04/30/24 10:17 Eos % (Auto) 8.8 % (0-4) H 04/30/24 10:17 Baso % (Auto) 0.3 % (0-2) 04/30/24 10:17 Lymph # (Auto) 2.3 X10*3/uL (1.2-4.9) 04/30/24 10:17 Lares # (Auto) 1.2 X10*3/uL (0.1-1.2) 04/30/24 10:17 Eos # (Auto) 1.1 X10*3/uL (0.0-0.4) H 04/30/24 10:17 Baso # (Auto) 0.0 X10*3/uL (0.0-0.2) 04/30/24 10:17 Abs Immat Gran (auto) 0.13 X10*3/uL (0.00-0.03) H 04/30/24 10:17 Absolute Neuts (auto) 8.1 x10*3/uL (2.0-8.3) 04/30/24 10:17 Absolute Nucleated RBC 0.000 X10*3/uL (0.0-0.012) 05/05/24 06:12 Nucleated RBC % (auto) 0.0 /100WBC (0.0-0.2) 05/05/24 06:12 Neutrophils % (Manual) 96 % (45-73) H 04/26/24 22:07 Band Neutrophils % 1 % (3-5) L 04/26/24 22:07 Lymphocytes % (Manual) 1 % (20-40) L 04/26/24 22:07 Monocytes % (Manual) 1 % (2-11) L 04/26/24 22:07 Eosinophils % (Manual) 1 % (0-4) 04/26/24 22:07 Abs Neuts (Manual) 10.6 X10*3/uL (2.0-8.3) H 04/26/24 22:07 Lymphocytes # (Manual) 0.1 X10*3/uL (1.2-4.9) L 04/26/24 22:07 Monocytes # (Manual) 0.1 X10*3/uL (0.1-1.2) 04/26/24 22:07 Eosinophils # (Manual) 0.1 X10*3/uL (0.0-0.4) 04/26/24 22:07 Nucleated RBCs 1 /100WBC (0-0) H 04/26/24 22:07 Platelet Estimate NORMAL (NORMAL) 04/26/24 22:07 Plt Morphology Comment NORMAL 04/26/24 22:07 RBC Morphology NOTED 04/26/24 22:07 Microcytosis 1+ (5-14) /OIF 04/24/24 05:07 Ovalocytes 1+ (5-14) /OIF 04/26/24 22:07 Ky Cells 3+ (>5) /OIF 04/26/24 22:07 Acanthocytes (Spur) 1+ (0-2) /OIF 04/24/24 05:07 PT 13.7 SEC (10.9-12.4) H 04/23/24 10:42 INR 1.2 (0.9-1.1) H 04/23/24 10:42 APTT 31.5 SEC (26.0-36.8) 04/23/24 10:42 VBG pH 7.51 (7.32-7.43) H 05/03/24 11:53 VBG pCO2 29 mmHg 05/03/24 11:53 VBG pO2 90 mmHg 05/03/24 11:53 VBG HCO3 23 mmol/L (22-26) 05/03/24 11:53 VBG O2 Saturation 99.0 % 05/03/24 11:53 VBG Base Excess 1.7 mmol/L 05/03/24 11:53 Sodium 134 mmol/L (135-145) L 05/05/24 06:12 Potassium 4.0 mmol/L (3.3-5.1) 05/05/24 06:12 Chloride 99 mmol/L (96-108) 05/05/24 06:12 Carbon Dioxide 17 mmol/L (22-29) L 05/05/24 06:12 Anion Gap 22 (12-20) H 05/05/24 06:12 BUN 63 mg/dL (9-16) H 05/05/24 06:12 Creatinine 5.34 mg/dL (0.5-1.4) H* 05/05/24 06:12 Estim Creat Clear Calc 9.5 05/05/24 06:12 Estimated GFR 10 05/05/24 06:12 POC Glucose 194 mg/dL (60-115) H 05/05/24 07:17 Random Glucose 186 mg/dL (60-115) H 05/05/24 06:12 Lactic Acid 1.6 mmol/L (0.5-2.0) 04/26/24 22:06 Lactic Acid F/U @ 2Hr 1.2 mmol/L (0.5-2.0) 04/23/24 22:14 Calcium 8.5 mg/dL (8.4-10.2) D 05/05/24 06:12 Phosphorus 6.1 mg/dL (2.7-4.5) H 05/05/24 06:12 Magnesium 2.4 mg/dL (1.6-2.6) 04/26/24 22:06 Total Bilirubin 2.1 mg/dL (0.0-1.0) H 05/04/24 06:51 Direct Bilirubin 1.2 mg/dL (0.0-0.5) H 05/04/24 06:51 GGT 207 U/L (11-51) H 04/28/24 06:21 AST 56 U/L (5-37) H 05/04/24 06:51 ALT 76 U/L (0-40) H 05/04/24 06:51 Alkaline Phosphatase 521 U/L (39-117) H 05/04/24 06:51 Troponin I High Sens 390.3 ng/L (<3.5-35.0) H* D 04/27/24 23:48 C-Reactive Protein 5.51 mg/dL (< or = 0.50) H 05/03/24 06:45 B-Natriuretic Peptide 3639 pg/mL (<100) H 05/04/24 06:51 Total Protein 6.4 g/dL (6.5-8.0) L 05/04/24 06:51 Albumin 3.1 g/dL (3.5-5.0) L 05/04/24 06:51 Lipase 80 U/L (8-78) H 04/26/24 22:06 Mitochondrial AB Titer TNP 04/28/24 06:21 Beta-Hydroxybutyrate 3.18 mmol/L (0.02-0.27) H 04/29/24 05:37 Procalcitonin 4.41 ng/mL 05/05/24 06:12 Urine Color Dark Yellow 05/03/24 10:15 Urine Appearance Cloudy 05/03/24 10:15 Urine pH 5.0 (5.0-9.0) 05/03/24 10:15 Ur Specific [place] 1.015 (1.005-1.025) 05/03/24 10:15 Urine Protein 100 (2+) mg/dL (Neg-Trace) H 05/03/24 10:15 Urine Glucose (UA) 500 mg/dL (Negative) H 05/03/24 10:15 Urine Ketones Trace mg/dL (Negative) 05/03/24 10:15 Urine Blood Negative (Negative) 05/03/24 10:15 Urine Nitrite Negative (Negative) 05/03/24 10:15 Ur Leukocyte Esterase Trace (Negative) H 05/03/24 10:15 Urine RBC 0-2 /HPF (0-2) 05/03/24 10:15 Urine WBC 0-5 /HPF (0-5) 05/03/24 10:15 Ur Squamous Epith Cells 3-5 /HPF (0-2) 05/03/24 10:15 Other Crystals Present 05/03/24 10:15 Urine Bacteria None Seen (None Seen) 05/03/24 10:15 Hyaline Casts 3-5 /LPF (0-2) 05/03/24 10:15 Granular Casts Present 05/03/24 10:15 Urine Yeast Present 05/03/24 10:15 U Random Total Protein 83 mg/dL (<12) H 04/24/24 19:03 Urine Creatinine 83.21 mg/dL 04/24/24 19:03 Anti-Mitochondrial Ab NEGATIVE (NEGATIVE) 04/28/24 06:21 Respiratory Panel Echols See Note 04/27/24 01:45 Adenovirus (Rapid PCR) Not Detected (Not Detect.) 04/27/24 01:45 B.pert (TEM-PCR) Not Detected (Not Detect.) 04/27/24 01:45 B.parapertussis DNA PCR Not Detected (Not Detect.) 04/27/24 01:45 C. pneumoniae DNA (PCR) Not Detected (Not Detect.) 04/27/24 01:45 Coronavirus OC43 (PCR) Not Detected (Not Detect.) 04/27/24 01:45 Coronavirus HKU1 (PCR) Not Detected (Not Detect.) 04/27/24 01:45 Coronavirus 229E (PCR) Not Detected (Not Detect.) 04/27/24 01:45 Coronavirus NL63 (PCR) Not Detected (Not Detect.) 04/27/24 01:45 Hep Bs Antigen Negative (Negative) 04/28/24 06:21 Hep Bs Antibody NONREACTIVE (Nonreactive) 04/28/24 06:21 Hep B Core Total Ab Nonreactive (Nonreactive) 04/28/24 06:21 Hepatitis C Ab (EIA) Nonreactive (Nonreactive) 04/28/24 06:21 Human Metapneumovir PCR Not Detected (Not Detect.) 04/27/24 01:45 Influenza A (RT-PCR) Not Detected (Not Detect.) 04/27/24 01:45 Influenza Type A (PCR) NEGATIVE (Negative) 04/27/24 01:45 Influenza B (RT-PCR) Not Detected (Not Detect.) 04/27/24 01:45 Influenza Type B (PCR) NEGATIVE (Negative) 04/27/24 01:45 M. pneumoniae (PCR) Not Detected (Not Detect.) 04/27/24 01:45 Parainfluenza 1 (PCR) Not Detected (Not Detect.) 04/27/24 01:45 Parainfluenza 2 (PCR) Not Detected (Not Detect.) 04/27/24 01:45 Parainfluenza 3 (PCR) Not Detected (Not Detect.) 04/27/24 01:45 Parainfluenza 4 (PCR) Not Detected (Not Detect.) 04/27/24 01:45 RSV (PCR) Not Detected (Not Detect.) 04/27/24 01:45 RSV RNA Qual (PCR) NEGATIVE (Negative) 04/27/24 01:45 Entero/Rhino (PCR) Not Detected (Not Detect.) 04/27/24 01:45 SARS-CoV-2 RNA (RT-PCR) NEGATIVE (Negative) 04/27/24 01:45 SARS-CoV-2 RNA (RT-PCR) Not Detected (Not Detect.) 04/27/24 01:45 Impressions Renal Ultrasound 04/25/24 12:30 IMPRESSION: No suspicious findings. No hydronephrosis. Left renal cysts. Electronically signed by: Denton Arauz MD 04/26/2024 08:38 AM EDT RP Abdomen/Pelvis CT 04/27/24 09:09 IMPRESSION: 1. A cause for the patient's elevated bilirubin has not been found. 2. Incidental note made of cardiomegaly, elevated right hemidiaphragm, splenomegaly, BPH and other findings described above. Fleischner guidelines were followed. Electronically signed by: Emiliano Kemp MD 04/27/2024 10:52 AM EDT RP Abdomen Ultrasound 04/27/24 10:10 IMPRESSION: 1. Thickening of the gallbladder wall. No pericholecystic fluid. 2. Multiple gallbladder polyps with the largest measuring 0.5 cm. Electronically signed by: Ayleen Waggoner MD 04/27/2024 01:08 PM EDT RP Hepatobiliary Scan Nuclear Medicine 05/01/24 09:30 IMPRESSION: Visualization of the gallbladder is evidence of a patent cystic duct and strong evidence against the diagnosis of acute cholecystitis. The common bile duct is patent. Gallbladder emptying and ejection fraction are normal. Liver function appears normal. Electronically signed by: Keith Pearl MD 05/02/2024 08:50 AM EDT RP Chest X-Ray 05/03/24 10:48 IMPRESSION: 1. Right IJ catheter tip over right atrium. 2. No acute abnormality of chest. Electronically signed by: Vicente Perez MD 05/03/2024 03:04 PM EDT RP Head CT 05/03/24 11:29 IMPRESSION: 1. Age-related involutional changes and microvascular disease. 2. No acute hemorrhage, mass effect, shift or acute intracranial pathology. Electronically signed by: Jorje Carr MD 05/03/2024 02:16 PM EDT RP Discharge Plan Discharge Anticipated Discharge Date/Time: 05/05/24 15:32 Patient Disposition: Xfer SNF Discharge Diagnosis: ESRD with new HD dependence CHF Diabetes Adverse reaction to gabapentin Pulmonary nodules and ground-glass opacities [facility] [Outside] - 1 Week Antony Pappas MD [Primary Care Provider] - 1 Week Pepe Junior MD [Physician] - 1 Month Discharge Medications: New metoprolol succinate 25 mg Tablet Extended Release 24 Hr 25 mg PO DAILY Qty: 30 0RF Protocol: Hold for SBP/HR < HOLD for SBP < : 90 HOLD for HR < : 60 heparin (porcine) 5,000 unit/mL Solution 5,000 unit intra-catheter MOWEFR@1645 Qty: 1 0RF sevelamer carbonate 800 mg Tablet 800 mg PO TIDWM Qty: 1 0RF insulin glargine [Lantus U-100 Insulin] 100 unit/mL Solution 16 unit subcut DAILY Qty: 1 0RF Continued atorvastatin 80 mg tablet 1 tab PO DAILY aspirin 81 mg Tablet,Delayed Release (Dr/Ec) 81 mg PO DAILY montelukast 10 mg tablet 1 tab PO DAILY albuterol sulfate 90 mcg/actuation HFA aerosol inhaler 2 puff PO Q6H PRN (Reason: wheezing) Trelegy Ellipta 200-62.5-25 mcg blister with device 1 ea INHALATION DAILY isosorbide mononitrate 30 mg Tablet Extended Release 24 Hr 30 mg PO DAILY Qty: 90 0RF Protocol: Hold for SBP< HOLD for SBP < : 90 Vitamin D2 1.25 mg 1 mg PO QWEEK Discontinued gabapentin 300 mg capsule 1 cap PO BEDTIME furosemide [Lasix] 80 mg tablet 80 mg PO DAILY Qty: 90 0RF metoprolol succinate 50 mg Tablet Extended Release 24 Hr 50 mg PO DAILY Qty: 90 0RF Protocol: Hold for SBP/HR < HOLD for SBP < : 90 HOLD for HR < : 60 hydralazine 25 mg Tablet 25 mg PO TID Qty: 90 0RF Protocol: Hold for SBP< HOLD for SBP < : 90 dapagliflozin propanediol [Farxiga] 10 mg tablet 10 mg PO DAILY glipizide 10 mg tablet 10 mg PO BID insulin degludec [Tresiba FlexTouch U-200] 200 unit/mL (3 mL) insulin pen 65 unit subcut DAILY Discharge Orders: Discharge Order (Routine); Ordered 05/05/24 Ordered By: Nathan Saucedo Diet: low-potassium low-phosph Activity on Discharge: As tolerated Stand Alone Forms: Patient Portal Discharge page Print Language: Latvian Care Plan Goals: renal health heart health Health Concerns: ESRD with new HD dependence - To [facility] for short-term rehabilitation; dialysis TuThSa - Upon discharge from [facility], dialysis at [facility] - Sevelamer 800 mg with each meal - Follow up with Nephrology at dialysis CHF - Stop furosemide and hydralazine - Decrease metoprolol succinate to 25 mg daily - Continue isosorbide mononitrate 30 mg daily - Follow up with Cardiology in 1 month Diabetes - Stop dapagliflozin and glipizide - Change Tresiba to Lantus, and use 16 units Adverse reaction to gabapentin - Stop gabapentin due to adverse reaction [fever and tremors] Pulmonary nodules and ground-glass opacities - Repeat CT of the chest without contrast in 3 months Please follow up with your primary care doctor within [address] [facility]. Return to the hospital if you experience recurrent or worsening symptoms. Plan of Treatment: see above Assessment: See Discharge Summary.
--- NOTE | 2024-05-05 12:34 | MHC.CLN ---
F/U PO INTAKE VARIABLE DIET RX: 2000DM LOW PHOS, LOW K+ STAGE 2 PRESSURE AREA TO COCCYX DOWNGRADED TO MASD PER WOUND NURSE WILL D/C ENSURE MAX BID MONITOR PO INTAKE CLOSELY
[2024-05-05 13:37] LABS: Glucose, Whole Blood 123 mg/dL (60-115)
[2024-05-05 15:42] LABS: Glucose, Whole Blood 250 mg/dL (60-115)
[2024-05-05 15:52] VITALS: BP 92/51; PULSE 85; RESP 20; TEMP 36.3; O2SAT 97
--- NOTE | 2024-05-05 16:19 | MHC.CM.PN ---
Pt has been medically cleared for DC. he will go to [facility] for STR this afternoon via BLS.
[2024-05-05] MEDS: Insulin Lispro 100 UNIT/ML 3 ML VIAL SUBCUT (17:08)
[2024-05-06 04:18] LABS: HBc Num1 0.35 S/CO (0.00-0.79); HBsAGNum1 1.75 S/CO (0.00-0.99); Hepatitis B Core Antibody Nonreactive (Nonreactive); ~Hepatitis B Surface Antibody NONREACTIVE (Nonreactive)
[2024-05-06 05:13] LABS: HBsAGNum2 Nonreactive; HBsAGNum3 Nonreactive; Hepatitis B Surface Antigen NEGATIVE (Negative)
== END 2024-05-05 17:41 | disposition skilled nursing facility (03) | DRG 291 ==
LOC: HO.ED 15:42 → HO.EDOVER 16:05 → HO.IMC 04-24 07:44
PROVIDERS: Hospitalist; Internal Medicine; Internal Medicine Gastroenterology; Nurse Practitioner Family; Radiology Vascular & Interventional Radiology; Student in an Organized Health Care Education/Training Program; Admitting Provider Nurse Practitioner Acute Care; Emergency Provider Emergency Medicine Emergency Medical Services; PCP Internal Medicine; Visit Provider Family Medicine
PROC: 0JH63XZ Insertion of Tunneled Vascular Access Device into Chest Subcutaneous Tissue and Fascia, Percutaneous Approach (ICD-10-PCS; principal; 2024-05-04 10:30)
DX: I13.2 Hypertensive heart and chronic kidney disease with heart failure and with stage 5 chronic kidney disease, or end stage renal disease (principal); G92.8 Other toxic encephalopathy; I50.23 Acute on chronic systolic (congestive) heart failure; J96.01 Acute respiratory failure with hypoxia; N18.6 End stage renal disease; N17.9 Acute kidney failure, unspecified; I42.9 Cardiomyopathy, unspecified; D63.1 Anemia in chronic kidney disease; E87.6 Hypokalemia; G25.1 Drug-induced tremor; T42.6X5A Adverse effect of other antiepileptic and sedative-hypnotic drugs, initial encounter; I27.20 Pulmonary hypertension, unspecified; Z99.2 Dependence on renal dialysis; I25.10 Atherosclerotic heart disease of native coronary artery without angina pectoris; E11.22 Type 2 diabetes mellitus with diabetic chronic kidney disease; Z95.2 Presence of prosthetic heart valve; E11.40 Type 2 diabetes mellitus with diabetic neuropathy, unspecified; Z20.822 Contact with and (suspected) exposure to COVID-19; Z99.81 Dependence on supplemental oxygen; Z87.891 Personal history of nicotine dependence; Z79.899 Other long term (current) drug therapy
CPT/HCPCS: 0241U; 36415; 36556; 36558; 70450; 71045; 71250; 74176; 76705; 76775; 76937; 78227; 80048; 80053; 80076; 81001; 82010; 82248; 82570; 82803; 82947; 82977; 83605; 83690; 83735; 83880; 84100; 84145; 84156; 84484; 85007; 85025; 85027; 85610; 85730; 86140; 86381; 86704; 86706; 86803; 87040; 87086; 87088; 87340; 87633; 90999; 93005; 93306; 97116; 97162; 99285; A9537; C1752; C1758; C1769; J0131; J0456; J0696; J1644; J1940; J2405; J2805; P9047; Q9957

== ENCOUNTER 2024-04-23 16:01 | Outpatient (BNV) | payer MEDICARE, SELFPAY | END 2024-04-25 07:00 | PROVIDERS: Admitting Provider Nurse Practitioner Acute Care; Emergency Provider Emergency Medicine Emergency Medical Services; PCP Internal Medicine; Visit Provider Internal Medicine Cardiovascular Disease | DX: T82.518A Breakdown (mechanical) of other cardiac and vascular devices and implants, initial encounter (principal); I36.1 Nonrheumatic tricuspid (valve) insufficiency; I27.20 Pulmonary hypertension, unspecified | CPT/HCPCS: 93306 ==

== ENCOUNTER 2024-04-23 16:01 | Outpatient (BNV) | payer MEDICARE, SELFPAY | END 2024-04-28 15:08 | PROVIDERS: Admitting Provider Nurse Practitioner Acute Care; Emergency Provider Emergency Medicine Emergency Medical Services; PCP Internal Medicine; Visit Provider Student in an Organized Health Care Education/Training Program | DX: N18.6 End stage renal disease (principal) | CPT/HCPCS: 36556; 76937; 77001 ==

== ENCOUNTER 2024-04-23 16:01 | Outpatient (BNV) | payer MEDICARE, SELFPAY | END 2024-05-04 11:33 | PROVIDERS: Admitting Provider Nurse Practitioner Acute Care; Emergency Provider Emergency Medicine Emergency Medical Services; PCP Internal Medicine; Visit Provider Physician Assistant Surgical | DX: N18.6 End stage renal disease (principal) | CPT/HCPCS: 36558; 76937 ==

== ENCOUNTER → 2024-04-23 16:01 | Outpatient (BNV) | payer MEDICARE, SELFPAY | PROVIDERS: Admitting Provider Nurse Practitioner Acute Care; Emergency Provider Emergency Medicine Emergency Medical Services; PCP Internal Medicine; Visit Provider Internal Medicine Gastroenterology | DX: R74.01 Elevation of levels of liver transaminase levels (principal) | CPT/HCPCS: 99222 ==

== ENCOUNTER → 2024-04-23 16:01 | Outpatient (BNV) | payer MEDICARE, SELFPAY | PROVIDERS: Admitting Provider Nurse Practitioner Acute Care; Emergency Provider Emergency Medicine Emergency Medical Services; PCP Internal Medicine; Visit Provider Internal Medicine | DX: R79.89 Other specified abnormal findings of blood chemistry (principal); N17.9 Acute kidney failure, unspecified; N18.4 Chronic kidney disease, stage 4 (severe); R41.82 Altered mental status, unspecified | CPT/HCPCS: 99222 ==

== ENCOUNTER → 2024-04-23 16:01 | Outpatient (BNV) | payer MEDICARE, SELFPAY | PROVIDERS: Admitting Provider Nurse Practitioner Acute Care; Emergency Provider Emergency Medicine Emergency Medical Services; PCP Internal Medicine; Visit Provider Internal Medicine Cardiovascular Disease | DX: I50.9 Heart failure, unspecified (principal) | CPT/HCPCS: 99223; 99233 ==

== ENCOUNTER → 2024-04-23 16:01 | Outpatient (BNV) | payer MEDICARE, SELFPAY | PROVIDERS: Admitting Provider Nurse Practitioner Acute Care; Emergency Provider Emergency Medicine Emergency Medical Services; PCP Internal Medicine; Visit Provider Nurse Practitioner Acute Care | DX: J81.1 Chronic pulmonary edema (principal); N18.4 Chronic kidney disease, stage 4 (severe); N18.6 End stage renal disease; Z99.2 Dependence on renal dialysis; I50.23 Acute on chronic systolic (congestive) heart failure; R50.9 Fever, unspecified; T42.6X5A Adverse effect of other antiepileptic and sedative-hypnotic drugs, initial encounter; G92.8 Other toxic encephalopathy; J96.01 Acute respiratory failure with hypoxia | CPT/HCPCS: 99223; 99232; 99233; 99239; 99499 ==

== ENCOUNTER → 2024-04-23 16:01 | Outpatient (BNV) | payer MEDICARE, SELFPAY | PROVIDERS: Admitting Provider Nurse Practitioner Acute Care; Emergency Provider Emergency Medicine Emergency Medical Services; PCP Internal Medicine; Visit Provider Nurse Practitioner Family | DX: N18.6 End stage renal disease (principal); Z99.2 Dependence on renal dialysis; I50.9 Heart failure, unspecified; N17.9 Acute kidney failure, unspecified; J81.1 Chronic pulmonary edema | CPT/HCPCS: 90935; 99223; 99232 ==

== ENCOUNTER → 2024-05-22 05:55 | Outpatient (BNV) | payer MEDICARE, SELFPAY | PROVIDERS: Admitting Provider Nurse Practitioner Acute Care; Emergency Provider Emergency Medicine; PCP Internal Medicine; Visit Provider Internal Medicine | DX: I44.0 Atrioventricular block, first degree (principal) | CPT/HCPCS: 93010 ==

== ENCOUNTER 2024-05-22 05:56 | Inpatient (IN) | payer MEDICARE, SELFPAY ==
[2024-05-22] VITALS (17 sets, daily range): BP systolic 90–138; BP diastolic 45–92; PULSE 85–118; RESP 18–23; TEMP 37.2–39.4; O2SAT 93–100; BMI 22.0
--- NOTE | 2024-05-22 | ECG_ITS ---
Test Reason : CHEST PAIN Blood Pressure : / mmHG Vent. Rate : 103 BPM Atrial Rate : 104 BPM P-R Int : 238 ms QRS Dur : 088 ms QT Int : 348 ms P-R-T Axes : 105 -23 137 degrees QTc Int : 455 ms Artifact in tracing Sinus tachycardia with 1st degree A-V block Left ventricular hypertrophy with repolarization abnormality ( Carlos product ) Abnormal ECG When compared with ECG of 27-APR-2024 23:32, Premature ventricular complexes are no longer Present Referred By: Generic ED Physician Electronically Signed By:MARIE HOFFMANN
--- NOTE | ~2024-05-22 | IR_ITS ---
PERMACATH REMOVAL INDICATION: Patient presents with a tunneled dialysis catheter. Patient has bacteremia. Referring physician requests removal. TECHNIQUE: The right chest was prepped and draped in routine sterile fashion. 1% lidocaine was used for local anesthesia. Using blunt dissection, the tunneled dialysis catheter was removed from the chest wall without complication. The tip was sent for culture. After hemostasis was obtained, a dry sterile dressing was applied. Patient tolerated the procedure well. IR/IR cvc remove any age IMPRESSION: Permacath removal This procedure was performed by Ubaldo Rockwell PA-C and supervised by Dr. Greenwood Electronically signed by: Michael Greenwood MD 05/26/2024 01:39 PM EDT
--- NOTE | ~2024-05-22 | XR_ITS ---
EXAMINATION: XR CHEST CLINICAL INFORMATION: Fever, cough. COMPARISON: CT chest 05/05/2024. TECHNIQUE: Frontal view of the chest was obtained. FINDINGS: Right internal jugular dual lumen catheter terminates in projection with the right atrium. Multiple and fractured median sternotomy wires noted. Denser artery calcific atherosclerosis. The cardiac silhouette is normal in size. Low lung volumes are present with the fifth anterior rib segments terminate in projection at the lung bases. Making allowances for low lung volumes, a normal pattern of pulmonary vasculature is noted. No focal pulmonary consolidation identified. XR/XR chest 1V IMPRESSION: *No acute cardiopulmonary abnormalities. *Right internal jugular dual-lumen catheter terminating within the right atrium. Electronically signed by: Brannon Armstrong MD 05/22/2024 06:56 AM EDT
[2024-05-22] MEDS: Acetaminophen 325 MG TABLET 650 MG PO ×3 (06:26→19:25)
[2024-05-22 06:30] LABS: MANUAL DIFF FLAG NO
[2024-05-22] MEDS: cefEPime HCl 1 GM in 0.9 % Sodium Chloride 50 ML IV (06:30)
[2024-05-22 06:31] LABS: Basophils Absolute Auto 0.1 X10*3/uL (0.0-0.2); Basophils Percent Auto 0.3 % (0-2); Eosinophils Absolute Auto 0.1 X10*3/uL (0.0-0.4); Eosinophils Percent Auto 0.4 % (0-4); Hematocrit 36.2 % (42.0-52.0); Hemoglobin 11.8 g/dl (14.0-18.0); Imm Gran Abs Auto 0.09 X10*3/uL (0.00-0.03); Imm Gran Pct Auto 0.5 % (0.0-0.4); Lymphocytes Absolute Auto 0.7 X10*3/uL (1.2-4.9); Mean Corpuscular HGB Conc 32.6 g/dl (31.0-36.0); Mean Corpuscular Hemoglobin 26.5 pg (27.0-33.0); Mean Corpuscular Volume 81.3 fL (80.0-98.0); Mean Platelet Volume 8.2 fL (9.4-12.4); Monocytes Absolute Auto 1.2 X10*3/uL (0.1-1.2); Monocytes Percent Auto 6.5 % (2-11); Neutrophils Absolute Auto 15.7 x10*3/uL (2.0-8.3); Neutrophils Percent Auto 88.3 % (45-73); Platelet Count 233 X10*3/uL (160-400); Red Blood Count 4.45 X10*6/uL (4.60-5.80); Red Cell Distribution Width 18.6 % (11.0-16.0); White Blood Count 17.8 X10*3/uL (4.8-10.8)
--- NOTE | 2024-05-22 06:33 | ED_ITS ---
HPI - Chest Pain General Chief Complaint: Chest Pain Stated Complaint: CHEST PAIN Time Seen by Provider: 05/22/24 06:30 Source: patient, EMS, RN notes reviewed and old records reviewed Mode of arrival: EMS History of Present Illness ED Provider: Estephania HPI narrative: Patient is an 83-year-old male with history of CHFrEF, aortic valve replacement, DM, HTN, COPD, ESRD on HD TuThS, recently discharged on 05/05, presenting to the ED from [facility] with complaint of left sided chest pain which has since resolved, and daughter also reported that patient appeared to have altered mental status since yesterday morning. Patient's only complaint at this time is feeling chills. Denies shortness of breath or difficulty breathing. Denies abdominal pain, nausea, vomiting or diarrhea. MD complaint: chest pain Onset (ago): hour(s) Timing of current episode: now resolved Onset: during rest Pain location: left chest Pain radiation: none Context: recent illness Related Data Home Medications ?Medication ?Instructions ?Recorded ?Confirmed albuterol sulfate 90 mcg/actuation 2 puff PO Q6H PRN wheezing 03/11/22 05/22/24 aerosol inhaler aspirin 81 mg tablet,delayed 81 mg PO DAILY 03/11/22 05/22/24 release atorvastatin 80 mg tablet 1 tab PO DAILY 03/11/22 05/22/24 montelukast 10 mg tablet 1 tab PO DAILY 03/11/22 05/22/24 fluticasone fur. 200 mcg-umeclid 1 ea inhalation DAILY 04/05/24 05/22/24 62.5 mcg-vilant 25 mcg inhalat.powder (Trelegy Ellipta) Vitamin D2 1.25 mg PO SA 04/24/24 05/22/24 insulin glargine 100 unit/mL 30 unit subcut DAILY 05/22/24 05/22/24 subcutaneous solution (Lantus U-100 Insulin) insulin lispro 100 unit/mL See Protocol subcut USEASDIRECTD 05/22/24 05/22/24 subcutaneous pen Previous Rx's ?Medication ?Instructions ?Recorded isosorbide mononitrate 30 mg 30 mg PO DAILY #90 tabs 04/10/24 tablet,extended release 24 hr metoprolol succinate 25 mg 25 mg PO DAILY #30 tabs 05/05/24 tablet,extended release 24 hr sevelamer carbonate 800 mg tablet 800 mg PO TIDWM #1 tab 05/05/24 Allergies Allergy/AdvReac Type Severity Reaction Status Date / Time gabapentin AdvReac Severe Fever Verified 05/22/24 06:07 Review of Systems 2 Review of Systems: As per HPI. Yes all other systems are reviewed and are negative [facility] Past Medical History Medical History KAILEY (acute kidney injury) Pneumonia CKD (chronic kidney disease) stage 3, GFR 30-59 ml/min Type 2 diabetes mellitus CHF (congestive heart failure) Hypertension Diabetes Asthma COPD (chronic obstructive pulmonary disease) CHF (congestive heart failure) Social History Social History Household Members: Family Housing: House Do you presently have visiting nurse or other home services: No Alcohol intake: never Comment: refusing alarms Patient Tobacco Use Status: Former Tobacco user Smoked in Last 30 Days: No Second Hand Smoke Exposure: No Use of substances other than those prescribed or required for medical reasons: No Advance Directives: Yes Advance Directives on File: Yes Advance Directives Date on File: 03/13/22 Do you have a plan to hurt others: No Plan service: No Current occupational status: retired Physical Exam 2 Vital Signs: Vital Signs: Last Vital Signs Temp 99.9 F 05/22/24 09:59 Pulse 92 05/22/24 09:59 Resp 18 05/22/24 09:59 BP 103/54 L 05/22/24 10:34 Pulse Ox 93 05/22/24 09:59 O2 Del Method Room Air 05/22/24 09:59 BMI result Body Mass Index 22.0 Vital signs have been reviewed and appear to be correct. Blood pressure normal. Heart rate normal. Respiratory rate normal. Temperature febrile. Oxygen saturation normal. Const: General: cooperative, no acute distress, alert and awake O rientation/consciousness: patient oriented x3 HEENT: Head: Yes normocephalic and Yes atraumatic Ears: hearing grossly normal bilaterally and external ears normal General nose exam: Normal external nose present Mouth: Normal oral and palatal mucosa present T hroat: Yes uvula midline Eyes: Pupils: Equal, round and reactive pupils present Neck: Neck: Yes normal visual inspection and Yes no lymphadenopathy Chest: Chest/axillae images: 1. permacath with no dressing, dried blood crusted around cath site with surrounding erythema extending to neck Resp: Effort & Inspection: normal respiratory effort Auscultation: clear to auscultation bilaterally Cardio: Rate: regular rate Rhythm: regular rhythm Heart sounds: S1 normal heart sound present and S2 normal heart sound present GI: Palpation (GI): Soft to palpation and nontender : General: Yes no CVA tenderness Back/Spine/Pelvis: Back: no CVA tenderness Skin: General skin exam: elasticity normal and turgor normal Neuro: General: patient oriented x3, tone normal and moves all extremities Cranial nerves: Yes Equal, round and reactive pupils present Extrem: General: Yes normal to inspection, Yes full ROM and Yes capillary refill normal NIH Stroke Scale Internal: Initial- Upon Arrival Time: 06:56 Level of Consciousness: Alert Level of Consciousness Questions: Answers both questions correctly Level of Consciousness Commands: Performs both tasks correctly Best Gaze: Normal Visual: No visual loss Facial Palsy: Normal Motor Arm (Right): No drift Motor Arm (Left): No drift Motor Leg (Right): No drift Motor Leg (Left): No drift Limb Ataxia: Absent Sensory: Normal Best Language: No aphasia Dysarthia: Normal Extinction and Inattention: No abnormality Score: 0 Medications Administered Discontinued Medications Generic Name Dose Route Start Last Admin Trade Name Stewart PRN Reason Stop Dose Admin Acetaminophen 650 mg 05/22/24 06:08 05/22/24 06:26 Acetaminophen 325 Mg Tablet PO 05/22/24 06:09 650 mg ONCE ONE Administration Cefepime HCl 1 gm/ Sodium 50 mls @ 100 mls/hr 05/22/24 06:08 05/22/24 07:02 Chloride IV 05/22/24 06:37 Infused ONCE ONE Infusion Sodium Chloride 250 mls @ 250 mls/hr 05/22/24 06:39 05/22/24 08:57 Ns IV 05/22/24 07:38 Infused .Q1H ONE Infusion Albumin Human 100 mls @ 133.333 mls/hr 05/22/24 06:45 05/22/24 09:17 Kedbumin 25 % IV 05/22/24 08:29 Infused Q1H LESLI Infusion Vancomycin HCl 1,500 mg/ 500 mls @ 333.333 mls/hr 05/22/24 06:47 05/22/24 09:00 Sodium Chloride IV 05/22/24 08:16 Infused ONCE ONE Infusion Medical Decision Making Medical Decision Making [facility] Narrative: Patient is an 83-year-old male with history of CHFrEF, aortic valve replacement, DM, HTN, COPD, ESRD on HD TuThSat, recently discharged on 05/05, presenting to the ED from [facility] with complaint of left sided chest pain which has since resolved, and daughter also reported that patient appeared to have altered mental status since yesterday morning. On exam patient is awake, A+Ox3, febrile, VS WNL, normal neurological exam without focal deficits, physical exam findings as above. Given reported symptoms and physical exam findings, initial differential includes sepsis, permacath infection, UTI, pneumonia. Labs notable for leukocytosis with left shift, lactic acidosis, elevated BNP. Viral serology negative. X-ray chest notable for no evidence of pneumonia. My interpretation is in agreement with the radiologist's interpretation. Patient states he has not made urine since he started hemodialysis. IV antibiotics ordered by overnight attending MD prior to my arrival. Admission accepted by Dr. Houston. Differential Diagnosis Differential Diagnoses: The differential diagnosis associated with the presentation includes As per [facility] Admission/Observation Consideration of admission/observation: Escalation of care including admission/observation considered Consult Healthcare Provider Management of the patient was discussed with: Hospitalist Lab Data [facility] Lab Attestation statement: I reviewed the patient's lab results. As per [facility] 05/22/24 06:12 05/22/24 06:12 Labs: Lab Results 05/22/24 05/22/24 Range/Units 06:12 09:18 WBC 17.8 H (4.8-10.8) X10*3/uL RBC 4.45 L (4.60-5.80) X10*6/uL Hgb 11.8 L (14.0-18.0) g/dl Hct 36.2 L (42.0-52.0) % MCV 81.3 (80.0-98.0) fL MCH 26.5 L (27.0-33.0) pg MCHC 32.6 (31.0-36.0) g/dl RDW 18.6 H (11.0-16.0) % Plt Count 233 (160-400) X10*3/uL MPV 8.2 L (9.4-12.4) fL Immature Gran % (Auto) 0.5 H (0.0-0.4) % Neut % (Auto) 88.3 H (45-73) % Lymph % (Auto) 4.0 L (20-40) % Roosevelt % (Auto) 6.5 (2-11) % Eos % (Auto) 0.4 (0-4) % Baso % (Auto) 0.3 (0-2) % Lymph # (Auto) 0.7 L (1.2-4.9) X10*3/uL Roosevelt # (Auto) 1.2 (0.1-1.2) X10*3/uL Eos # (Auto) 0.1 (0.0-0.4) X10*3/uL Baso # (Auto) 0.1 (0.0-0.2) X10*3/uL Abs Immat Gran (auto) 0.09 H (0.00-0.03) X10*3/uL Absolute Neuts (auto) 15.7 H (2.0-8.3) x10*3/uL Absolute Nucleated RBC 0.000 (0.0-0.012) X10*3/uL Nucleated RBC % (auto) 0.0 (0.0-0.2) /100WBC Sodium 135 (135-145) mmol/L Potassium 4.3 D (3.3-5.1) mmol/L Chloride 102 (96-108) mmol/L Carbon Dioxide 22 (22-29) mmol/L Anion Gap 15 (12-20) BUN 22 H (9-16) mg/dL Creatinine 3.41 H (0.5-1.4) mg/dL Estim Creat Clear Calc 13.9 Estimated GFR 17 Random Glucose 246 H (60-115) mg/dL Lactic Acid 2.8 H* (0.5-2.0) mmol/L Lactic Acid F/U @ 2Hr 1.4 (0.5-2.0) mmol/L Calcium 9.0 D (8.4-10.2) mg/dL Magnesium 1.9 (1.6-2.6) mg/dL Total Bilirubin 1.2 H (0.0-1.0) mg/dL Direct Bilirubin 0.5 (0.0-0.5) mg/dL AST 21 (5-37) U/L ALT 16 (0-40) U/L Alkaline Phosphatase 167 H (39-117) U/L Troponin I High Sens 30.2 D 36.6 H (<3.5-35.0) ng/L C-Reactive Protein 0.86 H (< or = 0.50) mg/dL B-Natriuretic Peptide 6750 H (<100) pg/mL Total Protein 6.5 (6.5-8.0) g/dL Albumin 3.4 L (3.5-5.0) g/dL Lipase 279 H (8-78) U/L Procalcitonin 0.24 ng/mL Independent Interpretation I performed an independent interpretation of an: EKG (sinus tachycardia with 1st degree AV block, [id number], LVH) and Plain X-Ray Interpretation: No evidence of pneumonia on chest xray Radiology Impression Discussion of test interpretation with radiology: I have reviewed the radiologist's reading. Radiologist Impression: XR/XR chest 1V IMPRESSION: *No acute cardiopulmonary abnormalities. *Right internal jugular dual-lumen catheter terminating within the right atrium. External Record Review External record reviewed: Inpatient record, Office record and Outpatient record Prescription Management I considered prescription management with: Antibiotic Discharge Plan Discharge Clinical Impression: Sepsis Patient Disposition: Admitted As Inpatient
[2024-05-22 06:39] LABS: Lactic Acid 2.8 mmol/L (0.5-2.0)
[2024-05-22 06:46] LABS: Alanine Aminotransferase 16 U/L (0-40); Albumin Level 3.4 g/dL (3.5-5.0); Alkaline Phosphatase 167 U/L (39-117); Anion Gap 15 (12-20); Aspartate Amino Transferase 21 U/L (5-37); Bilirubin Direct 0.5 mg/dL (0.0-0.5); Bilirubin Total 1.2 mg/dL (0.0-1.0); Blood Urea Nitrogen 22 mg/dL (9-16); C Reactive Protein 0.86 mg/dL (< or = 0.50); Carbon Dioxide 22 mmol/L (22-29); Chloride 102 mmol/L (96-108); Creatinine Clr Calc Pharmacy 13.9; Estimated Glomerular Filt Rate 17; Glucose Random 246 mg/dL (60-115); Lipase 279 U/L (8-78); Magnesium 1.9 mg/dL (1.6-2.6); Potassium 4.3 mmol/L (3.3-5.1); Sodium 135 mmol/L (135-145); Total Protein 6.5 g/dL (6.5-8.0)
[2024-05-22 06:48] LABS: Troponin-I High Sensitivity 30.2 ng/L (<3.5-35.0)
[2024-05-22] MEDS: 0.9 % Sodium Chloride 250 ML IV (06:48)
--- NOTE | 2024-05-22 06:54 | PC.NURSE ---
pt biba from home, alert to self at this time, respirations even and unlabored. pt reporting onset of chest pain starting around 3am, ems gave pt 324 asprin with relief. per ems, pt daughter on scene reported onset of ams yesterday morning. on arrival, pt noted to be shivering, pt initial temp 102.3, aware. sepsis alert called on pt. 22G placed in left hand, 20G right hand and 20G right ac. pt has right chest dialysis port that appears to have no dressing, some drainage noted and redness around site. pt normal sinus on tele 88-90bpm. rectal probe placed at this time. pt attempted to urinate in urinal, pt noted to have incontinent urine. fluids administered per sep. pharmacy to bring up albumin.
[2024-05-22] MEDS: vancomycin HCL 1,500 MG in 0.9 % Sodium Chloride 500 ML 333.33 MG IV (07:03)
[2024-05-22 07:05] LABS: Influenza A PCR NEGATIVE (Negative); Influenza B PCR NEGATIVE (Negative); Resp Syncy Virus RNA Qual PCR NEGATIVE (Negative); SARS COV2 PCR INHOUSE NEGATIVE (Negative)
--- OUTSIDE RECORDS SUMMARY | 2024-05-22 07:09 | XMS_ITS | Continuity of Care Document ---
Author Organization [facility] lt Address [address] [place] [address]- Care Team Providers Care Associate Media Director Name Role Phone Antony Pappas MD Primary Care Physician [phone] Encounter [facility] [place] Date(s): 04/02/23 - 04/09/23 [facility] [place], operated [facility] [address] [place] [address]- Attending Physician: Antony Pappas MD Allergies, Adverse Reactions, Alerts No Known Allergies Immunizations Given and Recorded Vaccine Date Status Refusal Reason pneumococcal 20-valent conjugate vaccine 12/31/22 Given [id number] 12y+ bivalent booster vax 06/10/22 Given influenza virus vaccine, inactivated 06/10/22 Give n influenza virus vaccine, inactivated 06/03/22 Olegario rded influenza virus vaccine, inactivated 05/23/21 Give n influenza virus vaccine, inactivated 03/18/20 Olegario rded influenza virus vaccine, inactivated 05/05/19 Give n influenza virus vaccine, inactivated 05/13/17 Give n influenza virus vaccine, inactivated 05/21/16 Give n influenza virus vaccine, inactivated 04/24/15 Give n influenza virus vaccine, inactivated 05/09/13 Give n influenza virus vaccine, inactivated 05/13/11 Give n influenza virus vaccine, inactivated 07/26/04 Give n SARS-CoV-2 (COVID-19) mRNA BNT-162b2 vac 12/29/21 Given SARS-CoV-2 (COVID-19) mRNA BNT-162b2 vac 05/21/21 Recorded SARS-CoV-2 (COVID-19) mRNA BNT-162b2 vac 10/08/20 Recorded SARS-CoV-2 (COVID-19) mRNA BNT-162b2 vac 10/02/20 Recorded SARS-CoV-2 (COVID-19) mRNA BNT-162b2 vac 1 09/11/20 Recorded SARS-CoV-2 (COVID-19) mRNA BNT-162b2 vac 09/10/20 Recorded zoster vaccine, inactivated 05/07/20 Recorded zoster vaccine, inactivated 03/18/20 Recorded Influenza Virus Vaccine (oldterm) 05/06/20 Recorde d Influenza Virus Vaccine (oldterm) 05/11/14 Given Influenza Virus Vaccine (oldterm) 2 05/31/07 Given Influenza Virus Vaccine (oldterm) 06/08/06 Given tetanus/diphtheria/pertussis, acel(Tdap) 05/17/18 Given Fluzone (oldterm) 05/04/18 Given pneumococcal 13-valent vaccine 11/12/14 Given Fluzone Preservative-Free (oldterm) 3 04/19/12 Giv en FluLaval (oldterm) 4 05/27/10 Given FluLaval (oldterm) 5 04/30/09 Given Zostavax (oldterm) 03/25/09 Given Pneumococcal Vaccine (oldterm) 08/23/08 Given Pneumococcal Vaccine (oldterm) 08/26/01 Given Tet/Diphth/Acel, Pertussis (oldterm) 08/23/08 Give n Influenza Inactive (IM) (oldterm) 6 05/15/08 Given tetanus-diphtheria toxoids (Td) 07/26/98 Given 1Result Comment: [facility] # 2 scheduled for 10/02/20 2Admin Note: given in clinic 3Admin Note: vis given 4Admin Note: BIOMEDICAL RADHA 5Admin Note: Biomedical Radha [facility] 6Admin Note: given in clinic Medications amLODIPine 2.5 mg oral tablet 1 tablet, By Mouth, Daily, # 90 tablet, 1 Refills, Maintenance, 01/15/23 15:39:00 EDT, [id number], 160, cm, 12/31/22 9:21:00 EDT, Height, 65, kg, 04/28/22 7:07:00 EDT, Dry Weight Start Date: 01/15/23 Status: Ordered aspirin 81 mg oral delayed release tablet 81 mg, 1, tablet, By Mouth, Daily, # 30 tablet, Refills 0, Maintenance, 09/07/18 15:22:30 EST Start Date: 09/07/18 Status: Ordered atorvastatin 80 mg oral tablet 1 tablet, By Mouth, Daily, # 90 tablet, 1 Refills, Maintenance, 02/23/23 22:57:00 EDT, [id number], 160, cm, 12/31/22 9:21:00 EDT, Height, 65, kg, 04/28/22 7:07:00 EDT, Dry Weight Start Date: 02/23/23 Status: Ordered ergocalciferol 60592 iu oral capsule 1, capsule, By Mouth, Every week, # 5 capsule, Refills 11, Tot. Refills 11, Maintenance, 03/09/23 11:38:00 EDT, Route to Pharmacy Electronically, [id number], 160, cm, 12/31/22 9:21:00 EDT,Height, 65, kg, 04/28/22 7:07:00 EDT, Dry Weight Start Date: 03/09/23 Status: Ordered Farxiga 5 mg oral tablet 1 tablet, By Mouth, Daily, # 30 tablet, 2 Refills, Maintenance, 03/06/23 23:35:00 EDT, [id number], 160, cm, 12/31/22 9:21:00 EDT, Height, 65, kg, 04/28/22 7:07:00 EDT, Dry Weight Start Date: 03/06/23 Status: Ordered Freestyle Lite Test Strips See Instructions, # 180 each, Refills 3, Tot. Refills 3, Maintenance, Use to test blood sugar twicedaily for DM2 E11.9 3 month supply, 09/24/19 12:10:00 EST, Compound, 159, cm, 05/05/19 10:45:00 EDT, Height Start Date: 09/24/19 Status: Ordered gabapentin 300 mg oral capsule 1, capsule, By Mouth, Daily at bedtime, # 90 capsule, Refills 3, Maintenance, 05/27/22 18:05:00 EDT, Route to Pharmacy Electronically, [id number], 160, cm, 05/01/22 8:19:00 EDT, Height, 65, kg, 04/28/22 7:07:00 EDT, Dry Weight Start Date: 05/27/22 Status: Ordered glipiZIDE 10 mg oral tablet 1 tablet, By Mouth, 2 times a day, # 180 tablet, 3 Refills, Maintenance, 09/22/22 12:28:00 EST, [id number], 160, cm, 09/09/22 14:01:00 EST, Height, 65, kg, 04/28/22 7:07:00 EDT, Dry Weight Start Date: 09/22/22 Status: Ordered metoprolol 50 mg oral tablet, extended release 50 mg, 1, tablet, By Mouth, Daily, # 90 tablet, Refills 3, Tot. Refills 3, Maintenance, 09/25/20 15:22:00 EST, Route to Pharmacy Electronically, [facility], Partial fill upon patient request if the prescription is for a schedule II opioid d... Start Date: 09/25/20 Status: Ordered Metoprolol Succinate ER 50 mg oral tablet, extended release 1 tablet, By Mouth, Daily, # 90 tablet, 3 Refills, Maintenance, 10/10/22 20:33:00 EDT, [id number], 160, cm, 09/24/22 9:03:00 EST, Height, 65, kg, 04/28/22 7:07:00 EDT, Dry Weight Start Date: 10/10/22 Status: Ordered montelukast 10 mg oral tablet 1, tablet, By Mouth, Daily, # 30 tablet, Refills 5, Maintenance, 01/15/23 16:27:00 EDT, Route to Pharmacy Electronically, [id number], 160, cm, 12/31/22 9:21:00 EDT, Height, 65, kg, 04/28/22 7:07:00 EDT, Dry Weight Start Date: 01/15/23 Status: Ordered Pen [place], 30 G x 8 mm BD Ultra Fine II See Instructions, # 30 each, Refills 5, Tot. Refills 5, Maintenance, Use to inject insulin once daily (can give 90 day supply) E11.9 IDDM, 03/22/23 15:49:00 EDT, Supply, 160, cm, 12/31/22 9:21:00 EDT, Height, 65, kg, 04/28/22 7:07:00 EDT, Dry Weight Start Date: 03/22/23 Status: Ordered ProAir HFA 90 mcg/inh inhalation aerosol with adapter 2, puffs, Inhalation, Every 6 hours, PRN, # 8.5 Gm, Refills 6, Tot. Refills 6, Maintenance, 11/10/21 10:21:00 EDT, Aerosol, Route to Pharmacy Electronically, [id number], [id number], 159, cm, 11/10/21 9:57:00 EDT, H... Start Date: 11/10/21 Status: Ordered terazosin 5 mg oral capsule 1, capsule, By Mouth, Daily at bedtime, # 90 capsule, Refills 1, Maintenance, 02/02/23 10:35:00 EDT, Route to Pharmacy Electronically, [id number], 160, cm, 12/31/22 9:21:00 EDT, Height, 65, kg, 04/28/22 7:07:00 EDT, Dry Weight Start Date: 02/02/23 Status: Ordered torsemide 20 mg oral tablet 2 tablet = 40 mg, By Mouth, Daily, # 180 tablet, 3 Refills, Maintenance, 09/09/22 14:25:00 EST, [facility], Partial fill upon patient request if the prescription is for a schedule II opioid drug., 160, cm, 09/09/22 14:01:00 EST, Height, 65,... Start Date: 09/09/22 Stop Date: 09/04/23 Status: Ordered Trelegy Ellipta See Instructions, 1 Inhalation Daily 100/62.5/25 replaces Advair Samples given, 0 Refills, Maintenance, 01/19/23 14:15:00 EDT, Partial fill upon patient request if the prescription is for a schedule II opioid drug. Start Date: 01/19/23 Status: Ordered Tresiba FlexTouch 200 units/mL subcutaneous solution See Instructions, 66 units daily, # 4 each, 5 Refills, Maintenance, 03/22/23 15:46:00 EDT, [facility], Partial fill upon patient request if the prescription is for a schedule II opioid drug., 160, cm, 12/31/22 9:21:00 EDT, Height, 65, kg, 1... Start Date: 03/22/23 Status: Ordered Problem List Condition Confirmation Course Effective Dates Status Health Status Informant Anemia of chronic disease Confirmed Active Aortic stenosis 1, 2 Confirmed Active Bacterial endocarditis Confirmed Active BPH (benign prostatic hypertrophy) 3 Confirmed Active Carotid artery stenosis 4 Confirmed Active Chronic renal disease, stage III Confirmed Active Colonoscopy 5, 6 Confirmed Active CHF (congestive heart failure) Confirmed Active CAD (coronary artery disease) 7 Confirmed Active Nocturnal leg cramps Confirmed Active Diastolic dysfunction Confirmed Active Ex-smoker, quit 1995 Confirmed Active Fatigue Confirmed Active H/O aortic valve replacement Confirmed Active Hx of CABG Confirmed Active HTN (hypertension) Confirmed Active Hypercholesterolemia Confirmed Active Hyperuricemia Confirmed Active Erectile dysfunction Confirmed Active Microhematuria Confirmed Active Asthma, mild intermittent, well-controlled 8 Confirmed Active Asthma, mild persistent Confirmed Active 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 2by echo 2009 mild 3elevated, prostate biopsy negative 4less than 50 % b/l by u/s 2009 5colo 2012 nl, repeat 2022 [address]609 normal, repeat 2010 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 8Methacholine challenge test 2014 positive for asthma. 9Dr. Batlan 2014 10Patient declines further PSA testing as of October 2015. Vital Signs Most recent to oldest [Reference Range]: 1 Height 160 cm (04/02/23 10:13 AM) Weight 66.9 kg (04/02/23 10:13 AM) Oxygen Saturation [94-100 %] 95 % (04/02/23 10:13 AM) Pulse Rate [55-90 bpm] 64 bpm (04/02/23 10:13 AM) Body Mass Index [18.5-24.99 kg/m2] 26.13 kg/m2 *H* (04/02/23 10:13 AM) Mode of Delivery (Oxygen) Room air (04/02/23 10:13 AM) Blood pressure sites Arm, left (04/02/23 10:13 AM) Weight Obtained Via Standing scale (04/02/23 10:13 AM) Social History Social History Type Response Tobacco Other: quit age 52, smoked since age 22, 1/2 ppd. Sex Note * , Anastasia: PERFORM, SIGN, VERIFY Event Display: Patient Education/Instruction Authored Date: [id number] [facility] *BMP So Frederick Pina Clinical Summary Name SÁNCHEZ HOFF Age 82 Years 1940 PCP Antony Pappas MD PCP Visit Date 04/02/2023 09:50:00 Additional Instructions: Scheduled Appointments?? Future Appointments ?No Future Appointments Scheduled Follow-Up Instructions ?? With: Address: When: Antony Pappas MD In 3 months Diagnosis Type 2 diabetes mellitus with diabetic neuropathy, unspecified; Anemia in other chronic diseases classified elsewhere; Chronic kidney disease, stage 3 unspecified; Heart failure, unspecified; Type 2 diabetes mellitus with other diabetic kidney complication; Essential (primary) hypertension; Atherosclerotic heart disease of jackson coronary artery without angina pectoris; Rheumatoid arthritis, unspecified; Mild persistent asthma, uncomplicated; Type 2 diabetes mellitus with unspecified diabetic retinopathy without macular edema; Pure hypercholesterolemia, unspecified; Arthropathic psoriasis, unspecified Medications: Please continue your medications until treatment is completed or stopped by your provider. Discuss any questions related to medications with your provider. Medications to Continue Taking That Have Changed These medications were not printed or sent to your pharmacy - insulin degludec (Tresiba FlexTouch 200 units/mL subcutaneous solution) 70 units daily. Refills: 5. Next Dose: Medications to Continue with No Changes These medications were not printed or sent to your pharmacy Albuterol (ProAir HFA 90 mcg/inh inhalation aerosol with adapter) 2 puff(s) Inhalation every 6 hours as needed for wheezing. Refills: 6. Next Dose: Amlodipine (amLODIPine 2.5 mg oral tablet) 1 tab(s) Oral Daily. Refills: 1. Next Dose: Aspirin (aspirin 81 mg oral delayed release tablet) 1 tab(s) Oral Daily. Next Dose: Atorvastatin (atorvastatin 80 mg oral tablet) 1 tab(s) Oral Daily. Refills: 1. Next Dose: dapagliflozin (Farxiga 5 mg oral tablet) 1 tab(s) Oral Daily. Refills: 2. Next Dose: Durable Medical Equipment (Freestyle Lite Test Strips) Use to test blood sugar twice daily for DM2 E11.9 3 month supply. Refills: 3. Next Dose: Durable Medical Equipment (Pen [place], 30 G x 8 mm ATOMOO Ultra Fine II) Use to inject insulin once daily (can give 90 day supply) E11.9 IDDM. Refills: 5. Next Dose: Ergocalciferol (ergocalciferol 43208 iu oral capsule) 1 capsule Oral every week. Refills: 11. Next Dose: fluticasone/umeclidinium/vilanterol (Trelegy Ellipta) 1 Inhalation Daily 100/62.5/25 replaces Advair Samples given. Next Dose: Gabapentin (gabapentin 300 mg oral capsule) 1 capsule Oral Daily at Bedtime. Refills: 3. Next Dose: GlipiZIDE (glipiZIDE 10 mg oral tablet) 1 tab(s) Oral twice a day. Refills: 3. Next Dose: Metoprolol (metoprolol 50 mg oral tablet, extended release) 1 tab(s) Oral Daily. Refills: 3. Next Dose: Metoprolol (Metoprolol Succinate ER 50 mg oral tablet, extended release) 1 tab(s) Oral Daily. Refills: 3. Next Dose: Montelukast (montelukast 10 mg oral tablet) 1 tab(s) Oral Daily. Refills: 5. Next Dose: Terazosin (terazosin 5 mg oral capsule) 1 capsule Oral Daily at Bedtime. Refills: 1. Next Dose: torsemide (torsemide 20 mg oral tablet) 2 tab(s) Oral Daily for 90 Days. Refills: 3. Next Dose: Allergy Info:?? NKA Medications Given This Visit Future Orders ?Comprehensive Metabolic Panel? Order Date:04/02/23?- Complete on or after?04/02/23 ?Hemoglobin A1C (Monitoring)? Order Date:04/02/23?- Complete on or after?04/02/23 ?Direct LDL? Order Date:04/02/23?- Complete on or after?04/02/23 ?CBC? Order Date:04/02/23?- Complete on or after?04/02/23 ?Microalbumin Urine? Order Date:04/02/23?- Complete on or after?04/02/23 ?Thyroid Panel? Order Date:04/02/23?- Complete on or after?04/02/23 ?B Type Natriuretic Peptide? Order Date:04/02/23?- Complete on or after?04/02/23 Vital Signs Height 160 cm Weight 66.9 kg BMI 26.13 kg/m2 Blood Pressure / Temperature Pulse Rate 64 bpm Respiratory Rate 02 Sat Mode of Delivery 95 %/Room air You can now view a summary of your hospital visit from the comfort of your home through a free online portal called [employer]. [employer] is a website that allows you to securely view your medical information including discharge summary, medications and follow-up visits. ??You can alsosend a secure electronic message to your doctor???s office to request appointments, renew medications or just ask a question. You can enroll at [email or web address] or register during your next office visit. Disclaimer:?? The information provided is of a general nature and is intended to be used in conjunction with the recommendations and advice of your health care practitioner. ??Every effort has been made to ensure that the information provided is accurate and complete at the time it is provided to you however, as your needs change, or, as new ??information becomes available, different or additional instructions may be required. If you have questions, please consult with your primary care provider or pharmacist, as appropriate. ??This information is not intended to serve as substitution for assessment and evaluation by a qualified health care provider. If you do not have a primary care provider, you may find a [facility] provider by calling [facility] at [phone]. [facility], in keeping with [facility] guidance, no longer requires face masks for staff, patientsor visitors in most situations. Similar to time spent indoors at other locations, there is the chance that you were exposed to respiratory viruses during your time with us (such as flu or COVID-19).? If you develop symptoms concerning for a viral respiratory infection, please seek testing (and treatment if indicated) from your medical provider or home test kit. For information about the plan of care including goals and instructions for your diagnosis, please see the patient education orders section of this document. Patient Education Materials?? The content of this educational material or handout may have been modified, supplemented, or adapted from its original content and format to support your individualized medical care. Patient Care team information Care Team Personnel Name: Eliza Alejandre RN Position: [facility] RN Member Role: Primary Care Nurse Name: Breanna Moreno Position: [facility] Outreach Member Role: [employer] Consulting Physician Name: Antony Pappas MD Position: [facility] Physician - Primary Care Member Role: PCP Address: Address: [address] [place] [id number]- Name: Silvia Lawrence RN Position: [facility] RN Member Role: Primary Care Nurse Name: Sahra ([employer]) Sarah Position: [facility] quality assurance clerk Member Role: Director Information Security Name: Heather Pardo Position: [facility] TA Member Role: [employer] Consulting Physician Name: Laura Chapin RN Position: [facility] RN Member Role: Primary Care Nurse Name: Lenora Martines NP Position: Reference Physician Member Role: Primary Care Nurse Address: Address: [address] [place] [id number]- Name: Carrol Strauss RN Position: [facility] AMB Nurse Member Role: Primary Care Nurse Name: Claire Carr RN Position: [facility] RN Member Role: Primary Care Nurse Name: Rachel Robledo RN Position: [facility] RN Member Role: Primary Care Nurse Name: Richa Owens RN Position: [facility] RN Member Role: Primary Care Nurse Care Team Related Persons Name: J LUIS HOFF Address: [address] [place] [address] Name: HARVINDER FRANCISCO Address: home [address] [place] [address]
--- OUTSIDE RECORDS SUMMARY | 2024-05-22 07:09 | XMS_ITS | Continuity of Care Document ---
Author Organization [facility] Ponce lt Address [address] [place] [address]- Care Team Providers Care Accountant Auditor Name Role Phone Antony Pappas MD Primary Care Physician Encounter [facility] Date(s): 06/10/22 - 06/17/22 [facility] Adult [address] [place] [address]- Encounter Diagnosis CHF (congestive heart failure)(Discharge Diagnosis) - 06/10/22 Chronic renal disease, stage III(Discharge Diagnosis) - 06/10/22 Diabetic neuropathy(Discharge Diagnosis) - 06/10/22 Background diabetic retinopathy(Discharge Diagnosis) - 06/10/22 Psoriatic arthritis(Discharge Diagnosis) - 06/10/22 RA (rheumatoid arthritis)(Discharge Diagnosis) - 06/10/22 HTN (hypertension)(Discharge Diagnosis) - 06/10/22 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) - 06/10/22 Attending Physician: Antony Pappas MD Allergies, Adverse Reactions, Alerts No Known Allergies Immunizations Given and Recorded Vaccine Date Status Refusal Reason [id number] 12y+ bivalent booster vax 06/10/22 Given influenza [...] tetanus-diphtheria toxoids (Td) 07/26/98 Given 1Result Comment: [facility] # 2 scheduled for 10/02/20 2Admin Note: given in clinic 3Admin Note: vis given 4Admin Note: BIOMEDICAL RADHA 5Admin Note: [facility] Rad[facility] of [facility] [place] 6Admin Note: given in clinic Medications Advair Diskus 250 mcg-50 mcg inhalation powder 1, puffs, Inhalation, 2 times a day, Give 3 month supply, # 3 each, Refills 3, Tot. Refills 3, Maintenance, 09/26/21 10:53:00 EST, Powder, Route to Pharmacy Electronically, [id number], [facility], 159,... Start Date: 09/26/21 Status: Ordered amLODIPine 2.5 mg oral tablet 1 tablet, By Mouth, Daily, # 90 tablet, 1 Refills, [facility], 159, cm, 11/26/21 11:06:00 EDT, Height Start Date: 12/09/21 Status: Ordered aspirin 81 mg oral delayed release tablet 81 mg, 1, tablet, By Mouth, Daily, # 30 tablet, Refills 0, Maintenance, 09/07/18 15:22:30 EST Start Date: 09/07/18 Status: Ordered atorvastatin 80 mg oral tablet 1 tablet, By Mouth, Daily, # 90 tablet, 1 Refills, Maintenance, 02/14/22 11:19:00 EDT, [facility], 160, cm, 02/02/22 8:07:00 EDT, Height Start Date: 02/14/22 Status: Ordered ergocalciferol 61721 iu oral capsule 1, capsule, By Mouth, Every week, # 5 capsule, Refills 11, Route to Pharmacy Electronically, [facility], 159, cm, 12/29/21 10:39:00 EDT, Height Start Date: 01/07/22 Status: Ordered Freestyle Lite Test Strips See [...] 05/27/22 18:05:00 EDT, Route to Pharmacy Electronically, [facility], 160, cm, 05/01/22 8:19:00 EDT, Height, 65, kg, 04/28/22 7:07:00 EDT, Dry Weight Start Date: 05/27/22 Status: Ordered glipiZIDE 10 mg oral tablet 1 tablet, By Mouth, 2 times a day, # 180 tablet, 1 Refills, [facility], 159, cm, 11/21/21 11:16:00 EDT, Height Start Date: 11/25/21 Status: Ordered Insulin Syringe, BD Ultra-Fine 0.5 cc 31 G x 8 mm (5/16in) See Instructions, # 60 each, Refills 11, Tot. Refills 11, Maintenance, Use twice a day with NPH insulin DM2 E11.9, 02/11/18 10:01:24 EDT, Compound Start Date: 02/11/18 Status: Ordered metoprolol 50 mg oral tablet, extended release 50 mg, 1, tablet, By Mouth, Daily, # 90 tablet, Refills 3, Tot. Refills 3, Maintenance, 09/25/20 15:22:00 EST, Route to Pharmacy Electronically, [facility], Partial fill upon patient request if the prescription is for a schedule II opioid d... Start Date: 09/25/20 Status: Ordered ProAir HFA 90 mcg/inh inhalation aerosol with adapter 2, puffs, Inhalation, Every 6 hours, PRN, # 8.5 Gm, Refills 6, Tot. Refills 6, Maintenance, 11/10/21 10:21:00 EDT, Aerosol, Route to Pharmacy Electronically, [id number], [facility], 159, cm, 11/10/21 9:57:00 EDT, H... Start Date: 11/10/21 Status: Ordered ReliOn/Novolin N 100 units/mL subcutaneous injection See Instructions, INJECT 18 UNITS SUBCUTANEOUSLY IN THE MORNING AND 9 IN THE EVENING, # 10 mL, 0 Refills, Maintenance, 05/07/22 8:49:00 EDT, [facility], 160, cm, 05/01/22 8:19:00 EDT, Height, 65, kg, 04/28/22 7:07:00 EDT, Dry Weight Start Date: 05/07/22 Status: Ordered ReliOn/Novolin N 100 units/mL subcutaneous injection See Instructions, INJECT 18 UNITS SUBCUTANEOUSLY IN THE MORNING AND 9 IN THE EVENING, # 10 mL, 10 Refills, Maintenance, 06/10/22 11:03:00 EST, [facility], 160, cm, 06/10/22 10:45:00 EST, Height, 65, kg, 04/28/22 7:07:00 EDT, Dry Weight Start Date: 06/10/22 Status: Ordered Singulair 10 mg oral tablet 10 mg, 1, tablet, By Mouth, Daily, # 30 tablet, Refills 6, Tot. Refills 6, Maintenance, 11/10/21 10:21:00 EDT, Route to Pharmacy Electronically, [facility], Partial fill upon patient request if the prescription is for a schedule II opioid d... Start Date: 11/10/21 Status: Ordered terazosin 5 mg oral capsule 1, capsule, By Mouth, Daily at bedtime, # 90 capsule, Refills 1, Route to Pharmacy Electronically, [facility], 160, cm, 01/30/22 5:01:00 EDT, Height Start Date: 02/01/22 Status: Ordered torsemide 20 mg oral tablet 2 tablet = 40 mg, By Mouth, Every 48 hours, # 30 tablet, 11 Refills, Maintenance, 06/10/22 11:04:00EST, Tablet, Partial fill upon patient request if the prescription is for a schedule II opioid drug. Start Date: 06/10/22 Stop Date: 06/05/23 Status: Ordered Problem List Condition Confirmation Course [...] u/s 2009 5colo 2012 nl, repeat 2022 33528 normal, repeat 2010 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 8Methacholine challenge test 2014 positive for asthma. 9Dr. Batlan 2014 10Patient declines further PSA testing as of October 2015. Diagnosis Diagnosis Type Effective Dates Health Status Clinical Service Informant CHF (congestive heart failure) Discharge Diagnosis 06/10/22 Chronic renal disease, stage III Discharge Diagnosis 06/10/22 Diabetic neuropathy Discharge Diagnosis 06/10/22 Background diabetic retinopathy Discharge Diagnosis 06/10/22 Psoriatic arthritis Discharge Diagnosis 06/10/22 RA (rheumatoid arthritis) Discharge Diagnosis 06/10/22 HTN (hypertension) Discharge Diagnosis 06/10/22 Type II diabetes mellitus with renal manifestations Discharge Diagnosis 06/10/22 Vital Signs Most recent to oldest [Reference Range]: 1 Height 160 cm (06/10/22 10:45 AM) Weight 66.0 kg (06/10/22 10:45 AM) Oxygen Saturation [94-100 %] 92 % *L* (06/10/22 10:45 AM) Pulse Rate [55-90 bpm] 63 bpm (06/10/22 10:45 AM) Body Mass Index [18.5-24.99 kg/m2] 25.78 kg/m2 *H* (06/10/22 10:45 AM) Blood Pressure [90-138/55-84 mm Hg] 100/ 58mm Hg (06/10/22 10:45 AM) Mode of Delivery (Oxygen) Room air (06/10/22 10:45 AM) Blood pressure sites Arm, left (06/10/22 10:45 AM) Weight Obtained Via Standing scale (06/10/22 10:45 AM) Social History Social History Type Response Tobacco Other: quit age 52, smoked since age 22, 1/2 ppd. Sex Patient Care team information Care Team Personnel Name: Eliza Alejandre RN Position: [facility] RN Member Role: Primary Care Nurse Name: Breanna Moreno Position: [facility] Outreach Member Role: Lifetime Consulting Physician Name: Antony Pappas MD Position: [facility] Primary Care Physician Member Role: PCP Address: Address: [address] [place] [address]- [place] Name: Silvia Lawrence RN Position: [facility] RN Member Role: Primary Care Nurse Name: Laura Chapin RN Position: [facility] RN Member Role: Primary Care Nurse Name: Lenora Martines NP Position: Reference Physician Member Role: Primary Care Nurse Address: Address: [address] [place] [address]- [place] Name: Carrol Strauss RN Position: [facility] AMB Nurse Member Role: Primary Care Nurse Name: Donya Mitchell RN Position: [facility] RN Member Role: Primary Care Nurse Name: Claire Carr RN Position: [facility] RN Member Role: Primary Care Nurse Name: Rachel Robledo RN Position: [facility] RN Member Role: Primary Care Nurse Name: Richa Owens RN Position: [facility] RN Member Role: Primary Care Nurse Care Team Related Persons Name: J LUIS HOFF Address: home [address] [place] [address] Name: HARVINDER FRANCISCO Address: home [address] [place] [address]
--- OUTSIDE RECORDS SUMMARY | 2024-05-22 07:09 | XMS_ITS | Continuity of Care Document ---
Author Organization [facility] ter Address [address] [place] [id number]- Care Team Providers Care Bobtail Driver Name Role Phone Antony Pappas MD Primary Care Physician [phone] Encounter [facility] Date(s): 02/14/22 - 03/22/[address] [address]- Attending Physician: Wan Greenberg MD Admitting Physician: Wan Greenberg MD Referring Physician: Mary Jo Alejandra MD Allergies, Adverse Reactions, Alerts No Known Allergies Immunizations Given and Recorded Vaccine Date Status Refusal Reason SARS-CoV-2 (COVID-19) mRNA BNT-162b2 vac 12/29/21 Given SARS-CoV-2 (COVID-19) mRNA BNT-162b2 vac 05/21/21 Recorded SARS-CoV-2 (COVID-19) mRNA BNT-162b2 vac 10/08/20 Recorded SARS-CoV-2 (COVID-19) mRNA BNT-162b2 vac 10/02/20 Recorded SARS-CoV-2 (COVID-19) mRNA BNT-162b2 vac 1 09/11/20 Recorded SARS-CoV-2 (COVID-19) mRNA BNT-162b2 vac 09/10/20 Recorded influenza virus vaccine, inactivated 05/23/21 Give n influenza virus vaccine, inactivated 03/18/20 Olegario rded influenza virus vaccine, inactivated 05/05/19 Give n influenza virus vaccine, inactivated 05/13/17 Give n influenza virus vaccine, inactivated 05/21/16 Give n influenza virus vaccine, inactivated 04/24/15 Give n influenza virus vaccine, inactivated 05/09/13 Give n influenza virus vaccine, inactivated 05/13/11 Give n influenza virus vaccine, inactivated 07/26/04 Give n zoster vaccine, inactivated 05/07/20 Recorded zoster vaccine, [...] tetanus-diphtheria toxoids (Td) 07/26/98 Given 1Result Comment: [facility] # 2 scheduled for 10/02/20 2Admin Note: given in clinic 3Admin Note: vis given 4Admin Note: BIOMEDICAL RADHA 5Admin Note: [facility]ical Rad[facility] of [facility] [place] [place] 6Admin Note: given in clinic Medications Advair Diskus 250 mcg-50 mcg inhalation powder 1, puffs, Inhalation, 2 times a day, Give 3 month supply, # 3 each, Refills 3, Tot. Refills 3, Maintenance, 09/26/21 10:53:00 EST, Powder, Route to Pharmacy Electronically, [id number], Pharmacy, 159,... Start Date: 09/26/21 Status: Ordered amLODIPine 2.5 mg oral tablet 1 tablet, By Mouth, Daily, # 90 tablet, 1 Refills, [facility], 159, cm, 11/26/21 11:06:00 EDT, Height Start Date: 12/09/21 Status: Ordered aspirin 81 mg oral delayed release tablet 81 mg, 1, tablet, By Mouth, Daily, # 30 tablet, Refills 0, Maintenance, 09/07/18 15:22:30 EST Start Date: 09/07/18 Status: Ordered atorvastatin 80 mg oral tablet 1 tablet, By Mouth, Daily, # 90 tablet, 1 Refills, Maintenance, 02/14/22 11:19:00 EDT, [facility], 160, cm, 02/02/22 8:07:00 EDT, Height Start Date: 02/14/22 Status: Ordered ceftriaxone 1 gm/50 ml intravenous solution = 1 Gm, IV Infusion, Daily, for 36 days, # 36 each, 0 Refills, Acute 04/25/22 12:21:00 EDT, 03/20/22 12:21:00 EDT, Partial fill upon patient request if the prescription is for a schedule II opioid drug. Start Date: 03/20/22 Stop Date: 04/25/22 Status: Ordered Entresto 24 mg-26 mg oral tablet 1 tablet, By Mouth, 2 times a day, # 60 tablet, 3 Refills, Maintenance, 03/20/22 12:20:00 EDT, Tablet, [facility], Partial fill upon patient request if the prescription is for a schedule II opioid drug., 1 tablet By Mouth 2 times a day,x... Start Date: 03/20/22 Stop Date: 07/18/22 Status: Ordered ergocalciferol 50965 iu oral capsule 1, capsule, By Mouth, Every week, # 5 capsule, Refills 11, Route to Pharmacy Electronically, [facility], 159, cm, 12/29/21 10:39:00 EDT, [...] at bedtime, # 90 capsule, Refills 3, Route to Pharmacy Electronically, [facility], 159, cm, 02/20/21 6:56:00 EDT, Height Start Date: 05/20/21 Status: Ordered glipiZIDE 10 mg oral tablet 1 tablet, By Mouth, 2 times a day, # 180 tablet, 1 Refills, [facility], 159, cm, 11/21/21 11:16:00 EDT, [...] 09/25/20 15:22:00 EST, Route to Pharmacy Electronically, [facility], Partial fill upon patient request if the prescription is for a schedule II opioid d... Start Date: 09/25/20 Status: Ordered ProAir HFA 90 mcg/inh inhalation aerosol with adapter 2, puffs, Inhalation, Every 6 hours, PRN, # 8.5 Gm, Refills 6, Tot. Refills 6, Maintenance, 11/10/21 10:21:00 EDT, Aerosol, Route to Pharmacy Electronically, [id number], [facility], 159, cm, 11/10/21 9:57:00 EDT, H... Start Date: 11/10/21 Status: Ordered ReliOn/Novolin N 100 units/mL subcutaneous injection See Instructions, INJECT 18 UNITS SUBCUTANEOUSLY IN THE MORNING AND 9 IN THE EVENING, # 10 mL, 5 Refills, [facility], 159, cm, 09/04/21 13:27:00 EST, Height Start Date: 10/06/21 Status: Ordered Singulair 10 mg oral tablet 10 mg, 1, tablet, By Mouth, Daily, # 30 tablet, Refills 6, Tot. Refills 6, Maintenance, 11/10/21 10:21:00 EDT, Route to Pharmacy Electronically, [facility], Partial fill upon patient request if the prescription is for a schedule II opioid d... Start Date: 11/10/21 Status: Ordered terazosin 5 mg oral capsule 1, capsule, By Mouth, Daily at bedtime, # 90 capsule, Refills 1, Route to Pharmacy Electronically, [facility], 160, cm, 01/30/22 5:01:00 EDT, Height Start Date: 02/01/22 Status: Ordered torsemide 40 mg oral tablet 1 tablet = 40 mg, By Mouth, Daily, # 30 tablet, 1 Refills, Maintenance, 03/20/22 12:20:00 EDT, [facility], Partial fill upon patient request if the prescription is for a schedule II opioid drug., 160, cm, 03/20/22 8:22:00 EDT, Height, 82... Start Date: 03/20/22 Stop Date: 05/19/22 Status: Ordered Problem List Condition Effective Dates Status Health Status Inform ant Anemia of chronic disease(Confirmed) Active Aortic stenosis(Confirmed) 1, 2 Active BPH (benign prostatic hypertrophy)(Confirmed) 3 Active Carotid artery stenosis(Confirmed) 4 Active Chronic renal disease, stage III(Confirmed) Active Colonoscopy(Confirmed) 5, 6 Active CHF (congestive heart failure)(Confirmed) Active CAD (coronary artery disease)(Confirmed) 7 Active Nocturnal leg cramps(Confirmed) Active Diastolic dysfunction(Confirmed) Active Ex-smoker, quit 1995(Confirmed) Active Fatigue(Confirmed) Active H/O aortic valve replacement(Confirmed) Active Hx of CABG(Confirmed) Active HTN (hypertension)(Confirmed) Active Hypercholesterolemia(Confirmed) Active Hyperuricemia(Confirmed) Active Erectile dysfunction(Confirmed) Active Microhematuria(Confirmed) Active Asthma, mild intermittent, well-controlled(Confirmed) 8 Active Asthma, mild persistent(Confirmed) Active Nephropathy associated with another disease(HCC)(Confirmed) Active Diabetic neuropathy(Confirmed) Active Background diabetic retinopathy(Confirmed) 9 Active Psoriatic arthritis(Confirmed) Active RA (rheumatoid arthritis)(Confirmed) Active Elevated PSA(Confirmed) 10 Active Right flank pain, chronic(Confirmed) Active Septicemia due to group B Streptococcus(Confirmed) Active Type II diabetes mellitus wi th renal manifestations(Confirmed) Active Viral pneumonia(Confirmed) Active 1Status post aortic valve replacement 2016. 2by echo 2010 mild 3elevated, prostate biopsy negative 4less than 50 % b/l by u/s 2009 5colo 2012 nl, repeat 2022 [address]1837 normal, repeat 2010 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 8Methacholine challenge test 2014 positive for asthma. 9Dr. Batlan 2014 10Patient declines further PSA testing as of October 2015. Social History Social History Type Response Tobacco Other: quit age 52, smoked since age 22, 1/2 ppd. Sex Care Team Personnel Name: Elyse LEE, Antony Ospina Address: [address] [place] [address] [place] [address]- [place]
--- OUTSIDE RECORDS SUMMARY | 2024-05-22 07:09 | XMS_ITS | Continuity of Care Document ---
Author Organization [facility] Florencia max Address [address] [place] [address]- Care Team Providers Care Reimbursement Liaison Name Role Phone Antony Pappas MD Primary Care Physician [phone] [place] [facility] [place] 12/29/19 [facility] [address] [place] [address] [facility] Attending Physician: Wero Gayle Admitting Physician: AdmtrWero Referring Physician: Admtr, Ar8 Allergies, Adverse Reactions, Alerts Substance Reaction Severity Status NKA Active Immunizations Given and Recorded Vaccine Date Status Refusal Reason influenza virus vaccine, inactivated 05/05/19 Give n influenza virus vaccine, inactivated 05/13/17 Give n influenza virus vaccine, inactivated 05/21/16 Give n influenza virus vaccine, inactivated 04/24/15 Give n influenza virus vaccine, inactivated 05/09/13 Give n influenza virus vaccine, inactivated 05/13/11 Give n influenza virus vaccine, inactivated 07/26/04 Give n tetanus/diphtheria/pertussis, acel(Tdap) 05/17/18 Given Fluzone (oldterm) 05/04/18 Given pneumococcal 13-valent vaccine 11/12/14 Given Influenza Virus Vaccine (oldterm) 05/11/14 Given Influenza Virus Vaccine (oldterm) 1 05/31/07 Given Influenza Virus Vaccine (oldterm) 06/08/06 Given Fluzone Preservative-Free (oldterm) 2 04/19/12 Giv en FluLaval (oldterm) 3 05/27/10 Given FluLaval (oldterm) 4 04/30/09 Given Zostavax (oldterm) 03/25/09 Given Pneumococcal Vaccine (oldterm) 08/23/08 Given Pneumococcal Vaccine (oldterm) 2/1/02 Given Tet/Diphth/Acel, Pertussis (oldterm) 08/23/08 Give n Influenza Inactive (IM) (oldterm) 5 05/15/08 Given tetanus-diphtheria toxoids (Td) 07/26/98 Given 1Admin Note: given in clinic 2Admin Note: vis given 3Admin Note: BIOMEDICAL RADHA 4Admin Note: Biomedical Radha [facility] 5Admin Note: given in clinic Medications albuterol 0.083% inhalation solution 3 mL = 2.5 mg, Inhalation, Every 6 hours, # 120 each, 11 Refills, Maintenance, 06/15/17 8:39:07, Solution Start Date: 06/15/17 Status: Ordered aspirin 81 mg oral delayed release tablet 81 mg, 1, tablet, By Mouth, Daily, # 30 tablet, Refills 0, Maintenance, 09/07/18 15:22:30 EST Start Date: 09/07/18 Status: Ordered atorvastatin 80 mg oral tablet 1 tablet = 80 mg, By Mouth, Daily, # 90 tablet, 3 Refills, Maintenance, Tablet, Route to Pharmacy Electronically, [id number], [facility] Start Date: 11/18/18 Status: Ordered Breo Ellipta 100 mcg-25 mcg/inh inhalation powder 1 puffs, Inhalation, Daily, In place of QVAR 90 day supply, # 3 each, 1 Refills, Maintenance, 09/27/19 10:26:00 EST, Powder, [facility], 1 puffs Inhalation Daily,Instr:In place of QVAR; 90day supply, 159, cm, 05/05/19 10:45:00 EDT, Height Start Date: 09/27/19 Status: Ordered Freestyle Lite Test Strips See Instructions, # 180 each, Refills 3, Tot. Refills 3, Maintenance, Use to test blood sugar twicedaily for DM2 E11.9 3 month supply, 09/24/19 12:10:00 EST, Compound, 159, cm, 05/05/19 10:45:00 EDT, Height Start Date: 09/24/19 Status: Ordered gabapentin 300 mg oral capsule 300 mg, 1, capsule, By Mouth, Daily at bedtime, # 90 capsule, Refills 3, Tot. Refills 3, Maintenance, 12/06/19 8:34:00 EDT, Route to Pharmacy Electronically, [facility], 159, cm, 12/06/19 7:56:00 EDT, Height Start Date: 12/06/19 Stop Date: 11/30/20 Status: Ordered glipiZIDE 10 mg oral tablet 1 tablet = 10 mg, By Mouth, 2 times a day, # 180 tablet, 1 Refills, Maintenance, 08/29/19 11:00:00 EST, Tablet, [facility], 159, cm, 05/05/19 10:45:00 EDT, Height Start Date: 08/29/19 Status: Ordered Insulin Syringe, BD Ultra-Fine 0.5 cc 31 G x 8 mm (5/16in) See Instructions, # 60 each, Refills 11, Tot. Refills 11, Maintenance, Use twice a day with NPH insulin DM2 E11.9, 02/11/18 10:01:24 EDT, Compound Start Date: 02/11/18 Status: Ordered Lasix 20 mg oral tablet 20 mg, By Mouth, 2 times a day, # 180 each, Refills 1, Tot. Refills 1, Maintenance, 10/31/18 14:12:28 EDT, Route to Pharmacy Electronically, [id number], [facility] Start Date: 10/31/18 Status: Ordered lisinopril 20 mg oral tablet 20 mg, 1, tablet, By Mouth, Daily, # 30 tablet, Refills 0, Tot. Refills 0, Maintenance, 11/01/18 13:59:18 EDT, Route to Pharmacy Electronically, [id number], [id number] Start Date: 11/01/18 Status: Ordered metoprolol 25 mg oral tablet 25 mg, 1, tablet, By Mouth, 2 times a day, # 180 tablet, Refills 1, Tot. Refills 1, Maintenance, 08/29/19 11:02:00 EST, Route to Pharmacy Electronically, [facility], No change from last Rx. from 02/06/19, 159, cm, 05/05/19 10:45:00 EDT, Height Start Date: 08/29/19 Status: Ordered ProAir HFA 90 mcg/inh inhalation aerosol with adapter 2, puffs, Inhalation, Every 6 hours, PRN, # 8.5 Gm, Refills 1, Tot. Refills 1, Maintenance, 02/01/19 10:58:44 EDT, Aerosol, Route to Pharmacy Electronically, [id number], [facility] Start Date: 02/01/19 Status: Ordered ReliOn/Novolin N 100 units/mL subcutaneous injection See Instructions, INJECT 18 UNITS SUBCUTANEOUSLY IN THE MORNING AND 9 IN THE EVENING, # 10 mL, 3 Refills, Maintenance, 08/17/19 13:20:00 EST, [facility], 90 day, 159, cm, 05/05/19 10:45:00EDT, Height Start Date: 08/17/19 Status: Ordered terazosin 5 mg oral capsule 5 mg, 1, capsule, By Mouth, Daily at bedtime, # 90 capsule, Refills 3, Tot. Refills 3, Maintenance,01/10/19 11:43:33 EDT, Route to Pharmacy Electronically, [id number], [facility] Start Date: 01/10/19 Status: Ordered Vitamin D 96139 iu oral capsule 50,000 International_Units, 1, capsule, By Mouth, Every week, # 5 capsule, Refills 11, Tot. [id number], Maintenance, 05/05/19 10:57:40 EDT, Route to Pharmacy Electronically, [id number], [facility] Start Date: 05/05/19 Status: Ordered Problem List Condition Effective Dates [...] Diastolic dysfunction(Confirmed) Active Ex-smoker, quit 1995(Confirmed) Active H/O aortic valve replacement(Confirmed) Active Hx of CABG(Confirmed) Active HTN (hypertension)(Confirmed) Active Hypercholesterolemia(Confirmed) Active Hyperuricemia(Confirmed) Active Erectile dysfunction(Confirmed) Active Microhematuria(Confirmed) Active Asthma, mild intermittent, well-controlled(Confirmed) 8 Active Asthma, mild persistent(Confirmed) Active Nephropathy associated with another disease(HCC)(Confirmed) Active Diabetic neuropathy(Confirmed) Active Background diabetic retinopathy(Confirmed) 9 Active Psoriatic arthritis(Confirmed) Active RA (rheumatoid arthritis)(Confirmed) Active Elevated PSA(Confirmed) 10 Active Type II diabetes mellitus wi th renal manifestations(Confirmed) Active 1Status post aortic valve replacement 2017. 2by echo 2009 mild 3elevated, prostate biopsy negative 4less than 50 % b/l by u/s 2009 5colo 2012 nl, repeat 2022 16895 normal, repeat 2010 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 8Methacholine challenge test 2014 positive for asthma. 9DrAngy Bynum 2014 10Patient declines further PSA testing as of October 2015. Social History Social History Type Response Smoking Status Former smoker; Other : Smoking age 55. social smoker; entered on: 09/29/16 Sex
--- OUTSIDE RECORDS SUMMARY | 2024-05-22 07:09 | XMS_ITS | Continuity of Care Document ---
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 Name Role Phone Antony Pappas MD Primary Care Physician [phone] [place] [facility] [place]23 [place] 07[place]23 [facility] Adult [address] [place] [address]- Allergies, Adverse Reactions, Alerts No Known Allergies Immunizations Given and Recorded Vaccine Date Status Refusal Reason pneumococcal 20-valent conjugate vaccine 12/31/22 Given [id number] 12y+ bivalent booster vax 06/10/22 Given influenza [...] tetanus-diphtheria toxoids (Td) 07/26/98 Given 1Result Comment: [facility] # 2 scheduled for 10/02/20 2Admin Note: given in clinic 3Admin Note: vis given 4Admin Note: BIOMEDICAL RADHA 5Admin Note: Biomedical Radha [facility] 6Admin Note: given in clinic Medications amLODIPine 2.5 mg oral tablet 1 tablet, By Mouth, Daily, # 90 tablet, 1 Refills, Maintenance, 07/17/23 12:36:00 EST, [facility], 160, cm, 05/17/23 10:46:00 EDT, Height, 65, kg, 04/28/22 7:07:00 EDT, Dry Weight Start Date: 07/17/23 Status: Ordered aspirin 81 mg oral delayed release tablet 81 mg, 1, tablet, By Mouth, Daily, # 30 tablet, Refills 0, Maintenance, 09/07/18 15:22:30 EST Start Date: 09/07/18 Status: Ordered atorvastatin 80 mg oral tablet 1 tablet, By Mouth, Daily, # 90 tablet, 1 Refills, Maintenance, 02/23/23 22:57:00 EDT, [facility], 160, cm, 12/31/22 9:21:00 EDT, Height, 65, kg, 04/28/22 7:07:00 EDT, Dry Weight Start Date: 02/23/23 Status: Ordered ergocalciferol 78203 iu oral capsule 1, capsule, By Mouth, Every week, # 5 capsule, Refills 11, Tot. Refills 11, Maintenance, 03/09/23 11:38:00 EDT, Route to Pharmacy Electronically, [facility], 160, cm, 12/31/22 9:21:00 EDT,Height, 65, kg, 04/28/22 7:07:00 EDT, Dry Weight Start Date: 03/09/23 Status: Ordered Farxiga 5 mg oral tablet 1 tablet, By Mouth, Daily, # 90 tablet, 3 Refills, Maintenance, 06/02/23 9:27:00 EST, [facility], 160, cm, 05/17/23 10:46:00 EDT, Height, 65, kg, 04/28/22 7:07:00 EDT, Dry Weight Start Date: 06/02/23 Stop Date: 05/27/24 Status: Ordered finasteride 1 mg oral tablet 1 tablet = 1 mg, By Mouth, Daily, Stop Flomax and continue terazosin, # 30 tablet, 1 Refills, Maintenance, 07/13/23 15:40:00 EST, Tablet, [facility], Partial fill upon patient request if the prescription is for a schedule II opioid drug., 1... Start Date: 07/13/23 Status: Ordered Freestyle Lite Test Strips See [...] 05/27/22 18:05:00 EDT, Route to Pharmacy Electronically, [facility], 160, cm, 05/01/22 8:19:00 EDT, Height, 65, kg, 04/28/22 7:07:00 EDT, Dry Weight Start Date: 05/27/22 Status: Ordered glipiZIDE 10 mg oral tablet 1 tablet, By Mouth, 2 times a day, # 180 tablet, 3 Refills, Maintenance, 09/22/22 12:28:00 EST, [facility], 160, cm, 09/09/22 14:01:00 EST, Height, 65, kg, 04/28/22 7:07:00 EDT, Dry Weight Start Date: 09/22/22 Status: Ordered metoprolol 50 mg oral tablet, extended release 50 mg, 1, tablet, By Mouth, Daily, # 90 tablet, Refills 3, Tot. Refills 3, Maintenance, 09/25/20 15:22:00 EST, Route to Pharmacy Electronically, [facility], Partial fill upon patient request if the prescription is for a schedule II opioid d... Start Date: 09/25/20 Status: Ordered Metoprolol Succinate ER 50 mg oral tablet, extended release 1 tablet, By Mouth, Daily, # 90 tablet, 3 Refills, Maintenance, 10/10/22 20:33:00 EDT, [facility], 160, cm, 09/24/22 9:03:00 EST, Height, 65, kg, 04/28/22 7:07:00 EDT, Dry Weight Start Date: 10/10/22 Status: Ordered montelukast 10 mg oral tablet 1, tablet, By Mouth, Daily, # 30 tablet, Refills 5, Tot. Refills 5, Maintenance, 06/28/23 10:39:00 EST, Route to Pharmacy Electronically, [facility], 160, cm, 05/17/23 10:46:00 EDT, Height, 65, kg, 04/28/22 7:07:00 EDT, Dry Weight Start Date: 06/28/23 Status: Ordered Pen [place], 30 G x 8 mm BD Ultra [...] 10:21:00 EDT, Aerosol, Route to Pharmacy Electronically, [id number], [facility], 159, cm, 11/10/21 9:57:00 EDT, H... Start Date: 11/10/21 Status: Ordered terazosin 5 mg oral capsule 1, capsule, By Mouth, Daily at bedtime, # 90 capsule, Refills 1, Maintenance, 07/28/23 6:19:00 EST,Route to Pharmacy Electronically, [facility], 160, cm, 05/17/23 10:46:00 EDT, Height, 65, kg, 04/28/22 7:07:00 EDT, Dry Weight Start Date: 07/28/23 Status: Ordered torsemide 20 mg oral tablet 2 tablet = 40 mg, By Mouth, Daily, # 180 tablet, 3 Refills, Maintenance, 09/09/22 14:25:00 EST, [facility], Partial fill upon patient request [...] FlexTouch 200 units/mL subcutaneous solution See Instructions, 74 units daily and increase 2 units every 3 days until FBS < 130 Max dose 90 units daily, # 5 each, 5 Refills, Maintenance, 03/22/23 15:46:00 MOLLY [facility], Partial fill upon patient request if the prescription is for a... Start Date: 03/22/23 Status: Ordered Problem List [...] u/s 2009 5colo 2012 nl, repeat 2022 62648 normal, repeat 2010 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 8Methacholine challenge test 2014 positive for asthma. 9Dr. Batlan 2014 10Patient declines further PSA testing as of October 2015. Social History Social History Type Response Tobacco Other: quit age 52, smoked since age 22, 1/2 ppd. 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) Start Jeronimo e:03/12/23 End Date:06/11/23 Status:Met Progression:Not Met Patient Care team information Care Team Personnel Name: Eliza Alejandre RN Position: [facility] RN Member Role: Primary Care Nurse Name: Breanna Moreno Position: [facility] Outreach Member Role: Lifetime Consulting Physician Name: Antony Pappas MD Position: [facility] Physician - Primary Care Member Role: PCP Address: Address: [address] [place] [address]- [place] Name: Silvia Lawrence RN Position: [facility] RN Member Role: Primary Care Nurse Name: Sahra ([facility]) Sarah Position: [facility] ore grader Member Role: Chart Computer Name: Laura Chapin RN Position: [facility] RN Member Role: Primary Care Nurse Name: Lenora Martines NP Position: Reference Physician Member Role: Primary Care Nurse Address: Address: [address] [place] [address]- [place] Name: Carrol Strauss RN Position: [facility] AMB Nurse Member Role: Primary Care Nurse Name: Claire Carr RN Position: [facility] RN Member Role: Primary Care Nurse Name: Rachel Robledo RN Position: [facility] RN Member Role: Primary Care Nurse Name: Richa Owens RN Position: [facility] RN Member Role: Primary Care Nurse Care Team Related Persons Name: J LUIS HOFF Address: home [address] [place] [address] Name: HARVINDER FRANCISCO Address: home [address] [place] [address]
--- OUTSIDE RECORDS SUMMARY | 2024-05-22 07:09 | XMS_ITS | Continuity of Care Document ---
Author Organization [facility] [address] [facility] Address [address] [place] [address]- Care Team Providers Care Manager Nursing Home Name Role Phone Antony Pappas MD Primary Care Physician Encounter [facility] [place] Date(s): 11/05/20 - 11/12/20 [facility] Adult [address] [place] [address]- Encounter Diagnosis CHF (congestive heart failure)(Discharge Diagnosis) - 11/05/20 Chronic renal disease, stage III(Discharge Diagnosis) - 11/05/20 Attending Physician: Antony Pappas MD Allergies, Adverse Reactions, Alerts Substance Reaction Severity Status NKA Active Immunizations Given and Recorded Vaccine Date Status Refusal Reason SARS-CoV-2 (COVID-19) mRNA BNT-162b2 vac 10/08/20 Recorded SARS-CoV-2 (COVID-19) mRNA BNT-162b2 vac 1 09/11/20 Recorded zoster vaccine, inactivated 05/07/20 Recorded Influenza Virus Vaccine (oldterm) 05/06/20 Recorde d Influenza Virus Vaccine (oldterm) 05/11/14 Given Influenza Virus Vaccine (oldterm) 2 05/31/07 Given Influenza Virus Vaccine (oldterm) 06/08/06 Given influenza virus vaccine, inactivated 05/05/19 Give n [...] tetanus-diphtheria toxoids (Td) 07/26/98 Given 1Result Comment: [facility] # 2 scheduled for 10/02/20 2Admin Note: given in clinic 3Admin Note: vis given 4Admin Note: BIOMEDICAL RADHA 5Admin Note: Biomedical Radha [facility] 6Admin Note: given in clinic Medications amLODIPine 2.5 mg oral tablet 2.5 mg, 1, tablet, By Mouth, Daily, # 30 tablet, Refills 11, Tot. Refills 11, Maintenance, 06/07/2011:56:00 EST, Route to Pharmacy Electronically, [facility], Partial fill upon patient request, 159, cm, 06/07/20 11:13:00 EST, Height Start Date: 06/07/20 Status: Ordered aspirin 81 mg oral delayed release tablet 81 mg, 1, tablet, By Mouth, Daily, # 30 tablet, Refills 0, Maintenance, 09/07/18 15:22:30 EST Start Date: 09/07/18 Status: Ordered atorvastatin 80 mg oral tablet 1 tablet = 80 mg, By Mouth, Daily, # 90 tablet, 1 Refills, Maintenance, 08/01/20 9:55:00 EST, Tablet, [facility], 159, cm, 07/10/20 11:05:00 EST, Height Start Date: 08/01/20 Status: Ordered Breo Ellipta 100 mcg-25 mcg/inh inhalation powder 1 puffs, Inhalation, Daily, In place of QVAR 90 day supply, # 3 each, 1 Refills, Maintenance, 10/25/20 7:59:00 EDT, Powder, [facility], 1 puffs Inhalation Daily,Instr:In place of QVAR; 90 day supply, 159, cm, 10/10/20 12:46:00 EDT, Height Start Date: 10/25/20 Status: Ordered ergocalciferol 95932 iu oral capsule 50,000 International_Units, 1, capsule, By Mouth, Every week, # 5 capsule, Refills 5, Tot. Refills 5, Maintenance, 05/29/20 13:54:00 EST, Route to Pharmacy Electronically, [facility], 159,cm, 05/24/20 8:57:00 EDT, Height Start Date: 05/29/20 Status: Ordered Freestyle Lite Test Strips See [...] 12/06/19 8:34:00 EDT, Route to Pharmacy Electronically, [facility], 159, cm, 12/06/19 7:56:00 EDT, Height Start Date: 12/06/19 Stop Date: 11/30/20 Status: Ordered glipiZIDE 10 mg oral tablet 1 tablet = 10 mg, By Mouth, 2 times a day, # 180 tablet, 0 Refills, Maintenance, 08/27/20 8:20:00 EST, Tablet, [facility], 159, cm, 07/10/20 11:05:00 EST, Height Start Date: 08/27/20 Status: Ordered Insulin Syringe, BD Ultra-Fine 0.5 cc 31 G x 8 mm (16in) See Instructions, # 60 each, Refills 11, Tot. Refills 11, Maintenance, Use twice a day with NPH insulin DM2 E11.9, 02/11/18 10:01:24 EDT, Compound Start Date: 02/11/18 Status: Ordered Lasix 20 mg oral tablet 20 mg, 1, tablet, By Mouth, 2 times a day, for 90 days, # 180 tablet, Refills 3, Tot. Refills 3, Hard Stop 10/05/21 13:15:00 EDT, 10/10/20 13:15:00 EDT, Route to Pharmacy Electronically, [facility], 159, cm, 10/10/20 12:46:00 EDT, Height Start Date: 10/10/20 Stop Date: 10/05/21 Status: Ordered Lasix 20 mg oral tablet See Instructions, 1 tablet By Mouth 2 times a day and may take 1 extra in the afternoon per PCP instructions prn /Can give 90 day supply, # 270 each, Refills 1, Tot. Refills 1, Maintenance, 10/05/21 13:15:00 EDT, Instructions Replace Required Details... Start Date: 10/05/21 Status: Ordered metoprolol 50 mg oral tablet, extended release 50 mg, 1, tablet, By Mouth, Daily, # 90 tablet, Refills 3, Tot. Refills 3, Maintenance, 09/25/20 15:22:00 EST, Route to Pharmacy Electronically, [place] [address], Partial fill upon patient request if the prescription is for a schedule II opioid d... Start Date: 09/25/20 Status: Ordered ProAir HFA 90 mcg/inh inhalation aerosol with adapter 2, puffs, Inhalation, Every 6 hours, PRN, # 8.5 Gm, Refills 1, Tot. Refills 1, Maintenance, 02/01/19 10:58:44 EDT, Aerosol, Route to Pharmacy Electronically, [id number], [facility] Start Date: 02/01/19 Status: Ordered ReliOn/Novolin N 100 units/mL subcutaneous injection See Instructions, INJECT 18 UNITS SUBCUTANEOUSLY IN THE MORNING AND 9 UNITS IN THE EVENING, # 10 mL, 1 Refills, 10/08/20 13:42:00 EDT, [facility], 159, cm, 07/10/20 11:05:00 EST, Height Start Date: 10/08/20 Status: Ordered sildenafil 25 mg oral tablet See Instructions, PRN Other, 1 tablet By Mouth Daily as needed prior to sexual intercourse, # 2 tablet, 11 Refills, Maintenance, 06/25/20 15:44:00 EST, Tablet, [facility], 159, cm, 06/25/20 9:48:00 EST, Height Start Date: 06/25/20 Status: Ordered terazosin 5 mg oral capsule See Instructions, Take 1 capsule by mouth once daily at bedtime, # 90 capsule, Refills 0, Maintenance, Instructions Replace Required Details, Route to Pharmacy Electronically, [facility], 159, cm, 10/10/20 12:46:00 EDT, Height Start Date: 10/10/20 Status: Ordered Problem List Condition Effective Dates [...] u/s 2009 5colo 2012 nl, repeat 2022 29033 normal, repeat 2010 7Status post CABG ??1. 2016. 8Methacholine challenge test 2014 positive for asthma. 9DrAngy Bynum 2014 10Patient declines further PSA testing as of October 2015. Diagnosis Diagnosis Type Effective Dates Health Status Cl inical Service Informant CHF (congestive heart failure) Discharge Diagnosis 11/05/20 Chronic renal disease, stage III Discharge Diagnosis 11/05/20 Vital Signs Most recent to oldest [Reference Range]: 1 Height 159 cm (11/05/20 10:46 AM) Weight 73.0 kg (11/05/20 10:46 AM) Oxygen Saturation [94-100 %] 96 % (11/05/20 10:46 AM) Pulse Rate [55-90 bpm] 59 bpm (11/05/20 10:46 AM) Body Mass Index [18.5-24.99] 28.88 *H* (11/05/20 10:46 AM) Blood Pressure [90-138/55-84 mm Hg] 122/ 76mm Hg (11/05/20 10:46 AM) Blood pressure sites Arm, left (11/05/20 10:46 AM) Social History Social History Type Response Smoking Status Former smoker; Other : Smoking age 55. social smoker; entered on: 09/29/16 Sex Male
--- OUTSIDE RECORDS SUMMARY | 2024-05-22 07:09 | XMS_ITS | Continuity of Care Document ---
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 Role Phone Elyse LEE, Antony Ospina Primary Care Physician [phone] [place] [facility] [place] 05/24/20 - 07/26/20 [facility] [address] [place] [id number] Attending Physician: Zulema Givens NP Admitting Physician: Tosha MENDEZ, Zulema Molina Referring Physician: Antony Pappas MD Allergies, Adverse Reactions, Alerts Substance Reaction Severity Status NKA Active Immunizations Given and Recorded Vaccine Date Status Refusal Reason zoster vaccine, inactivated 05/07/20 Recorded Influenza Virus [...] 13-valent vaccine 11/12/14 Given Fluzone Preservative-Free (oldterm) 2 04/19/12 Giv en FluLaval (oldterm) 3 05/27/10 Given FluLaval (oldterm) 4 04/30/09 Given Zostavax (oldterm) 03/25/09 Given Pneumococcal Vaccine (oldterm) 1/29/09 Given Pneumococcal Vaccine (oldterm) 08/26/01 Given Tet/Diphth/Acel, Pertussis (oldterm) 08/23/08 Give n Influenza Inactive (IM) (oldterm) 5 05/15/08 Given tetanus-diphtheria toxoids (Td) 07/26/98 Given 1Admin Note: given in clinic 2Admin Note: vis given 3Admin Note: BIOMEDICAL RADHA 4Admin Note: Biomedical Radha [facility] 5Admin Note: given in clinic Medications amLODIPine 2.5 mg oral tablet 2.5 mg, 1, tablet, By Mouth, Daily, # 30 tablet, Refills 11, Tot. Refills 11, Maintenance, 06/07/2011:56:00 EST, Route to Pharmacy Electronically, [facility], Partial fill upon patient request, [...] Daily, # 90 tablet, 1 Refills, Maintenance, 01/10/20 15:14:00 EDT, Tablet, [facility], 159, cm, 01/05/20 10:36:00 EDT, Height Start Date: 01/10/20 Status: Ordered Breo Ellipta 100 mcg-25 mcg/inh inhalation powder 1 puffs, Inhalation, Daily, In place of QVAR 90 day supply, # 3 each, 1 Refills, Maintenance, 04/15/20 14:44:00 EDT, Powder, [facility], 1 puffs Inhalation Daily,Instr:In place of QVAR; 90day supply, 159, cm, 01/30/20 15:17:00 EDT, Height Start Date: 04/15/20 Status: Ordered ergocalciferol 00597 iu oral capsule 50,000 International_Units, 1, capsule, By Mouth, Every week, # 5 capsule, Refills 5, Tot. Refills 5, Maintenance, 05/29/20 13:54:00 EST, Route to Pharmacy Electronically, [facility], 159,cm, 05/24/20 8:57:00 EDT, Height [...] 12/06/19 8:34:00 EDT, Route to Pharmacy Electronically, [facility], 159, cm, 12/06/19 7:56:00 EDT, Height Start Date: 12/06/19 Stop Date: 11/30/20 Status: Ordered glipiZIDE 10 mg oral tablet 1 tablet = 10 mg, By Mouth, 2 times a day, # 180 tablet, 0 Refills, Maintenance, 06/03/20 15:55:00 EST, Tablet, [facility], 159, cm, 05/24/20 8:57:00 EDT, Height Start Date: 06/03/20 Status: Ordered Insulin Syringe, BD Ultra-Fine 0.5 cc 31 G x 8 mm (5/16in) See Instructions, # 60 each, Refills 11, Tot. Refills 11, Maintenance, Use twice a day with NPH insulin DM2 E11.9, 02/11/18 10:01:24 EDT, Compound Start Date: 02/11/18 Status: Ordered Lasix 20 mg oral tablet 20 mg, By Mouth, 2 times a day, # 180 each, Refills 0, Tot. Refills 0, Maintenance, 06/03/20 15:55:00 EST, Route to Pharmacy Electronically, [facility], 159, cm, 05/24/20 8:57:00 EDT, Height Start Date: 06/03/20 Status: Ordered Metoprolol Tartrate 25 mg oral tablet 1 tablet, By Mouth, 2 times a day, # 180 tablet, 0 Refills, Maintenance, 06/03/20 15:55:00 EST, [facility], 159, cm, 05/24/20 8:57:00 EDT, Height Start Date: 06/03/20 Status: Ordered ProAir HFA 90 mcg/inh inhalation aerosol with adapter 2, puffs, Inhalation, Every 6 hours, PRN, # 8.5 Gm, Refills 1, Tot. Refills 1, Maintenance, 02/01/19 10:58:44 EDT, Aerosol, Route to Pharmacy Electronically, [id number], [facility] Start Date: 02/01/19 Status: Ordered ReliOn/Novolin N 100 units/mL subcutaneous injection See Instructions, INJECT 18 UNITS SUBCUTANEOUSLY IN THE MORNING AND 9 IN THE EVENING, # 10 mL, 2 Refills, Maintenance, 05/29/20 13:05:00 EST, [facility], 90 day, 159, cm, 05/24/20 8:57:00 EDT, Height Start Date: 05/29/20 Status: Ordered sildenafil 25 mg oral tablet See Instructions, PRN Other, 1 tablet By Mouth Daily as needed prior to sexual intercourse, # 2 tablet, 11 Refills, Maintenance, 06/25/20 15:44:00 EST, Tablet, [facility], 159, cm, 06/25/20 9:48:00 EST, Height Start Date: 06/25/20 Status: Ordered terazosin 5 mg oral capsule 5 mg, 1, capsule, By Mouth, Daily at bedtime, # 90 capsule, Refills 1, Tot. Refills 1, Maintenance,04/15/20 14:45:00 EDT, Route to Pharmacy Electronically, [facility], 159, cm, 01/30/20 15:17:00 EDT, Height Start Date: 04/15/20 Status: Ordered Problem List Condition Effective Dates [...] u/s 2009 5colo 2012 nl, repeat 2022 11873 normal, repeat 2010 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 8Methacholine challenge test 2014 positive for asthma. 9Dr. Batroseanna 2014 10Patient declines further PSA testing as of October 2015. Social History Social History Type Response Smoking Status Former smoker; Other : Smoking age 55. social smoker; entered on: 09/29/16 Sex Male
--- OUTSIDE RECORDS SUMMARY | 2024-05-22 07:09 | XMS_ITS | Continuity of Care Document ---
Author Organization [facility] Address [address] [place] [address]- Care Team Providers Care Patient Support Representative Name Role Phone Elyse LEE, Antony Ospina Primary Care Physician [place] [facility] [place]): [place] - 01/30/[address] [address]- Encounter Diagnosis Fever(Final) - 01/26/22 Viral pneumonia(Final) - 01/26/22 Discharge Disposition: A-D/C Home Attending Physician: Mary Jo Alejandra MD Admitting Physician: Jakob Henderson MD Referring Physician: Not on Staff, Referring MD Allergies, Adverse Reactions, Alerts No Known [...] tetanus-diphtheria toxoids (Td) 07/26/98 Given 1Result Comment: [facility] # 2 scheduled for 10/02/20 2Admin Note: given in clinic 3Admin Note: vis given 4Admin Note: BIOMEDICAL RADHA 5Admin Note: Biomedical Radha [facility] 6Admin Note: given in clinic Medications Advair Diskus 250 mcg-50 mcg inhalation powder 1, puffs, Inhalation, 2 times a day, Give 3 month supply, # 3 each, Refills 3, Tot. Refills 3, Maintenance, 09/26/21 10:53:00 EST, Powder, Route to Pharmacy Electronically, [id number], [facility], 159,... Start Date: 09/26/21 Status: Ordered amLODIPine 2.5 mg oral tablet 1 tablet, By Mouth, Daily, # 90 tablet, 1 Refills, [facility], 159, cm, 11/26/21 11:06:00 EDT, Height Start Date: 12/09/21 Status: Ordered AmLODipine Tablet 2.5 mg, Tablet, By Mouth, 01/30/22 9:00:00 EDT Start Date: 01/30/22 Stop Date: 01/30/22 Status: Completed amoxicillin 500 mg oral tablet 2 tablet = 1,000 mg, By Mouth, Every 12 hours, for 12 days, # 48 tablet, 0 Refills, Acute 02/11/22 12:35:00 EDT, 01/30/22 12:35:00 EDT, Tablet, [facility], Partial fill upon patient request if the prescription is for a schedule II opioid . Start Date: 01/30/22 Stop Date: 02/11/22 Status: Ordered aspirin 81 mg oral delayed release tablet 81 mg, 1, tablet, By Mouth, Daily, # 30 tablet, Refills 0, Maintenance, 09/07/18 15:22:30 EST Start Date: 09/07/18 Status: Ordered atorvastatin 80 mg oral tablet 1 tablet, By Mouth, Daily, # 90 tablet, 1 Refills, [facility], 159, cm, 05/28/21 10:42:00 EDT, Height Start Date: 08/19/21 Status: Ordered ergocalciferol 91600 iu oral capsule 1, capsule, By Mouth, Every week, # 5 capsule, Refills 11, Route to Pharmacy Electronically, [facility], 159, cm, 12/29/21 10:39:00 EDT, Height Start Date: 01/07/22 Status: Ordered Freestyle Lite Test Strips See Instructions, # 180 each, Refills 3, Tot. Refills 3, Maintenance, Use to test blood sugar twicedaily for DM2 E11.9 3 month supply, 09/24/19 12:10:00 EST, Compound, 159, cm, 05/05/19 10:45:00 EDT, Height Start Date: 09/24/19 Status: Ordered furosemide 20 mg oral tablet 20 mg, 1, tablet, By Mouth, 2 times a day, # 270 tablet, Refills 1, Route to Pharmacy Electronically, [facility], 159, cm, 05/28/21 10:42:00 EDT, Height Start Date: 06/23/21 Status: Ordered gabapentin 300 mg oral capsule 1, capsule, By Mouth, Daily at bedtime, # 90 capsule, Refills 3, Route to Pharmacy Electronically, [facility], 159, cm, 02/20/21 6:56:00 EDT, Height Start Date: 05/20/21 Status: Ordered gabapentin 300 mg oral capsule 300 mg, Capsule, By Mouth, 01/29/22 21:00:00 EDT Start Date: 01/29/22 Stop Date: 01/29/22 Status: Completed glipiZIDE 10 mg oral tablet 1 tablet, By Mouth, 2 times a day, # 180 tablet, 1 Refills, [facility], 159, cm, 11/21/21 11:16:00 EDT, Height Start Date: 11/25/21 Status: Ordered Insulin Syringe, BD Ultra-Fine 0.5 cc 31 G x 8 mm (516in) See Instructions, # 60 each, Refills 11, Tot. Refills 11, Maintenance, Use twice a day with NPH insulin DM2 E11.9, 02/11/18 10:01:24 EDT, Compound Start Date: 02/11/18 Status: Ordered metoprolol 50 mg oral tablet, extended release 50 mg, XL Tablet, By Mouth, 01/30/22 9:00:00 EDT Start Date: 01/30/22 Stop Date: 01/30/22 Status: Completed metoprolol 50 mg oral tablet, extended release 50 mg, 1, tablet, By Mouth, Daily, # 90 tablet, Refills 3, Tot. Refills 3, Maintenance, 09/25/20 15:22:00 EST, Route to Pharmacy Electronically, [facility], Partial fill upon patient request if the prescription is for a schedule II opioid d... Start Date: 09/25/20 Status: Ordered ProAir HFA 90 mcg/inh inhalation aerosol with adapter 2, puffs, Inhalation, Every 6 hours, PRN, # 8.5 Gm, Refills 6, Tot. Refills 6, Maintenance, 11/10/21 10:21:00 EDT, Aerosol, Route to Pharmacy Electronically, [id number], [facility], 159, cm, 11/10/21 9:57:00 EDT, H... Start Date: 11/10/21 Status: Ordered ReliOn/Novolin N 100 units/mL subcutaneous injection See Instructions, INJECT 18 UNITS SUBCUTANEOUSLY IN THE MORNING AND 9 IN THE EVENING, # 10 mL, 5 Refills, [facility], 159, cm, 09/04/21 13:27:00 EST, Height Start Date: 10/06/21 Status: Ordered sildenafil 25 mg oral tablet 1 tablet, By Mouth, Daily, PRN NEEDED, PRIOR TO SEXUAL INTERCOURSE., # 2 tablet, 11 Refills, [facility], 159, cm, 11/26/21 11:06:00 EDT, Height Start Date: 12/08/21 Status: Ordered Singulair 10 mg oral tablet 10 mg, 1, tablet, By Mouth, Daily, # 30 tablet, Refills 6, Tot. Refills 6, Maintenance, 11/10/21 10:21:00 EDT, Route to Pharmacy Electronically, [facility], Partial fill upon patient request if the prescription is for a schedule II opioid d... 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 2by echo 2009 mild 3elevated, prostate biopsy negative 4less than 50 % b/l by u/s 2009 5colo 2012 nl, repeat 2022 [address] normal, repeat 2010 7Status post CABG ??1. 2016. 8Methacholine challenge test 2014 positive for asthma. 9Dr. Batlan 2014 10Patient declines further PSA testing as of October 2015. Procedures Procedure Date Related Diagnosis Body Site Status CABG (Coronary artery bypass grafting) planned Completed TAVR -transcatheter aortic v alve replacement Completed Results Orders for Microbiology Reports Name Date Blood Culture 01/28/22 Blood Culture #2 01/28/22 Blood Culture 01/26/22 Blood Culture #2 01/26/22 Microbiology Reports TEST:Blood Culture, Second Order STATUS:Unauthenticated BODY SITE: SOURCE:Blood COLLECTED DATE/TIME:01/28/22 8:00 AM Blood Culture, Second Order SPECIMEN DESCRIPTION : BLOOD RT ARM SPECIAL REQUESTS : NONE CULTURE : NO GROWTH AFTER 48 HOURS REPORT STATUS : PRELIMINARY REPORT TEST:Blood Culture STATUS:Unauthenticated BODY SITE: SOURCE:Blood COLLECTED DATE/TIME:01/28/22 7:55 AM Blood Culture SPECIMEN DESCRIPTION : BLOOD L ARM SPECIAL REQUESTS : NONE CULTURE : NO GROWTH AFTER 48 HOURS REPORT STATUS : PRELIMINARY REPORT TEST:Blood Culture, Second Order STATUS:Auth (Verified) BODY SITE: SOURCE:Blood COLLECTED DATE/TIME:01/26/22 5:56 PM Blood Culture, Second Order SPECIMEN DESCRIPTION : BLOOD NO SITE SPECIAL REQUESTS : CRITICAL VALUE CALLED AND VERIFIED BY READBACK FOR: GRAM POSITIVE COCCI TO [id number], ER, 01/27/22 0652, BY TECH [id number] CULTURE : STREPTOCOCCUS AGALACTIAE SERO GROUP B This isolate was identified using Maldi-TOF system FOR SUSCEPTIBILITY RESULT REFER TO BLOOD CULTURE REPORT STATUS : FINAL 01/29/2022 TEST:Blood Culture STATUS:Auth (Verified) BODY SITE: SOURCE:Blood COLLECTED DATE/TIME:01/26/22 5:28 PM Blood Culture SPECIMEN DESCRIPTION : BLOOD NO SITE SPECIAL REQUESTS : CRITICAL VALUE CALLED AND VERIFIED BY READBACK FOR: GRAM POSITIVE COCCI TO [id number], ER, 01/27/22 0652, BY TECH [id number] CULTURE : STREPTOCOCCI, GR.B BETA HEMOLYTIC ISOLATED Group B beta Hemolytic Strep was identified by multi-plex PCR REPORT STATUS : FINAL 01/29/2022 ORGANISM STREPTOCOCCI, GR.B BETA HEMOLYTIC ISOLATED METHOD MIN. INHIB. CONC. (MCG/ML) CLINDAMYCIN RESISTANT ERYTHROMYCIN RESISTANT PENICILLIN SUSCEPTIBLE Radiology Reports * Exam Date Time Procedure Performing Provider Status 01/26/22 6:43 PM Chest 2 Views Frontal and Lat Shira Barclay; Auth (Verified) Notes: (Chest 2 Views Frontal and Lat) Reason For Exam: Shortness of Breath, Fever;Other: RESULT: Chest 2 Views Frontal and Lat Chest 2 Views Frontal and Lat Hx of Present Illness: Has felt fatigued and weak today. Has fever per EMS; Reason: Other:; Shortness of Breath, Fever; Clinical Question(s): Pneumonia COMPARISON: 11/17/2021 FINDINGS: LINES AND TUBES: None. LUNGS AND PLEURA: Low lung volumes with mild basilar atelectasis somewhat hazy opacity noted in both lung gallo. This may be related to low lung volumes/vascular crowding. Pneumonia not excluded. No pleural effusion. No pneumothorax. HEART, MEDIASTINUM AND PREET: Heart is normal in size. Normal upper mediastinal and hilar contour. BONES AND SOFT TISSUES: No acute abnormality. IMPRESSION: Low lung volumes limits examination. Mildly increased markings bilaterally in the perihilar area could be related to hypoinflation versus viral type pneumonia. WSN: [id number] Ordering Physician: Rubi Puentes Dictated By: Akhil Clarke MD Dictated Date/Time: 01/26/22 7:28 pm Reviewed By: Akhil Clarke MD Signed By: Akhil Clarke MD Signed Date/Time: 01/26/22 7:28 pm Transcribed By: RUBINA Transcribed Date/Time: 01/26/22 7:27 pm Vital Signs Most recent to oldest [Reference Range]: 1 2 3 Height 160 cm (01/30/22 5:01 AM) 160 cm (01/29/22 7:59 PM) 160 cm (01/29/22 6:56 AM) Oxygen Saturation [94-100 %] 92 % *L* (01/30/22 5:01 AM) 96 % (01/29/22 7:59 PM) 93 % *L* (01/29/22 2:00 PM) Pulse Rate [55-90 bpm] 79 bpm (01/30/22 9:05 AM) 85 bpm (01/30/22 5:01 AM) 44 bpm *L* (01/29/22 7:59 PM) Blood Pressure [90-138/55-84 mm Hg] 121/92mm Hg (01/30/22 9:05 AM) 121/92mm Hg (01/30/22 9:05 AM) 136/70mm Hg (01/30/22 5:01 AM) Respiratory Rate [16-30 br/min] 20 br/min (01/30/22 5:01 AM) 22 br/min (01/29/22 8:13 PM) 22 br/min (01/29/22 7:59 PM) Temperature [96.8-100.4 DegF] 98.1 DegF (01/30/22 5:01 AM) 98.3 DegF (01/29/22 7:59 PM) 98.4 DegF (01/29/22 2:00 PM) Liters per Minute 3 L/min (01/30/22 5:01 AM) 3 L/min (01/29/22 7:59 PM) 2 L/min (01/29/22 7:00 AM) Mode of Delivery (Oxygen) Nasal cannula (01/30/22 5:01 AM) Nasal cannula (01/29/22 7:59 PM) Room air (01/29/22 2:00 PM) Blood pressure sites Arm, left (01/30/22 5:00 AM) Arm, left (01/29/22 7:59 PM) Arm, left (01/29/22 2:00 PM) Temperature Route Oral (01/30/22 5:01 AM) Oral (01/29/22 7:59 PM) Oral (01/29/22 2:00 PM) Social History Social History Type Response Tobacco Other: quit age 52, smoked since age 22, 1/2 ppd. Sex
--- OUTSIDE RECORDS SUMMARY | 2024-05-22 07:09 | XMS_ITS | Continuity of Care Document ---
Author Organization [facility] Address [address] [place] [address]- Care Team Providers Care Casualty Underwriter Name Role Phone Antony Pappas MD Primary Care Physician [place] [facility] [place]23 [facility] [address] [place] [address]- Attending Physician: Yolis Soto Allergies, Adverse Reactions, Alerts No Known Allergies Immunizations Given and Recorded Vaccine Date Status Refusal Reason pneumococcal 20-valent conjugate vaccine 12/31/22 Given [id number] 12y+ bivalent booster vax 06/10/22 Given influenza [...] tetanus-diphtheria toxoids (Td) 07/26/98 Given 1Result Comment: [facility] # 2 scheduled for 10/02/20 2Admin Note: given in clinic 3Admin Note: vis given 4Admin Note: BIOMEDICAL RADHA 5Admin Note: Biomedical Radha [facility] 6Admin Note: given in clinic Medications amLODIPine 2.5 mg oral tablet 1 tablet, By Mouth, Daily, # 90 tablet, 1 Refills, Maintenance, 07/17/23 12:36:00 EST, [facility], 160, cm, 05/17/23 10:46:00 EDT, [...] Daily, # 90 tablet, 1 Refills, Maintenance, 08/17/23 16:12:00 EST, [facility], 160, cm, 05/17/23 10:46:00 EDT, Height, 65, kg, 04/28/22 7:07:00 EDT, Dry Weight Start Date: 08/17/23 Status: Ordered ergocalciferol 29076 iu oral capsule 1, capsule, By Mouth, Every week, # 5 capsule, Refills 11, Tot. Refills 11, Maintenance, 03/09/23 11:38:00 EDT, Route to Pharmacy Electronically, [facility], 160, cm, 12/31/22 9:21:00 EDT,Height, 65, kg, 04/28/22 7:07:00 EDT, Dry Weight Start Date: 03/09/23 Status: Ordered Farxiga 5 mg oral tablet 1 tablet, By Mouth, Daily, # 90 tablet, 3 Refills, Maintenance, 06/02/23 9:27:00 EST, [facility], 160, cm, 05/17/23 10:46:00 EDT, Height, 65, kg, 04/28/22 7:07:00 EDT, Dry Weight Start Date: 06/02/23 Stop Date: 05/27/24 Status: Ordered finasteride 5 mg oral tablet 1 tablet = 5 mg, By Mouth, Daily, Ordered by urology Dr. Asif (increased from 1mg daily to 5mg daily), # 30 tablet, 0 Refills, Maintenance, 07/30/23 8:24:00 EST, Tablet, Partial fill upon patient request if the prescription is for a schedule II... Start Date: 07/30/23 Status: Ordered Freestyle Lite Test Strips See Instructions, # 180 each, Refills 3, Tot. Refills 3, Maintenance, Use to test blood sugar twicedaily for DM2 E11.9 3 month supply, 09/24/19 12:10:00 EST, Compound, 159, cm, 05/05/19 10:45:00 EDT, Height Start Date: 09/24/19 Status: Ordered gabapentin 300 mg oral capsule 1, capsule, By Mouth, Daily at bedtime, # 90 capsule, Refills 0, Maintenance, 08/26/23 9:36:00 EST,Route to Pharmacy Electronically, [facility], 160, cm, 05/17/23 10:46:00 EDT, Height, 65, kg, 04/28/22 7:07:00 EDT, Dry Weight Start Date: 08/26/23 Status: Ordered glipiZIDE 10 mg oral tablet 1 tablet, By Mouth, 2 times a day, # 180 tablet, 3 Refills, Maintenance, 09/22/22 12:28:00 EST, [place] [address]288, 160, cm, 09/09/22 14:01:00 EST, Height, 65, kg, 04/28/22 7:07:00 EDT, Dry Weight Start Date: 09/22/22 Status: Ordered metoprolol 50 mg oral tablet, extended release 50 mg, 1, tablet, By Mouth, Daily, # 90 tablet, Refills 3, Tot. Refills 3, Maintenance, 09/25/20 15:22:00 EST, Route to Pharmacy Electronically, [place] [address], Partial fill upon patient request if the prescription is for a schedule II opioid d... Start Date: 09/25/20 Status: Ordered Metoprolol Succinate ER 50 mg oral tablet, extended release 1 tablet, By Mouth, Daily, # 90 tablet, 3 Refills, Maintenance, 10/10/22 20:33:00 EDT, [place] [address]288, 160, cm, 09/24/22 9:03:00 EST, Height, 65, kg, 04/28/22 7:07:00 EDT, Dry Weight Start Date: 10/10/22 Status: Ordered montelukast 10 mg oral tablet 1, tablet, By Mouth, Daily, # 30 tablet, Refills 5, Tot. Refills 5, Maintenance, 06/28/23 10:39:00 EST, Route to Pharmacy Electronically, [facility], 160, cm, 05/17/23 10:46:00 EDT, Height, 65, kg, 04/28/22 7:07:00 EDT, Dry Weight Start Date: 06/28/23 Status: Ordered Pen [place], 30 G x 8 mm BD Ultra [...] 10:21:00 EDT, Aerosol, Route to Pharmacy Electronically, [id number], [facility], 159, cm, 11/10/21 9:57:00 EDT, H... Start Date: 11/10/21 Status: Ordered tamsulosin 0.4 mg oral capsule See Instructions, 1 capsule By Mouth Daily x 7 days and if no side effects increase to bid. Orderedby urology Dr Asif, Refills 0, Maintenance, 07/30/23 8:22:00 EST, Instructions Replace Required Details, Partial fill upon patient request if th... Start Date: 07/30/23 Status: Ordered torsemide 20 mg oral tablet 2 tablet, By Mouth, Daily, # 180 tablet, 1 Refills, Maintenance, 08/26/23 21:25:00 EST, [facility], 160, cm, 05/17/23 10:46:00 EDT, Height, 65, kg, 04/28/22 7:07:00 EDT, Dry Weight Start Date: 08/26/23 Status: Ordered Trelegy Ellipta See Instructions, 1 Inhalation Daily 100/62.5/25 replaces Advair Samples given, 0 Refills, Maintenance, 01/19/23 14:15:00 EDT, Partial fill upon patient request if the prescription is for a schedule II opioid drug. Start Date: 01/19/23 Status: Ordered Tresiba FlexTouch 200 units/mL subcutaneous solution See Instructions, 76 units daily and increase 2 units every 3 days until FBS < 130 Max dose 90 units daily, # 5 each, 5 Refills, Maintenance, 03/22/23 15:46:00 [facility], Partial fill upon patient request [...] Confirmed Active 1Status post aortic valve replacement 2017. 2by echo 2009 mild 3elevated, prostate biopsy negative 4less than 50 % b/l by u/s 2009 5colo 2012 nl, repeat 2022 56241 normal, repeat 2010 7Status post CABG ??1. [...] Pt will not have BS's < 70 ([facility]) Start Jeronimo e:03/12/23 End Date:06/11/23 Status:Met Progression:Not Met Patient Care team information Care Team Personnel Name: Eliza Alejandre RN Position: [facility] RN Member Role: Primary Care Nurse Name: Breanna Moreno Position: [facility] Outreach Member Role: Lifetime Consulting Physician Name: Antony Pappas MD Position: [facility] Physician - Primary Care Member Role: PCP Address: Address: [address] [place] [address]- [place] Name: Silvia Lawrence RN Position: S RN Member Role: Primary Care Nurse Name: Sahra ([employer]) Sarah Position: [facility] bleacher kraft pulp Member Role: Ironing Machine Operator Name: Laura Chapin RN Position: S RN Member Role: Primary Care Nurse Name: Lenora Martines NP Position: Reference Physician Member Role: Primary Care Nurse Address: Address: [address] [place] [address]- [place] Name: Carrol Strauss RN Position: [facility] AMB Nurse Member Role: Primary Care Nurse Name: Claire Carr RN Position: [facility] RN Member Role: Primary Care Nurse Name: Rachel Robledo RN Position: S RN Member Role: Primary Care Nurse Name: Richa Owens RN Position: [facility] RN Member Role: Primary Care Nurse Care Team Related Persons Name: J LUIS HOFF Address: home [address] [place] [address] Name: HARVINDER FRANCISCO Address: home [address] [place] [address]
--- OUTSIDE RECORDS SUMMARY | 2024-05-22 07:09 | XMS_ITS | Continuity of Care Document ---
Author Organization [facility] Address [address] [place] [address]- Care Team Providers Care Shift Superintendent Name Role Phone Antony Pappas MD Primary Care Physician Encounter [facility] Date(s): 01/07/23 - 02/06/[address] [facility] [place] Adult [address] [place] [address]- Attending Physician: Admtr, Ar8 Allergies, Adverse Reactions, Alerts No Known Allergies Immunizations Given and Recorded Vaccine Date Status Refusal Reason pneumococcal 20-valent conjugate vaccine 12/31/22 Given [id number] 12y+ bivalent booster vax 06/10/22 Given influenza [...] tetanus-diphtheria toxoids (Td) 07/26/98 Given 1Result Comment: [facility] # 2 scheduled for 10/02/20 2Admin Note: given in clinic 3Admin Note: vis given 4Admin Note: BIOMEDICAL RADHA 5Admin Note: Biomedical Radha [facility] 6Admin Note: given in clinic Medications amLODIPine 2.5 mg oral tablet 1 tablet, By Mouth, Daily, # 90 tablet, 1 Refills, Maintenance, 01/15/23 15:39:00 EDT, [facility], 160, cm, 12/31/22 9:21:00 [...] Daily, # 90 tablet, 1 Refills, Maintenance, 09/08/22 14:54:00 EST, [facility], 160, cm, 07/30/22 9:45:00 EST, Height, 65, kg, 04/28/22 7:07:00 EDT, Dry Weight Start Date: 09/08/22 Status: Ordered ergocalciferol 64004 iu oral capsule 1, capsule, By Mouth, Every week, # 5 capsule, Refills 0, Maintenance, 02/05/23 8:24:00 EDT, Route to Pharmacy Electronically, [facility], 160, cm, 12/31/22 9:21:00 EDT, Height, 65, kg, 04/28/22 7:07:00 EDT, Dry Weight Start Date: 02/05/23 Status: Ordered Farxiga 5 mg oral tablet 1 tablet = 5 mg, By Mouth, Daily, If Pt cannot afford we will try to get medication assist through the company., # 30 tablet, 3 Refills, Maintenance, 09/11/22 13:16:00 EST, Tablet, [facility], Partial fill upon patient request if the prescr... Start Date: 09/11/22 Status: Ordered Freestyle Lite Test Strips See [...] 05/27/22 18:05:00 EDT, Route to Pharmacy Electronically, [facility], 160, cm, 05/01/22 8:19:00 EDT, Height, 65, kg, 04/28/22 7:07:00 EDT, Dry Weight Start Date: 05/27/22 Status: Ordered glipiZIDE 10 mg oral tablet 1 tablet, By Mouth, 2 times a day, # 180 tablet, 3 Refills, Maintenance, 09/22/22 12:28:00 EST, [facility], 160, cm, 09/09/22 14:01:00 EST, Height, 65, kg, 04/28/22 7:07:00 EDT, Dry Weight Start Date: 09/22/22 Status: Ordered Insulin Syringe, BD Ultra-Fine 0.5 cc 31 G x 8 mm (5/16in) See Instructions, # 60 each, Refills 11, Tot. Refills 11, Maintenance, Use twice a day with NPH insulin DM2 E11.9, 11/19/22 14:39:00 EDT, Compound, 160, cm, 10/16/22 8:32:00 EDT, Height, 65, kg, 04/28/22 7:07:00 EDT, Dry Weight Start Date: 11/19/22 Status: Ordered metoprolol 50 mg oral tablet, extended release 50 mg, 1, tablet, By Mouth, Daily, # 90 tablet, Refills 3, Tot. Refills 3, Maintenance, 09/25/20 15:22:00 EST, Route to Pharmacy Electronically, [facility], Partial fill upon patient request if the prescription is for a schedule II opioid d... Start Date: 09/25/20 Status: Ordered Metoprolol Succinate ER 50 mg oral tablet, extended release 1 tablet, By Mouth, Daily, # 90 tablet, 3 Refills, Maintenance, 10/10/22 20:33:00 EDT, [facility], 160, cm, 09/24/22 9:03:00 EST, Height, 65, kg, 04/28/22 7:07:00 EDT, Dry Weight Start Date: 10/10/22 Status: Ordered montelukast 10 mg oral tablet 1, tablet, By Mouth, Daily, # 30 tablet, Refills 5, Maintenance, 01/15/23 16:27:00 EDT, Route to Pharmacy Electronically, [facility], 160, cm, 12/31/22 9:21:00 EDT, Height, 65, kg, 04/28/22 7:07:00 EDT, Dry Weight Start Date: 01/15/23 Status: Ordered NovoLOG Mix 70/30 subcutaneous suspension See Instructions, Patient wants bottle of insulin not pens. Inject SQ 35 units qam and 30 units qpm, # 10 mL, 5 Refills, Maintenance, 11/27/22 13:21:00 EDT, [facility], Partial fill upon patient request if the prescription is for a schedul... Start Date: 11/27/22 Status: Ordered ProAir HFA 90 mcg/inh inhalation aerosol with adapter 2, puffs, Inhalation, Every 6 hours, PRN, # 8.5 Gm, Refills 6, Tot. Refills 6, Maintenance, 11/10/21 10:21:00 EDT, Aerosol, Route to Pharmacy Electronically, [id number], [facility], 159, cm, 11/10/21 9:57:00 EDT, H... Start Date: 11/10/21 Status: Ordered terazosin 5 mg oral capsule 1, capsule, By Mouth, Daily at bedtime, # 90 capsule, Refills 1, Maintenance, 02/02/23 10:35:00 EDT, Route to Pharmacy Electronically, [facility], 160, cm, 12/31/22 9:21:00 EDT, Height, 65, kg, 04/28/22 7:07:00 EDT, Dry Weight Start Date: 02/02/23 Status: Ordered torsemide 20 mg oral tablet 2 tablet = 40 mg, By Mouth, Daily, # 180 tablet, 3 Refills, Maintenance, 09/09/22 14:25:00 EST, [facility], Partial fill upon patient [...] opioid drug. Start Date: 01/19/23 Status: Ordered Problem List Condition Confirmation Course [...] u/s 2009 5colo 2012 nl, repeat 2022 13135 normal, repeat 2010 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 8Methacholine challenge test 2014 positive for asthma. 9Dr. Batlan 2014 10Patient declines further PSA testing as of October 2015. Social History Social History Type Response Tobacco Other: quit age 52, smoked since age 22, 1/2 ppd. Sex EKG study * Event Display: EKG Authored Date: Laboratory * Adelina Recinos: PERFORM Event Display: Laboratory Results Scanned Authored Date: Radiology * Event Display: Radiology Result Scanned Authored Date: * Event Display: Non BH Radiology Results Authored Date: * Event Display: Radiology Result Scanned Authored Date: Patient Care team information Care Team Personnel Name: Eliza Alejandre RN Position: [facility] RN Member Role: Primary Care Nurse Name: Breanna Moreno Position: [facility] Outreach Member Role: Lifetime Consulting Physician Name: Antony Pappas MD Position: [facility] Physician - Primary Care Member Role: PCP Address: Address: [address] [place] [id number]- [place] Name: Silvia Lawrence RN Position: [facility] RN Member Role: Primary Care Nurse Name: Heather Pardo Position: [facility] TA Member Role: Lifetime Consulting Physician Name: Laura Chapin RN Position: [facility] RN Member Role: Primary Care Nurse Name: Lenora Martines NP Position: Reference Physician Member Role: Primary Care Nurse Address: Address: [address] [place] [id number]- Name: Carrol Strauss RN Position: [facility] AMB Nurse Member Role: Primary Care Nurse Name: Claire Carr RN Position: [facility] RN Member Role: Primary Care Nurse Name: Rachel Robledo RN Position: [facility] RN Member Role: Primary Care Nurse Name: Richa Owens RN Position: [facility] RN Member Role: Primary Care Nurse Care Team Related Persons Name: J LUIS HOFF Address: [address] [place] [address] Name: HARVINDER FRANCISCO Address: [address] [place] [address]
--- OUTSIDE RECORDS SUMMARY | 2024-05-22 07:09 | XMS_ITS | Continuity of Care Document ---
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 Refills 3, Maintenance, 09/26/21 10:53:00 EST, Powder, Route to Pharmacy Electronically, [id number], [facility], [facility],... Start Date: 09/26/21 Status: Ordered amLODIPine 2.5 mg oral tablet 1 tablet, By Mouth, Daily, # 90 tablet, 1 Refills, [facility], 159, cm, 11/26/21 11:06:00 EDT, Height Start Date: 12/09/21 Status: Ordered aspirin 81 mg oral delayed release tablet 81 mg, 1, tablet, By Mouth, Daily, # 30 tablet, Refills 0, Maintenance, 09/07/18 15:22:30 EST Start Date: 09/07/18 Status: Ordered atorvastatin 80 mg oral tablet 1 tablet, By Mouth, Daily, # 90 tablet, 1 Refills, [facility], 159, cm, 05/28/21 10:42:00 EDT, Height Start Date: 08/19/21 Status: Ordered ergocalciferol 58219 iu oral capsule 1, capsule, By Mouth, Every week, # 5 capsule, Refills 12, Tot. Refills 0, Maintenance, 01/01/21 14:53:00 EDT, Route to Pharmacy Electronically, [facility], 159, cm, 11/27/20 15:59:00 EDT,Height Start Date: 01/01/21 Status: Ordered Freestyle Lite Test Strips See [...] tablet, Refills 1, Route to Pharmacy Electronically, [facility], 159, cm, 05/28/21 10:42:00 EDT, Height Start Date: 06/23/21 Status: Ordered gabapentin 300 mg oral capsule 1, capsule, By Mouth, Daily at bedtime, # 90 capsule, Refills 3, Route to Pharmacy Electronically, [facility], 159, cm, 02/20/21 6:56:00 EDT, Height Start Date: 05/20/21 Status: Ordered glipiZIDE 10 mg oral tablet 1 tablet, By Mouth, 2 times a day, # 180 tablet, 1 Refills, [facility], 159, cm, 11/21/21 11:16:00 [...] 09/25/20 15:22:00 EST, Route to Pharmacy Electronically, [facility], Partial fill upon patient request if the prescription is for a schedule II opioid d... Start Date: 09/25/20 Status: Ordered Metoprolol Succinate ER 50 mg oral tablet, extended release 1 tablet, By Mouth, Daily, # 90 tablet, 3 Refills, [facility], 159, cm, 09/04/21 13:27:00 EST, Height Start Date: 10/02/21 Status: Ordered ProAir HFA 90 mcg/inh inhalation aerosol with adapter 2, puffs, Inhalation, Every 6 hours, PRN, # 8.5 Gm, Refills 6, Tot. Refills 6, Maintenance, 11/10/21 10:21:00 EDT, Aerosol, Route to Pharmacy Electronically, [id number], [facility], 159, cm, 11/10/21 9:57:00 EDT, H... Start Date: 11/10/21 Status: Ordered ReliOn/Novolin N 100 units/mL subcutaneous injection See Instructions, INJECT 18 UNITS SUBCUTANEOUSLY IN THE MORNING AND 9 IN THE EVENING, # 10 mL, 5 Refills, [facility], 159, cm, 09/04/21 13:27:00 EST, Height Start Date: 10/06/21 Status: Ordered sildenafil 25 mg oral tablet 1 tablet, By Mouth, Daily, PRN NEEDED, PRIOR TO SEXUAL INTERCOURSE., # 2 tablet, 11 Refills, [facility], 159, cm, 11/26/21 11:06:00 EDT, Height Start Date: 12/08/21 Status: Ordered Singulair 10 mg oral tablet 10 mg, 1, tablet, By Mouth, Daily, # 30 tablet, Refills 6, Tot. Refills 6, Maintenance, 11/10/21 10:21:00 EDT, Route to Pharmacy Electronically, [facility], Partial fill upon patient request if the prescription is for a schedule II opioid d... 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 8Methacholine challenge test 2014 positive for asthma. 9Dr. Misa 2014 10Patient declines further PSA testing as of October 2015. Diagnosis Diagnosis Type Effective Dates Health Status Clinical Service Informant Type II diabetes mellitus with renal manifestations Discharge Diagnosis 12/29/21 Vital Signs Most recent to oldest [Reference Range]: 1 Height 159 cm (12/29/21 10:39 AM) Weight 69.4 kg (12/29/21 10:39 AM) Oxygen Saturation [94-100 %] 96 % (12/29/21 10:39 AM) Pulse Rate [55-90 bpm] 75 bpm (12/29/21 10:39 AM) Body Mass Index [18.5-24.99] 27.45 *H* (12/29/21 10:39 AM) Blood Pressure [90-138/55-84 mm Hg] 100/ 62mm Hg (12/29/21 10:39 AM) Mode of Delivery (Oxygen) Room air (12/29/21 10:39 AM) Blood pressure sites Arm, left (12/29/21 10:39 AM) Weight Obtained Via Standing scale (12/29/21 10:39 AM) Social History Social History Type Response Smoking Status Former smoker; Other : Smoking age 55. social smoker; entered on: 09/29/16 Sex
--- OUTSIDE RECORDS SUMMARY | 2024-05-22 07:09 | XMS_ITS | Continuity of Care Document ---
Author Organization [facility] Address [address] [place] [address]- Care Team Providers Care Food Service Manager Name Role Phone Antony Pappas MD Primary Care Physician Encounter [facility] [place] Date(s): 11/26/21 - 12/03/21 [facility] Adult [address] [place] [address]- Encounter Diagnosis Chronic renal disease, stage III(Discharge Diagnosis) - 11/26/21 Background diabetic retinopathy(Discharge Diagnosis) - 11/26/21 Diabetic neuropathy(Discharge Diagnosis) - 11/26/21 Attending Physician: Antony Pappas MD Allergies, Adverse Reactions, Alerts No Known Allergies Immunizations Given and Recorded Vaccine Date Status Refusal Reason influenza virus vaccine, inactivated 05/23/21 Give n [...] Give n SARS-CoV-2 (COVID-19) mRNA BNT-162b2 vac 05/21/21 Recorded [...] tetanus-diphtheria toxoids (Td) 07/26/98 Given 1Result Comment: [facility] # 2 scheduled for 10/02/20 2Admin Note: given in clinic 3Admin Note: vis given 4Admin Note: BIOMEDICAL RADHA 5Admin Note: Biomedical [facility] 6Admin Note: given in clinic Medications Advair Diskus 250 mcg-50 mcg inhalation powder 1, puffs, Inhalation, 2 times a day, Give 3 month supply, # 3 each, Refills 3, Tot. Refills 3, Maintenance, 09/26/21 10:53:00 EST, Powder, Route to Pharmacy Electronically, [id number], [facility], [facility],... Start Date: 09/26/21 Status: Ordered amLODIPine 2.5 mg oral tablet 1 tablet, By Mouth, Daily, # 30 tablet, 5 Refills, [facility], 159, cm, 05/28/21 10:42:00 EDT, Height Start Date: 06/13/21 Status: Ordered aspirin 81 mg oral delayed release tablet 81 mg, 1, tablet, By Mouth, Daily, # 30 tablet, Refills 0, Maintenance, 09/07/18 15:22:30 EST Start Date: 09/07/18 Status: Ordered atorvastatin 80 mg oral tablet 1 tablet, By Mouth, Daily, # 90 tablet, 1 Refills, [facility], 159, cm, 05/28/21 10:42:00 EDT, Height Start Date: 08/19/21 Status: Ordered ergocalciferol 01735 iu oral capsule 1, capsule, By Mouth, Every week, # 5 capsule, Refills 12, Tot. Refills 0, Maintenance, 01/01/21 14:53:00 EDT, Route to Pharmacy Electronically, [facility], 159, cm, 11/27/20 15:59:00 EDT,Height Start [...] tablet, Refills 1, Route to Pharmacy Electronically, [facility], 159, cm, 05/28/21 10:42:00 EDT, Height Start Date: 06/23/21 Status: Ordered gabapentin 300 mg oral capsule 1, capsule, By Mouth, Daily at bedtime, # 90 capsule, Refills 3, Route to Pharmacy Electronically, [facility], 159, cm, 02/20/21 6:56:00 EDT, Height Start Date: 05/20/21 Status: Ordered glipiZIDE 10 mg oral tablet 1 tablet, By Mouth, 2 times a day, # 180 tablet, 1 Refills, [facility], 159, cm, 11/21/21 11:16:00 [...] EST, Route to Pharmacy Electronically, [facility], Partial fill upon patient request if the prescription is for a schedule II opioid d... Start Date: 09/25/20 Status: Ordered Metoprolol Succinate ER 50 mg oral tablet, extended release 1 tablet, By Mouth, Daily, # 90 tablet, 3 Refills, [facility], 159, cm, 09/04/21 13:27:00 EST, Height Start Date: 10/02/21 Status: Ordered ProAir HFA 90 mcg/inh inhalation aerosol with adapter 2, puffs, Inhalation, Every 6 hours, PRN, # 8.5 Gm, Refills 6, Tot. Refills 6, Maintenance, 11/10/21 10:21:00 EDT, Aerosol, Route to Pharmacy Electronically, [id number], [facility], 159, cm, 11/10/21 9:57:00 EDT, H... Start Date: 11/10/21 Status: Ordered ReliOn/Novolin N 100 units/mL subcutaneous injection See Instructions, INJECT 18 UNITS SUBCUTANEOUSLY IN THE MORNING AND 9 IN THE EVENING, # 10 mL, 5 Refills, [facility], 159, cm, 09/04/21 13:27:00 EST, Height Start Date: 10/06/21 Status: Ordered sildenafil 25 mg oral tablet 1 tablet, By Mouth, Daily, PRN NEEDED, PRIOR TO SEXUAL INTERCOURSE., # 2 tablet, 11 Refills, Maintenance, 01/30/21 7:57:00 EDT, [facility], 159, cm, 11/27/20 15:59:00 EDT, Height Start Date: 01/30/21 Status: Ordered sildenafil 25 mg oral tablet 1 tablet, By Mouth, Daily, PRN NEEDED, PRIOR TO SEXUAL INTERCOURSE., # 2 tablet, 0 Refills, [facility], 159, cm, 11/26/21 11:06:00 EDT, Height Start Date: 12/01/21 Status: Ordered Singulair 10 mg oral tablet 10 mg, 1, tablet, By Mouth, Daily, # 30 tablet, Refills 6, Tot. Refills 6, Maintenance, 11/10/21 10:21:00 EDT, Route to Pharmacy Electronically, [facility], Partial fill upon patient request if the prescription is for a schedule II opioid d... 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 8Methacholine challenge test 2014 positive for asthma. 9DrAngy Bynum 2014 10Patient declines further PSA testing as of October 2015. Diagnosis Diagnosis Type Effective Dates Health Status Clinical Service Informant Chronic renal disease, stage III Discharge Diagnosis 11/26/21 Background diabetic retinopathy Discharge Diagnosis 11/26/21 Diabetic neuropathy Discharge Diagnosis 11/26/21 Vital Signs Most recent to oldest [Reference Range]: 1 Height 159 cm (11/26/21 11:06 AM) Weight 69.7 kg (11/26/21 11:06 AM) Oxygen Saturation [94-100 %] 96 % (11/26/21 11:06 AM) Pulse Rate [55-90 bpm] 67 bpm (11/26/21 11:06 AM) Body Mass Index [18.5-24.99] 27.57 *H* (11/26/21 11:06 AM) Blood Pressure [90-138/55-84 mm Hg] 116/ 58mm Hg (11/26/21 11:06 AM) Mode of Delivery (Oxygen) Room air (11/26/21 11:06 AM) Blood pressure sites Arm, left (11/26/21 11:06 AM) Weight Obtained Via Standing scale (11/26/21 11:06 AM) Social History Social History Type Response Smoking Status Former smoker; Other : Smoking age 55. social smoker; entered on: 09/29/16 Sex
--- OUTSIDE RECORDS SUMMARY | 2024-05-22 07:09 | XMS_ITS | Continuity of Care Document ---
Author Organization [facility] Ponce lt Address [address] [place] [address]- Care Team Providers Care Marketing Technology Specialist Name Role Phone Antony Pappas MD Primary Care Physician [phone] Encounter [facility] [place] Date(s): 11/18/21 - 12/18/21 [facility] Adult [address] [place] [address]- Allergies, Adverse Reactions, Alerts No Known Allergies [...] tetanus-diphtheria toxoids (Td) 07/26/98 Given 1Result Comment: [facility] # 2 scheduled for 10/02/20 2Admin Note: given in clinic 3Admin Note: vis given 4Admin Note: BIOMEDICAL RADHA 5Admin Note: Biomedical Radha [place] [facility] [place]: given in clinic Medications Advair Diskus 250 mcg-50 mcg inhalation powder 1, puffs, Inhalation, 2 times a day, Give 3 month supply, # 3 each, Refills 3, Tot. Refills 3, Maintenance, 09/26/21 10:53:00 EST, Powder, Route to Pharmacy Electronically, [id number], [facility], 159,... Start Date: 09/26/21 Status: Ordered amLODIPine 2.5 mg oral tablet 1 tablet, By Mouth, Daily, # 90 tablet, 1 Refills, [facility], 159, cm, 11/26/21 11:06:00 EDT, Height Start Date: 12/09/21 Status: Ordered aspirin 81 mg oral delayed release tablet 81 mg, 1, tablet, By Mouth, Daily, # 30 tablet, Refills 0, Maintenance, 09/07/18 15:22:30 EST Start Date: 09/07/18 Status: Ordered atorvastatin 80 mg oral tablet 1 tablet, By Mouth, Daily, # 90 tablet, 1 Refills, [facility], 159, cm, 05/28/21 10:42:00 EDT, Height Start Date: 08/19/21 Status: Ordered ergocalciferol 69317 iu oral capsule 1, capsule, By Mouth, Every week, # 5 capsule, Refills 12, Tot. Refills 0, Maintenance, 01/01/21 14:53:00 EDT, Route to Pharmacy Electronically, [facility], 159, cm, 11/27/20 15:59:00 EDT,Height Start [...] tablet, Refills 1, Route to Pharmacy Electronically, [facility], 159, cm, 05/28/21 10:42:00 EDT, Height Start Date: 06/23/21 Status: Ordered gabapentin 300 mg oral capsule 1, capsule, By Mouth, Daily at bedtime, # 90 capsule, Refills 3, Route to Pharmacy Electronically, [facility], 159, cm, 02/20/21 6:56:00 EDT, Height Start Date: 05/20/21 Status: Ordered glipiZIDE 10 mg oral tablet 1 tablet, By Mouth, 2 times a day, # 180 tablet, 1 Refills, [facility], 159, cm, 11/21/21 11:16:00 EDT, [...] 09/25/20 15:22:00 EST, Route to Pharmacy Electronically, [facility], Partial fill upon patient request if the prescription is for a schedule II opioid d... Start Date: 09/25/20 Status: Ordered Metoprolol Succinate ER 50 mg oral tablet, extended release 1 tablet, By Mouth, Daily, # 90 tablet, 3 Refills, [facility], 159, cm, 09/04/21 13:27:00 EST, Height Start Date: 10/02/21 Status: Ordered ProAir HFA 90 mcg/inh inhalation aerosol with adapter 2, puffs, Inhalation, Every 6 hours, PRN, # 8.5 Gm, Refills 6, Tot. Refills 6, Maintenance, 11/10/21 10:21:00 EDT, Aerosol, Route to Pharmacy Electronically, [id number], [facility], 159, cm, 11/10/21 9:57:00 EDT, H... Start Date: 11/10/21 Status: Ordered ReliOn/Novolin N 100 units/mL subcutaneous injection See Instructions, INJECT 18 UNITS SUBCUTANEOUSLY IN THE MORNING AND 9 IN THE EVENING, # 10 mL, 5 Refills, [facility], 159, cm, 09/04/21 13:27:00 EST, Height Start Date: 10/06/21 Status: Ordered sildenafil 25 mg oral tablet 1 tablet, By Mouth, Daily, PRN NEEDED, PRIOR TO SEXUAL INTERCOURSE., # 2 tablet, 11 Refills, [facility], 159, cm, 11/26/21 11:06:00 EDT, Height Start Date: 12/08/21 Status: Ordered sildenafil 25 mg oral tablet 1 tablet, By Mouth, Daily, PRN NEEDED, PRIOR TO SEXUAL INTERCOURSE., # 2 tablet, 0 Refills, [facility], 159, cm, 11/26/21 11:06:00 EDT, Height Start Date: 12/01/21 Status: Ordered Singulair 10 mg oral tablet 10 mg, 1, tablet, By Mouth, Daily, # 30 tablet, Refills 6, Tot. Refills 6, Maintenance, 11/10/21 10:21:00 EDT, Route to Pharmacy Electronically, [facility], Partial fill upon patient request if the prescription is for a schedule II opioid d... Start Date: 11/10/21 Status: Ordered terazosin 5 mg oral capsule 1, capsule, By Mouth, Daily at bedtime, # 90 capsule, Refills 0, Route to Pharmacy Electronically, [facility], 159, cm, 09/04/21 13:27:00 EST, [...] post aortic valve replacement 2017. 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 8Methacholine challenge test 2014 positive for asthma. 9Dr. Batroseanna 2014 10Patient declines further PSA testing as of October 2015. Social History Social History Type Response Smoking Status Former smoker; Other : Smoking age 55. social smoker; entered on: 09/29/16 Sex
--- OUTSIDE RECORDS SUMMARY | 2024-05-22 07:09 | XMS_ITS | Continuity of Care Document ---
Author Organization [facility] Ponce lt Address [address] [place] [address]- Care Team Providers Care Peoplesoft Financial Developer Name Role Phone Antony Pappas MD Primary Care Physician [place] [facility] [place] 01[place]02/21 [facility] Adult [address] [place] [address]- Allergies, Adverse Reactions, Alerts Substance Reaction Severity [...] tetanus-diphtheria toxoids (Td) 07/26/98 Given 1Result Comment: [facility] # 2 scheduled for 10/02/20 2Admin Note: given in clinic 3Admin Note: vis given 4Admin Note: BIOMEDICAL RADHA 5Admin Note: Biomedical Radha [facility] 6Admin Note: given in clinic Medications amLODIPine 2.5 mg oral tablet 2.5 mg, 1, tablet, By Mouth, Daily, # 30 tablet, Refills 11, Tot. Refills 11, Maintenance, 06/07/2011:56:00 EST, Route to Pharmacy Electronically, [facility], Partial fill upon patient request, [...] 1 Refills, Maintenance, 08/01/20 9:55:00 EST, Tablet, [facility], 159, cm, 07/10/20 11:05:00 EST, Height Start Date: 08/01/20 Status: Ordered Breo Ellipta 100 mcg-25 mcg/inh inhalation powder 1 puffs, Inhalation, Daily, In place of QVAR 90 day supply, # 3 each, 1 Refills, Maintenance, 10/25/20 7:59:00 EDT, Powder, [facility], 1 puffs Inhalation Daily,Instr:In place of QVAR; 90 day supply, 159, cm, 10/10/20 12:46:00 EDT, Height Start Date: 10/25/20 Status: Ordered ergocalciferol 48813 iu oral capsule 1, capsule, By Mouth, Every week, # 5 capsule, Refills 12, Tot. Refills 0, Maintenance, 01/01/21 14:53:00 EDT, Route to Pharmacy Electronically, [facility], 159, cm, 11/27/20 15:59:00 EDT,Height [...] at bedtime, # 90 capsule, Refills 0, Tot. Refills 0, Maintenance, 12/03/20 16:08:00 EDT, Route to Pharmacy Electronically, [facility], 159, cm, 11/27/20 15:59:00 EDT, Height Start Date: 12/03/20 Stop Date: 03/03/21 Status: Ordered glipiZIDE 10 mg oral tablet 1 tablet = 10 mg, By Mouth, 2 times a day, # 180 tablet, 0 Refills, Maintenance, 12/03/20 14:10:00 EDT, Tablet, [facility], 159, cm, 11/27/20 15:59:00 EDT, Height Start Date: 12/03/20 Status: Ordered Insulin Syringe, BD Ultra-Fine 0.5 [...] 10/10/20 13:15:00 EDT, Route to Pharmacy Electronically, [facility], 159, cm, 10/10/20 12:46:00 EDT, [...] 09/25/20 15:22:00 EST, Route to Pharmacy Electronically, [facility], Partial fill upon patient request if the prescription is for a schedule II opioid d... Start Date: 09/25/20 Status: Ordered ProAir HFA 90 mcg/inh inhalation aerosol with adapter 2, puffs, Inhalation, Every 6 hours, PRN, # 8.5 Gm, Refills 1, Tot. Refills 1, Maintenance, 02/01/19 10:58:44 EDT, Aerosol, Route to Pharmacy Electronically, [id number], [facility] Start Date: 02/01/19 Status: Ordered ReliOn/Novolin N 100 units/mL subcutaneous injection See Instructions, INJECT 18 UNITS SUBCUTANEOUSLY IN THE MORNING AND 9 UNITS IN THE EVENING, # 10 mL, 2 Refills, 12/17/20 7:54:00 EDT, [facility], 159, cm, 11/27/20 15:59:00 EDT, Height Start Date: 12/17/20 Status: Ordered sildenafil 25 mg oral tablet See Instructions, PRN Other, 1 tablet By Mouth Daily as needed prior to sexual intercourse, # 2 tablet, 11 Refills, Maintenance, 06/25/20 15:44:00 EST, Tablet, [facility], 159, cm, 06/25/20 9:48:00 EST, Height Start Date: 06/25/20 Status: Ordered terazosin 5 mg oral capsule See Instructions, Take 1 capsule by mouth once daily at bedtime, # 90 capsule, Refills 0, Maintenance, Instructions Replace Required Details, Route to Pharmacy Electronically, [facility], 159, cm, 10/10/20 12:46:00 EDT, [...] u/s 2009 5colo 2012 nl, repeat 2022 21936 normal, repeat 2010 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 8Methacholine challenge test 2014 positive for asthma. 9Dr. Batroseanna 2014 10Patient declines further PSA testing as of October 2015. Social History Social History Type Response Smoking Status Former smoker; Other : Smoking age 55. social smoker; entered on: 09/29/16 Sex Male
--- OUTSIDE RECORDS SUMMARY | 2024-05-22 07:10 | XMS_ITS | Continuity of Care Document ---
Author Organization [facility] Address [address] [place] [address]- Care Team Providers Care Insulator Apprentice Name Role Phone Antony Pappas MD Primary Care Physician Encounter [facility] [place] Date(s): 09/10/22 - 10/18/22 [facility] [address] [place] [address]- Attending Physician: Wilda Regalado NP Admitting Physician: Fabricio MENDEZ, Wilda Klein Referring Physician: Antony Pappas MD Allergies, Adverse Reactions, Alerts No Known Allergies Immunizations Given and Recorded Vaccine Date Status Refusal Reason [id number] 12y+ bivalent booster vax 06/10/22 Given influenza [...] tetanus-diphtheria toxoids (Td) 07/26/98 Given 1Result Comment: [facility] # 2 scheduled for 10/02/20 2Admin Note: given in clinic 3Admin Note: vis given 4Admin Note: BIOMEDICAL RADHA 5Admin Note: Biomedical Radha [facility] 6Admin Note: given in clinic Medications Advair Diskus 250 mcg-50 mcg inhalation powder 1, puffs, Inhalation, 2 times a day, Give 3 month supply, # 3 each, Refills 3, Tot. Refills 3, Maintenance, 08/27/22 10:29:00 EST, Powder, Route to Pharmacy Electronically, [id number], [facility], [address],... Start Date: 08/27/22 Status: Ordered amLODIPine 2.5 mg oral tablet 1 tablet, By Mouth, Daily, # 90 tablet, 1 Refills, Maintenance, 07/13/22 15:46:00 EST, [facility], 160, cm, 06/10/22 10:45:00 EST, Height, 65, kg, 04/28/22 7:07:00 EDT, Dry Weight Start Date: 07/13/22 Status: Ordered aspirin 81 mg oral delayed release tablet 81 mg, 1, tablet, By Mouth, Daily, # 30 tablet, Refills 0, Maintenance, 09/07/18 15:22:30 EST Start Date: 09/07/18 Status: Ordered atorvastatin 80 mg oral tablet 1 tablet, By Mouth, Daily, # 90 tablet, 1 Refills, Maintenance, 09/08/22 14:54:00 EST, [facility], 160, cm, 07/30/22 9:45:00 EST, Height, 65, kg, 04/28/22 7:07:00 EDT, Dry Weight Start Date: 09/08/22 Status: Ordered ergocalciferol 56517 iu oral capsule 1, capsule, By Mouth, Every week, # 5 capsule, Refills 11, Route to Pharmacy Electronically, [facility], 159, cm, 12/29/21 10:39:00 EDT, Height Start Date: 01/07/22 Status: Ordered Farxiga 5 mg oral tablet 1 tablet = 5 mg, By Mouth, Daily, If Pt cannot afford we will try to get medication assist through the company., # 30 tablet, 3 Refills, Maintenance, 09/11/22 13:16:00 EST, Tablet, [facility], Partial fill upon patient [...] 05/27/22 18:05:00 EDT, Route to Pharmacy Electronically, [facility], 160, cm, 05/01/22 8:19:00 EDT, Height, 65, kg, 04/28/22 7:07:00 EDT, Dry Weight Start Date: 05/27/22 Status: Ordered glipiZIDE 10 mg oral tablet 1 tablet, By Mouth, 2 times a day, # 180 tablet, 3 Refills, Maintenance, 09/22/22 12:28:00 EST, [facility], 160, cm, 09/09/22 14:01:00 [...] 09/25/20 15:22:00 EST, Route to Pharmacy Electronically, [facility], Partial fill upon patient request if the prescription is for a schedule II opioid d... Start Date: 09/25/20 Status: Ordered Metoprolol Succinate ER 50 mg oral tablet, extended release 1 tablet, By Mouth, Daily, # 90 tablet, 3 Refills, Maintenance, 10/10/22 20:33:00 EDT, [facility], 160, cm, 09/24/22 9:03:00 EST, Height, 65, kg, 04/28/22 7:07:00 EDT, Dry Weight Start Date: 10/10/22 Status: Ordered montelukast 10 mg oral tablet See Instructions, Take 1 tablet by mouth once daily, # 30 tablet, Refills 5, Tot. Refills 5, Maintenance, 06/23/22 11:11:00 EST, Instructions Replace Required Details, Route to Pharmacy Electronically, [facility], 160, cm, 06/10/22 10:45:00... Start Date: 06/23/22 Status: Ordered ProAir HFA 90 mcg/inh inhalation aerosol with adapter 2, puffs, Inhalation, Every 6 hours, PRN, # 8.5 Gm, Refills 6, Tot. Refills 6, Maintenance, 11/10/21 10:21:00 EDT, Aerosol, Route to Pharmacy Electronically, [id number], [facility], 159, cm, 11/10/21 9:57:00 EDT, H... Start Date: 11/10/21 Status: Ordered ReliOn/Novolin 70/30 subcutaneous injection See Instructions, Inject SQ 10 Units qam and 8 units qpm(dinner time), 0 Refills, Maintenance, 10/08/22 12:49:00 EDT, Partial fill upon patient request if the prescription is for a schedule II opioiddrug. Start Date: 10/08/22 Status: Ordered terazosin 5 mg oral capsule 1, capsule, By Mouth, Daily at bedtime, # 90 capsule, Refills 0, Maintenance, 08/05/22 12:14:00 EST, Route to Pharmacy Electronically, [facility], 160, cm, 07/30/22 9:45:00 EST, Height, 65, kg, 04/28/22 7:07:00 EDT, Dry Weight Start Date: 08/05/22 Status: Ordered torsemide 20 mg oral tablet 2 tablet = 40 mg, By Mouth, Daily, # 180 tablet, 3 Refills, Maintenance, 09/09/22 14:25:00 EST, [facility], Partial fill upon patient request if the prescription is for a schedule II opioid drug., 160, cm, 09/09/22 14:01:00 EST, Height, 65,... Start Date: 09/09/22 Stop Date: 09/04/23 Status: Ordered Problem List Condition Confirmation Course [...] u/s 2009 5colo 2012 nl, repeat 2022 25488 normal, repeat 2010 7Status post CABG ??1. 2016. 8Methacholine challenge test 2014 positive for asthma. 9Dr. Batlan 2014 10Patient declines further PSA testing as of October 2015. Social History Social History Type Response Tobacco Other: quit age 52, smoked since age 22, 1/2 ppd. Sex Patient Care team information Care Team Personnel Name: Eliza Alejandre RN Position: [facility] RN Member Role: Primary Care Nurse Name: Breanna Moreno Position: [facility] Outreach Member Role: Lifetime Consulting Physician Name: Antony Pappas MD Position: [facility] Primary Care Physician Member Role: PCP Address: Address: [address] [place] [address]- Name: Silvia Lawrence RN Position: [facility] RN Member Role: Primary Care Nurse Name: Laura Chapin RN Position: [facility] RN Member Role: Primary Care Nurse Name: Lenora Martines NP Position: Reference Physician Member Role: Primary Care Nurse Address: Address: [address] [place] [address]- [place] Name: Carrol Strauss RN Position: [facility] AMB Nurse Member Role: Primary Care Nurse Name: Claire Carr RN Position: [facility] RN Member Role: Primary Care Nurse Name: Rachel Robledo RN Position: [facility] RN Member Role: Primary Care Nurse Name: Richa Owens RN Position: [facility] RN Member Role: Primary Care Nurse Care Team Related Persons Name: USHAMALACHIJ LUIS Address: home [address] [place] [address] Name: HARVINDER FRANCISCO Address: home [address] [place] [address]
--- OUTSIDE RECORDS SUMMARY | 2024-05-22 07:10 | XMS_ITS | Continuity of Care Document ---
Author Organization [facility] Florencia max Address [address] [place] [address]- Care Team Providers Care Roof Truss Builder Name Role Phone Antony Pappas MD Primary Care Physician Encounter [facility] Date(s): 09/13/19 - 12/29/19 [facility] [address] [address] [facility] Attending Physician: Lavonne Duff NP Referring Physician: Antony Pappas MD Allergies, Adverse [...] Note: BIOMEDICAL RADHA 4Admin Note: Biomedical Radha [facility] 5Admin Note: given in clinic Medications [...] Refills, Maintenance, Tablet, Route to Pharmacy Electronically, [id number], [facility] Start Date: 11/18/18 Status: Ordered Breo Ellipta 100 mcg-25 mcg/inh inhalation powder 1 puffs, Inhalation, Daily, In place of QVAR 90 day supply, # 3 each, 1 Refills, Maintenance, 09/27/19 10:26:00 EST, Powder, [facility], 1 puffs Inhalation Daily,Instr:In place [...] capsule, Refills 3, Tot. Refills 3, Maintenance, 05/13/20 8:34:00 EDT, Route to Pharmacy Electronically, [facility], 159, cm, 12/06/19 7:56:00 EDT, Height Start Date: 12/06/19 Stop Date: 11/30/20 Status: Ordered glipiZIDE 10 mg oral tablet 1 tablet = 10 mg, By Mouth, 2 times a day, # 180 tablet, 1 Refills, Maintenance, 08/29/19 11:00:00 EST, Tablet, [facility], 159, cm, 05/05/19 10:45:00 EDT, [...] 10/31/18 14:12:28 EDT, Route to Pharmacy Electronically, [id number], [facility] Start Date: 10/31/18 Status: Ordered lisinopril 20 mg oral tablet 20 mg, 1, tablet, By Mouth, Daily, # 30 tablet, Refills 0, Tot. Refills 0, Maintenance, 11/01/18 13:59:18 EDT, Route to Pharmacy Electronically, [id number], [facility] Start Date: 11/01/18 Status: Ordered metoprolol 25 mg oral tablet 25 mg, 1, tablet, By Mouth, 2 times a day, # 180 tablet, Refills 1, Tot. Refills 1, Maintenance, 08/29/19 11:02:00 EST, Route to Pharmacy Electronically, [facility], No change from last Rx. from 02/06/19, 159, cm, 05/05/19 10:45:00 EDT, Height Start Date: 08/29/19 Status: Ordered ProAir HFA 90 mcg/inh inhalation aerosol with adapter 2, puffs, Inhalation, Every 6 hours, PRN, # 8.5 Gm, Refills 1, Tot. Refills 1, Maintenance, 02/01/19 10:58:44 EDT, Aerosol, Route to Pharmacy Electronically, [id number], [facility] Start Date: 02/01/19 Status: Ordered ReliOn/Novolin N 100 units/mL subcutaneous injection See Instructions, INJECT 18 UNITS SUBCUTANEOUSLY IN THE MORNING AND 9 IN THE EVENING, # 10 mL, 3 Refills, Maintenance, 08/17/19 13:20:00 EST, [facility], 90 day, 159, cm, 05/05/19 10:45:00EDT, Height Start Date: 08/17/19 Status: Ordered terazosin 5 mg oral capsule 5 mg, 1, capsule, By Mouth, Daily at bedtime, # 90 capsule, Refills 3, Tot. Refills 3, Maintenance,01/10/19 11:43:33 EDT, Route to Pharmacy Electronically, [id number], [facility] Start Date: 01/10/19 Status: Ordered Vitamin D 04275 iu oral capsule 50,000 International_Units, 1, capsule, By Mouth, Every week, # 5 capsule, Refills 11, Tot. [id number], Maintenance, 05/05/19 10:57:40 EDT, Route to Pharmacy Electronically, [id number], [facility] Start Date: 05/05/19 Status: Ordered [...] u/s 2009 5colo 2012 nl, repeat 2022 69405 normal, repeat 2010 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 8Methacholine challenge test 2014 positive for asthma. 9Dr. Misa 2014 10Patient declines further PSA testing as of October 2015. Social History Social History Type Response Smoking Status Former smoker; Other : Smoking age 55. social smoker; entered on: 09/29/16 Sex
--- OUTSIDE RECORDS SUMMARY | 2024-05-22 07:10 | XMS_ITS | Continuity of Care Document ---
Author Organization [facility] Address [address] [place] [address]- Care Team Providers Care Grocery Store Courtesy Clerk Name Role Phone Antony Pappas MD Primary Care Physician [phone] [place] [facility] [place]22 [facility] [address] [place] [address]- Attending Physician: Antony Pappas MD Allergies, Adverse [...] vaccine, inactivated 05/07/20 Recorded zoster vaccine, inactivated 8/24/20 Recorded Influenza Virus Vaccine (oldterm) 05/06/20 Recorde [...] tetanus-diphtheria toxoids (Td) 07/26/98 Given 1Result Comment: [facility] # 2 scheduled for 10/02/20 2Admin Note: given in clinic 3Admin Note: vis given 4Admin Note: BIOMEDICAL RADHA 5Admin Note: Biomedical Radha [facility] 6Admin Note: given in clinic Medications Advair Diskus 250 mcg-50 mcg inhalation powder 1, puffs, Inhalation, 2 times a day, Give 3 month supply, # 3 each, Refills 3, Tot. Refills 3, Maintenance, 09/26/21 10:53:00 EST, Powder, Route to Pharmacy Electronically, [id number], [facility], 159,... Start Date: 09/26/21 Status: Ordered amLODIPine 2.5 mg oral tablet 1 tablet, By Mouth, Daily, # 90 tablet, 1 Refills, [facility], 159, cm, 11/26/21 11:06:00 EDT, Height Start Date: 12/09/21 Status: Ordered amoxicillin 500 mg oral tablet 2 tablet = 1,000 mg, By Mouth, Every 12 hours, for 12 days, # 48 tablet, 0 Refills, Acute 02/11/22 12:35:00 EDT, 01/30/22 12:35:00 EDT, Tablet, [facility], Partial fill upon patient [...] Daily, # 90 tablet, 1 Refills, [facility], 159, cm, 05/28/21 10:42:00 EDT, Height Start Date: 08/19/21 Status: Ordered ergocalciferol 29044 iu oral capsule 1, capsule, By Mouth, Every week, # 5 capsule, Refills 11, Route to Pharmacy Electronically, [facility], 159, cm, 12/29/21 10:39:00 EDT, [...] a day, # 270 tablet, Refills 1, Tot. Refills 1, 02/05/22 13:25:00 EDT, Route to Pharmacy Electronically, [facility], 160, cm, 02/02/22 8:07:00 EDT, Height Start Date: 02/05/22 Status: Ordered gabapentin 300 mg oral capsule 1, capsule, By Mouth, Daily at bedtime, # 90 capsule, Refills 3, Route to Pharmacy Electronically, [facility], 159, cm, 02/20/21 6:56:00 EDT, Height Start Date: 05/20/21 Status: Ordered glipiZIDE 10 mg oral tablet 1 tablet, By Mouth, 2 times a day, # 180 tablet, 1 Refills, [facility], 159, cm, 11/21/21 11:16:00 [...] 15:22:00 EST, Route to Pharmacy Electronically, [facility], Partial fill upon patient request if the prescription is for a schedule II opioid d... Start Date: 09/25/20 Status: Ordered ProAir HFA 90 mcg/inh inhalation aerosol with adapter 2, puffs, Inhalation, Every 6 hours, PRN, # 8.5 Gm, Refills 6, Tot. Refills 6, Maintenance, 11/10/21 10:21:00 EDT, Aerosol, Route to Pharmacy Electronically, [id number], [facility], 159, cm, 11/10/21 9:57:00 EDT, H... Start Date: 11/10/21 Status: Ordered ReliOn/Novolin N 100 units/mL subcutaneous injection See Instructions, INJECT 18 UNITS SUBCUTANEOUSLY IN THE MORNING AND 9 IN THE EVENING, # 10 mL, 5 Refills, [facility], 159, cm, 09/04/21 13:27:00 EST, Height Start Date: 10/06/21 Status: Ordered sildenafil 25 mg oral tablet 1 tablet, By Mouth, Daily, PRN NEEDED, PRIOR TO SEXUAL INTERCOURSE., # 2 tablet, 11 Refills, [facility], 159, cm, 11/26/21 11:06:00 EDT, Height Start Date: 12/08/21 Status: Ordered Singulair 10 mg oral tablet 10 mg, 1, tablet, By Mouth, Daily, # 30 tablet, Refills 6, Tot. Refills 6, Maintenance, 11/10/21 10:21:00 EDT, Route to Pharmacy Electronically, [facility], Partial fill upon patient request if the prescription is for a schedule II opioid d... Start Date: 11/10/21 Status: Ordered terazosin 5 mg oral capsule 1, capsule, By Mouth, Daily at bedtime, # 90 capsule, Refills 1, Route to Pharmacy Electronically, [facility], 160, cm, 01/30/22 5:01:00 EDT, Height Start Date: 02/01/22 Status: Ordered Problem List Condition Effective Dates [...] pneumonia(Confirmed) Active 1Status post aortic valve replacement 2017. 2by echo 2009 mild 3elevated, prostate biopsy negative 4less than 50 % b/l by u/s 2009 5colo 2012 nl, repeat 2022 16962 normal, repeat 2010 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 8Methacholine challenge test 2014 positive for asthma. 9DrAngy Bynum 2015 10Patient declines further PSA testing as of October 2015. Vital Signs Most recent to oldest [Reference Range]: 1 Height 160 cm (02/02/22 8:07 AM) Weight 68.8 kg (02/02/22 8:07 AM) Oxygen Saturation [94-100 %] 96 % (02/02/22 8:07 AM) Pulse Rate [55-90 bpm] 78 bpm (02/02/22 8:07 AM) Body Mass Index [18.5-24.99] 26.88 *H* (02/02/22 8:07 AM) Blood Pressure [90-138/55-84 mm Hg] 120/ 60mm Hg (02/02/22 8:07 AM) Temperature [96.8-100.4 DegF] 97.7 DegF (02/02/22 8:07 AM) Mode of Delivery (Oxygen) Room air (02/02/22 8:07 AM) Blood pressure sites Arm, right (02/02/22 8:07 AM) Temperature Route Oral (02/02/22 8:07 AM) Weight Obtained Via Standing scale (02/02/22 8:07 AM) Social History Social History Type Response Tobacco Other: quit age 52, smoked since age 22, 1/2 ppd. Sex
--- OUTSIDE RECORDS SUMMARY | 2024-05-22 07:10 | XMS_ITS | Continuity of Care Document ---
Author Organization [facility] Address [address] [place] [address]- Care Team Providers Care Adoption Worker Name Role Phone Antony Pappas MD Primary Care Physician Encounter [facility] Date(s): 10/10/20 - 10/17/20 [facility] Adult [address] [place] [address]- Encounter Diagnosis CHF (congestive heart failure)(Discharge Diagnosis) - 10/10/20 Background diabetic retinopathy(Discharge Diagnosis) - 10/10/20 Chronic renal disease, stage III(Discharge Diagnosis) - 10/10/20 Diabetic neuropathy(Discharge Diagnosis) - 10/10/20 CAD (coronary artery disease)(Discharge Diagnosis) - 10/10/20 HTN (hypertension)(Discharge Diagnosis) - 10/10/20 Hypercholesterolemia(Discharge Diagnosis) - 10/10/20 Psoriatic arthritis(Discharge Diagnosis) - 10/10/20 RA (rheumatoid arthritis)(Discharge Diagnosis) - 10/10/20 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 Refills 11, Maintenance, 06/07/2011:56:00 EST, Route to Pharmacy Electronically, [facility], Partial fill upon patient request, [...] 1 Refills, Maintenance, 08/01/20 9:55:00 EST, Tablet, [facility], 159, cm, 12/16/20 11:05:00 EST, Height Start Date: 08/01/20 Status: Ordered Breo Ellipta 100 mcg-25 mcg/inh inhalation powder 1 puffs, Inhalation, Daily, In place of QVAR 90 day supply, # 3 each, 1 Refills, Maintenance, 04/15/20 14:44:00 EDT, Powder, [facility], 1 puffs Inhalation Daily,Instr:In place of QVAR; 90day supply, 159, cm, 01/30/20 15:17:00 EDT, Height Start Date: 04/15/20 Status: Ordered ergocalciferol 08923 iu oral capsule 50,000 International_Units, 1, capsule, By Mouth, Every week, # 5 capsule, Refills 5, Tot. Refills 5, Maintenance, 05/29/20 13:54:00 EST, Route to Pharmacy Electronically, [facility], 159,cm, 05/24/20 8:57:00 EDT, Height [...] 12/06/19 8:34:00 EDT, Route to Pharmacy Electronically, [facility], 159, cm, 12/06/19 7:56:00 EDT, Height Start Date: 12/06/19 Stop Date: 11/30/20 Status: Ordered glipiZIDE 10 mg oral tablet 1 tablet = 10 mg, By Mouth, 2 times a day, # 180 tablet, 0 Refills, Maintenance, 08/27/20 8:20:00 EST, Tablet, [facility], 159, cm, 07/10/20 11:05:00 EST, [...] times a day, # 180 tablet, Refills 3, Tot. Refills 3, Maintenance, 10/10/20 13:15:00 EDT, Route to Pharmacy Electronically, [facility], 159, cm, 10/10/20 12:46:00 EDT, Height Start Date: 10/10/20 Stop Date: 10/05/21 Status: Ordered metoprolol 50 mg oral tablet, extended release 50 mg, 1, tablet, By Mouth, Daily, # 90 tablet, Refills 3, Tot. Refills 3, Maintenance, 09/25/20 15:22:00 EST, Route to Pharmacy Electronically, [facility], Partial fill upon patient request if the prescription is for a schedule II opioid d... Start Date: 09/25/20 Status: Ordered ProAir HFA 90 mcg/inh inhalation aerosol with adapter 2, puffs, Inhalation, Every 6 hours, PRN, # 8.5 Gm, Refills 1, Tot. Refills 1, Maintenance, 02/01/19 10:58:44 EDT, Aerosol, Route to Pharmacy Electronically, [id number], [facility] Start Date: 02/01/19 Status: Ordered ReliOn/Novolin N 100 units/mL subcutaneous injection See Instructions, INJECT 18 UNITS SUBCUTANEOUSLY IN THE MORNING AND 9 UNITS IN THE EVENING, # 10 mL, 1 Refills, 10/08/20 13:42:00 EDT, [facility], 159, cm, 07/10/20 11:05:00 EST, Height Start Date: 10/08/20 Status: Ordered sildenafil 25 mg oral tablet See Instructions, PRN Other, 1 tablet By Mouth Daily as needed prior to sexual intercourse, # 2 tablet, 11 Refills, Maintenance, 06/25/20 15:44:00 EST, Tablet, [facility], 159, cm, 06/25/20 9:48:00 EST, Height Start Date: 06/25/20 Status: Ordered terazosin 5 mg oral capsule See Instructions, Take 1 capsule by mouth once daily at bedtime, # 90 capsule, Refills 0, Maintenance, Instructions Replace Required Details, Route to Pharmacy Electronically, [facility], 159, cm, 10/10/20 12:46:00 EDT, Height Start Date: 10/10/20 Status: Ordered terazosin 5 mg oral capsule 5 mg, 1, capsule, By Mouth, Daily at bedtime, # 90 capsule, Refills 1, Tot. 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 2by echo 2010 mild 3elevated, prostate biopsy negative 4less than 50 % b/l by u/s 2009 5colo 2012 nl, repeat 2022 72134 normal, repeat 2010 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 8Methacholine challenge test 2014 positive for asthma. 9Dr. Misa 2014 10Patient declines further PSA testing as of October 2015. Diagnosis Diagnosis Type Effective Dates Health Status Clinical Service Informant CHF (congestive heart failure) Discharge Diagnosis 10/10/20 Background diabetic retinopathy Discharge Diagnosis 10/10/20 Chronic renal disease, stage III Discharge Diagnosis 10/10/20 Diabetic neuropathy Discharge Diagnosis 10/10/20 CAD (coronary artery disease) Discharge Diagnosis 10/10/20 HTN (hypertension) Discharge Diagnosis 10/10/20 Hypercholesterolemia Discharge Diagnosis 10/10/20 Psoriatic arthritis Discharge Diagnosis 10/10/20 RA (rheumatoid arthritis) Discharge Diagnosis 10/10/20 Type II diabetes mellitus with renal manifestations Discharge Diagnosis 10/10/20 Vital Signs Most recent to oldest [Reference Range]: 1 Height 159 cm (10/10/20 12:46 PM) Weight 73.3 kg (10/10/20 12:46 PM) Oxygen Saturation [94-100 %] 96 % (10/10/20 12:46 PM) Pulse Rate [55-90 bpm] 66 bpm (10/10/20 12:46 PM) Body Mass Index [18.5-24.99] 28.99 *H* (10/10/20 12:46 PM) Blood Pressure [90-138/55-84 mm Hg] 128/ 56mm Hg (10/10/20 12:46 PM) Respiratory Rate [16-30 br/min] 16 br/mi n (10/10/20 12:46 PM) Temperature [96.8-100.4 DegF] 98.1 DegF (10/10/20 12:46 PM) Mode of Delivery (Oxygen) Room air (10/10/20 12:46 PM) Blood pressure sites Arm, right (10/10/20 12:46 PM) Temperature Route Oral (10/10/20 12:46 PM) Weight Obtained Via Standing scale (10/10/20 12:46 PM) Social History Social History Type Response Smoking Status Former smoker; Other : Smoking age 55. social smoker; entered on: 09/29/16 Sex Male
--- OUTSIDE RECORDS SUMMARY | 2024-05-22 07:10 | XMS_ITS | Continuity of Care Document ---
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 Role Phone Antony Pappas MD Primary Care Physician Encounter [facility] Date(s): 04/17/22 - 05/17/22 [facility] [address] [place] [id number] Attending Physician: AdmWero kulkarni Admitting Physician: Admtr, [id number] Referring Physician: Admtr, [id number] Allergies, Adverse Reactions, [...] toxoids (Td) 07/26/98 Given 1Result Comment: [facility] # 2 scheduled for 10/02/20 2Admin Note: given in clinic 3Admin Note: vis given 4Admin Note: BIOMEDICAL RADHA 5Admin Note: Biomedical Radha [facility] 6Admin Note: given in clinic Medications Advair Diskus 250 mcg-50 mcg inhalation powder 1, puffs, Inhalation, 2 times a day, Give 3 month supply, # 3 each, Refills 3, Tot. Refills 3, Maintenance, 09/26/21 10:53:00 EST, Powder, Route to Pharmacy Electronically, [id number], [facility], 159,... Start Date: 09/26/21 Status: Ordered amLODIPine 2.5 mg oral tablet 1 tablet, By Mouth, Daily, # 90 tablet, 1 Refills, [facility], 159, cm, 11/26/21 11:06:00 EDT, Height Start Date: 12/09/21 Status: Ordered aspirin 81 mg oral delayed release tablet 81 mg, 1, tablet, By Mouth, Daily, # 30 tablet, Refills 0, Maintenance, 09/07/18 15:22:30 EST Start Date: 09/07/18 Status: Ordered atorvastatin 80 mg oral tablet 1 tablet, By Mouth, Daily, # 90 tablet, 1 Refills, Maintenance, 02/14/22 11:19:00 EDT, [facility], 160, cm, 02/02/22 8:07:00 EDT, Height Start Date: 02/14/22 Status: Ordered Entresto 24 mg-26 mg oral tablet 1 tablet, By Mouth, 2 times a day, On hold 04/14/[address] Papp[address] and Dr[address] Junior, # 60 tablet, 3 Refills,Maintenance, 03/20/22 12:20:00 EDT, Tablet, [facility], Partial fill upon patient request if the prescription is for a schedule II opioid... Start Date: 03/20/22 Stop Date: 07/18/22 Status: Ordered ergocalciferol 84621 iu oral capsule 1, capsule, By Mouth, Every week, # 5 capsule, Refills 11, Route to Pharmacy Electronically, [facility], 159, cm, 12/29/21 10:39:00 [...] capsule, Refills 3, Route to Pharmacy Electronically, [facility], 159, cm, 02/20/21 6:56:00 EDT, Height Start Date: 05/20/21 Status: Ordered glipiZIDE 10 mg oral tablet 1 tablet, By Mouth, 2 times a day, # 180 tablet, 1 Refills, [facility], 159, cm, 11/21/21 11:16:00 EDT, Height Start Date: 11/25/21 Status: Ordered Imodium Capsule 2 mg, By Mouth, Every 4 hours, PRn loose stools, Refills 0, Maintenance, 05/08/22 10:18:00 EDT, Partial fill upon patient request if the prescription is for a schedule II opioid drug. Start Date: 05/08/22 Status: Ordered Insulin Syringe, BD Ultra-Fine 0.5 [...] 09/25/20 15:22:00 EST, Route to Pharmacy Electronically, [facility], Partial fill upon patient request if the prescription is for a schedule II opioid d... Start Date: 09/25/20 Status: Ordered ProAir HFA 90 mcg/inh inhalation aerosol with adapter 2, puffs, Inhalation, Every 6 hours, PRN, # 8.5 Gm, Refills 6, Tot. Refills 6, Maintenance, 11/10/21 10:21:00 EDT, Aerosol, Route to Pharmacy Electronically, [id number], [facility], 159, cm, 11/10/21 9:57:00 EDT, H... Start Date: 11/10/21 Status: Ordered ReliOn/Novolin N 100 units/mL subcutaneous injection See Instructions, INJECT 18 UNITS SUBCUTANEOUSLY IN THE MORNING AND 9 IN THE EVENING, # 10 mL, 0 Refills, Maintenance, 05/07/22 8:49:00 EDT, [facility], 160, cm, 05/01/22 8:19:00 EDT, Height, 65, kg, 04/28/22 7:07:00 EDT, Dry Weight Start Date: 05/07/22 Status: Ordered Singulair 10 mg oral tablet 10 mg, 1, tablet, By Mouth, Daily, # 30 tablet, Refills 6, Tot. Refills 6, Maintenance, 11/10/21 10:21:00 EDT, Route to Pharmacy Electronically, [facility], Partial fill upon patient request if the prescription is for a schedule II opioid d... Start Date: 11/10/21 Status: Ordered terazosin 5 mg oral capsule 1, capsule, By Mouth, Daily at bedtime, # 90 capsule, Refills 1, Route to Pharmacy Electronically, [facility], 160, cm, 01/30/22 5:01:00 EDT, Height Start Date: 02/01/22 Status: Ordered torsemide 40 mg oral tablet 1 tablet = 40 mg, By Mouth, Daily, 40mg po every other day per Dr. Pappas and Dr. Junior, # 30 tablet, 1 Refills, Maintenance, 03/20/22 12:20:00 EDT, [facility], Partial fill upon patient request if the prescription is for a schedule II opioid... Start Date: 03/20/22 Stop Date: 05/19/22 Status: Ordered vancomycin 125 mg oral capsule 1 capsule = 125 mg, By Mouth, Every 6 hours, for 10 days, # 40 capsule, 0 Refills, Acute 05/18/22 9:57:00 EDT, 05/08/22 9:57:00 EDT, Capsule, [facility], Partial fill upon patient request if the prescription is for a schedule II opioid drug... Start Date: 05/08/22 Stop Date: 05/18/22 Status: Ordered Problem List Condition Confirmation Course [...] u/s 2009 5colo 2012 nl, repeat 2022 05164 normal, repeat 2010 7Status post CABG ??1. 2016. 8Methacholine challenge test 2014 positive for asthma. 9Dr. Batlan 2014 10Patient declines further PSA testing as of October 2015. Social History Social History Type Response Tobacco Other: quit age 52, smoked since age 22, 1/2 ppd. Sex Patient Care team information Personnel Name: Elyse LEE, Antony Ospina Address: Address: [address] [place] [id number]
--- OUTSIDE RECORDS SUMMARY | 2024-05-22 07:10 | XMS_ITS | Continuity of Care Document ---
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 Name Role Phone Antony Pappas MD Primary Care Physician Encounter [facility] [place] Date(s): 11/21/21 - 11/28/21 [facility] [address] [place] [address]- Attending Physician: Antony Pappas MD Allergies, Adverse [...] tetanus-diphtheria toxoids (Td) 07/26/98 Given 1Result Comment: [facility] # 2 scheduled for 10/02/20 2Admin Note: given in clinic 3Admin Note: vis given 4Admin Note: BIOMEDICAL RADHA 5Admin Note: Biomedical Radha [facility] 6Admin Note: given in clinic Medications Advair Diskus 250 mcg-50 mcg inhalation powder 1, puffs, Inhalation, 2 times a day, Give 3 month supply, # 3 each, Refills 3, Tot. Refills 3, Maintenance, 09/26/21 10:53:00 EST, Powder, Route to Pharmacy Electronically, [id number], [facility], 159,... Start Date: 09/26/21 Status: Ordered amLODIPine 2.5 mg oral tablet 1 tablet, By Mouth, Daily, # 30 tablet, 5 Refills, [facility], 159, cm, 05/28/21 10:42:00 EDT, Height Start Date: 06/13/21 Status: Ordered aspirin 81 mg oral delayed release tablet 81 mg, 1, tablet, By Mouth, Daily, # 30 tablet, Refills 0, Maintenance, 09/07/18 15:22:30 EST Start Date: 09/07/18 Status: Ordered atorvastatin 80 mg oral tablet 1 tablet, By Mouth, Daily, # 90 tablet, 1 Refills, [facility], 159, cm, 05/28/21 10:42:00 EDT, Height Start Date: 08/19/21 Status: Ordered ergocalciferol 50860 iu oral capsule 1, capsule, By Mouth, Every week, # 5 capsule, Refills 12, Tot. Refills 0, Maintenance, 01/01/21 14:53:00 EDT, Route to Pharmacy Electronically, [facility], 159, cm, 11/27/20 15:59:00 [...] tablet, Refills 1, Route to Pharmacy Electronically, [facility], 159, cm, 05/28/21 10:42:00 EDT, Height Start Date: 06/23/21 Status: Ordered gabapentin 300 mg oral capsule 1, capsule, By Mouth, Daily at bedtime, # 90 capsule, Refills 3, Route to Pharmacy Electronically, [facility], 159, cm, 02/20/21 6:56:00 EDT, Height Start Date: 05/20/21 Status: Ordered glipiZIDE 10 mg oral tablet 1 tablet, By Mouth, 2 times a day, # 180 tablet, 1 Refills, [facility], 159, cm, 11/21/21 11:16:00 [...] 09/25/20 15:22:00 EST, Route to Pharmacy Electronically, [facility], Partial fill upon patient request if the prescription is for a schedule II opioid d... Start Date: 09/25/20 Status: Ordered Metoprolol Succinate ER 50 mg oral tablet, extended release 1 tablet, By Mouth, Daily, # 90 tablet, 3 Refills, [facility], 159, cm, 09/04/21 13:27:00 EST, Height Start Date: 10/02/21 Status: Ordered ProAir HFA 90 mcg/inh inhalation aerosol with adapter 2, puffs, Inhalation, Every 6 hours, PRN, # 8.5 Gm, Refills 6, Tot. Refills 6, Maintenance, 11/10/21 10:21:00 EDT, Aerosol, Route to Pharmacy Electronically, [id number], [facility], 159, cm, 11/10/21 9:57:00 EDT, H... Start Date: 11/10/21 Status: Ordered ReliOn/Novolin N 100 units/mL subcutaneous injection See Instructions, INJECT 18 UNITS SUBCUTANEOUSLY IN THE MORNING AND 9 IN THE EVENING, # 10 mL, 5 Refills, [facility], 159, cm, 09/04/21 13:27:00 EST, Height Start Date: 10/06/21 Status: Ordered sildenafil 25 mg oral tablet 1 tablet, By Mouth, Daily, PRN NEEDED, PRIOR TO SEXUAL INTERCOURSE., # 2 tablet, 11 Refills, Maintenance, 01/30/21 7:57:00 EDT, [facility], 159, cm, 11/27/20 15:59:00 EDT, Height Start Date: 01/30/21 Status: Ordered Singulair 10 mg oral tablet 10 mg, 1, tablet, By Mouth, Daily, # 30 tablet, Refills 6, Tot. Refills 6, Maintenance, 11/10/21 10:21:00 EDT, Route to Pharmacy Electronically, [facility], Partial fill upon patient request if the prescription is for a schedule II opioid d... Start Date: 11/10/21 Status: Ordered terazosin 5 mg oral capsule 1, capsule, By Mouth, Daily at bedtime, # 90 capsule, Refills 0, Route to Pharmacy Electronically, [facility], 159, cm, 09/04/21 13:27:00 [...] u/s 2009 5colo 2012 nl, repeat 2022 09414 normal, repeat 2010 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 8Methacholine challenge test 2014 positive for asthma. 9DrAngy Bynum 2014 10Patient declines further PSA testing as of October 2015. Vital Signs Most recent to oldest [Reference Range]: 1 Height 159 cm (11/21/21 11:16 AM) Weight 68.9 kg (11/21/21 11:16 AM) Oxygen Saturation [94-100 %] 98 % (11/21/21 11:16 AM) Pulse Rate [55-90 bpm] 68 bpm (11/21/21 11:16 AM) Body Mass Index [18.5-24.99] 27.25 *H* (11/21/21 11:16 AM) Blood Pressure [90-138/55-84 mm Hg] 132/ 66mm Hg (11/21/21 11:16 AM) Mode of Delivery (Oxygen) Room air (11/21/21 11:16 AM) Blood pressure sites Arm, left (11/21/21 11:16 AM) Weight Obtained Via Standing scale (11/21/21 11:16 AM) Social History Social History Type Response Smoking Status Former smoker; Other : Smoking age 55. social smoker; entered on: 09/29/16 Sex
--- OUTSIDE RECORDS SUMMARY | 2024-05-22 07:10 | XMS_ITS | Continuity of Care Document ---
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 Role Phone Antony Pappas MD Primary Care Physician [phone] [place] [facility] [place] 07[place]17/20 [facility] Adult [address] [place] [address]- Encounter Diagnosis CHF (congestive heart failure)(Discharge Diagnosis) - 07/10/20 Chronic renal disease, stage III(Discharge Diagnosis) - 07/10/20 HTN (hypertension)(Discharge Diagnosis) - 07/10/20 Attending Physician: Antony Pappas MD Allergies, Adverse [...] Note: BIOMEDICAL RADHA 4Admin Note: Biomedical Radha [facility] 5Admin Note: given in clinic Medications amLODIPine 2.5 mg oral tablet 2.5 mg, 1, tablet, By Mouth, Daily, # 30 tablet, Refills 11, Tot. Refills 11, Maintenance, 06/07/2011:56:00 EST, Route to Pharmacy Electronically, [facility], Partial fill upon [...] 1 Refills, Maintenance, 01/10/20 15:14:00 EDT, Tablet, [facility], 159, cm, 01/05/20 10:36:00 EDT, Height Start Date: 01/10/20 Status: Ordered Breo Ellipta 100 mcg-25 mcg/inh inhalation powder 1 puffs, Inhalation, Daily, In place of QVAR 90 day supply, # 3 each, 1 Refills, Maintenance, 04/15/20 14:44:00 EDT, Powder, [facility], 1 puffs Inhalation Daily,Instr:In place of QVAR; day supply, 159, cm, 01/30/20 15:17:00 EDT, Height Start Date: 04/15/20 Status: Ordered ergocalciferol 34327 iu oral capsule 50,000 International_Units, 1, capsule, By Mouth, Every week, # 5 capsule, Refills 5, Tot. Refills 5, Maintenance, 05/29/20 13:54:00 EST, Route to Pharmacy Electronically, [facility], 159,cm, 05/24/20 8:57:00 EDT, Height [...] 12/06/19 8:34:00 EDT, Route to Pharmacy Electronically, [facility], 159, cm, 12/06/19 7:56:00 EDT, Height Start Date: 12/06/19 Stop Date: 11/30/20 Status: Ordered glipiZIDE 10 mg oral tablet 1 tablet = 10 mg, By Mouth, 2 times a day, # 180 tablet, 0 Refills, Maintenance, 06/03/20 15:55:00 EST, Tablet, [facility], 159, cm, 05/24/20 8:57:00 EDT, [...] 06/03/20 15:55:00 EST, Route to Pharmacy Electronically, [facility], 159, cm, 05/24/20 8:57:00 EDT, Height Start Date: 06/03/20 Status: Ordered Metoprolol Tartrate 25 mg oral tablet 1 tablet, By Mouth, 2 times a day, # 180 tablet, 0 Refills, Maintenance, 06/03/20 15:55:00 EST, [facility], 159, cm, 05/24/20 8:57:00 EDT, Height Start Date: 06/03/20 Status: Ordered ProAir HFA 90 mcg/inh inhalation aerosol with adapter 2, puffs, Inhalation, Every 6 hours, PRN, # 8.5 Gm, Refills 1, Tot. Refills 1, Maintenance, 02/01/19 10:58:44 EDT, Aerosol, Route to Pharmacy Electronically, [id number], [facility] Start Date: 02/01/19 Status: Ordered ReliOn/Novolin N 100 units/mL subcutaneous injection See Instructions, INJECT 18 UNITS SUBCUTANEOUSLY IN THE MORNING AND 9 IN THE EVENING, # 10 mL, 2 Refills, Maintenance, 05/29/20 13:05:00 EST, [facility], 90 day, 159, cm, 05/24/20 8:57:00 EDT, Height Start Date: 05/29/20 Status: Ordered sildenafil 25 mg oral tablet See Instructions, PRN Other, 1 tablet By Mouth Daily as needed prior to sexual intercourse, # 2 tablet, 11 Refills, Maintenance, 06/25/20 15:44:00 EST, Tablet, [facility], 159, cm, 06/25/20 9:48:00 EST, Height Start Date: 06/25/20 Status: Ordered terazosin 5 mg oral capsule 5 mg, 1, capsule, By Mouth, Daily at bedtime, # 90 capsule, Refills 1, Tot. Refills 1, Maintenance,04/15/20 14:45:00 EDT, Route to Pharmacy Electronically, [facility], 159, cm, 01/30/20 15:17:00 EDT, [...] u/s 2009 5colo 2012 nl, repeat 2022 [address] normal, repeat 2010 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 8Methacholine challenge test 2014 positive for asthma. 9Dr. Batroseanna 2014 10Patient declines further PSA testing as of October 2015. Diagnosis Diagnosis Type Effective Dates Health Status Cl inical Service Informant CHF (congestive heart failure) Discharge Diagnosis 07/10/20 Chronic renal disease, stage III Discharge Diagnosis 07/10/20 HTN (hypertension) Discharge Diagnosis 07/10/20 Vital Signs Most recent to oldest [Reference Range]: 1 Height 159 cm (07/10/20 11:05 AM) Weight 75.1 kg (07/10/20 11:05 AM) Body Mass Index [18.5-24.99] 29.71 *H* (07/10/20 11:05 AM) Blood Pressure [90-138/55-84 mm Hg] 134/ 78mm Hg (07/10/20 11:05 AM) Mode of Delivery (Oxygen) Room air (07/10/20 11:05 AM) Blood pressure sites Arm, left (07/10/20 11:05 AM) Weight Obtained Via Standing scale (07/10/20 11:05 AM) Social History Social History Type Response Smoking Status Former smoker; Other : Smoking age 55. social smoker; entered on: 09/29/16 Sex Male
--- OUTSIDE RECORDS SUMMARY | 2024-05-22 07:10 | XMS_ITS | Continuity of Care Document ---
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 [place] Date(s): 06/07/21 - 10/05/21 [facility] [address] [place], [place] [id number]- Attending Physician: Pepe Junior MD Admitting Physician: Pepe Junior MD Referring Physician: Antony Pappas MD Allergies, Adverse Reactions, Alerts No Known Allergies Immunizations Given and Recorded Vaccine Date Status Refusal Reason influenza virus vaccine, inactivated 05/23/21 Give n influenza virus vaccine, inactivated 05/05/19 Give n influenza virus vaccine, inactivated 05/13/17 Give n influenza virus vaccine, inactivated 05/21/16 Give n influenza virus vaccine, inactivated 04/24/15 Give n influenza virus vaccine, inactivated 05/09/13 Give n influenza virus vaccine, inactivated 05/13/11 Give n influenza virus vaccine, inactivated 07/26/04 Give n SARS-CoV-2 (COVID-19) mRNA BNT-162b2 vac 10/08/20 Recorded [...] tetanus-diphtheria toxoids (Td) 07/26/98 Given 1Result Comment: [facility] # 2 scheduled for 10/02/20 2Admin Note: given in clinic 3Admin Note: vis given 4Admin Note: BIOMEDICAL RADHA 5Admin Note: Biomedical Radha [facility] 6Admin Note: given in clinic Medications Advair Diskus 250 mcg-50 mcg inhalation powder 1, puffs, Inhalation, 2 times a day, Give 3 month supply, # 3 each, Refills 3, Tot. Refills 3, Maintenance, 09/26/21 10:53:00 EST, Powder, Route to Pharmacy Electronically, [id number], [facility], 159,... Start Date: 09/26/21 Status: Ordered amLODIPine 2.5 mg oral tablet 1 tablet, By Mouth, Daily, # 30 tablet, 5 Refills, [facility], 159, cm, 05/28/21 10:42:00 EDT, Height Start Date: 06/13/21 Status: Ordered aspirin 81 mg oral delayed release tablet 81 mg, 1, tablet, By Mouth, Daily, # 30 tablet, Refills 0, Maintenance, 09/07/18 15:22:30 EST Start Date: 09/07/18 Status: Ordered atorvastatin 80 mg oral tablet 1 tablet, By Mouth, Daily, # 90 tablet, 1 Refills, [facility], 159, cm, 05/28/21 10:42:00 EDT, Height Start Date: 08/19/21 Status: Ordered ergocalciferol 30310 iu oral capsule 1, capsule, By Mouth, Every week, # 5 capsule, Refills 12, Tot. Refills 0, Maintenance, 01/01/21 14:53:00 EDT, Route to Pharmacy Electronically, [facility], 159, cm, 11/27/20 15:59:00 EDT,Height Start Date: 01/01/21 Status: Ordered Freestyle Lite Test Strips See Instructions, # 180 each, Refills 3, Tot. Refills 3, Maintenance, Use to test blood sugar twicedaily for DM2 E11.9 3 month supply, 09/24/19 12:10:00 EST, Compound, 159, cm, 05/05/19 10:45:00 EDT, Height Start Date: 09/24/19 Status: Ordered furosemide 20 mg oral tablet See Instructions, TAKE 1 TABLET BY MOUTH TWICE DAILY AND MAY TAKE 1 EXTRA IN THE AFTERNOON PER PRIMARY CARE PROVIDER INSTRUCTIONS NEEDED., # 270 tablet, Refills 1, Instructions Replace Required Details, Route to Pharmacy Electronicall... Start Date: 06/23/21 Status: Ordered gabapentin 300 mg oral capsule 1, capsule, By Mouth, Daily at bedtime, # 90 capsule, Refills 3, Route to Pharmacy Electronically, [facility], 159, cm, 02/20/21 6:56:00 EDT, Height Start Date: 05/20/21 Status: Ordered glipiZIDE 10 mg oral tablet 1 tablet, By Mouth, 2 times a day, # 180 tablet, 1 Refills, [facility], 159, cm, 05/28/21 10:42:00 EDT, Height Start Date: 06/23/21 Status: Ordered Insulin Syringe, BD Ultra-Fine 0.5 [...] 09/25/20 15:22:00 EST, Route to Pharmacy Electronically, [facility], Partial fill upon patient request if the prescription is for a schedule II opioid d... Start Date: 09/25/20 Status: Ordered Metoprolol Succinate ER 50 mg oral tablet, extended release 1 tablet, By Mouth, Daily, # 90 tablet, 3 Refills, [facility], 159, cm, 09/04/21 13:27:00 EST, Height Start Date: 10/02/21 Status: Ordered ProAir HFA 90 mcg/inh inhalation aerosol with adapter 2, puffs, Inhalation, Every 6 hours, PRN, # 8.5 Gm, Refills 1, Tot. Refills 1, Maintenance, 02/01/19 10:58:44 EDT, Aerosol, Route to Pharmacy Electronically, [id number], [facility] Start Date: 02/01/19 Status: Ordered ReliOn/Novolin N 100 units/mL subcutaneous injection See Instructions, INJECT 18 UNITS SUBCUTANEOUSLY IN THE MORNING AND 14 IN THE EVENING, # 10 mL, 5 Refills, [facility], 159, cm, 02/20/21 6:56:00 EDT, Height Start Date: 04/05/21 Status: Ordered sildenafil 25 mg oral tablet 1 tablet, By Mouth, Daily, PRN NEEDED, PRIOR TO SEXUAL INTERCOURSE., # 2 tablet, 11 Refills, Maintenance, 01/30/21 7:57:00 EDT, [facility], 159, cm, 11/27/20 15:59:00 EDT, Height Start Date: 01/30/21 Status: Ordered terazosin 5 mg oral capsule 1, capsule, By Mouth, Daily at bedtime, # 90 capsule, Refills 1, Route to Pharmacy Electronically, [facility], 159, cm, 02/20/21 6:56:00 EDT, Height Start Date: 04/17/21 Status: Ordered Problem List Condition Effective Dates [...] u/s 2009 5colo 2012 nl, repeat 2022 [address] normal, repeat 2010 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 8Methacholine challenge test 2014 positive for asthma. 9Dr. Misa 2014 10Patient declines further PSA testing as of October 2015. Social History Social History Type Response Smoking Status Former smoker; Other : Smoking age 55. social smoker; entered on: 09/29/16 Sex Male
--- OUTSIDE RECORDS SUMMARY | 2024-05-22 07:10 | XMS_ITS | Continuity of Care Document ---
Author Organization [facility] lt Address [address] [place] [address]- Care Team Providers Care Clerk Travel Reservations Name Role Phone Antony Pappas MD Primary Care Physician Encounter [facility] [place] Date(s): 02/21/24 - 03/22/24 [facility] [address] [place] [address]- Allergies, Adverse Reactions, Alerts Substance Reaction Severity Status cephalosporins Hives Active Immunizations Given and Recorded Vaccine Date Status Refusal Reason tetanus/diphtheria/pertussis, acel(Tdap) 01/04/24 Recorded tetanus/diphtheria/pertussis, acel(Tdap) 05/17/18 Given influenza virus vaccine, inactivated 07/31/23 Olegario rded influenza virus vaccine, inactivated 06/10/22 Give n [...] influenza virus vaccine, inactivated 07/26/04 Give n pneumococcal 20-valent conjugate vaccine 12/31/22 Given [id number] 12y+ bivalent booster vax 06/10/22 Given SARS-CoV-2 (COVID-19) mRNA BNT-162b2 vac 12/29/21 Given [...] Influenza Virus Vaccine (oldterm) 06/08/06 Given Fluzone (oldterm) 05/04/18 Given pneumococcal 13-valent vaccine 11/12/14 Given Fluzone Preservative-Free (oldterm) 3 04/19/12 Giv en FluLaval (oldterm) 4 05/27/10 Given FluLaval (oldterm) 5 04/30/09 Given Zostavax (oldterm) 03/25/09 Given Pneumococcal Vaccine (oldterm) 08/23/08 Given Pneumococcal Vaccine (oldterm) 08/26/01 Given Tet/Diphth/Acel, Pertussis (oldterm) 08/23/08 Give n Influenza Inactive (IM) (oldterm) 6 05/15/08 Given tetanus-diphtheria toxoids (Td) 07/26/98 Given 1Result Comment: [facility] # 2 scheduled for 10/02/20 2Admin Note: given in clinic 3Admin Note: vis given 4Admin Note: BIOMEDICAL RADHA 5Admin Note: Biomedical Radha [facility] 6Admin Note: given in clinic Medications amLODIPine 2.5 mg oral tablet 1 tablet, By Mouth, Daily, # 90 tablet, 1 Refills, Maintenance, 01/15/24 9:48:00 EDT, [facility], 160, cm, 01/07/24 13:01:00 EDT, Height, 63, kg, 09/08/23 10:05:00 EST, Dry Weight Start Date: 01/15/24 Status: Ordered aspirin 81 mg oral delayed release tablet 81 mg, 1, tablet, By Mouth, Daily in AM, # 30 tablet, Refills 0, Maintenance, 09/07/18 15:22:30 EST Start Date: 09/07/18 Status: Ordered atorvastatin 80 mg oral tablet 1 tablet, By Mouth, Daily, # 90 tablet, 0 Refills, Maintenance, 03/02/24 16:11:00 EDT, [facility], 160, cm, 01/20/24 8:40:00 EDT, Height, 63, kg, 09/08/23 10:05:00 EST, Dry Weight Start Date: 03/02/24 Status: Ordered BD UF III SHORT PEN NEED MIS BD UF III SHORT PEN NEED MIS, See Instructions, # 30 each, 0 Refills, Maintenance, USE 1 PEN NEEDLETO INJECT INSULIN ONCE DAILY, 03/21/24 15:02:00 EDT, 160, cm, 03/10/24 8:33:00 EDT, Height, 63, kg,09/08/23 10:05:00 EST, Dry Weight Start Date: 03/21/24 Status: Ordered ergocalciferol 75378 iu oral capsule See Instructions, Take 1 capsule by mouth once a week, # 5 capsule, Refills 11, Tot. Refills 11, Maintenance, 03/10/24 8:42:00 EDT, Instructions Replace Required Details, Route to Pharmacy Electronically, [facility], 160, cm, 03/10/24 8:33:... Start Date: 03/10/24 Status: Ordered Farxiga 10 mg oral tablet 1 tablet = 10 mg, By Mouth, Daily, Replaces 5mg daily now should be 10mg daily., # 30 tablet, 5 Refills, Maintenance, 01/21/24 11:14:00 EDT, Tablet, [facility], Partial fill upon patient request if the prescription is for a schedule II opio... Start Date: 01/21/24 Status: Ordered finasteride 5 mg oral tablet 1 tablet = 5 mg, By Mouth, Daily in AM, Ordered by urology Dr. Asif (increased from 1mg dailyto 5mg daily), # 30 tablet, 0 Refills, Maintenance, 07/30/23 8:24:00 EST, Tablet, Partial fill uponpatient request if the prescription is for a schedu... Start Date: 07/30/23 Status: Ordered Freestyle Lite Test Strips See Instructions, # 180 each, Refills 3, Tot. Refills 3, Maintenance, Use to test blood sugar twicedaily for DM2 E11.9 3 month supply, 09/24/19 12:10:00 EST, Compound, 159, cm, 05/05/19 10:45:00 EDT, Height Start Date: 09/24/19 Status: Ordered gabapentin 300 mg oral capsule See Instructions, Take 1 capsule by mouth once daily at bedtime, # 90 capsule, Refills 3, Tot. Refills 3, Maintenance, 09/01/23 13:01:00 EST, Instructions Replace Required Details, Route to Pharmacy Electronically, [facility], 160, cm, ... Start Date: 09/01/23 Status: Ordered glipiZIDE 10 mg oral tablet 1 tablet, By Mouth, 2 times a day, # 180 tablet, 1 Refills, Maintenance, 12/15/23 14:06:00 EDT, [facility], 160, cm, 09/28/23 8:15:00 EST, Height, 63, kg, 09/08/23 10:05:00 EST, Dry Weight Start Date: 12/15/23 Status: Ordered Metoprolol Succinate ER 50 mg oral tablet, extended release 1.5, By Mouth, Daily, total dose Take 75 mg daily., # 45 tablet, 1 Refills, Maintenance, 03/17/24 9:14:00 EDT, [facility], 160, cm, 03/10/24 8:33:00 EDT, Height, 63, kg, 09/08/23 10:05:00 EST, Dry Weight Start Date: 03/17/24 Stop Date: 05/16/24 Status: Ordered montelukast 10 mg oral tablet 1, tablet, By Mouth, Daily, # 30 tablet, Refills 5, Maintenance, 12/22/23 14:09:00 EDT, Route to Pharmacy Electronically, [facility], 160, cm, 09/28/23 8:15:00 EST, Height, 63, kg, 09/08/23 10:05:00 EST, Dry Weight Start Date: 12/22/23 Status: Ordered Pen Scott, 31 G x 8 mm BD Ultra Fine III See Instructions, # 90 each, Refills 5, Tot. Refills 5, Maintenance, Dx: Diabetes type 2 (E11.9) Use one pen needle to inject insulin up to 3 times a day, 10/07/23 11:51:00 EDT, Supply, 160, cm, 09/28/23 8:15:00 EST, Height, 63, kg, 09/08/23 10:05:00... Start Date: 10/07/23 Status: Ordered ProAir HFA 90 mcg/inh inhalation aerosol with adapter 2, puffs, Inhalation, Every 6 hours, PRN, # 8.5 Gm, Refills 3, Tot. Refills 3, Maintenance, 02/03/24 9:24:00 EDT, Aerosol, Route to Pharmacy Electronically, [id number], [facility], 160, cm, 01/20/24 8:40:00 EDT, He... Start Date: 02/03/24 Status: Ordered torsemide 20 mg oral tablet 2 tablet, By Mouth, Daily, # 180 tablet, 1 Refills, Maintenance, 02/21/24 17:55:00 EDT, [facility], 160, cm, 01/20/24 8:40:00 EDT, Height, 63, kg, 09/08/23 10:05:00 EST, Dry Weight Start Date: 02/21/24 Status: Ordered Trelegy Ellipta 200 mcg-62.5 mcg-25 mcg/inh inhalation powder 1 puffs, Inhalation, Daily, 1 month supply, # 1 each, 5 Refills, Maintenance, 11/09/23 10:49:00 EDT, [facility], Partial fill upon patient request if the prescription is for a schedule II opioid drug., 1 puffs Inhalation Daily,Instr:1 month... Start Date: 11/09/23 Status: Ordered Tresiba FlexTouch 200 units/mL subcutaneous solution See Instructions, 76 units daily and increase 2 units every 3 days until FBS < 130 Max dose 90 units daily, # 5 each, 5 Refills, Maintenance, 09/30/23 14:38:00 EST, [facility], Partial fill upon patient request if the prescription is for a... Start Date: 09/30/23 Status: Ordered Problem List Condition Confirmation Course [...] u/s 2009 5colo 2012 nl, repeat 2022 [address] normal, repeat 2010 7Status post CABG ??1. 2016. 8Methacholine challenge test 2014 positive for asthma. 9Dr. Misa 2014 10Patient declines further PSA testing as of October 2015. 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) Start Jeronimo e:03/12/23 End Date:06/11/23 Status:Met Progression:Not Met Self Manages Postprandial Gl ucose to Less than 180 mg/dl Start Date:03/12/23 End Date:06/11/23 Status:Met Progression:Met Patient Care team information Care Team Personnel Name: Eliza Alejandre RN Position: [facility] RN Member Role: Primary Care Nurse Name: Breanna Moreno Position: [facility] Outreach Member Role: Lifetime Consulting Physician Name: Elyse LEE, Antony Ospina Position: [facility] Physician - Primary Care Member Role: PCP Address: Address: [address] [place] [address]- [place] Name: Silvia Lawrence RN Position: [facility] RN Member Role: Primary Care Nurse Name: Sahra ([employer]) Sarah Position: [facility] 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 Member Role: Family Service Assistant Name: Laura Chapin RN Position: [facility] RN Member Role: Primary Care Nurse Name: Lenora Martines NP Position: Reference Physician Member Role: Primary Care Nurse Address: Address: [place] [address]- [place] Name: Carrol Strauss RN Position: [facility] AMB Nurse Member Role: Primary Care Nurse Name: Claire Carr RN Position: [facility] RN Member Role: Primary Care Nurse Name: Rachel Robledo RN Position: [facility] RN Member Role: Primary Care Nurse Name: Richa Owens RN Position: [facility] RN Member Role: Primary Care Nurse Care Team Related Persons Name: J LUIS HOFF Address: [address] [place] [address] Name: HARVINDER FRANCISCO Address: [address] [place] [address]
--- OUTSIDE RECORDS SUMMARY | 2024-05-22 07:10 | XMS_ITS | Continuity of Care Document ---
Author Organization [facility] Frederick Ponce lt Address [address] [place] [address]- Care Team Providers Care Fish Cake Maker Name Role Phone Antony Pappas MD Primary Care Physician [phone] [place] [facility] [place]06/19 - 11/13/19 [facility] Adult [address] [place] [address]- [facility] Encounter Diagnosis Anemia of chronic disease(Discharge Diagnosis) - 11/06/19 Asthma, mild intermittent, well-controlled(Discharge Diagnosis) - 11/06/19 Background diabetic retinopathy(Discharge Diagnosis) - 11/06/19 CHF (congestive heart failure)(Discharge Diagnosis) - 11/06/19 Chronic renal disease, stage III(Discharge Diagnosis) - 11/06/19 CAD (coronary artery disease)(Discharge Diagnosis) - 11/06/19 HTN (hypertension)(Discharge Diagnosis) - 11/06/19 Hypercholesterolemia(Discharge Diagnosis) - 11/06/19 Nephropathy associated with another disease(HCC)(Discharge Diagnosis) - 11/06/19 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) - 11/06/19 Attending Physician: Antony Pappas MD Allergies, Adverse [...] Note: BIOMEDICAL RADHA 4Admin Note: Biomedical Radha [facility] 5Admin Note: given in clinic Medications albuterol [...] Refills, Maintenance, Tablet, Route to Pharmacy Electronically, [id number], [facility] Start Date: 11/18/18 Status: Ordered Breo Ellipta 100 mcg-25 mcg/inh inhalation powder 1 puffs, Inhalation, Daily, In place of QVAR 90 day supply, # 3 each, 1 Refills, Maintenance, 09/27/19 10:26:00 EST, Powder, [facility], 1 puffs Inhalation Daily,Instr:In [...] Height Start Date: 09/24/19 Status: Ordered gabapentin 100 mg oral capsule 100 mg, 1, capsule, By Mouth, Daily at bedtime, # 90 capsule, Refills 3, Tot. Refills 3, Maintenance, 11/06/19 9:06:00 EDT, Route to Pharmacy Electronically, [facility], 159, cm, 05/05/19 10:45:00 EDT, Height Start Date: 11/06/19 Status: Ordered glipiZIDE 10 mg oral tablet 1 tablet = 10 mg, By Mouth, 2 times a day, # 180 tablet, 1 Refills, Maintenance, 08/29/19 11:00:00 EST, Tablet, [facility], 159, cm, 05/05/19 10:45:00 EDT, [...] 10/31/18 14:12:28 EDT, Route to Pharmacy Electronically, [id number], [facility] Start Date: 10/31/18 Status: Ordered lisinopril 20 mg oral tablet 20 mg, 1, tablet, By Mouth, Daily, # 30 tablet, Refills 0, Tot. Refills 0, Maintenance, 11/01/18 13:59:18 EDT, Route to Pharmacy Electronically, [id number], [id number] Start Date: 11/01/18 Status: Ordered metoprolol 25 mg oral tablet 25 mg, 1, tablet, By Mouth, 2 times a day, # 180 tablet, Refills 1, Tot. Refills 1, Maintenance, 08/29/19 11:02:00 EST, Route to Pharmacy Electronically, [facility], No change from last Rx. from 02/06/19, 159, cm, 05/05/19 10:45:00 EDT, Height Start Date: 08/29/19 Status: Ordered ProAir HFA 90 mcg/inh inhalation aerosol with adapter 2, puffs, Inhalation, Every 6 hours, PRN, # 8.5 Gm, Refills 1, Tot. Refills 1, Maintenance, 02/01/19 10:58:44 EDT, Aerosol, Route to Pharmacy Electronically, [id number], [facility] Start Date: 02/01/19 Status: Ordered ReliOn/Novolin N 100 units/mL subcutaneous injection See Instructions, INJECT 18 UNITS SUBCUTANEOUSLY IN THE MORNING AND 9 IN THE EVENING, # 10 mL, 3 Refills, Maintenance, 08/17/19 13:20:00 EST, [facility], 90 day, 159, cm, 05/05/19 10:45:00EDT, Height Start Date: 08/17/19 Status: Ordered terazosin 5 mg oral capsule 5 mg, 1, capsule, By Mouth, Daily at bedtime, # 90 capsule, Refills 3, Tot. Refills 3, Maintenance,01/10/19 11:43:33 EDT, Route to Pharmacy Electronically, [id number], [facility] Start Date: 01/10/19 Status: Ordered Vitamin D 99597 iu oral capsule 50,000 International_Units, 1, capsule, By Mouth, Every week, # 5 capsule, Refills 11, Tot. [id number], Maintenance, 05/05/19 10:57:40 EDT, Route to Pharmacy Electronically, [id number] Start Date: 05/05/19 Status: Ordered [...] u/s 2009 5colo 2012 nl, repeat 2022 16747 normal, repeat 2010 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 8Methacholine challenge test 2014 positive for asthma. 9DrAngy Bynum 2014 10Patient declines further PSA testing as of October 2015. Diagnosis Diagnosis Type Effective Dates Health Status Clinical Service Informant Anemia of chronic disease Discharge Diagnosis 11/06/19 Asthma, mild intermittent, well-controlled Discharge Diagnosis 11/06/19 Background diabetic retinopathy Discharge Diagnosis 11/06/19 CHF (congestive heart failure) Discharge Diagnosis 11/06/19 Chronic renal disease, stage III Discharge Diagnosis 11/06/19 CAD (coronary artery disease) Discharge Diagnosis 11/06/19 HTN (hypertension) Discharge Diagnosis 11/06/19 Hypercholesterolemia Discharge Diagnosis 11/06/19 Nephropathy associated with another disease(HCC) Discharge Diagnosis 11/06/19 Type II diabetes mellitus with renal manifestations Discharge Diagnosis 11/06/19 Social History Social History Type Response Smoking Status Former smoker; Other : Smoking age 55. social smoker; entered on: 09/29/16 Sex
--- OUTSIDE RECORDS SUMMARY | 2024-05-22 07:10 | XMS_ITS | Continuity of Care Document ---
Author Organization [facility] Frederick Ponce lt Address [address] [place] [address]- Care Team Providers Care Plant Guide Name Role Phone Antony Pappas MD Primary Care Physician [place] [facility] [place] 10/01/22 [facility] Adult [address] [place] [address]- Encounter Diagnosis CHF (congestive heart failure)(Discharge Diagnosis) - 09/24/22 Chronic renal disease, stage III(Discharge Diagnosis) - 09/24/22 Attending Physician: Antony Pappas MD Allergies, Adverse Reactions, Alerts No Known Allergies Immunizations Given and Recorded Vaccine Date Status Refusal Reason [id number] 12y+ bivalent booster vax 06/10/22 Given influenza [...] (Td) 07/26/98 Given 1Result Comment: [facility] # 2 scheduled for 10/02/20 2Admin Note: given in clinic 3Admin Note: vis given 4Admin Note: BIOMEDICAL RADHA 5Admin Note: Biomedical Radha [facility] 6Admin Note: given in clinic Medications Advair Diskus 250 mcg-50 mcg inhalation powder 1, puffs, Inhalation, 2 times a day, Give 3 month supply, # 3 each, Refills 3, Tot. Refills 3, Maintenance, 08/27/22 10:29:00 EST, Powder, Route to Pharmacy Electronically, [id number], [facility], [facility],... Start Date: 08/27/22 Status: Ordered amLODIPine 2.5 mg oral tablet 1 tablet, By Mouth, Daily, # 90 tablet, 1 Refills, Maintenance, 07/13/22 15:46:00 EST, [facility], 160, cm, 06/10/22 10:45:00 [...] tablet, 1 Refills, Maintenance, 09/08/22 14:54:00 EST, [facility], 160, cm, 07/30/22 9:45:00 EST, Height, 65, kg, 04/28/22 7:07:00 EDT, Dry Weight Start Date: 09/08/22 Status: Ordered ergocalciferol 94295 iu oral capsule 1, capsule, By Mouth, Every week, # 5 capsule, Refills 11, Route to Pharmacy Electronically, [facility], 159, cm, 12/29/21 10:39:00 EDT, Height Start Date: 01/07/22 Status: Ordered Farxiga 5 mg oral tablet 1 tablet = 5 mg, By Mouth, Daily, If Pt cannot afford we will try to get medication assist through the company., # 30 tablet, 3 Refills, Maintenance, 09/11/22 13:16:00 EST, Tablet, [facility], Partial fill upon patient [...] 05/27/22 18:05:00 EDT, Route to Pharmacy Electronically, [facility], 160, cm, 05/01/22 8:19:00 EDT, Height, 65, kg, 04/28/22 7:07:00 EDT, Dry Weight Start Date: 05/27/22 Status: Ordered glipiZIDE 10 mg oral tablet 1 tablet, By Mouth, 2 times a day, # 180 tablet, 3 Refills, Maintenance, 09/22/22 12:28:00 EST, [facility], 160, cm, 09/09/22 14:01:00 [...] 09/25/20 15:22:00 EST, Route to Pharmacy Electronically, [facility], Partial fill upon patient request if the prescription is for a schedule II opioid d... Start Date: 09/25/20 Status: Ordered montelukast 10 mg oral tablet See Instructions, Take 1 tablet by mouth once daily, # 30 tablet, Refills 5, Tot. Refills 5, Maintenance, 06/23/22 11:11:00 EST, Instructions Replace Required Details, Route to Pharmacy Electronically, [facility], 160, cm, 06/10/22 10:45:00... Start Date: 06/23/22 Status: Ordered ProAir HFA 90 mcg/inh inhalation aerosol with adapter 2, puffs, Inhalation, Every 6 hours, PRN, # 8.5 Gm, Refills 6, Tot. Refills 6, Maintenance, 11/10/21 10:21:00 EDT, Aerosol, Route to Pharmacy Electronically, [id number], [facility], 159, cm, 11/10/21 9:57:00 EDT, H... Start Date: 11/10/21 Status: Ordered terazosin 5 mg oral capsule 1, capsule, By Mouth, Daily at bedtime, # 90 capsule, Refills 0, Maintenance, 08/05/22 12:14:00 EST, Route to Pharmacy Electronically, [facility], 160, cm, 07/30/22 9:45:00 EST, Height, 65, kg, 04/28/22 7:07:00 EDT, Dry Weight Start Date: 08/05/22 Status: Ordered torsemide 20 mg oral tablet 2 tablet = 40 mg, By Mouth, Daily, # 180 tablet, 3 Refills, Maintenance, 09/09/22 14:25:00 EST, [facility], Partial fill upon patient [...] u/s 2009 5colo 2012 nl, repeat 2022 43826 normal, repeat 2010 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 8Methacholine challenge test 2014 positive for asthma. 9DrAngy Bynum 2014 10Patient declines further PSA testing as of October 2015. Diagnosis Diagnosis Type Effective Dates Health Status Cl inical Service Informant CHF (congestive heart failure) Discharge Diagnosis 09/24/22 Chronic renal disease, stage III Discharge Diagnosis 09/24/22 Vital Signs Most recent to oldest [Reference Range]: 1 Height 160 cm (09/24/22 9:03 AM) Weight 71.7 kg (09/24/22 9:03 AM) Oxygen Saturation [94-100 %] 97 % (09/24/22 9:03 AM) Pulse Rate [55-90 bpm] 70 bpm (09/24/22 9:03 AM) Body Mass Index [18.5-24.99 kg/m2] 28.01 kg/m2 *H* (09/24/22 9:03 AM) Blood Pressure [90-138/55-84 mm Hg] 104/ 60mm Hg (09/24/22 9:03 AM) Mode of Delivery (Oxygen) Room air (09/24/22 9:03 AM) Blood pressure sites Arm, left (09/24/22 9:03 AM) Weight Obtained Via Standing scale (09/24/22 9:03 AM) Social History Social History Type Response Tobacco Other: quit age 52, smoked since age 22, 1/2 ppd. Sex Note * Anastasia Phillips: PERFORM, SIGN, VERIFY Event Display: Patient Education/Instruction Authored Date: [facility] *BMP So Frederick Pina Clinical Summary Name SÁNCHEZ HOFF Age 82 Years 1940 PCP Elyse LEE, Antony Ospina PCP Visit Date 09/24/2022 08:43:00 Additional Instructions: Scheduled Appointments?? Future Appointments ?*[facility]??Cardiology1 [address]??[place],??[place],??[address] ?Phone:??--?Fax:??-- ?Appt. Date:??10/01/2022?1:45 PM ?Scheduled Provider:??Fabricio MENDEZ, Wilda Klein ?*[facility]??Cardiology1 ?[address]??[place],??[place],??[address] ?Phone:??--?Fax:??-- ?Appt. Date:??11/13/2022?1:25 PM ?Scheduled Provider:??Sandi LEE , Pepe Ivy Follow-Up Instructions ?? With: Address: When: Elyse LEE, Antony Ospina In 3 months Diagnosis Heart failure, unspecified; Chronic kidney disease, stage 3 unspecified Medications: Please continue your medications until treatment is completed or stopped by your provider. Discuss any questions related to medications with your provider. Medications to Continue Taking That Have Changed These medications were not printed or sent to your pharmacy - dapagliflozin (Farxiga 5 mg oral tablet) 1 tab(s) Oral Daily. If Pt cannot afford we will try to get medication assist through the company.. Refills: 3. Next Dose: Medications to Continue with No [...] tab(s) Oral Daily. Refills: 1. Next Dose: Durable Medical Equipment (Freestyle Lite Test Strips) Use to test blood sugar twice daily for DM2 E11.9 3 month supply. Refills: 3. Next Dose: Durable Medical Equipment (Insulin Syringe, BD Ultra-Fine 0.5 cc 31 G x 8 mm (5/16in)) Use twice a day with NPH insulin DM2 E11.9. Refills: 11. Next Dose: Ergocalciferol (ergocalciferol 02412 iu oral capsule) 1 capsule Oral every week. Refills: 11. Next Dose: Fluticasone-Salmeterol (Advair Diskus 250 mcg-50 mcg inhalation powder) 1 puff(s) Inhalation twice a day. Give 3 month supply. Refills: 3. Next Dose: Gabapentin (gabapentin 300 mg oral capsule) 1 capsule Oral Daily at Bedtime. Refills: 3. Next Dose: GlipiZIDE (glipiZIDE 10 mg oral tablet) 1 tab(s) Oral twice a day. Refills: 3. Next Dose: Metoprolol (metoprolol 50 mg oral tablet, extended release) 1 tab(s) Oral Daily. Refills: 3. Next Dose: Montelukast (montelukast 10 mg oral tablet) Take 1 tablet by mouth once daily. Refills: 5. Next Dose: Terazosin (terazosin 5 mg oral capsule) 1 capsule Oral Daily at Bedtime. Refills: 0. Next Dose: torsemide (torsemide 20 mg oral tablet) 2 tab(s) Oral Daily for 90 Days. Refills: 3. Next Dose: Allergy Info:?? NKA Medications Given This Visit Future Orders ?Renal Panel? Order Date:10/25/22?- Complete by?11/01/22 ?B Type Natriuretic Peptide? Order Date:10/25/22?- Complete by?11/01/22 Vital Signs Height 160 cm Weight 71.7 kg BMI 28.01 kg/m2 Blood Pressure 104 mm Hg/60 mm Hg Temperature Pulse Rate 70 bpm Respiratory Rate 02 Sat Mode of Delivery 97 %/Room air You can now view a summary of your hospital visit from the comfort of your home through a free online portal called airpim. airpim is a website that allows you to securely view your medical information including discharge summary, medications and follow-up visits. ??You can alsosend a secure electronic message to your doctor???s office to request appointments, renew medications or just ask a question. You can enroll at [email or web address] or register during your next office visit. [...] primary care provider, you may find a [facility] provider by calling [facility] at [phone]. For information about the plan of care [...] Team Personnel Name: Eliza Alejandre RN Position: [facility] RN Member Role: Primary Care Nurse Name: Breanna Moreno Position: [facility] Outreach Member Role: Lifetime Consulting Physician Name: Antony Pappas MD Position: [facility] Primary Care Physician Member Role: PCP Address: Address: [address] [place] [id number]- Name: Silvia Lawrence RN Position: [facility] RN Member Role: Primary Care Nurse Name: Laura Chapin RN Position: [facility] RN Member Role: Primary Care Nurse Name: Lenora Martines NP Position: Reference Physician Member Role: Primary Care Nurse Address: Address: [address] [place] [id number]- Name: Carrol Strauss RN Position: [facility] AMB Nurse Member Role: Primary Care Nurse Name: Claire Carr RN Position: [facility] RN Member Role: Primary Care Nurse Name: Rachel Robledo RN Position: [facility] RN Member Role: Primary Care Nurse Name: Richa Owens RN Position: [facility] RN Member Role: Primary Care Nurse Care Team Related Persons Name: LUIS EDUARDO J LUIS Address: home [address] [place] [address] Name: HARVINDER FRANCISCO Address: home [address] [place] [address]
--- OUTSIDE RECORDS SUMMARY | 2024-05-22 07:10 | XMS_ITS | Continuity of Care Document ---
Author Organization [facility] Frederick Ponce lt Address [address] [place] [address]- Care Team Providers Care Critical Care Specialist Name Role Phone Antony Pappas MD Primary Care Physician [place] [facility] [place] 08/17/23 - 09/16/23 [facility] Adult [address] [place] [address]- Allergies, Adverse Reactions, Alerts Substance Reaction Severity Status cephalosporins Hives Active Immunizations Given and Recorded Vaccine Date Status Refusal Reason influenza virus vaccine, inactivated 07/31/23 Olegario rded [...] n pneumococcal 20-valent conjugate vaccine 12/31/22 Given [id number] 12y+ bivalent booster vax 06/10/22 Given SARS-CoV-2 [...] tetanus-diphtheria toxoids (Td) 07/26/98 Given 1Result Comment: [facility] # 2 scheduled for 10/02/20 2Admin Note: given in clinic 3Admin Note: vis given 4Admin Note: BIOMEDICAL RADHA 5Admin Note: Biomedical Radha [facility] 6Admin Note: given in clinic Medications amLODIPine 2.5 mg oral tablet 1 tablet, By Mouth, Daily, # 90 tablet, 1 Refills, Maintenance, 07/17/23 12:36:00 EST, [facility], 160, cm, 05/17/23 10:46:00 [...] tablet, 1 Refills, Maintenance, 08/17/23 16:12:00 EST, [facility], 160, cm, 05/17/23 10:46:00 EDT, Height, 65, kg, 04/28/22 7:07:00 EDT, Dry Weight Start Date: 08/17/23 Status: Ordered B-D UF III SHORT PEN NEED MIS B-D UF III SHORT PEN NEED MIS, See Instructions, # 30 each, 0 Refills, Maintenance, USE 1 PEN NEEDLE TO INJECT INSULIN ONCE DAILY, 09/09/23 16:02:00 EST, 160, cm, 09/08/23 11:26:00 EST, Height, 63, kg, 09/08/23 10:05:00 EST, Dry Weight Start Date: 09/09/23 Status: Ordered ergocalciferol 37435 iu oral capsule 1, capsule, By Mouth, Every week, # 5 capsule, Refills 11, Tot. Refills 11, Maintenance, 03/09/23 11:38:00 EDT, Route to Pharmacy Electronically, [facility], 160, cm, 12/31/22 9:21:00 EDT,Height, 65, kg, 04/28/22 7:07:00 EDT, Dry Weight Start Date: 03/09/23 Status: Ordered Farxiga 5 mg oral tablet 1 tablet, By Mouth, Daily, # 90 tablet, 3 Refills, Maintenance, 06/02/23 9:27:00 EST, [facility], 160, cm, 05/17/23 10:46:00 [...] Replace Required Details, Route to Pharmacy Electronically, [facility], 160, cm, ... Start Date: 09/01/23 Status: Ordered glipiZIDE 10 mg oral tablet 1 tablet, By Mouth, 2 times a day, # 180 tablet, 3 Refills, Maintenance, 09/22/22 12:28:00 EST, [facility], 160, cm, 09/09/22 14:01:00 EST, Height, 65, kg, 04/28/22 7:07:00 EDT, Dry Weight Start Date: 09/22/22 Status: Ordered Metoprolol Succinate ER 50 mg oral tablet, extended release 1 tablet, By Mouth, Daily, # 90 tablet, 3 Refills, Maintenance, 10/10/22 20:33:00 EDT, [facility], 160, cm, 09/24/22 9:03:00 EST, Height, 65, kg, 04/28/22 7:07:00 EDT, Dry Weight Start Date: 10/10/22 Status: Ordered montelukast 10 mg oral tablet 1, tablet, By Mouth, Daily, # 30 tablet, Refills 5, Tot. Refills 5, Maintenance, 06/28/23 10:39:00 EST, Route to Pharmacy Electronically, [facility], 160, cm, 05/17/23 10:46:00 EDT, Height, 65, kg, 04/28/22 7:07:00 EDT, Dry Weight Start Date: 06/28/23 Status: Ordered [place], 30 G x 8 mm BD Ultra [...] 10:21:00 EDT, Aerosol, Route to Pharmacy Electronically, [id number], [facility], 159, cm, 11/10/21 9:57:00 EDT, H... Start Date: 11/10/21 Status: Ordered torsemide 20 mg oral tablet 2 tablet, By Mouth, Daily, # 180 tablet, 1 Refills, Maintenance, 08/26/23 21:25:00 EST, [facility], 160, cm, 05/17/23 10:46:00 [...] 5 each, 5 Refills, Maintenance, 03/22/23 15:46:00 EDT, [facility], Partial fill upon [...] u/s 2009 5colo 2012 nl, repeat 2022 39738 normal, repeat 2010 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 8Methacholine challenge test 2014 positive for asthma. 9Dr. Batlan 2014 10Patient declines further PSA testing as of October 2015. Social History Social History Type Response Smoking Status Former smoker, quit more than 30 days ago entered on: 09/08/23 Sex Goals Complications of DM Avoided Start Date:05/07/23 End Date: Status:Met Progression:Not Met Pt will not have BS's < 70 (fpc) Start Jeronimo e:03/12/23 End Date:06/11/23 Status:Met Progression:Not Met Patient Care team information Care Team Personnel Name: Eliza Alejandre RN Position: [facility] RN Member Role: Primary Care Nurse Name: Breanna Moreno Position: [facility] Outreach Member Role: Lifetime Consulting Physician Name: Antony Pappas MD Position: [facility] Physician - Primary Care Member Role: PCP Address: Address: [address] [place] [address]- Name: Silvia Lawrence RN Position: [facility] RN Member Role: Primary Care Nurse Name: Sahra (Baytrisha) Sarah Position: [facility] manager welding Member Role: Opal Polisher Name: Laura Chapin RN Position: [facility] RN Member Role: Primary Care Nurse Name: Lenora Martines NP Position: Reference Physician Member Role: Primary Care Nurse Address: Address: [address] [place] [id number]- Name: Carrol Strauss RN Position: [facility] AMB Nurse Member Role: Primary Care Nurse Name: Claire Carr RN Position: S RN Member Role: Primary Care Nurse Name: Rachel Robledo RN Position: [facility] RN Member Role: Primary Care Nurse Name: Richa Owens RN Position: [facility] RN Member Role: Primary Care Nurse Care Team Related Persons Name: J LUIS HOFF Address: [address] [place] [address] Name: HARVINDER FRANCISCO Address: [address] [place] [address]
--- OUTSIDE RECORDS SUMMARY | 2024-05-22 07:10 | XMS_ITS | Continuity of Care Document ---
Author Organization [facility] Address [address] [place] [address]- Care Team Providers Care Research Center Partner Name Role Phone Antony Pappas MD Primary Care Physician Encounter [facility] Date(s): 12/19/19 - 02/23/20 [facility] [address] [place] [address]- [facility] Attending Physician: Pepe Junior MD Admitting Physician: [...] 4Admin Note: Biomedical Radha [facility] 5Admin Note: given in clinic Medications aspirin 81 mg oral delayed release tablet 81 mg, 1, tablet, By Mouth, Daily, # 30 tablet, Refills 0, Maintenance, 09/07/18 15:22:30 EST Start Date: 09/07/18 Status: Ordered atorvastatin 80 mg oral tablet 1 tablet = 80 mg, By Mouth, Daily, # 90 tablet, 1 Refills, Maintenance, 01/10/20 15:14:00 EDT, Tablet, [facility], 159, cm, 01/05/20 10:36:00 EDT, Height Start Date: 01/10/20 Status: Ordered Breo Ellipta 100 mcg-25 mcg/inh inhalation powder 1 puffs, Inhalation, Daily, In place of QVAR 90 day supply, # 3 each, 1 Refills, Maintenance, 09/27/19 10:26:00 EST, Powder, [facility], 1 puffs Inhalation Daily,Instr:In [...] 12/06/19 8:34:00 EDT, Route to Pharmacy Electronically, [facility], 159, cm, 12/06/19 7:56:00 EDT, Height Start Date: 12/06/19 Stop Date: 11/30/20 Status: Ordered glipiZIDE 10 mg oral tablet 1 tablet = 10 mg, By Mouth, 2 times a day, # 180 tablet, 1 Refills, Maintenance, 08/29/19 11:00:00 EST, Tablet, [facility], 159, cm, 05/05/19 10:45:00 [...] each, Refills 0, Tot. Refills 0, Maintenance, 01/30/20 15:07:00 EDT, Route to Pharmacy Electronically, [facility], 159, cm, 01/24/20 15:11:00 EDT, Height Start Date: 01/30/20 Status: Ordered lisinopril 20 mg oral tablet 20 mg, 1, tablet, By Mouth, Daily, # 30 tablet, Refills 0, Tot. Refills 0, Maintenance, 11/01/18 13:59:18 EDT, Route to Pharmacy Electronically, [id number], [id number] Start Date: 11/01/18 Status: Ordered metoprolol 25 mg oral tablet 25 mg, 1, tablet, By Mouth, 2 times a day, # 180 tablet, Refills 1, Tot. Refills 1, Maintenance, 08/29/19 11:02:00 EST, Route to Pharmacy Electronically, [facility], No change from last Rx. from 02/06/19, 159, cm, 05/05/19 10:45:00 EDT, Height Start Date: 08/29/19 Status: Ordered ProAir HFA 90 mcg/inh inhalation aerosol with adapter 2, puffs, Inhalation, Every 6 hours, PRN, # 8.5 Gm, Refills 1, Tot. Refills 1, Maintenance, 02/01/19 10:58:44 EDT, Aerosol, Route to Pharmacy Electronically, [id number], [facility] Start Date: 02/01/19 Status: Ordered ReliOn/Novolin N 100 units/mL subcutaneous injection See Instructions, INJECT 18 UNITS SUBCUTANEOUSLY IN THE MORNING AND 9 IN THE EVENING, # 10 mL, 2 Refills, Maintenance, 01/13/20 15:26:00 EDT, [facility], 90 day, 159, cm, 01/05/20 10:36:00EDT, Height Start Date: 01/13/20 Status: Ordered sildenafil 25 mg oral tablet See Instructions, PRN Other, 1 tablet By Mouth Daily as needed prior to sexual intercourse, # 2 tablet, 11 Refills, Maintenance, 01/24/20 15:13:00 EDT, Tablet, [facility], 159, cm, 01/24/20 15:11:00 EDT, Height Start Date: 01/24/20 Status: Ordered terazosin 5 mg oral capsule 5 mg, 1, capsule, By Mouth, Daily at bedtime, # 90 capsule, Refills 0, Tot. Refills 0, Maintenance,12/31/19 10:28:00 EDT, Route to Pharmacy Electronically, [facility], 159, cm, 12/06/19 7:56:00 EDT, Height Start Date: 12/31/19 Status: Ordered Vitamin D 69663 iu oral capsule 50,000 International_Units, 1, capsule, By Mouth, Every week, # 5 capsule, Refills 11, Tot. [id number], Maintenance, 05/05/19 10:57:40 EDT, Route to Pharmacy Electronically, [id number], [facility] Start Date: 05/05/19 Status: Ordered [...] u/s 2009 5colo 2012 nl, repeat 2022 75169 normal, repeat 2010 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 8Methacholine challenge test 2014 positive for asthma. 9Dr. Misa 2014 10Patient declines further PSA testing as of October 2015. Social History Social History Type Response Smoking Status Former smoker; Other : Smoking age 55. social smoker; entered on: 09/29/16 Sex Male
--- OUTSIDE RECORDS SUMMARY | 2024-05-22 07:10 | XMS_ITS | Continuity of Care Document ---
Author Organization [facility] Address [address] [place] [address]- Care Team Providers Care Metrologist Name Role Phone Antony Pappas MD Primary Care Physician Encounter 03/21/22 - 04/30/22 [facility] [address] [place], [place] [address] [[email or web address]] Discharge Disposition: GOALS MET Allergies, Adverse Reactions, Alerts No Known Allergies [...] tetanus-diphtheria toxoids (Td) 07/26/98 Given 1Result Comment: [facility] # 2 scheduled for 10/02/20 2Admin Note: given in clinic 3Admin Note: vis given 4Admin Note: BIOMEDICAL RADHA 5Admin Note: Biomedical Radha [facility] 6Admin Note: given in clinic Medications Advair Diskus 250 mcg-50 mcg inhalation powder 1, puffs, Inhalation, 2 times a day, Give 3 month supply, # 3 each, Refills 3, Tot. Refills 3, Maintenance, 09/26/21 10:53:00 EST, Powder, Route to Pharmacy Electronically, [id number], [facility], 159,... Start Date: 09/26/21 Status: Ordered amLODIPine 2.5 mg oral tablet 1 tablet, By Mouth, Daily, # 90 tablet, 1 Refills, [facility], 159, cm, 11/26/21 11:06:00 EDT, Height Start Date: 12/09/21 Status: Ordered aspirin 81 mg oral delayed release tablet 81 mg, 1, tablet, By Mouth, Daily, # 30 tablet, Refills 0, Maintenance, 09/07/18 15:22:30 EST Start Date: 09/07/18 Status: Ordered atorvastatin 80 mg oral tablet 1 tablet, By Mouth, Daily, # 90 tablet, 1 Refills, Maintenance, 02/14/22 11:19:00 EDT, [facility], 160, cm, 02/02/22 8:07:00 EDT, Height Start Date: 02/14/22 Status: Ordered Entresto 24 mg-26 mg oral tablet 1 tablet, By Mouth, 2 times a day, On hold 04/14/[address] Pappas and Dr[address] Junior, # 60 tablet, 3 Refills,Maintenance, 03/20/22 12:20:00 EDT, Tablet, [facility], Partial fill upon patient request if the prescription is for a schedule II opioid... Start Date: 03/20/22 Stop Date: 07/18/22 Status: Ordered ergocalciferol 28858 iu oral capsule 1, capsule, By Mouth, Every week, # 5 capsule, Refills 11, Route to Pharmacy Electronically, [facility], 159, cm, 12/29/21 10:39:00 [...] capsule, Refills 3, Route to Pharmacy Electronically, [facility], 159, cm, 02/20/21 6:56:00 EDT, Height Start Date: 05/20/21 Status: Ordered glipiZIDE 10 mg oral tablet 1 tablet, By Mouth, 2 times a day, # 180 tablet, 1 Refills, [facility], 159, cm, 11/21/21 11:16:00 [...] 09/25/20 15:22:00 EST, Route to Pharmacy Electronically, [facility], Partial fill upon patient request if the prescription is for a schedule II opioid d... Start Date: 09/25/20 Status: Ordered ProAir HFA 90 mcg/inh inhalation aerosol with adapter 2, puffs, Inhalation, Every 6 hours, PRN, # 8.5 Gm, Refills 6, Tot. Refills 6, Maintenance, 11/10/21 10:21:00 EDT, Aerosol, Route to Pharmacy Electronically, [id number], [facility], 159, cm, 11/10/21 9:57:00 EDT, H... Start Date: 11/10/21 Status: Ordered ReliOn/Novolin N 100 units/mL subcutaneous injection See Instructions, INJECT 18 UNITS SUBCUTANEOUSLY IN THE MORNING AND 9 IN THE EVENING, # 10 mL, 5 Refills, [facility], 159, cm, 09/04/21 13:27:00 EST, Height Start Date: 10/06/21 Status: Ordered Singulair 10 mg oral tablet 10 mg, 1, tablet, By Mouth, Daily, # 30 tablet, Refills 6, Tot. Refills 6, Maintenance, 11/10/21 10:21:00 EDT, Route to Pharmacy Electronically, [facility], Partial fill upon patient request if the prescription is for a schedule II opioid d... Start Date: 11/10/21 Status: Ordered terazosin 5 mg oral capsule 1, capsule, By Mouth, Daily at bedtime, # 90 capsule, Refills 1, Route to Pharmacy Electronically, [facility], 160, cm, 01/30/22 5:01:00 EDT, Height Start Date: 02/01/22 Status: Ordered torsemide 40 mg oral tablet 1 tablet = 40 mg, By Mouth, Daily, 40mg po every other day per Dr. Pappas and Dr. Junior, # 30 tablet, 1 Refills, Maintenance, 03/20/22 12:20:00 EDT, [facility], Partial fill upon patient request if the prescription is for a schedule II opioid... Start Date: 03/20/22 Stop Date: 05/19/22 Status: Ordered Problem List Condition Confirmation Course [...] u/s 2009 5colo 2012 nl, repeat 2022 90519 normal, repeat 2010 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 8Methacholine challenge test 2014 positive for asthma. 9Dr. Batlan 2014 10Patient declines further PSA testing as of October 2015. Social History Social History Type Response Tobacco Other: quit age 52, smoked since age 22, 1/2 ppd. Sex Patient Care team information Personnel Name: Antony Pappas MD Address: Address: [address] [place] [address] [place] [address]-
--- OUTSIDE RECORDS SUMMARY | 2024-05-22 07:10 | XMS_ITS | Continuity of Care Document ---
Author Organization [facility] Address [address] [place] [address]- Care Team Providers Care Airport Skilled Maintenance Supervisor Name Role Phone Antony Pappas MD Primary Care Physician [phone] Encounter [facility] Date(s): 07/20/23 - 08/19/23 [facility] Adult [address] [place] [address]- Allergies, Adverse Reactions, Alerts No Known Allergies Immunizations Given and Recorded Vaccine Date Status Refusal Reason pneumococcal 20-valent conjugate vaccine 12/31/22 Given [id number] 12y+ bivalent booster vax 06/10/22 Given influenza virus vaccine, inactivated 06/10/22 Give n influenza virus vaccine, inactivated 06/03/22 Loegario rded influenza virus vaccine, inactivated 05/23/21 Give [...] tetanus-diphtheria toxoids (Td) 07/26/98 Given 1Result Comment: [facility] # 2 scheduled for 10/02/20 2Admin Note: given in clinic 3Admin Note: vis given 4Admin Note: BIOMEDICAL RADHA 5Admin Note: Biomedical Radha [facility] 6Admin Note: given in clinic Medications amLODIPine 2.5 mg oral tablet 1 tablet, By Mouth, Daily, # 90 tablet, 1 Refills, Maintenance, 07/17/23 12:36:00 EST, [facility], 160, cm, 05/17/23 10:46:00 [...] tablet, 1 Refills, Maintenance, 08/17/23 16:12:00 EST, [facility], 160, cm, 05/17/23 10:46:00 EDT, Height, 65, kg, 04/28/22 7:07:00 EDT, Dry Weight Start Date: 08/17/23 Status: Ordered ergocalciferol 73247 iu oral capsule 1, capsule, By Mouth, Every week, # 5 capsule, Refills 11, Tot. Refills 11, Maintenance, 03/09/23 11:38:00 EDT, Route to Pharmacy Electronically, [facility], 160, cm, 12/31/22 9:21:00 EDT,Height, 65, kg, 04/28/22 7:07:00 EDT, Dry Weight Start Date: 03/09/23 Status: Ordered Farxiga 5 mg oral tablet 1 tablet, By Mouth, Daily, # 90 tablet, 3 Refills, Maintenance, 06/02/23 9:27:00 EST, [facility], 160, cm, 05/17/23 10:46:00 [...] 05/27/22 18:05:00 EDT, Route to Pharmacy Electronically, [facility], 160, cm, 05/01/22 8:19:00 EDT, Height, 65, kg, 04/28/22 7:07:00 EDT, Dry Weight Start Date: 05/27/22 Status: Ordered glipiZIDE 10 mg oral tablet 1 tablet, By Mouth, 2 times a day, # 180 tablet, 3 Refills, Maintenance, 09/22/22 12:28:00 EST, [facility], 160, cm, 09/09/22 14:01:00 EST, Height, 65, kg, 04/28/22 7:07:00 EDT, Dry Weight Start Date: 09/22/22 Status: Ordered metoprolol 50 mg oral tablet, extended release 50 mg, 1, tablet, By Mouth, Daily, # 90 tablet, Refills 3, Tot. Refills 3, Maintenance, 09/25/20 15:22:00 EST, Route to Pharmacy Electronically, [facility], Partial fill upon patient request if the prescription is for a schedule II opioid d... Start Date: 09/25/20 Status: Ordered Metoprolol Succinate ER 50 mg oral tablet, extended release 1 tablet, By Mouth, Daily, # 90 tablet, 3 Refills, Maintenance, 10/10/22 20:33:00 EDT, [facility], 160, cm, 09/24/22 9:03:00 EST, Height, 65, kg, 04/28/22 7:07:00 EDT, Dry Weight Start Date: 10/10/22 Status: Ordered montelukast 10 mg oral tablet 1, tablet, By Mouth, Daily, # 30 tablet, Refills 5, Tot. Refills 5, Maintenance, 06/28/23 10:39:00 EST, Route to Pharmacy Electronically, [facility], 160, cm, 05/17/23 10:46:00 EDT, Height, 65, kg, 04/28/22 7:07:00 EDT, Dry Weight Start Date: 06/28/23 Status: Ordered Pen [place], 30 G x 8 mm BD Ultra [...] 10:21:00 EDT, Aerosol, Route to Pharmacy Electronically, [id number], [facility], 159, cm, 11/10/21 9:57:00 [...] tablet, 3 Refills, Maintenance, 09/09/22 14:25:00 EST, [facility], Partial fill upon patient [...] u/s 2009 5colo 2012 nl, repeat 2022 91851 normal, repeat 2010 7Status post CABG ??1. [...] Pt will not have BS's < 70 (longterm) Start Jeronimo e:03/12/23 End Date:06/11/23 Status:Met Progression:Not Met Patient Care team information Care Team Personnel Name: Eliza Alejandre RN Position: [facility] RN Member Role: Primary Care Nurse Name: Breanna Moreno Position: [facility] Outreach Member Role: Lifetime Consulting Physician Name: Antony Pappas MD Position: [facility] Physician - Primary Care Member Role: PCP Address: Address: [address] [place] [address]- [place] Name: Silvia Lawrence RN Position: S RN Member Role: Primary Care Nurse Name: Sahra ([employer]) Sarah Position: [facility] data technical lead Member Role: Sql Programmer Name: Laura Chapin RN Position: S RN Member Role: Primary Care Nurse Name: Lenora Martines NP Position: Reference Physician Member Role: Primary Care Nurse Address: Address: [address] [place] [id number]- [place] Name: Carrol Strauss RN Position: [facility] AMB Nurse Member Role: Primary Care Nurse Name: Claire Carr RN Position: [facility] RN Member Role: Primary Care Nurse Name: Rachel Robledo RN Position: S RN Member Role: Primary Care Nurse Name: Richa Owens RN Position: [facility] RN Member Role: Primary Care Nurse Care Team Related Persons Name: J LUIS HOFF Address: home [address] [place] [address] Name: HARVINDER FRANCISCO Address: home [address] [place] [address]
--- OUTSIDE RECORDS SUMMARY | 2024-05-22 07:10 | XMS_ITS | Continuity of Care Document ---
Author Organization [facility] Address [address] [place] [address]- Care Team Providers Care Responder Name Role Phone Antony Pappas MD Primary Care Physician Encounter [facility] Date(s): 05/17/23 - 05/24/23 [facility] Adult [address] [place] [address]- Encounter Diagnosis Foot pain, left(Discharge Diagnosis) - 05/17/23 Attending Physician: Not on Staff, Attending MD Allergies, Adverse Reactions, Alerts No Known Allergies Immunizations Given and Recorded Vaccine Date Status Refusal Reason pneumococcal 20-valent conjugate vaccine 12/31/22 Given [id number] 12y+ bivalent booster vax 06/10/22 Given influenza [...] tetanus-diphtheria toxoids (Td) 07/26/98 Given 1Result Comment: [facility] # 2 scheduled for 10/02/20 2Admin Note: given in clinic 3Admin Note: vis given 4Admin Note: BIOMEDICAL RADHA 5Admin Note: Biomedical Radha [facility] 6Admin Note: given in clinic Medications amLODIPine 2.5 mg oral tablet 1 tablet, By Mouth, Daily, # 90 tablet, 1 Refills, Maintenance, 01/15/23 15:39:00 EDT, [facility], 160, cm, 12/31/22 9:21:00 [...] tablet, 1 Refills, Maintenance, 02/23/23 22:57:00 EDT, [facility], 160, cm, 12/31/22 9:21:00 EDT, Height, 65, kg, 04/28/22 7:07:00 EDT, Dry Weight Start Date: 02/23/23 Status: Ordered ergocalciferol 47172 iu oral capsule 1, capsule, By Mouth, Every week, # 5 capsule, Refills 11, Tot. Refills 11, Maintenance, 03/09/23 11:38:00 EDT, Route to Pharmacy Electronically, [facility], 160, cm, 12/31/22 9:21:00 EDT,Height, 65, kg, 04/28/22 7:07:00 EDT, Dry Weight Start Date: 03/09/23 Status: Ordered Farxiga 5 mg oral tablet 1 tablet, By Mouth, Daily, # 30 tablet, 2 Refills, Maintenance, 03/06/23 23:35:00 EDT, [facility], 160, cm, 12/31/22 9:21:00 [...] 05/27/22 18:05:00 EDT, Route to Pharmacy Electronically, [facility], 160, cm, 05/01/22 8:19:00 EDT, Height, 65, kg, 04/28/22 7:07:00 EDT, Dry Weight Start Date: 05/27/22 Status: Ordered glipiZIDE 10 mg oral tablet 1 tablet, By Mouth, 2 times a day, # 180 tablet, 3 Refills, Maintenance, 09/22/22 12:28:00 EST, [facility], 160, cm, 09/09/22 14:01:00 EST, Height, 65, kg, 04/28/22 7:07:00 EDT, Dry Weight Start Date: 09/22/22 Status: Ordered metoprolol 50 mg oral tablet, extended release 50 mg, 1, tablet, By Mouth, Daily, # 90 tablet, Refills 3, Tot. Refills 3, Maintenance, 09/25/20 15:22:00 EST, Route to Pharmacy Electronically, [facility], Partial fill upon patient request if the prescription is for a schedule II opioid d... Start Date: 09/25/20 Status: Ordered Metoprolol Succinate ER 50 mg oral tablet, extended release 1 tablet, By Mouth, Daily, # 90 tablet, 3 Refills, Maintenance, 10/10/22 20:33:00 EDT, [facility], 160, cm, 09/24/22 9:03:00 EST, Height, 65, kg, 04/28/22 7:07:00 EDT, Dry Weight Start Date: 10/10/22 Status: Ordered montelukast 10 mg oral tablet 1, tablet, By Mouth, Daily, # 30 tablet, Refills 5, Maintenance, 01/15/23 16:27:00 EDT, Route to Pharmacy Electronically, [facility], 160, cm, 12/31/22 9:21:00 EDT, Height, 65, kg, 04/28/22 7:07:00 EDT, Dry Weight Start Date: 01/15/23 Status: Ordered Pen [place], 30 G x 8 mm BD Ultra Fine II See Instructions, # 30 each, Refills 5, Tot. Refills 5, Maintenance, Use to inject insulin once daily (can give 90 day supply) E11.9 IDDM, 03/22/23 15:49:00 EDT, Supply, 160, cm, 12/31/22 9:21:00 EDT, Height, 65, kg, 04/28/22 7:07:00 EDT, Dry Weight Start Date: 03/22/23 Status: Ordered predniSONE 20 mg oral tablet 1 tablet = 20 mg, By Mouth, Daily, for 10 days, # 10 tablet, 0 Refills, Acute 05/28/23 11:47:00 EDT, 05/18/23 11:47:00 EDT, [facility], Partial fill upon patient request if the prescription is for a schedule II opioid drug., 160, cm, 05/17/... Start Date: 05/18/23 Stop Date: 05/28/23 Status: Ordered ProAir HFA 90 mcg/inh inhalation aerosol with adapter 2, puffs, Inhalation, Every 6 hours, PRN, # 8.5 Gm, Refills 6, Tot. Refills 6, Maintenance, 11/10/21 10:21:00 EDT, Aerosol, Route to Pharmacy Electronically, [id number], [facility], 159, cm, 11/10/21 9:57:00 EDT, H... Start Date: 11/10/21 Status: Ordered terazosin 5 mg oral capsule 1, capsule, By Mouth, Daily at bedtime, # 90 capsule, Refills 1, Maintenance, 02/02/23 10:35:00 EDT, Route to Pharmacy Electronically, [facility], 160, cm, 12/31/22 9:21:00 EDT, Height, 65, kg, 04/28/22 7:07:00 EDT, Dry Weight Start Date: 02/02/23 Status: Ordered torsemide 20 mg oral tablet 2 tablet = 40 mg, By Mouth, Daily, # 180 tablet, 3 Refills, Maintenance, 09/09/22 14:25:00 EST, [facility], Partial fill upon [...] FlexTouch 200 units/mL subcutaneous solution See Instructions, 80 units daily and increase 2 units every 3 days until FBS < 130 Max dose 90 units daily, # 5 each, 5 Refills, Maintenance, 03/22/23 15:46:00 EDT [facility], Partial fill upon patient request if the [...] u/s 2009 5colo 2012 nl, repeat 2022 22300 normal, repeat 2010 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 8Methacholine challenge test 2014 positive for asthma. 9Dr. Batlan 2014 10Patient declines further PSA testing as of October 2015. Diagnosis Diagnosis Type Effective Dates Health Status Cl inical Service Informant Foot pain, left Discharge Diagnosis 05/17/23 Vital Signs Most recent to oldest [Reference Range]: 1 Height 160 cm (05/17/23 10:46 AM) Oxygen Saturation [94-100 %] 97 % (05/17/23 10:46 AM) Pulse Rate [55-90 bpm] 68 bpm (05/17/23 10:46 AM) Blood Pressure [90-138/55-84 mm Hg] 122/ 60mm Hg (05/17/23 10:46 AM) Blood pressure sites Arm, right (05/17/23 10:46 AM) Weight Obtained Via Standing scale (05/17/23 10:46 AM) Social History Social History Type Response Tobacco Other: quit age 52, smoked since age 22, 1/2 ppd. Sex Patient Care team information Care Team Personnel Name: Eliza Alejandre RN Position: S RN Member Role: Primary Care Nurse Name: Breanna Moreno Position: [facility] Outreach Member Role: Lifetime Consulting Physician Name: Elyse LEE, Antony Ospina Position: [facility] Physician - Primary Care Member Role: PCP Address: Address: [address] [place] [address]- Name: Silvia Lawrence RN Position: [facility] RN Member Role: Primary Care Nurse Name: Sahra ([employer]) Sarah Position: [facility] child protective services specialist Member Role: Spray Gun Striper Name: Laura Chapin RN Position: [facility] RN Member Role: Primary Care Nurse Name: Lenora Martines NP Position: Reference Physician Member Role: Primary Care Nurse Address: Address: [address] [place] [address]- Name: Carrol Strauss RN Position: [facility] AMB Nurse Member Role: Primary Care Nurse Name: Claire Carr RN Position: [facility] RN Member Role: Primary Care Nurse Name: Rachel Robledo RN Position: [facility] RN Member Role: Primary Care Nurse Name: Richa Owens RN Position: [facility] RN Member Role: Primary Care Nurse Care Team Related Persons Name: J LUIS HOFF Address: [address] [place] [address] Name: HARVINDER FRANCISCO Address: home [address] [place] [address]
--- OUTSIDE RECORDS SUMMARY | 2024-05-22 07:10 | XMS_ITS | Continuity of Care Document ---
Author Organization [facility] Frederick Ponce lt Address [address] [place] [address]- Care Team Providers Care Director Sales Support Name Role Phone Antony Pappas MD Primary Care Physician Encounter [facility] Date(s): 03/02/24 - 04/01/24 [facility] Adult [address] [place] [address]- Allergies, Adverse Reactions, Alerts Substance Reaction Severity [...] n pneumococcal 20-valent conjugate vaccine 12/31/22 Given [id number] 12y+ bivalent booster vax 06/10/22 Given SARS-CoV-2 [...] (Td) 07/26/98 Given 1Result Comment: [facility] # 2 scheduled for 10/02/20 2Admin Note: given in clinic 3Admin Note: vis given 4Admin Note: BIOMEDICAL RADHA 5Admin Note: Biomedical Radha [facility] 6Admin Note: given in clinic Medications amLODIPine 2.5 mg oral tablet 1 tablet, By Mouth, Daily, # 90 tablet, 1 Refills, Maintenance, 01/15/24 9:48:00 EDT, [facility], 160, cm, 01/07/24 13:01:00 EDT, [...] tablet, 0 Refills, Maintenance, 03/02/24 16:11:00 EDT, [facility], 160, cm, 01/20/24 8:40:00 EDT, [...] Weight Start Date: 03/21/24 Status: Ordered ergocalciferol 84880 iu oral capsule See Instructions, Take 1 capsule by mouth once a week, # 5 capsule, Refills 11, Tot. Refills 11, Maintenance, 03/10/24 8:42:00 EDT, Instructions Replace Required Details, Route to Pharmacy Electronically, [facility], 160, cm, 03/10/24 8:33:... Start Date: 03/10/24 Status: Ordered Farxiga 10 mg oral tablet 1 tablet = 10 mg, By Mouth, Daily, Replaces 5mg daily now should be 10mg daily., # 30 tablet, 5 Refills, Maintenance, 01/21/24 11:14:00 EDT, Tablet, [facility], Partial fill upon patient [...] Replace Required Details, Route to Pharmacy Electronically, [facility], 160, cm, ... Start Date: 09/01/23 Status: Ordered glipiZIDE 10 mg oral tablet 1 tablet, By Mouth, 2 times a day, # 180 tablet, 1 Refills, Maintenance, 12/15/23 14:06:00 EDT, [facility], 160, cm, 09/28/23 8:15:00 EST, Height, 63, kg, 09/08/23 10:05:00 EST, Dry Weight Start Date: 12/15/23 Status: Ordered Metoprolol Succinate ER 50 mg oral tablet, extended release 1.5, By Mouth, Daily, total dose Take 75 mg daily., # 45 tablet, 1 Refills, Maintenance, 03/17/24 9:14:00 EDT, [facility], 160, cm, 03/10/24 8:33:00 EDT, Height, 63, kg, 09/08/23 10:05:00 EST, Dry Weight Start Date: 03/17/24 Stop Date: 05/16/24 Status: Ordered montelukast 10 mg oral tablet 1, tablet, By Mouth, Daily, # 30 tablet, Refills 5, Maintenance, 12/22/23 14:09:00 EDT, Route to Pharmacy Electronically, [facility], 160, cm, 09/28/23 8:15:00 EST, Height, 63, kg, 09/08/23 10:05:00 EST, Dry Weight Start Date: 12/22/23 Status: Ordered Pen [place], 31 G x 8 mm BD Ultra [...] 9:24:00 EDT, Aerosol, Route to Pharmacy Electronically, [id number], [facility], 160, cm, 01/20/24 8:40:00 EDT, He... Start Date: 02/03/24 Status: Ordered torsemide 20 mg oral tablet 2 tablet, By Mouth, Daily, # 180 tablet, 1 Refills, Maintenance, 02/21/24 17:55:00 EDT, [facility], 160, cm, 01/20/24 8:40:00 EDT, Height, 63, kg, 09/08/23 10:05:00 EST, Dry Weight Start Date: 02/21/24 Status: Ordered Trelegy Ellipta 200 mcg-62.5 mcg-25 mcg/inh inhalation powder 1 puffs, Inhalation, Daily, 1 month supply, # 1 each, 5 Refills, Maintenance, 11/09/23 10:49:00 EDT, [facility], Partial fill upon patient request if the prescription is for a schedule II opioid drug., 1 puffs Inhalation Daily,Instr:1 month... Start Date: 11/09/23 Status: Ordered Tresiba FlexTouch 200 units/mL subcutaneous solution See Instructions, 76 units daily and increase 2 units every 3 days until FBS < 130 Max dose 90 units daily, # 5 each, 11 Refills, Maintenance, 03/28/24 10:56:00 EDT, [facility], Partialfill upon patient request if the prescription is for... Start Date: 03/28/24 Status: Ordered Problem List Condition Confirmation Course [...] u/s 2009 5colo 2012 nl, repeat 2022 75808 normal, repeat 2010 7Status post CABG ??1. 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) Start Jeronimo e:03/12/23 End Date:06/11/23 Status:Met Progression:Not Met Self Manages Postprandial Gl ucose to Less than 180 mg/dl Start Date:03/12/23 End Date:06/11/23 Status:Met Progression:Met Patient Care team information Care Team Personnel Name: Eliza Alejandre RN Position: [facility] RN Member Role: Primary Care Nurse Name: Breanna Moreno Position: [facility] Outreach Member Role: Lifetime Consulting Physician Name: Elyse LEE, Antony Ospina Position: [facility] Physician - Primary Care Member Role: PCP Address: Address: [address] [place] [address]- [place] Name: Silvia Lawrence RN Position: [facility] RN Member Role: Primary Care Nurse Name: Sahra ([employer]) Sarah Position: [facility] fitter up Member Role: [employer] Architect Name: Laura Chapin RN Position: [facility] RN Member Role: Primary Care Nurse Name: Lenora Martines NP Position: Reference Physician Member Role: Primary Care Nurse Address: Address: [place] [address]- [place] Name: Carrol Strauss RN Position: [facility] AMB Nurse Member Role: Primary Care Nurse Name: Claire Carr RN Position: [facility] RN Member Role: Primary Care Nurse Name: Rachel oRbledo RN Position: [facility] RN Member Role: Primary Care Nurse Name: Richa Owens RN Position: [facility] RN Member Role: Primary Care Nurse Care Team Related Persons Name: J LUIS HOFF Address: [address] [place] [address] Name: HARVINDER FRANCISCO Address: home [address] [place] [address]
--- OUTSIDE RECORDS SUMMARY | 2024-05-22 07:10 | XMS_ITS | Continuity of Care Document ---
Author Organization [facility] Ponce lt Address [address] [place] [address]- Care Team Providers Care Chemical Technician Name Role Phone Antony Pappas MD Primary Care Physician [place] [facility] [place]21 - 02/27/21 [facility] Adult [address] [place] [address]- Encounter Diagnosis Aortic stenosis(Discharge Diagnosis) - 02/20/21 Asthma, mild persistent(Discharge Diagnosis) - 02/20/21 Background diabetic retinopathy(Discharge Diagnosis) - 02/20/21 CAD (coronary artery disease)(Discharge Diagnosis) - 02/20/21 CHF (congestive heart failure)(Discharge Diagnosis) - 02/20/21 Diabetic neuropathy(Discharge Diagnosis) - 02/20/21 HTN (hypertension)(Discharge Diagnosis) - 02/20/21 Psoriatic arthritis(Discharge Diagnosis) - 02/20/21 RA (rheumatoid arthritis)(Discharge Diagnosis) - 02/20/21 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 # 2 scheduled for 10/02/20 2Admin Note: given in clinic 3Admin Note: vis given 4Admin Note: BIOMEDICAL RADHA 5Admin Note: Biomedical Radha [facility] 6Admin Note: given in clinic Medications amLODIPine 2.5 mg oral tablet 2.5 mg, 1, tablet, By Mouth, Daily, # 30 tablet, Refills 11, Tot. Refills 11, Maintenance, 06/07/2011:56:00 EST, Route to Pharmacy Electronically, [facility], Partial fill upon patient request, 159, cm, 06/07/20 11:13:00 EST, Height Start Date: 06/07/20 Status: Ordered aspirin 81 mg oral delayed release tablet 81 mg, 1, tablet, By Mouth, Daily, # 30 tablet, Refills 0, Maintenance, 09/07/18 15:22:30 EST Start Date: 09/07/18 Status: Ordered atorvastatin 80 mg oral tablet 1 tablet, By Mouth, Daily, # 90 tablet, 1 Refills, Maintenance, 02/11/21 15:14:00 EDT, [facility], 159, cm, 11/27/20 15:59:00 EDT, Height Start Date: 02/11/21 Status: Ordered Breo Ellipta 100 mcg-25 mcg/inh inhalation powder 1 puffs, Inhalation, Daily, In place of QVAR 90 day supply, # 3 each, 1 Refills, Maintenance, 10/25/20 7:59:00 EDT, Powder, [facility], 1 puffs Inhalation Daily,Instr:In place of QVAR; 90 day supply, 159, cm, 10/10/20 12:46:00 EDT, Height Start Date: 10/25/20 Status: Ordered ergocalciferol 00433 iu oral capsule 1, capsule, By Mouth, Every week, # 5 capsule, Refills 12, Tot. Refills 0, Maintenance, 01/01/21 14:53:00 EDT, Route to Pharmacy Electronically, [facility], 159, cm, 11/27/20 15:59:00 [...] 12/03/20 16:08:00 EDT, Route to Pharmacy Electronically, [facility], 159, cm, 11/27/20 15:59:00 EDT, Height Start Date: 12/03/20 Stop Date: 03/03/21 Status: Ordered glipiZIDE 10 mg oral tablet 1 tablet = 10 mg, By Mouth, 2 times a day, # 180 tablet, 0 Refills, Maintenance, 12/03/20 14:10:00 EDT, Tablet, [facility], 159, cm, 11/27/20 15:59:00 [...] 10/10/20 13:15:00 EDT, Route to Pharmacy Electronically, [facility], 159, cm, 10/10/20 12:46:00 EDT, [...] 09/25/20 15:22:00 EST, Route to Pharmacy Electronically, [facility], Partial fill upon patient request if the prescription is for a schedule II opioid d... Start Date: 09/25/20 Status: Ordered ProAir HFA 90 mcg/inh inhalation aerosol with adapter 2, puffs, Inhalation, Every 6 hours, PRN, # 8.5 Gm, Refills 1, Tot. Refills 1, Maintenance, 02/01/19 10:58:44 EDT, Aerosol, Route to Pharmacy Electronically, [id number], [facility] Start Date: 02/01/19 Status: Ordered ReliOn/Novolin N 100 units/mL subcutaneous injection See Instructions, INJECT 18 UNITS SUBCUTANEOUSLY IN THE MORNING AND 9 UNITS IN THE EVENING, # 10 mL, 2 Refills, 12/17/20 7:54:00 EDT, [facility], 159, cm, 11/27/20 15:59:00 EDT, Height Start Date: 12/17/20 Status: Ordered sildenafil 25 mg oral tablet 1 tablet, By Mouth, Daily, PRN NEEDED, PRIOR TO SEXUAL INTERCOURSE., # 2 tablet, 11 Refills, Maintenance, 01/30/21 7:57:00 EDT, [facility], 159, cm, 11/27/20 15:59:00 EDT, Height Start Date: 01/30/21 Status: Ordered terazosin 5 mg oral capsule 1, capsule, By Mouth, Daily at bedtime, # 90 capsule, Refills 0, Tot. Refills 0, Maintenance, 01/22/21 14:12:00 EDT, Route to Pharmacy Electronically, [facility], 159, cm, 11/27/20 15:59:00 EDT, Height Start Date: 01/22/21 Status: Ordered Problem List Condition Effective Dates [...] manifestations(Confirmed) Active 1Status post aortic valve replacement 2016. 2by echo 2009 mild 3elevated, prostate biopsy negative 4less than 50 % b/l by u/s 2009 5colo 2012 nl, repeat 2022 85189 normal, repeat 2010 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 8Methacholine challenge test 2014 positive for asthma. 9Dr. Misa 2014 10Patient declines further PSA testing as of October 2015. Diagnosis Diagnosis Type Effective Dates Health Status Clinical Service Informant Aortic stenosis Discharge Diagnosis 02/20/21 Asthma, mild persistent Discharge Diagnosis 02/20/21 Background diabetic retinopathy Discharge Diagnosis 02/20/21 CAD (coronary artery disease) Discharge Diagnosis 02/20/21 CHF (congestive heart failure) Discharge Diagnosis 02/20/21 Diabetic neuropathy Discharge Diagnosis 02/20/21 HTN (hypertension) Discharge Diagnosis 02/20/21 Psoriatic arthritis Discharge Diagnosis 02/20/21 RA (rheumatoid arthritis) Discharge Diagnosis 02/20/21 Type II diabetes mellitus with renal manifestations Discharge Diagnosis 02/20/21 Chronic renal disease, stage III Discharge Diagnosis 02/20/21 Vital Signs Most recent to oldest [Reference Range]: 1 Height 159 cm (02/20/21 6:56 AM) Weight 73.1 kg (02/20/21 6:56 AM) Oxygen Saturation [94-100 %] 97 % (02/20/21 6:56 AM) Pulse Rate [55-90 bpm] 67 bpm (02/20/21 6:56 AM) Body Mass Index [18.5-24.99] 28.91 *H* (02/20/21 6:56 AM) Blood Pressure [90-138/55-84 mm Hg] 138/ 68mm Hg (02/20/21 6:56 AM) Mode of Delivery (Oxygen) Room air (02/20/21 6:56 AM) Blood pressure sites Arm, left (02/20/21 6:56 AM) Weight Obtained Via Standing scale (02/20/21 6:56 AM) Social History Social History Type Response Smoking Status Former smoker; Other : Smoking age 55. social smoker; entered on: 09/29/16 Sex Male
--- OUTSIDE RECORDS SUMMARY | 2024-05-22 07:11 | XMS_ITS | Continuity of Care Document ---
Author Organization [facility] Ponce lt Address [address] [place] [address]- Care Team Providers Care Signaler Name Role Phone Antony Pappas MD Primary Care Physician [phone] [place] [facility] [place]23 [place] 09/08/23 [facility] Adult [address] [place] [address]- Encounter Diagnosis Anemia of chronic disease(Discharge Diagnosis) - 09/01/23 Aortic stenosis(Discharge Diagnosis) - 09/01/23 Background diabetic retinopathy(Discharge Diagnosis) - 09/01/23 CHF (congestive heart failure)(Discharge Diagnosis) - 09/01/23 Chronic renal disease, stage III(Discharge Diagnosis) - 09/01/23 Diabetic neuropathy(Discharge Diagnosis) - 09/01/23 Psoriatic arthritis(Discharge Diagnosis) - 09/01/23 RA (rheumatoid arthritis)(Discharge Diagnosis) - 09/01/23 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 # 2 scheduled for 10/02/20 2Admin Note: given in clinic 3Admin Note: vis given 4Admin Note: BIOMEDICAL RADHA 5Admin Note: Biomedical Radha [facility] 6Admin Note: given in clinic Medications amLODIPine 2.5 mg oral tablet 1 tablet, By Mouth, Daily, # 90 tablet, 1 Refills, Maintenance, 07/17/23 12:36:00 EST, [facility], 160, cm, 05/17/23 10:46:00 [...] tablet, 1 Refills, Maintenance, 08/17/23 16:12:00 EST, [facility], 160, cm, 05/17/23 10:46:00 EDT, Height, 65, kg, 04/28/22 7:07:00 EDT, Dry Weight Start Date: 08/17/23 Status: Ordered ergocalciferol 46820 iu oral capsule 1, capsule, By Mouth, Every week, # 5 capsule, Refills 11, Tot. Refills 11, Maintenance, 03/09/23 11:38:00 EDT, Route to Pharmacy Electronically, [facility], 160, cm, 12/31/22 9:21:00 EDT,Height, 65, kg, 04/28/22 7:07:00 EDT, Dry Weight Start Date: 03/09/23 Status: Ordered Farxiga 5 mg oral tablet 1 tablet, By Mouth, Daily, # 90 tablet, 3 Refills, Maintenance, 06/02/23 9:27:00 EST, [facility], 160, cm, 05/17/23 10:46:00 [...] Replace Required Details, Route to Pharmacy Electronically, [facility], 160, cm, ... Start Date: 09/01/23 Status: Ordered glipiZIDE 10 mg oral tablet 1 tablet, By Mouth, 2 times a day, # 180 tablet, 3 Refills, Maintenance, 09/22/22 12:28:00 EST, [facility], 160, cm, 09/09/22 14:01:00 EST, Height, 65, kg, 04/28/22 7:07:00 EDT, Dry Weight Start Date: 09/22/22 Status: Ordered glipiZIDE 10 mg oral tablet 1 tablet = 10 mg, By Mouth, 2 times a day, 0 Refills, Maintenance, 09/08/23 15:44:00 EST, Partial fill upon patient request if the prescription is for a schedule II opioid drug. Start Date: 09/08/23 Status: Ordered Metoprolol Succinate ER 50 mg oral tablet, extended release 1 tablet, By Mouth, Daily, # 90 tablet, 3 Refills, Maintenance, 10/10/22 20:33:00 EDT, [facility], 160, cm, 09/24/22 9:03:00 EST, Height, 65, kg, 04/28/22 7:07:00 EDT, Dry Weight Start Date: 10/10/22 Status: Ordered montelukast 10 mg oral tablet 1, tablet, By Mouth, Daily, # 30 tablet, Refills 5, Tot. Refills 5, Maintenance, 06/28/23 10:39:00 EST, Route to Pharmacy Electronically, [facility], 160, cm, 05/17/23 10:46:00 EDT, Height, 65, kg, 04/28/22 7:07:00 EDT, Dry Weight Start Date: 06/28/23 Status: Ordered Pen [place], 30 G x 8 mm BD Ultra [...] 10:21:00 EDT, Aerosol, Route to Pharmacy Electronically, [id number], [facility], 159, cm, 11/10/21 9:57:00 EDT, H... 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 8Methacholine challenge test 2014 positive for asthma. 9Dr. Batlan 2014 10Patient declines further PSA testing as of October 2015. Diagnosis Diagnosis Type Effective Dates Health Status Clinical Service Informant Anemia of chronic disease Discharge Diagnosis 09/01/23 Aortic stenosis Discharge Diagnosis 09/01/23 Background diabetic retinopathy Discharge Diagnosis 09/01/23 CHF (congestive heart failure) Discharge Diagnosis 09/01/23 Chronic renal disease, stage III Discharge Diagnosis 09/01/23 Diabetic neuropathy Discharge Diagnosis 09/01/23 Psoriatic arthritis Discharge Diagnosis 09/01/23 RA (rheumatoid arthritis) Discharge Diagnosis 09/01/23 Type II diabetes mellitus with renal manifestations Discharge Diagnosis 09/01/23 BPH (benign prostatic hypertrophy) Discharge Diagnosis 09/01/23 Vital Signs Most recent to oldest [Reference Range]: 1 Height 160 cm (09/01/23 12:43 PM) Weight 63.5 kg (09/01/23 12:43 PM) Oxygen Saturation [94-100 %] 96 % (09/01/23 12:43 PM) Pulse Rate [55-90 bpm] 69 bpm (09/01/23 12:43 PM) Body Mass Index [18.5-24.99 kg/m2] 24.8 kg/m2 (09/01/23 12:43 PM) Blood Pressure [90-138/55-84 mm Hg] 138/ 64mm Hg (09/01/23 12:43 PM) Mode of Delivery (Oxygen) Room air (09/01/23 12:43 PM) Blood pressure sites Arm, left (09/01/23 12:43 PM) Weight Obtained Via Standing scale (09/01/23 12:43 PM) Social History Social History Type Response Smoking Status Former smoker, quit more than 30 days ago entered on: 09/08/23 Sex Goals Complications of DM Avoided Start Date:05/07/23 End Date: Status:Met Progression:Not Met Pt will not have BS's < 70 (long-term) Start Jeronimo e:03/12/23 End Date:06/11/23 Status:Met Progression:Not Met Patient Care team information Care Team Personnel Name: Eliza Alejandre RN Position: [facility] RN Member Role: Primary Care Nurse Name: Breanna Moreno Position: [facility] Outreach Member Role: Lifetime Consulting Physician Name: Antony Pappas MD Position: [facility] Physician - Primary Care Member Role: PCP Address: Address: [address] [place] [address]- [place] Name: Silvia Lawrence RN Position: [facility] RN Member Role: Primary Care Nurse Name: Sahra (Hina) Sarah Position: [facility] electrochemist Member Role: Store Loss Prevention Manager Name: Laura Chapin RN Position: [facility] RN Member Role: Primary Care Nurse Name: Lenora Martines NP Position: Reference Physician Member Role: Primary Care Nurse Address: Address: [address] [place] [address]- [place] Name: Carrol Strauss RN Position: [facility] Nurse Member Role: Primary Care Nurse Name: Claire Carr RN Position: S RN Member Role: Primary Care Nurse Name: Rachel Robledo RN Position: [facility] RN Member Role: Primary Care Nurse Name: Richa Owens RN Position: [facility] RN Member Role: Primary Care Nurse Care Team Related Persons Name: J LUIS HOFF Address: [address] [place] [address] Name: HARVINDER FRANCISCO Address: home [address] [place] [address]
--- OUTSIDE RECORDS SUMMARY | 2024-05-22 07:11 | XMS_ITS | Continuity of Care Document ---
Author Organization [facility] Address [address] [place] [address]- Care Team Providers Care Hardwood Floor Installation Helper Name Role Phone Antony Pappas MD Primary Care Physician [phone] [place] [facility]10[place]21 - 11/17/21 [facility] Adult [address] [place] [address]- Encounter Diagnosis Allergic rhinitis(Discharge Diagnosis) - 11/10/21 Attending Physician: Not on Staff, Attending MD [...] (Td) 07/26/98 Given 1Result Comment: [facility] # 2 scheduled for 10/02/20 2Admin Note: given in clinic 3Admin Note: vis given 4Admin Note: BIOMEDICAL RADHA 5Admin Note: Biomedical Radha [place] [facility] [place] 6Admin Note: given in clinic Medications Advair Diskus 250 mcg-50 mcg inhalation powder 1, puffs, Inhalation, 2 times a day, Give 3 month supply, # 3 each, Refills 3, Tot. Refills 3, Maintenance, 09/26/21 10:53:00 EST, Powder, Route to Pharmacy Electronically, [id number], [facility], 159,... Start Date: 09/26/21 Status: Ordered amLODIPine 2.5 mg oral tablet 1 tablet, By Mouth, Daily, # 30 tablet, 5 Refills, [facility], 159, cm, 05/28/21 10:42:00 EDT, Height Start Date: 06/13/21 Status: Ordered aspirin 81 mg oral delayed release tablet 81 mg, 1, tablet, By Mouth, Daily, # 30 tablet, Refills 0, Maintenance, 09/07/18 15:22:30 EST Start Date: 09/07/18 Status: Ordered atorvastatin 80 mg oral tablet 1 tablet, By Mouth, Daily, # 90 tablet, 1 Refills, [facility], 159, cm, 05/28/21 10:42:00 EDT, Height Start Date: 08/19/21 Status: Ordered ergocalciferol 25965 iu oral capsule 1, capsule, By Mouth, Every week, # 5 capsule, Refills 12, Tot. Refills 0, Maintenance, 01/01/21 14:53:00 EDT, Route to Pharmacy Electronically, [facility], 159, cm, 11/27/20 15:59:00 EDT,Height [...] capsule, Refills 3, Route to Pharmacy Electronically, [facility], 159, cm, 02/20/21 6:56:00 EDT, Height Start Date: 05/20/21 Status: Ordered glipiZIDE 10 mg oral tablet 1 tablet, By Mouth, 2 times a day, # 180 tablet, 1 Refills, [facility], 159, cm, 05/28/21 [...] Mouth, Daily, # 90 tablet, 3 Refills, [facility], 159, cm, 09/04/21 13:27:00 EST, Height Start Date: 10/02/21 Status: Ordered ProAir HFA 90 mcg/inh inhalation aerosol with adapter 2, puffs, Inhalation, Every 6 hours, PRN, # 8.5 Gm, Refills 6, Tot. Refills 6, Maintenance, 11/10/21 10:21:00 EDT, Aerosol, Route to Pharmacy Electronically, [id number], [facility], 159, cm, 11/10/21 9:57:00 EDT, H... Start Date: 11/10/21 Status: Ordered ReliOn/Novolin N 100 units/mL subcutaneous injection See Instructions, INJECT 18 UNITS SUBCUTANEOUSLY IN THE MORNING AND 9 IN THE EVENING, # 10 mL, 5 Refills, [facility], 159, cm, 09/04/21 13:27:00 EST, Height Start Date: 10/06/21 Status: Ordered sildenafil 25 mg oral tablet 1 tablet, By Mouth, Daily, PRN NEEDED, PRIOR TO SEXUAL INTERCOURSE., # 2 tablet, 11 Refills, Maintenance, 01/30/21 7:57:00 EDT, [facility], 159, cm, 11/27/20 15:59:00 EDT, Height Start Date: 01/30/21 Status: Ordered Singulair 10 mg oral tablet 10 mg, 1, tablet, By Mouth, Daily, # 30 tablet, Refills 6, Tot. Refills 6, Maintenance, 11/10/21 10:21:00 EDT, Route to Pharmacy Electronically, [facility], Partial fill upon patient request if the prescription is for a schedule II opioid d... 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 8Methacholine challenge test 2014 positive for asthma. 9Dr. Misa 2014 10Patient declines further PSA testing as of October 2015. Diagnosis Diagnosis Type Effective Dates Health Status Cl inical Service Informant Allergic rhinitis Discharge Diagnosis 11/10/21 Vital Signs Most recent to oldest [Reference Range]: 1 Height 159 cm (11/10/21 9:57 AM) Weight 70.6 kg (11/10/21 9:57 AM) Oxygen Saturation [94-100 %] 98 % (11/10/21 9:57 AM) Pulse Rate [55-90 bpm] 72 bpm (11/10/21 9:57 AM) Body Mass Index [18.5-24.99] 27.93 *H* (11/10/21 9:57 AM) Blood Pressure [90-138/55-84 mm Hg] 130/ 60mm Hg (11/10/21 9:57 AM) Respiratory Rate [16-30 br/min] 22 br/mi n (11/10/21 9:57 AM) Mode of Delivery (Oxygen) Room air (11/10/21 9:57 AM) Blood pressure sites Arm, right (11/10/21 9:57 AM) Weight Obtained Via Standing scale (11/10/21 9:57 AM) Social History Social History Type Response Smoking Status Former smoker; Other : Smoking age 55. social smoker; entered on: 09/29/16 Sex Male
--- OUTSIDE RECORDS SUMMARY | 2024-05-22 07:11 | XMS_ITS | Continuity of Care Document ---
Author Organization [facility] Address [address] [place] [address]- Care Team Providers Care Sheet Writer Name Role Phone Antony Pappas MD Primary Care Physician En[place] [facility] [place](s[place] 01/21/22 - 02/20/22 [facility] [address] [place] [address]- Attending Physician: Wero Gayle Admitting Physician: Wero Gayle Referring Physician: Wero Gayle Allergies, Adverse Reactions, Alerts No Known Allergies [...] tetanus-diphtheria toxoids (Td) 07/26/98 Given 1Result Comment: [facility] # 2 scheduled for 10/02/20 2Admin Note: given in clinic 3Admin Note: vis given 4Admin Note: BIOMEDICAL RADHA 5Admin Note: Biomedical Radha of [facility] [place] 6Admin Note: given in clinic Medications Advair Diskus 250 mcg-50 mcg inhalation powder 1, puffs, Inhalation, 2 times a day, Give 3 month supply, # 3 each, Refills 3, Tot. Refills 3, Maintenance, 09/26/21 10:53:00 EST, Powder, Route to Pharmacy Electronically, [id number], [facility], 159,... Start Date: 09/26/21 [...] Height Start Date: 02/14/22 Status: Ordered ergocalciferol 24993 iu oral capsule 1, capsule, By Mouth, [...] Details, Route to Pharmacy Electronicall... 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 8Methacholine challenge test 2014 positive for asthma. 9Dr. Batlan 2014 10Patient declines further PSA testing as of October 2015. Social History Social History Type Response Tobacco Other: quit age 52, smoked since age 22, 1/2 ppd. Sex
--- OUTSIDE RECORDS SUMMARY | 2024-05-22 07:11 | XMS_ITS | Continuity of Care Document ---
Author Organization [facility] ter Address [address] [place] [address]- Care Team Providers Care Wet Silk Hanger Name Role Phone Elyse LEE, Antony Ospina Primary Care Physician En[place] [facility] [place](s): 11/17/21 - 11/18/[address] [address]- Discharge Disposition: A-D/C Home Attending Physician: Chantelle Desir MD Admitting Physician: Farnaz Mahan MD Referring Physician: Not on Staff, Referring [...] tetanus-diphtheria toxoids (Td) 07/26/98 Given 1Result Comment: [facility] # 2 scheduled for 10/02/20 2Admin Note: given in clinic 3Admin Note: vis given 4Admin Note: BIOMEDICAL RADHA 5Admin Note: Biomedical Radha of [facility] [place] 6Admin Note: given in clinic Medications Advair Diskus 250 mcg-50 mcg inhalation powder 1, puffs, Inhalation, 2 times a day, Give 3 month supply, # 3 each, Refills 3, Tot. Refills 3, Maintenance, 09/26/21 10:53:00 EST, Powder, Route to Pharmacy Electronically, [id number], Pharmacy, 159,... Start Date: 09/26/21 Status: Ordered amLODIPine 2.5 mg oral tablet 1 tablet, By Mouth, Daily, # 30 tablet, 5 Refills, [facility], 159, cm, 05/28/21 10:42:00 EDT, Height Start Date: 06/13/21 Status: Ordered amLODIPine 5 mg oral tablet 2.5 mg, Tablet, By Mouth, 11/18/21 9:00:00 EDT Start Date: 11/18/21 Stop Date: 11/18/21 Status: Completed aspirin 81 mg oral delayed release tablet 81 mg, 1, tablet, By Mouth, Daily, # 30 tablet, Refills 0, Maintenance, 09/07/18 15:22:30 EST Start Date: 09/07/18 Status: Ordered atorvastatin 80 mg oral tablet 1 tablet, By Mouth, Daily, # 90 tablet, 1 Refills, [facility], 159, cm, 05/28/21 10:42:00 EDT, Height Start Date: 08/19/21 Status: Ordered ergocalciferol 32629 iu oral capsule 1, capsule, By Mouth, Every week, # 5 capsule, Refills 12, Tot. Refills 0, Maintenance, 01/01/21 14:53:00 EDT, Route to Pharmacy Electronically, [facility], 159, cm, 11/27/20 15:59:00 [...] capsule, Refills 3, Route to Pharmacy Electronically, [facility], 159, cm, 02/20/21 6:56:00 EDT, Height Start Date: 05/20/21 Status: Ordered glipiZIDE 10 mg oral tablet 1 tablet, By Mouth, 2 times a day, # 180 tablet, 1 Refills, [facility], 159, cm, 05/28/21 10:42:00 [...] release 50 mg, XL Tablet, By Mouth, 11/18/21 9:00:00 EDT Start Date: 11/18/21 Stop Date: 11/18/21 Status: Completed metoprolol 50 mg oral tablet, extended release 50 mg, 1, tablet, By Mouth, Daily, # 90 tablet, Refills 3, Tot. Refills 3, Maintenance, 09/25/20 15:22:00 EST, Route to Pharmacy Electronically, [facility], Partial fill upon patient request if the prescription is for a schedule II opioid d... Start Date: 09/25/20 Status: Ordered Metoprolol Succinate ER 50 mg oral tablet, extended release 1 tablet, By Mouth, Daily, # 90 tablet, 3 Refills, [facility], 159, cm, 09/04/21 13:27:00 EST, Height Start Date: 10/02/21 Status: Ordered ProAir HFA 90 mcg/inh inhalation aerosol with adapter 2, puffs, Inhalation, Every 6 hours, PRN, # 8.5 Gm, Refills 6, Tot. Refills 6, Maintenance, 11/10/21 10:21:00 EDT, Aerosol, Route to Pharmacy Electronically, [id number], [facility], 159, cm, 11/10/21 9:57:00 EDT, H... Start Date: 11/10/21 Status: Ordered ReliOn/Novolin N 100 units/mL subcutaneous injection See Instructions, INJECT 18 UNITS SUBCUTANEOUSLY IN THE MORNING AND 9 IN THE EVENING, # 10 mL, 5 Refills, [facility], 159, cm, 09/04/21 13:27:00 EST, Height Start Date: 10/06/21 Status: Ordered sildenafil 25 mg oral tablet 1 tablet, By Mouth, Daily, PRN NEEDED, PRIOR TO SEXUAL INTERCOURSE., # 2 tablet, 11 Refills, Maintenance, 01/30/21 7:57:00 EDT, [facility], 159, cm, 11/27/20 15:59:00 EDT, Height Start Date: 01/30/21 Status: Ordered Singulair 10 mg oral tablet 10 mg, 1, tablet, By Mouth, Daily, # 30 tablet, Refills 6, Tot. Refills 6, Maintenance, 11/10/21 10:21:00 EDT, Route to Pharmacy Electronically, [facility], Partial fill upon patient request if the prescription is for a schedule II opioid d... Start Date: 11/10/21 Status: Ordered terazosin 5 mg oral capsule 1, capsule, By Mouth, Daily at bedtime, # 90 capsule, Refills 0, Route to Pharmacy Electronically, [facility], 159, cm, 09/04/21 13:27:00 [...] u/s 2009 5colo 2012 nl, repeat 2022 94298 normal, repeat 2010 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 8Methacholine challenge test 2014 positive for asthma. 9Dr. Batroseanna 2014 10Patient declines further PSA testing as of October 2015. Results Radiology Reports * Exam Date Time Procedure Performing Provider Status 11/17/21 8:58 AM Chest 2 Views Frontal and Lat Laverne Mackey; Auth (Verified) Notes: (Chest 2 Views Frontal and Lat) Reason For Exam: Chest Pain;Other: RESULT: Chest 2 Views Frontal and Lat Chest 2 Views Frontal and Lat REASON: Shortness of breath; Clinical Question(s): CHF COMPARISON: Chest radiograph 11/11/2021 FINDINGS: LINES AND TUBES: None. LUNGS AND PLEURA: Clear lungs. Normal pulmonary vascularity. Stable thickening of the interlobar fissures. No pleural effusion. No pneumothorax. HEART, MEDIASTINUM AND PREET: Heart is normal in size. Cardiac valve prosthesis in place. Normal upper mediastinal and hilar contour. BONES AND SOFT TISSUES: No acute abnormality. Median sternotomy wires noted. IMPRESSION: No evidence of acute abnormality. I have personally reviewed the images and I agree with this report. WSN: [id number] Ordering Physician: Emanuel Su Dictated By: Edwar Howell DO Dictated Date/Time: 11/17/21 9:09 am Reviewed By: Casa Ulloa MD Signed By: Casa Ulloa MD Signed Date/Time: 11/17/21 9:14 am Transcribed By: RUBINA Transcribed Date/Time: 11/17/21 9:02 am Vital Signs Most recent to oldest [Reference Range]: 1 2 3 Oxygen Saturation [94-100 %] 96 % (11/18/21 7:46 AM) 95 % (11/18/21 4:51 AM) 96 % (11/17/21 11:46 PM) Pulse Rate [55-90 bpm] 71 bpm (11/18/21 8:20 AM) 75 bpm (11/18/21 7:46 AM) 69 bpm (11/18/21 4:51 AM) Blood Pressure [90-138/55-84 mm Hg] 144/75mm Hg *H* (11/18/21 8:20 AM) 144/75mm Hg *H* (11/18/21 8:20 AM) 144/74mm Hg *H* (11/18/21 7:46 AM) Respiratory Rate [16-30 br/min] 16 br/min (11/18/21 7:46 AM) 18 br/min (11/18/21 4:51 AM) 18 br/min (11/17/21 11:46 PM) Temperature [96.8-100.4 DegF] 98 DegF (11/17/21 10:58 PM) 97.8 DegF (11/17/21 10:18 PM) 98 DegF (11/17/21 7:09 PM) Mode of Delivery (Oxygen) Room air (11/18/21 4:51 AM) Room air (11/17/21 11:46 PM) Room air (11/17/21 10:58 PM) Blood pressure sites Arm, right (11/18/21 4:51 AM) Arm, right (11/17/21 11:46 PM) Arm, left (11/17/21 10:58 PM) Temperature Route Oral (11/17/21 10:58 PM) Oral (11/17/21 10:18 PM) Oral (11/17/21 7:09 PM) Social History Social History Type Response Smoking Status Former smoker; Other : Smoking age 55. social smoker; entered on: 09/29/16 Sex Male
--- OUTSIDE RECORDS SUMMARY | 2024-05-22 07:11 | XMS_ITS | Continuity of Care Document ---
Author Organization [facility] Address [address] [place] [address]- Care Team Providers Care Energy Consultant Name Role Phone Antony Pappas MD Primary Care Physician [phone] Encounter [facility] [place] Date(s): 04/02/22 - 04/09/22 [facility] [address] [place] [address]- Encounter Diagnosis Anemia of chronic disease(Discharge Diagnosis) - 04/02/22 Chronic renal disease, stage III(Discharge Diagnosis) - 04/02/22 CHF (congestive heart failure)(Discharge Diagnosis) - 04/02/22 Diabetic neuropathy(Discharge Diagnosis) - 04/02/22 Attending Physician: Antony Pappas MD Allergies, Adverse [...] tetanus-diphtheria toxoids (Td) 07/26/98 Given 1Result Comment: [facility] # 2 scheduled for 10/02/20 2Admin Note: given in clinic 3Admin Note: vis given 4Admin Note: BIOMEDICAL RADHA 5Admin Note: Biomedical Radha [facility] 6Admin Note: given in clinic Medications Advair Diskus 250 mcg-50 mcg inhalation powder 1, puffs, Inhalation, 2 times a day, Give 3 month supply, # 3 each, Refills 3, Tot. Refills 3, Maintenance, 09/26/21 10:53:00 EST, Powder, Route to Pharmacy Electronically, [id number], [facility], 159,... Start Date: 09/26/21 Status: Ordered amLODIPine 2.5 mg oral tablet 1 tablet, By Mouth, Daily, # 90 tablet, 1 Refills, [facility], 159, cm, 11/26/21 11:06:00 EDT, Height Start Date: 12/09/21 Status: Ordered aspirin 81 mg oral delayed release tablet 81 mg, 1, tablet, By Mouth, Daily, # 30 tablet, Refills 0, Maintenance, 09/07/18 15:22:30 EST Start Date: 09/07/18 Status: Ordered atorvastatin 80 mg oral tablet 1 tablet, By Mouth, Daily, # 90 tablet, 1 Refills, Maintenance, 02/14/22 11:19:00 EDT, [facility], 160, cm, 02/02/22 8:07:00 EDT, [...] 3 Refills, Maintenance, 03/20/22 12:20:00 EDT, Tablet, [facility], Partial fill upon patient request if the prescription is for a schedule II opioid drug., 1 tablet By Mouth 2 times a day,x... Start Date: 03/20/22 Stop Date: 07/18/22 Status: Ordered ergocalciferol 00663 iu oral capsule 1, capsule, By Mouth, Every week, # 5 capsule, Refills 11, Route to Pharmacy Electronically, [facility], 159, cm, 12/29/21 10:39:00 EDT, [...] capsule, Refills 3, Route to Pharmacy Electronically, [facility], 159, cm, 02/20/21 6:56:00 EDT, Height Start Date: 05/20/21 Status: Ordered glipiZIDE 10 mg oral tablet 1 tablet, By Mouth, 2 times a day, # 180 tablet, 1 Refills, [facility], 159, cm, 11/21/21 11:16:00 EDT, [...] 09/25/20 15:22:00 EST, Route to Pharmacy Electronically, [facility], Partial fill upon patient request if the prescription is for a schedule II opioid d... Start Date: 09/25/20 Status: Ordered ProAir HFA 90 mcg/inh inhalation aerosol with adapter 2, puffs, Inhalation, Every 6 hours, PRN, # 8.5 Gm, Refills 6, Tot. Refills 6, Maintenance, 11/10/21 10:21:00 EDT, Aerosol, Route to Pharmacy Electronically, [id number], [facility], 159, cm, 11/10/21 9:57:00 EDT, H... Start Date: 11/10/21 Status: Ordered ReliOn/Novolin N 100 units/mL subcutaneous injection See Instructions, INJECT 18 UNITS SUBCUTANEOUSLY IN THE MORNING AND 9 IN THE EVENING, # 10 mL, 5 Refills, [facility], 159, cm, 09/04/21 13:27:00 EST, Height Start Date: 10/06/21 Status: Ordered Singulair 10 mg oral tablet 10 mg, 1, tablet, By Mouth, Daily, # 30 tablet, Refills 6, Tot. Refills 6, Maintenance, 11/10/21 10:21:00 EDT, Route to Pharmacy Electronically, [facility], Partial fill upon patient request if the prescription is for a schedule II opioid d... Start Date: 11/10/21 Status: Ordered terazosin 5 mg oral capsule 1, capsule, By Mouth, Daily at bedtime, # 90 capsule, Refills 1, Route to Pharmacy Electronically, [facility], 160, cm, 01/30/22 5:01:00 EDT, Height Start Date: 02/01/22 Status: Ordered torsemide 40 mg oral tablet 1 tablet = 40 mg, By Mouth, Daily, # 30 tablet, 1 Refills, Maintenance, 03/20/22 12:20:00 EDT, [facility], Partial fill upon patient request if the prescription is for a schedule II opioid drug., 160, cm, 03/20/22 8:22:00 EDT, Height, 82... 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 2016. 8Methacholine challenge test 2014 positive for asthma. 9Dr. Batlan 2014 10Patient declines further PSA testing as of October 2015. Diagnosis Diagnosis Type Effective Dates Health Status Clinical Service Informant Anemia of chronic disease Discharge Diagnosis 04/02/22 Chronic renal disease, stage III Discharge Diagnosis 04/02/22 CHF (congestive heart failure) Discharge Diagnosis 04/02/22 Diabetic neuropathy Discharge Diagnosis 04/02/22 Vital Signs Most recent to oldest [Reference Range]: 1 Height 160 cm (04/02/22 10:14 AM) Weight 66.1 kg (04/02/22 10:14 AM) Oxygen Saturation [94-100 %] 96 % (04/02/22 10:14 AM) Pulse Rate [55-90 bpm] 75 bpm (04/02/22 10:14 AM) Body Mass Index [18.5-24.99] 25.82 *H* (04/02/22 10:14 AM) Blood Pressure [90-138/55-84 mm Hg] 122/ 60mm Hg (04/02/22 10:14 AM) Temperature [96.8-100.4 DegF] 98.1 DegF (04/02/22 10:14 AM) Mode of Delivery (Oxygen) Room air (04/02/22 10:14 AM) Blood pressure sites Arm, left (04/02/22 10:14 AM) Temperature Route Oral (04/02/22 10:14 AM) Weight Obtained Via Standing scale (04/02/22 10:14 AM) Social History Social History Type Response Tobacco Other: quit age 52, smoked since age 22, 1/2 ppd. Sex Care Team Personnel Name: Elyse LEE, Antony Ospina Address: [address] [place] [address] [place] [address]
--- OUTSIDE RECORDS SUMMARY | 2024-05-22 07:11 | XMS_ITS | Continuity of Care Document ---
Author Organization [facility] Ponce lt Address [address] [place] [address]- Care Team Providers Care [employer] Name Role Phone Antony Pappas MD Primary Care Physician [phone] Encounter [facility] Date(s): 01/15/24 - 02/14/24 [facility] Adult [address] [place] [address]- Allergies, Adverse Reactions, Alerts Substance Reaction Severity [...] n pneumococcal 20-valent conjugate vaccine 12/31/22 Given [id number] 12y+ bivalent booster vax 06/10/22 Given SARS-CoV-2 [...] tetanus-diphtheria toxoids (Td) 07/26/98 Given 1Result Comment: [facility] # 2 scheduled for 10/02/20 2Admin Note: given in clinic 3Admin Note: vis given 4Admin Note: BIOMEDICAL RADHA 5Admin Note: Biomedical Radha [facility] 6Admin Note: given in clinic Medications amLODIPine 2.5 mg oral tablet 1 tablet, By Mouth, Daily, # 90 tablet, 1 Refills, Maintenance, 01/15/24 9:48:00 EDT, [facility], 160, cm, 01/07/24 13:01:00 EDT, [...] tablet, 1 Refills, Maintenance, 08/17/23 16:12:00 EST, [facility], 160, cm, 05/17/23 10:46:00 EDT, Height, 65, kg, 04/28/22 7:07:00 EDT, Dry Weight Start Date: 08/17/23 Status: Ordered Azithromycin 5 Day Dose Pack 250 mg oral tablet 1 pack/packet, By Mouth, Once, as directed on package labeling, # 6 tablet, 0 Refills, Soft Stop, 01/20/24 9:03:00 EDT, Tablet, [facility], Partial fill upon patient request if the prescription is for a schedule II opioid drug., 160, cm, 06... Start Date: 01/20/24 Status: Ordered ergocalciferol 23879 iu oral capsule 1, capsule, By Mouth, Every week, # 5 capsule, Refills 11, Tot. Refills 11, Maintenance, 03/09/23 11:38:00 EDT, Route to Pharmacy Electronically, [facility], 160, cm, 12/31/22 9:21:00 EDT,Height, 65, kg, 04/28/22 7:07:00 EDT, Dry Weight Start Date: 03/09/23 Status: Ordered Farxiga 10 mg oral tablet 1 tablet = 10 mg, By Mouth, Daily, Replaces 5mg daily now should be 10mg daily., # 30 tablet, 5 Refills, Maintenance, 01/21/24 11:14:00 EDT, Tablet, [facility], Partial fill upon patient [...] Replace Required Details, Route to Pharmacy Electronically, [facility], 160, cm, ... Start Date: 09/01/23 Status: Ordered glipiZIDE 10 mg oral tablet 1 tablet, By Mouth, 2 times a day, # 180 tablet, 1 Refills, Maintenance, 12/15/23 14:06:00 EDT, [facility], 160, cm, 09/28/23 8:15:00 EST, Height, 63, kg, 09/08/23 10:05:00 EST, Dry Weight Start Date: 12/15/23 Status: Ordered Metoprolol Succinate ER 50 mg oral tablet, extended release 1.5, By Mouth, Daily, total dose Take 75 mg daily., # 45 tablet, 0 Refills, Maintenance, 01/04/24 13:51:00 EDT, [facility], 160, cm, 09/28/23 8:15:00 EST, Height, 63, kg, 09/08/23 10:05:00EST, Dry Weight Start Date: 01/04/24 Stop Date: 02/03/24 Status: Ordered montelukast 10 mg oral tablet 1, tablet, By Mouth, Daily, # 30 tablet, Refills 5, Maintenance, 12/22/23 14:09:00 EDT, Route to Pharmacy Electronically, [facility], 160, cm, 09/28/23 8:15:00 EST, Height, 63, kg, 09/08/23 10:05:00 EST, Dry Weight Start Date: 12/22/23 Status: Ordered Pen [place], 31 G x 8 mm BD Ultra [...] 9:24:00 EDT, Aerosol, Route to Pharmacy Electronically, [id number], [facility], 160, cm, 01/20/24 8:40:00 EDT, He... Start Date: 02/03/24 Status: Ordered torsemide 20 mg oral tablet 2 tablet, By Mouth, Daily, # 180 tablet, 1 Refills, Maintenance, 08/26/23 21:25:00 EST, [facility], 160, cm, 05/17/23 10:46:00 EDT, Height, 65, kg, 04/28/22 7:07:00 EDT, Dry Weight Start Date: 08/26/23 Status: Ordered Trelegy Ellipta 200 mcg-62.5 mcg-25 mcg/inh inhalation powder 1 puffs, Inhalation, Daily, 1 month supply, # 1 each, 5 Refills, Maintenance, 11/09/23 10:49:00 EDT, [facility], Partial fill upon patient [...] each, 5 Refills, Maintenance, 09/30/23 14:38:00 EST, [facility], Partial fill upon patient [...] u/s 2009 5colo 2012 nl, repeat 2022 33133 normal, repeat 2010 7Status post CABG ??1. 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) Start Jeronimo e:03/12/23 End Date:06/11/23 Status:Met Progression:Not Met Self Manages Postprandial Gl ucose to Less than 180 mg/dl Start Date:03/12/23 End Date:06/11/23 Status:Met Progression:Met Patient Care team information Care Team Personnel Name: Eliza Alejandre RN Position: [facility] RN Member Role: Primary Care Nurse Name: Breanna Moreno Position: [facility] Outreach Member Role: Lifetime Consulting Physician Name: Antony Pappas MD Position: [facility] Physician - Primary Care Member Role: PCP Address: Address: [address] [place] [address]- [place] Name: Silvia Lawrence RN Position: [facility] RN Member Role: Primary Care Nurse Name: Sahra (Baytrisha) Sarah Position: [facility] toe laster Member Role: Inventory Control Coordinator Name: Laura Chapin RN Position: [facility] RN Member Role: Primary Care Nurse Name: Lenora Martines NP Position: Reference Physician Member Role: Primary Care Nurse Address: Address: [address] [place] [address]- [place] Name: Carrol Strauss RN Position: [facility] AMB Nurse Member Role: Primary Care Nurse Name: Claire Carr RN Position: [facility] RN Member Role: Primary Care Nurse Name: Rachel Robledo RN Position: [facility] RN Member Role: Primary Care Nurse Name: Richa Owens RN Position: [facility] RN Member Role: Primary Care Nurse Care Team Related Persons Name: J LUIS HOFF Address: home [address] [place] [address] Name: HARVINDER FRANCISCO Address: home [address] [place] [address]
--- OUTSIDE RECORDS SUMMARY | 2024-05-22 07:11 | XMS_ITS | Continuity of Care Document ---
Author Organization [facility] Frederick Ponce lt Address [address] [place] [address]- Care Team Providers Care Training And Development Head Name Role Phone Antony Pappas MD Primary Care Physician [phone] Encounter [facility] Date(s): 01/30/20 - 02/06/20 [facility] [place] Adult [address] [place] [address]- [facility] Attending Physician: Eliza Dickinson NP Referring Physician: Antony Pappas MD Allergies, [...] Hospital 5Admin Note: given in clinic Medications aspirin 81 mg oral delayed release tablet 81 mg, 1, tablet, By Mouth, Daily, # 30 tablet, Refills 0, Maintenance, 09/07/18 15:22:30 EST Start Date: 09/07/18 Status: Ordered atorvastatin 80 mg oral tablet 1 tablet = 80 mg, By Mouth, Daily, # 90 tablet, 1 Refills, Maintenance, 01/10/20 15:14:00 EDT, Tablet, [facility], 159, cm, 01/05/20 10:36:00 EDT, Height Start Date: 01/10/20 Status: Ordered Breo Ellipta 100 mcg-25 mcg/inh inhalation powder 1 puffs, Inhalation, Daily, In place of QVAR 90 day supply, # 3 each, 1 Refills, Maintenance, 09/27/19 10:26:00 EST, Powder, [facility], 1 puffs Inhalation Daily,Instr:In [...] 12/06/19 8:34:00 EDT, Route to Pharmacy Electronically, [facility], 159, cm, 12/06/19 7:56:00 EDT, Height Start Date: 12/06/19 Stop Date: 11/30/20 Status: Ordered glipiZIDE 10 mg oral tablet 1 tablet = 10 mg, By Mouth, 2 times a day, # 180 tablet, 1 Refills, Maintenance, 08/29/19 11:00:00 EST, Tablet, [facility], 159, cm, 05/05/19 10:45:00 [...] 01/30/20 15:07:00 EDT, Route to Pharmacy Electronically, [facility], 159, cm, 01/24/20 15:11:00 EDT, Height Start Date: 01/30/20 Status: Ordered lisinopril 20 mg oral tablet 20 mg, 1, tablet, By Mouth, Daily, # 30 tablet, Refills 0, Tot. Refills 0, Maintenance, 11/01/18 13:59:18 EDT, Route to Pharmacy Electronically, [id number], [facility] [id number] Start Date: 11/01/18 Status: Ordered metoprolol 25 mg oral tablet 25 mg, 1, tablet, By Mouth, 2 times a day, # 180 tablet, Refills 1, Tot. Refills 1, Maintenance, 08/29/19 11:02:00 EST, Route to Pharmacy Electronically, [facility], No change from last Rx. from 02/06/19, 159, cm, 05/05/19 10:45:00 EDT, Height Start Date: 08/29/19 Status: Ordered ProAir HFA 90 mcg/inh inhalation aerosol with adapter 2, puffs, Inhalation, Every 6 hours, PRN, # 8.5 Gm, Refills 1, Tot. Refills 1, Maintenance, 02/01/19 10:58:44 EDT, Aerosol, Route to Pharmacy Electronically, [id number], [facility] Start Date: 02/01/19 Status: Ordered ReliOn/Novolin N 100 units/mL subcutaneous injection See Instructions, INJECT 18 UNITS SUBCUTANEOUSLY IN THE MORNING AND 9 IN THE EVENING, # 10 mL, 2 Refills, Maintenance, 01/13/20 15:26:00 EDT, [facility], 90 day, 159, cm, 01/05/20 10:36:00EDT, Height Start Date: 01/13/20 Status: Ordered sildenafil 25 mg oral tablet See Instructions, PRN Other, 1 tablet By Mouth Daily as needed prior to sexual intercourse, # 2 tablet, 11 Refills, Maintenance, 01/24/20 15:13:00 EDT, Tablet, [facility], 159, cm, 01/24/20 15:11:00 EDT, Height Start Date: 01/24/20 Status: Ordered terazosin 5 mg oral capsule 5 mg, 1, capsule, By Mouth, Daily at bedtime, # 90 capsule, Refills 0, Tot. Refills 0, Maintenance,12/31/19 10:28:00 EDT, Route to Pharmacy Electronically, [facility], 159, cm, 12/06/19 7:56:00 EDT, Height Start Date: 12/31/19 Status: Ordered Vitamin D 39594 iu oral capsule 50,000 International_Units, 1, capsule, By Mouth, Every week, # 5 capsule, Refills 11, Tot. 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 2016. 8Methacholine challenge test 2014 positive for asthma. 9Dr. Misa 2014 10Patient declines further PSA testing as of October 2015. Vital Signs Most recent to oldest [Reference Range]: 1 Height 159 cm (01/30/20 3:17 PM) Social History Social History Type Response Smoking Status Former smoker; Other : Smoking age 55. social smoker; entered on: 09/29/16 Sex Male
--- OUTSIDE RECORDS SUMMARY | 2024-05-22 07:11 | XMS_ITS | Continuity of Care Document ---
Author Organization [facility] ter Address [address] [place] [address]- Care Team Providers Care Manager Outreach Name Role Phone Elyse LEE, Antony Ospina Primary Care Physician [phone] [place] [facility] Date(s): 10/21/20 - 11/30/[address] [address] Attending Physician: Pepe Junior MD Admitting Physician: Pepe Junior MD Referring Physician: Pepe Junior MD Allergies, Adverse Reactions, Alerts Substance Reaction [...] tetanus-diphtheria toxoids (Td) 07/26/98 Given 1Result Comment: [facility] # 2 scheduled for 10/02/20 2Admin Note: given in clinic 3Admin Note: vis given 4Admin Note: BIOMEDICAL RADHA 5Admin Note: Biomedical Radha [facility] 6Admin Note: given in clinic Medications amLODIPine 2.5 mg oral tablet 2.5 mg, 1, tablet, By Mouth, Daily, # 30 tablet, Refills 11, Tot. Refills 11, Maintenance, 06/07/2011:56:00 EST, Route to Pharmacy Electronically, [facility], Partial fill upon patient request, [...] 1 Refills, Maintenance, 08/01/20 9:55:00 EST, Tablet, [facility], 159, cm, 07/10/20 11:05:00 EST, Height Start Date: 08/01/20 Status: Ordered Breo Ellipta 100 mcg-25 mcg/inh inhalation powder 1 puffs, Inhalation, Daily, In place of QVAR 90 day supply, # 3 each, 1 Refills, Maintenance, 10/25/20 7:59:00 EDT, Powder, [facility], 1 puffs Inhalation Daily,Instr:In place of QVAR; 90 day supply, 159, cm, 10/10/20 12:46:00 EDT, Height Start Date: 10/25/20 Status: Ordered ergocalciferol 92393 iu oral capsule 50,000 International_Units, 1, capsule, By Mouth, Every week, # 5 capsule, Refills 5, Tot. Refills 5, Maintenance, 05/29/20 13:54:00 EST, Route to Pharmacy Electronically, [facility], 159,cm, 05/24/20 8:57:00 EDT, Height [...] 12/06/19 8:34:00 EDT, Route to Pharmacy Electronically, [facility], 159, cm, 12/06/19 7:56:00 EDT, Height Start Date: 12/06/19 Stop Date: 11/30/20 Status: Ordered glipiZIDE 10 mg oral tablet 1 tablet = 10 mg, By Mouth, 2 times a day, # 180 tablet, 0 Refills, Maintenance, 08/27/20 8:20:00 EST, Tablet, [facility], 159, cm, 07/10/20 11:05:00 EST, Height Start Date: 08/27/20 Status: Ordered Insulin Syringe, BD Ultra-Fine 0.5 cc 31 G x 8 mm (12/08in) See Instructions, # 60 each, Refills 11, [...] 10/10/20 13:15:00 EDT, Route to Pharmacy Electronically, [facility], 159, cm, 10/10/20 12:46:00 EDT, [...] 10:58:44 EDT, Aerosol, Route to Pharmacy Electronically, [id number], [facility] Start Date: 02/01/19 Status: Ordered ReliOn/Novolin N 100 units/mL subcutaneous injection See Instructions, INJECT 18 UNITS SUBCUTANEOUSLY IN THE MORNING AND 9 UNITS IN THE EVENING, # 10 mL, 1 Refills, 10/08/20 13:42:00 EDT, [facility], 159, cm, 07/10/20 11:05:00 EST, Height Start Date: 10/08/20 Status: Ordered sildenafil 25 mg oral tablet See Instructions, PRN Other, 1 tablet By Mouth Daily as needed prior to sexual intercourse, # 2 tablet, 11 Refills, Maintenance, 06/25/20 15:44:00 EST, Tablet, [facility], 159, cm, 06/25/20 9:48:00 EST, Height [...] u/s 2009 5colo 2012 nl, repeat 2022 14824 normal, repeat 2010 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 8Methacholine challenge test 2014 positive for asthma. 9Dr. Misa 2014 10Patient declines further PSA testing as of October 2015. Social History Social History Type Response Smoking Status Former smoker; Other : Smoking age 55. social smoker; entered on: 09/29/16 Sex Male
--- OUTSIDE RECORDS SUMMARY | 2024-05-22 07:11 | XMS_ITS | Continuity of Care Document ---
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 Name Role Phone Antony Pappas MD Primary Care Physician [phone] Encounter [facility] Date(s): 01/20/24 - 02/19/24 [facility] Adult [address] [place] [address]- Attending Physician: Admtr, Ar8 Allergies, Adverse Reactions, [...] n pneumococcal 20-valent conjugate vaccine 12/31/22 Given [id number] 12y+ bivalent booster vax 06/10/22 Given SARS-CoV-2 [...] tetanus-diphtheria toxoids (Td) 07/26/98 Given 1Result Comment: [facility] # 2 scheduled for 10/02/20 2Admin Note: given in clinic 3Admin Note: vis given 4Admin Note: BIOMEDICAL RADHA 5Admin Note: Biomedical Radha [facility] 6Admin Note: given in clinic Medications amLODIPine 2.5 mg oral tablet 1 tablet, By Mouth, Daily, # 90 tablet, 1 Refills, Maintenance, 01/15/24 9:48:00 EDT, [facility], 160, cm, 01/07/24 13:01:00 [...] tablet, 1 Refills, Maintenance, 08/17/23 16:12:00 EST, [facility], 160, cm, 05/17/23 10:46:00 EDT, Height, 65, kg, 04/28/22 7:07:00 EDT, Dry Weight Start Date: 08/17/23 Status: Ordered Azithromycin 5 Day Dose Pack 250 mg oral tablet 1 pack/packet, By Mouth, Once, as directed on package labeling, # 6 tablet, 0 Refills, Soft Stop, 01/20/24 9:03:00 EDT, Tablet, [facility], Partial fill upon patient request if the prescription is for a schedule II opioid drug., 160, cm, 06... Start Date: 01/20/24 Status: Ordered ergocalciferol 01519 iu oral capsule 1, capsule, By Mouth, Every week, # 5 capsule, Refills 11, Tot. Refills 11, Maintenance, 03/09/23 11:38:00 EDT, Route to Pharmacy Electronically, [facility], 160, cm, 12/31/22 9:21:00 EDT,Height, 65, kg, 04/28/22 7:07:00 EDT, Dry Weight Start Date: 03/09/23 Status: Ordered Farxiga 10 mg oral tablet 1 tablet = 10 mg, By Mouth, Daily, Replaces 5mg daily now should be 10mg daily., # 30 tablet, 5 Refills, Maintenance, 01/21/24 11:14:00 EDT, Tablet, [facility], Partial fill upon [...] Replace Required Details, Route to Pharmacy Electronically, [facility], 160, cm, ... Start Date: 09/01/23 Status: Ordered glipiZIDE 10 mg oral tablet 1 tablet, By Mouth, 2 times a day, # 180 tablet, 1 Refills, Maintenance, 12/15/23 14:06:00 EDT, [facility], 160, cm, 09/28/23 8:15:00 EST, Height, 63, kg, 09/08/23 10:05:00 EST, Dry Weight Start Date: 12/15/23 Status: Ordered Metoprolol Succinate ER 50 mg oral tablet, extended release 1.5, By Mouth, Daily, total dose Take 75 mg daily., # 45 tablet, 0 Refills, Maintenance, 01/04/24 13:51:00 EDT, [facility], 160, cm, 09/28/23 8:15:00 EST, Height, 63, kg, 09/08/23 10:05:00EST, Dry Weight Start Date: 01/04/24 Stop Date: 02/03/24 Status: Ordered montelukast 10 mg oral tablet 1, tablet, By Mouth, Daily, # 30 tablet, Refills 5, Maintenance, 12/22/23 14:09:00 EDT, Route to Pharmacy Electronically, [facility], 160, cm, 09/28/23 8:15:00 EST, Height, 63, kg, 09/08/23 10:05:00 EST, Dry Weight Start Date: 12/22/23 Status: Ordered Pen [place], 31 G x 8 mm BD Ultra [...] 9:24:00 EDT, Aerosol, Route to Pharmacy Electronically, [id number], [facility], 160, cm, 01/20/24 8:40:00 EDT, He... Start Date: 02/03/24 Status: Ordered torsemide 20 mg oral tablet 2 tablet, By Mouth, Daily, # 180 tablet, 1 Refills, Maintenance, 08/26/23 21:25:00 EST, [facility], 160, cm, 05/17/23 10:46:00 EDT, Height, 65, kg, 04/28/22 7:07:00 EDT, Dry Weight Start Date: 08/26/23 Status: Ordered Trelegy Ellipta 200 mcg-62.5 mcg-25 mcg/inh inhalation powder 1 puffs, Inhalation, Daily, 1 month supply, # 1 each, 5 Refills, Maintenance, 11/09/23 10:49:00 EDT, [facility], Partial fill upon [...] each, 5 Refills, Maintenance, 09/30/23 14:38:00 EST, [facility], Partial fill upon [...] u/s 2009 5colo 2012 nl, repeat 2022 02869 normal, repeat 2010 7Status post CABG ??1. [...] Pt will not have BS's < 70 (intermediate) Start Jeronimo e:03/12/23 End Date:06/11/23 Status:Met Progression:Not Met Self Manages Postprandial Gl ucose to Less than 180 mg/dl Start Date:03/12/23 End Date:06/11/23 Status:Met Progression:Met EKG study * Event Display: EKG Authored Date: [id number] Laboratory * Adelina Recinos: PERFORM Event Display: Laboratory Results Scanned Authored Date: [id number] Radiology * Event Display: Radiology Result Scanned Authored Date: * Event Display: Non BH Radiology Results Authored Date: * Event Display: Radiology Result Scanned Authored Date: Patient Care team information Care Team Personnel Name: Eliza Alejandre RN Position: [facility] RN Member Role: Primary Care Nurse Name: Breanna Moreno Position: [facility] Outreach Member Role: Lifetime Consulting Physician Name: Antony Pappas MD Position: [facility] Physician - Primary Care Member Role: PCP Address: Address: [address] [place] [address]- [place] Name: Silvia Lawrence RN Position: [facility] RN Member Role: Primary Care Nurse Name: Sahra ([employer]) Sarah Position: [facility] co director Member Role: Human Resources File Clerk Name: Laura Chapin RN Position: [facility] RN Member Role: Primary Care Nurse Name: Lenora Martines NP Position: Reference Physician Member Role: Primary Care Nurse Address: Address: [address] [place] [address]- [place] Name: Carrol Strauss RN Position: [facility] AMB Nurse Member Role: Primary Care Nurse Name: Claire Carr RN Position: [facility] RN Member Role: Primary Care Nurse Name: Rachel Robledo RN Position: [facility] RN Member Role: Primary Care Nurse Name: Richa Owens RN Position: [facility] RN Member Role: Primary Care Nurse Care Team Related Persons Name: J LUIS HOFF Address: home [address], [place] Name: HARVINDER FRANCISCO Address: home [address] [place] [address]
--- OUTSIDE RECORDS SUMMARY | 2024-05-22 07:11 | XMS_ITS | Continuity of Care Document ---
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 Refills 3, Maintenance, 09/26/21 10:53:00 EST, Powder, Route to Pharmacy Electronically, [id number], [facility], [address],... Start Date: 09/26/21 Status: Ordered amLODIPine 2.5 mg oral tablet 1 tablet, By Mouth, Daily, # 90 tablet, 1 Refills, [facility], 159, cm, 11/26/21 11:06:00 EDT, Height Start Date: 12/09/21 Status: Ordered aspirin 81 mg oral delayed release tablet 81 mg, 1, tablet, By Mouth, Daily, # 30 tablet, Refills 0, Maintenance, 09/07/18 15:22:30 EST Start Date: 09/07/18 Status: Ordered atorvastatin 80 mg oral tablet 1 tablet, By Mouth, Daily, # 90 tablet, 1 Refills, [facility], 159, cm, 05/28/21 10:42:00 EDT, Height Start Date: 08/19/21 Status: Ordered ergocalciferol 20173 iu oral capsule 1, capsule, By Mouth, Every week, # 5 capsule, Refills 12, Tot. Refills 0, Maintenance, 01/01/21 14:53:00 EDT, Route to Pharmacy Electronically, [facility], 159, cm, 11/27/20 15:59:00 [...] tablet, Refills 1, Route to Pharmacy Electronically, [facility], 159, cm, 05/28/21 10:42:00 EDT, Height Start Date: 06/23/21 Status: Ordered gabapentin 300 mg oral capsule 1, capsule, By Mouth, Daily at bedtime, # 90 capsule, Refills 3, Route to Pharmacy Electronically, [facility], 159, cm, 02/20/21 6:56:00 EDT, Height Start Date: 05/20/21 Status: Ordered glipiZIDE 10 mg oral tablet 1 tablet, By Mouth, 2 times a day, # 180 tablet, 1 Refills, [facility], 159, cm, 11/21/21 11:16:00 [...] 09/25/20 15:22:00 EST, Route to Pharmacy Electronically, [facility], Partial fill upon patient request if the prescription is for a schedule II opioid d... Start Date: 09/25/20 Status: Ordered Metoprolol Succinate ER 50 mg oral tablet, extended release 1 tablet, By Mouth, Daily, # 90 tablet, 3 Refills, [facility], 159, cm, 09/04/21 13:27:00 EST, Height Start Date: 10/02/21 Status: Ordered ProAir HFA 90 mcg/inh inhalation aerosol with adapter 2, puffs, Inhalation, Every 6 hours, PRN, # 8.5 Gm, Refills 6, Tot. Refills 6, Maintenance, 11/10/21 10:21:00 EDT, Aerosol, Route to Pharmacy Electronically, [id number], [facility], 159, cm, 11/10/21 9:57:00 EDT, H... Start Date: 11/10/21 Status: Ordered ReliOn/Novolin N 100 units/mL subcutaneous injection See Instructions, INJECT 18 UNITS SUBCUTANEOUSLY IN THE MORNING AND 9 IN THE EVENING, # 10 mL, 5 Refills, [facility], 159, cm, 09/04/21 13:27:00 EST, Height Start Date: 10/06/21 Status: Ordered sildenafil 25 mg oral tablet 1 tablet, By Mouth, Daily, PRN NEEDED, PRIOR TO SEXUAL INTERCOURSE., # 2 tablet, 11 Refills, [facility], 159, cm, 11/26/21 11:06:00 EDT, Height Start Date: 12/08/21 Status: Ordered Singulair 10 mg oral tablet 10 mg, 1, tablet, By Mouth, Daily, # 30 tablet, Refills 6, Tot. Refills 6, Maintenance, 11/10/21 10:21:00 EDT, Route to Pharmacy Electronically, [facility], Partial fill upon patient request if the prescription is for a schedule II opioid d... Start Date: 11/10/21 Status: Ordered terazosin 5 mg oral capsule 1, capsule, By Mouth, Daily at bedtime, # 90 capsule, Refills 0, Route to Pharmacy Electronically, [facility], 159, cm, 09/04/21 13:27:00 [...] u/s 2009 5colo 2012 nl, repeat 2022 31496 normal, repeat 2010 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 8Methacholine challenge test 2014 positive for asthma. 9Dr. Misa 2014 10Patient declines further PSA testing as of October 2015. Social History Social History Type Response Smoking Status Former smoker; Other : Smoking age 55. social smoker; entered on: 09/29/16 Sex
--- OUTSIDE RECORDS SUMMARY | 2024-05-22 07:11 | XMS_ITS | Continuity of Care Document ---
Author Organization [facility] ter Address [address] [place] [address]- Care Team Providers Care Chainer Name Role Phone Elyse LEE, Antony Ospina Primary Care Physician Encounter [facility] Date(s): 09/16/23 - 09/16/[address] [address] Discharge Disposition: A-D/C Home Attending Physician: Jasmeet Asif MD Admitting Physician: Jasmeet Asif MD Referring Physician: Jasmeet Asif MD Allergies, Adverse Reactions, Alerts Substance Reaction [...] n pneumococcal 20-valent conjugate vaccine 12/31/22 Given [id number] 12y+ bivalent booster vax 06/10/22 Given SARS-CoV-2 [...] tetanus-diphtheria toxoids (Td) 07/26/98 Given 1Result Comment: [facility] # 2 scheduled for 10/02/20 2Admin Note: given in clinic 3Admin Note: vis given 4Admin Note: BIOMEDICAL RADHA 5Admin Note: Biomedical Radha [facility] 6Admin Note: given in clinic Medications amLODIPine 2.5 mg oral tablet 1 tablet, By Mouth, Daily, # 90 tablet, 1 Refills, Maintenance, 07/17/23 12:36:00 EST, [facility], 160, cm, 05/17/23 10:46:00 [...] tablet, 1 Refills, Maintenance, 08/17/23 16:12:00 EST, [facility], 160, cm, 05/17/23 10:46:00 [...] Weight Start Date: 09/09/23 Status: Ordered ergocalciferol 26196 iu oral capsule 1, capsule, By Mouth, Every week, # 5 capsule, Refills 11, Tot. Refills 11, Maintenance, 03/09/23 11:38:00 EDT, Route to Pharmacy Electronically, [facility], 160, cm, 12/31/22 9:21:00 EDT,Height, 65, kg, 04/28/22 7:07:00 EDT, Dry Weight Start Date: 03/09/23 Status: Ordered Farxiga 5 mg oral tablet 1 tablet, By Mouth, Daily, # 90 tablet, 3 Refills, Maintenance, 06/02/23 9:27:00 EST, [facility], 160, cm, 05/17/23 10:46:00 [...] Replace Required Details, Route to Pharmacy Electronically, [facility], 160, cm, ... Start Date: 09/01/23 Status: Ordered glipiZIDE 10 mg oral tablet 1 tablet, By Mouth, 2 times a day, # 180 tablet, 3 Refills, Maintenance, 09/22/22 12:28:00 EST, [facility], 160, cm, 09/09/22 14:01:00 EST, Height, 65, kg, 04/28/22 7:07:00 EDT, Dry Weight Start Date: 09/22/22 Status: Ordered Metoprolol Succinate ER 50 mg oral tablet, extended release 1 tablet, By Mouth, Daily, # 90 tablet, 3 Refills, Maintenance, 10/10/22 20:33:00 EDT, [facility], 160, cm, 09/24/22 9:03:00 EST, Height, 65, kg, 04/28/22 7:07:00 EDT, Dry Weight Start Date: 10/10/22 Status: Ordered montelukast 10 mg oral tablet 1, tablet, By Mouth, Daily, # 30 tablet, Refills 5, Tot. Refills 5, Maintenance, 06/28/23 10:39:00 EST, Route to Pharmacy Electronically, [facility], 160, cm, 05/17/23 10:46:00 EDT, Height, 65, kg, 04/28/22 7:07:00 EDT, Dry Weight Start Date: 06/28/23 Status: Ordered Pen [employer], 30 G x 8 mm BD Ultra [...] 10:21:00 EDT, Aerosol, Route to Pharmacy Electronically, [id number], [facility], 159, cm, 11/10/21 9:57:00 EDT, H... Start Date: 11/10/21 Status: Ordered torsemide 20 mg oral tablet 2 tablet, By Mouth, Daily, # 180 tablet, 1 Refills, Maintenance, 08/26/23 21:25:00 EST, [facility], 160, cm, 05/17/23 10:46:00 [...] each, 5 Refills, Maintenance, 03/22/23 15:46:00 EDT, [facility], Partial fill upon [...] u/s 2009 5colo 2012 nl, repeat 2022 26071 normal, repeat 2010 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 8Methacholine challenge test 2014 positive for asthma. 9DrAngy Bynum 2014 10Patient declines further PSA testing as of October 2015. Vital Signs Most recent to oldest [Reference Range]: 1 2 3 Oxygen Saturation [94-100 %] 95 % (09/16/23 2:00 PM) 96 % (09/16/23 1:45 PM) 99 % (09/16/23 1:30 PM) Pulse Rate [55-90 bpm] 62 bpm (09/16/23 12:22 PM) Blood Pressure [90-138/55-84 mm Hg] 151/65mm Hg *H* (09/16/23 2:00 PM) 144/68mm Hg *H* (09/16/23 1:45 PM) 126/60mm Hg (09/16/23 1:30 PM) Respiratory Rate [16-30 br/min] 15 br/min *L* (09/16/23 2:00 PM) 15 br/min *L* (09/16/23 1:45 PM) 11 br/min *L* (09/16/23 1:30 PM) Temperature [96.8-100.4 DegF] 98.7 DegF (09/16/23 1:30 PM) 98.0 DegF (09/16/23 12:22 PM) Liters per Minute 6 L/min (09/16/23 1:30 PM) Mode of Delivery (Oxygen) Room air (09/16/23 2:00 PM) Room air (09/16/23 1:45 PM) Simple face mask (09/16/23 1:30 PM) Blood pressure sites Arm, right (09/16/23 12:22 PM) Temperature Route Temporal (09/16/23 1:30 PM) Temporal (09/16/23 12:22 PM) Social History Social History Type Response Smoking Status Former smoker, quit more than 30 days ago entered on: 09/08/23 Sex Goals Complications of DM Avoided Start Date:05/07/23 End Date: Status:Met Progression:Not Met 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) Start Jeronimo e:03/12/23 End Date:06/11/23 Status:Met Progression:Not Met Note * Veda Ovalles RN: PERFORM Event Display: Discharge/Transfer Note Hospital Authored Date: [id number] Nursing Discharge Note Entered On: 09/16/2023 15:07 EST Performed On: 09/16/2023 15:06 EST by Veda Ovalles RN Nursing Discharge Note 2 Discharge Time : 09/16/2023 14:55 EST Discharge Level of Care at Discharge : Home/Alf/Foster Care Patient Left Unit Via : Wheelchair Patient Accompanied Off Unit with : Responsible adult DC Instructions Provided & Signed by Pt : Yes Patient Understands D/C Instructions : Yes Patient Instructions Discharge Signed : Yes Did Pt have Specialty Bed or Wound Vac : No Veda Ovalles RN - 09/16/2023 15:06 EST * Veda Ovalles RN: PERFORM Event Display: Patient Education/Instruction Authored Date: [id number] Surgery Adult Discharge Instructions [place] [id number] Name: ADOLFO HOFF : 1940?? Visit: 09/16/2023 10:07?? Current Date: 09/16/2023 14:09 ?? Account: [id number]?? Surgery Discharge Instructions We would like to thank you for allowing us to assist you with your healthcare needs. The following includes patient education materials and information regarding your injury/illness. Our entire staffstrives to provide an excellent experience for our patients and their families. PLEASE ENSURE YOU FOLLOW-UP PER THE INSTRUCTIONS BELOW! ?? YOUR OPINION IS IMPORTANT TO US! Please complete the survey you may receive by mail or email. Your feedback will be used to make improvements to the healthcare experiences of our patients and their families. Surveys are administered by [employer], [employer]. ?? If further treatment with your primary care physician or another doctor is recommended, it is important for you to keep the appointment. Call your primary care physician or return to the Emergency Department immediately if your condition worsens, fails to improve, or new symptoms develop. If you need to find a doctor, you can call [facility] for a referral at [phone] or toll free at [phone] [employer] ([phone]) or log in to [email or web address].. ?? [facility], in keeping with [facility] guidance, no longer requires face masks for staff, patientsor visitors in most situations. Similiar to time spent indoors at other locations, there is the chance that you were exposed to repiratory viruses during your time with us (such as flu or COVID-19). If you develop symptoms concerning for a viral respiratory infection, please seek testing (and treatment if indicated) from your medical provider or home test kit. ?? You can view and manage your care through the patient portal or by using a health care gissel of your choosing. [employer] is a website that allows you to securely view your medical information including your hospital discharge summary, office visit summaries, medications and follow-up visits. You can also request appointments, renew medications, and request access to your medical information using a health care gissel of your choosing, or just ask a question. You are entitled to know the individuals who participated in your treatment. This information is available within your medical record and will be provided upon your request. You can enroll at [email or web address] or register d uring your next office visit. You have been discharged from [facility], Patient Care Unit: [facility]??. If you have any questions regarding these instructions after you leave, please call us and we will be happy to assist you. [facility] Your Care Team Attending Physician Jasmeet Asif MD?? Discharging Providers Jasmeet Asif MD Reason for Admission BENIGN PROSTATIC HYPERPLASIA CS23HR Primary Care Provider Elyse LEE, Antony Ospina? Advance Directive Health Care Proxy on File Yes - Health Care Proxy Yes - MOLST What to do next Instructions From Your Doctor ?? Orders?? x 30 minutes at moderate drip then assess urine with CBI clamped. If clear/pink ok for d/c home. I will check on patient later to clear him for home. No RX. continue Macrobid Rx previously sent. first dose tonight., ??09/16/23 13:23:00 EST?? Instructions from your Care Team Continue Macrobid Rx previously sent. first dose tonight. Scheduled Follow-Up Appointments Wednesday 8:15 AM EST ?? With: Wilda Regalado NP Where: [facility] [address] [place] [address]- Status: Pending You Need to Schedule the Following Appointments Follow Up with??Jasmeet Asfi Where: [address] [facility] [place] [address]- Business (1) Follow Up with??Antony Pappas When:??In 0 days Discharge Medications USHAMALACHIADOLFO :1940 Visit Date:09/16/2023 Medications: Please continue your medications until treatment is completed or stopped by your provider. You may resume your daily prescription medications. Discuss any questions related to medications with your provider. What How Much When Instructions Next Dose Unchanged Albuterol (ProAir HFA 90 mcg/ inh inhalation aerosol with adapter) 2 puff(s) Inhalation Every 6 hours as needed for for wheezing Unchanged Amlodipine (amLODIPine 2.5 mg oral tablet) 1 tab(s) Oral Daily Unchanged Aspirin (aspirin 81 mg oral delayed release tablet) 1 tab(s) Oral Daily in the morning Unchanged Atorvastatin (atorvastatin 80 mg oral tablet) 1 tab(s) Oral Daily Unchanged dapagliflozin (Farxiga 5 mg oral tablet) 1 tab(s) Oral Daily Duration: 90 Days Unchanged Durable Medical Equipment (Freestyle Lite Test Strips) See instructions Use to test blood sugar twice daily for DM2 ??E11.9 3 month supply ?? Unchanged Durable Medical Equipment (Pen [employer], 30 G x 8 mm BD Ultra Fine II) See instructions Use to inject insulin once daily (can give 90 day supply) ??E11.9 ??IDDM ?? Unchanged Ergocalciferol (ergocalciferol 50869 iu oral capsule) 1 capsule Oral Every week Unchanged Finasteride (finasteride 5 mg oral tablet) 1 tab(s) Oral Daily in the morning Ordered by urology Dr. Asif (increased from 1mg daily to 5mg daily) ?? Unchanged fluticasone/ umeclidinium/ vilanterol (Trelegy Ellipta) See instructions 1 Inhalation Daily ??100/ 62.5/ 25 ??replaces Advair Samples given ?? Unchanged Gabapentin (gabapentin 300 mg oral capsule) See instructions Take 1 capsule by mouth once daily at bedtime ?? Unchanged GlipiZIDE (glipiZIDE 10 mg oral tablet) 1 tab(s) Oral Twice a day Unchanged insulin degludec (Tresiba FlexTouch 200 units/ mL subcutaneous solution) See instructions 76 units daily and increase 2 units every 3 days until FBS < 130 ??Max dose 90 units daily ?? Unchanged Metoprolol (Metoprolol Succinate ER 50 mg oral tablet, extended release) 1 tab(s) Oral Daily Unchanged Miscellaneous Rx (B-D UF III SHORT PEN NEED MIS) See instructions USE 1 PEN NEEDLE TO INJECT INSULIN ONCE DAILY ?? Unchanged Montelukast (montelukast 10 mg oral tablet) 1 tab(s) Oral Daily Unchanged torsemide (torsemide 20 mg oral tablet) 2 tab(s) Oral Daily Allergies (NKA means No Known Allergies) cephalosporins??(Hives) Education Materials Below is the list of Educational Leaflet Providered with your Discharge Instructions. Web[employer] Ignite Patient Education - Surgery Medical Daystay Surgical Overnight Discharge Instructions?? Valuables and Belongings I fully understand and agree that [facility] accepts no responsibility for all my personal property including clothing, toilet articles, radios, jewelry, dentures, hearing aids, rings, money, or any other property that is in my possession or is brought to me after admission. I understand certain valuables may be placed in a hospital safe for a short period of time. I understand that the hospital is not liable for loss or damage due to accident, fire, or other natural occurrence while said property is in the safe. I accept full responsibility for any personal property that I keep with me, and will not hold the hospital responsible in case of loss or disappearance. I acknowledge that i have been encouraged to send valuables and belongings home. ?? Review of Valuable and Belonging List: With patient Date for Pt to Sign Valuables/Belongings: 09/16/23 12:22:00 ?? Valuables & Belongings ?? Clothes Electronic devices Jewelry Monetary Items Personal devices Miscellaneous Medications (Valuables) Valuables at Bedside Jacket, Pants, Shirt, Shoes, Undergarments ? Dentures, partial plate, Glasses ? Valuables Sent Home ? Valuables Sent to Security ? Other Discharge Information ? Pulmonary Rehab Status?? Pulmonary Rehab Discharge Status?? Respiratory Rate:??15 br/min??Low ? Common Emergency Awareness Tips IS IT A STROKE? Act FAST and Check for these signs: FACE Does the face look uneven? ARM Does one arm drift down? SPEECH Does their speech sound strange? TIME Call at any sign of stroke ?? Heart Attack Signs Chest discomfort: Most heart attacks involve discomfort in the center of the chest and lasts more than a few minutes, or goes away and comes back. It can feel like uncomfortable pressure, squeezing, fullness or pain. Discomfort in upper body: Symptoms can include pain or discomfort in one or both arms, back, neck, jaw or stomach. Shortness of breath: With or without discomfort. Other signs: Breaking out in a cold sweat, nausea, or lightheaded. Remember, MINUTES DO MATTER. If you experience any of these heart attack warning signs, call to get immediate medical attention! ?? Smoking can increase your chances of developing chronic health problems and can cause harmful effects to other family members in your house. If you smoke, you are strongly encouraged to quit. Please call [facility] at [phone] or [phone] ONE [employer]CH[employer] ([phone]) or log in to [email or web address] for referrals to smoking cessation programs. ?? The National Suicide Prevention Hotline is available 15/02 if you or someone you know needs to find a reason to keep living. By calling 1-060-566-Gencia (2924) you'll be connected to a skilled, trained counselor at a crisis center in your area. SURGERY DISCHARGE INSTRUCTIONS SIGNATURE PAGE ADOLFO HOFF Location:[facility] Registration Date and Time:09/16/2023 10:07 EST Primary Care Physician: Elyse LEE, Antony Ospina, Attending Physician: Yefri LEE, Jasmeet Otero, I LUIS EDUARDOADOLFO, have received the above patient education materials/instructions and have verbalizedunderstanding. If ambulance or transport services are being used I further acknowledge being given a choice of service. ?? If you need to contact me, please call me at this number: . Patient/Electrodynamicist Name: Adolfo Hoff Patient/Electrodynamicist Signature: Relationship to Patient: self Witness Name/Signature: Date: 09/16/23 * Veda Ovalles RN: PERFORM, SIGN, VERIFY Event Display: Patient Education Handout Authored Date: [id number] * Veda Ovalles RN: PERFORM Event Display: Patient Education Leaflets Authored Date: [id number] Surgery Medical Daystay Surgical Overnight Discharge Instructions ?? 295 Medical Daystay/Surgical Overnight Discharge Instructions ? Since your coordination and judgment may be altered by medication and/or anesthesia, a responsible adult must drive you home from the hospital. ? If you have received medication for pain or sedation while under our care, you should not drive, operate machinery, drink alcohol, or sign any legal documents for 24 hours.?? You should have someone with you at home tonight. ? Remain at home the day of discharge.?? You may be up and about unless otherwise instructed by your physician. ? You may resume your daily prescription medication schedule.?? Any depressant medication should be avoided for 24 hours unless otherwise instructed by your surgeon or anesthesiologist. ? Call your physician for a follow-up appointment.? If you experience unusual or severe pain not relied by your pain medication, excessive bleedingor drainage, persistent nausea and vomiting, excessive swelling or redness, foul odor from incisionsite or fever over 100.6F, you need to call your physician. ? A follow-up phone call by a nurse will be made the day after your procedure.?? If you have stayed with us over night, you will not be receiving a follow-up phone call. ? Nausea and vomiting are a common side effect of prescription pain medication.?? We recommend that pills are not taken on an empty stomach.?? While taking any prescription pain medication you should not drive or drink alcohol. ? Patient Care team information Care Team Personnel Name: Eliza Alejandre RN Position: [facility] RN Member Role: Primary Care Nurse Name: Breanna Moreno Position: [facility] Outreach Member Role: Lifetime Consulting Physician Name: Antony Pappas MD Position: [facility] Physician - Primary Care Member Role: PCP Address: Address: [address] [place] [address]- [place] Name: Silvia Lawrence RN Position: [facility] RN Member Role: Primary Care Nurse Name: Sahra (Baytrisha) Sarah Position: [facility] gymnastics coach Member Role: Acid Remover Name: Laura Chapin RN Position: [facility] RN Member Role: Primary Care Nurse Name: Lenora Martines NP Position: Reference Physician Member Role: Primary Care Nurse Address: Address: [address] [place] [address]- [place] Name: Carrol Strauss RN Position: [facility] AMB Nurse Member Role: Primary Care Nurse Name: Claire Carr RN Position: S RN Member Role: Primary Care Nurse Name: Rachel Robledo RN Position: S RN Member Role: Primary Care Nurse Name: Richa Owens RN Position: S RN Member Role: Primary Care Nurse Care Team Related Persons Name: J LUIS HOFF Address: home [address] [place] [address] Name: HARVINDER FRANCISCO Address: home [address] [place] [address]
--- OUTSIDE RECORDS SUMMARY | 2024-05-22 07:11 | XMS_ITS | Continuity of Care Document ---
Author Organization [facility] Address [address] [place] [id number]- Care Team Providers Care Testing Coordinator Name Role Phone Antony Pappas MD Primary Care Physician [phone] [place] [facility] [place] 04/10/22 [facility] [address] [place] [address]- Allergies, Adverse Reactions, Alerts No Known Allergies [...] toxoids (Td) 07/26/98 Given 1Result Comment: [facility] # 2 scheduled for 10/02/20 2Admin Note: given in clinic 3Admin Note: vis given 4Admin Note: BIOMEDICAL RADHA 5Admin Note: Biomedical Radha [place] [facility] [place] Note: given in clinic Medications Advair Diskus 250 mcg-50 mcg inhalation powder 1, puffs, Inhalation, 2 times a day, Give 3 month supply, # 3 each, Refills 3, Tot. Refills 3, Maintenance, 09/26/21 10:53:00 EST, Powder, Route to Pharmacy Electronically, [id number], [facility], 159,... Start Date: 09/26/21 Status: Ordered amLODIPine 2.5 mg oral tablet 1 tablet, By Mouth, Daily, # 90 tablet, 1 Refills, [facility], 159, cm, 11/26/21 11:06:00 EDT, Height Start Date: 12/09/21 Status: Ordered aspirin 81 mg oral delayed release tablet 81 mg, 1, tablet, By Mouth, Daily, # 30 tablet, Refills 0, Maintenance, 09/07/18 15:22:30 EST Start Date: 09/07/18 Status: Ordered atorvastatin 80 mg oral tablet 1 tablet, By Mouth, Daily, # 90 tablet, 1 Refills, Maintenance, 02/14/22 11:19:00 EDT, [facility], 160, cm, 02/02/22 8:07:00 [...] 3 Refills, Maintenance, 03/20/22 12:20:00 EDT, Tablet, [facility] 3, Partial fill upon patient request if the prescription is for a schedule II opioid drug., 1 tablet By Mouth 2 times a day,x... Start Date: 03/20/22 Stop Date: 07/18/22 Status: Ordered ergocalciferol 52283 iu oral capsule 1, capsule, By Mouth, Every week, # 5 capsule, Refills 11, Route to Pharmacy Electronically, [facility], 159, cm, 12/29/21 [...] capsule, Refills 3, Route to Pharmacy Electronically, [facility], 159, cm, 02/20/21 6:56:00 EDT, Height Start Date: 05/20/21 Status: Ordered glipiZIDE 10 mg oral tablet 1 tablet, By Mouth, 2 times a day, # 180 tablet, 1 Refills, [facility], 159, cm, 11/21/21 [...] 09/25/20 15:22:00 EST, Route to Pharmacy Electronically, [facility], Partial fill upon patient request if the prescription is for a schedule II opioid d... Start Date: 09/25/20 Status: Ordered ProAir HFA 90 mcg/inh inhalation aerosol with adapter 2, puffs, Inhalation, Every 6 hours, PRN, # 8.5 Gm, Refills 6, Tot. Refills 6, Maintenance, 11/10/21 10:21:00 EDT, Aerosol, Route to Pharmacy Electronically, [id number], [facility], 159, cm, 11/10/21 9:57:00 EDT, H... Start Date: 11/10/21 Status: Ordered ReliOn/Novolin N 100 units/mL subcutaneous injection See Instructions, INJECT 18 UNITS SUBCUTANEOUSLY IN THE MORNING AND 9 IN THE EVENING, # 10 mL, 5 Refills, [facility], 159, cm, 09/04/21 13:27:00 EST, Height Start Date: 10/06/21 Status: Ordered Singulair 10 mg oral tablet 10 mg, 1, tablet, By Mouth, Daily, # 30 tablet, Refills 6, Tot. Refills 6, Maintenance, 11/10/21 10:21:00 EDT, Route to Pharmacy Electronically, [facility]278, Partial fill upon patient request if the prescription is for a schedule II opioid d... Start Date: 11/10/21 Status: Ordered terazosin 5 mg oral capsule 1, capsule, By Mouth, Daily at bedtime, # 90 capsule, Refills 1, Route to Pharmacy Electronically, [facility], 160, cm, 01/30/22 5:01:00 EDT, Height Start Date: 02/01/22 Status: Ordered torsemide 40 mg oral tablet 1 tablet = 40 mg, By Mouth, Daily, # 30 tablet, 1 Refills, Maintenance, 03/20/22 12:20:00 EDT, [facility] 3, Partial fill upon patient request [...] u/s 2009 5colo 2012 nl, repeat 2022 57013 normal, repeat 2010 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 8Methacholine challenge test 2014 positive for asthma. 9Dr. Batlan 2014 10Patient declines further PSA testing as of October 2015. Social History Social History Type Response Tobacco Other: quit age 52, smoked since age 22, 1/2 ppd. Sex Care Team Personnel Name: Elyse LEE, Antony Ospina Address: [address] [place] [phone]-
--- OUTSIDE RECORDS SUMMARY | 2024-05-22 07:11 | XMS_ITS | Continuity of Care Document ---
Author Organization [facility] Address [address] [place] [address]- Care Team Providers Care Laboratory Scientist Name Role Phone Antony Pappas MD Primary Care Physician [phone] Encounter [facility] [place](s): 07/21/23 - 08/26/23 [facility] [address] [place] [address]- Attending Physician: Love Daniels Allergies, Adverse Reactions, Alerts No Known Allergies Immunizations Given and Recorded Vaccine Date Status Refusal Reason pneumococcal 20-valent conjugate vaccine 12/31/22 Given [id number] 12y+ bivalent booster vax 06/10/22 Given influenza [...] tetanus-diphtheria toxoids (Td) 07/26/98 Given 1Result Comment: [facility] # 2 scheduled for 10/02/20 2Admin Note: given in clinic 3Admin Note: vis given 4Admin Note: BIOMEDICAL RADHA 5Admin Note: Biomedical Radha [facility] 6Admin Note: given in clinic Medications [...] Weight Start Date: 08/17/23 Status: Ordered ergocalciferol 82030 iu oral capsule 1, capsule, By Mouth, [...] Maintenance, 08/26/23 9:36:00 EST,Route to Pharmacy Electronically, [facility], 160, cm, 05/17/23 10:46:00 EDT, Height, 65, kg, 04/28/22 7:07:00 EDT, Dry Weight Start Date: 08/26/23 Status: Ordered glipiZIDE 10 mg oral tablet 1 tablet, By Mouth, 2 times a day, # 180 tablet, 3 Refills, Maintenance, 09/22/22 12:28:00 EST, [place] [id number], 160, cm, 09/09/22 14:01:00 EST, Height, 65, kg, 04/28/22 7:07:00 EDT, Dry Weight Start Date: 09/22/22 Status: Ordered metoprolol 50 mg oral tablet, extended release 50 mg, 1, tablet, By Mouth, Daily, # 90 tablet, Refills 3, Tot. Refills 3, Maintenance, 09/25/20 15:22:00 EST, Route to Pharmacy Electronically, [place] [address], Partial fill upon patient request if the prescription is for a schedule II opioid d... Start Date: 09/25/20 Status: Ordered Metoprolol Succinate ER 50 mg oral tablet, extended release 1 tablet, By Mouth, Daily, # 90 tablet, 3 Refills, Maintenance, 10/10/22 20:33:00 EDT, [facility], 160, cm, 09/24/22 9:03:00 EST, Height, 65, kg, 04/28/22 7:07:00 EDT, Dry Weight Start Date: 10/10/22 Status: Ordered montelukast 10 mg oral tablet 1, tablet, By Mouth, Daily, # 30 tablet, Refills 5, Tot. Refills 5, Maintenance, 06/28/23 10:39:00 EST, Route to Pharmacy Electronically, [facility], 160, cm, 05/17/23 10:46:00 EDT, Height, 65, kg, 04/28/22 7:07:00 EDT, Dry Weight Start Date: 06/28/23 Status: Ordered Pen Cougar, 30 G x 8 mm BD Ultra [...] 10:21:00 EDT, Aerosol, Route to Pharmacy Electronically, [id number], [facility], [...] u/s 2009 5colo 2012 nl, repeat 2022 47787 normal, repeat 2010 7Status post CABG ??1. 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 RN Member Role: Primary Care Nurse Name: Breanna Moreno Position: [facility] Outreach Member Role: Lifetime Consulting Physician Name: Antony Pappas MD Position: [facility] Physician - Primary Care Member Role: PCP Address: Address: [place] [address]- [place] Name: Silvia Lawrence RN Position: S RN Member Role: Primary Care Nurse Name: Sahra (Baytrisha) Sarah Position: S net software engineer Member Role: Planning Analyst Name: Laura Chapin RN Position: S RN Member Role: Primary Care Nurse Name: Lenora Martines NP Position: Reference Physician Member Role: Primary Care Nurse Address: Address: [address] [place] [address]- [place] Name: Carrol Strauss RN Position: [facility] AMB Nurse Member Role: Primary Care Nurse Name: Claire Carr RN Position: S RN Member Role: Primary Care Nurse Name: Rachel Robledo RN Position: S RN Member Role: Primary Care Nurse Name: Richa Owens RN Position: [facility] RN Member Role: Primary Care Nurse Care Team Related Persons Name: J LUIS HOFF Address: [address] [place] [address] Name: HARVINDER FRANCISCO Address: home [address] [place] [address]
--- OUTSIDE RECORDS SUMMARY | 2024-05-22 07:11 | XMS_ITS | Continuity of Care Document ---
Author Organization [facility] Address [address] [place] [address]- Care Team Providers Care Planner Name Role Phone Antony Pappas MD Primary Care Physician [phone] [place] [facility] [place] 04/09/24 [facility] [address] [place] [address]- Allergies, Adverse Reactions, Alerts Substance Reaction Severity [...] n pneumococcal 20-valent conjugate vaccine 12/31/22 Given [id number] 12y+ bivalent booster vax 06/10/22 Given SARS-CoV-2 [...] tetanus-diphtheria toxoids (Td) 07/26/98 Given 1Result Comment: [facility] # 2 scheduled for 10/02/20 2Admin Note: given in clinic 3Admin Note: vis given 4Admin Note: BIOMEDICAL RADHA 5Admin Note: Biomedical Radha [facility] 6Admin Note: given in clinic Medications amLODIPine 2.5 mg oral tablet 1 tablet, By Mouth, Daily, # 90 tablet, 1 Refills, Maintenance, 01/15/24 9:48:00 EDT, [facility], 160, cm, 01/07/24 13:01:00 [...] tablet, 0 Refills, Maintenance, 03/02/24 16:11:00 EDT, [facility], 160, cm, 01/20/24 8:40:00 [...] Weight Start Date: 03/21/24 Status: Ordered ergocalciferol 82670 iu oral capsule See Instructions, Take 1 capsule by mouth once a week, # 5 capsule, Refills 11, Tot. Refills 11, Maintenance, 03/10/24 8:42:00 EDT, Instructions Replace Required Details, Route to Pharmacy Electronically, [facility], 160, cm, 03/10/24 8:33:... Start Date: 03/10/24 Status: Ordered Farxiga 10 mg oral tablet 1 tablet = 10 mg, By Mouth, Daily, Replaces 5mg daily now should be 10mg daily., # 30 tablet, 5 Refills, Maintenance, 01/21/24 11:14:00 EDT, Tablet, [facility], Partial fill upon patient [...] Required Details, Route to Pharmacy Electronically, [facility], 160, cm, 0... Start Date: 09/01/23 Status: Ordered glipiZIDE 10 mg oral tablet 1 tablet, By Mouth, 2 times a day, # 180 tablet, 1 Refills, Maintenance, 12/15/23 14:06:00 EDT, [facility], 160, cm, 09/28/23 8:15:00 EST, Height, 63, kg, 09/08/23 10:05:00 EST, Dry Weight Start Date: 12/15/23 Status: Ordered Metoprolol Succinate ER 50 mg oral tablet, extended release 1.5, By Mouth, Daily, total dose Take 75 mg daily., # 45 tablet, 1 Refills, Maintenance, 03/17/24 9:14:00 EDT, [facility], 160, cm, 03/10/24 8:33:00 EDT, Height, 63, kg, 09/08/23 10:05:00 EST, Dry Weight Start Date: 03/17/24 Stop Date: 05/16/24 Status: Ordered montelukast 10 mg oral tablet 1, tablet, By Mouth, Daily, # 30 tablet, Refills 5, Maintenance, 12/22/23 14:09:00 EDT, Route to Pharmacy Electronically, [facility], 160, cm, 09/28/23 8:15:00 EST, Height, 63, kg, 09/08/23 10:05:00 EST, Dry Weight Start Date: 12/22/23 Status: Ordered Pen [place], 31 G x 8 mm BD Ultra [...] 9:24:00 EDT, Aerosol, Route to Pharmacy Electronically, [id number], [facility], 160, cm, 01/20/24 8:40:00 EDT, He... Start Date: 02/03/24 Status: Ordered torsemide 20 mg oral tablet 2 tablet, By Mouth, Daily, # 180 tablet, 1 Refills, Maintenance, 02/21/24 17:55:00 EDT, [facility], 160, cm, 01/20/24 8:40:00 EDT, Height, 63, kg, 09/08/23 10:05:00 EST, Dry Weight Start Date: 02/21/24 Status: Ordered Trelegy Ellipta 200 mcg-62.5 mcg-25 mcg/inh inhalation powder 1 puffs, Inhalation, Daily, 1 month supply, # 1 each, 5 Refills, Maintenance, 11/09/23 10:49:00 EDT, [facility], Partial fill upon patient [...] each, 11 Refills, Maintenance, 03/28/24 10:56:00 EDT, [facility], Partialfill upon patient request [...] u/s 2009 5colo 2012 nl, repeat 2022 76435 normal, repeat 2010 7Status post CABG ??1. 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) Start Jeronimo e:03/12/23 End Date:06/11/23 Status:Met Progression:Not Met Self Manages Postprandial Gl ucose to Less than 180 mg/dl Start Date:03/12/23 End Date:06/11/23 Status:Met Progression:Met Patient Care team information Care Team Personnel Name: Eliza Alejandre RN Position: [facility] RN Member Role: Primary Care Nurse Name: Breanna Moreno Position: [facility] Outreach Member Role: Lifetime Consulting Physician Name: Elyse LEE, Antony Ospina Position: [facility] Physician - Primary Care Member Role: PCP Address: Address: [address] [place] [address]- [place] Name: Silvia Lawrence RN Position: [facility] RN Member Role: Primary Care Nurse Name: Sahra ([employer]) Sarah Position: [facility] liquid chlorine operator Member Role: Sports Equipment Racker Name: Laura Chapin RN Position: [facility] RN Member Role: Primary Care Nurse Name: Lenora Martines NP Position: Reference Physician Member Role: Primary Care Nurse Address: Address: [place] [address]- [place] Name: Carrol Strauss RN Position: [facility] AMB Nurse Member Role: Primary Care Nurse Name: Claire Carr RN Position: [facility] RN Member Role: Primary Care Nurse Name: Rachel Robledo RN Position: [facility] RN Member Role: Primary Care Nurse Name: Richa Owens RN Position: [facility] RN Member Role: Primary Care Nurse Care Team Related Persons Name: J LUIS HOFF Address: [address] [place] [address] Name: HARVINDER FRANCISCO Address: [address] [place] [address]
--- OUTSIDE RECORDS SUMMARY | 2024-05-22 07:11 | XMS_ITS | Continuity of Care Document ---
Author Organization [facility] [place] lt Address [address] [place] [address]- Care Team Providers Care Licensed Occupational Therapy Assistant Name Role Phone Antony Pappas MD Primary Care Physician [phone] [facility] [facility] [place]): 12/31/22 - 01/07/23 [facility] Adult [address] [place] [address]- Attending Physician: Antony Pappas MD Allergies, Adverse Reactions, Alerts No Known Allergies Immunizations Given and Recorded Vaccine Date Status Refusal Reason pneumococcal 20-valent conjugate vaccine 12/31/22 Given [id number] 12y+ bivalent booster vax 06/10/22 Given influenza [...] 10:29:00 EST, Powder, Route to Pharmacy Electronically, [id number], [facility], [facility],... Start Date: 08/27/22 Status: Ordered amLODIPine 2.5 mg oral tablet 1 tablet, By Mouth, Daily, # 90 tablet, 1 Refills, Maintenance, 07/13/22 15:46:00 EST, [facility], 160, cm, 06/10/22 10:45:00 [...] tablet, 1 Refills, Maintenance, 09/08/22 14:54:00 EST, [facility], 160, cm, 07/30/22 9:45:00 EST, Height, 65, kg, 04/28/22 7:07:00 EDT, Dry Weight Start Date: 09/08/22 Status: Ordered ergocalciferol 38053 iu oral capsule 1, capsule, By Mouth, Every week, # 5 capsule, Refills 11, Route to Pharmacy Electronically, [facility], 159, cm, 12/29/21 10:39:00 EDT, Height Start Date: 01/07/22 Status: Ordered Farxiga 5 mg oral tablet 1 tablet = 5 mg, By Mouth, Daily, If Pt cannot afford we will try to get medication assist through the company., # 30 tablet, 3 Refills, Maintenance, 09/11/22 13:16:00 EST, Tablet, [facility], Partial fill upon patient [...] 05/27/22 18:05:00 EDT, Route to Pharmacy Electronically, [facility], 160, cm, 05/01/22 8:19:00 EDT, Height, 65, kg, 04/28/22 7:07:00 EDT, Dry Weight Start Date: 05/27/22 Status: Ordered glipiZIDE 10 mg oral tablet 1 tablet, By Mouth, 2 times a day, # 180 tablet, 3 Refills, Maintenance, 09/22/22 12:28:00 EST, [facility], 160, cm, 09/09/22 14:01:00 [...] 09/25/20 15:22:00 EST, Route to Pharmacy Electronically, [facility], Partial fill upon patient request if the prescription is for a schedule II opioid d... Start Date: 09/25/20 Status: Ordered Metoprolol Succinate ER 50 mg oral tablet, extended release 1 tablet, By Mouth, Daily, # 90 tablet, 3 Refills, Maintenance, 10/10/22 20:33:00 EDT, [facility], 160, cm, 09/24/22 9:03:00 EST, Height, 65, kg, 04/28/22 7:07:00 EDT, Dry Weight Start Date: 10/10/22 Status: Ordered montelukast 10 mg oral tablet See Instructions, Take 1 tablet by mouth once daily, # 30 tablet, Refills 5, Tot. Refills 5, Maintenance, 06/23/22 11:11:00 EST, Instructions Replace Required Details, Route to Pharmacy Electronically, [facility], 160, cm, 06/10/22 10:45:00... Start Date: 06/23/22 Status: Ordered NovoLOG Mix 70/30 subcutaneous suspension See Instructions, Patient wants bottle of insulin not pens. Inject SQ 15 units qam and 15 units qpm, # 10 mL, 5 Refills, Maintenance, 11/27/22 13:21:00 EDT, [facility], Partial fill upon patient request if the prescription is for a schedul... Start Date: 11/27/22 Status: Ordered ProAir HFA 90 mcg/inh inhalation aerosol with adapter 2, puffs, Inhalation, Every 6 hours, PRN, # 8.5 Gm, Refills 6, Tot. Refills 6, Maintenance, 11/10/21 10:21:00 EDT, Aerosol, Route to Pharmacy Electronically, [id number], [facility], 159, cm, 11/10/21 9:57:00 EDT, H... Start Date: 11/10/21 Status: Ordered terazosin 5 mg oral capsule 1, capsule, By Mouth, Daily at bedtime, # 90 capsule, Refills 0, Maintenance, 11/09/22 20:21:00 EDT, Route to Pharmacy Electronically, [facility], 160, cm, 10/16/22 8:32:00 EDT, Height, 65, kg, 04/28/22 7:07:00 EDT, Dry Weight Start Date: 11/09/22 Status: Ordered torsemide 20 mg oral tablet 2 tablet = 40 mg, By Mouth, Daily, # 180 tablet, 3 Refills, Maintenance, 09/09/22 14:25:00 EST, [facility], Partial fill upon patient [...] u/s 2009 5colo 2012 nl, repeat 2022 76213 normal, repeat 2010 7Status post CABG ??1. 2016. 8Methacholine challenge test 2014 positive for asthma. 9Dr. Batlan 2014 10Patient declines further PSA testing as of October 2015. Vital Signs Most recent to oldest [Reference Range]: 1 Height 160 cm (12/31/22 9:21 AM) Weight 64.3 kg (12/31/22 9:21 AM) Body Mass Index [18.5-24.99 kg/m2] 25.12 kg/m2 *H* (12/31/22 9:21 AM) Blood Pressure [90-138/55-84 mm Hg] 122/ 56mm Hg (12/31/22 9:21 AM) Mode of Delivery (Oxygen) Room air (12/31/22 9:21 AM) Blood pressure sites Arm, left (12/31/22 9:21 AM) Weight Obtained Via Standing scale (12/31/22 9:21 AM) Social History Social History Type Response Tobacco Other: quit age 52, smoked since age 22, 1/2 ppd. Sex Note * Anastasia Phillips: PERFORM, SIGN, VERIFY Event Display: Patient Education/Instruction Authored Date: [facility] *BMP Griselda Pina Clinical Summary Name SÁNCHEZ HOFF Age 82 Years 1940 PCP [facility]appas [id number] Visit Date 12/31/2022 09:06:00 Additional Instructions: Scheduled Appointments?? Future Appointments ?*[facility] ?[address]??[place],??[place],??[address] ?Phone:??--?Fax:??-- ?Appt. Date:??01/22/2023?9:25 AM ?Scheduled Provider:??Pepe Junior MD Follow-Up Instructions ?? With: Address: When: Antony Pappas MD In 3 months Diagnosis Atherosclerotic heart disease of [place] coronary artery without angina pectoris; Nonrheumatic aortic (valve) stenosis; Essential (primary) hypertension; Mild persistent asthma, uncomplicated; Arthropathic psoriasis, unspecified; Type 2 diabetes mellitus with other diabetic kidney complication; Pure hypercholesterolemia, unspecified; Heart failure, unspecified; Rheumatoid arthritis, unspecified Medications: Please continue your medications until treatment is completed or stopped by your provider. Discuss any questions related to medications with your provider. Medications to Continue Taking That Have Changed These medications were not printed or sent to your pharmacy - Insulin Aspart-Insulin Aspart Protamine (NovoLOG Mix 70/30 subcutaneous suspension) Patient wantsbottle of insulin not pens. Inject SQ 15 units qam and 15 units qpm. Refills: 5. Next Dose: Medications to Continue [...] through the company.. Refills: 3. Next Dose: Durable Medical Equipment (Freestyle Lite Test Strips) Use to test blood sugar twice daily for DM2 E11.9 3 month supply. Refills: 3. Next Dose: Durable Medical Equipment (Insulin Syringe, BD Ultra-Fine 0.5 cc 31 G x 8 mm (5/16in)) Use twice a day with NPH insulin DM2 E11.9. Refills: 11. Next Dose: Ergocalciferol (ergocalciferol 61646 iu oral capsule) 1 capsule Oral every [...] NKA Medications Given This Visit Future Orders ?Microalbumin Urine? Order Date:12/31/22?- Complete on or after?12/31/22 ?Direct LDL? Order Date:12/31/22?- Complete on or after?12/31/22 ?Hemoglobin A1C (Monitoring)? Order Date:12/31/22?- Complete on or after?12/31/22 ?CBC? Order Date:12/31/22?- Complete on or after?12/31/22 ?Comprehensive Metabolic Panel? Order Date:12/31/22?- Complete on or after?12/31/22 ?Thyroid Panel? Order Date:12/31/22?- Complete on or after?12/31/22 ?B Type Natriuretic Peptide? Order Date:04/02/23?- Complete by?04/23/23 ?Comprehensive Metabolic Panel? Order Date:04/02/23?- Complete by?04/23/23 ?Hemoglobin A1C (Monitoring)? Order Date:04/02/23?- Complete by?04/23/23 Vital Signs Height 160 cm Weight 64.3 kg BMI 25.12 kg/m2 Blood Pressure 122 mm Hg/56 mm Hg Temperature Pulse Rate Respiratory Rate 02 Sat Mode of Delivery /Room air You can now view a summary of your hospital visit from the comfort of your home through a free online portal called [employer] is a website that allows you to securely view your medical information including discharge summary, medications and follow-up visits. ??You can alsosend a secure electronic message to your doctor???s office to request appointments, renew medications or just ask a question. You can enroll at [email or web address] or register during your next office [...] primary care provider, you may find a [facility] provider by calling [facility] [employer] at [phone]. For information about the plan of care [...] Team Personnel Name: Eliza Alejandre RN Position: [facility] RN Member Role: Primary Care Nurse Name: Breanna Moreno Position: [facility] Outreach Member Role: Lifetime Consulting Physician Name: Antony Pappas MD Position: [facility] Physician - Primary Care Member Role: PCP Address: Address: [address] [place] [id number]- Name: Silvia Lawrence RN Position: [facility] RN Member Role: Primary Care Nurse Name: Heather Pardo Position: [facility] TA Member Role: Lifetime Consulting Physician Name: Laura Chapin RN Position: [facility] RN Member Role: Primary Care Nurse Name: Lenora Martines NP Position: Reference Physician Member Role: Primary Care Nurse Address: Address: [address] [place] [id number]- Name: Carrol Strauss RN Position: [facility] AMB Nurse Member Role: Primary Care Nurse Name: Claire Carr RN Position: [facility] RN Member Role: Primary Care Nurse Name: Rachel Robledo RN Position: [facility] RN Member Role: Primary Care Nurse Name: Richa Owens RN Position: [facility] RN Member Role: Primary Care Nurse Care Team Related Persons Name: J LUIS HOFF Address: home [address] [place] [address] Name: HARVINDER FRANCISCO Address: home [address] [place] [address]
--- OUTSIDE RECORDS SUMMARY | 2024-05-22 07:11 | XMS_ITS | Continuity of Care Document ---
Author Organization [facility] [place] lt Address [address] [place] [address]- Care Team Providers Care Lead Portfolio Manager Name Role Phone Antony Pappas MD Primary Care Physician [phone] [place] [facility] [place] 05/[place] [address] [place] [address]- Allergies, Adverse Reactions, Alerts Substance Reaction Severity [...] n pneumococcal 20-valent conjugate vaccine 12/31/22 Given [id number] 12y+ bivalent booster vax 06/10/22 Given SARS-CoV-2 [...] (Td) 07/26/98 Given 1Result Comment: [facility] # 2 scheduled for 10/02/20 2Admin Note: given in clinic 3Admin Note: vis given 4Admin Note: BIOMEDICAL RADHA 5Admin Note: Biomedical Radha of [facility] 6Admin Note: given in clinic Medications aspirin 81 mg oral delayed release tablet 81 mg, 1, tablet, By Mouth, Daily in AM, # 30 tablet, Refills 0, Maintenance, 09/07/18 15:22:30 EST Start Date: 09/07/18 Status: Ordered atorvastatin 80 mg oral tablet 1 tablet, By Mouth, Daily, # 90 tablet, 0 Refills, Maintenance, 03/02/24 16:11:00 EDT[facility] 160, cm, 01/20/24 8:40:00 [...] Weight Start Date: 03/21/24 Status: Ordered ergocalciferol 85780 iu oral capsule See Instructions, Take 1 capsule by mouth once a week, # 5 capsule, Refills 11, Tot. Refills 11, Maintenance, 03/10/24 8:42:00 EDT, Instructions Replace Required Details, Route to Pharmacy Electronically, [facility], 160, cm, 03/10/24 8:33:... Start Date: 03/10/24 Status: Ordered Farxiga 10 mg oral tablet 1 tablet = 10 mg, By Mouth, Daily, Replaces 5mg daily now should be 10mg daily., # 30 tablet, 5 Refills, Maintenance, 01/21/24 11:14:00 EDT, Tablet, [facility], Partial fill upon [...] Replace Required Details, Route to Pharmacy Electronically, [facility], 160, cm, 0... Start Date: 09/01/23 Status: Ordered glipiZIDE 10 mg oral tablet 1 tablet, By Mouth, 2 times a day, # 180 tablet, 1 Refills, Maintenance, 12/15/23 14:06:00 EDT, [facility], 160, cm, 09/28/23 8:15:00 EST, Height, 63, kg, 09/08/23 10:05:00 EST, Dry Weight Start Date: 12/15/23 Status: Ordered hydrALAZINE 25 mg oral tablet 25 mg, 1, tablet, By Mouth, 3 times a day, New per [facility] d/c, # 90 tablet, Refills 0, Maintenance, 04/11/24 8:53:00 EDT, Partial fill upon patient request if the prescription is for a schedule II opioid drug. Start Date: 04/11/24 Status: Ordered Imdur 30 mg oral tablet, extended release 1, tablet, By Mouth, Daily in AM, Replaces amlodipine 2.5mg per [facility] d/c instructions, # 30 tablet, Refills 0, Maintenance, 04/11/24 8:52:00 EDT, Partial fill upon patient request if the prescription is for a schedule II opioid drug. Start Date: 04/11/24 Status: Ordered Lasix 80 mg oral tablet See Instructions, 1 tablet by mouth daily in the morning with an extra tablet in the afternoon if patient gains 2 pounds., # 180 tablet, Refills 3, Tot. Refills 3, Maintenance, 04/19/24 10:34:00 EDT,Instructions Replace Required Details, Route to Pha... Start Date: 04/19/24 Status: Ordered metoprolol 50 mg oral tablet, extended release 50 mg, 1, tablet, By Mouth, Daily, Decreased by [facility] d/c from 75mg to 50mg daily, Refills 0, Maintenance, 04/11/24 8:56:00 EDT, Partial fill upon patient request if the prescription is for a schedule II opioid drug. Start Date: 04/11/24 Status: Ordered montelukast 10 mg oral tablet 1, tablet, By Mouth, Daily, # 30 tablet, Refills 5, Maintenance, 12/22/23 14:09:00 EDT, Route to Pharmacy Electronically, [facility], 160, cm, 09/28/23 8:15:00 EST, Height, 63, kg, 09/08/23 10:05:00 EST, Dry Weight Start Date: 12/22/23 Status: Ordered Pen [place], 31 G x 8 mm BD Ultra [...] 9:24:00 EDT, Aerosol, Route to Pharmacy Electronically, [id number], [facility], 160, cm, 01/20/24 8:40:00 EDT, He... Start Date: 02/03/24 Status: Ordered RELION PEN NEEDLE 31G/8MM MIS RELION PEN NEEDLE 31G/8MM MIS, See Instructions, # 30 each, 6 Refills, Maintenance, USE 1 PEN NEEDLE TO INJECT INSULIN ONCE DAILY, 04/24/24 7:53:00 EDT, 160, cm, 04/19/24 10:17:00 EDT, Height, 63, kg, 09/08/23 10:05:00 EST, Dry Weight Start Date: 04/24/24 Status: Ordered Trelegy Ellipta 200 mcg-62.5 mcg-25 mcg/inh inhalation powder 1 puffs, Inhalation, Daily, # 60 each, 5 Refills, Maintenance, 04/28/24 14:29:00 EDT, [facility], 30, INHALE 1 PUFF ONCE DAILY, 160, cm, 04/19/24 10:17:00 EDT, Height, 63, kg, 09/08/23 10:05:00 EST, Dry Weight Start Date: 04/28/24 Status: Ordered Tresiba FlexTouch 200 units/mL subcutaneous solution See Instructions, 65 units daily and increase 2 units every 3 days until FBS < 130 Max dose 90 units daily, # 5 each, 11 Refills, Maintenance, 03/28/24 10:56:00 EDT, [facility], Partialfill upon patient request if [...] u/s 2009 5colo 2012 nl, repeat 2022 57980 normal, repeat 2010 7Status post CABG ??1. 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 Member Role: Lead Principal Technical Architect Name: Laura Chapin RN Position: [facility] RN Member Role: Primary Care Nurse Name: Lenora Martines NP Position: Reference Physician Member Role: Primary Care Nurse Address: Address: [address] [place] [id number] Name: Carrol Strauss RN Position: [facility] AMB Nurse Member Role: Primary Care Nurse Name: Claire Carr RN Position: [facility] RN Member Role: Primary Care Nurse Name: Rachel Robledo RN Position: [facility] RN Member Role: Primary Care Nurse Name: Richa Owens RN Position: [facility] RN Member Role: Primary Care Nurse Care Team Related Persons Name: USHAMALACHI J LUIS Address: [address] [place] [address] Name: HARVINDER FRANCISCO Address: [address] [place] [address]
--- OUTSIDE RECORDS SUMMARY | 2024-05-22 07:11 | XMS_ITS | Continuity of Care Document ---
Author Organization [facility] Frederick Ponce lt Address [address] [place] [address]- Care Team Providers Care Loss Prevention Specialist Name Role Phone Antony Pappas MD Primary Care Physician [place] [facility] [place] 03/17/24 [facility] Adult [address] [place] [address]- Attending Physician: Antony Pappas MD Allergies, Adverse [...] n pneumococcal 20-valent conjugate vaccine 12/31/22 Given [id number] 12y+ bivalent booster vax 06/10/22 Given SARS-CoV-2 [...] tetanus-diphtheria toxoids (Td) 07/26/98 Given 1Result Comment: [facility] # 2 scheduled for 10/02/20 2Admin Note: given in clinic 3Admin Note: vis given 4Admin Note: BIOMEDICAL RADHA 5Admin Note: Biomedical Radha [facility] 6Admin Note: given in clinic Medications amLODIPine 2.5 mg oral tablet 1 tablet, By Mouth, Daily, # 90 tablet, 1 Refills, Maintenance, 01/15/24 9:48:00 EDT, [facility], 160, cm, 01/07/24 13:01:00 [...] tablet, 0 Refills, Maintenance, 03/02/24 16:11:00 EDT, [facility], 160, cm, 01/20/24 8:40:00 EDT, Height, 63, kg, 09/08/23 10:05:00 EST, Dry Weight Start Date: 03/02/24 Status: Ordered ergocalciferol 39882 iu oral capsule See Instructions, Take 1 capsule by mouth once a week, # 5 capsule, Refills 11, Tot. Refills 11, Maintenance, 03/10/24 8:42:00 EDT, Instructions Replace Required Details, Route to Pharmacy Electronically, [facility], 160, cm, 03/10/24 8:33:... Start Date: 03/10/24 Status: Ordered Farxiga 10 mg oral tablet 1 tablet = 10 mg, By Mouth, Daily, Replaces 5mg daily now should be 10mg daily., # 30 tablet, 5 Refills, Maintenance, 01/21/24 11:14:00 EDT, Tablet, [facility], Partial fill upon [...] Replace Required Details, Route to Pharmacy Electronically, [facility], 160, cm, ... Start Date: 09/01/23 Status: Ordered glipiZIDE 10 mg oral tablet 1 tablet, By Mouth, 2 times a day, # 180 tablet, 1 Refills, Maintenance, 12/15/23 14:06:00 EDT, [facility], 160, cm, 09/28/23 8:15:00 EST, Height, 63, kg, 09/08/23 10:05:00 EST, Dry Weight Start Date: 12/15/23 Status: Ordered Metoprolol Succinate ER 50 mg oral tablet, extended release 1.5, By Mouth, Daily, total dose Take 75 mg daily., # 45 tablet, 1 Refills, Maintenance, 03/17/24 9:14:00 EDT, [facility], 160, cm, 03/10/24 8:33:00 EDT, Height, 63, kg, 09/08/23 10:05:00 EST, Dry Weight Start Date: 03/17/24 Stop Date: 05/16/24 Status: Ordered montelukast 10 mg oral tablet 1, tablet, By Mouth, Daily, # 30 tablet, Refills 5, Maintenance, 12/22/23 14:09:00 EDT, Route to Pharmacy Electronically, [facility], 160, cm, 09/28/23 8:15:00 EST, Height, 63, kg, 09/08/23 10:05:00 EST, Dry Weight Start Date: 12/22/23 Status: Ordered Pen Kevil, 31 G x 8 mm BD Ultra [...] 9:24:00 EDT, Aerosol, Route to Pharmacy Electronically, [id number], [facility], 160, cm, 01/20/24 8:40:00 EDT, He... Start Date: 02/03/24 Status: Ordered torsemide 20 mg oral tablet 2 tablet, By Mouth, Daily, # 180 tablet, 1 Refills, Maintenance, 02/21/24 17:55:00 EDT, [facility], 160, cm, 01/20/24 8:40:00 EDT, Height, 63, kg, 09/08/23 10:05:00 EST, Dry Weight Start Date: 02/21/24 Status: Ordered Trelegy Ellipta 200 mcg-62.5 mcg-25 mcg/inh inhalation powder 1 puffs, Inhalation, Daily, 1 month supply, # 1 each, 5 Refills, Maintenance, 11/09/23 10:49:00 EDT, [facility], Partial fill upon [...] each, 5 Refills, Maintenance, 09/30/23 14:38:00 EST, [facility], Partial fill upon [...] u/s 2009 5colo 2012 nl, repeat 2022 65451 normal, repeat 2010 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 8Methacholine challenge test 2014 positive for asthma. 9Dr. Batlan 2014 10Patient declines further PSA testing as of October 2015. Vital Signs Most recent to oldest [Reference Range]: 1 Height 160 cm (03/10/24 8:33 AM) Weight 65.7 kg (03/10/24 8:33 AM) Oxygen Saturation [94-100 %] 96 % (03/10/24 8:33 AM) Pulse Rate [55-90 bpm] 76 bpm (03/10/24 8:33 AM) Body Mass Index [18.5-24.99 kg/m2] 25.66 kg/m2 *H* (03/10/24 8:33 AM) Blood Pressure [90-138/55-84 mm Hg] 104/ 74mm Hg (03/10/24 8:33 AM) Mode of Delivery (Oxygen) Room air (03/10/24 8:33 AM) Blood pressure sites Arm, right (03/10/24 8:33 AM) Weight Obtained Via Standing scale (03/10/24 8:33 AM) Social History Social History Type Response Smoking Status Former smoker, quit more than 30 days ago entered on: 09/08/23 Sex Goals I Will Take My Medications as Directed by My Pro vider Start Date:12/02/23 End Date: Status:Met Progression:Not Met Complications of DM Avoided Start Date:05/07/23 End Date: Status:Met Progression:Not Met Pt will not have BS's < 70 (terminal gauger) Start Jeronimo e:03/12/23 End Date:06/11/23 Status:Met Progression:Not Met Self Manages Postprandial Gl ucose to Less than 180 mg/dl Start Date:03/12/23 End Date:06/11/23 Status:Met Progression:Met Note * Suma Zhang: PERFORM Event Display: Patient Education/Instruction Authored Date: [id number] Ambulatory Adult Visit Summary [facility] Adult [facility] [address] [place] [address] Name: SÁNCHEZ HOFF : 1940?? Visit: 03/10/2024 08:32?? Ambulatory Visit Instructions ?? Your Care Team Primary Care Provider Antony Pappas MD? This Visit Provider Antony Pappas MD Your Diagnosis Anemia of chronic disease Asthma, mild persistent Background diabetic retinopathy CAD (coronary artery disease) CHF (congestive heart failure) Diabetic neuropathy HTN (hypertension) Hypercholesterolemia Psoriatic arthritis RA (rheumatoid arthritis) Vitals Signs Pulse Rate: 76 bpm Height: 160 cm Systolic Blood Pressure: 104 mm Hg Weight: 65.7 kg Diastolic Blood Pressure: 74 mm Hg Body Mass Index:??25.66 kg/m2??High Oxygen Saturation: 96 % Body surface area: 1.71 What to do next Follow-Up Appointments Follow Up with??Antony Pappas MD When:??In 6 months Why: Physical examination Where: ?? Future Orders Comprehensive Metabolic Panel - Routine, Once, 03/10/24 8:49:00 EDT, Copy to: Kermit Nguyen MD, Future Order, [facility], Blood?? Hemoglobin A1C (Monitoring) - Routine, Once, 03/10/24 8:49:00 EDT, Copy to: Kermit Nguyen MD, Future Order, [facility], Blood?? Microalbumin Urine (Urine Microalbumin) - Routine, Once, 03/10/24 8:49:00 EDT, Copy to: Kermit Nguyen MD, [facility], Urine?? Lipid Panel - Routine, Once, 03/10/24 8:49:00 EDT, Copy to: Kermit Nguyen MD, Future Order, [facility], Blood?? Thyroid Panel - Routine, Once, 03/10/24 8:49:00 EDT, Copy to: Kermit Nguyen MD, Future Order, [facility], Blood?? CBC - Routine, Once, 03/10/24 8:49:00 EDT, Copy to: Kermit Nguyen MD, Future Order, [facility], Blood?? PTH Intact - Routine, Once, 03/10/24 8:50:00 EDT, Copy to: Kermit Nguyen MD, Future Order, [facility],Blood?? Medications The list below reflects the information in our records and provided by you today along with any changes made during this visit. Please continue your medications until treatment is completed or stopped by your provider. If this is different from the information you have or there are other questions,please contact the prescribing provider. What How Much When Instructions Changed Ergocalciferol (ergocalciferol 77048 iu oral capsule) See instructions Take 1 capsule by mouth once a week ?? Unchanged Albuterol (ProAir HFA 90 mcg/ inh inhalation aerosol with adapter) 2 puff(s) Inhalation Every 6 hours as needed for for wheezing Unchanged Amlodipine (amLODIPine 2.5 mg oral tablet) 1 tab(s) Oral Daily Unchanged Aspirin (aspirin 81 mg oral delayed release tablet) 1 tab(s) Oral Daily in the morning Unchanged Atorvastatin (atorvastatin 80 mg oral tablet) 1 tab(s) Oral Daily Unchanged dapagliflozin (Farxiga 10 mg oral tablet) 1 tab(s) Oral Daily Replaces 5mg daily now should be 10mg daily. ?? Unchanged Durable Medical Equipment (Freestyle Lite Test Strips) See instructions Use to test blood sugar twice daily for DM2 ??E11.9 3 month supply ?? Unchanged Durable Medical Equipment (Pen Kevil, 31 G x 8 mm BD Ultra Fine III) See instructions Dx: Diabetes type 2 (E11.9) Use one pen needle to inject insulin up to 3 times a day ?? Unchanged Finasteride (finasteride 5 mg oral tablet) 1 tab(s) Oral Daily in the morning Ordered by urology Dr. Asif (increased from 1mg daily to 5mg daily) ?? Unchanged fluticasone/ umeclidinium/ vilanterol (Trelegy Ellipta 200 mcg-62.5 mcg-25 mcg/ inh inhalation powder) 1 puff(s) Inhalation Daily 1 month supply ?? Unchanged Gabapentin (gabapentin 300 mg oral [...] ER 50 mg oral tablet, extended release) 1.5 Oral Daily Duration: 30 Days total dose Take 75 mg daily. ?? Unchanged Montelukast (montelukast 10 mg oral tablet) 1 tab(s) Oral Daily Unchanged torsemide (torsemide 20 mg oral tablet) 2 tab(s) Oral Daily ?? What How Much When Comments Stop Taking Azithromycin (Azithromycin 5 Day Dose Pack 250 mg oral tablet) 1 pack/packet Oral Once as directed on package labeling ?? Test Performed Below is a partial list of the tests performed during your Visit. You may have had other tests and procedures not included in this list. Please discuss all test results with your provider. CBC?-- Results Pending -- Comprehensive Metabolic Panel?-- Results Pending -- Hemoglobin A1C (Monitoring)?-- Results Pending -- Lipid Panel?-- Results Pending -- PTH Intact?-- Results Pending -- Thyroid Panel?-- Results Pending -- Urine Microalbumin?-- Results Pending -- Medications and Immunizations Administered Medications Given During Visit No medications given during this visit.?? Allergies (NKA means No Known Allergies) cephalosporins??(Hives) Common Emergency Awareness Tips IS IT A [...] of these heart attack warning signs, call 03-26- to get immediate medical attention! ?? Smoking can increase your chances of developing chronic health problems and can cause harmful effects to other family members in your house. If you smoke, you are strongly encouraged to quit. Please call [facility] Link at [phone] or [phone] ([phone]) or log in to [email or web address] for referrals to smoking cessation programs. ?? The National Suicide Prevention Hotline is available 15/02 if you or someone you know needs to find a reason to keep living. By calling 6-711-302-semanticlabs (3092) you'll be connected to a skilled, trained counselor at a crisis center in your area. [facility] Portal You can view and manage your care through the patient portal or by using a health care gissel of your choosing. [employer] is a website that allows you to securely view your medical information including your hospital discharge summary, office visit summaries, medications and follow-up visits. You can also request appointments, renew medications, and request access to your medical information using a health care gissel of your choosing, or just ask a question. You can enroll at [email or web address] or register during your next office visit. [facility], in keeping with [facility] guidance, no longer requires face masks [...] medical provider or home test kit. ?? Disclaimer: The information provided is of a general nature and is intended to be used in conjunction with the recommendations and advice of your health care practitioner. Every effort has been made to ensure that the information provided is accurate and complete at the time it is provided to you however, as your needs change, or, as new information becomes available, different or additional instructions may be required. ?? If you have questions, please consult with your primary care provider or pharmacist, as appropriate. This information is not intended to serve as substitution for assessment and evaluation by a qualified health care provider. If you do not have a primary care provider, you may find a [facility] provider by calling [facility] at [phone]. Patient Care team information Care Team Personnel Name: Eliza Alejandre RN Position: [facility] RN Member Role: Primary Care Nurse Name: Breanna Moreno Position: S Outreach Member Role: Lifetime Consulting Physician Name: Antony Pappas MD Position: [facility] Physician - Primary Care Member Role: PCP Address: Address: [address] [place] [address]- Name: Silvia Lawrence RN Position: S RN Member Role: Primary Care Nurse Name: Sah[facility] ([facility] Sarah Position: [facility] 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 Member Role: Renewals Representative Name: Laura Chapin RN Position: S RN Member Role: Primary Care Nurse Name: Lenora Martines NP Position: Reference Physician Member Role: Primary Care Nurse Address: Address: [address] [place] [address]- Name: Carrol Strauss RN Position: [facility] AMB Nurse Member Role: Primary Care Nurse Name: Claire Carr RN Position: S RN Member Role: Primary Care Nurse Name: Rachel Robledo RN Position: [facility] RN Member Role: Primary Care Nurse Name: Richa Owens RN Position: S RN Member Role: Primary Care Nurse Care Team Related Persons Name: USHAMALACHIJ LUIS Address: [address] [place] [address] Name: HARVINDER FRANCISCO Address: [address] [place] [address]
--- OUTSIDE RECORDS SUMMARY | 2024-05-22 07:11 | XMS_ITS | Continuity of Care Document ---
Author Organization [facility] Ponce lt Address [address] [place] [address]- Care Team Providers Care Support Group Manager Name Role Phone Antony Pappas MD Primary Care Physician [phone] Encounter [facility] Date(s): 08/01/20 - 08/31/20 [facility] Adult [address] [place] [address]- Allergies, Adverse Reactions, Alerts Substance Reaction Severity [...] 4Admin Note: Biomedical Radha [facility] 5Admin Note: given in clinic Medications amLODIPine 2.5 mg oral tablet 2.5 mg, 1, tablet, By Mouth, Daily, # 30 tablet, Refills 11, Tot. Refills 11, Maintenance, 06/07/2011:56:00 EST, Route to Pharmacy Electronically, [facility], Partial fill upon patient [...] 1 Refills, Maintenance, 08/01/20 9:55:00 EST, Tablet, [facility], 159, cm, 07/10/20 11:05:00 EST, Height Start Date: 08/01/20 Status: Ordered Breo Ellipta 100 mcg-25 mcg/inh inhalation powder 1 puffs, Inhalation, Daily, In place of QVAR 90 day supply, # 3 each, 1 Refills, Maintenance, 04/15/20 14:44:00 EDT, Powder, [facility], 1 puffs Inhalation Daily,Instr:In place of QVAR; 90day supply, 159, cm, 01/30/20 15:17:00 EDT, Height Start Date: 04/15/20 Status: Ordered ergocalciferol 47152 iu oral capsule 50,000 International_Units, 1, capsule, By Mouth, Every week, # 5 capsule, Refills 5, Tot. Refills 5, Maintenance, 05/29/20 13:54:00 EST, Route to Pharmacy Electronically, [facility], 159,cm, 05/24/20 8:57:00 EDT, [...] 12/06/19 8:34:00 EDT, Route to Pharmacy Electronically, [facility], 159, cm, 12/06/19 7:56:00 EDT, Height Start Date: 12/06/19 Stop Date: 11/30/20 Status: Ordered glipiZIDE 10 mg oral tablet 1 tablet = 10 mg, By Mouth, 2 times a day, # 180 tablet, 0 Refills, Maintenance, 08/27/20 8:20:00 EST, Tablet, [facility], 159, cm, 07/10/20 11:05:00 [...] 06/03/20 15:55:00 EST, Route to Pharmacy Electronically, [facility], 159, cm, 05/24/20 8:57:00 EDT, Height Start Date: 06/03/20 Status: Ordered Metoprolol Tartrate 25 mg oral tablet 1 tablet, By Mouth, 2 times a day, # 180 tablet, 0 Refills, Maintenance, 06/03/20 15:55:00 EST, [facility], 159, cm, 05/24/20 8:57:00 EDT, Height Start Date: 06/03/20 Status: Ordered ProAir HFA 90 mcg/inh inhalation aerosol with adapter 2, puffs, Inhalation, Every 6 hours, PRN, # 8.5 Gm, Refills 1, Tot. Refills 1, Maintenance, 02/01/19 10:58:44 EDT, Aerosol, Route to Pharmacy Electronically, [id number], [facility] Start Date: 02/01/19 Status: Ordered ReliOn/Novolin N 100 units/mL subcutaneous injection See Instructions, INJECT 18 UNITS SUBCUTANEOUSLY IN THE MORNING AND 9 UNITS IN THE EVENING, # 10 mL, 0 Refills, Maintenance, [facility], 159, cm, 07/10/20 11:05:00 EST, Height Start Date: 08/27/20 Status: Ordered sildenafil 25 mg oral tablet See Instructions, PRN Other, 1 tablet By Mouth Daily as needed prior to sexual intercourse, # 2 tablet, 11 Refills, Maintenance, 06/25/20 15:44:00 EST, Tablet, [facility], 159, cm, 06/25/20 9:48:00 EST, Height Start Date: 06/25/20 Status: Ordered terazosin 5 mg oral capsule 5 mg, 1, capsule, By Mouth, Daily at bedtime, # 90 capsule, Refills 1, Tot. Refills 1, Maintenance,04/15/20 14:45:00 EDT, Route to Pharmacy Electronically, [facility], 159, cm, 01/30/20 15:17:00 [...] u/s 2009 5colo 2012 nl, repeat 2022 87224 normal, repeat 2010 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 8Methacholine challenge test 2014 positive for asthma. 9Dr. Misa 2014 10Patient declines further PSA testing as of October 2015. Social History Social History Type Response Smoking Status Former smoker; Other : Smoking age 55. social smoker; entered on: 09/29/16 Sex Male
--- OUTSIDE RECORDS SUMMARY | 2024-05-22 07:12 | XMS_ITS | Continuity of Care Document ---
Author Organization [facility] Ponce lt Address [address] [place] [address]- Care Team Providers Care Chief Wheelage Clerk Name Role Phone Elyse LEE, Antony Ospina Primary Care Physician Encounter [facility] [place] Date(s): 01/07/23 - 01/14/23 [facility] Adult [address] [place] [address]- Attending Physician: Not on Staff, Attending MD Allergies, Adverse Reactions, Alerts No Known Allergies Immunizations Given and Recorded Vaccine Date Status Refusal Reason pneumococcal 20-valent conjugate vaccine 12/31/22 Given [id number] 12y+ bivalent booster vax 06/10/22 Given influenza [...] tetanus-diphtheria toxoids (Td) 07/26/98 Given 1Result Comment: [facility] # 2 scheduled for 10/02/20 2Admin [...] 10:29:00 EST, Powder, Route to Pharmacy Electronically, [id number], [facility], [facility],... Start Date: 08/27/22 Status: Ordered amLODIPine 2.5 mg oral tablet 1 tablet, By Mouth, Daily, # 90 tablet, 1 Refills, Maintenance, 07/13/22 15:46:00 EST, [facility], 160, cm, 06/10/22 10:45:00 EST, [...] tablet, 1 Refills, Maintenance, 09/08/22 14:54:00 EST, [facility], 160, cm, 07/30/22 9:45:00 EST, Height, 65, kg, 04/28/22 7:07:00 EDT, Dry Weight Start Date: 09/08/22 Status: Ordered ergocalciferol 11502 iu oral capsule 1, capsule, By Mouth, Every week, # 5 capsule, Refills 11, Route to Pharmacy Electronically, [facility], 159, cm, 12/29/21 10:39:00 EDT, Height Start Date: 01/07/22 Status: Ordered Farxiga 5 mg oral tablet 1 tablet = 5 mg, By Mouth, Daily, If Pt cannot afford we will try to get medication assist through the company., # 30 tablet, 3 Refills, Maintenance, 09/11/22 13:16:00 EST, Tablet, [facility], Partial fill upon [...] 05/27/22 18:05:00 EDT, Route to Pharmacy Electronically, [facility], 160, cm, 05/01/22 8:19:00 EDT, Height, 65, kg, 04/28/22 7:07:00 EDT, Dry Weight Start Date: 05/27/22 Status: Ordered glipiZIDE 10 mg oral tablet 1 tablet, By Mouth, 2 times a day, # 180 tablet, 3 Refills, Maintenance, 09/22/22 12:28:00 EST, [facility], 160, cm, 09/09/22 [...] 09/25/20 15:22:00 EST, Route to Pharmacy Electronically, [facility], Partial fill upon patient request if the prescription is for a schedule II opioid d... Start Date: 09/25/20 Status: Ordered Metoprolol Succinate ER 50 mg oral tablet, extended release 1 tablet, By Mouth, Daily, # 90 tablet, 3 Refills, Maintenance, 10/10/22 20:33:00 EDT, [facility], 160, cm, 09/24/22 9:03:00 EST, Height, 65, kg, 04/28/22 7:07:00 EDT, Dry Weight Start Date: 10/10/22 Status: Ordered montelukast 10 mg oral tablet See Instructions, Take 1 tablet by mouth once daily, # 30 tablet, Refills 5, Tot. Refills 5, Maintenance, 06/23/22 11:11:00 EST, Instructions Replace Required Details, Route to Pharmacy Electronically, [facility], 160, cm, 06/10/22 10:45:00... Start Date: 06/23/22 Status: Ordered NovoLOG Mix 70/30 subcutaneous suspension See Instructions, Patient wants bottle of insulin not pens. Inject SQ 15 units qam and 15 units qpm, # 10 mL, 5 Refills, Maintenance, 11/27/22 13:21:00 EDT, [facility], Partial fill upon patient request if the prescription is for a schedul... Start Date: 11/27/22 Status: Ordered ProAir HFA 90 mcg/inh inhalation aerosol with adapter 2, puffs, Inhalation, Every 6 hours, PRN, # 8.5 Gm, Refills 6, Tot. Refills 6, Maintenance, 11/10/21 10:21:00 EDT, Aerosol, Route to Pharmacy Electronically, [id number], [facility], 159, cm, 11/10/21 9:57:00 EDT, H... Start Date: 11/10/21 Status: Ordered terazosin 5 mg oral capsule 1, capsule, By Mouth, Daily at bedtime, # 90 capsule, Refills 0, Maintenance, 11/09/22 20:21:00 EDT, Route to Pharmacy Electronically, [facility], 160, cm, 10/16/22 8:32:00 EDT, Height, 65, kg, 04/28/22 7:07:00 EDT, Dry Weight Start Date: 11/09/22 Status: Ordered torsemide 20 mg oral tablet 2 tablet = 40 mg, By Mouth, Daily, # 180 tablet, 3 Refills, Maintenance, 09/09/22 14:25:00 EST, [facility], Partial fill upon [...] u/s 2009 5colo 2012 nl, repeat 2022 07599 normal, repeat 2010 7Status post CABG ??1. [...] Primary Care Member Role: PCP Address: Address: [address] [place] [address]- [place] Name: Silvia Lawrence RN Position: [facility] RN Member Role: Primary Care Nurse Name: Haether Pardo Position: [facility] TA Member Role: Lifetime Consulting Physician Name: Laura Chapin RN Position: [facility] RN Member Role: Primary Care Nurse Name: Lenora Martines NP Position: Reference Physician Member Role: Primary Care Nurse Address: Address: [address] [place] [id number]- [place] Name: Carrol Strauss RN Position: [facility] AMB Nurse Member Role: Primary Care Nurse Name: Claire Carr RN Position: S RN Member Role: Primary Care Nurse Name: Rachel Robledo RN Position: S RN Member Role: Primary Care Nurse Name: Richa Owens RN Position: S RN Member Role: Primary Care Nurse Care Team Related Persons Name: J LUIS HOFF Address: [address] [place] [address] Name: HARVINDER FRANCISCO Address: [address] [place] [address]
--- OUTSIDE RECORDS SUMMARY | 2024-05-22 07:12 | XMS_ITS | Continuity of Care Document ---
Author Organization [facility] Address [address] [place] [address]- Care Team Providers Care Turnaround Engineer Name Role Phone Antony Pappas MD Primary Care Physician Encounter [facility] [place] Date(s): 09/08/23 - 10/08/23 [facility] [address], [place] [address] Attending Physician: AdmWero kulkarni Admitting Physician: Admtr, Wero Referring Physician: Admtr, Ar8 Allergies, Adverse Reactions, [...] n pneumococcal 20-valent conjugate vaccine 12/31/22 Given [id number] 12y+ bivalent booster vax 06/10/22 Given SARS-CoV-2 [...] tetanus-diphtheria toxoids (Td) 07/26/98 Given 1Result Comment: [facility] # 2 scheduled for 10/02/20 2Admin Note: given in clinic 3Admin Note: vis given 4Admin Note: BIOMEDICAL RADHA 5Admin Note: Biomedical Radha [facility] 6Admin Note: given in clinic Medications amLODIPine 2.5 mg oral tablet 1 tablet, By Mouth, Daily, # 90 tablet, 1 Refills, Maintenance, 07/17/23 12:36:00 [facility], 160, cm, 05/17/23 [...] tablet, 1 Refills, Maintenance, 08/17/23 16:12:00 EST, [facility], 160, cm, 05/17/23 10:46:00 EDT, Height, 65, kg, 04/28/22 7:07:00 EDT, Dry Weight Start Date: 08/17/23 Status: Ordered ergocalciferol 85144 iu oral capsule 1, capsule, By Mouth, Every week, # 5 capsule, Refills 11, Tot. Refills 11, Maintenance, 03/09/23 11:38:00 EDT, Route to Pharmacy Electronically, [facility], 160, cm, 12/31/22 9:21:00 EDT,Height, 65, kg, 04/28/22 7:07:00 EDT, Dry Weight Start Date: 03/09/23 Status: Ordered Farxiga 5 mg oral tablet 1 tablet, By Mouth, Daily, # 90 tablet, 3 Refills, Maintenance, 06/02/23 9:27:00 EST, [facility], 160, cm, 05/17/23 10:46:00 [...] cm, 05/05/19 10:45:00 EDT, Height Start Date: 3/1/20 Status: Ordered gabapentin 300 mg oral capsule See Instructions, Take 1 capsule by mouth once daily at bedtime, # 90 capsule, Refills 3, Tot. Refills 3, Maintenance, 09/01/23 13:01:00 EST, Instructions Replace Required Details, Route to Pharmacy Electronically, [facility], 160, cm, ... Start Date: 09/01/23 Status: Ordered glipiZIDE 10 mg oral tablet See Instructions, Take 1 tablet by mouth twice daily, # 180 tablet, 0 Refills, Maintenance, 09/20/23 9:48:00 EST, [facility], 160, cm, 09/08/23 11:26:00 EST, Height, 63, kg, 09/08/23 10:05:00 EST, Dry Weight Start Date: 09/20/23 Status: Ordered Metoprolol Succinate ER 50 mg oral tablet, extended release 1 tablet, By Mouth, Daily, # 90 tablet, 0 Refills, Maintenance, 09/27/23 7:45:00 EST, [facility], 160, cm, 09/08/23 11:26:00 EST, Height, 63, kg, 09/08/23 10:05:00 EST, Dry Weight Start Date: 09/27/23 Status: Ordered montelukast 10 mg oral tablet 1, tablet, By Mouth, Daily, # 30 tablet, Refills 5, Tot. Refills 5, Maintenance, 06/28/23 10:39:00 EST, Route to Pharmacy Electronically, [facility], 160, cm, 05/17/23 10:46:00 EDT, Height, 65, kg, 04/28/22 7:07:00 EDT, Dry Weight Start Date: 06/28/23 Status: Ordered [place], 31 G x 8 mm BD Ultra [...] 10:21:00 EDT, Aerosol, Route to Pharmacy Electronically, [id number], [facility], 159, cm, 11/10/21 9:57:00 EDT, H... Start Date: 11/10/21 Status: Ordered torsemide 20 mg oral tablet 2 tablet, By Mouth, Daily, # 180 tablet, 1 Refills, Maintenance, 08/26/23 21:25:00 EST, [facility], 160, cm, 05/17/23 10:46:00 [...] 5 each, 5 Refills, Maintenance, 09/30/23 14:38:00 [facility], Partial fill upon [...] u/s 2009 5colo 2012 nl, repeat 2022 69577 normal, repeat 2010 7Status post CABG ??1. [...] Pt will not have BS's < 70 (shelter) Start Jeronimo e:03/12/23 End Date:06/11/23 Status:Met Progression:Not Met Patient Care team information Care Team Personnel Name: Eliza Alejandre RN Position: [facility] RN Member Role: Primary Care Nurse Name: Breanna Moreno Position: [facility] Outreach Member Role: Lifetime Consulting Physician Name: Antony Pappas MD Position: [facility] Physician - Primary Care Member Role: PCP Address: Address: [address] [place] [address]- [place] Name: Silvia Lawrence RN Position: [facility] RN Member Role: Primary Care Nurse Name: Sahra (Hina) Sarah Position: [facility] entry level accounting clerk Member Role: Email Marketing Coordinator Name: Laura Chapin RN Position: [facility] RN Member Role: Primary Care Nurse Name: Lenora Martines NP Position: Reference Physician Member Role: Primary Care Nurse Address: Address: [address] [place] [address]- [place] Name: Carrol Strauss RN Position: [facility] AMB Nurse Member Role: Primary Care Nurse Name: Claire Carr RN Position: S RN Member Role: Primary Care Nurse Name: Rachel Robledo RN Position: S RN Member Role: Primary Care Nurse Name: Richa Owens RN Position: S RN Member Role: Primary Care Nurse Care Team Related Persons Name: J LUIS HOFF Address: home [address] [place] [address] Name: HARVINDER FRANCISCO Address: home [address] [place] [address]
--- OUTSIDE RECORDS SUMMARY | 2024-05-22 07:12 | XMS_ITS | Continuity of Care Document ---
Author Organization [facility] ter Address [address] [place] [address]- Care Team Providers Care Career Developer Name Role Phone Elyse LEE, Antony Ospina Primary Care Physician [phone] Encounter [facility] Date(s): 04/28/22 - 04/28/[address] [address] Discharge Disposition: A-D/C Home Attending Physician: Mi Penaloza MD Admitting Physician: Mi Penaloza MD Referring Physician: Mi Penaloza MD Allergies, Adverse Reactions, Alerts No Known [...] 3Admin Note: vis given 4Admin Note: BIOMEDICAL EDI 5Admin Note: [facility]ical Edi [facility] 6Admin Note: given in clinic Medications Advair Diskus 250 mcg-50 mcg inhalation powder 1, puffs, Inhalation, 2 times a day, Give 3 month supply, # 3 each, Refills 3, Tot. Refills 3, Maintenance, 09/26/21 10:53:00 EST, Powder, Route to Pharmacy Electronically, [id number], [facility], 159,... Start Date: 09/26/21 Status: Ordered [...] tablet, 3 Refills,Maintenance, 03/20/22 12:20:00 EDT, Tablet, [facility], Partial fill upon patient request if the prescription is for a schedule II opioid... Start Date: 03/20/22 Stop Date: 07/18/22 Status: Ordered ergocalciferol 70151 iu oral capsule 1, capsule, By Mouth, [...] 09/25/20 15:22:00 EST, Route to Pharmacy Electronically, [facility], Partial fill upon patient request if the prescription is for a schedule II opioid d... Start Date: 09/25/20 Status: Ordered ProAir HFA 90 mcg/inh inhalation aerosol with adapter 2, puffs, Inhalation, Every 6 hours, PRN, # 8.5 Gm, Refills 6, Tot. Refills 6, Maintenance, 11/10/21 10:21:00 EDT, Aerosol, Route to Pharmacy Electronically, [id number], [facility], 159, cm, [...] 11/10/21 10:21:00 EDT, Route to Pharmacy Electronically, [facility], Partial fill upon [...] tablet, 1 Refills, Maintenance, 03/20/22 12:20:00 EDT, [facility], Partial fill upon patient [...] u/s 2009 5colo 2012 nl, repeat 2022 60195 normal, repeat 2010 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 8Methacholine challenge test 2014 positive for asthma. 9DrAngy Bynum 2014 10Patient declines further PSA testing as of October 2015. Vital Signs Most recent to oldest [Reference Range]: 1 Height 160 cm (04/28/22 7:07 AM) Weight 65 kg (04/28/22 7:07 AM) Oxygen Saturation [94-100 %] 99 % (04/28/22 6:33 AM) Pulse Rate [55-90 bpm] 61 bpm (04/28/22 6:33 AM) Blood Pressure [90-138/55-84 mm Hg] 135/ 55mm Hg (04/28/22 6:33 AM) Respiratory Rate [16-30 br/min] 16 br/mi n (04/28/22 6:33 AM) Temperature [96.8-100.4 DegF] 98.0 DegF (04/28/22 6:33 AM) Mode of Delivery (Oxygen) Room air (04/28/22 6:33 AM) Blood pressure sites Arm, right (04/28/22 6:33 AM) Temperature Route Temporal (04/28/22 6:33 AM) Dry Weight 65 kg (04/28/22 7:07 AM) Social History Social History Type Response Tobacco Other: quit age 52, smoked since age 22, 1/2 ppd. Sex Patient Care team information Personnel Name: Elyse LEE, Antony Ospina Address: Address: [address] [place] [address]
--- OUTSIDE RECORDS SUMMARY | 2024-05-22 07:12 | XMS_ITS | Continuity of Care Document ---
Author Organization [facility] Address [address] [place] [address]- Care Team Providers Care Level Vial Setter Name Role Phone Antony Pappas MD Primary Care Physician Encounter [facility] Date(s): 02/25/22 - 03/27/22 [facility] [address] [place] [address]- Attending Physician: Wero Gayle Admitting Physician: Wero [...] tetanus-diphtheria toxoids (Td) 07/26/98 Given 1Result Comment: [facility] # 2 scheduled for 10/02/20 2Admin Note: given in clinic 3Admin Note: vis given 4Admin Note: BIOMEDICAL RADHA 5Admin Note: [facility]ical [facility] 6Admin Note: given in clinic Medications Advair Diskus 250 mcg-50 mcg inhalation powder 1, puffs, Inhalation, 2 times a day, Give 3 month supply, # 3 each, Refills 3, Tot. Refills 3, Maintenance, 09/26/21 10:53:00 EST, Powder, Route to Pharmacy Electronically, [id number], [facility], 159,... Start Date: 09/26/21 Status: Ordered amLODIPine 2.5 mg oral tablet 1 tablet, By Mouth, Daily, # 90 tablet, 1 Refills, [facility], 159, cm, 11/26/21 11:06:00 EDT, Height Start Date: 12/09/21 Status: Ordered aspirin 81 mg oral delayed release tablet 81 mg, 1, tablet, By Mouth, Daily, # 30 tablet, Refills 0, Maintenance, 09/07/18 15:22:30 EST Start Date: 09/07/18 Status: Ordered atorvastatin 80 mg oral tablet 1 tablet, By Mouth, Daily, # 90 tablet, 1 Refills, Maintenance, 02/14/22 11:19:00 EDT, [facility], 160, cm, 02/02/22 8:07:00 [...] 3 Refills, Maintenance, 03/20/22 12:20:00 EDT, Tablet, [facility], Partial fill upon patient request if the prescription is for a schedule II opioid drug., 1 tablet By Mouth 2 times a day,x... Start Date: 03/20/22 Stop Date: 07/18/22 Status: Ordered ergocalciferol 41399 iu oral capsule 1, capsule, By Mouth, Every week, # 5 capsule, Refills 11, Route to Pharmacy Electronically, [facility], 159, cm, 12/29/21 10:39:00 [...] capsule, Refills 3, Route to Pharmacy Electronically, [facility], 159, cm, 02/20/21 6:56:00 EDT, Height Start Date: 05/20/21 Status: Ordered glipiZIDE 10 mg oral tablet 1 tablet, By Mouth, 2 times a day, # 180 tablet, 1 Refills, [facility], 159, cm, 11/21/21 11:16:00 [...] 09/25/20 15:22:00 EST, Route to Pharmacy Electronically, [facility], Partial fill upon patient request if the prescription is for a schedule II opioid d... Start Date: 09/25/20 Status: Ordered ProAir HFA 90 mcg/inh inhalation aerosol with adapter 2, puffs, Inhalation, Every 6 hours, PRN, # 8.5 Gm, Refills 6, Tot. Refills 6, Maintenance, 11/10/21 10:21:00 EDT, Aerosol, Route to Pharmacy Electronically, [id number], [facility], 159, cm, 11/10/21 9:57:00 EDT, H... Start Date: 11/10/21 Status: Ordered ReliOn/Novolin N 100 units/mL subcutaneous injection See Instructions, INJECT 18 UNITS SUBCUTANEOUSLY IN THE MORNING AND 9 IN THE EVENING, # 10 mL, 5 Refills, [facility], 159, cm, 09/04/21 13:27:00 EST, Height Start Date: 10/06/21 Status: Ordered Singulair 10 mg oral tablet 10 mg, 1, tablet, By Mouth, Daily, # 30 tablet, Refills 6, Tot. Refills 6, Maintenance, 11/10/21 10:21:00 EDT, Route to Pharmacy Electronically, [facility], Partial fill upon patient request if the prescription is for a schedule II opioid d... Start Date: 11/10/21 Status: Ordered terazosin 5 mg oral capsule 1, capsule, By Mouth, Daily at bedtime, # 90 capsule, Refills 1, Route to Pharmacy Electronically, [facility], 160, cm, 01/30/22 5:01:00 EDT, Height Start Date: 02/01/22 Status: Ordered torsemide 40 mg oral tablet 1 tablet = 40 mg, By Mouth, Daily, # 30 tablet, 1 Refills, Maintenance, 03/20/22 12:20:00 EDT, [facility], Partial fill upon patient request [...] u/s 2009 5colo 2012 nl, repeat 2022 58501 normal, repeat 2010 7Status post CABG ??1. 2016. 8Methacholine challenge test 2014 positive for asthma. 9Dr. Misa 2014 10Patient declines further PSA testing as of October 2015. Social History Social History Type Response Tobacco Other: quit age 52, smoked since age 22, 1/2 ppd. Sex Care Team Personnel Name: Elyse LEE, Antony Ospina Address: [address] [place] [address]
--- OUTSIDE RECORDS SUMMARY | 2024-05-22 07:12 | XMS_ITS | Continuity of Care Document ---
Author Organization [facility] ter Address [address] [place] [address]- Care Team Providers Care Radio Assembler Name Role Phone Antony Pappas MD Primary Care Physician [phone] Encounter [facility] [place] Date(s): 03/15/22 - 03/20/[address] [address]- Encounter Diagnosis CAD (coronary artery disease)(Discharge Diagnosis) - 03/16/22 Aortic stenosis(Discharge Diagnosis) - 03/16/22 CHF (congestive heart failure)(Discharge Diagnosis) - 03/16/22 Chronic renal disease, stage III(Discharge Diagnosis) - 03/16/22 H/O aortic valve replacement(Discharge Diagnosis) - 03/16/22 Hx of CABG(Discharge Diagnosis) - 03/16/22 Discharge Disposition: A-Transfer VNA/Home Health Attending Physician: Phani Lema MD Admitting Physician: Andria David DO Referring Physician: Not on Staff, Referring MD [...] tetanus-diphtheria toxoids (Td) 07/26/98 Given 1Result Comment: [facility] # 2 scheduled for 10/02/20 2Admin Note: given in clinic 3Admin Note: vis given 4Admin Note: BIOMEDICAL EDI 5Admin Note: [facility] 6Admin Note: given in clinic Medications Advair Diskus 250 mcg-50 mcg inhalation powder 1, puffs, Inhalation, 2 times a day, Give 3 month supply, # 3 each, Refills 3, Tot. Refills 3, Maintenance, 09/26/21 10:53:00 EST, Powder, Route to Pharmacy Electronically, [id number], [facility], 159,... Start Date: 09/26/21 Status: Ordered amLODIPine 2.5 mg oral tablet 1 tablet, By Mouth, Daily, # 90 tablet, 1 Refills, [facility], 159, cm, 11/26/21 11:06:00 EDT, Height Start Date: 12/09/21 Status: Ordered aspirin 81 mg oral delayed release tablet 81 mg, 1, tablet, By Mouth, Daily, # 30 tablet, Refills 0, Maintenance, 09/07/18 15:22:30 EST Start Date: 09/07/18 Status: Ordered atorvastatin 80 mg oral tablet 1 tablet, By Mouth, Daily, # 90 tablet, 1 Refills, Maintenance, 02/14/22 11:19:00 EDT, [facility], 160, cm, 02/02/22 8:07:00 [...] 3 Refills, Maintenance, 03/20/22 12:20:00 EDT, Tablet, [facility], Partial fill upon patient request if the prescription is for a schedule II opioid drug., 1 tablet By Mouth 2 times a day,x... Start Date: 03/20/22 Stop Date: 07/18/22 Status: Ordered ergocalciferol 60471 iu oral capsule 1, capsule, By Mouth, Every week, # 5 capsule, Refills 11, Route to Pharmacy Electronically, [facility], 159, cm, 12/29/21 10:39:00 [...] capsule, Refills 3, Route to Pharmacy Electronically, [facility], 159, cm, 02/20/21 6:56:00 EDT, Height Start Date: 05/20/21 Status: Ordered glipiZIDE 10 mg oral tablet 1 tablet, By Mouth, 2 times a day, # 180 tablet, 1 Refills, [facility], 159, cm, 11/21/21 11:16:00 [...] 10:21:00 EDT, Aerosol, Route to Pharmacy Electronically, [id number], [facility], 159, cm, 11/10/21 9:57:00 EDT, H... Start Date: 11/10/21 Status: Ordered ReliOn/Novolin N 100 units/mL subcutaneous injection See Instructions, INJECT 18 UNITS SUBCUTANEOUSLY IN THE MORNING AND 9 IN THE EVENING, # 10 mL, 5 Refills, [facility], 159, cm, 09/04/21 13:27:00 EST, Height Start Date: 10/06/21 Status: Ordered Singulair 10 mg oral tablet 10 mg, 1, tablet, By Mouth, Daily, # 30 tablet, Refills 6, Tot. Refills 6, Maintenance, 11/10/21 10:21:00 EDT, Route to Pharmacy Electronically, [facility], Partial fill upon patient request if the prescription is for a schedule II opioid d... Start Date: 11/10/21 Status: Ordered terazosin 5 mg oral capsule 1, capsule, By Mouth, Daily at bedtime, # 90 capsule, Refills 1, Route to Pharmacy Electronically, [facility], 160, cm, 01/30/22 5:01:00 EDT, Height Start Date: 02/01/22 Status: Ordered torsemide 40 mg oral tablet 1 tablet = 40 mg, By Mouth, Daily, # 30 tablet, 1 Refills, Maintenance, 03/20/22 12:20:00 EDT, [facility], Partial fill upon patient request [...] u/s 2009 5colo 2012 nl, repeat 2022 [address]31 normal, repeat 2010 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 8Methacholine challenge test 2014 positive for asthma. 9DrAngy Bynum 2014 10Patient declines further PSA testing as of October 2015. Diagnosis Diagnosis Type Effective Dates Health Status Clinical Service Informant CAD (coronary artery disease) Discharge Diagnosis 03/16/22 Aortic stenosis Discharge Diagnosis 03/16/22 CHF (congestive heart failure) Discharge Diagnosis 03/16/22 Chronic renal disease, stage III Discharge Diagnosis 03/16/22 H/O aortic valve replacement Discharge Diagnosis 03/16/22 Hx of CABG Discharge Diagnosis 03/16/22 Results Orders for Microbiology Reports Name Date Blood Culture 03/15/22 Blood Culture #2 03/15/22 Microbiology Reports TEST:Blood Culture STATUS:Unauthenticated BODY SITE: SOURCE:Blood COLLECTED DATE/TIME:03/15/22 8:25 PM Blood Culture SPECIMEN DESCRIPTION : BLOOD NO SITE SPECIAL REQUESTS : NONE CULTURE : NO GROWTH 4 DAYS REPORT STATUS : PRELIMINARY REPORT TEST:Blood Culture, Second Order STATUS:Unauthenticated BODY SITE: SOURCE:Blood COLLECTED DATE/TIME:03/15/22 8:25 PM Blood Culture, Second Order SPECIMEN DESCRIPTION : BLOOD NO SITE SPECIAL REQUESTS : NONE CULTURE : NO GROWTH 4 DAYS REPORT STATUS : PRELIMINARY REPORT Vital Signs Most recent to oldest [Reference Range]: 1 2 3 Height 160 cm (03/20/22 12:35 PM) 160 cm (03/20/22 8:22 AM) 160 cm (03/20/22 2:31 AM) Weight 75.5 kg (03/20/22 2:31 AM) 80.3 kg (03/19/22 2:00 AM) 82.3 kg (03/17/22 7:45 AM) Oxygen Saturation [94-100 %] 96 % (03/20/22 12:35 PM) 97 % (03/20/22 8:22 AM) 92 % *L* (03/20/22 2:31 AM) Pulse Rate [55-90 bpm] 77 bpm (03/20/22 12:35 PM) 77 bpm (03/20/22 8:22 AM) 76 bpm (03/20/22 2:31 AM) Body Mass Index [18.5-24.99] 29.49 *H* (03/20/22 2:31 AM) 32.15 *>HHI* (03/16/22 1:13 AM) 32.11 *>HHI* (03/15/22 5:36 PM) Blood Pressure [90-138/55-84 mm Hg] 133/74mm Hg (03/20/22 12:35 PM) 135/64mm Hg (03/20/22 8:22 AM) 118/52mm Hg (03/20/22 2:31 AM) Respiratory Rate [16-30 br/min] 20 br/min (03/20/22 12:35 PM) 20 br/min (03/20/22 8:22 AM) 18 br/min (03/20/22 2:31 AM) Temperature [96.8-100.4 DegF] 97.4 DegF (03/20/22 12:35 PM) 97.6 DegF (03/20/22 8:22 AM) 98.5 DegF (03/20/22 2:31 AM) Liters per Minute 2 L/min (03/18/22 3:55 PM) 2 L/min (03/18/22 2:00 AM) 2 L/min (03/17/22 9:00 PM) Mode of Delivery (Oxygen) Room air (03/20/22 12:35 PM) Room air (03/20/22 8:22 AM) Room air (03/20/22 2:31 AM) Blood pressure sites Arm, left (03/20/22 12:35 PM) Arm, left (03/20/22 8:22 AM) Arm, left (03/20/22 2:31 AM) Temperature Route Oral (03/20/22 12:35 PM) Oral (03/20/22 8:22 AM) Oral (03/20/22 2:31 AM) Dry Weight 82.2 kg (03/15/22 5:36 PM) Weight Obtained Via Bed scale (03/20/22 2:31 AM) Bed scale (03/16/22 1:13 AM) Social History Social History Type Response Tobacco Other: quit age 52, smoked since age 22, 1/2 ppd. Sex Care Team Personnel Name: Elyse LEE, Antony Ospina Address: [address] [place] [address] [place] [address]
--- OUTSIDE RECORDS SUMMARY | 2024-05-22 07:12 | XMS_ITS | Continuity of Care Document ---
Author Organization [facility] Address [address] [place] [address]- Care Team Providers Care Electric Appliance Installer Name Role Phone Antony Pappas MD Primary Care Physician Encounter [facility] Date(s): 01/30/20 - 02/29/20 [facility] Adult [address] [place] [address]- [facility] Allergies, Adverse Reactions, Alerts Substance Reaction Severity [...] Note: BIOMEDICAL RADHA 4Admin Note: Biomedical Radha [facility] 5Admin Note: given in clinic Medications aspirin 81 mg oral delayed release tablet 81 mg, 1, tablet, By Mouth, Daily, # 30 tablet, Refills 0, Maintenance, 09/07/18 15:22:30 EST Start Date: 09/07/18 Status: Ordered atorvastatin 80 mg oral tablet 1 tablet = 80 mg, By Mouth, Daily, # 90 tablet, 1 Refills, Maintenance, 01/10/20 15:14:00 EDT, Tablet, [facility], 159, cm, 01/05/20 10:36:00 EDT, Height Start Date: 01/10/20 Status: Ordered Breo Ellipta 100 mcg-25 mcg/inh inhalation powder 1 puffs, Inhalation, Daily, In place of QVAR 90 day supply, # 3 each, 1 Refills, Maintenance, 09/27/19 10:26:00 EST, Powder, [facility], 1 puffs Inhalation Daily,Instr:In [...] 12/06/19 8:34:00 EDT, Route to Pharmacy Electronically, [facility], 159, cm, 12/06/19 7:56:00 EDT, Height Start Date: 12/06/19 Stop Date: 11/30/20 Status: Ordered glipiZIDE 10 mg oral tablet 1 tablet = 10 mg, By Mouth, 2 times a day, # 180 tablet, 1 Refills, Maintenance, 08/29/19 11:00:00 EST, Tablet, [facility], 159, cm, 05/05/19 10:45:00 [...] 01/30/20 15:07:00 EDT, Route to Pharmacy Electronically, [facility], 159, cm, 01/24/20 15:11:00 EDT, Height Start Date: 01/30/20 Status: Ordered lisinopril 20 mg oral tablet 20 mg, 1, tablet, By Mouth, Daily, # 30 tablet, Refills 0, Tot. Refills 0, Maintenance, 11/01/18 13:59:18 EDT, Route to Pharmacy Electronically, [id number], [id number] Start Date: 11/01/18 Status: Ordered Metoprolol Tartrate 25 mg oral tablet 1 tablet, By Mouth, 2 times a day, # 180 tablet, 0 Refills, Maintenance, 02/29/20 7:24:00 EDT, [facility], 159, cm, 01/30/20 15:17:00 EDT, Height Start Date: 02/29/20 Status: Ordered ProAir HFA 90 mcg/inh inhalation aerosol with adapter 2, puffs, Inhalation, Every 6 hours, PRN, # 8.5 Gm, Refills 1, Tot. Refills 1, Maintenance, 02/01/19 10:58:44 EDT, Aerosol, Route to Pharmacy Electronically, [id number], [facility] Start Date: 02/01/19 Status: Ordered ReliOn/Novolin N 100 units/mL subcutaneous injection See Instructions, INJECT 18 UNITS SUBCUTANEOUSLY IN THE MORNING AND 9 IN THE EVENING, # 10 mL, 2 Refills, Maintenance, 01/13/20 15:26:00 EDT, [facility], 90 day, 159, cm, 01/05/20 10:36:00EDT, Height Start Date: 01/13/20 Status: Ordered sildenafil 25 mg oral tablet See Instructions, PRN Other, 1 tablet By Mouth Daily as needed prior to sexual intercourse, # 2 tablet, 11 Refills, Maintenance, 01/24/20 15:13:00 EDT, Tablet, [facility], 159, cm, 01/24/20 15:11:00 EDT, Height Start Date: 01/24/20 Status: Ordered terazosin 5 mg oral capsule 5 mg, 1, capsule, By Mouth, Daily at bedtime, # 90 capsule, Refills 0, Tot. Refills 0, Maintenance,12/31/19 10:28:00 EDT, Route to Pharmacy Electronically, [facility], 159, cm, 12/06/19 7:56:00 EDT, Height Start Date: 12/31/19 Status: Ordered Vitamin D 03906 iu oral capsule 50,000 International_Units, 1, capsule, By Mouth, Every week, # 5 capsule, Refills 11, Tot. [id number], Maintenance, 05/05/19 10:57:40 EDT, Route to Pharmacy Electronically, [id number], [facility] Start Date: 05/05/19 Status: [...] u/s 2009 5colo 2012 nl, repeat 2022 18835 normal, repeat 2010 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 8Methacholine challenge test 2014 positive for asthma. 9Dr. Misa 2014 10Patient declines further PSA testing as of October 2015. Social History Social History Type Response Smoking Status Former smoker; Other : Smoking age 55. social smoker; entered on: 09/29/16 Sex Male
--- OUTSIDE RECORDS SUMMARY | 2024-05-22 07:12 | XMS_ITS | Continuity of Care Document ---
Author Organization [facility] Address [address] [place] [address]- Care Team Providers Care Coupon Collection Clerk Name Role Phone Antony Pappas MD Primary Care Physician [place] [facility] [place] Date(s): 04/19/24 - 04/26/24 [facility] Adult [address] [place] [address]- Attending Physician: Antony Pappas MD Allergies, Adverse [...] n pneumococcal 20-valent conjugate vaccine 12/31/22 Given [id number] 12y+ bivalent booster vax 06/10/22 Given SARS-CoV-2 [...] tetanus-diphtheria toxoids (Td) 07/26/98 Given 1Result Comment: [facility] # 2 scheduled for 10/02/20 2Admin Note: given in clinic 3Admin Note: vis given 4Admin Note: BIOMEDICAL RADHA 5Admin Note: Biomedical Radha [facility] 6Admin Note: given in clinic Medications aspirin 81 mg oral delayed release tablet 81 mg, 1, tablet, By Mouth, Daily in AM, # 30 tablet, Refills 0, Maintenance, 09/07/18 15:22:30 EST Start Date: 09/07/18 Status: Ordered atorvastatin 80 mg oral tablet 1 tablet, By Mouth, Daily, # 90 tablet, 0 Refills, Maintenance, 03/02/24 16:11:00 EDT, [facility], 160, cm, 01/20/24 8:40:00 [...] Weight Start Date: 03/21/24 Status: Ordered ergocalciferol 29767 iu oral capsule See Instructions, Take 1 capsule by mouth once a week, # 5 capsule, Refills 11, Tot. Refills 11, Maintenance, 03/10/24 8:42:00 EDT, Instructions Replace Required Details, Route to Pharmacy Electronically, [facility], 160, cm, 03/10/24 8:33:... Start Date: 03/10/24 Status: Ordered Farxiga 10 mg oral tablet 1 tablet = 10 mg, By Mouth, Daily, Replaces 5mg daily now should be 10mg daily., # 30 tablet, 5 Refills, Maintenance, 01/21/24 11:14:00 EDT, Tablet, [facility], Partial fill upon patient [...] Replace Required Details, Route to Pharmacy Electronically, [facility], 160, cm, 0... Start Date: 09/01/23 Status: Ordered glipiZIDE 10 mg oral tablet 1 tablet, By Mouth, 2 times a day, # 180 tablet, 1 Refills, Maintenance, 12/15/23 14:06:00 EDT, [facility], 160, cm, 09/28/23 8:15:00 EST, Height, 63, kg, 09/08/23 10:05:00 EST, Dry Weight Start Date: 12/15/23 Status: Ordered hydrALAZINE 25 mg oral tablet 25 mg, 1, tablet, By Mouth, 3 times a day, New per [facility] d/c, # 90 tablet, Refills 0, Maintenance, 04/11/24 8:53:00 EDT, Partial fill upon patient request if the prescription is for a schedule II opioid drug. Start Date: 04/11/24 Status: Ordered Imdur 30 mg oral tablet, extended release 1, tablet, By Mouth, Daily in AM, Replaces amlodipine 2.5mg per [facility] d/c instructions, # 30 tablet, Refills [...] 1, tablet, By Mouth, Daily, Decreased by [facility] d/c from 75mg to 50mg daily, Refills 0, Maintenance, 04/11/24 8:56:00 EDT, Partial fill upon patient request if the prescription is for a schedule II opioid drug. Start Date: 04/11/24 Status: Ordered montelukast 10 mg oral tablet 1, tablet, By Mouth, Daily, # 30 tablet, Refills 5, Maintenance, 12/22/23 14:09:00 EDT, Route to Pharmacy Electronically, [facility], 160, cm, 09/28/23 8:15:00 EST, Height, 63, kg, 09/08/23 10:05:00 EST, Dry Weight Start Date: 12/22/23 Status: Ordered Pen [place], 31 G x 8 mm BD Ultra [...] 9:24:00 EDT, Aerosol, Route to Pharmacy Electronically, [id number], [facility], 160, cm, 01/20/24 8:40:00 [...] 1 each, 5 Refills, Maintenance, 11/09/23 10:49:00 ED, [facility], Partial fill upon patient request if the prescription is for a schedule II opioid drug., 1 puffs Inhalation Daily,Instr:1 month... 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 8Methacholine challenge test 2014 positive for asthma. 9Dr. Batroseanna 2014 10Patient declines further PSA testing as of October 2015. Vital Signs Most recent to oldest [Reference Range]: 1 Height 160 cm (04/19/24 10:17 AM) Weight 64.1 kg (04/19/24 10:17 AM) Oxygen Saturation [94-100 %] 97 % (04/19/24 10:17 AM) Pulse Rate [55-90 bpm] 53 bpm *L* (04/19/24 10:17 AM) Body Mass Index [18.5-24.99 kg/m2] 25.04 kg/m2 *H* (04/19/24 10:17 AM) Blood Pressure [90-138/55-84 mm Hg] 110/ 56mm Hg (04/19/24 10:17 AM) Mode of Delivery (Oxygen) Room air (04/19/24 10:17 AM) Blood pressure sites Arm, left (04/19/24 10:17 AM) Weight Obtained Via Standing scale (04/19/24 10:17 AM) Social History Social History Type Response Smoking Status Former smoker, quit more than 30 days ago entered on: 09/08/23 Sex Goals I Will Take My Medications as Directed by My Pro vider Start Date:12/02/23 End Date: Status:Met Progression:Not Met Complications of DM Avoided Start Date:05/07/23 End Date: Status:Met Progression:Not Met 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) Start Jeronimo e:03/12/23 End Date:06/11/23 Status:Met Progression:Not Met Self Manages Postprandial Gl ucose to Less than 180 mg/dl Start Date:03/12/23 End Date:06/11/23 Status:Met Progression:Met Patient Care team information Care Team Personnel Name: Eliza Alejandre RN Position: [facility] RN Member Role: Primary Care Nurse Name: Breanna Moreno Position: [facility] Outreach Member Role: Lifetime Consulting Physician Name: Antony Pappas MD Position: [facility] Physician - Primary Care Member Role: PCP Address: Address: [address] [place] [address]- Name: Silvia Lawrence RN Position: [facility] RN Member Role: Primary Care Nurse Name: Sahra (Baytrisha) Sarah Position: [facility] freelance patternmaker Member Role: Slicing Machine Operator/Tender Name: Shiloh Otto RN, Laura Position: [facility] RN Member Role: Primary Care Nurse Name: Lenora Martines NP Position: Reference Physician Member Role: Primary Care Nurse Address: Address: [address] [place] [address] [facility] [place], [place] [address] Name: Carrol Strauss RN Position: [facility] AMB Nurse Member Role: Primary Care Nurse Name: Claire Carr RN Position: [facility] RN Member Role: Primary Care Nurse Name: Rachel Robledo RN Position: S RN Member Role: Primary Care Nurse Name: Richa Owens RN Position: S RN Member Role: Primary Care Nurse Care Team Related Persons Name: J LUIS HOFF Address: home [address] [place] [address] Name: HARVINDER FRANCISCO Address: home [address] [place] [address]
--- OUTSIDE RECORDS SUMMARY | 2024-05-22 07:12 | XMS_ITS | Continuity of Care Document ---
Author Organization [facility] Address [address] [place] [address]- Care Team Providers Care Impregnator And Drier Helper Name Role Phone Antony Pappas MD Primary Care Physician [place] [facility] [place]/23 [facility] [place] [address] [place] [address]- Attending Physician: Antony Pappas MD Allergies, Adverse [...] n pneumococcal 20-valent conjugate vaccine 12/31/22 Given [id number] 12y+ bivalent booster vax 06/10/22 Given SARS-CoV-2 [...] (Td) 07/26/98 Given 1Result Comment: [facility] # 2 scheduled for 10/02/20 2Admin Note: given in clinic 3Admin Note: vis given 4Admin Note: BIOMEDICAL RADHA 5Admin Note: Biomedical Radha [facility] 6Admin Note: given in clinic Medications amLODIPine 2.5 mg oral tablet 1 tablet, By Mouth, Daily, # 90 tablet, 1 Refills, Maintenance, 07/17/23 12:36:00 EST, [facility], 160, cm, 05/17/23 10:46:00 [...] tablet, 1 Refills, Maintenance, 08/17/23 16:12:00 EST, [facility], 160, cm, 05/17/23 10:46:00 EDT, Height, 65, kg, 04/28/22 7:07:00 EDT, Dry Weight Start Date: 08/17/23 Status: Ordered ergocalciferol 80571 iu oral capsule 1, capsule, By Mouth, [...] tablet, 3 Refills, Maintenance, 06/02/23 9:27:00 EST, [facility], 160, cm, 05/17/23 10:46:00 [...] Replace Required Details, Route to Pharmacy Electronically, [facility], 160, cm, 020... Start Date: 09/01/23 Status: Ordered glipiZIDE 10 [...] 06/28/23 10:39:00 EST, Route to Pharmacy Electronically, [facility], 160, cm, 05/17/23 10:46:00 EDT, Height, 65, kg, 04/28/22 7:07:00 EDT, Dry Weight Start Date: 06/28/23 Status: Ordered Pen [place], 30 G x 8 mm BD Ultra [...] 10:21:00 EDT, Aerosol, Route to Pharmacy Electronically, [id number], [facility], 159, cm, [...] tablet, 1 Refills, Maintenance, 08/26/23 21:25:00 EST, [facility], 160, cm, 05/17/23 10:46:00 [...] each, 5 Refills, Maintenance, 03/22/23 15:46:00 EDT, [facility], Partial [...] u/s 2009 5colo 2012 nl, repeat 2022 99361 normal, repeat 2010 7Status post CABG ??1. 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) Start Jeronimo e:03/12/23 End Date:06/11/23 Status:Met Progression:Not Met Patient Care team information Care Team Personnel Name: Eliza Alejandre RN Position: [facility] RN Member Role: Primary Care Nurse Name: Breanna Moreno Position: [facility] Outreach Member Role: Lifetime Consulting Physician Name: Antony Pappas MD Position: [facility] Physician - Primary Care Member Role: PCP Address: Address: [address] [place] [address]- Name: Silvia Lawrence RN Position: [facility] RN Member Role: Primary Care Nurse Name: Sahra (Baytrisha) Sarah Position: [facility] mouthpiece maker Member Role: Pot Fisher Name: Laura Chapin RN Position: [facility] RN Member Role: Primary Care Nurse Name: Lenora Martines NP Position: Reference Physician Member Role: Primary Care Nurse Address: Address: [address] [place] [address]- Name: Carrol Strauss RN Position: [facility] AMB Nurse Member Role: Primary Care Nurse Name: Claire Carr RN Position: [facility] RN Member Role: Primary Care Nurse Name: Rachel Robledo RN Position: S RN Member Role: Primary Care Nurse Name: Richa Owens RN Position: [facility] RN Member Role: Primary Care Nurse Care Team Related Persons Name: LUIS EDUARDO J LUIS Address: home [address] [place] [address] Name: HARVINDER FRANCISCO Address: home [address] [place] [address]
--- OUTSIDE RECORDS SUMMARY | 2024-05-22 07:12 | XMS_ITS | Continuity of Care Document ---
Author Organization [facility] Address [address] [place] [address]- Care Team Providers Care Operations Expert Name Role Phone Elyse LEE, Antony Ospina Primary Care Physician Encounter [facility] [place] [facility] R [id number] Date(s): 09/08/23 - 09/15/23 [facility] [address] [place], [place] [address] Attending Physician: Not on Staff, Attending MD Referring Physician: Yefri LEE, Jasmeet Otero Allergies, Adverse Reactions, Alerts No Known Allergies [...] n pneumococcal 20-valent conjugate vaccine 12/31/22 Given [id number] 12y+ bivalent booster vax 06/10/22 Given SARS-CoV-2 [...] toxoids (Td) 07/26/98 Given 1Result Comment: [facility] # 2 scheduled for 10/02/20 2Admin Note: given in clinic 3Admin Note: vis given 4Admin Note: BIOMEDICAL RADHA 5Admin Note: Biomedical Radha [facility] 6Admin Note: given in clinic Medications amLODIPine 2.5 mg oral tablet 1 tablet, By Mouth, Daily, # 90 tablet, 1 Refills, Maintenance, 07/17/23 12:36:00 EST, [facility], 160, cm, 05/17/23 [...] tablet, 1 Refills, Maintenance, 08/17/23 16:12:00 EST, [facility], 160, cm, 05/17/23 [...] Weight Start Date: 09/09/23 Status: Ordered ergocalciferol 40316 iu oral capsule 1, capsule, By Mouth, Every week, # 5 capsule, Refills 11, Tot. Refills 11, Maintenance, 03/09/23 11:38:00 EDT, Route to Pharmacy Electronically, [facility], 160, cm, 12/31/22 9:21:00 EDT,Height, 65, kg, 04/28/22 7:07:00 EDT, Dry Weight Start Date: 03/09/23 Status: Ordered Farxiga 5 mg oral tablet 1 tablet, By Mouth, Daily, # 90 tablet, 3 Refills, Maintenance, 06/02/23 9:27:00 EST, [facility], 160, cm, 05/17/23 [...] Replace Required Details, Route to Pharmacy Electronically, [facility], 160, cm, ... Start Date: 09/01/23 Status: Ordered glipiZIDE 10 mg oral tablet 1 tablet, By Mouth, 2 times a day, # 180 tablet, 3 Refills, Maintenance, 09/22/22 12:28:00 EST, [facility], 160, cm, 09/09/22 14:01:00 EST, Height, 65, kg, 04/28/22 7:07:00 EDT, Dry Weight Start Date: 09/22/22 Status: Ordered Metoprolol Succinate ER 50 mg oral tablet, extended release 1 tablet, By Mouth, Daily, # 90 tablet, 3 Refills, Maintenance, 10/10/22 20:33:00 EDT, [facility], 160, cm, 09/24/22 9:03:00 EST, Height, 65, kg, 04/28/22 7:07:00 EDT, Dry Weight Start Date: 10/10/22 Status: Ordered montelukast 10 mg oral tablet 1, tablet, By Mouth, Daily, # 30 tablet, Refills 5, Tot. Refills 5, Maintenance, 06/28/23 10:39:00 EST, Route to Pharmacy Electronically, [facility], 160, cm, 05/17/23 10:46:00 EDT, Height, 65, kg, 04/28/22 7:07:00 EDT, Dry Weight Start Date: 06/28/23 Status: Ordered Pen [place], 30 G x 8 mm BD Ultra [...] 10:21:00 EDT, Aerosol, Route to Pharmacy Electronically, [id number], [facility], 159, cm, 11/10/21 9:57:00 EDT, H... Start Date: 11/10/21 Status: Ordered torsemide 20 mg oral tablet 2 tablet, By Mouth, Daily, # 180 tablet, 1 Refills, Maintenance, 08/26/23 21:25:00 EST, [facility], 160, cm, 05/17/23 [...] each, 5 Refills, Maintenance, 03/22/23 15:46:00 EDT, [facility], Partial fill upon [...] u/s 2009 5colo 2012 nl, repeat 2022 66808 normal, repeat 2010 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 8Methacholine challenge test 2014 positive for asthma. 9Dr. Batlan 2014 10Patient declines further PSA testing as of October 2015. Vital Signs Most recent to oldest [Reference Range]: 1 2 Height 160 cm (09/08/23 11:26 AM) 160 cm (09/08/23 10:05 AM) Weight 63.0 kg (09/08/23 10:05 AM) Oxygen Saturation [94-100 %] 99 % (09/08/23 10:05 AM) Pulse Rate [55-90 bpm] 52 bpm *L* (09/08/23 10:05 AM) Body Mass Index [18.5-24.99 kg/m2] 24.61 kg/m2 (09/08/23 10:05 AM) Blood Pressure [90-138/55-84 mm Hg] 170/ 67mm Hg *H* (09/08/23 11:26 AM) 182/59mm Hg *H* (09/08/23 10:05 AM) Respiratory Rate [16-30 br/min] 20 br/mi n (09/08/23 10:05 AM) Mode of Delivery (Oxygen) Room air (09/08/23 10:05 AM) Blood pressure sites Arm, right (09/08/23 10:05 AM) Dry Weight 63.0 kg (09/08/23 10:05 AM) Weight Obtained Via Standing scale (09/08/23 10:05 AM) Dry Weight Obtained Via Standing scale (09/08/23 10:05 AM) Social History Social History Type Response Smoking Status Former smoker, quit more than 30 days ago entered on: 09/08/23 Sex Goals Complications of DM Avoided Start Date:05/07/23 End Date: Status:Met Progression:Not Met 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) Start Jeronimo e:03/12/23 End Date:06/11/23 Status:Met Progression:Not Met EKG study * Event Display: ECG 12-Lead Authored Date: Please click on pdf link to open report * Event Display: ECG 12-Lead Authored Date: Ventricular Rate: 54 BPM Atrial Rate: 54 BPM P-R Interval: 184 ms QRS Duration: 92 ms Q-T Interval: 474 ms QTC Calculation(Bazett): 449 ms P Desha: -53 degrees R Desha: -18 degrees T Desha: 219 degrees Normal sinus rhythm Left ventricular hypertrophy with repolarization abnormality Abnormal ECG When compared with ECG of 16-MAR-2022 04:09, T wave inversion more evident in Anterolateral leads Confirmed by BRAD MOREAU MD ([id number]) on 09/08/2023 5:15:39 PM [place]: BRAD MOREAU MD Patient Care team information Care Team Personnel Name: Eliza Alejandre RN Position: [facility] RN Member Role: Primary Care Nurse Name: Breanna Moreno Position: [facility] Outreach Member Role: Lifetime Consulting Physician Name: Antony Pappas MD Position: [facility] Physician - Primary Care Member Role: PCP Address: Address: [address] [place] [id number] Name: Silvia Lawrence RN Position: S RN Member Role: Primary Care Nurse Name: Sahra (Baytrisha) Sarah Position: [facility] blocker automatic Member Role: Feed Grinder Name: Laura Chapin RN Position: S RN Member Role: Primary Care Nurse Name: Lenora Martines NP Position: Reference Physician Member Role: Primary Care Nurse Address: Address: [address] [place] [id number]- Name: Carrol Strauss RN Position: [facility] AMB Nurse Member Role: Primary Care Nurse Name: Claire Carr RN Position: [facility] RN Member Role: Primary Care Nurse Name: Rachel Robledo RN Position: [facility] RN Member Role: Primary Care Nurse Name: Richa Owens RN Position: [facility] RN Member Role: Primary Care Nurse Care Team Related Persons Name: LUIS EDUARDO J LUIS Address: [address] [place] [address] Name: HARVINDER FRANCISCO Address: home [address] [place] [address]
--- OUTSIDE RECORDS SUMMARY | 2024-05-22 07:12 | XMS_ITS | Continuity of Care Document ---
Author Organization [facility] [place] Ponce lt Address [address] [place] [address]- Care Team Providers Care Cyber Intelligence Analyst Name Role Phone Antony Pappas MD Primary Care Physician [phone] Encounter [facility] [place] Date(s): 08/05/23 - 09/04/23 [facility] [address] [place] [address]- Allergies, Adverse Reactions, Alerts No Known Allergies [...] n pneumococcal 20-valent conjugate vaccine 12/31/22 Given [id number] 12y+ bivalent booster vax 06/10/22 Given SARS-CoV-2 [...] tetanus-diphtheria toxoids (Td) 07/26/98 Given 1Result Comment: [facility] # 2 scheduled for 10/02/20 2Admin Note: given in clinic 3Admin Note: vis given 4Admin Note: BIOMEDICAL RADHA 5Admin Note: Biomedical Radha [facility] 6Admin Note: given in clinic Medications amLODIPine 2.5 mg oral tablet 1 tablet, By Mouth, Daily, # 90 tablet, 1 Refills, Maintenance, 07/17/23 12:36:00 EST, [facility], 160, cm, 05/17/23 10:46:00 [...] tablet, 1 Refills, Maintenance, 08/17/23 16:12:00 EST, [facility], 160, cm, 05/17/23 10:46:00 EDT, Height, 65, kg, 04/28/22 7:07:00 EDT, Dry Weight Start Date: 08/17/23 Status: Ordered ergocalciferol 38373 iu oral capsule 1, capsule, By Mouth, Every week, # 5 capsule, Refills 11, Tot. Refills 11, Maintenance, 03/09/23 11:38:00 EDT, Route to Pharmacy Electronically, [facility], 160, cm, 12/31/22 9:21:00 EDT,Height, 65, kg, 04/28/22 7:07:00 EDT, Dry Weight Start Date: 03/09/23 Status: Ordered Farxiga 5 mg oral tablet 1 tablet, By Mouth, Daily, # 90 tablet, 3 Refills, Maintenance, 06/02/23 9:27:00 EST, [facility], 160, cm, 05/17/23 10:46:00 [...] Replace Required Details, Route to Pharmacy Electronically, [facility], 160, cm, 0... Start Date: 09/01/23 Status: Ordered glipiZIDE 10 mg oral tablet 1 tablet, By Mouth, 2 times a day, # 180 tablet, 3 Refills, Maintenance, 09/22/22 12:28:00 EST, [facility], 160, cm, 09/09/22 14:01:00 EST, Height, 65, kg, 04/28/22 7:07:00 EDT, Dry Weight Start Date: 09/22/22 Status: Ordered Metoprolol Succinate ER 50 mg oral tablet, extended release 1 tablet, By Mouth, Daily, # 90 tablet, 3 Refills, Maintenance, 10/10/22 20:33:00 EDT, [facility], 160, cm, 09/24/22 9:03:00 EST, Height, 65, kg, 04/28/22 7:07:00 EDT, Dry Weight Start Date: 10/10/22 Status: Ordered montelukast 10 mg oral tablet 1, tablet, By Mouth, Daily, # 30 tablet, Refills 5, Tot. Refills 5, Maintenance, 06/28/23 10:39:00 EST, Route to Pharmacy Electronically, [facility], 160, cm, 05/17/23 10:46:00 EDT, Height, 65, kg, 04/28/22 7:07:00 EDT, Dry Weight Start Date: 06/28/23 Status: Ordered Pen [place], 30 G x 8 mm BD Ultra [...] 10:21:00 EDT, Aerosol, Route to Pharmacy Electronically, [id number], [facility], 159, cm, 11/10/21 9:57:00 [...] tablet, 1 Refills, Maintenance, 08/26/23 21:25:00 EST, [facility], 160, cm, 05/17/23 10:46:00 [...] each, 5 Refills, Maintenance, 03/22/23 15:46:00 EDT, [facility], Partial fill upon patient [...] u/s 2009 5colo 2012 nl, repeat 2022 68401 normal, repeat 2010 7Status post CABG ??1. [...] Team Personnel Name: Eliza Alejandre RN Position: [facility] RN Member Role: Primary Care Nurse Name: Breanna Moreno Position: [facility] Outreach Member Role: Lifetime Consulting Physician Name: Antony Pappas MD Position: [facility] Physician - Primary Care Member Role: PCP Address: Address: [address] [place] [id number]- Name: Silvia Lawrence RN Position: [facility] RN Member Role: Primary Care Nurse Name: Sahra (Hina) Sarah Position: [facility] solder making laborer Member Role: Radiator Core Tester Name: Laura Chapin RN Position: [facility] RN Member Role: Primary Care Nurse Name: Lenora Martines NP Position: Reference Physician Member Role: Primary Care Nurse Address: Address: [address] [place] [phone]- [place] Name: Carrol Strauss RN Position: [facility] AMB Nurse Member Role: Primary Care Nurse Name: Claire Carr RN Position: [facility] RN Member Role: Primary Care Nurse Name: Rachel Robledo RN Position: [facility] RN Member Role: Primary Care Nurse Name: Richa Owens RN Position: [facility] RN Member Role: Primary Care Nurse Care Team Related Persons Name: J LUIS HOFF Address: home [address] [place] [address] Name: HARVINDER FRANCISCO Address: home [address] [place] [address]
--- OUTSIDE RECORDS SUMMARY | 2024-05-22 07:12 | XMS_ITS | Continuity of Care Document ---
Author Organization [facility] [place] Ponce lt Address [address] [place] [address]- Care Team Providers Care Jig Maker Name Role Phone Antony Pappas MD Primary Care Physician Encounter [facility] Date(s): 03/28/20 - 04/27/20 [facility] [place] Adult [address] [place] [address]- [facility] Allergies, Adverse Reactions, Alerts Substance Reaction Severity [...] Note: BIOMEDICAL RADHA 4Admin Note: Biomedical Radha [facility] 5Admin Note: given in clinic Medications aspirin 81 mg oral delayed release tablet 81 mg, 1, tablet, By Mouth, Daily, # 30 tablet, Refills 0, Maintenance, 09/07/18 15:22:30 EST Start Date: 09/07/18 Status: Ordered atorvastatin 80 mg oral tablet 1 tablet = 80 mg, By Mouth, Daily, # 90 tablet, 1 Refills, Maintenance, 01/10/20 15:14:00 EDT, Tablet, [facility], 159, cm, 01/05/20 10:36:00 EDT, Height Start Date: 01/10/20 Status: Ordered Breo Ellipta 100 mcg-25 mcg/inh inhalation powder 1 puffs, Inhalation, Daily, In place of QVAR 90 day supply, # 3 each, 1 Refills, Maintenance, 04/15/20 14:44:00 EDT, Powder, [facility], 1 puffs Inhalation Daily,Instr:In place of QVAR; 90day supply, 159, cm, 01/30/20 15:17:00 EDT, Height Start Date: 04/15/20 Status: Ordered Freestyle Lite Test Strips See [...] 12/06/19 8:34:00 EDT, Route to Pharmacy Electronically, [facility], 159, cm, 12/06/19 7:56:00 EDT, Height Start Date: 12/06/19 Stop Date: 11/30/20 Status: Ordered glipiZIDE 10 mg oral tablet 1 tablet = 10 mg, By Mouth, 2 times a day, # 180 tablet, 0 Refills, Maintenance, 03/05/20 16:15:00 EDT, Tablet, [facility], 159, cm, 01/30/20 15:17:00 EDT, Height Start Date: 03/05/20 Status: Ordered Insulin Syringe, BD Ultra-Fine 0.5 [...] 01/30/20 15:07:00 EDT, Route to Pharmacy Electronically, [facility], 159, cm, 01/24/20 15:11:00 EDT, Height Start Date: 01/30/20 Status: Ordered lisinopril 20 mg oral tablet 20 mg, 1, tablet, By Mouth, Daily, # 30 tablet, Refills 0, Tot. Refills 0, Maintenance, 11/01/18 13:59:18 EDT, Route to Pharmacy Electronically, [id number], [id number] Start Date: 11/01/18 Status: Ordered Metoprolol Tartrate 25 mg oral tablet 1 tablet, By Mouth, 2 times a day, # 180 tablet, 0 Refills, Maintenance, 02/29/20 7:24:00 EDT, [facility], 159, cm, 01/30/20 15:17:00 EDT, Height Start Date: 02/29/20 Status: Ordered ProAir HFA 90 mcg/inh inhalation aerosol with adapter 2, puffs, Inhalation, Every 6 hours, PRN, # 8.5 Gm, Refills 1, Tot. Refills 1, Maintenance, 02/01/19 10:58:44 EDT, Aerosol, Route to Pharmacy Electronically, [id number], [facility] Start Date: 02/01/19 Status: Ordered ReliOn/Novolin N 100 units/mL subcutaneous injection See Instructions, INJECT 18 UNITS SUBCUTANEOUSLY IN THE MORNING AND 9 IN THE EVENING, # 10 mL, 2 Refills, Maintenance, 01/13/20 15:26:00 EDT, [facility], 90 day, 159, cm, 01/05/20 10:36:00EDT, Height Start Date: 01/13/20 Status: Ordered sildenafil 25 mg oral tablet See Instructions, PRN Other, 1 tablet By Mouth Daily as needed prior to sexual intercourse, # 2 tablet, 11 Refills, Maintenance, 01/24/20 15:13:00 EDT, Tablet, [facility], 159, cm, 01/24/20 15:11:00 EDT, Height Start Date: 01/24/20 Status: Ordered terazosin 5 mg oral capsule 5 mg, 1, capsule, By Mouth, Daily at bedtime, # 90 capsule, Refills 1, Tot. Refills 1, Maintenance,04/15/20 14:45:00 EDT, Route to Pharmacy Electronically, [facility], 159, cm, 01/30/20 15:17:00 EDT, Height Start Date: 04/15/20 Status: Ordered Vitamin D 45802 iu oral capsule 50,000 International_Units, 1, capsule, By Mouth, Every week, # 5 capsule, Refills 11, Tot. [id number], Maintenance, 05/05/19 10:57:40 EDT, Route to Pharmacy Electronically, [id number], [facility] Start Date: 05/05/19 Status: [...] u/s 2009 5colo 2012 nl, repeat 2022 61881 normal, repeat 2010 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 8Methacholine challenge test 2014 positive for asthma. 9Dr. Batroseanna 2014 10Patient declines further PSA testing as of October 2015. Social History Social History Type Response Smoking Status Former smoker; Other : Smoking age 55. social smoker; entered on: 09/29/16 Sex Male
--- OUTSIDE RECORDS SUMMARY | 2024-05-22 07:12 | XMS_ITS | Continuity of Care Document ---
Author Organization [facility] Frederick Ponce lt Address [address] [place] [address]- Care Team Providers Care Medical Practitioners Name Role Phone Antony Pappas MD Primary Care Physician [phone] Encounter [facility] [place] Date(s): 09/03/23 - 10/03/23 [facility] [place] Adult [address] [place] [address]- Allergies, Adverse Reactions, Alerts Substance Reaction Severity [...] n pneumococcal 20-valent conjugate vaccine 12/31/22 Given [id number] 12y+ bivalent booster vax 06/10/22 Given SARS-CoV-2 [...] (Td) 07/26/98 Given 1Result Comment: [facility] # 2 scheduled for 10/02/20 2Admin Note: given in clinic 3Admin Note: vis given 4Admin Note: BIOMEDICAL RADHA 5Admin Note: Biomedical Radha [facility] 6Admin Note: given in clinic Medications amLODIPine 2.5 mg oral tablet 1 tablet, By Mouth, Daily, # 90 tablet, 1 Refills, Maintenance, 07/17/23 12:36:00 EST, [facility], 160, cm, 05/17/23 [...] tablet, 1 Refills, Maintenance, 08/17/23 16:12:00 EST, [facility], 160, cm, 05/17/23 [...] Weight Start Date: 09/09/23 Status: Ordered ergocalciferol 41342 iu oral capsule 1, capsule, By Mouth, Every week, # 5 capsule, Refills 11, Tot. Refills 11, Maintenance, 03/09/23 11:38:00 EDT, Route to Pharmacy Electronically, [facility], 160, cm, 12/31/22 9:21:00 EDT,Height, 65, kg, 04/28/22 7:07:00 EDT, Dry Weight Start Date: 03/09/23 Status: Ordered Farxiga 5 mg oral tablet 1 tablet, By Mouth, Daily, # 90 tablet, 3 Refills, Maintenance, 06/02/23 9:27:00 EST, [facility], 160, cm, 05/17/23 [...] Replace Required Details, Route to Pharmacy Electronically, [facility], 160, cm, ... Start Date: 09/01/23 Status: Ordered glipiZIDE 10 mg oral tablet See Instructions, Take 1 tablet by mouth twice daily, # 180 tablet, 0 Refills, Maintenance, 09/20/23 9:48:00 EST, [facility], 160, cm, 09/08/23 11:26:00 EST, Height, 63, kg, 09/08/23 10:05:00 EST, Dry Weight Start Date: 09/20/23 Status: Ordered Metoprolol Succinate ER 50 mg oral tablet, extended release 1 tablet, By Mouth, Daily, # 90 tablet, 0 Refills, Maintenance, 09/27/23 7:45:00 EST, [facility], 160, cm, 09/08/23 11:26:00 EST, Height, 63, kg, 09/08/23 10:05:00 EST, Dry Weight Start Date: 09/27/23 Status: Ordered montelukast 10 mg oral tablet 1, tablet, By Mouth, Daily, # 30 tablet, Refills 5, Tot. Refills 5, Maintenance, 06/28/23 10:39:00 EST, Route to Pharmacy Electronically, [facility], 160, cm, 05/17/23 10:46:00 EDT, Height, 65, kg, 04/28/22 7:07:00 EDT, Dry Weight Start Date: 06/28/23 Status: Ordered Pen [place], 30 G x 8 mm BD Ultra [...] 10:21:00 EDT, Aerosol, Route to Pharmacy Electronically, [id number], [facility], 159, cm, 11/10/21 9:57:00 EDT, H... Start Date: 11/10/21 Status: Ordered torsemide 20 mg oral tablet 2 tablet, By Mouth, Daily, # 180 tablet, 1 Refills, Maintenance, 08/26/23 21:25:00 EST, [facility], 160, cm, 05/17/23 [...] 5 each, 5 Refills, Maintenance, 09/30/23 14:38:00 [facility], Partial fill upon [...] u/s 2009 5colo 2012 nl, repeat 2022 83881 normal, repeat 2010 7Status post CABG ??1. 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) Start Jeronimo e:03/12/23 End Date:06/11/23 Status:Met Progression:Not Met Patient Care team information Care Team Personnel Name: Eliza Alejandre RN Position: [facility] RN Member Role: Primary Care Nurse Name: Breanna Moreno Position: [facility] Outreach Member Role: Lifetime Consulting Physician Name: Antony Pappas MD Position: [facility] Physician - Primary Care Member Role: PCP Address: Address: [address] [place] [address]- Name: Silvia Lawrence RN Position: [facility] RN Member Role: Primary Care Nurse Name: Sahra (Hina) Sarah Position: [facility] material expeditor Member Role: Revenue Stamp Cutter Name: Laura Chapin RN Position: [facility] RN Member Role: Primary Care Nurse Name: Lenora Martines NP Position: Reference Physician Member Role: Primary Care Nurse Address: Address: [address] [place] [address]- Name: Carrol Strauss RN Position: [facility] AMB Nurse Member Role: Primary Care Nurse Name: Claire Carr RN Position: [facility] RN Member Role: Primary Care Nurse Name: Rachel Robledo RN Position: [facility] RN Member Role: Primary Care Nurse Name: Richa Owens RN Position: [facility] RN Member Role: Primary Care Nurse Care Team Related Persons Name: J LUIS HOFF Address: home [address] [place] [address] Name: HARVINDER FRANCISCO Address: home [address] [place] [address]
--- OUTSIDE RECORDS SUMMARY | 2024-05-22 07:12 | XMS_ITS | Continuity of Care Document ---
Author Organization [facility] Address [address] [place] [id number]- Care Team Providers Care Research Center Partner Name Role Phone Antony Pappas MD Primary Care Physician Encounter [facility] [place] Date(s): 08/18/22 - 12/13/22 [facility] [address] [place] [address]- Attending Physician: Pepe Junior MD Admitting Physician: Pepe Junior MD Referring Physician: Antony Pappas MD Allergies, Adverse Reactions, Alerts No Known Allergies Immunizations Given and Recorded Vaccine Date Status Refusal Reason [id number] 12y+ bivalent booster vax 06/10/22 Given influenza [...] toxoids (Td) 07/26/98 Given 1Result Comment: [facility] # 2 scheduled for 10/02/20 2Admin Note: given in clinic 3Admin Note: vis given 4Admin Note: BIOMEDICAL RADHA 5Admin Note: Biomedical Radha [facility] [place] [facility] 6Admin Note: given in clinic Medications Advair Diskus 250 mcg-50 mcg inhalation powder 1, puffs, Inhalation, 2 times a day, Give 3 month supply, # 3 each, Refills 3, Tot. Refills 3, Maintenance, 08/27/22 10:29:00 EST, Powder, Route to Pharmacy Electronically, [id number], [facility], [facility],... Start Date: 08/27/22 Status: Ordered amLODIPine 2.5 mg oral tablet 1 tablet, By Mouth, Daily, # 90 tablet, 1 Refills, Maintenance, 07/13/22 15:46:00 EST, [facility], 160, cm, 06/10/22 10:45:00 [...] tablet, 1 Refills, Maintenance, 09/08/22 14:54:00 EST, [facility], 160, cm, 07/30/22 9:45:00 EST, Height, 65, kg, 04/28/22 7:07:00 EDT, Dry Weight Start Date: 09/08/22 Status: Ordered ergocalciferol 71302 iu oral capsule 1, capsule, By Mouth, Every week, # 5 capsule, Refills 11, Route to Pharmacy Electronically, [facility], 159, cm, 12/29/21 10:39:00 EDT, Height Start Date: 01/07/22 Status: Ordered Farxiga 5 mg oral tablet 1 tablet = 5 mg, By Mouth, Daily, If Pt cannot afford we will try to get medication assist through the company., # 30 tablet, 3 Refills, Maintenance, 09/11/22 13:16:00 EST, Tablet, [facility], Partial fill upon [...] 05/27/22 18:05:00 EDT, Route to Pharmacy Electronically, [facility], 160, cm, 05/01/22 8:19:00 EDT, Height, 65, kg, 04/28/22 7:07:00 EDT, Dry Weight Start Date: 05/27/22 Status: Ordered glipiZIDE 10 mg oral tablet 1 tablet, By Mouth, 2 times a day, # 180 tablet, 3 Refills, Maintenance, 09/22/22 12:28:00 EST, [facility], 160, cm, 09/09/22 14:01:00 [...] 09/25/20 15:22:00 EST, Route to Pharmacy Electronically, [facility], Partial fill upon patient request if the prescription is for a schedule II opioid d... Start Date: 09/25/20 Status: Ordered Metoprolol Succinate ER 50 mg oral tablet, extended release 1 tablet, By Mouth, Daily, # 90 tablet, 3 Refills, Maintenance, 10/10/22 20:33:00 EDT, [facility], 160, cm, 09/24/22 9:03:00 EST, Height, 65, kg, 04/28/22 7:07:00 EDT, Dry Weight Start Date: 10/10/22 Status: Ordered montelukast 10 mg oral tablet See Instructions, Take 1 tablet by mouth once daily, # 30 tablet, Refills 5, Tot. Refills 5, Maintenance, 06/23/22 11:11:00 EST, Instructions Replace Required Details, Route to Pharmacy Electronically, [facility], 160, cm, 06/10/22 10:45:00... Start Date: 06/23/22 Status: Ordered NovoLOG Mix 70/30 subcutaneous suspension See Instructions, Patient wants bottle of insulin not pens. Inject SQ 10 units qam and 10 units qpm, # 10 mL, 5 Refills, Maintenance, 11/27/22 13:21:00 EDT, [facility], Partial fill upon patient request if the prescription is for a schedul... Start Date: 11/27/22 Status: Ordered ProAir HFA 90 mcg/inh inhalation aerosol with adapter 2, puffs, Inhalation, Every 6 hours, PRN, # 8.5 Gm, Refills 6, Tot. Refills 6, Maintenance, 11/10/21 10:21:00 EDT, Aerosol, Route to Pharmacy Electronically, [id number], [facility], 159, cm, 11/10/21 9:57:00 EDT, H... Start Date: 11/10/21 Status: Ordered terazosin 5 mg oral capsule 1, capsule, By Mouth, Daily at bedtime, # 90 capsule, Refills 0, Maintenance, 11/09/22 20:21:00 EDT, Route to Pharmacy Electronically, [facility], 160, cm, 10/16/22 8:32:00 EDT, Height, 65, kg, 04/28/22 7:07:00 EDT, Dry Weight Start Date: 11/09/22 Status: Ordered torsemide 20 mg oral tablet 2 tablet = 40 mg, By Mouth, Daily, # 180 tablet, 3 Refills, Maintenance, 09/09/22 14:25:00 EST, [facility], Partial fill upon [...] u/s 2009 5colo 2012 nl, repeat 2022 84194 normal, repeat 2010 7Status post CABG ??1. 2016. 8Methacholine challenge test 2014 positive for asthma. 9Dr. Batlan 2014 10Patient declines further PSA testing as of October 2015. Social History Social History Type Response Tobacco Other: quit age 52, smoked since age 22, 1/2 ppd. Sex Patient Care team information Care Team Personnel Name: Eliza Alejandre RN Position: [facility] RN Member Role: Primary Care Nurse Name: Breanna Moreno Position: [facility] Outreach Member Role: Lifetime Consulting Physician Name: Antony Pappas MD Position: [facility] Primary Care Physician Member Role: PCP Address: Address: [address] [place] [phone]- [place] Name: Silvia Lawrence RN Position: [facility] RN Member Role: Primary Care Nurse Name: Heather Pardo Position: [facility] TA Member Role: Lifetime Consulting Physician Name: Laura Chapin RN Position: [facility] RN Member Role: Primary Care Nurse Name: Lenora Martines NP Position: Reference Physician Member Role: Primary Care Nurse Address: Address: [address] [place] [phone]- [place] Name: Carrol Strauss RN Position: [facility] AMB Nurse Member Role: Primary Care Nurse Name: Claire Carr RN Position: [facility] RN Member Role: Primary Care Nurse Name: Rachel Robledo RN Position: S RN Member Role: Primary Care Nurse Name: Richa Owens RN Position: [facility] RN Member Role: Primary Care Nurse Care Team Related Persons Name: J LUIS HOFF Address: [address] [place] [address] Name: HARVNIDER FRANCISCO Address: home [address] [place] [address]
--- OUTSIDE RECORDS SUMMARY | 2024-05-22 07:12 | XMS_ITS | Continuity of Care Document ---
Author Organization [facility] Address [address] [place] [id number]- Care Team Providers Care Bioprocess Development Engineer Name Role Phone Antony Pappas MD Primary Care Physician Encounter [facility] [place] Date(s): 01/24/20 - 02/23/20 [facility] [address] [place] [address]- [facility] Attending Physician: Wero Gayle Admitting Physician: AdmtrWero [...] RADHA 4Admin Note: Biomedical Radha [facility] 5Admin Note: given in clinic Medications aspirin 81 mg oral delayed release tablet 81 mg, 1, tablet, By Mouth, Daily, # 30 tablet, Refills 0, Maintenance, 09/07/18 15:22:30 EST Start Date: 09/07/18 Status: Ordered atorvastatin 80 mg oral tablet 1 tablet = 80 mg, By Mouth, Daily, # 90 tablet, 1 Refills, Maintenance, 01/10/20 15:14:00 EDT, Tablet, [facility], 159, cm, 01/05/20 10:36:00 EDT, Height Start Date: 01/10/20 Status: Ordered Breo Ellipta 100 mcg-25 mcg/inh inhalation powder 1 puffs, Inhalation, Daily, In place of QVAR 90 day supply, # 3 each, 1 Refills, Maintenance, 09/27/19 10:26:00 EST, Powder, [facility], 1 puffs Inhalation Daily,Instr:In [...] 12/06/19 8:34:00 EDT, Route to Pharmacy Electronically, [facility], 159, cm, 12/06/19 7:56:00 EDT, Height Start Date: 12/06/19 Stop Date: 11/30/20 Status: Ordered glipiZIDE 10 mg oral tablet 1 tablet = 10 mg, By Mouth, 2 times a day, # 180 tablet, 1 Refills, Maintenance, 08/29/19 11:00:00 EST, Tablet, [facility], 159, cm, 05/05/19 10:45:00 [...] 01/30/20 15:07:00 EDT, Route to Pharmacy Electronically, [facility], 159, cm, 01/24/20 15:11:00 EDT, Height Start Date: 01/30/20 Status: Ordered lisinopril 20 mg oral tablet 20 mg, 1, tablet, By Mouth, Daily, # 30 tablet, Refills 0, Tot. Refills 0, Maintenance, 11/01/18 13:59:18 EDT, Route to Pharmacy Electronically, [id number], [id number] Start Date: 11/01/18 Status: Ordered metoprolol 25 mg oral tablet 25 mg, 1, tablet, By Mouth, 2 times a day, # 180 tablet, Refills 1, Tot. Refills 1, Maintenance, 08/29/19 11:02:00 EST, Route to Pharmacy Electronically, [facility], No change from last Rx. from 02/06/19, 159, cm, 05/05/19 10:45:00 EDT, Height Start Date: 08/29/19 Status: Ordered ProAir HFA 90 mcg/inh inhalation aerosol with adapter 2, puffs, Inhalation, Every 6 hours, PRN, # 8.5 Gm, Refills 1, Tot. Refills 1, Maintenance, 02/01/19 10:58:44 EDT, Aerosol, Route to Pharmacy Electronically, [id number], [facility] Start Date: 02/01/19 Status: Ordered ReliOn/Novolin N 100 units/mL subcutaneous injection See Instructions, INJECT 18 UNITS SUBCUTANEOUSLY IN THE MORNING AND 9 IN THE EVENING, # 10 mL, 2 Refills, Maintenance, 01/13/20 15:26:00 EDT, [facility], 90 day, 159, cm, 01/05/20 10:36:00EDT, Height Start Date: 01/13/20 Status: Ordered sildenafil 25 mg oral tablet See Instructions, PRN Other, 1 tablet By Mouth Daily as needed prior to sexual intercourse, # 2 tablet, 11 Refills, Maintenance, 01/24/20 15:13:00 EDT, Tablet, [facility], 159, cm, 01/24/20 15:11:00 EDT, Height Start Date: 01/24/20 Status: Ordered terazosin 5 mg oral capsule 5 mg, 1, capsule, By Mouth, Daily at bedtime, # 90 capsule, Refills 0, Tot. Refills 0, Maintenance,12/31/19 10:28:00 EDT, Route to Pharmacy Electronically, [facility], 159, cm, 12/06/19 7:56:00 EDT, Height Start Date: 12/31/19 Status: Ordered Vitamin D 17977 iu oral capsule 50,000 International_Units, 1, capsule, By Mouth, Every week, # 5 capsule, Refills 11, Tot. [id number], Maintenance, 05/05/19 10:57:40 EDT, Route to Pharmacy Electronically, [id number], [facility] Start Date: 05/05/19 Status: [...] u/s 2009 5colo 2012 nl, repeat 2022 90751 normal, repeat 2010 7Status post CABG ??1. 2016. 8Methacholine challenge test 2014 positive for asthma. 9Dr. Misa 2014 10Patient declines further PSA testing as of October 2015. Social History Social History Type Response Smoking Status Former smoker; Other : Smoking age 55. social smoker; entered on: 09/29/16 Sex Male
--- OUTSIDE RECORDS SUMMARY | 2024-05-22 07:12 | XMS_ITS | Continuity of Care Document ---
Author Organization [facility] Address [address] [place] [address]- Care Team Providers Care Area Representative Name Role Phone Elyse LEE, Antony Ospina Primary Care Physician [phone] Encounter [facility] [place] Date(s): 08/31/19 - 12/29/19 [facility] [address] [place] [address]- [facility] Attending Physician: Pepe Junior MD Admitting Physician: Pepe Junior MD Allergies, Adverse Reactions, [...] Refills, Maintenance, Tablet, Route to Pharmacy Electronically, [id number], [facility] Start Date: 11/18/18 Status: Ordered Breo Ellipta 100 mcg-25 mcg/inh inhalation powder 1 puffs, Inhalation, Daily, In place of QVAR 90 day supply, # 3 each, 1 Refills, Maintenance, 09/27/19 10:26:00 EST, Powder, [facility], 1 puffs Inhalation Daily,Instr:In [...] 12/06/19 8:34:00 EDT, Route to Pharmacy Electronically, [facility], 159, cm, 12/06/19 7:56:00 EDT, Height Start Date: 12/06/19 Stop Date: 11/30/20 Status: Ordered glipiZIDE 10 mg oral tablet 1 tablet = 10 mg, By Mouth, 2 times a day, # 180 tablet, 1 Refills, Maintenance, 08/29/19 11:00:00 EST, Tablet, [facility], 159, cm, 05/05/19 10:45:00 [...] 10/31/18 14:12:28 EDT, Route to Pharmacy Electronically, [id number], [facility] Start Date: 10/31/18 Status: Ordered lisinopril 20 mg oral tablet 20 mg, 1, tablet, By Mouth, Daily, # 30 tablet, Refills 0, Tot. Refills 0, Maintenance, 11/01/18 13:59:18 EDT, Route to Pharmacy Electronically, [id number], [facility] [id number] Start Date: 11/01/18 Status: Ordered metoprolol 25 mg oral tablet 25 mg, 1, tablet, By Mouth, 2 times a day, # 180 tablet, Refills 1, Tot. Refills 1, Maintenance, 08/29/19 11:02:00 EST, Route to Pharmacy Electronically, [facility], No change from last Rx. from 02/06/19, 159, cm, 05/05/19 10:45:00 EDT, Height Start Date: 08/29/19 Status: Ordered ProAir HFA 90 mcg/inh inhalation aerosol with adapter 2, puffs, Inhalation, Every 6 hours, PRN, # 8.5 Gm, Refills 1, Tot. Refills 1, Maintenance, 02/01/19 10:58:44 EDT, Aerosol, Route to Pharmacy Electronically, [id number], [facility] Start Date: 02/01/19 Status: Ordered ReliOn/Novolin N 100 units/mL subcutaneous injection See Instructions, INJECT 18 UNITS SUBCUTANEOUSLY IN THE MORNING AND 9 IN THE EVENING, # 10 mL, 3 Refills, Maintenance, 08/17/19 13:20:00 EST, [facility], 90 day, 159, cm, 05/05/19 10:45:00EDT, Height Start Date: 08/17/19 Status: Ordered terazosin 5 mg oral capsule 5 mg, 1, capsule, By Mouth, Daily at bedtime, # 90 capsule, Refills 3, Tot. Refills 3, Maintenance,01/10/19 11:43:33 EDT, Route to Pharmacy Electronically, [id number], [facility] Start Date: 01/10/19 Status: Ordered Vitamin D 06501 iu oral capsule 50,000 International_Units, 1, capsule, By Mouth, Every week, # 5 capsule, Refills 11, Tot. [id number], Maintenance, 05/05/19 10:57:40 EDT, Route to Pharmacy Electronically, [id number], [facility] Start Date: 05/05/19 Status: [...] u/s 2009 5colo 2012 nl, repeat 2022 26591 normal, repeat 2010 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 8Methacholine challenge test 2014 positive for asthma. 9Dr. Misa 2014 10Patient declines further PSA testing as of October 2015. Social History Social History Type Response Smoking Status Former smoker; Other : Smoking age 55. social smoker; entered on: 09/29/16 Sex
--- OUTSIDE RECORDS SUMMARY | 2024-05-22 07:12 | XMS_ITS | Continuity of Care Document ---
Author Organization [facility] Address [address] [place] [address]- Care Team Providers Care Technical Services Specialist Name Role Phone Antony Pappas MD Primary Care Physician [phone] Encounter [facility] [place] Date(s): 08/26/23 - 09/25/23 [facility] [address] [place] [address]- Allergies, Adverse Reactions, Alerts Substance Reaction Severity [...] n pneumococcal 20-valent conjugate vaccine 12/31/22 Given [id number] 12y+ bivalent booster vax 06/10/22 Given SARS-CoV-2 [...] tetanus-diphtheria toxoids (Td) 07/26/98 Given 1Result Comment: [facility] # 2 scheduled for 10/02/20 2Admin Note: given in clinic 3Admin Note: vis given 4Admin Note: BIOMEDICAL RADHA 5Admin Note: Biomedical Radha [facility] 6Admin Note: given in clinic Medications amLODIPine 2.5 mg oral tablet 1 tablet, By Mouth, Daily, # 90 tablet, 1 Refills, Maintenance, 07/17/23 12:36:00 EST, [facility], 160, cm, 05/17/23 10:46:00 EDT, [...] tablet, 1 Refills, Maintenance, 08/17/23 16:12:00 EST, [facility], 160, cm, 05/17/23 10:46:00 EDT, [...] Weight Start Date: 09/09/23 Status: Ordered ergocalciferol 17825 iu oral capsule 1, capsule, By Mouth, Every week, # 5 capsule, Refills 11, Tot. Refills 11, Maintenance, 03/09/23 11:38:00 EDT, Route to Pharmacy Electronically, [facility], 160, cm, 12/31/22 9:21:00 EDT,Height, 65, kg, 04/28/22 7:07:00 EDT, Dry Weight Start Date: 03/09/23 Status: Ordered Farxiga 5 mg oral tablet 1 tablet, By Mouth, Daily, # 90 tablet, 3 Refills, Maintenance, 06/02/23 9:27:00 EST, [facility], 160, cm, 05/17/23 10:46:00 EDT, [...] Replace Required Details, Route to Pharmacy Electronically, [facility], 160, cm, ... Start Date: 09/01/23 Status: Ordered glipiZIDE 10 mg oral tablet See Instructions, Take 1 tablet by mouth twice daily, # 180 tablet, 0 Refills, Maintenance, 09/20/23 9:48:00 EST, [facility], 160, cm, 09/08/23 11:26:00 EST, Height, 63, kg, 09/08/23 10:05:00 EST, Dry Weight Start Date: 09/20/23 Status: Ordered Metoprolol Succinate ER 50 mg oral tablet, extended release 1 tablet, By Mouth, Daily, # 90 tablet, 3 Refills, Maintenance, 10/10/22 20:33:00 EDT, [facility], 160, cm, 09/24/22 9:03:00 EST, Height, 65, kg, 04/28/22 7:07:00 EDT, Dry Weight Start Date: 10/10/22 Status: Ordered montelukast 10 mg oral tablet 1, tablet, By Mouth, Daily, # 30 tablet, Refills 5, Tot. Refills 5, Maintenance, 06/28/23 10:39:00 EST, Route to Pharmacy Electronically, [facility], 160, cm, 05/17/23 10:46:00 EDT, Height, 65, kg, 04/28/22 7:07:00 EDT, Dry Weight Start Date: 06/28/23 Status: Ordered Pen [place], 30 G x 8 mm BD Ultra [...] 10:21:00 EDT, Aerosol, Route to Pharmacy Electronically, [id number], [facility], 159, cm, 11/10/21 9:57:00 EDT, H... Start Date: 11/10/21 Status: Ordered torsemide 20 mg oral tablet 2 tablet, By Mouth, Daily, # 180 tablet, 1 Refills, Maintenance, 08/26/23 21:25:00 EST, [facility], 160, cm, 05/17/23 10:46:00 EDT, [...] each, 5 Refills, Maintenance, 03/22/23 15:46:00 EDT, [facility], Partial fill upon [...] u/s 2009 5colo 2012 nl, repeat 2022 79180 normal, repeat 2010 7Status post CABG ??1. 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) Start Jeronimo e:03/12/23 End Date:06/11/23 Status:Met Progression:Not Met Patient Care team information Care Team Personnel Name: Eliza Alejandre RN Position: [facility] RN Member Role: Primary Care Nurse Name: Breanna Moreno Position: [facility] Outreach Member Role: Lifetime Consulting Physician Name: Antony Pappas MD Position: [facility] Physician - Primary Care Member Role: PCP Address: Address: [address] [place] [address]- Name: Silvia Lawrence RN Position: [facility] RN Member Role: Primary Care Nurse Name: Sahra (Baytrisha) Sarah Position: [facility] furniture removalist Member Role: Chain Dyer Name: Laura Chapin RN Position: [facility] RN Member Role: Primary Care Nurse Name: Lenora Martines NP Position: Reference Physician Member Role: Primary Care Nurse Address: Address: [address] [place] [address]- Name: Carrol Strauss RN Position: [facility] AMB Nurse Member Role: Primary Care Nurse Name: Claire Carr RN Position: S RN Member Role: Primary Care Nurse Name: Rachel Robledo RN Position: [facility] RN Member Role: Primary Care Nurse Name: Richa Owens RN Position: [facility] RN Member Role: Primary Care Nurse Care Team Related Persons Name: J LUIS HOFF Address: home [address] [place] [address] Name: HARVINDER FRANCISCO Address: home [address] [place] [address]
--- OUTSIDE RECORDS SUMMARY | 2024-05-22 07:12 | XMS_ITS | Continuity of Care Document ---
Author Organization [facility] Address [address] [place] [address]- Care Team Providers Care Buildings And Grounds Coordinator Name Role Phone Antony Pappas MD Primary Care Physician Encounter [facility] Date(s): 02/02/22 - 03/04/22 [facility] [address] [place] [address]- Attending Physician: Admtr, Ar8 Allergies, Adverse Reactions, [...] toxoids (Td) 07/26/98 Given 1Result Comment: [facility] # 2 scheduled for 10/02/20 2Admin Note: given in clinic 3Admin Note: vis given 4Admin Note: BIOMEDICAL RADHA 5Admin Note: Biomedical Radha [facility] 6Admin Note: given in clinic Medications Advair Diskus 250 mcg-50 mcg inhalation powder 1, puffs, Inhalation, 2 times a day, Give 3 month supply, # 3 each, Refills 3, Tot. Refills 3, Maintenance, 09/26/21 10:53:00 EST, Powder, Route to Pharmacy Electronically, [id number], [facility], 159,... Start Date: 09/26/21 Status: Ordered amLODIPine 2.5 mg oral tablet 1 tablet, By Mouth, Daily, # 90 tablet, 1 Refills, [facility], 159, cm, 11/26/21 11:06:00 EDT, Height Start Date: 12/09/21 Status: Ordered aspirin 81 mg oral delayed release tablet 81 mg, 1, tablet, By Mouth, Daily, # 30 tablet, Refills 0, Maintenance, 09/07/18 15:22:30 EST Start Date: 09/07/18 Status: Ordered atorvastatin 80 mg oral tablet 1 tablet, By Mouth, Daily, # 90 tablet, 1 Refills, Maintenance, 02/14/22 11:19:00 EDT, [facility], 160, cm, 02/02/22 8:07:00 EDT, Height Start Date: 02/14/22 Status: Ordered ergocalciferol 07038 iu oral capsule 1, capsule, By Mouth, Every week, # 5 capsule, Refills 11, Route to Pharmacy Electronically, [facility], 159, cm, 12/29/21 10:39:00 EDT, Height Start Date: 01/07/22 Status: Ordered Freestyle Lite Test Strips See Instructions, # 180 each, Refills 3, Tot. Refills 3, Maintenance, Use to test blood sugar twicedaily for DM2 E11.9 3 month supply, 09/24/19 12:10:00 EST, Compound, 159, cm, 05/05/19 10:45:00 EDT, Height Start Date: 09/24/19 Status: Ordered furosemide 20 mg oral tablet See Instructions, 2 tablets in the morning, 1 tablet in the afternoon., # 270 tablet, Refills 3, Tot. Refills 3, 02/25/22 9:23:00 EDT, Instructions Replace Required Details, Do Not Route Start Date: 02/25/22 Status: Ordered gabapentin 300 mg oral capsule 1, capsule, By Mouth, Daily at bedtime, # 90 capsule, Refills 3, Route to Pharmacy Electronically, [facility], 159, cm, 02/20/21 6:56:00 EDT, Height Start Date: 05/20/21 Status: Ordered glipiZIDE 10 mg oral tablet 1 tablet, By Mouth, 2 times a day, # 180 tablet, 1 Refills, [facility], 159, cm, 11/21/21 11:16:00 [...] 15:22:00 EST, Route to Pharmacy Electronically, [facility], Partial fill upon patient request if the prescription is for a schedule II opioid d... Start Date: 09/25/20 Status: Ordered ProAir HFA 90 mcg/inh inhalation aerosol with adapter 2, puffs, Inhalation, Every 6 hours, PRN, # 8.5 Gm, Refills 6, Tot. Refills 6, Maintenance, 11/10/21 10:21:00 EDT, Aerosol, Route to Pharmacy Electronically, [id number], [facility], 159, cm, 11/10/21 9:57:00 EDT, H... Start Date: 11/10/21 Status: Ordered ReliOn/Novolin N 100 units/mL subcutaneous injection See Instructions, INJECT 18 UNITS SUBCUTANEOUSLY IN THE MORNING AND 9 IN THE EVENING, # 10 mL, 5 Refills, [facility], 159, cm, 09/04/21 13:27:00 EST, Height Start Date: 10/06/21 Status: Ordered sildenafil 25 mg oral tablet 1 tablet, By Mouth, Daily, PRN NEEDED, PRIOR TO SEXUAL INTERCOURSE., # 2 tablet, 11 Refills, [facility], 159, cm, 11/26/21 11:06:00 EDT, Height Start Date: 12/08/21 Status: Ordered Singulair 10 mg oral tablet 10 mg, 1, tablet, By Mouth, Daily, # 30 tablet, Refills 6, Tot. Refills 6, Maintenance, 11/10/21 10:21:00 EDT, Route to Pharmacy Electronically, [facility], Partial fill upon patient request if the prescription is for a schedule II opioid d... Start Date: 11/10/21 Status: Ordered terazosin 5 mg oral capsule 1, capsule, By Mouth, Daily at bedtime, # 90 capsule, Refills 1, Route to Pharmacy Electronically, [facility], 160, cm, 01/30/22 5:01:00 [...] u/s 2009 5colo 2012 nl, repeat 2022 [address] normal, repeat 2010 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 8Methacholine challenge test 2014 positive for asthma. 9Dr. Batlan 2014 10Patient declines further PSA testing as of October 2015. Social History Social History Type Response Tobacco Other: quit age 52, smoked since age 22, 1/2 ppd. Sex
--- OUTSIDE RECORDS SUMMARY | 2024-05-22 07:12 | XMS_ITS | Continuity of Care Document ---
Author Organization [facility] Address [address] [place] [address]- Care Team Providers Care Facetor Name Role Phone Antony Pappas MD Primary Care Physician [phone] Encounter [facility] Date(s): 06/25/23 - 07/25/23 [facility] [address] [place] [address]- Allergies, Adverse Reactions, Alerts No Known Allergies Immunizations Given and Recorded Vaccine Date Status Refusal Reason pneumococcal 20-valent conjugate vaccine 12/31/22 Given [id number] 12y+ bivalent booster vax 06/10/22 Given influenza [...] (Td) 07/26/98 Given 1Result Comment: [facility] # 2 scheduled for 10/02/20 2Admin Note: given in clinic 3Admin Note: vis given 4Admin Note: BIOMEDICAL RADHA 5Admin Note: Biomedical Radha [facility] 6Admin Note: given in clinic Medications amLODIPine 2.5 mg oral tablet 1 tablet, By Mouth, Daily, # 90 tablet, 1 Refills, Maintenance, 07/17/23 12:36:00 EST, [facility], 160, cm, 05/17/23 [...] tablet, 1 Refills, Maintenance, 02/23/23 22:57:00 EDT, [facility], 160, cm, 12/31/22 9:21:00 EDT, Height, 65, kg, 04/28/22 7:07:00 EDT, Dry Weight Start Date: 02/23/23 Status: Ordered ergocalciferol 55915 iu oral capsule 1, capsule, By Mouth, Every week, # 5 capsule, Refills 11, Tot. Refills 11, Maintenance, 03/09/23 11:38:00 EDT, Route to Pharmacy Electronically, [facility], 160, cm, 12/31/22 9:21:00 EDT,Height, 65, kg, 04/28/22 7:07:00 EDT, Dry Weight Start Date: 03/09/23 Status: Ordered Farxiga 5 mg oral tablet 1 tablet, By Mouth, Daily, # 90 tablet, 3 Refills, Maintenance, 06/02/23 9:27:00 EST, [facility], 160, cm, 05/17/23 10:46:00 EDT, Height, 65, kg, 04/28/22 7:07:00 EDT, Dry Weight Start Date: 06/02/23 Stop Date: 05/27/24 Status: Ordered finasteride 1 mg oral tablet 1 tablet = 1 mg, By Mouth, Daily, Stop Flomax and continue terazosin, # 30 tablet, 1 Refills, Maintenance, 07/13/23 15:40:00 EST, Tablet, [facility], Partial fill upon [...] 05/27/22 18:05:00 EDT, Route to Pharmacy Electronically, [facility], 160, cm, 05/01/22 8:19:00 EDT, Height, 65, kg, 04/28/22 7:07:00 EDT, Dry Weight Start Date: 05/27/22 Status: Ordered glipiZIDE 10 mg oral tablet 1 tablet, By Mouth, 2 times a day, # 180 tablet, 3 Refills, Maintenance, 09/22/22 12:28:00 EST, [facility], 160, cm, 09/09/22 14:01:00 EST, Height, 65, kg, 04/28/22 7:07:00 EDT, Dry Weight Start Date: 09/22/22 Status: Ordered metoprolol 50 mg oral tablet, extended release 50 mg, 1, tablet, By Mouth, Daily, # 90 tablet, Refills 3, Tot. Refills 3, Maintenance, 09/25/20 15:22:00 EST, Route to Pharmacy Electronically, [facility], Partial fill upon patient request if the prescription is for a schedule II opioid d... Start Date: 09/25/20 Status: Ordered Metoprolol Succinate ER 50 mg oral tablet, extended release 1 tablet, By Mouth, Daily, # 90 tablet, 3 Refills, Maintenance, 10/10/22 20:33:00 EDT, [facility], 160, cm, 09/24/22 9:03:00 EST, Height, 65, kg, 04/28/22 7:07:00 EDT, Dry Weight Start Date: 10/10/22 Status: Ordered montelukast 10 mg oral tablet 1, tablet, By Mouth, Daily, # 30 tablet, Refills 5, Tot. Refills 5, Maintenance, 06/28/23 10:39:00 EST, Route to Pharmacy Electronically, [facility], 160, cm, 05/17/23 10:46:00 EDT, Height, 65, kg, 04/28/22 7:07:00 EDT, Dry Weight Start Date: 06/28/23 Status: Ordered Pen [place], 30 G x 8 mm BD Ultra [...] 10:21:00 EDT, Aerosol, Route to Pharmacy Electronically, [id number], [facility], 159, cm, 11/10/21 9:57:00 EDT, H... Start Date: 11/10/21 Status: Ordered terazosin 5 mg oral capsule 1, capsule, By Mouth, Daily at bedtime, # 90 capsule, Refills 1, Maintenance, 02/02/23 10:35:00 EDT, Route to Pharmacy Electronically, [facility], 160, cm, 12/31/22 9:21:00 EDT, Height, 65, kg, 04/28/22 7:07:00 EDT, Dry Weight Start Date: 02/02/23 Status: Ordered torsemide 20 mg oral tablet 2 tablet = 40 mg, By Mouth, Daily, # 180 tablet, 3 Refills, Maintenance, 09/09/22 14:25:00 EST, [facility], Partial fill upon [...] 5 each, 5 Refills, Maintenance, 03/22/23 15:46:00 [facility], Partial fill upon patient request if the [...] u/s 2009 5colo 2012 nl, repeat 2022 50492 normal, repeat 2010 7Status post CABG ??1. [...] Pt will not have BS's < 70 (alf) Start Jeronimo e:03/12/23 End Date:06/11/23 Status:Met Progression:Not Met Patient Care team information Care Team Personnel Name: Eliza Alejandre RN Position: [facility] RN Member Role: Primary Care Nurse Name: Breanna Moreno Position: [facility] Outreach Member Role: Lifetime Consulting Physician Name: Elyse LEE, Antony Ospina Position: [facility] Physician - Primary Care Member Role: PCP Address: Address: [address] [place] [address]- [place] Name: Silvia Lawrence RN Position: [facility] RN Member Role: Primary Care Nurse Name: Sahra ([employer]) Sarah Position: [facility] double needle operator Member Role: Physician Assistant Name: Laura Chapin RN Position: [facility] RN Member Role: Primary Care Nurse Name: Conrad MANAGEMENT ASSISTANTLenora Position: Reference Physician Member Role: Primary Care Nurse Address: Address: [address] [place] [id number]- [place] Name: Carrol Strauss RN Position: [facility] AMB Nurse Member Role: Primary Care Nurse Name: Claire Carr RN Position: [facility] RN Member Role: Primary Care Nurse Name: Rachel Robledo RN Position: [facility] RN Member Role: Primary Care Nurse Name: Richa Owens RN Position: [facility] RN Member Role: Primary Care Nurse Care Team Related Persons Name: J LUIS HOFF Address: [address] [place] [address] Name: HARVINDER FRANCISCO Address: home [address] [place] [address]
--- OUTSIDE RECORDS SUMMARY | 2024-05-22 07:12 | XMS_ITS | Continuity of Care Document ---
Author Organization [facility] Address [address] [place] [address]- Care Team Providers Care Interior Designer Name Role Phone Elyse LEE, Antony Ospina Primary Care Physician [phone] Encounter [facility] [place] Date(s): 06/27/20 - 10/25/20 [facility] [address] [place] [address] Attending Physician: Pepe Junior MD Admitting Physician: [...] tetanus-diphtheria toxoids (Td) 07/26/98 Given 1Result Comment: [facility] # 2 scheduled for 10/02/20 2Admin Note: given in clinic 3Admin Note: vis given 4Admin Note: BIOMEDICAL RADHA 5Admin Note: Biomedical Radha [facility] 6Admin Note: given in clinic Medications amLODIPine 2.5 mg oral tablet 2.5 mg, 1, tablet, By Mouth, Daily, # 30 tablet, Refills 11, Tot. Refills 11, Maintenance, 06/07/2011:56:00 EST, Route to Pharmacy Electronically, [facility], Partial fill upon patient [...] 1 Refills, Maintenance, 08/01/20 9:55:00 EST, Tablet, [facility], 159, cm, 07/10/20 11:05:00 EST, Height Start Date: 08/01/20 Status: Ordered Breo Ellipta 100 mcg-25 mcg/inh inhalation powder 1 puffs, Inhalation, Daily, In place of QVAR 90 day supply, # 3 each, 1 Refills, Maintenance, 10/25/20 7:59:00 EDT, Powder, [facility], 1 puffs Inhalation Daily,Instr:In place of QVAR; 90 day supply, 159, cm, 10/10/20 12:46:00 EDT, Height Start Date: 10/25/20 Status: Ordered ergocalciferol 39846 iu oral capsule 50,000 International_Units, 1, capsule, By Mouth, Every week, # 5 capsule, Refills 5, Tot. Refills 5, Maintenance, 05/29/20 13:54:00 EST, Route to Pharmacy Electronically, [facility], 159,cm, 05/24/20 8:57:00 EDT, [...] 0 Refills, Maintenance, 08/27/20 8:20:00 EST, Tablet, [facility], 159, cm, 07/10/20 11:05:00 [...] 10/10/20 13:15:00 EDT, Route to Pharmacy Electronically, [facility], 159, cm, 10/10/20 12:46:00 EDT, Height Start Date: 10/10/20 Stop Date: 10/05/21 Status: Ordered metoprolol 50 mg oral tablet, extended release 50 mg, 1, tablet, By Mouth, Daily, # 90 tablet, Refills 3, Tot. Refills 3, Maintenance, 09/25/20 15:22:00 EST, Route to Pharmacy Electronically, [facility], Partial fill upon patient request if the prescription is for a schedule II opioid d... Start Date: 09/25/20 Status: Ordered ProAir HFA 90 mcg/inh inhalation aerosol with adapter 2, puffs, Inhalation, Every 6 hours, PRN, # 8.5 Gm, Refills 1, Tot. Refills 1, Maintenance, 02/01/19 10:58:44 EDT, Aerosol, Route to Pharmacy Electronically, [id number], [place] [address] Start Date: 02/01/19 Status: Ordered ReliOn/Novolin N 100 units/mL subcutaneous injection See Instructions, INJECT 18 UNITS SUBCUTANEOUSLY IN THE MORNING AND 9 UNITS IN THE EVENING, # 10 mL, 1 Refills, 10/08/20 13:42:00 EDT, [place] [id number], 159, cm, 07/10/20 11:05:00 EST, Height Start Date: 10/08/20 Status: Ordered sildenafil 25 mg oral tablet See Instructions, PRN Other, 1 tablet By Mouth Daily as needed prior to sexual intercourse, # 2 tablet, 11 Refills, Maintenance, 06/25/20 15:44:00 EST, Tablet, [facility], 159, cm, 06/25/20 9:48:00 EST, Height Start Date: 06/25/20 Status: Ordered terazosin 5 mg oral capsule See Instructions, Take 1 capsule by mouth once daily at bedtime, # 90 capsule, Refills 0, Maintenance, Instructions Replace Required Details, Route to Pharmacy Electronically, [place] [id number], 159, cm, 10/10/20 12:46:00 EDT, Height Start Date: 10/10/20 Status: Ordered terazosin 5 mg oral capsule 5 mg, 1, capsule, By Mouth, Daily at bedtime, # 90 capsule, Refills 1, Tot. Refills 1, Maintenance,04/15/20 14:45:00 EDT, Route to Pharmacy Electronically, [facility], 159, cm, 01/30/20 15:17:00 [...] u/s 2009 5colo 2012 nl, repeat 2022 13706 normal, repeat 2010 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 8Methacholine challenge test 2014 positive for asthma. 9Dr. Misa 2014 10Patient declines further PSA testing as of October 2015. Social History Social History Type Response Smoking Status Former smoker; Other : Smoking age 55. social smoker; entered on: 09/29/16 Sex Male
--- OUTSIDE RECORDS SUMMARY | 2024-05-22 07:13 | XMS_ITS | Continuity of Care Document ---
Author Organization [facility] Address [address] [place] [address]- Care Team Providers Care Journalism Instructor Name Role Phone Antony Pappas MD Primary Care Physician [phone] Encounter [facility] [place] Date(s): 01/02/20 - 02/11/[address] [address]- [facility] Attending Physician: Pepe Junior MD Admitting Physician: [...] Note: BIOMEDICAL RADHA 4Admin Note: Biomedical Radha [facility] 5Admin Note: given in clinic Medications aspirin 81 mg oral delayed release tablet 81 mg, 1, tablet, By Mouth, Daily, # 30 tablet, Refills 0, Maintenance, 09/07/18 15:22:30 EST Start Date: 09/07/18 Status: Ordered atorvastatin 80 mg oral tablet 1 tablet = 80 mg, By Mouth, Daily, # 90 tablet, 1 Refills, Maintenance, 01/10/20 15:14:00 EDT, Tablet, [facility], 159, cm, 01/05/20 10:36:00 EDT, Height Start Date: 01/10/20 Status: Ordered Breo Ellipta 100 mcg-25 mcg/inh inhalation powder 1 puffs, Inhalation, Daily, In place of QVAR 90 day supply, # 3 each, 1 Refills, Maintenance, 09/27/19 10:26:00 EST, Powder, [facility], 1 puffs Inhalation [...] 12/06/19 8:34:00 EDT, Route to Pharmacy Electronically, [facility], 159, cm, 12/06/19 7:56:00 EDT, Height Start Date: 12/06/19 Stop Date: 11/30/20 Status: Ordered glipiZIDE 10 mg oral tablet 1 tablet = 10 mg, By Mouth, 2 times a day, # 180 tablet, 1 Refills, Maintenance, 08/29/19 11:00:00 EST, Tablet, [facility], 159, cm, 05/05/19 10:45:00 [...] 01/30/20 15:07:00 EDT, Route to Pharmacy Electronically, [facility], 159, cm, 01/24/20 15:11:00 EDT, Height Start Date: 01/30/20 Status: Ordered lisinopril 20 mg oral tablet 20 mg, 1, tablet, By Mouth, Daily, # 30 tablet, Refills 0, Tot. Refills 0, Maintenance, 11/01/18 13:59:18 EDT, Route to Pharmacy Electronically, [id number], [facility] [id number] Start Date: 11/01/18 Status: Ordered metoprolol 25 mg oral tablet 25 mg, 1, tablet, By Mouth, 2 times a day, # 180 tablet, Refills 1, Tot. Refills 1, Maintenance, 08/29/19 11:02:00 EST, Route to Pharmacy Electronically, [facility], No change from last Rx. from 02/06/19, 159, cm, 05/05/19 10:45:00 EDT, Height Start Date: 08/29/19 Status: Ordered ProAir HFA 90 mcg/inh inhalation aerosol with adapter 2, puffs, Inhalation, Every 6 hours, PRN, # 8.5 Gm, Refills 1, Tot. Refills 1, Maintenance, 02/01/19 10:58:44 EDT, Aerosol, Route to Pharmacy Electronically, [id number], [facility] Start Date: 02/01/19 Status: Ordered ReliOn/Novolin N 100 units/mL subcutaneous injection See Instructions, INJECT 18 UNITS SUBCUTANEOUSLY IN THE MORNING AND 9 IN THE EVENING, # 10 mL, 2 Refills, Maintenance, 01/13/20 15:26:00 EDT, [facility], 90 day, 159, cm, 01/05/20 10:36:00EDT, Height Start Date: 01/13/20 Status: Ordered sildenafil 25 mg oral tablet See Instructions, PRN Other, 1 tablet By Mouth Daily as needed prior to sexual intercourse, # 2 tablet, 11 Refills, Maintenance, 01/24/20 15:13:00 EDT, Tablet, [facility], 159, cm, 01/24/20 15:11:00 EDT, Height Start Date: 01/24/20 Status: Ordered terazosin 5 mg oral capsule 5 mg, 1, capsule, By Mouth, Daily at bedtime, # 90 capsule, Refills 0, Tot. Refills 0, Maintenance,12/31/19 10:28:00 EDT, Route to Pharmacy Electronically, [facility], 159, cm, 12/06/19 7:56:00 EDT, Height Start Date: 12/31/19 Status: Ordered Vitamin D 44837 iu oral capsule 50,000 International_Units, 1, capsule, By Mouth, Every week, # 5 capsule, Refills 11, Tot. [id number], Maintenance, 05/05/19 10:57:40 EDT, Route to Pharmacy Electronically, [id number], [facility] Start Date: 05/05/19 Status: [...] u/s 2009 5colo 2012 nl, repeat 2022 64135 normal, repeat 2010 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 8Methacholine challenge test 2014 positive for asthma. 9Dr. Misa 2014 10Patient declines further PSA testing as of October 2015. Social History Social History Type Response Smoking Status Former smoker; Other : Smoking age 55. social smoker; entered on: 09/29/16 Sex Male
--- OUTSIDE RECORDS SUMMARY | 2024-05-22 07:13 | XMS_ITS | Continuity of Care Document ---
Author Organization [facility] Address [address] [place] [address]- Care Team Providers Care Teacher Preschool Name Role Phone Antony Pappas MD Primary Care Physician Encounter [facility] Date(s): 01/30/20 - 02/29/20 [facility] Adult [address] [place] [address]- [facility] Attending Physician: Admtr, Ar8 Allergies, Adverse Reactions, [...] Note: BIOMEDICAL RADHA 4Admin Note: Biomedical Radha [facility] 5Admin Note: given in clinic Medications aspirin 81 mg oral delayed release tablet 81 mg, 1, tablet, By Mouth, Daily, # 30 tablet, Refills 0, Maintenance, 09/07/18 15:22:30 EST Start Date: 09/07/18 Status: Ordered atorvastatin 80 mg oral tablet 1 tablet = 80 mg, By Mouth, Daily, # 90 tablet, 1 Refills, Maintenance, 01/10/20 15:14:00 EDT, Tablet, [facility], 159, cm, 01/05/20 10:36:00 EDT, Height Start Date: 01/10/20 Status: Ordered Breo Ellipta 100 mcg-25 mcg/inh inhalation powder 1 puffs, Inhalation, Daily, In place of QVAR 90 day supply, # 3 each, 1 Refills, Maintenance, 09/27/19 10:26:00 EST, Powder, [facility], 1 puffs Inhalation [...] 12/06/19 8:34:00 EDT, Route to Pharmacy Electronically, [facility], 159, cm, 12/06/19 7:56:00 EDT, Height Start Date: 12/06/19 Stop Date: 11/30/20 Status: Ordered glipiZIDE 10 mg oral tablet 1 tablet = 10 mg, By Mouth, 2 times a day, # 180 tablet, 1 Refills, Maintenance, 08/29/19 11:00:00 EST, Tablet, [facility], 159, cm, 05/05/19 10:45:00 [...] 01/30/20 15:07:00 EDT, Route to Pharmacy Electronically, [facility], 159, cm, 01/24/20 15:11:00 EDT, Height Start Date: 01/30/20 Status: Ordered lisinopril 20 mg oral tablet 20 mg, 1, tablet, By Mouth, Daily, # 30 tablet, Refills 0, Tot. Refills 0, Maintenance, 11/01/18 13:59:18 EDT, Route to Pharmacy Electronically, [id number], [facility] [id number] Start Date: 11/01/18 Status: Ordered Metoprolol Tartrate 25 mg oral tablet 1 tablet, By Mouth, 2 times a day, # 180 tablet, 0 Refills, Maintenance, 02/29/20 7:24:00 EDT, [facility], 159, cm, 01/30/20 15:17:00 EDT, Height Start Date: 02/29/20 Status: Ordered ProAir HFA 90 mcg/inh inhalation aerosol with adapter 2, puffs, Inhalation, Every 6 hours, PRN, # 8.5 Gm, Refills 1, Tot. Refills 1, Maintenance, 02/01/19 10:58:44 EDT, Aerosol, Route to Pharmacy Electronically, [id number], [facility] Start Date: 02/01/19 Status: Ordered ReliOn/Novolin N 100 units/mL subcutaneous injection See Instructions, INJECT 18 UNITS SUBCUTANEOUSLY IN THE MORNING AND 9 IN THE EVENING, # 10 mL, 2 Refills, Maintenance, 01/13/20 15:26:00 EDT, [facility], 90 day, 159, cm, 01/05/20 10:36:00EDT, Height Start Date: 01/13/20 Status: Ordered sildenafil 25 mg oral tablet See Instructions, PRN Other, 1 tablet By Mouth Daily as needed prior to sexual intercourse, # 2 tablet, 11 Refills, Maintenance, 01/24/20 15:13:00 EDT, Tablet, [facility], 159, cm, 01/24/20 15:11:00 EDT, Height Start Date: 01/24/20 Status: Ordered terazosin 5 mg oral capsule 5 mg, 1, capsule, By Mouth, Daily at bedtime, # 90 capsule, Refills 0, Tot. Refills 0, Maintenance,12/31/19 10:28:00 EDT, Route to Pharmacy Electronically, [facility], 159, cm, 12/06/19 7:56:00 EDT, Height Start Date: 12/31/19 Status: Ordered Vitamin D 42290 iu oral capsule 50,000 International_Units, 1, capsule, By Mouth, Every week, # 5 capsule, Refills 11, Tot. [id number], Maintenance, 05/05/19 10:57:40 EDT, Route to Pharmacy Electronically, [id number], [facility] Start Date: 05/05/19 Status: [...] u/s 2009 5colo 2012 nl, repeat 2022 89604 normal, repeat 2010 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 8Methacholine challenge test 2014 positive for asthma. 9Dr. Misa 2014 10Patient declines further PSA testing as of October 2015. Social History Social History Type Response Smoking Status Former smoker; Other : Smoking age 55. social smoker; entered on: 09/29/16 Sex Male
--- OUTSIDE RECORDS SUMMARY | 2024-05-22 07:13 | XMS_ITS | Continuity of Care Document ---
Author Organization [facility] Address [address] [place] [address]- Care Team Providers Care Chief Of Staff Doctor Name Role Phone Antony Pappas MD Primary Care Physician [phone] Encounter [facility] [place] Date(s): 09/09/23 - 10/09/23 [facility] [address] [place] [address]- Allergies, Adverse Reactions, Alerts Substance Reaction Severity [...] n pneumococcal 20-valent conjugate vaccine 12/31/22 Given [id number] 12y+ bivalent booster vax 06/10/22 Given SARS-CoV-2 [...] tetanus-diphtheria toxoids (Td) 07/26/98 Given 1Result Comment: [facility] # 2 scheduled for 10/02/20 2Admin Note: given in clinic 3Admin Note: vis given 4Admin Note: BIOMEDICAL RADHA 5Admin Note: Biomedical Radha [facility] 6Admin Note: given in clinic Medications amLODIPine 2.5 mg oral tablet 1 tablet, By Mouth, Daily, # 90 tablet, 1 Refills, Maintenance, 07/17/23 12:36:00 EST, [facility], 160, cm, 05/17/23 10:46:00 [...] tablet, 1 Refills, Maintenance, 08/17/23 16:12:00 EST, [facility], 160, cm, 05/17/23 10:46:00 EDT, Height, 65, kg, 04/28/22 7:07:00 EDT, Dry Weight Start Date: 08/17/23 Status: Ordered ergocalciferol 70763 iu oral capsule 1, capsule, By Mouth, Every week, # 5 capsule, Refills 11, Tot. Refills 11, Maintenance, 03/09/23 11:38:00 EDT, Route to Pharmacy Electronically, [facility], 160, cm, 12/31/22 9:21:00 EDT,Height, 65, kg, 04/28/22 7:07:00 EDT, Dry Weight Start Date: 03/09/23 Status: Ordered Farxiga 5 mg oral tablet 1 tablet, By Mouth, Daily, # 90 tablet, 3 Refills, Maintenance, 06/02/23 9:27:00 EST, [facility], 160, cm, 05/17/23 10:46:00 [...] Replace Required Details, Route to Pharmacy Electronically, [facility], 160, cm, 0... Start Date: 09/01/23 Status: Ordered glipiZIDE 10 mg oral tablet See Instructions, Take 1 tablet by mouth twice daily, # 180 tablet, 0 Refills, Maintenance, 09/20/23 9:48:00 EST, [facility], 160, cm, 09/08/23 11:26:00 EST, Height, 63, kg, 09/08/23 10:05:00 EST, Dry Weight Start Date: 09/20/23 Status: Ordered Metoprolol Succinate ER 50 mg oral tablet, extended release 1 tablet, By Mouth, Daily, # 90 tablet, 0 Refills, Maintenance, 09/27/23 7:45:00 EST, [facility], 160, cm, 09/08/23 11:26:00 EST, Height, 63, kg, 09/08/23 10:05:00 EST, Dry Weight Start Date: 09/27/23 Status: Ordered montelukast 10 mg oral tablet 1, tablet, By Mouth, Daily, # 30 tablet, Refills 5, Tot. Refills 5, Maintenance, 06/28/23 10:39:00 EST, Route to Pharmacy Electronically, [facility], 160, cm, 05/17/23 10:46:00 EDT, Height, 65, kg, 04/28/22 7:07:00 EDT, Dry Weight Start Date: 06/28/23 Status: Ordered Pen [place], 31 G x 8 mm BD Ultra [...] 10:21:00 EDT, Aerosol, Route to Pharmacy Electronically, [id number], [facility], 159, cm, 11/10/21 9:57:00 EDT, H... Start Date: 11/10/21 Status: Ordered torsemide 20 mg oral tablet 2 tablet, By Mouth, Daily, # 180 tablet, 1 Refills, Maintenance, 08/26/23 21:25:00 EST, [facility], 160, cm, 05/17/23 10:46:00 [...] 5 each, 5 Refills, Maintenance, 09/30/23 14:38:00 [facility], [facility], Partial fill [...] u/s 2009 5colo 2012 nl, repeat 2022 04006 normal, repeat 2010 7Status post CABG ??1. [...] Pt will not have BS's < 70 (care home) Start Jeronimo e:03/12/23 End Date:06/11/23 Status:Met Progression:Not Met Patient Care team information Care Team Personnel Name: Eliza Alejandre RN Position: [facility] RN Member Role: Primary Care Nurse Name: Breanna Moreno Position: [facility] Outreach Member Role: Lifetime Consulting Physician Name: Antony Pappas MD Position: [facility] Physician - Primary Care Member Role: PCP Address: Address: [address] [place] [address]- [place] Name: Silvia Lawrence RN Position: [facility] RN Member Role: Primary Care Nurse Name: Sahra (Baytrisha) Sarah Position: [facility] business improvement manager Member Role: Calciner Feeder Name: Laura Chapin RN Position: [facility] RN Member Role: Primary Care Nurse Name: Lenora Martines NP Position: Reference Physician Member Role: Primary Care Nurse Address: Address: [address] [place] [address]- [place] Name: Carrol Strauss RN Position: [facility] AMB Nurse Member Role: Primary Care Nurse Name: Claire Carr RN Position: [facility] RN Member Role: Primary Care Nurse Name: Rachel Robledo RN Position: [facility] RN Member Role: Primary Care Nurse Name: Richa Owens RN Position: S RN Member Role: Primary Care Nurse Care Team Related Persons Name: J LUIS HOFF Address: home [address] [place] [address] Name: HARVINDER FRANCISCO Address: home [address] [place] [address]
--- OUTSIDE RECORDS SUMMARY | 2024-05-22 07:13 | XMS_ITS | Continuity of Care Document ---
Author Organization [facility] Address [address] [place] [address]- Care Team Providers Care Underwriting Support Manager Name Role Phone Antony Pappas MD Primary Care Physician [phone] [place] [facility] [place]23 - 01/21/24 [facility] Adult [address] [place] [address]- Allergies, Adverse Reactions, Alerts Substance Reaction Severity [...] n pneumococcal 20-valent conjugate vaccine 12/31/22 Given [id number] 12y+ bivalent booster vax 06/10/22 Given SARS-CoV-2 [...] tablet, 1 Refills, Maintenance, 01/15/24 9:48:00 EDT, [facility], 160, cm, 01/07/24 13:01:00 EDT, [...] tablet, 1 Refills, Maintenance, 08/17/23 16:12:00 EST, [facility], 160, cm, 05/17/23 10:46:00 EDT, Height, 65, kg, 04/28/22 7:07:00 EDT, Dry Weight Start Date: 08/17/23 Status: Ordered Azithromycin 5 Day Dose Pack 250 mg oral tablet 1 pack/packet, By Mouth, Once, as directed on package labeling, # 6 tablet, 0 Refills, Soft Stop, 01/20/24 9:03:00 EDT, Tablet, [facility], Partial fill upon patient request if the prescription is for a schedule II opioid drug., 160, cm, 06... Start Date: 01/20/24 Status: Ordered ergocalciferol 79281 iu oral capsule 1, capsule, By Mouth, Every week, # 5 capsule, Refills 11, Tot. Refills 11, Maintenance, 03/09/23 11:38:00 EDT, Route to Pharmacy Electronically, [facility], 160, cm, 12/31/22 9:21:00 EDT,Height, 65, kg, 04/28/22 7:07:00 EDT, Dry Weight Start Date: 03/09/23 Status: Ordered Farxiga 10 mg oral tablet 1 tablet = 10 mg, By Mouth, Daily, Replaces 5mg daily now should be 10mg daily., # 30 tablet, 5 Refills, Maintenance, 01/21/24 11:14:00 EDT, Tablet, [facility], Partial fill upon patient request [...] Replace Required Details, Route to Pharmacy Electronically, [facility], 160, cm, ... Start Date: 09/01/23 Status: Ordered glipiZIDE 10 mg oral tablet 1 tablet, By Mouth, 2 times a day, # 180 tablet, 1 Refills, Maintenance, 12/15/23 14:06:00 EDT, [facility], 160, cm, 09/28/23 8:15:00 EST, Height, 63, kg, 09/08/23 10:05:00 EST, Dry Weight Start Date: 12/15/23 Status: Ordered Metoprolol Succinate ER 50 mg oral tablet, extended release 1.5, By Mouth, Daily, total dose Take 75 mg daily., # 45 tablet, 0 Refills, Maintenance, 01/04/24 13:51:00 EDT, [facility], 160, cm, 09/28/23 8:15:00 EST, Height, 63, kg, 09/08/23 10:05:00EST, Dry Weight Start Date: 01/04/24 Stop Date: 02/03/24 Status: Ordered montelukast 10 mg oral tablet 1, tablet, By Mouth, Daily, # 30 tablet, Refills 5, Maintenance, 12/22/23 14:09:00 EDT, Route to Pharmacy Electronically, [facility], 160, cm, 09/28/23 8:15:00 EST, Height, 63, kg, 09/08/23 10:05:00 EST, Dry Weight Start Date: 12/22/23 Status: Ordered Pen [place], 31 G x 8 mm BD Ultra [...] 10:21:00 EDT, Aerosol, Route to Pharmacy Electronically, [id number], [facility], 159, cm, 11/10/21 9:57:00 EDT, H... Start Date: 11/10/21 Status: Ordered torsemide 20 mg oral tablet 2 tablet, By Mouth, Daily, # 180 tablet, 1 Refills, Maintenance, 08/26/23 21:25:00 EST, [facility], 160, cm, 05/17/23 10:46:00 EDT, Height, 65, kg, 04/28/22 7:07:00 EDT, Dry Weight Start Date: 08/26/23 Status: Ordered Trelegy Ellipta 200 mcg-62.5 mcg-25 mcg/inh inhalation powder 1 puffs, Inhalation, Daily, 1 month supply, # 1 each, 5 Refills, Maintenance, 11/09/23 10:49:00 EDT, [facility], Partial fill upon patient request if the prescription is for a schedule II opioid drug., 1 puffs Inhalation Daily,Instr:1 month... Start Date: 11/09/23 Status: Ordered Tresiba FlexTouch 200 units/mL subcutaneous solution See Instructions, 76 units daily and increase 2 units every 3 days until FBS < 130 Max dose 90 units daily, # 5 each, 5 Refills, Maintenance, 09/30/23 14:38:00 EST, [facility], Partial fill upon patient request [...] u/s 2009 5colo 2012 nl, repeat 2022 25814 normal, repeat 2010 7Status post CABG ??1. [...] Name: Antony Pappas MD Position: [facility] Physician - Primary Care Member Role: PCP Address: Address: [address] [place] [address]- [place] Name: Silvia Lawrence RN Position: [facility] RN Member Role: Primary Care Nurse Name: Sahra (Baytrisha) Sarah Position: [facility] technical trainer Member Role: Diesel Truck Mechanic Name: Laura Chapin RN Position: [facility] RN Member Role: Primary Care Nurse Name: Lenora Martines NP Position: Reference Physician Member Role: Primary Care Nurse Address: Address: [address] [address]- Name: Carrol Strauss RN Position: [facility] [...] Name: J LUIS HOFF Address: home [address] [place] [address] Name: HARVINDER FRANCISCO Address: home [address] [place] [address]
--- OUTSIDE RECORDS SUMMARY | 2024-05-22 07:13 | XMS_ITS | Continuity of Care Document ---
Author Organization [facility] Address [address] [place] [address]- Care Team Providers Care Track Liner Operator Name Role Phone Antony Pappas MD Primary Care Physician [phone] Encounter [facility] Date(s): 01/30/22 - 03/01/22 [facility] [address] [place] [address]- Allergies, Adverse Reactions, Alerts No Known Allergies [...] 10:53:00 EST, Powder, Route to Pharmacy Electronically, [id number], [facility], 159,... Start Date: 09/26/21 Status: Ordered amLODIPine 2.5 mg oral tablet 1 tablet, By Mouth, Daily, # 90 tablet, 1 Refills, [facility], 159, cm, 11/26/21 11:06:00 EDT, Height Start Date: 12/09/21 Status: Ordered aspirin 81 mg oral delayed release tablet 81 mg, 1, tablet, By Mouth, Daily, # 30 tablet, Refills 0, Maintenance, 09/07/18 15:22:30 EST Start Date: 09/07/18 Status: Ordered atorvastatin 80 mg oral tablet 1 tablet, By Mouth, Daily, # 90 tablet, 1 Refills, Maintenance, 02/14/22 11:19:00 EDT, [facility], 160, cm, 02/02/22 8:07:00 EDT, Height Start Date: 02/14/22 Status: Ordered ergocalciferol 36016 iu oral capsule 1, capsule, By Mouth, Every week, # 5 capsule, Refills 11, Route to Pharmacy Electronically, [facility], 159, cm, 12/29/21 10:39:00 EDT, [...] capsule, Refills 3, Route to Pharmacy Electronically, [facility], 159, cm, 02/20/21 6:56:00 EDT, Height Start Date: 05/20/21 Status: Ordered glipiZIDE 10 mg oral tablet 1 tablet, By Mouth, 2 times a day, # 180 tablet, 1 Refills, [facility], 159, cm, 11/21/21 11:16:00 EDT, [...] 09/25/20 15:22:00 EST, Route to Pharmacy Electronically, [facility], Partial fill upon patient request if the prescription is for a schedule II opioid d... Start Date: 09/25/20 Status: Ordered ProAir HFA 90 mcg/inh inhalation aerosol with adapter 2, puffs, Inhalation, Every 6 hours, PRN, # 8.5 Gm, Refills 6, Tot. Refills 6, Maintenance, 11/10/21 10:21:00 EDT, Aerosol, Route to Pharmacy Electronically, [id number], [facility], 159, cm, 11/10/21 9:57:00 EDT, H... Start Date: 11/10/21 Status: Ordered ReliOn/Novolin N 100 units/mL subcutaneous injection See Instructions, INJECT 18 UNITS SUBCUTANEOUSLY IN THE MORNING AND 9 IN THE EVENING, # 10 mL, 5 Refills, [facility], 159, cm, 09/04/21 13:27:00 EST, Height Start Date: 10/06/21 Status: Ordered sildenafil 25 mg oral tablet 1 tablet, By Mouth, Daily, PRN NEEDED, PRIOR TO SEXUAL INTERCOURSE., # 2 tablet, 11 Refills, [facility], 159, cm, 11/26/21 11:06:00 EDT, Height Start Date: 12/08/21 Status: Ordered Singulair 10 mg oral tablet 10 mg, 1, tablet, By Mouth, Daily, # 30 tablet, Refills 6, Tot. Refills 6, Maintenance, 11/10/21 10:21:00 EDT, Route to Pharmacy Electronically, [facility], Partial fill upon patient request if the prescription is for a schedule II opioid d... Start Date: 11/10/21 Status: Ordered terazosin 5 mg oral capsule 1, capsule, By Mouth, Daily at bedtime, # 90 capsule, Refills 1, Route to Pharmacy Electronically, [facility], 160, cm, 01/30/22 5:01:00 EDT, [...] u/s 2009 5colo 2012 nl, repeat 2022 13888 normal, repeat 2010 7Status post CABG ??1. 2016. 8Methacholine challenge test 2014 positive for asthma. 9Dr. Batlan 2014 10Patient declines further PSA testing as of October 2015. Social History Social History Type Response Tobacco Other: quit age 52, smoked since age 22, 1/2 ppd. Sex
--- OUTSIDE RECORDS SUMMARY | 2024-05-22 07:13 | XMS_ITS | Continuity of Care Document ---
Author Organization [facility] Address [address] [place] [address]- Care Team Providers Care Digital Publishing Specialist Name Role Phone Antony Pappas MD Primary Care Physician Encounter [facility] Date(s): 03/23/23 - 03/30/23 [facility] [address] [place] [address]- Attending Physician: Not on Staff, Attending MD Allergies, Adverse Reactions, Alerts No Known Allergies Immunizations Given and Recorded Vaccine Date Status Refusal Reason pneumococcal 20-valent conjugate vaccine 12/31/22 Given [id number] 12y+ bivalent booster vax 06/10/22 Given influenza [...] 10/02/20 Recorded SARS-CoV-2 (COVID-19) mRNA BNT-162b2 vac 09/11/20 Recorded SARS-CoV-2 (COVID-19) mRNA BNT-162b2 vac [...] (Td) 07/26/98 Given 1Result Comment: [facility] # 2 scheduled for 10/02/20 2Admin Note: given in clinic 3Admin Note: vis given 4Admin Note: BIOMEDICAL RADHA 5Admin Note: Biomedical Radha [facility] 6Admin Note: given in clinic Medications amLODIPine 2.5 mg oral tablet 1 tablet, By Mouth, Daily, # 90 tablet, 1 Refills, Maintenance, 01/15/23 15:39:00 EDT, [facility], 160, cm, 12/31/22 9:21:00 [...] tablet, 1 Refills, Maintenance, 02/23/23 22:57:00 EDT, [facility], 160, cm, 12/31/22 9:21:00 EDT, Height, 65, kg, 04/28/22 7:07:00 EDT, Dry Weight Start Date: 02/23/23 Status: Ordered ergocalciferol 81231 iu oral capsule 1, capsule, By Mouth, Every week, # 5 capsule, Refills 11, Tot. Refills 11, Maintenance, 03/09/23 11:38:00 EDT, Route to Pharmacy Electronically, [facility], 160, cm, 12/31/22 9:21:00 EDT,Height, 65, kg, 04/28/22 7:07:00 EDT, Dry Weight Start Date: 03/09/23 Status: Ordered Farxiga 5 mg oral tablet 1 tablet, By Mouth, Daily, # 30 tablet, 2 Refills, Maintenance, 03/06/23 23:35:00 EDT, [facility], 160, cm, 12/31/22 9:21:00 [...] 05/27/22 18:05:00 EDT, Route to Pharmacy Electronically, [facility], 160, cm, 05/01/22 8:19:00 EDT, Height, 65, kg, 04/28/22 7:07:00 EDT, Dry Weight Start Date: 05/27/22 Status: Ordered glipiZIDE 10 mg oral tablet 1 tablet, By Mouth, 2 times a day, # 180 tablet, 3 Refills, Maintenance, 09/22/22 12:28:00 EST, [facility], 160, cm, 09/09/22 14:01:00 EST, Height, 65, kg, 04/28/22 7:07:00 EDT, Dry Weight Start Date: 09/22/22 Status: Ordered metoprolol 50 mg oral tablet, extended release 50 mg, 1, tablet, By Mouth, Daily, # 90 tablet, Refills 3, Tot. Refills 3, Maintenance, 09/25/20 15:22:00 EST, Route to Pharmacy Electronically, [facility], Partial fill upon patient request if the prescription is for a schedule II opioid d... Start Date: 09/25/20 Status: Ordered Metoprolol Succinate ER 50 mg oral tablet, extended release 1 tablet, By Mouth, Daily, # 90 tablet, 3 Refills, Maintenance, 10/10/22 20:33:00 EDT, [facility], 160, cm, 09/24/22 9:03:00 EST, Height, 65, kg, 04/28/22 7:07:00 EDT, Dry Weight Start Date: 10/10/22 Status: Ordered montelukast 10 mg oral tablet 1, tablet, By Mouth, Daily, # 30 tablet, Refills 5, Maintenance, 01/15/23 16:27:00 EDT, Route to Pharmacy Electronically, [facility], 160, cm, 12/31/22 9:21:00 EDT, Height, 65, kg, 04/28/22 7:07:00 EDT, Dry Weight Start Date: 01/15/23 Status: Ordered Pen [place], 30 G x 8 mm BD Ultra [...] 10:21:00 EDT, Aerosol, Route to Pharmacy Electronically, [id number], [facility], 159, cm, 11/10/21 9:57:00 EDT, H... Start Date: 11/10/21 Status: Ordered terazosin 5 mg oral capsule 1, capsule, By Mouth, Daily at bedtime, # 90 capsule, Refills 1, Maintenance, 02/02/23 10:35:00 EDT, Route to Pharmacy Electronically, [facility], 160, cm, 12/31/22 9:21:00 EDT, Height, 65, kg, 04/28/22 7:07:00 EDT, Dry Weight Start Date: 02/02/23 Status: Ordered torsemide 20 mg oral tablet 2 tablet = 40 mg, By Mouth, Daily, # 180 tablet, 3 Refills, Maintenance, 09/09/22 14:25:00 EST, [facility], Partial fill upon [...] FlexTouch 200 units/mL subcutaneous solution See Instructions, Replaces 70/30 insulin: Take 70 units Subcutaneous Infusion Daily increase dose 2units q 3 days until FBS < 150 Max dose 70 units daily *can give 30 day supply, # 4 each, 5 Refills, Maintenance, 03/22/23 15:46:00 EDT, [facility]... Start Date: 03/22/23 Status: Ordered Problem List [...] u/s 2009 5colo 2012 nl, repeat 2022 50409 normal, repeat 2010 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 8Methacholine challenge test 2014 positive for asthma. 9Dr. Batlan 2014 10Patient declines further PSA testing as of October 2015. Social History Social History Type Response Tobacco Other: quit age 52, smoked since age 22, 1/2 ppd. Sex Patient Care team information Care Team Personnel Name: Eliza Alejandre RN Position: [facility] RN Member Role: Primary Care Nurse Name: Breanna Moreno Position: [facility] Outreach Member Role: Lifetime Consulting Physician Name: Antony Pappas MD Position: [facility] Physician - Primary Care Member Role: PCP Address: Address: [address] [place] [id number]- Name: Silvia Lawrence RN Position: [facility] RN Member Role: Primary Care Nurse Name: Sarah Bocanegra Position: [facility] sheeting puller Member Role: Sales Representative Printing Paper Name: Heather Pardo Position: [facility] TA Member Role: Lifetime Consulting Physician Name: Laura Chapin RN Position: [facility] RN Member Role: Primary Care Nurse Name: Lenora Martines NP Position: Reference Physician Member Role: Primary Care Nurse Address: Address: [address] [place] [phone]- [place] Name: Carrol Strauss RN Position: [facility] AMB Nurse Member Role: Primary Care Nurse Name: Claire Carr RN Position: [facility] RN Member Role: Primary Care Nurse Name: Rachel Robledo RN Position: S RN Member Role: Primary Care Nurse Name: Richa Owens RN Position: [facility] RN Member Role: Primary Care Nurse Care Team Related Persons Name: J LUIS HOFF Address: [address] [place] [address] Name: HARVINDER FRANCISCO Address: home [address] [place] [address]
--- OUTSIDE RECORDS SUMMARY | 2024-05-22 07:13 | XMS_ITS | Continuity of Care Document ---
Author Organization [facility] Address [address] [place] [address]- Care Team Providers Care Clinical Research Nurse Coordinator Name Role Phone Antony Pappas MD Primary Care Physician Encounter [facility] Date(s): 11/16/20 - 03/16/21 [facility] [address] [place], [place] [id number]- Attending Physician: Pepe Junior MD Admitting Physician: [...] toxoids (Td) 07/26/98 Given 1Result Comment: [facility] # 2 scheduled for 10/02/20 2Admin Note: given in clinic 3Admin Note: vis given 4Admin Note: BIOMEDICAL RADHA 5Admin Note: Biomedical Rad[facility] 6Admin Note: given in clinic Medications amLODIPine 2.5 mg oral tablet 2.5 mg, 1, tablet, By Mouth, Daily, # 30 tablet, Refills 11, Tot. Refills 11, Maintenance, 06/07/2011:56:00 EST, Route to Pharmacy Electronically, [facility], Partial fill upon patient request, [...] tablet, 1 Refills, Maintenance, 02/11/21 15:14:00 EDT, [facility], 159, cm, 11/27/20 15:59:00 EDT, Height Start Date: 02/11/21 Status: Ordered Breo Ellipta 100 mcg-25 mcg/inh inhalation powder 1 puffs, Inhalation, Daily, In place of QVAR 90 day supply, # 3 each, 1 Refills, Maintenance, 10/25/20 7:59:00 EDT, Powder, [facility], 1 puffs Inhalation Daily,Instr:In place of QVAR; 90 day supply, 159, cm, 10/10/20 12:46:00 EDT, Height Start Date: 10/25/20 Status: Ordered ergocalciferol 69672 iu oral capsule 1, capsule, By Mouth, Every week, # 5 capsule, Refills 12, Tot. Refills 0, Maintenance, 01/01/21 14:53:00 EDT, Route to Pharmacy Electronically, [facility], 159, cm, 11/27/20 15:59:00 EDT,Height [...] 12/03/20 16:08:00 EDT, Route to Pharmacy Electronically, [facility], 159, cm, 11/27/20 15:59:00 EDT, Height Start Date: 12/03/20 Stop Date: 03/03/21 Status: Ordered glipiZIDE 10 mg oral tablet 1 tablet = 10 mg, By Mouth, 2 times a day, # 180 tablet, 0 Refills, Maintenance, 12/03/20 14:10:00 EDT, Tablet, [facility], 159, cm, 11/27/20 15:59:00 EDT, [...] 10/10/20 13:15:00 EDT, Route to Pharmacy Electronically, [facility], 159, cm, 10/10/20 12:46:00 EDT, [...] 15:22:00 EST, Route to Pharmacy Electronically, [facility], Partial fill upon patient request if the prescription is for a schedule II opioid d... Start Date: 09/25/20 Status: Ordered ProAir HFA 90 mcg/inh inhalation aerosol with adapter 2, puffs, Inhalation, Every 6 hours, PRN, # 8.5 Gm, Refills 1, Tot. Refills 1, Maintenance, 02/01/19 10:58:44 EDT, Aerosol, Route to Pharmacy Electronically, [id number], [facility] Start Date: 02/01/19 Status: Ordered ReliOn/Novolin N 100 units/mL subcutaneous injection See Instructions, INJECT 18 UNITS SUBCUTANEOUSLY IN THE MORNING AND 9 UNITS IN THE EVENING, # 10 mL, 2 Refills, 12/17/20 7:54:00 EDT, [facility], 159, cm, 11/27/20 15:59:00 EDT, Height Start Date: 12/17/20 Status: Ordered sildenafil 25 mg oral tablet 1 tablet, By Mouth, Daily, PRN NEEDED, PRIOR TO SEXUAL INTERCOURSE., # 2 tablet, 11 Refills, Maintenance, 01/30/21 7:57:00 EDT, [facility], 159, cm, 11/27/20 15:59:00 EDT, Height Start Date: 01/30/21 Status: Ordered terazosin 5 mg oral capsule 1, capsule, By Mouth, Daily at bedtime, # 90 capsule, Refills 0, Tot. 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 8Methacholine challenge test 2014 positive for asthma. 9Dr. Batroseanna 2014 10Patient declines further PSA testing as of October 2015. Social History Social History Type Response Smoking Status Former smoker; Other : Smoking age 55. social smoker; entered on: 09/29/16 Sex Male
--- OUTSIDE RECORDS SUMMARY | 2024-05-22 07:13 | XMS_ITS | Continuity of Care Document ---
Author Organization [facility] Address [address] [place] [address]- Care Team Providers Care Intranet Developer Name Role Phone Antony Pappas MD Primary Care Physician Encounter [facility] Date(s): 03/20/24 - 04/19/24 [facility] [place] [address] [place] [address]- Allergies, Adverse Reactions, Alerts Substance Reaction Severity [...] n pneumococcal 20-valent conjugate vaccine 12/31/22 Given [id number] 12y+ bivalent booster vax 06/10/22 Given SARS-CoV-2 [...] tetanus-diphtheria toxoids (Td) 07/26/98 Given 1Result Comment: [facility] # 2 scheduled for 10/02/20 2Admin Note: given in clinic 3Admin Note: vis given 4Admin Note: BIOMEDICAL RADHA 5Admin Note: [facility] 6Admin Note: given in clinic Medications aspirin 81 mg oral delayed release tablet 81 mg, 1, tablet, By Mouth, Daily in AM, # 30 tablet, Refills 0, Maintenance, 09/07/18 15:22:30 EST Start Date: 09/07/18 Status: Ordered atorvastatin 80 mg oral tablet 1 tablet, By Mouth, Daily, # 90 tablet, 0 Refills, Maintenance, 03/02/24 16:11:00 EDT, [facility], 160, cm, 01/20/24 8:40:00 [...] Weight Start Date: 03/21/24 Status: Ordered ergocalciferol 48680 iu oral capsule See Instructions, Take 1 capsule by mouth once a week, # 5 capsule, Refills 11, Tot. Refills 11, Maintenance, 03/10/24 8:42:00 EDT, Instructions Replace Required Details, Route to Pharmacy Electronically, [facility], 160, cm, 03/10/24 8:33:... Start Date: 03/10/24 Status: Ordered Farxiga 10 mg oral tablet 1 tablet = 10 mg, By Mouth, Daily, Replaces 5mg daily now should be 10mg daily., # 30 tablet, 5 Refills, Maintenance, 01/21/24 11:14:00 EDT, Tablet, [facility], Partial fill upon [...] Replace Required Details, Route to Pharmacy Electronically, [facility], 160, cm, 0... Start Date: 09/01/23 Status: Ordered glipiZIDE 10 mg oral tablet 1 tablet, By Mouth, 2 times a day, # 180 tablet, 1 Refills, Maintenance, 12/15/23 14:06:00 EDT, [facility], 160, cm, 09/28/23 8:15:00 EST, Height, 63, kg, 09/08/23 10:05:00 EST, Dry Weight Start Date: 12/15/23 Status: Ordered hydrALAZINE 25 mg oral tablet 25 mg, 1, tablet, By Mouth, 3 times a day, New per [facility] d/c, # 90 tablet, Refills 0, Maintenance, 04/11/24 8:53:00 EDT, Partial fill upon patient request if the prescription is for a schedule II opioid drug. Start Date: 04/11/24 Status: Ordered Imdur 30 mg oral tablet, extended release 1, tablet, By Mouth, Daily in AM, Replaces amlodipine 2.5mg per [facility] d/c instructions, # 30 tablet, Refills 0, [...] 1, tablet, By Mouth, Daily, Decreased by [facility] d/c from 75mg to 50mg daily, Refills 0, Maintenance, 04/11/24 8:56:00 EDT, Partial fill upon patient request if the prescription is for a schedule II opioid drug. Start Date: 04/11/24 Status: Ordered montelukast 10 mg oral tablet 1, tablet, By Mouth, Daily, # 30 tablet, Refills 5, Maintenance, 12/22/23 14:09:00 EDT, Route to Pharmacy Electronically, [facility], 160, cm, 09/28/23 8:15:00 EST, Height, 63, kg, 09/08/23 10:05:00 EST, Dry Weight Start Date: 12/22/23 Status: Ordered Pen [place], 31 G x 8 mm BD Ultra [...] 9:24:00 EDT, Aerosol, Route to Pharmacy Electronically, [id number], [facility], 160, cm, 01/20/24 8:40:00 EDT, He... Start Date: 02/03/24 Status: Ordered Trelegy Ellipta 200 mcg-62.5 mcg-25 mcg/inh inhalation powder 1 puffs, Inhalation, Daily, 1 month supply, # 1 each, 5 Refills, Maintenance, 11/09/23 10:49:00 EDT, [facility], Partial fill upon [...] 5 each, 11 Refills, Maintenance, 03/28/24 10:56:00 MOLLY, [facility], Partialfill upon patient request [...] u/s 2009 5colo 2012 nl, repeat 2022 26882 normal, repeat 2010 7Status post CABG ??1. 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) Start Jeronimo e:03/12/23 End Date:06/11/23 Status:Met Progression:Not Met Self Manages Postprandial Gl ucose to Less than 180 mg/dl Start Date:03/12/23 End Date:06/11/23 Status:Met Progression:Met Patient Care team information Care Team Personnel Name: Eliza Alejandre RN Position: [facility] RN Member Role: Primary Care Nurse Name: Breanna Moreno Position: [facility] Outreach Member Role: Lifetime Consulting Physician Name: Antony Pappas MD Position: [facility] Physician - Primary Care Member Role: PCP Address: Address: [address] [place] [phone]- [place] Name: Silvia Lawrence RN Position: [facility] RN Member Role: Primary Care Nurse Name: Sahra ([employer]) Sarah Position: [facility] loss prevention auditor Member Role: Radio Program Director Name: Laura Chapin RN Position: [facility] RN Member Role: Primary Care Nurse Name: Lenora Martines NP Position: Reference Physician Member Role: Primary Care Nurse Address: Address: [address] [place] [id number]- Name: Carrol Strauss RN Position: [facility] AMB Nurse Member Role: Primary Care Nurse Name: Claire Carr RN Position: [facility] RN Member Role: Primary Care Nurse Name: Rachel Robledo RN Position: [facility] RN Member Role: Primary Care Nurse Name: Richa Owens RN Position: [facility] RN Member Role: Primary Care Nurse Care Team Related Persons Name: J LUIS HOFF Address: [address] [place] [address] Name: HARVINDER FRANCISCO Address: [address] [place] [address]
--- OUTSIDE RECORDS SUMMARY | 2024-05-22 07:13 | XMS_ITS | Continuity of Care Document ---
Author Organization [facility] Frederick Ponce lt Address [address] [place] [address]- Care Team Providers Care Fund Director Name Role Phone Antony Pappas MD Primary Care Physician Encounter [facility] Date(s): 08/30/23 - 10/16/23 [facility] Adult [address] [place] [address]- Attending Physician: Not on Staff, Attending MD Allergies, Adverse Reactions, Alerts Substance Reaction [...] n pneumococcal 20-valent conjugate vaccine 12/31/22 Given [id number] 12y+ bivalent booster vax 06/10/22 Given SARS-CoV-2 [...] (Td) 07/26/98 Given 1Result Comment: [facility] # 2 scheduled for 10/02/20 2Admin Note: given in clinic 3Admin Note: vis given 4Admin Note: BIOMEDICAL RADHA 5Admin Note: Biomedical Radha [facility] 6Admin Note: given in clinic Medications amLODIPine 2.5 mg oral tablet 1 tablet, By Mouth, Daily, # 90 tablet, 1 Refills, Maintenance, 07/17/23 12:36:00 EST, [facility], 160, cm, 05/17/23 10:46:00 [...] 1 Refills, Maintenance, 08/17/23 16:12:00 EST, [facility], 160, cm, 05/17/23 10:46:00 EDT, Height, 65, kg, 04/28/22 7:07:00 EDT, Dry Weight Start Date: 08/17/23 Status: Ordered ergocalciferol 03138 iu oral capsule 1, capsule, By Mouth, Every week, # 5 capsule, Refills 11, Tot. Refills 11, Maintenance, 03/09/23 11:38:00 EDT, Route to Pharmacy Electronically, [facility], 160, cm, 12/31/22 9:21:00 EDT,Height, 65, kg, 04/28/22 7:07:00 EDT, Dry Weight Start Date: 03/09/23 Status: Ordered Farxiga 5 mg oral tablet 1 tablet, By Mouth, Daily, # 90 tablet, 3 Refills, Maintenance, 06/02/23 9:27:00 EST, [facility], 160, cm, 05/17/23 10:46:00 [...] Required Details, Route to Pharmacy Electronically, [facility], 160, cm, 0... Start Date: 09/01/23 Status: Ordered glipiZIDE 10 mg oral tablet See Instructions, Take 1 tablet by mouth twice daily, # 180 tablet, 0 Refills, Maintenance, 09/20/23 9:48:00 EST, [facility], 160, cm, 09/08/23 11:26:00 EST, Height, 63, kg, 09/08/23 10:05:00 EST, Dry Weight Start Date: 09/20/23 Status: Ordered Metoprolol Succinate ER 50 mg oral tablet, extended release 1 tablet, By Mouth, Daily, # 90 tablet, 0 Refills, Maintenance, 09/27/23 7:45:00 EST, [facility], 160, cm, 09/08/23 11:26:00 EST, Height, 63, kg, 09/08/23 10:05:00 EST, Dry Weight Start Date: 09/27/23 Status: Ordered montelukast 10 mg oral tablet 1, tablet, By Mouth, Daily, # 30 tablet, Refills 5, Tot. Refills 5, Maintenance, 06/28/23 10:39:00 EST, Route to Pharmacy Electronically, [facility], 160, cm, 05/17/23 10:46:00 EDT, Height, 65, kg, 04/28/22 7:07:00 EDT, Dry Weight Start Date: 06/28/23 Status: Ordered Pen [place], 31 G x 8 mm BD Ultra [...] 10:21:00 EDT, Aerosol, Route to Pharmacy Electronically, [id number], [facility], 159, cm, 11/10/21 9:57:00 EDT, H... Start Date: 11/10/21 Status: Ordered torsemide 20 mg oral tablet 2 tablet, By Mouth, Daily, # 180 tablet, 1 Refills, Maintenance, 08/26/23 21:25:00 EST, [facility], 160, cm, 05/17/23 10:46:00 [...] 5 each, 5 Refills, Maintenance, 09/30/23 14:38:00 [facility], Partial fill upon patient [...] u/s 2009 5colo 2012 nl, repeat 2022 28530 normal, repeat 2010 7Status post CABG ??1. 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) Start Jeronimo e:03/12/23 End Date:06/11/23 Status:Met Progression:Not Met Patient Care team information Care Team Personnel Name: Eliza Alejandre RN Position: [facility] RN Member Role: Primary Care Nurse Name: Breanna Moreno Position: [facility] Outreach Member Role: Lifetime Consulting Physician Name: Antony Pappas MD Position: [facility] Physician - Primary Care Member Role: PCP Address: Address: [address] [place] [address]- [place] Name: Silvia Lawrence RN Position: [facility] RN Member Role: Primary Care Nurse Name: Sahra (Baytrisha) Sarah Position: [facility] administrative supervisor Member Role: Independent Contractor Name: Laura Chapin RN Position: [facility] RN Member Role: Primary Care Nurse Name: Lenora Martines NP Position: Reference Physician Member Role: Primary Care Nurse Address: Address: [address] [place] [address]- [place] Name: Carrol Strauss RN Position: [facility] AMB Nurse Member Role: Primary Care Nurse Name: Claire Carr RN Position: [facility] RN Member Role: Primary Care Nurse Name: Rachel Robledo RN Position: S RN Member Role: Primary Care Nurse Name: Richa Owens RN Position: S RN Member Role: Primary Care Nurse Care Team Related Persons Name: J LUIS HOFF Address: home [address] [place] [address] Name: HARVINDER FRANCISCO Address: [address] [place] [address]
--- OUTSIDE RECORDS SUMMARY | 2024-05-22 07:13 | XMS_ITS | Continuity of Care Document ---
Author Organization [facility] Frederick Ponce lt Address [address] [place] [address]- Care Team Providers Care Portable Pinch Riveter Name Role Phone Antony Pappas MD Primary Care Physician [phone] Encounter [facility] [place] Date(s): 08/27/22 - 09/26/22 [facility] [place] Adult [address] [place] [address]- Allergies, Adverse Reactions, Alerts No Known Allergies Immunizations Given and Recorded Vaccine Date Status Refusal Reason [id number] 12y+ bivalent booster vax 06/10/22 Given influenza [...] tetanus-diphtheria toxoids (Td) 07/26/98 Given 1Result Comment: [facility] # 2 scheduled for 10/02/20 [...] 10:29:00 EST, Powder, Route to Pharmacy Electronically, [id number], [facility], 160,... Start Date: 08/27/22 Status: Ordered amLODIPine 2.5 mg oral tablet 1 tablet, By Mouth, Daily, # 90 tablet, 1 Refills, Maintenance, 07/13/22 15:46:00 EST, [facility], 160, cm, 06/10/22 10:45:00 EST, Height, 65, kg, 10/04/22 7:07:00 EDT, Dry Weight Start Date: 07/13/22 Status: Ordered aspirin 81 mg oral delayed release tablet 81 mg, 1, tablet, By Mouth, Daily, # 30 tablet, Refills 0, Maintenance, 09/07/18 15:22:30 EST Start Date: 09/07/18 Status: Ordered atorvastatin 80 mg oral tablet 1 tablet, By Mouth, Daily, # 90 tablet, 1 Refills, Maintenance, 09/08/22 14:54:00 EST, [facility], 160, cm, 07/30/22 9:45:00 EST, Height, 65, kg, 04/28/22 7:07:00 EDT, Dry Weight Start Date: 09/08/22 Status: Ordered ergocalciferol 66165 iu oral capsule 1, capsule, By Mouth, Every week, # 5 capsule, Refills 11, Route to Pharmacy Electronically, [facility], 159, cm, 12/29/21 10:39:00 EDT, Height Start Date: 01/07/22 Status: Ordered Farxiga 5 mg oral tablet 1 tablet = 5 mg, By Mouth, Daily, If Pt cannot afford we will try to get medication assist through the company., # 30 tablet, 3 Refills, Maintenance, 09/11/22 13:16:00 EST, Tablet, [facility], Partial fill upon patient request [...] 05/27/22 18:05:00 EDT, Route to Pharmacy Electronically, [facility], 160, cm, 05/01/22 8:19:00 EDT, Height, 65, kg, 04/28/22 7:07:00 EDT, Dry Weight Start Date: 05/27/22 Status: Ordered glipiZIDE 10 mg oral tablet 1 tablet, By Mouth, 2 times a day, # 180 tablet, 3 Refills, Maintenance, 09/22/22 12:28:00 EST, [facility], 160, cm, 09/09/22 14:01:00 EST, [...] EST, Route to Pharmacy Electronically, [facility], Partial fill upon patient request if the prescription is for a schedule II opioid d... Start Date: 09/25/20 Status: Ordered montelukast 10 mg oral tablet See Instructions, Take 1 tablet by mouth once daily, # 30 tablet, Refills 5, Tot. Refills 5, Maintenance, 06/23/22 11:11:00 EST, Instructions Replace Required Details, Route to Pharmacy Electronically, [facility], 160, cm, 06/10/22 10:45:00... Start Date: 06/23/22 Status: Ordered ProAir HFA 90 mcg/inh inhalation aerosol with adapter 2, puffs, Inhalation, Every 6 hours, PRN, # 8.5 Gm, Refills 6, Tot. Refills 6, Maintenance, 11/10/21 10:21:00 EDT, Aerosol, Route to Pharmacy Electronically, [id number], [facility], 159, cm, 11/10/21 9:57:00 EDT, H... Start Date: 11/10/21 Status: Ordered terazosin 5 mg oral capsule 1, capsule, By Mouth, Daily at bedtime, # 90 capsule, Refills 0, Maintenance, 08/05/22 12:14:00 EST, Route to Pharmacy Electronically, [facility], 160, cm, 07/30/22 9:45:00 EST, Height, 65, kg, 04/28/22 7:07:00 EDT, Dry Weight Start Date: 08/05/22 Status: Ordered torsemide 20 mg oral tablet 2 tablet = 40 mg, By Mouth, Daily, # 180 tablet, 3 Refills, Maintenance, 09/09/22 14:25:00 EST, [facility], Partial fill upon patient request [...] u/s 2009 5colo 2012 nl, repeat 2022 13631 normal, repeat 2010 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 8Methacholine challenge test 2014 positive for asthma. 9Dr. Batlan 2014 10Patient declines further PSA testing as of October 2015. Social History Social History Type Response Tobacco Other: quit age 52, smoked since age 22, 1/2 ppd. Sex Patient Care team information Care Team Personnel Name: Eliza Alejandre RN Position: [facility] RN Member Role: Primary Care Nurse Name: Breanna Moreno Position: [facility] Outreach Member Role: Lifetime Consulting Physician Name: Antony Pappas MD Position: [facility] Primary Care Physician Member Role: PCP Address: Address: [address] [place] [address]- Name: Silvia Lawrence RN Position: [facility] RN Member Role: Primary Care Nurse Name: Laura Chapin RN Position: [facility] RN Member Role: Primary Care Nurse Name: Lenora Martines NP Position: Reference Physician Member Role: Primary Care Nurse Address: Address: [address] [place] [address]- Name: Carrol Strauss RN Position: [facility] AMB Nurse Member Role: Primary Care Nurse Name: Claire Carr RN Position: [facility] RN Member Role: Primary Care Nurse Name: Rachel Robledo RN Position: [facility] RN Member Role: Primary Care Nurse Name: Richa Owens RN Position: [facility] RN Member Role: Primary Care Nurse Care Team Related Persons Name: J LUIS HOFF Address: [address] [place] [address] Name: HARVINDER FRANCISCO Address: [address] [place] [address]
--- OUTSIDE RECORDS SUMMARY | 2024-05-22 07:13 | XMS_ITS | Continuity of Care Document ---
Author Organization [facility] Frederick Ponce lt Address [address] [place] [address]- Care Team Providers Care Seconds Handler Name Role Phone Antony Pappas MD Primary Care Physician [place] [facility] [place](s): 09/09/22 - 09/16/22 [facility] [address] [place] [address]- Attending Physician: Antony Pappas MD Allergies, Adverse Reactions, Alerts No Known Allergies Immunizations Given and Recorded Vaccine Date Status Refusal Reason [id number] 12y+ bivalent booster vax 06/10/22 Given influenza [...] (Td) 07/26/98 Given 1Result Comment: [facility] # 2 scheduled for 10/02/20 2Admin Note: given in clinic 3Admin Note: vis given 4Admin Note: BIOMEDICAL RADHA 5Admin Note: Biomedical Radha [facility] 6Admin Note: given in clinic Medications Advair Diskus 250 mcg-50 mcg inhalation powder 1, puffs, Inhalation, 2 times a day, Give 3 month supply, # 3 each, Refills 3, Tot. Refills 3, Maintenance, 08/27/22 10:29:00 EST, Powder, Route to Pharmacy Electronically, [id number], [facility], 160,... Start Date: 08/27/22 Status: Ordered amLODIPine 2.5 mg oral tablet 1 tablet, By Mouth, Daily, # 90 tablet, 1 Refills, Maintenance, 07/13/22 15:46:00 EST, [facility], 160, cm, 06/10/22 10:45:00 EST, [...] tablet, 1 Refills, Maintenance, 09/08/22 14:54:00 EST, [facility], 160, cm, 07/30/22 9:45:00 EST, Height, 65, kg, 04/28/22 7:07:00 EDT, Dry Weight Start Date: 09/08/22 Status: Ordered ergocalciferol 43110 iu oral capsule 1, capsule, By Mouth, Every week, # 5 capsule, Refills 11, Route to Pharmacy Electronically, [facility], 159, cm, 12/29/21 10:39:00 EDT, Height Start Date: 01/07/22 Status: Ordered Farxiga 5 mg oral tablet 1 tablet = 5 mg, By Mouth, Daily, # 90 tablet, 0 Refills, Maintenance, 09/09/22 14:34:00 EST, Tablet, Partial fill upon patient request if the prescription is for a schedule II opioid drug. Start Date: 09/09/22 Status: Ordered Farxiga 5 mg oral tablet 1 tablet = 5 mg, By Mouth, Daily, If Pt cannot afford we will try to get medication assist through the company., # 30 tablet, 3 Refills, Maintenance, 09/11/22 13:16:00 EST, Tablet, [facility], Partial fill upon patient [...] 05/27/22 18:05:00 EDT, Route to Pharmacy Electronically, [place] [facility], 160, cm, 05/01/22 8:19:00 EDT, Height, 65, kg, 04/28/22 7:07:00 EDT, Dry Weight Start Date: 05/27/22 Status: Ordered glipiZIDE 10 mg oral tablet 1 tablet, By Mouth, 2 times a day, # 180 tablet, 1 Refills, [place] [facility], 159, cm, 11/21/21 11:16:00 EDT, Height Start [...] 09/25/20 15:22:00 EST, Route to Pharmacy Electronically, [place] [address], Partial fill upon patient request if the prescription is for a schedule II opioid d... Start Date: 09/25/20 Status: Ordered montelukast 10 mg oral tablet See Instructions, Take 1 tablet by mouth once daily, # 30 tablet, Refills 5, Tot. Refills 5, Maintenance, 06/23/22 11:11:00 EST, Instructions Replace Required Details, Route to Pharmacy Electronically, [place] [facility], 160, cm, 06/10/22 10:45:00... Start Date: 06/23/22 Status: Ordered ProAir HFA 90 mcg/inh inhalation aerosol with adapter 2, puffs, Inhalation, Every 6 hours, PRN, # 8.5 Gm, Refills 6, Tot. Refills 6, Maintenance, 11/10/21 10:21:00 EDT, Aerosol, Route to Pharmacy Electronically, [id number], [facility], 159, cm, 11/10/21 9:57:00 EDT, H... Start Date: 11/10/21 Status: Ordered terazosin 5 mg oral capsule 1, capsule, By Mouth, Daily at bedtime, # 90 capsule, Refills 0, Maintenance, 08/05/22 12:14:00 EST, Route to Pharmacy Electronically, [facility], 160, cm, 07/30/22 9:45:00 EST, Height, 65, kg, 04/28/22 7:07:00 EDT, Dry Weight Start Date: 08/05/22 Status: Ordered torsemide 20 mg oral tablet 2 tablet = 40 mg, By Mouth, Daily, # 180 tablet, 3 Refills, Maintenance, 09/09/22 14:25:00 EST, [facility], Partial fill upon patient [...] u/s 2009 5colo 2012 nl, repeat 2022 93560 normal, repeat 2010 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 8Methacholine challenge test 2014 positive for asthma. 9Dr. Misa 2014 10Patient declines further PSA testing as of October 2015. Vital Signs Most recent to oldest [Reference Range]: 1 Height 160 cm (09/09/22 2:01 PM) Weight 73.2 kg (09/09/22 2:01 PM) Oxygen Saturation [94-100 %] 93 % *L* (09/09/22 2:01 PM) Pulse Rate [55-90 bpm] 78 bpm (09/09/22 2:01 PM) Body Mass Index [18.5-24.99 kg/m2] 28.59 kg/m2 *H* (09/09/22 2:01 PM) Blood Pressure [90-138/55-84 mm Hg] 110/ 64mm Hg (09/09/22 2:01 PM) Mode of Delivery (Oxygen) Room air (09/09/22 2:01 PM) Blood pressure sites Arm, left (09/09/22 2:01 PM) Weight Obtained Via Standing scale (09/09/22 2:01 PM) Social History Social History Type Response Tobacco Other: quit age 52, smoked since age 22, 1/2 ppd. Sex Note * Suma Zhang: PERFORM, SIGN, VERIFY Event Display: Patient Education/Instruction Authored Date: [id number] [facility] *BMP So [facility]ina Clinical Summary Name SÁNCHEZ HOFF Age 82 Years 1940 PCP Elyse LEE, Antony Ospina PCP Visit Date 09/09/2022 13:40:00 Additional Instructions: Scheduled Appointments?? Future Appointments ?*[facility]??Cardiology1 ?[address]??[place],??[place],??[address] ?Phone:??--?Fax:??-- ?Appt. Date:??11/13/2022?1:25 PM ?Scheduled Provider:??Sandi LEE , Pepe Ivy Follow-Up Instructions ?? With: Address: When: Elyse LEE, Antony Anai In 2 weeks Diagnosis Medications: Please continue your medications until treatment is completed or stopped by your provider. Discuss any questions related to medications with your provider. Medications to Continue Taking That Have Changed [facility], [address] [place] [id number], [phone] - torsemide (torsemide 20 mg oral tablet) 2 tab(s) Oral Daily for 90 Days. Refills: 3. Next Dose: Medications to Continue [...] mg oral tablet) 1 tab(s) Oral Daily. Next Dose: Durable Medical Equipment (Freestyle Lite Test Strips) Use to test blood sugar twice daily for DM2 E11.9 3 month supply. Refills: 3. Next Dose: Durable Medical Equipment (Insulin Syringe, BD Ultra-Fine 0.5 cc 31 G x 8 mm (516in)) Use twice a day with NPH insulin DM2 E11.9. Refills: 11. Next Dose: Ergocalciferol (ergocalciferol 68546 iu oral capsule) 1 capsule Oral every week. Refills: 11. Next Dose: Fluticasone-Salmeterol (Advair Diskus 250 mcg-50 mcg inhalation powder) 1 puff(s) Inhalation twice a day. Give 3 month supply. Refills: 3. Next Dose: Gabapentin (gabapentin 300 mg oral capsule) 1 capsule Oral Daily at Bedtime. Refills: 3. Next Dose: GlipiZIDE (glipiZIDE 10 mg oral tablet) 1 tab(s) Oral twice a day. Refills: 1. Next Dose: Insulin NPH (ReliOn/Novolin N 100 units/mL subcutaneous injection) INJECT 18 UNITS SUBCUTANEOUSLY IN THE MORNING AND 9 IN THE EVENING. Refills: 0. Next Dose: Insulin NPH (ReliOn/Novolin N 100 units/mL subcutaneous injection) INJECT 18 UNITS SUBCUTANEOUSLY IN THE MORNING AND 9 IN THE EVENING. Refills: 10. Next Dose: Metoprolol (metoprolol 50 mg oral tablet, extended release) 1 tab(s) Oral Daily. Refills: 3. Next Dose: Montelukast (montelukast 10 mg oral tablet) Take 1 tablet by mouth once daily. Refills: 5. Next Dose: Terazosin (terazosin 5 mg oral capsule) 1 capsule Oral Daily at Bedtime. Refills: 0. Next Dose: Allergy Info:?? NKA Medications Given This Visit Future Orders ?Renal Panel? Order Date:09/23/22?- Complete by?09/25/22 Vital Signs Height 160 cm Weight 73.2 kg BMI 28.59 kg/m2 Blood Pressure 110 mm Hg/64 mm Hg Temperature Pulse Rate 78 bpm Respiratory Rate 02 Sat Mode of Delivery 93 %/Room air You can now view a summary of your hospital visit from the comfort of your home through a free online portal called [employer]. [employer] is a website that allows you to securely view your medical information including discharge summary, medications and follow-up visits. ??You can alsosend a secure electronic message to your doctor???s office to request appointments, renew medications or just ask a question. You can enroll at [email or web address] or register during your next office [...] primary care provider, you may find a [facility] provider by calling [facility] [employer] Link at [phone]. For information about the plan of care [...] Consulting Physician Name: Antony Pappas MD Position: [facility] Primary Care Physician Member Role: PCP Address: Address: [address] [place] [address]- [place] Name: Silvia Lawrence RN Position: S RN Member Role: Primary Care Nurse Name: Laura Chapin RN Position: S RN Member Role: Primary Care Nurse Name: Lenora Martines NP Position: Reference Physician Member Role: Primary Care Nurse Address: Address: [address] [place] [address]- [place] Name: Carrol Strauss RN Position: [facility] AMB Nurse Member Role: Primary Care Nurse Name: Claire Carr RN Position: [facility] RN Member Role: Primary Care Nurse Name: Rachel Robledo RN Position: [facility] RN Member Role: Primary Care Nurse Name: Richa Owens RN Position: S RN Member Role: Primary Care Nurse Care Team Related Persons Name: LUIS EDUARDO J LUIS Address: [address] [place] [address] Name: HARVINDER FRANCISCO Address: home [address] [place] [address]
--- OUTSIDE RECORDS SUMMARY | 2024-05-22 07:13 | XMS_ITS | Continuity of Care Document ---
Author Organization [facility] ter Address [address] [place] [address]- Care Team Providers Care Department Supervisor Name Role Phone Antony Pappas MD Primary Care Physician [phone] Encounter [facility] Date(s): 03/27/22 - 05/02/[address] [address] Attending Physician: Wan Greenberg MD Admitting Physician: [...] tetanus-diphtheria toxoids (Td) 07/26/98 Given 1Result Comment: [facility] # 2 scheduled for 10/02/20 2Admin Note: given in clinic 3Admin Note: vis given 4Admin Note: BIOMEDICAL RADHA 5Admin Note: Biomedical Rad[facility] 6Admin Note: given in clinic Medications Advair Diskus 250 mcg-50 mcg inhalation powder 1, puffs, Inhalation, 2 times a day, Give 3 month supply, # 3 each, Refills 3, Tot. Refills 3, Maintenance, 09/26/21 10:53:00 EST, Powder, Route to Pharmacy Electronically, [id number], [facility], 159,... Start Date: 09/26/21 Status: Ordered amLODIPine 2.5 mg oral tablet 1 tablet, By Mouth, Daily, # 90 tablet, 1 Refills, [facility], 159, cm, 11/26/21 11:06:00 EDT, Height Start Date: 12/09/21 Status: Ordered aspirin 81 mg oral delayed release tablet 81 mg, 1, tablet, By Mouth, Daily, # 30 tablet, Refills 0, Maintenance, 09/07/18 15:22:30 EST Start Date: 09/07/18 Status: Ordered atorvastatin 80 mg oral tablet 1 tablet, By Mouth, Daily, # 90 tablet, 1 Refills, Maintenance, 02/14/22 11:19:00 EDT, [facility], 160, cm, 02/02/22 8:07:00 EDT, Height Start Date: 02/14/22 Status: Ordered Entresto 24 mg-26 mg oral tablet 1 tablet, By Mouth, 2 times a day, On hold 04/14/[address] Papp[address] and Dr[address] Junior, # 60 tablet, 3 Refills,Maintenance, 03/20/22 12:20:00 EDT, Tablet, [facility], Partial fill upon patient request if the prescription is for a schedule II opioid... Start Date: 03/20/22 Stop Date: 07/18/22 Status: Ordered ergocalciferol 45005 iu oral capsule 1, capsule, By Mouth, Every week, # 5 capsule, Refills 11, Route to Pharmacy Electronically, [facility], 159, cm, 12/29/21 10:39:00 [...] capsule, Refills 3, Route to Pharmacy Electronically, [facility], 159, cm, 02/20/21 6:56:00 EDT, Height Start Date: 05/20/21 Status: Ordered glipiZIDE 10 mg oral tablet 1 tablet, By Mouth, 2 times a day, # 180 tablet, 1 Refills, [facility], 159, cm, 11/21/21 11:16:00 [...] 09/25/20 15:22:00 EST, Route to Pharmacy Electronically, [facility], Partial fill upon patient request if the prescription is for a schedule II opioid d... Start Date: 09/25/20 Status: Ordered ProAir HFA 90 mcg/inh inhalation aerosol with adapter 2, puffs, Inhalation, Every 6 hours, PRN, # 8.5 Gm, Refills 6, Tot. Refills 6, Maintenance, 11/10/21 10:21:00 EDT, Aerosol, Route to Pharmacy Electronically, [id number], [facility], 159, cm, 11/10/21 9:57:00 EDT, H... Start Date: 11/10/21 Status: Ordered ReliOn/Novolin N 100 units/mL subcutaneous injection See Instructions, INJECT 18 UNITS SUBCUTANEOUSLY IN THE MORNING AND 9 IN THE EVENING, # 10 mL, 5 Refills, [facility], 159, cm, 09/04/21 13:27:00 EST, Height Start Date: 10/06/21 Status: Ordered Singulair 10 mg oral tablet 10 mg, 1, tablet, By Mouth, Daily, # 30 tablet, Refills 6, Tot. Refills 6, Maintenance, 11/10/21 10:21:00 EDT, Route to Pharmacy Electronically, [facility], Partial fill upon patient request if the prescription is for a schedule II opioid d... Start Date: 11/10/21 Status: Ordered terazosin 5 mg oral capsule 1, capsule, By Mouth, Daily at bedtime, # 90 capsule, Refills 1, Route to Pharmacy Electronically, [facility], 160, cm, 01/30/22 5:01:00 EDT, Height Start Date: 02/01/22 Status: Ordered torsemide 40 mg oral tablet 1 tablet = 40 mg, By Mouth, Daily, 40mg po every other day per Dr. Pappas and Dr. Junior, # 30 tablet, 1 Refills, Maintenance, 03/20/22 12:20:00 EDT, [facility], Partial fill [...] u/s 2009 5colo 2012 nl, repeat 2022 11692 normal, repeat 2010 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 8Methacholine challenge test 2014 positive for asthma. 9Dr. Batlan 2014 10Patient declines further PSA testing as of October 2015. Social History Social History Type Response Tobacco Other: quit age 52, smoked since age 22, 1/2 ppd. Sex Patient Care team information Personnel Name: Elyse LEE, Antony Ospina Address: Address: [address] [place] [id number]
--- OUTSIDE RECORDS SUMMARY | 2024-05-22 07:13 | XMS_ITS | Continuity of Care Document ---
Author Organization [facility] Address [address] [place] [address]- Care Team Providers Care Manager Trust Name Role Phone Antony Pappas MD Primary Care Physician [phone] Encounter [facility] [place] Date(s): 09/18/22 - 10/18/22 [facility] [address] [place] [address]- Allergies, Adverse Reactions, Alerts No Known Allergies Immunizations Given and Recorded Vaccine Date Status Refusal Reason [id number] 12y+ bivalent booster vax 06/10/22 Given influenza [...] tetanus-diphtheria toxoids (Td) 07/26/98 Given 1Result Comment: [facility] # 2 scheduled for 10/02/20 [...] 10:29:00 EST, Powder, Route to Pharmacy Electronically, [id number], [facility], 160,... Start Date: 08/27/22 Status: Ordered amLODIPine 2.5 mg oral tablet 1 tablet, By Mouth, Daily, # 90 tablet, 1 Refills, Maintenance, 07/13/22 15:46:00 EST, [facility], 160, [...] tablet, 1 Refills, Maintenance, 09/08/22 14:54:00 EST, [facility], 160, cm, 07/30/22 9:45:00 EST, Height, 65, kg, 04/28/22 7:07:00 EDT, Dry Weight Start Date: 09/08/22 Status: Ordered ergocalciferol 68288 iu oral capsule 1, capsule, By Mouth, [...] 3 Refills, Maintenance, 09/11/22 13:16:00 EST, Tablet, [facility], Partial fill [...] tablet, 3 Refills, Maintenance, 09/22/22 12:28:00 EST, [facility], 160, cm, 09/09/22 14:01:00 [...] tablet, 3 Refills, Maintenance, 10/10/22 20:33:00 EDT, [facility], 160, cm, 09/24/22 9:03:00 EST, Height, 65, kg, 04/28/22 7:07:00 EDT, Dry Weight Start Date: 10/10/22 Status: Ordered montelukast 10 mg oral tablet See Instructions, Take 1 tablet by mouth once daily, # 30 tablet, Refills 5, Tot. Refills 5, Maintenance, 06/23/22 11:11:00 EST, Instructions Replace Required Details, Route to Pharmacy Electronically, [facility], 160, cm, 06/10/22 10:45:00... Start Date: 06/23/22 Status: Ordered ProAir HFA 90 mcg/inh inhalation aerosol with adapter 2, puffs, Inhalation, Every 6 hours, PRN, # 8.5 Gm, Refills 6, Tot. Refills 6, Maintenance, 11/10/21 10:21:00 EDT, Aerosol, Route to Pharmacy Electronically, [id number], [facility], 159, cm, [...] 08/05/22 12:14:00 EST, Route to Pharmacy Electronically, [facility], 160, cm, 07/30/22 9:45:00 EST, Height, 65, kg, 04/28/22 7:07:00 EDT, Dry Weight Start Date: 08/05/22 Status: Ordered torsemide 20 mg oral tablet 2 tablet = 40 mg, By Mouth, Daily, # 180 tablet, 3 Refills, Maintenance, 09/09/22 14:25:00 EST, [facility], Partial fill [...] u/s 2009 5colo 2012 nl, repeat 2022 60552 normal, repeat 2010 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 8Methacholine challenge test 2014 positive for asthma. 9Dr. Batlan 2014 10Patient declines further PSA testing as of October 2015. Social History Social History Type Response Tobacco Other: quit age 52, smoked since age 22, 1/2 ppd. Sex Patient Care team information Care Team Personnel Name: Eliza Alejandre RN Position: [facility] RN Member Role: Primary Care Nurse Name: Breanna Moreno Position: [facility] Outreach Member Role: Lifetime Consulting Physician Name: Antony Pappas MD Position: [facility] Primary Care Physician Member Role: PCP Address: Address: [address] [place] [address]- [place] Name: Silvia Lawrence RN Position: [facility] RN Member Role: Primary Care Nurse Name: Laura Chapin RN Position: [facility] RN Member Role: Primary Care Nurse Name: Lenora Martines NP Position: Reference Physician Member Role: Primary Care Nurse Address: Address: [address] [place] [id number]- [place] Name: Carrol Strauss RN Position: [facility] AMB Nurse Member Role: Primary Care Nurse Name: Claire Carr RN Position: [facility] RN Member Role: Primary Care Nurse Name: Rachel Robledo RN Position: [facility] RN Member Role: Primary Care Nurse Name: Richa Owens RN Position: [facility] RN Member Role: Primary Care Nurse Care Team Related Persons Name: WILTON HOFFSA Address: home [address] [place] [address] Name: HARVINDER FRACNISCO Address: home [address] [place] [address]
--- OUTSIDE RECORDS SUMMARY | 2024-05-22 07:13 | XMS_ITS | Continuity of Care Document ---
Author Organization [facility] Address [address] [place] [address]- Care Team Providers Care Cyber Legal Advisor Name Role Phone Antony Pappas MD Primary Care Physician Encounter [facility] Date(s): 06/10/22 - 07/10/22 [facility] [address] [place] [address]- Attending Physician: Admtr, Ar8 Allergies, Adverse Reactions, Alerts No Known Allergies Immunizations Given and Recorded Vaccine Date Status Refusal Reason [id number] 12y+ bivalent booster vax 06/10/22 Given influenza [...] tetanus-diphtheria toxoids (Td) 07/26/98 Given 1Result Comment: [facility] # 2 scheduled for 10/02/20 2Admin Note: given in clinic 3Admin Note: vis given 4Admin Note: BIOMEDICAL RADHA 5Admin Note: Biomedical Radha [facility] 6Admin Note: given in clinic Medications Advair Diskus 250 mcg-50 mcg inhalation powder 1, puffs, Inhalation, 2 times a day, Give 3 month supply, # 3 each, Refills 3, Tot. Refills 3, Maintenance, 09/26/21 10:53:00 EST, Powder, Route to Pharmacy Electronically, [id number], [facility],... Start Date: 09/26/21 Status: Ordered amLODIPine 2.5 mg oral tablet 1 tablet, By Mouth, Daily, # 90 tablet, 1 Refills, [facility], 159, cm, 11/26/21 11:06:00 EDT, Height Start Date: 12/09/21 Status: Ordered aspirin 81 mg oral delayed release tablet 81 mg, 1, tablet, By Mouth, Daily, # 30 tablet, Refills 0, Maintenance, 09/07/18 15:22:30 EST Start Date: 09/07/18 Status: Ordered atorvastatin 80 mg oral tablet 1 tablet, By Mouth, Daily, # 90 tablet, 1 Refills, Maintenance, 02/14/22 11:19:00 EDT, [facility], 160, cm, 02/02/22 8:07:00 EDT, Height Start Date: 02/14/22 Status: Ordered ergocalciferol 35338 iu oral capsule 1, capsule, By Mouth, Every week, # 5 capsule, Refills 11, Route to Pharmacy Electronically, [facility], 159, cm, 12/29/21 10:39:00 [...] 05/27/22 18:05:00 EDT, Route to Pharmacy Electronically, [facility], 160, cm, 05/01/22 8:19:00 EDT, Height, 65, kg, 04/28/22 7:07:00 EDT, Dry Weight Start Date: 05/27/22 Status: Ordered glipiZIDE 10 mg oral tablet 1 tablet, By Mouth, 2 times a day, # 180 tablet, 1 Refills, [facility], 159, cm, 11/21/21 11:16:00 [...] 15:22:00 EST, Route to Pharmacy Electronically, [facility], Partial fill upon patient request if the prescription is for a schedule II opioid d... Start Date: 09/25/20 Status: Ordered montelukast 10 mg oral tablet See Instructions, Take 1 tablet by mouth once daily, # 30 tablet, Refills 5, Tot. Refills 5, Maintenance, 06/23/22 11:11:00 EST, Instructions Replace Required Details, Route to Pharmacy Electronically, [place] [id number], 160, cm, 06/10/22 10:45:00... Start Date: 06/23/22 Status: Ordered ProAir HFA 90 mcg/inh inhalation aerosol with adapter 2, puffs, Inhalation, Every 6 hours, PRN, # 8.5 Gm, Refills 6, Tot. Refills 6, Maintenance, 11/10/21 10:21:00 EDT, Aerosol, Route to Pharmacy Electronically, [id number], [facility], 159, cm, 11/10/21 9:57:00 EDT, H... Start Date: 11/10/21 Status: Ordered ReliOn/Novolin N 100 units/mL subcutaneous injection See Instructions, INJECT 18 UNITS SUBCUTANEOUSLY IN THE MORNING AND 9 IN THE EVENING, # 10 mL, 0 Refills, Maintenance, 05/07/22 8:49:00 EDT, [facility], 160, cm, 05/01/22 8:19:00 EDT, Height, 65, kg, 04/28/22 7:07:00 EDT, Dry Weight Start Date: 05/07/22 Status: Ordered ReliOn/Novolin N 100 units/mL subcutaneous injection See Instructions, INJECT 18 UNITS SUBCUTANEOUSLY IN THE MORNING AND 9 IN THE EVENING, # 10 mL, 10 Refills, Maintenance, 06/10/22 11:03:00 EST, [facility], 160, cm, 06/10/22 10:45:00 EST, Height, 65, kg, 04/28/22 7:07:00 EDT, Dry Weight Start Date: 06/10/22 Status: Ordered terazosin 5 mg oral capsule 1, capsule, By Mouth, Daily at bedtime, # 90 capsule, Refills 1, Route to Pharmacy Electronically, [facility], 160, cm, 01/30/22 5:01:00 EDT, Height Start Date: 02/01/22 Status: Ordered torsemide 20 mg oral tablet 2 tablet = 40 mg, By Mouth, Every other day, # 30 tablet, 5 Refills, Maintenance, 06/23/22 13:12:00EST, [facility], Partial fill upon patient request if the prescription is for a scheduleII opioid drug., 160, cm, 06/10/22 10:45:00 EST, He... 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 8Methacholine challenge test 2015 positive for asthma. 9Dr. Batlan 2015 10Patient declines further PSA testing as of October 2015. Social History Social History Type Response Tobacco Other: quit age 52, smoked since age 22, 1/2 ppd. Sex EKG study * Event Display: EKG Authored Date: Note * Event Display: Radiology Result Scanned Authored Date: * Event Display: Non [facility] Radiology Results Authored Date: * Event Display: Radiology Result Scanned Authored Date: * Adelina Recinos: PERFORM Event Display: Laboratory Results Scanned Authored Date: [id number] Patient Care team information Care Team Personnel Name: Eliza Alejandre RN Position: [facility] RN Member Role: Primary Care Nurse Name: Breanna Moreno Position: [facility] Outreach Member Role: Lifetime Consulting Physician Name: Antony Pappas MD Position: [facility] Primary Care Physician Member Role: PCP Address: Address: [address] [place] [address]- [place] Name: Silvia Lawrence RN Position: [facility] RN Member Role: Primary Care Nurse Name: Laura Chapin RN Position: [facility] RN Member Role: Primary Care Nurse Name: Lenora Martines NP Position: Reference Physician Member Role: Primary Care Nurse Address: Address: [address] [place] [address]- [place] Name: Carrol Strauss RN Position: [facility] SHAYAN Nurse Member Role: Primary Care Nurse Name: Claire Carr RN Position: [facility] RN Member Role: Primary Care Nurse Name: Rachel Robledo RN Position: [facility] RN Member Role: Primary Care Nurse Name: Richa Owens RN Position: [facility] RN Member Role: Primary Care Nurse Care Team Related Persons Name: LUIS EDUARDO J LUIS Address: home [address] [place] [address] Name: HARVINDER FRANCISCO Address: home [address] [place] [address]
--- OUTSIDE RECORDS SUMMARY | 2024-05-22 07:13 | XMS_ITS | Continuity of Care Document ---
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 Name Role Phone Antony Pappas MD Primary Care Physician [phone] Encounter [facility] Date(s): 05/23/21 - 05/30/21 [facility] [address] [place] [address]- Encounter Diagnosis Anemia of chronic disease(Discharge Diagnosis) - 05/23/21 Asthma, mild persistent(Discharge Diagnosis) - 05/23/21 CHF (congestive heart failure)(Discharge Diagnosis) - 05/23/21 Chronic renal disease, stage III(Discharge Diagnosis) - 05/23/21 Diabetic neuropathy(Discharge Diagnosis) - 05/23/21 HTN (hypertension)(Discharge Diagnosis) - 05/23/21 Hypercholesterolemia(Discharge Diagnosis) - 05/23/21 Psoriatic arthritis(Discharge Diagnosis) - 05/23/21 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 Refills 11, Maintenance, 06/07/2011:56:00 EST, Route to Pharmacy Electronically, [facility], Partial fill upon patient [...] tablet, 1 Refills, Maintenance, 02/11/21 15:14:00 EDT, [facility], 159, cm, 11/27/20 15:59:00 EDT, Height Start Date: 02/11/21 Status: Ordered Breo Ellipta 100 mcg-25 mcg/inh inhalation powder 1 puffs, Inhalation, Daily, IN PLACE OF QVAR., # 180 each, 1 Refills, [facility], 90, INHALE 1 PUFF BY MOUTH ONCE DAILY (IN PLACE OF QVAR), 159, cm, 02/20/21 6:56:00 EDT, Height Start Date: 05/15/21 Status: Ordered ergocalciferol 05325 iu oral capsule 1, capsule, By Mouth, Every week, # 5 capsule, Refills 12, Tot. Refills 0, Maintenance, 01/01/21 14:53:00 EDT, Route to Pharmacy Electronically, [facility], 159, cm, 11/27/20 15:59:00 [...] capsule, Refills 3, Route to Pharmacy Electronically, [facility], 159, cm, 02/20/21 6:56:00 EDT, Height Start Date: 05/20/21 Status: Ordered glipiZIDE 10 mg oral tablet 1 tablet = 10 mg, By Mouth, 2 times a day, # 180 tablet, 0 Refills, Maintenance, 03/27/21 7:24:00 EDT, Tablet, [facility], 159, cm, 02/20/21 6:56:00 EDT, Height Start Date: 03/27/21 Status: Ordered Insulin Syringe, BD Ultra-Fine 0.5 [...] 10/10/20 13:15:00 EDT, Route to Pharmacy Electronically, [facility], 159, cm, 10/10/20 12:46:00 [...] 09/25/20 15:22:00 EST, Route to Pharmacy Electronically, [facility], Partial fill upon patient request if the prescription is for a schedule II opioid d... Start Date: 09/25/20 Status: Ordered ProAir HFA 90 mcg/inh inhalation aerosol with adapter 2, puffs, Inhalation, Every 6 hours, PRN, # 8.5 Gm, Refills 1, Tot. Refills 1, Maintenance, 02/01/19 10:58:44 EDT, Aerosol, Route to Pharmacy Electronically, [id number], [facility] Start Date: 02/01/19 Status: Ordered ReliOn/Novolin N 100 units/mL subcutaneous injection See Instructions, INJECT 18 UNITS SUBCUTANEOUSLY IN THE MORNING AND 11 IN THE EVENING, # 10 mL, 5 Refills, [facility], 159, cm, 02/20/21 6:56:00 EDT, Height Start Date: 04/05/21 Status: Ordered sildenafil 25 mg oral tablet 1 tablet, By Mouth, Daily, PRN NEEDED, PRIOR TO SEXUAL INTERCOURSE., # 2 tablet, 11 Refills, Maintenance, 01/30/21 7:57:00 EDT, [facility], 159, cm, 11/27/20 15:59:00 EDT, Height Start Date: 01/30/21 Status: Ordered terazosin 5 mg oral capsule 1, capsule, By Mouth, Daily at bedtime, # 90 capsule, Refills 1, Route to Pharmacy Electronically, [facility], 159, cm, 02/20/21 6:56:00 [...] u/s 2009 5colo 2012 nl, repeat 2022 37325 normal, repeat 2010 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 8Methacholine challenge test 2014 positive for asthma. 9DrAngy Bynum 2014 10Patient declines further PSA testing as of October 2015. Diagnosis Diagnosis Type Effective Dates Health Status Clinical Service Informant Anemia of chronic disease Discharge Diagnosis 05/23/21 Asthma, mild persistent Discharge Diagnosis 05/23/21 CHF (congestive heart failure) Discharge Diagnosis 05/23/21 Chronic renal disease, stage III Discharge Diagnosis 05/23/21 Diabetic neuropathy Discharge Diagnosis 05/23/21 HTN (hypertension) Discharge Diagnosis 05/23/21 Hypercholesterolemia Discharge Diagnosis 05/23/21 Psoriatic arthritis Discharge Diagnosis 05/23/21 Type II diabetes mellitus with renal manifestations Discharge Diagnosis 05/23/21 Vital Signs Most recent to oldest [Reference Range]: 1 Height 159 cm (05/23/21 10:23 AM) Weight 71.3 kg (05/23/21 10:23 AM) Pulse Rate [55-90 bpm] 52 bpm *L* (05/23/21 10:23 AM) Body Mass Index [18.5-24.99] 28.2 *H* (05/23/21 10:23 AM) Blood Pressure [90-138/55-84 mm Hg] 134/ 64mm Hg (05/23/21 10:23 AM) Blood pressure sites Arm, left (05/23/21 10:23 AM) Weight Obtained Via Standing scale (05/23/21 10:23 AM) Social History Social History Type Response Smoking Status Former smoker; Other : Smoking age 55. social smoker; entered on: 09/29/16 Sex Male
--- OUTSIDE RECORDS SUMMARY | 2024-05-22 07:13 | XMS_ITS | Continuity of Care Document ---
Author Organization [facility] [place] Ponce lt Address [address] [place] [id number]- Care Team Providers Care Labeling Specialist Name Role Phone Antony Pappas MD Primary Care Physician [place] [facility] [place]s): 01/05/20 - 01/12/20 [facility] Adult [address] [place] [address]- [facility] Encounter Diagnosis Back pain(Discharge Diagnosis) - 01/05/20 Attending Physician: Teena MENDEZ, Eliza Ridley Allergies, Adverse Reactions, Alerts Substance Reaction Severity [...] Note: BIOMEDICAL RADHA 4Admin Note: Biomedical Radha [facility] 5Admin Note: given in clinic Medications albuterol [...] 1 Refills, Maintenance, 01/10/20 15:14:00 EDT, Tablet, [facility], 159, cm, 01/05/20 10:36:00 EDT, Height Start Date: 01/10/20 Status: Ordered Breo Ellipta 100 mcg-25 mcg/inh inhalation powder 1 puffs, Inhalation, Daily, In place of QVAR 90 day supply, # 3 each, 1 Refills, Maintenance, 09/27/19 10:26:00 EST, Powder, [facility], 1 puffs Inhalation [...] 12/06/19 8:34:00 EDT, Route to Pharmacy Electronically, [facility], 159, cm, 12/06/19 7:56:00 EDT, Height Start Date: 12/06/19 Stop Date: 11/30/20 Status: Ordered glipiZIDE 10 mg oral tablet 1 tablet = 10 mg, By Mouth, 2 times a day, # 180 tablet, 1 Refills, Maintenance, 08/29/19 11:00:00 EST, Tablet, [facility], 159, cm, 05/05/19 [...] 10/31/18 14:12:28 EDT, Route to Pharmacy Electronically, [id number], [facility] Start Date: 10/31/18 Status: Ordered lisinopril 20 mg oral tablet 20 mg, 1, tablet, By Mouth, Daily, # 30 tablet, Refills 0, Tot. Refills 0, Maintenance, 11/01/18 13:59:18 EDT, Route to Pharmacy Electronically, [id number], [facility] [id number] Start Date: 11/01/18 Status: Ordered metoprolol 25 mg oral tablet 25 mg, 1, tablet, By Mouth, 2 times a day, # 180 tablet, Refills 1, Tot. Refills 1, Maintenance, 08/29/19 11:02:00 EST, Route to Pharmacy Electronically, [facility], No change from last Rx. from 02/06/19, 159, cm, 05/05/19 10:45:00 EDT, Height Start Date: 08/29/19 Status: Ordered ProAir HFA 90 mcg/inh inhalation aerosol with adapter 2, puffs, Inhalation, Every 6 hours, PRN, # 8.5 Gm, Refills 1, Tot. Refills 1, Maintenance, 02/01/19 10:58:44 EDT, Aerosol, Route to Pharmacy Electronically, [id number], [facility] Start Date: 02/01/19 Status: Ordered ReliOn/Novolin N 100 units/mL subcutaneous injection See Instructions, INJECT 18 UNITS SUBCUTANEOUSLY IN THE MORNING AND 9 IN THE EVENING, # 10 mL, 3 Refills, Maintenance, 08/17/19 13:20:00 EST, [facility], 90 day, 159, cm, 05/05/19 10:45:00EDT, Height Start Date: 08/17/19 Status: Ordered terazosin 5 mg oral capsule 5 mg, 1, capsule, By Mouth, Daily at bedtime, # 90 capsule, Refills 0, Tot. Refills 0, Maintenance,12/31/19 10:28:00 EDT, Route to Pharmacy Electronically, [facility], 159, cm, 12/06/19 7:56:00 EDT, Height Start Date: 12/31/19 Status: Ordered Vitamin D 16662 iu oral capsule 50,000 International_Units, 1, capsule, By Mouth, Every week, # 5 capsule, Refills 11, Tot. 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 8Methacholine challenge test 2014 positive for asthma. 9Dr. Misa 2014 10Patient declines further PSA testing as of October 2015. Diagnosis Diagnosis Type Effective Dates Health Status Clini wally Service Informant Back pain Discharge Diagnosis 01/05/20 Vital Signs Most recent to oldest [Reference Range]: 1 Height 159 cm (01/05/20 10:36 AM) Social History Social History Type Response Smoking Status Former smoker; Other : Smoking age 55. social smoker; entered on: 09/29/16 Sex
--- OUTSIDE RECORDS SUMMARY | 2024-05-22 07:13 | XMS_ITS | Continuity of Care Document ---
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 Role Phone Antony Pappas MD Primary Care Physician [place] [facility] [place](s[place] 12/06/19 - 12/13/19 [facility] Adult [address] [place] [address]- [facility] Encounter Diagnosis Anemia of chronic disease(Discharge Diagnosis) - 12/06/19 Asthma, mild intermittent, well-controlled(Discharge Diagnosis) - 12/06/19 Background diabetic retinopathy(Discharge Diagnosis) - 12/06/19 CAD (coronary artery disease)(Discharge Diagnosis) - 12/06/19 CHF (congestive heart failure)(Discharge Diagnosis) - 12/06/19 Chronic renal disease, stage III(Discharge Diagnosis) - 12/06/19 Diabetic neuropathy(Discharge Diagnosis) - 12/06/19 Hypercholesterolemia(Discharge Diagnosis) - 12/06/19 RA (rheumatoid arthritis)(Discharge Diagnosis) - 12/06/19 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 5Admin Note: given in clinic Medications [...] Refills, Maintenance, Tablet, Route to Pharmacy Electronically, [id number], [facility] Start Date: 11/18/18 Status: Ordered Breo Ellipta 100 mcg-25 mcg/inh inhalation powder 1 puffs, Inhalation, Daily, In place of QVAR 90 day supply, # 3 each, 1 Refills, Maintenance, 09/27/19 10:26:00 EST, Powder, [facility], 1 puffs Inhalation Daily,Instr:In [...] 12/06/19 8:34:00 EDT, Route to Pharmacy Electronically, [facility], 159, cm, 12/06/19 7:56:00 EDT, Height Start Date: 12/06/19 Stop Date: 11/30/20 Status: Ordered glipiZIDE 10 mg oral tablet 1 tablet = 10 mg, By Mouth, 2 times a day, # 180 tablet, 1 Refills, Maintenance, 08/29/19 11:00:00 EST, Tablet, [facility], 159, cm, 05/05/19 10:45:00 [...] 10/31/18 14:12:28 EDT, Route to Pharmacy Electronically, [id number], [facility] Start Date: 10/31/18 Status: Ordered lisinopril 20 mg oral tablet 20 mg, 1, tablet, By Mouth, Daily, # 30 tablet, Refills 0, Tot. Refills 0, Maintenance, 11/01/18 13:59:18 EDT, Route to Pharmacy Electronically, [id number], [facility] [id number] Start Date: 11/01/18 Status: Ordered metoprolol 25 mg oral tablet 25 mg, 1, tablet, By Mouth, 2 times a day, # 180 tablet, Refills 1, Tot. Refills 1, Maintenance, 08/29/19 11:02:00 EST, Route to Pharmacy Electronically, [facility], No change from last Rx. from 02/06/19, 159, cm, 05/05/19 10:45:00 EDT, Height Start Date: 08/29/19 Status: Ordered ProAir HFA 90 mcg/inh inhalation aerosol with adapter 2, puffs, Inhalation, Every 6 hours, PRN, # 8.5 Gm, Refills 1, Tot. Refills 1, Maintenance, 02/01/19 10:58:44 EDT, Aerosol, Route to Pharmacy Electronically, [id number], [facility] Start Date: 02/01/19 Status: Ordered ReliOn/Novolin N 100 units/mL subcutaneous injection See Instructions, INJECT 18 UNITS SUBCUTANEOUSLY IN THE MORNING AND 9 IN THE EVENING, # 10 mL, 3 Refills, Maintenance, 08/17/19 13:20:00 EST, [facility], 90 day, 159, cm, 05/05/19 10:45:00EDT, Height Start Date: 08/17/19 Status: Ordered terazosin 5 mg oral capsule 5 mg, 1, capsule, By Mouth, Daily at bedtime, # 90 capsule, Refills 3, Tot. Refills 3, Maintenance,01/10/19 11:43:33 EDT, Route to Pharmacy Electronically, [id number], [facility] Start Date: 01/10/19 Status: Ordered Vitamin D 11417 iu oral capsule 50,000 International_Units, 1, capsule, By Mouth, Every week, # 5 capsule, Refills 11, Tot. [id number], Maintenance, 05/05/19 10:57:40 EDT, Route to Pharmacy Electronically, [id number] Start Date: 05/05/19 Status: Ordered [...] u/s 2009 5colo 2012 nl, repeat 2022 43595 normal, repeat 2010 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 8Methacholine challenge test 2014 positive for asthma. 9DrAngy Bynum 2014 10Patient declines further PSA testing as of October 2015. Diagnosis Diagnosis Type Effective Dates Health Status Clinical Service Informant Anemia of chronic disease Discharge Diagnosis 12/06/19 Asthma, mild intermittent, well-controlled Discharge Diagnosis 12/06/19 Background diabetic retinopathy Discharge Diagnosis 12/06/19 CAD (coronary artery disease) Discharge Diagnosis 12/06/19 CHF (congestive heart failure) Discharge Diagnosis 12/06/19 Chronic renal disease, stage III Discharge Diagnosis 12/06/19 Diabetic neuropathy Discharge Diagnosis 12/06/19 Hypercholesterolemia Discharge Diagnosis 12/06/19 RA (rheumatoid arthritis) Discharge Diagnosis 12/06/19 Type II diabetes mellitus with renal manifestations Discharge Diagnosis 12/06/19 Vital Signs Most recent to oldest [Reference Range]: 1 Height 159 cm (12/06/19 7:56 AM) Social History Social History Type Response Smoking Status Former smoker; Other : Smoking age 55. social smoker; entered on: 09/29/16 Sex
--- OUTSIDE RECORDS SUMMARY | 2024-05-22 07:13 | XMS_ITS | Continuity of Care Document ---
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 Refills 11, Maintenance, 06/07/2011:56:00 EST, Route to Pharmacy Electronically, [facility], Partial fill upon patient [...] 1 Refills, Maintenance, 08/01/20 9:55:00 EST, Tablet, [facility], 159, cm, 07/10/20 11:05:00 EST, Height Start Date: 08/01/20 Status: Ordered Breo Ellipta 100 mcg-25 mcg/inh inhalation powder 1 puffs, Inhalation, Daily, In place of QVAR 90 day supply, # 3 each, 1 Refills, Maintenance, 04/15/20 14:44:00 EDT, Powder, [facility], 1 puffs Inhalation Daily,Instr:In place of QVAR; 90day supply, 159, cm, 01/30/20 15:17:00 EDT, Height Start Date: 04/15/20 Status: Ordered ergocalciferol 58079 iu oral capsule 50,000 International_Units, 1, capsule, By Mouth, Every week, # 5 capsule, Refills 5, Tot. Refills 5, Maintenance, 05/29/20 13:54:00 EST, Route to Pharmacy Electronically, [facility], 159,cm, 05/24/20 8:57:00 EDT, [...] 12/06/19 8:34:00 EDT, Route to Pharmacy Electronically, [facility], 159, cm, 12/06/19 7:56:00 EDT, Height Start Date: 12/06/19 Stop Date: 11/30/20 Status: Ordered glipiZIDE 10 mg oral tablet 1 tablet = 10 mg, By Mouth, 2 times a day, # 180 tablet, 0 Refills, Maintenance, 06/03/20 15:55:00 EST, Tablet, [facility], 159, cm, 05/24/20 8:57:00 [...] 06/03/20 15:55:00 EST, Route to Pharmacy Electronically, [facility], 159, cm, 05/24/20 8:57:00 EDT, Height Start Date: 06/03/20 Status: Ordered Metoprolol Tartrate 25 mg oral tablet 1 tablet, By Mouth, 2 times a day, # 180 tablet, 0 Refills, Maintenance, 06/03/20 15:55:00 EST, [facility], 159, cm, 05/24/20 8:57:00 EDT, Height Start Date: 06/03/20 Status: Ordered ProAir HFA 90 mcg/inh inhalation aerosol with adapter 2, puffs, Inhalation, Every 6 hours, PRN, # 8.5 Gm, Refills 1, Tot. Refills 1, Maintenance, 02/01/19 10:58:44 EDT, Aerosol, Route to Pharmacy Electronically, [id number], [facility] Start Date: 02/01/19 Status: Ordered ReliOn/Novolin N 100 units/mL subcutaneous injection See Instructions, INJECT 18 UNITS SUBCUTANEOUSLY IN THE MORNING AND 9 IN THE EVENING, # 10 mL, 2 Refills, Maintenance, 05/29/20 13:05:00 EST, [facility], 90 day, 159, cm, 05/24/20 8:57:00 EDT, Height Start Date: 05/29/20 Status: Ordered sildenafil 25 mg oral tablet See Instructions, PRN Other, 1 tablet By Mouth Daily as needed prior to sexual intercourse, # 2 tablet, 11 Refills, Maintenance, 06/25/20 15:44:00 EST, Tablet, [facility], 159, cm, 06/25/20 9:48:00 EST, Height Start Date: 06/25/20 Status: Ordered terazosin 5 mg oral capsule 5 mg, 1, capsule, By Mouth, Daily at bedtime, # 90 capsule, Refills 1, Tot. Refills 1, Maintenance,04/15/20 14:45:00 EDT, Route to Pharmacy Electronically, [facility], 159, cm, 01/30/20 15:17:00 [...] u/s 2009 5colo 2012 nl, repeat 2022 37770 normal, repeat 2010 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 8Methacholine challenge test 2014 positive for asthma. 9Dr. Misa 2014 10Patient declines further PSA testing as of October 2015. Social History Social History Type Response Smoking Status Former smoker; Other : Smoking age 55. social smoker; entered on: 09/29/16 Sex Male
[2024-05-22 07:20] LABS: B Type Natriuretic Peptide 6750 pg/mL (<100)
[2024-05-22] MEDS: Albumin Human 25 % 100 ML 133.33 ML IV ×2 (07:22→08:24)
[2024-05-22 07:53] LABS: Procalcitonin 0.24 ng/mL
[2024-05-22 08:27] LABS: Reflex Lactate? Lactic Acid Added
--- NOTE | 2024-05-22 09:12 | PC.NURSE ---
Late charting d/t pt care: Resumed care of pt at 0700. Pt resting in bed, alert to self only. Per family this AMS is new onset. 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 Sepsis protocol in place d/t tachycardia, tachypnea, and febrile. Respirations even and unlabored, no increased wob/sob noted, s1 and s2 heard, sinus tach, abdomen soft, non-tender. Dialysis port to right upper chest, redness/warmth noted on right upper chest. Per family pt was recently at [facility] for rehab, after arriving home AMS started. Family also states last dialysis was Saturday 05/19. Family at bedside, call bhatti within reach, all needs met at this time.
--- NOTE | 2024-05-22 09:21 | PHA.MEDREC ---
Pharmacy Consult ? Medication Reconciliation Pharmacy has completed the medication reconciliation. Utlized discharge packet from 05/05. Patient's family at bedside, spoke with daughter who had a list. Daughter confirm pt is on Insulin Lispro sliding scale, and when asked about the units for Insulin Glargine, daughter confirmed they are giving 30 units, even though discharge packet from 05/05 states 16 units. Daughter denied heparin when asked.
[2024-05-22 09:33] LABS: ~Lactic Acid-LAB USE ONLY 1.4 mmol/L (0.5-2.0)
[2024-05-22 09:44] LABS: Troponin-I High Sensitivity 36.6 ng/L (<3.5-35.0)
--- NOTE | 2024-05-22 10:25 | PC.NURSE ---
Pt BP noted to be 90s/50s, provider made aware.
--- NOTE | 2024-05-22 10:30 | PC.NURSE ---
Per SECURITY NURSE, monitor pt BP closely. Last BP 99/54
--- NOTE | 2024-05-22 11:37 | P.HPHOSP_ITS ---
History of Present Illness Date of Service: 05/22/24 Chief Complaint: fever Patient is an 83-year-old male with history of CHFrEF, aortic valve replacement, DM, HTN, COPD, ESRD on HD TuThSat, recently discharged on 05/05, presenting to the ED from [facility] with complaint of left sided chest pain which has since resolved, and daughter also reported that patient appeared to have altered mental status since yesterday morning. Patient's only complaint at this time is feeling chills. Denies shortness of breath or difficulty breathing. Denies abdominal pain, nausea, vomiting or diarrhea. He was noted to have fever, tachycardia, leukocytosis. He was started on IV vancomycin, Zosyn and cefepime. Blood cultures were drawn. Creatinine noted to be 3.41 with a history of end- stage renal disease. When patient arrived to the ER was noted that right chest PermCath had no dressing and was crusted over. The concern is this may be the source of infection. Plan is to admit patient for further management treatment of severe sepsis secondary to possible line infection. Review of Systems 2 Review of Systems: Denies any recent fever chills or decrease in appetite respiratory denies any shortness of breath or cough cardiovascular denied chest pain gastrointestinal denies any dysphagia abdominal pain nausea vomiting or diarrhea genitourinary denies any dysuria frequency or hematuria musculoskeletal denies any joint pain or swelling neuropsych denies any weakness or seizures all other systems reviewed are negative [facility] Medical History KAILEY (acute kidney injury) Pneumonia CKD (chronic kidney disease) stage 3, GFR 30-59 ml/min Type 2 diabetes mellitus CHF (congestive heart failure) Hypertension Diabetes Asthma COPD (chronic obstructive pulmonary disease) CHF (congestive heart failure) Social History Household Members: Family Housing: Assisted Living Facility Do you presently have visiting nurse or other home services: No Alcohol intake: never Comment: refusing alarms Patient Tobacco Use Status: Former Tobacco user Second Hand Smoke Exposure: No Advance Directives Date on File: 03/13/22 service: No Current occupational status: retired Meds Allergies Allergy/AdvReac Type Severity Reaction Status Date / Time gabapentin AdvReac Severe Fever Verified 05/22/24 06:07 Active Medications: Current Medications Acetaminophen (Acetaminophen 325 Mg Tablet) 650 mg PO Q6H PRN PRN Reason: Pain, Mild (Pain Scale 1-3), fever or headache Calcium Carbonate (Calcium Carbonate 750 Mg Tab.Chew) 750 mg PO Q4H PRN PRN Reason: Heartburn Heparin Sodium (Porcine) (Heparin Sodium,Porcine 5,000 Unit/Ml Vial) 5,000 unit SUBCUT Q12H [facility] Sodium Chloride (Ns) 500 mls @ 500 mls/hr IV .Q1H [facility] Stop: 05/22/24 12:29 Magnesium Hydroxide (Milk Of Magnesia 30 Ml Oral.Susp) 30 ml PO DAILY PRN PRN Reason: Constipation Melatonin (Melatonin 3 Mg Tablet) 6 mg PO BEDTIME PRN PRN Reason: Insomnia Ondansetron HCl (Ondansetron Hcl 4 Mg/2 Ml Vial) 4 mg IVPUSH Q8H PRN PRN Reason: Nausea and Vomiting Sodium Chloride (0.9 % Sodium Chloride Flush 3 Ml Syringe) 3 ml IVFLUSH QSHIFT [facility] Home Medications ?Medication ?Instructions ?Recorded ?Confirmed ?Last Taken ?Type albuterol sulfate 90 mcg/actuation 2 puff PO Q6H PRN wheezing 03/11/22 05/22/24 05/21/24 History aerosol inhaler aspirin 81 mg tablet,delayed 81 mg PO DAILY 03/11/22 05/22/24 05/21/24 History release atorvastatin 80 mg tablet 1 tab PO DAILY 03/11/22 05/22/24 05/21/24 History montelukast 10 mg tablet 1 tab PO DAILY 03/11/22 05/22/24 05/21/24 History fluticasone fur. 200 mcg-umeclid 1 ea inhalation DAILY 04/05/24 05/22/24 05/21/24 History 62.5 mcg-vilant 25 mcg inhalat.powder (Trelegy Ellipta) Vitamin D2 1.25 mg PO SA 04/24/24 05/22/24 05/20/24 History insulin glargine 100 unit/mL 30 unit subcut DAILY 05/22/24 05/22/24 05/21/24 History subcutaneous solution (Lantus U-100 Insulin) insulin lispro 100 unit/mL See Protocol subcut USEASDIRECTD 05/22/24 05/22/24 05/21/24 History subcutaneous pen Physical Exam 2 Vital Signs and Narrative: Vital Signs: Last Vital Signs Temp 99.9 F 05/22/24 09:59 Pulse 92 05/22/24 09:59 Resp 18 05/22/24 09:59 BP 103/54 L 05/22/24 10:34 Pulse Ox 93 05/22/24 09:59 O2 Del Method Room Air 05/22/24 09:59 BMI result Body Mass Index 22.0 Appearing in no acute distress head is normocephalic atraumatic eyes pupils are PERRLA sclera is anicteric mouth throat mucous membranes are intact and moist neck is supple no lymphadenopathy, no JVD noted lung sounds are clear to auscultation heart regular rate rhythm, clear S1, S2 positive bowel sounds, abdomen is soft, nontender neuro patient is alert x3, no focal deficits right chest permacath Results Labs 05/23/24 07:58 05/23/24 07:58 Labs: Laboratory Results - last 24 hr 05/22/24 05/22/24 05/22/24 06:12 09:18 Unknown MCV 81.3 MCH 26.5 L MCHC 32.6 RDW 18.6 H Plt Count 233 MPV 8.2 L Immature Gran % (Auto) 0.5 H Neut % (Auto) 88.3 H Lymph % (Auto) 4.0 L [place] % (Auto) 6.5 Eos % (Auto) 0.4 Baso % (Auto) 0.3 Lymph # (Auto) 0.7 L [place] # (Auto) 1.2 Eos # (Auto) 0.1 Baso # (Auto) 0.1 Abs Immat Gran (auto) 0.09 H Absolute Neuts (auto) 15.7 H Absolute Nucleated RBC 0.000 Nucleated RBC % (auto) 0.0 Anion Gap 15 Estim Creat Clear Calc 13.9 Estimated GFR 17 Random Glucose 246 H Lactic Acid 2.8 H* Lactic Acid F/U @ 2Hr 1.4 Calcium 9.0 D Magnesium 1.9 Total Bilirubin 1.2 H Direct Bilirubin 0.5 AST 21 ALT 16 Alkaline Phosphatase 167 H Troponin I High Sens 30.2 D 36.6 H C-Reactive Protein 0.86 H B-Natriuretic Peptide 6750 H Total Protein 6.5 Albumin 3.4 L Lipase 279 H Procalcitonin 0.24 Influenza Type A (PCR) NEGATIVE Influenza Type B (PCR) NEGATIVE RSV RNA Qual (PCR) NEGATIVE SARS-CoV-2 RNA (RT-PCR) NEGATIVE Imaging Radiologist's Impressions: Impressions Chest X-Ray 05/22/24 06:09 IMPRESSION: *No acute cardiopulmonary abnormalities. *Right internal jugular dual-lumen catheter terminating within the right atrium. Electronically signed by: Brannon Armstrong MD 05/22/2024 06:56 AM EDT RP Assessment and Plan (1) Sepsis: Status: Acute Plan 83 year old man presenting with fever and sepsis Severe sepsis possibly secondary to line infection from dialysis permacath Treat with vancomycin and Zosyn on dialysis days ID consult Follow blood cultures, will have to remove catheter if infected End-stage renal disease on dialysis Nephrology consultation to scheduled dialysis Diabetes mellitus type 2 Sliding scale, ADA diet, Lantus Hypertension Soft blood pressure readings Hold antihypertensives for now COPD/asthma No exacerbation Albuterol as needed Hyperlipidemia Continue aspirin and statin DVT prophylaxis with heparin Full code Quality Stroke Does the patient have a stroke diagnosis?: No VTE Prior VTE?: No VTE Risk Level:: Medical - moderate - high VTE Device Contraindication: N/A - Device Ordered VTE Drug Contraindication: N/A - Med Ordered
--- OUTSIDE RECORDS SUMMARY | 2024-05-22 11:45 | XMS_ITS | Continuity of Care Document ---
Author Organization [facility] lt Address [address] [place] [address]- Care Team Providers Care Shampoo Technician Name Role Phone Antony Pappas MD Primary Care Physician [phone] Encounter [facility] Date(s): 08/04/23 - 09/03/23 [facility] [address] [place] [address]- Allergies, Adverse Reactions, Alerts No Known Allergies [...] n pneumococcal 20-valent conjugate vaccine 12/31/22 Given [id number] 12y+ bivalent booster vax 06/10/22 Given SARS-CoV-2 [...] tetanus-diphtheria toxoids (Td) 07/26/98 Given 1Result Comment: [facility] # 2 scheduled for 10/02/20 2Admin Note: given in clinic 3Admin Note: vis given 4Admin Note: BIOMEDICAL RADHA 5Admin Note: Biomedical Radha [facility] 6Admin Note: given in clinic Medications amLODIPine 2.5 mg oral tablet 1 tablet, By Mouth, Daily, # 90 tablet, 1 Refills, Maintenance, 07/17/23 12:36:00 EST, [id number], 160, cm, 05/17/23 [...] tablet, 1 Refills, Maintenance, 08/17/23 16:12:00 EST, [id number], 160, cm, 05/17/23 10:46:00 EDT, Height, 65, kg, 04/28/22 7:07:00 EDT, Dry Weight Start Date: 08/17/23 Status: Ordered ergocalciferol 41632 iu oral capsule 1, capsule, By Mouth, Every week, # 5 capsule, Refills 11, Tot. Refills 11, Maintenance, 03/09/23 11:38:00 EDT, Route to Pharmacy Electronically, [id number], 160, cm, 12/31/22 9:21:00 EDT,Height, 65, kg, 04/28/22 7:07:00 EDT, Dry Weight Start Date: 03/09/23 Status: Ordered Farxiga 5 mg oral tablet 1 tablet, By Mouth, Daily, # 90 tablet, 3 Refills, Maintenance, 06/02/23 9:27:00 EST, [facility], 160, cm, 05/17/23 [...] Replace Required Details, Route to Pharmacy Electronically, [facility], 160, cm, 0... Start Date: 09/01/23 Status: Ordered glipiZIDE 10 mg oral tablet 1 tablet, By Mouth, 2 times a day, # 180 tablet, 3 Refills, Maintenance, 09/22/22 12:28:00 EST, [id number], 160, cm, 09/09/22 14:01:00 EST, Height, 65, kg, 04/28/22 7:07:00 EDT, Dry Weight Start Date: 09/22/22 Status: Ordered Metoprolol Succinate ER 50 mg oral tablet, extended release 1 tablet, By Mouth, Daily, # 90 tablet, 3 Refills, Maintenance, 10/10/22 20:33:00 EDT, [facility], 160, cm, 09/24/22 9:03:00 EST, Height, 65, kg, 04/28/22 7:07:00 EDT, Dry Weight Start Date: 10/10/22 Status: Ordered montelukast 10 mg oral tablet 1, tablet, By Mouth, Daily, # 30 tablet, Refills 5, Tot. Refills 5, Maintenance, 06/28/23 10:39:00 EST, Route to Pharmacy Electronically, [facility], 160, cm, 05/17/23 10:46:00 EDT, Height, 65, kg, 04/28/22 7:07:00 EDT, Dry Weight Start Date: 06/28/23 Status: Ordered Pen [place], 30 G x 8 mm BD Ultra [...] 10:21:00 EDT, Aerosol, Route to Pharmacy Electronically, [id number], [facility], 159, cm, 11/10/21 [...] tablet, 1 Refills, Maintenance, 08/26/23 21:25:00 EST, [facility], 160, cm, 05/17/23 [...] each, 5 Refills, Maintenance, 03/22/23 15:46:00 EDT, [facility], Partial fill upon [...] u/s 2009 5colo 2012 nl, repeat 2022 13984 normal, repeat 2010 7Status post CABG ??1. 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) Start Jeronimo e:03/12/23 End Date:06/11/23 Status:Met Progression:Not Met Patient Care team information Care Team Personnel Name: Eliza Alejandre RN Position: [facility] RN Member Role: Primary Care Nurse Name: Breanna Moreno Position: [facility] Outreach Member Role: Lifetime Consulting Physician Name: Antony Pappas MD Position: [facility] Physician - Primary Care Member Role: PCP Address: Address: [address] [place] [id number]- Name: Silvia Lawrence RN Position: [facility] RN Member Role: Primary Care Nurse Name: Sahra (Hina) Sarah Position: [facility] photographic engineer Member Role: Family Practice Medical Doctor Name: Laura Chapin RN Position: [facility] RN Member Role: Primary Care Nurse Name: Lenora Martines NP Position: Reference Physician Member Role: Primary Care Nurse Address: Address: [address] [place] [phone]- [place] Name: Carrol Strauss RN Position: [facility] AMB Nurse Member Role: Primary Care Nurse Name: Claire Carr RN Position: [facility] RN Member Role: Primary Care Nurse Name: Rachel Robledo RN Position: [facility] RN Member Role: Primary Care Nurse Name: Richa Owens RN Position: [facility] RN Member Role: Primary Care Nurse Care Team Related Persons Name: J LUIS HOFF Address: home [address] [place] [address] Name: HARVINDER FRANCISCO Address: home [address] [place] [address]
[2024-05-22] MEDS: 0.9 % Sodium Chloride 500 ML IV (11:59)
[2024-05-22] MEDS: Heparin Sodium,Porcine 5,000 UNIT/ML VIAL 5000 UNIT SUBCUT (11:59)
--- NOTE | 2024-05-22 12:32 | PC.NURSE ---
circular saw operator Rachel to bedside to draw BC x 1 off dialysis port, BC drawn without issue, rachel redressed dialysis port. This RN called [employer] to confirm that they could see the labels amended to state off diaylisis port, amended note visible to [facility]. BC sent via bullet w/o issue.
--- NOTE | 2024-05-22 13:19 | PM.CNNEP ---
History of Present Illness Reason for Consult Consult date: 05/22/24 Chief Complaint Chief complaint: severe sepsis line infection History of Present Illness Narrative: 83 y/o male with ESRD on HD Tues,Th,Sat, CHFrEF, aortic valve replacement, DMII, HTN, COPD. Had recent hospital admission and was discharged on 05/05 to [facility] where he was receiving HD, developed left-sided chest pain and AMS 05/21, these have resolved and now complaining of chills, general malaise. pt has right IJ permacath in place for HD. Nephrology consulted for ESRD management. Patient reports he is not feeling well, feels cold, tired, does not specify other complaints. Review of Systems Constitutional: Reports chills, Reports fatigue, Denies headache(s) and Reports malaise Denies dizziness and Denies headache(s) Cardiovascular: Denies chest pain, Denies lightheadedness and Denies dyspnea Respiratory: Denies cough and Denies dyspnea Gastrointestinal: Denies abdominal pain Genitourinary: Denies hematuria, Reports oliguria (baseline oliguria every few days voids 2/2 ESRD) and Denies flank pain Musculoskeletal: Denies arthralgias and Denies muscle cramps Skin/Breast: Denies rash Denies dizziness and Denies headache(s) Endocrine: Reports fatigue PMFSH Past Medical History Medical History KAILEY (acute kidney injury) Pneumonia CKD (chronic kidney disease) stage 3, GFR 30-59 ml/min Type 2 diabetes mellitus CHF (congestive heart failure) Hypertension Diabetes Asthma COPD (chronic obstructive pulmonary disease) CHF (congestive heart failure) Social History Social History Household Members: Family Housing: House Do you presently have visiting nurse or other home services: No Alcohol intake: never Comment: refusing alarms Patient Tobacco Use Status: Former Tobacco user Second Hand Smoke Exposure: No Advance Directives Date on File: 03/13/22 service: No Current occupational status: retired Meds Allergies Allergy/AdvReac Type Severity Reaction Status Date / Time gabapentin AdvReac Severe Fever Verified 05/22/24 06:07 Active Medications: Current Medications Acetaminophen (Acetaminophen 325 Mg Tablet) 650 mg PO Q6H PRN PRN Reason: Pain, Mild (Pain Scale 1-3), fever or headache Last Admin: 05/22/24 12:56 Dose: 650 mg Calcium Carbonate (Calcium Carbonate 750 Mg Tab.Chew) 750 mg PO Q4H PRN PRN Reason: Heartburn Heparin Sodium (Porcine) (Heparin Sodium,Porcine 5,000 Unit/Ml Vial) 5,000 unit SUBCUT Q12H [facility] Last Admin: 05/22/24 11:59 Dose: 5,000 unit Magnesium Hydroxide (Milk Of Magnesia 30 Ml Oral.Susp) 30 ml PO DAILY PRN PRN Reason: Constipation Melatonin (Melatonin 3 Mg Tablet) 6 mg PO BEDTIME PRN PRN Reason: Insomnia Ondansetron HCl (Ondansetron Hcl 4 Mg/2 Ml Vial) 4 mg IVPUSH Q8H PRN PRN Reason: Nausea and Vomiting Sodium Chloride (0.9 % Sodium Chloride Flush 3 Ml Syringe) 3 ml IVFLUSH QSHIFT [facility] Home Medications ?Medication ?Instructions ?Recorded ?Confirmed ?Last Taken ?Type albuterol sulfate 90 mcg/actuation 2 puff PO Q6H PRN wheezing 03/11/22 05/22/24 05/21/24 History aerosol inhaler aspirin 81 mg tablet,delayed 81 mg PO DAILY 03/11/22 05/22/24 05/21/24 History release atorvastatin 80 mg tablet 1 tab PO DAILY 03/11/22 05/22/24 05/21/24 History montelukast 10 mg tablet 1 tab PO DAILY 03/11/22 05/22/24 05/21/24 History fluticasone fur. 200 mcg-umeclid 1 ea inhalation DAILY 04/05/24 05/22/24 05/21/24 History 62.5 mcg-vilant 25 mcg inhalat.powder (Trelegy Ellipta) Vitamin D2 1.25 mg PO SA 04/24/24 05/22/24 05/20/24 History insulin glargine 100 unit/mL 30 unit subcut DAILY 05/22/24 05/22/24 05/21/24 History subcutaneous solution (Lantus U-100 Insulin) insulin lispro 100 unit/mL See Protocol subcut USEASDIRECTD 05/22/24 05/22/24 05/21/24 History subcutaneous pen Physical Exam Vital Signs: Last Vital Signs Temp 100.4 F 05/22/24 13:06 Pulse 101 H 05/22/24 13:06 Resp 19 05/22/24 13:06 BP 109/55 L 05/22/24 13:06 Pulse Ox 97 05/22/24 13:06 O2 Del Method Room Air 05/22/24 13:06 BMI result Body Mass Index 22.0 Const General: no acute distress, awake and lethargic Orientation/consciousness: lethargic Resp Effort & Inspection: normal respiratory effort Auscultation: clear to auscultation bilaterally Cardio Rate: regular rate Rhythm: regular rhythm Heart sounds: S1 normal heart sound present, S2 normal heart sound present and Murmur heart sound present Bruits: femoral bruit GI Palpation (GI): Soft to palpation and nontender General: Yes bladder normal to inspection and Yes no CVA tenderness Back/Spine/Pelvis Back: no CVA tenderness Skin Lesions: no lesions Rashes: no rashes Neuro Other: no tremors/myoclonus on exam Extrem General: No edema and No pedal edema Results Lab Results 05/22/24 06:12 05/22/24 06:12 Lab results: Chemistry 05/22/24 06:12 Sodium 135 Potassium 4.3 D Carbon Dioxide 22 BUN 22 H Creatinine 3.41 H Calcium 9.0 D Hematology 05/22/24 06:12 WBC 17.8 H Hgb 11.8 L Plt Count 233 Assessment and Plan (1) ESRD (end stage renal disease) on dialysis: Status: Acute Plan Patient with ESRD on HD here for chills/malaise evalution of possible sepsis he is on schedule for HD tomorrow, 05/23, has not missed a session right IJ permacath in place, no erythema, dressing intact He appears euvolemic today Blood pressures acceptable Oliguria at baseline H&H /8 and 36.2 05/22, no indication for procrit at this time calcium 9.0 on 05/22, other electrolytes also WNL Will continue to follow Discussed with Dr Zuniga. Procedures Date of Service Date of Service: 05/22/24
--- NOTE | 2024-05-22 15:00 | PC.NURSE ---
Provider Melissa De León made aware fever 100.8 tylenol last given 1230, awaiting orders.
--- NOTE | 2024-05-22 15:47 | PC.NURSE ---
Patient found to have pull out 1 IV, scratching skin violently. Patient given bed bath, lotion applied. Fever still high, 100.8 rectal probe.
[2024-05-22] MEDS: Piperacillin Sodium/Tazobactam 2.25 GM in 0.9 % Sodium Chloride 50 ML IV (16:18)
[2024-05-22] MEDS: Ketorolac Tromethamine 15 MG/ML VIAL IVPUSH (16:20)
[2024-05-22] MEDS: 0.9 % Sodium Chloride Flush 3 ML SYRINGE IVFLUSH (16:29)
--- NOTE | 2024-05-22 16:34 | PC.NURSE ---
Asked provider if she wanted to do a cooling blanket, temp increased to 101.1, tachy w/ rigors. Cooling blanket and toradol ordered, given per SEP. Gideon cath in placed.
--- NOTE | 2024-05-22 16:37 | PHA.PROG ---
Admission Date/Time: May 22, 2024 11:33 Indication: Sepsis Weight in k.2 kg Adjusted body weight in Kg: [place] body weight in Kg: Obesity Dosing Indication % IBW: Serum Creatinine - Last 168 Hours 05/22/24 06:12 Creatinine 3.41 H Estimated CrCl and GFR - Last 168 Hours 05/22/24 06:12 Estim Creat Clear Calc 13.9 Estimated GFR 17 Vancomycin Loading Dose: 1500 mg x 1 Current Vancomycin Dosing Regimen: N/A Vancomycin Monitoring using AUC goal of 400 - 600 range with trough as surrogate marker: Date and Time for next Vancomycin Level to be drawn: Pharmacist Comments on Vancomycin Plan: Pt received loading dose, supposed to be on dialysis. Will pend dose for now, we will need to see when they will be dialyzed and order random afterwards to assess next dose. Vancomycin dosing will take advantage of [employer] as a clinical decision support tool that uses Bayesian modeling to calculate individual patient's pharmacokinetic parameters and forecast the patient's drug concentration time course with the target goal AUC 24 range of 400 - 600 mg/L/hr.
[2024-05-22 16:52] LABS: Appearance Urine Turbid; Color Urine Yellow; Glucose Urine UA 500 mg/dL (Negative); Leukocyte Esterase Urine Moderate (2+) (Negative); Nitrite Urine Negative (Negative); UMIC TRIGGER UACC YES; Urine Blood Moderate (2+) (Negative); Urine Ketones Trace mg/dL (Negative); Urine Protein 300 (3+) mg/dL (Neg-Trace)
[2024-05-22 17:42] LABS: UACC Culture Trigger YES
[2024-05-22 17:43] LABS: WBC Urine >50 /HPF (0-5)
[2024-05-22 17:44] LABS: Bacteria Urine 3+ (None Seen); Granular Casts Urine Present
[2024-05-23] VITALS (8 sets, daily range): BP systolic 96–117; BP diastolic 53–61; PULSE 73–161; RESP 19–20; TEMP 36.6–37.4; O2SAT 92–99
[2024-05-23] MEDS: Heparin Sodium,Porcine 5,000 UNIT/ML VIAL 5000 UNIT SUBCUT ×2 (01:08→15:02)
[2024-05-23] MEDS: 0.9 % Sodium Chloride Flush 3 ML SYRINGE IVFLUSH ×4 (01:09→23:53)
[2024-05-23] MEDS: Piperacillin Sodium/Tazobactam 2.25 GM in 0.9 % Sodium Chloride 50 ML IV ×4 (01:09→23:52)
[2024-05-23 08:52] LABS: Hematocrit 34.5 % (42.0-52.0); Mean Corpuscular HGB Conc 31.9 g/dl (31.0-36.0); Mean Corpuscular Hemoglobin 26.6 pg (27.0-33.0); Mean Corpuscular Volume 83.3 fL (80.0-98.0); Mean Platelet Volume 8.7 fL (9.4-12.4); Platelet Count 189 X10*3/uL (160-400); Red Blood Count 4.14 X10*6/uL (4.60-5.80); Red Cell Distribution Width 19.2 % (11.0-16.0); White Blood Count 16.9 X10*3/uL (4.8-10.8)
[2024-05-23] MEDS: Acetaminophen 325 MG TABLET 650 MG PO (09:14)
[2024-05-23] MEDS: Sevelamer Carbonate Tablet 800 MG TABLET PO ×3 (09:14→18:08)
[2024-05-23] MEDS: Insulin Glargine,Hum.rec.anlog 100 UNIT/ML 10 ML VIAL 30 UNIT SUBCUT (09:15)
[2024-05-23] MEDS: Montelukast Sodium 10 MG TABLET PO (09:15)
[2024-05-23] MEDS: Atorvastatin Calcium 80 MG TABLET PO (09:15)
[2024-05-23] MEDS: Aspirin Enteric Coated 81 MG TABLET.DR PO (09:15)
[2024-05-23] MEDS: Isosorbide Mononitrate 30 MG TAB.ER.24H PO (09:15)
[2024-05-23] MEDS: Metoprolol Succinate ER 25 MG TAB.ER.24H PO (09:15)
[2024-05-23 10:00] LABS: Creatinine Clr Calc Pharmacy 11.9; Estimated Glomerular Filt Rate 14
[2024-05-23 10:01] LABS: Anion Gap 14 (12-20); Blood Urea Nitrogen 29 mg/dL (9-16); Carbon Dioxide 22 mmol/L (22-29); Chloride 102 mmol/L (96-108); Creatinine Clr Calc Pharmacy 12.3; Estimated Glomerular Filt Rate 15; Glucose Random 293 mg/dL (60-115); Phosphorus 1.5 mg/dL (2.7-4.5); Potassium 4.3 mmol/L (3.3-5.1); Sodium 134 mmol/L (135-145)
--- NOTE | 2024-05-23 10:45 | P.PNIM_ITS ---
Subjective Subjective Date of Service: 05/23/24 Review of Systems Follow up sepsis from line infection and bacteremia some confusion no pain Physical Exam 2 Vital Signs: Vital Signs: Last Vital Signs Temp 99.3 F 05/23/24 08:54 Pulse 161 H 05/23/24 09:15 Resp 20 05/23/24 08:00 BP 104/53 L 05/23/24 09:15 Pulse Ox 92 05/23/24 08:00 O2 Del Method Room Air 05/23/24 08:00 BMI result Body Mass Index 22.0 Appearing in no acute distress lung sounds are clear to auscultation heart regular rate rhythm, clear S1, S2 positive bowel sounds, abdomen is soft, nontender neuro patient is alert x3, no focal deficits Right permacath present Objective Data Active Medications Acetaminophen (Acetaminophen 325 Mg Tablet) 650 mg PO Q6H PRN PRN Reason: Pain, Mild (Pain Scale 1-3), fever or headache Last Admin: 05/23/24 09:14 Dose: 650 mg Documented By: TARUN Aspirin (Aspirin Enteric Coated 81 Mg Tablet.Dr) 81 mg PO DAILY [facility] Last Admin: 05/23/24 09:15 Dose: 81 mg Documented By: TARUN Atorvastatin Calcium (Atorvastatin Calcium 80 Mg Tablet) 80 mg PO DAILY [facility] Last Admin: 05/23/24 09:15 Dose: 80 mg Documented By: TARUN Calcium Carbonate (Calcium Carbonate 750 Mg Tab.Chew) 750 mg PO Q4H PRN PRN Reason: Heartburn Ergocalciferol (Ergocalciferol (Vitamin D2) 1,250 Mcg Capsule) 1,250 mcg PO [facility] Fluticasone/Umeclidinium/Vilanterol (Fluticasone/Umeclidinium/Vilanterol 200/62.5/25 Blst.W.Dev) 1 puff INHALE RDAILY [facility] Heparin Sodium (Porcine) (Heparin Sodium,Porcine 5,000 Unit/Ml Vial) 5,000 unit SUBCUT Q12H [facility] Last Admin: 05/23/24 01:08 Dose: 5,000 unit Documented By: SHEA Heparin Sodium (Porcine) (Heparin Sodium,Porcine 5,000 Unit/Ml Vial) 5,000 unit INTRACATH [id number] [facility] Piperacillin Sod/Tazobactam (Sod 2.25 gm/ Sodium Chloride) 50 mls @ 100 mls/hr IV Q8H [facility] Last Infusion: 05/23/24 10:09 Dose: Infused Documented By: RADHA Vancomycin HCl 500 mg/ Sodium (Chloride) 110 mls @ 110 mls/hr IV ONCE ONE Stop: 05/24/24 09:59 Insulin Glargine (Insulin Glargine,Hum.Rec.Anlog 100 Unit/Ml 10 Ml Vial) 30 unit SUBCUT DAILY [facility] Last Admin: 05/23/24 09:15 Dose: 30 unit Documented By: TARUN Isosorbide Mononitrate (Isosorbide Mononitrate 30 Mg Tab.Er.24h) 30 mg PO DAILY [facility]; Protocol Last Admin: 05/23/24 09:15 Dose: 30 mg Documented By: TARUN Magnesium Hydroxide (Milk Of Magnesia 30 Ml Oral.Susp) 30 ml PO DAILY PRN PRN Reason: Constipation Melatonin (Melatonin 3 Mg Tablet) 6 mg PO BEDTIME PRN PRN Reason: Insomnia Metoprolol Succinate (Metoprolol Succinate Er 25 Mg Tab.Er.24h) 25 mg PO DAILY [facility]; Protocol Last Admin: 05/23/24 09:15 Dose: 25 mg Documented By: TARUN Montelukast Sodium (Montelukast Sodium 10 Mg Tablet) 10 mg PO DAILY [facility] Last Admin: 05/23/24 09:15 Dose: 10 mg Documented By: TARUN Ondansetron HCl (Ondansetron Hcl 4 Mg/2 Ml Vial) 4 mg IVPUSH Q8H PRN PRN Reason: Nausea and Vomiting Pharmacy Consult (Consult Rx Vancomycin Dosing) 1 each MISCELLANE DAILY PRN PRN Reason: Consult order Sevelamer Carbonate (Sevelamer Carbonate Tablet 800 Mg Tablet) 800 mg PO TIDWM [facility] Last Admin: 05/23/24 09:14 Dose: 800 mg Documented By: TARUN Sodium Chloride (0.9 % Sodium Chloride Flush 3 Ml Syringe) 3 ml IVFLUSH QSHIFT [facility] Last Admin: 05/23/24 09:16 Dose: 3 ml Documented By: TARUN Labs 05/23/24 07:58 05/23/24 07:58 Labs: Laboratory Results - last 24 hr 05/22/24 05/23/24 05/23/24 16:27 07:58 07:58 MCV 83.3 MCH 26.6 L MCHC 31.9 RDW 19.2 H Plt Count 189 MPV 8.7 L Absolute Nucleated RBC 0.000 Nucleated RBC % (auto) 0.0 Anion Gap 14 Estim Creat Clear Calc 12.3 11.9 Estimated GFR 15 Random Glucose Calcium Phosphorus Urine Color Yellow Urine Appearance Turbid Urine pH 5.0 Ur Specific [place] 1.020 Urine Protein 300 (3+) H Urine Glucose (UA) 500 H Urine Ketones Trace Urine Blood Moderate (2+) H Urine Nitrite Negative Ur Leukocyte Esterase Moderate (2+) H Urine RBC 6-10 H Urine WBC >50 H Ur Squamous Epith Cells 3-5 Urine Bacteria 3+ Hyaline Casts 3-5 Granular Casts Present 05/23/24 07:58 MCV MCH MCHC RDW Plt Count MPV Absolute Nucleated RBC Nucleated RBC % (auto) Anion Gap Estim Creat Clear Calc Estimated GFR 14 Random Glucose 293 H Calcium 8.0 L D Phosphorus 1.5 L Urine Color Urine Appearance Urine pH Ur Specific [place] Urine Protein Urine Glucose (UA) Urine Ketones Urine Blood Urine Nitrite Ur Leukocyte Esterase Urine RBC Urine WBC Ur Squamous Epith Cells Urine Bacteria Hyaline Casts Granular Casts Microbiology Microbiology Results: Microbiology 05/22/24 06:12 Blood Culture - Preliminary Blood - Venous Prelim: GPC Gram Stain only 05/22/24 06:12 Blood Culture - Preliminary Blood - Venous Prelim: GPC Gram Stain only Assessment and Plan (1) Sepsis: Status: Acute Plan 83 year old man presenting with fever and sepsis Severe sepsis with GPC bacteremia Fever, tachycardia, leukocytosis, lactic acidosis Likely secondary to line infection from dialysis permacath continue IV vancomycin , Zosyn stopped ID consult pending Plan for permacath removal today after dialysis if cx clears, permacath to be replaced on 05/25 if not Angel cath will be placed untill cx clears End-stage renal disease on dialysis Nephrology following T<TH<SA Diabetes mellitus type 2 Sliding scale, ADA diet, Lantus Hypertension Soft blood pressure readings Hold antihypertensives for now COPD/asthma No exacerbation Albuterol as needed Hyperlipidemia Continue aspirin and statin DVT prophylaxis with heparin Attending Dr. Lind Full code Quality Stroke Does the patient have a stroke diagnosis?: No VTE Prior VTE?: No VTE Risk Level:: Medical - moderate - high VTE Device Contraindication: N/A - Device Ordered VTE Drug Contraindication: N/A - Med Ordered
--- NOTE | 2024-05-23 11:19 | P.PNNP_ITS ---
Subjective Subjective Date of Service: 05/23/24 Principal diagnosis: CHF exacerbation Interval history: 83 y/o male with ESRD on HD ,,Wed, CHFrEF, aortic valve replacement, DMII, HTN, COPD. Had recent hospital admission and was discharged on 05/05 to [facility] where he [facility] receiving [facility], developed left-sided chest pain and AMS 05/21, these have resolved and now complaining of chills, general malaise. pt has right IJ permacath in place for HD- concern for infection. 05/22 preliminary blood cultures positive for GPC Nephrology consulted for ESRD management. Patient reports he is feeling ok today denies shortness of breath- lying flat comfortably this a.m. no UOP - pt reports only a small amount every few days at baseline due for HD today (, , Wed schedule) He denies nausea/vomiting, reports tremors at baseline/no changes, denies pruritis, muscle cramping Physical Exam 2 Vital Signs: Vital Signs: Last Vital Signs Temp 99.3 F 05/23/24 08:54 Pulse 161 H 05/23/24 09:15 Resp 20 05/23/24 08:00 BP 104/53 L 05/23/24 09:15 Pulse Ox 92 05/23/24 08:00 O2 Del Method Room Air 05/23/24 08:00 BMI result Body Mass Index 22.0 Const: General: no acute distress, awake and lethargic O rientation/consciousness: lethargic Resp: Effort & Inspection: normal respiratory effort Auscultation: clear to auscultation bilaterally Cardio: Rate: regular rate Rhythm: regular rhythm Heart sounds: S1 normal heart sound present, S2 normal heart sound present and Murmur heart sound present Bruits: femoral bruit GI: Palpation (GI): Soft to palpation and nontender : General: Yes bladder normal to inspection and Yes no CVA tenderness Back/Spine/Pelvis: Back: no CVA tenderness Skin: Lesions: no lesions Rashes: no rashes Neuro: Other: no tremors/myoclonus on exam Extrem: General: No edema and No pedal edema Objective Data Labs 05/23/24 07:58 05/23/24 07:58 Labs: Laboratory Results - last 24 hr 05/22/24 05/23/24 05/23/24 16:27 07:58 07:58 WBC 16.9 H RBC 4.14 L Hgb 11.0 L Hct 34.5 L MCV 83.3 MCH 26.6 L MCHC 31.9 RDW 19.2 H Plt Count 189 MPV 8.7 L Absolute Nucleated RBC 0.000 Nucleated RBC % (auto) 0.0 Sodium 134 L Potassium 4.3 Chloride 102 Carbon Dioxide 22 Anion Gap 14 BUN 29 H Creatinine 3.87 H 4.00 H* Estim Creat Clear Calc 12.3 Estimated GFR Random Glucose Calcium Phosphorus Urine Color Yellow Urine Appearance Turbid Urine pH 5.0 Ur Specific [place] 1.020 Urine Protein 300 (3+) H Urine Glucose (UA) 500 H Urine Ketones Trace Urine Blood Moderate (2+) H Urine Nitrite Negative Ur Leukocyte Esterase Moderate (2+) H Urine RBC 6-10 H Urine WBC >50 H Ur Squamous Epith Cells 3-5 Urine Bacteria 3+ Hyaline Casts 3-5 Granular Casts Present 05/23/24 05/23/24 07:58 07:58 WBC RBC Hgb Hct MCV MCH MCHC RDW Plt Count MPV Absolute Nucleated RBC Nucleated RBC % (auto) Sodium Potassium Chloride Carbon Dioxide Anion Gap BUN Creatinine Estim Creat Clear Calc 11.9 Estimated GFR 15 14 Random Glucose 293 H Calcium 8.0 L D Phosphorus 1.5 L Urine Color Urine Appearance Urine pH Ur Specific [place] Urine Protein Urine Glucose (UA) Urine Ketones Urine Blood Urine Nitrite Ur Leukocyte Esterase Urine RBC Urine WBC Ur Squamous Epith Cells Urine Bacteria Hyaline Casts Granular Casts Microbiology Microbiology Results: Microbiology 05/22/24 06:12 Blood - Venous Blood Culture - Preliminary Prelim: GPC Gram Stain only 05/22/24 06:12 Blood - Venous Blood Culture - Preliminary Prelim: GPC Gram Stain only Procedures Date of Service Date of Service: 05/23/24 Assessment & Plan Assessment and plan (1) CKD (chronic kidney disease) stage 4, GFR 15-29 ml/min: Status: Acute (2) Pulmonary edema: Status: Resolved (3) Congestive heart failure: Status: Acute (4) KAILEY (acute kidney injury): Status: Acute Plan Patient with ESRD on HD here for chills/malaise evaluation of possible sepsis he is on schedule for HD today, 05/23; has not missed a session right IJ permacath in place, no erythema- IJ to be removed by IR after HD session this a.m. due to infection concerns He appears euvolemic today Blood pressures acceptable Oliguria at baseline H&H 06/02 and 36.2 05/22, no indication for procrit at this time calcium 9.0 on 05/22, other electrolytes also WNL; will check phosphorous Will continue to follow Discussed with Dr Zuniga. Time Spent With Patient Time: Total time managing care of this patient today ____ minutes.
[2024-05-23] MEDS: Potassium Phosphate/NS 15 MMOL/250 ML PLAST..BAG 62.5 MMOL IV (15:01)
--- NOTE | 2024-05-23 15:03 | PM.PROC ---
Brief Operative Note Date of procedure: 05/23/24 Pre-op diagnosis: Bacteremia Post-op diagnosis: same Procedure: Right IJ Permacath removed. Tip sent for culture. No immediate complications.
--- NOTE | 2024-05-23 15:59 | MHC.CM.PN ---
IMM 05/23/24, Pt lives with his dtr and she takes care of him. He came here from [facility], where he went for STR following a stay in this hosp. HCP on file, his dtr, Denia. PCP is Antony Pappas. DCP: to return to STR via BLS. CM will follow and assist with DC plan.
[2024-05-23] MEDS: Mineral Oil/Petrolatum,White 106 GM Tube 1 APPL TOPICAL ×2 (18:08→21:00)
[2024-05-23 20:08] LABS: Vancomycin Random 11.7 mcg/mL (15-20)
[2024-05-23] MEDS: vancomycin HCL 500 MG in 0.9 % Sodium Chloride 100 ML 110 MG IV (22:03)
[2024-05-24] MEDS: Heparin Sodium,Porcine 5,000 UNIT/ML VIAL 5000 UNIT SUBCUT ×3 (03:00→23:35)
[2024-05-24 04:00] VITALS: BP 104/57; PULSE 88; RESP 16; TEMP 36.9; O2SAT 97
[2024-05-24 06:31] LABS: Creatinine Clr Calc Pharmacy 16.5; Estimated Glomerular Filt Rate 21; Phosphorus 2.1 mg/dL (2.7-4.5)
[2024-05-24 07:25] VITALS: BP 108/59; PULSE 82; RESP 17; TEMP 36.4; O2SAT 99
[2024-05-24 07:30] LABS: Glucose, Whole Blood 157 mg/dL (60-115)
[2024-05-24] MEDS: Piperacillin Sodium/Tazobactam 2.25 GM in 0.9 % Sodium Chloride 50 ML IV ×3 (08:34→23:31)
[2024-05-24] MEDS: 0.9 % Sodium Chloride Flush 3 ML SYRINGE IVFLUSH ×3 (08:40→23:34)
[2024-05-24] MEDS: Sevelamer Carbonate Tablet 800 MG TABLET PO ×3 (08:41→15:47)
[2024-05-24] MEDS: Metoprolol Succinate ER 25 MG TAB.ER.24H PO (08:41)
[2024-05-24] MEDS: Isosorbide Mononitrate 30 MG TAB.ER.24H PO (08:41)
[2024-05-24] MEDS: Aspirin Enteric Coated 81 MG TABLET.DR PO (08:41)
[2024-05-24] MEDS: Atorvastatin Calcium 80 MG TABLET PO (08:42)
[2024-05-24] MEDS: Montelukast Sodium 10 MG TABLET PO (08:42)
[2024-05-24] MEDS: Insulin Glargine,Hum.rec.anlog 100 UNIT/ML 10 ML VIAL 30 UNIT SUBCUT (08:42)
[2024-05-24 08:52] LABS: Anion Gap 14 (12-20); Carbon Dioxide 22 mmol/L (22-29); Chloride 104 mmol/L (96-108); Potassium 3.9 mmol/L (3.3-5.1); Sodium 136 mmol/L (135-145)
[2024-05-24] MEDS: Mineral Oil/Petrolatum,White 106 GM Tube 1 APPL TOPICAL ×2 (11:02→21:00)
--- NOTE | 2024-05-24 11:13 | HE.PHANOTE ---
methadone confirmation form Patient takes 120 mg of methadone daily from [facility] [phone]. last dose 05/23 @ 0900
[2024-05-24 11:23] VITALS: BP 105/54; PULSE 85; RESP 16; TEMP 36.8; O2SAT 99
[2024-05-24 11:29] LABS: Glucose, Whole Blood 282 mg/dL (60-115)
[2024-05-24] MEDS: Fluticasone/Umeclidinium/Vilanterol 200/62.5/25 BLST.W.DEV 1 PUFF INHALE (11:43)
--- NOTE | 2024-05-24 12:25 | PM.PNNEP ---
Subjective Subjective Date of Service: 05/24/24 Principal diagnosis: CHF exacerbation Interval history: 83 y/o male with ESRD on HD ,,Wed, CHFrEF, aortic valve replacement, DMII, HTN, COPD. Had recent hospital admission and was discharged on 05/[facility] to [facility] he [facility] receiving [facility], developed left-sided chest pain and AMS 05/21, these have resolved and now complaining of chills, general malaise. pt has right IJ permacath in place for HD- concern for infection. 05/22 preliminary blood cultures positive for GPC Nephrology consulted for ESRD management. Patient reports he is feeling well today denies shortness of breath- lying flat comfortably this a.m. has patel in place, drained 100mL this a.m. He denies nausea/vomiting, reports tremors at baseline/no changes, denies pruritis, muscle cramping He had HD yesterday 05/23 as per his regular schedule , , Wednesday He subsequently has his permacath pulled blood cultures positive for GPC; catheter tip culture pending/in progress Physical Exam Vital Signs: Vital Signs: Last Vital Signs Temp 98.3 F 05/24/24 11:23 Pulse 85 05/24/24 11:23 Resp 16 05/24/24 11:23 BP 105/54 L 05/24/24 11:23 Pulse Ox 99 05/24/24 11:23 O2 Del Method Room Air 05/24/24 11:23 BMI result Body Mass Index 22.0 Const: General: no acute distress, awake and lethargic Orientation/consciousness: lethargic Resp: Effort & Inspection: normal respiratory effort Auscultation: clear to auscultation bilaterally Cardio: Rate: regular rate Rhythm: regular rhythm Heart sounds: S1 normal heart sound present, S2 normal heart sound present and Murmur heart sound present Bruits: femoral bruit GI: Palpation (GI): Soft to palpation and nontender : General: Yes bladder normal to inspection and Yes no CVA tenderness Back/Spine/Pelvis: Back: no CVA tenderness Skin: Lesions: no lesions Rashes: no rashes Neuro: Other: no tremors/myoclonus on exam Extrem: General: No edema and No pedal edema Objective Data Labs 05/23/24 07:58 05/24/24 08:30 Labs: Laboratory Results - last 24 hr 05/23/24 05/24/24 05/24/24 16:18 05:57 07:26 Hold Purple Top SEE NOTE Sodium Potassium Chloride Carbon Dioxide Anion Gap Creatinine 2.89 H Estim Creat Clear Calc 16.5 Estimated GFR 21 POC Glucose 157 H Phosphorus 2.1 L Random Vancomycin 11.7 L 05/24/24 05/24/24 08:30 11:24 Hold Purple Top Sodium 136 Potassium 3.9 Chloride 104 Carbon Dioxide 22 Anion Gap 14 Creatinine Estim Creat Clear Calc Estimated GFR POC Glucose 282 H Phosphorus Random Vancomycin Microbiology Microbiology Results: Microbiology 05/22/24 16:27 Urine clean catch - Clean Catch Midstream Urine Culture - Final 05/23/24 14:45 Catheter Tip - Other Catheter Tip Culture - Preliminary Culture in progress. 05/22/24 12:24 Blood - Venous Blood Culture - Preliminary Prelim: GPC Gram Stain only 05/22/24 06:12 Blood - Venous Blood Culture - Preliminary Staphylococcus aureus 05/22/24 06:12 Blood - Venous Blood Culture - Preliminary Staphylococcus aureus Procedures Date of Service Date of Service: 05/24/24 Assessment & Plan Assessment and plan (1) CKD (chronic kidney disease) stage 4, GFR 15-29 ml/min: Status: Acute (2) Pulmonary edema: Status: Resolved (3) Congestive heart failure: Status: Acute (4) KAILEY (acute kidney injury): Status: Acute Plan Patient with ESRD on HD here for chills/malaise evaluation of possible sepsis he is on schedule for HD today, 05/23; has not missed a session permacath pulled 05/23 due to positive blood cultures He appears euvolemic today Blood pressures acceptable Oliguria at baseline H&H 06/02 and 36.2 05/22, no indication for procrit at this time calcium 8.0 on 05/23, phosphorous 2.1; other electrolytes also WNL; Will continue to follow Discussed with Dr Conner Time Spent With Patient Time: Total time managing care of this patient today ____ minutes. Progress Note: Quality Stroke Does the patient have a stroke diagnosis?: No
--- NOTE | 2024-05-24 12:58 | MHC.CM.PN ---
Per rounds, pt. is not ready for DC. He will have his catheter taken out today due to infection. CM to follow for DC needs.
--- NOTE | 2024-05-24 13:44 | HO.PM.IMPN ---
Subjective Subjective Date of Service: 05/24/24 Interval History: No acute issues overnight. No recent fever chills Review of Systems Denies chest pain Denies shortness of breath Denies nausea vomiting diarrhea Denies fever chills Physical Exam Vital Signs: Vital Signs: Last Vital Signs Temp 98.3 F 05/24/24 11:23 Pulse 85 05/24/24 11:23 Resp 16 05/24/24 11:23 BP 105/54 L 05/24/24 11:23 Pulse Ox 99 05/24/24 11:23 O2 Del Method Room Air 05/24/24 11:23 BMI result Body Mass Index 22.0 Const: Other: Awake alert no acute distress Resp: Other: Clear to auscultation bilaterally no rales rhonchi or wheezes Cardio: Other: No S4; positive S1-S2; no S3 murmurs rubs or gallops GI: Other: Soft nontender nondistended normoactive bowel sounds Extrem: Other: No edema bilaterally Objective Data Active Medications Acetaminophen (Acetaminophen 325 Mg Tablet) 650 mg PO Q6H PRN PRN Reason: Pain, Mild (Pain Scale 1-3), fever or headache Last Admin: 05/23/24 09:14 Dose: 650 mg Documented By: TARUN Aspirin (Aspirin Enteric Coated 81 Mg Tablet.) 81 mg PO DAILY [facility] Last Admin: 05/24/24 08:41 Dose: 81 mg Documented By: LAUREANO Atorvastatin Calcium (Atorvastatin Calcium 80 Mg Tablet) 80 mg PO DAILY [facility] Last Admin: 05/24/24 08:42 Dose: 80 mg Documented By: LAUREANO Calcium Carbonate (Calcium Carbonate 750 Mg Tab.Chew) 750 mg PO Q4H PRN PRN Reason: Heartburn Ergocalciferol (Ergocalciferol (Vitamin D2) 1,250 Mcg Capsule) 1,250 mcg PO [facility] Fluticasone/Umeclidinium/Vilanterol (Fluticasone/Umeclidinium/Vilanterol 200/62.5/25 Blst.W.Dev) 1 puff INHALE RDAILY [facility] Last Admin: 05/24/24 11:43 Dose: 1 puff Documented By: LAUREANO Heparin Sodium (Porcine) (Heparin Sodium,Porcine 5,000 Unit/Ml Vial) 5,000 unit SUBCUT Q12H [facility] Last Admin: 05/24/24 11:01 Dose: 5,000 unit Documented By: LAUREANO Heparin Sodium (Porcine) (Heparin Sodium,Porcine 5,000 Unit/Ml Vial) 5,000 unit INTRACATH TUTHSA@1645 [facility] Last Admin: 05/23/24 16:40 Dose: Not Given Documented By: RADHA Non-Admin Reason: patinet no longer has cath Piperacillin Sod/Tazobactam (Sod 2.25 gm/ Sodium Chloride) 50 mls @ 100 mls/hr IV Q8H [facility] Last Infusion: 05/24/24 09:58 Dose: Infused Documented By: LAUREANO Vancomycin HCl 500 mg/ Sodium (Chloride) 110 mls @ 110 mls/hr IV ONCE ONE Stop: 05/24/24 09:59 Insulin Glargine (Insulin Glargine,Hum.Rec.Anlog 100 Unit/Ml 10 Ml Vial) 30 unit SUBCUT DAILY [facility] Last Admin: 05/24/24 08:42 Dose: 30 unit Documented By: LAUREANO Isosorbide Mononitrate (Isosorbide Mononitrate 30 Mg Tab.Er.24h) 30 mg PO DAILY [facility]; Protocol Last Admin: 05/24/24 08:41 Dose: 30 mg Documented By: LAUREANO Magnesium Hydroxide (Milk Of Magnesia 30 Ml Oral.Susp) 30 ml PO DAILY PRN PRN Reason: Constipation Melatonin (Melatonin 3 Mg Tablet) 6 mg PO BEDTIME PRN PRN Reason: Insomnia Metoprolol Succinate (Metoprolol Succinate Er 25 Mg Tab.Er.24h) 25 mg PO DAILY [facility]; Protocol Last Admin: 05/24/24 08:41 Dose: 25 mg Documented By: LAUREANO Montelukast Sodium (Montelukast Sodium 10 Mg Tablet) 10 mg PO DAILY [facility] Last Admin: 05/24/24 08:42 Dose: 10 mg Documented By: LAUREANO Multi-Ingred Cream/Lotion/Oil/Oint (Mineral Oil/Petrolatum,White 106 Gm Tube) 1 appl TOPICAL BID [facility]; Protocol Last Admin: 05/24/24 11:02 Dose: 1 appl Documented By: LAUREANO Ondansetron HCl (Ondansetron Hcl 4 Mg/2 Ml Vial) 4 mg IVPUSH Q8H PRN PRN Reason: Nausea and Vomiting Pharmacy Consult (Consult Rx Vancomycin Dosing) 1 each MISCELLANE DAILY PRN PRN Reason: Consult order Sevelamer Carbonate (Sevelamer Carbonate Tablet 800 Mg Tablet) 800 mg PO TIDWM [facility] Last Admin: 05/24/24 11:00 Dose: 800 mg Documented By: LAUREANO Sodium Chloride (0.9 % Sodium Chloride Flush 3 Ml Syringe) 3 ml IVFLUSH QSHIFT [facility] Last Admin: 05/24/24 11:01 Dose: 3 ml Documented By: LAUREANO Labs 05/23/24 07:58 05/24/24 08:30 Labs: Laboratory Results - last 24 hr 05/23/24 05/24/24 05/24/24 16:18 05:57 07:26 Hold Purple Top SEE NOTE Anion Gap Estim Creat Clear Calc 16.5 Estimated GFR 21 POC Glucose 157 H Phosphorus 2.1 L Random Vancomycin 11.7 L 05/24/24 05/24/24 08:30 11:24 Hold Purple Top Anion Gap 14 Estim Creat Clear Calc Estimated GFR POC Glucose 282 H Phosphorus Random Vancomycin Microbiology Microbiology Results: Microbiology 05/22/24 16:27 Urine Culture - Final Urine clean catch - Clean Catch Midstream 05/23/24 14:45 Catheter Tip Culture - Preliminary Catheter Tip - Other Culture in progress. 05/22/24 12:24 Blood Culture - Preliminary Blood - Venous Prelim: GPC Gram Stain only 05/22/24 06:12 Blood Culture - Preliminary Blood - Venous Staphylococcus aureus 05/22/24 06:12 Blood Culture - Preliminary Blood - Venous Staphylococcus aureus Assessment and Plan (1) Sepsis: Status: Acute (2) ESRD (end stage renal disease) on dialysis: Status: Acute (3) Gram-positive bacteremia: Status: Acute Plan 83 year old man presenting with fever and sepsis; received HD 05/23/24. Catheter pulled secondary to Gram-positive bacteremia 1.Severe sepsis with GPC bacteremia (sepsis resolved) -IV vancomycin -ID consult pending -follow up cultures 2.End-stage renal disease on dialysis -T<TH<SA -follow renals/divalents 3.Diabetes mellitus type 2 -acceptable control on current therapies -lispro correctional scale -adjust as indicated 4.Hypertension -acceptable control off therapies -resume when clinically indicated Heparin Full code Quality Stroke Does the patient have a stroke diagnosis?: No VTE Prior VTE?: No VTE Risk Level:: Medical - moderate - high VTE Device Contraindication: N/A - Device Ordered VTE Drug Contraindication: N/A - Med Ordered
--- NOTE | 2024-05-24 15:41 | PM.EVENT ---
Event Note Date of Service: 05/24/24 Event Note: Likely discussion with patient and daughter present. Patient does not grasp the concept of needing dialysis; daughter states even with a catheter he was refusing dialysis stating he did not need it and would be fine without it. Attempted to explain process and consequences of not receiving dialysis however patient failed to understand. At this point in time, I do not think the patient has the capacity to make decisions regarding his health and well-being. Would invoke healthcare proxy Time Spent With Patient Time: Total time managing care of this patient today ____ minutes.
[2024-05-24 15:48] VITALS: BP 116/58; PULSE 76; RESP 17; TEMP 36.7; O2SAT 100
[2024-05-24 19:12] VITALS: BP 115/57; PULSE 86; RESP 15; TEMP 36.6; O2SAT 97
[2024-05-25] VITALS (10 sets, daily range): BP systolic 105–136; BP diastolic 55–69; PULSE 74–96; RESP 18–20; TEMP 36.4–37.1; O2SAT 92–99
[2024-05-25] MEDS: ondansetron HCL 4 MG/2 ML VIAL IVPUSH (00:10)
[2024-05-25 06:33] LABS: MANUAL DIFF FLAG NO
[2024-05-25 07:09] LABS: Alanine Aminotransferase 11 U/L (0-40); Albumin Level 3.1 g/dL (3.5-5.0); Anion Gap 15 (12-20); Aspartate Amino Transferase 17 U/L (5-37); Basophils Percent Auto 0.4 % (0-2); Bilirubin Total 0.7 mg/dL (0.0-1.0); Blood Urea Nitrogen 23 mg/dL (9-16); Carbon Dioxide 22 mmol/L (22-29); Chloride 104 mmol/L (96-108); Eosinophils Absolute Auto 0.1 X10*3/uL (0.0-0.4); Eosinophils Percent Auto 1.5 % (0-4); Glucose Fasting 248 mg/dL (60-99); Hematocrit 30.3 % (42.0-52.0); Hemoglobin 9.8 g/dl (14.0-18.0); Imm Gran Abs Auto 0.08 X10*3/uL (0.00-0.03); Imm Gran Pct Auto 0.9 % (0.0-0.4); Lymphocytes Percent Auto 11.1 % (20-40); Mean Corpuscular HGB Conc 32.3 g/dl (31.0-36.0); Mean Corpuscular Hemoglobin 26.6 pg (27.0-33.0); Mean Corpuscular Volume 82.3 fL (80.0-98.0); Mean Platelet Volume 8.9 fL (9.4-12.4); Monocytes Absolute Auto 0.4 X10*3/uL (0.1-1.2); Monocytes Percent Auto 4.8 % (2-11); Neutrophils Absolute Auto 7.3 x10*3/uL (2.0-8.3); Neutrophils Percent Auto 81.3 % (45-73); Phosphorus 2.5 mg/dL (2.7-4.5); Platelet Count 150 X10*3/uL (160-400); Potassium 4.3 mmol/L (3.3-5.1); Red Blood Count 3.68 X10*6/uL (4.60-5.80); Sodium 137 mmol/L (135-145); Total Protein 5.7 g/dL (6.5-8.0)
[2024-05-25 07:16] LABS: Alkaline Phosphatase 146 U/L (39-117)
[2024-05-25] MEDS: Fluticasone/Umeclidinium/Vilanterol 200/62.5/25 BLST.W.DEV 1 PUFF INHALE (07:46)
[2024-05-25 08:01] LABS: Creatinine Clr Calc Pharmacy 11.6; Estimated Glomerular Filt Rate 14
[2024-05-25] MEDS: Sevelamer Carbonate Tablet 800 MG TABLET PO ×3 (09:28→16:37)
[2024-05-25] MEDS: Metoprolol Succinate ER 25 MG TAB.ER.24H PO (09:28)
[2024-05-25] MEDS: Piperacillin Sodium/Tazobactam 2.25 GM in 0.9 % Sodium Chloride 50 ML IV ×3 (09:28→23:11)
[2024-05-25] MEDS: Insulin Glargine,Hum.rec.anlog 100 UNIT/ML 10 ML VIAL 30 UNIT SUBCUT (09:28)
[2024-05-25] MEDS: Atorvastatin Calcium 80 MG TABLET PO (09:29)
[2024-05-25] MEDS: 0.9 % Sodium Chloride Flush 3 ML SYRINGE IVFLUSH ×3 (09:29→23:11)
[2024-05-25] MEDS: Montelukast Sodium 10 MG TABLET PO (09:29)
[2024-05-25] MEDS: Aspirin Enteric Coated 81 MG TABLET.DR PO (09:29)
[2024-05-25] MEDS: Isosorbide Mononitrate 30 MG TAB.ER.24H PO (09:29)
[2024-05-25] MEDS: Mineral Oil/Petrolatum,White 106 GM Tube 1 APPL TOPICAL ×2 (09:49→21:04)
--- NOTE | 2024-05-25 10:35 | P.PNNP_ITS ---
Subjective Subjective Date of Service: 05/25/24 Principal diagnosis: CHF exacerbation Interval history: 83 y/o male with ESRD on HD ,,Wed, CHFrEF, aortic valve replacement, DMII, HTN, COPD. Had recent hospital admission and was discharged on 05/[facility] to [facility], developed left-sided chest pain and AMS 05/21, these have resolved and now complaining of chills, general malaise. pt has right IJ permacath in place for HD- concern for infection. 05/22 preliminary blood cultures positive for GPC Nephrology consulted for ESRD management. Patient reports he is feeling well today, states he wants to go home denies shortness of breath- lying flat comfortably this a.m. no urine output last 24 hours (pt oliguric at baseline) He denies nausea/vomiting, reports tremors at baseline/no changes, denies pruritis, muscle cramping Last HD 05/23 as per his regular schedule , , Wednesday He subsequently has his permacath pulled due to line infection Physical Exam 2 Vital Signs: Vital Signs: Last Vital Signs Temp 97.7 F 05/25/24 08:00 Pulse 85 05/25/24 09:28 Resp 20 05/25/24 08:00 BP 122/58 L 05/25/24 09:28 Pulse Ox 99 05/25/24 08:00 O2 Del Method Room Air 05/25/24 08:00 BMI result Body Mass Index 22.0 Const: General: no acute distress, awake and lethargic O rientation/consciousness: lethargic Resp: Effort & Inspection: normal respiratory effort Auscultation: clear to auscultation bilaterally Cardio: Rate: regular rate Rhythm: regular rhythm Heart sounds: S1 normal heart sound present, S2 normal heart sound present and Murmur heart sound present Bruits: femoral bruit GI: Palpation (GI): Soft to palpation and nontender : General: Yes bladder normal to inspection and Yes no CVA tenderness Back/Spine/Pelvis: Back: no CVA tenderness Skin: Lesions: no lesions Rashes: no rashes Neuro: Other: no tremors/myoclonus on exam Extrem: General: No edema and No pedal edema Objective Data Labs 05/25/24 06:22 05/25/24 06:22 Labs: Laboratory Results - last 24 hr 05/24/24 05/25/24 11:24 06:22 WBC 9.0 RBC 3.68 L Hgb 9.8 L Hct 30.3 L MCV 82.3 MCH 26.6 L MCHC 32.3 RDW 19.0 H Plt Count 150 L MPV 8.9 L Immature Gran % (Auto) 0.9 H Neut % (Auto) 81.3 H Lymph % (Auto) 11.1 L [place] % (Auto) 4.8 Eos % (Auto) 1.5 Baso % (Auto) 0.4 Lymph # (Auto) 1.0 L [place] # (Auto) 0.4 Eos # (Auto) 0.1 Baso # (Auto) 0.0 Abs Immat Gran (auto) 0.08 H Absolute Neuts (auto) 7.3 Absolute Nucleated RBC 0.000 Nucleated RBC % (auto) 0.0 Sodium 137 Potassium 4.3 Chloride 104 Carbon Dioxide 22 Anion Gap 15 BUN 23 H Creatinine 4.09 H* Estim Creat Clear Calc 11.6 Estimated GFR 14 POC Glucose 282 H Fasting Glucose 248 H Calcium 8.0 L Phosphorus 2.5 L Total Bilirubin 0.7 AST 17 ALT 11 Alkaline Phosphatase 146 H Total Protein 5.7 L Albumin 3.1 L Microbiology Microbiology Results: Microbiology 05/23/24 14:45 Catheter Tip - Other Catheter Tip Culture - Preliminary Staphylococcus aureus 05/22/24 06:12 Blood - Venous Blood Culture - Final Staphylococcus aureus 05/22/24 06:12 Blood - Venous Blood Culture - Final Staphylococcus aureus 05/22/24 16:27 Urine clean catch - Clean Catch Midstream Urine Culture - Final 05/22/24 12:24 Blood - Venous Blood Culture - Preliminary Prelim: GPC Gram Stain only Procedures Date of Service Date of Service: 05/25/24 Assessment & Plan Assessment and plan (1) CKD (chronic kidney disease) stage 4, GFR 15-29 ml/min: Status: Acute (2) Pulmonary edema: Status: Resolved (3) Congestive heart failure: Status: Acute (4) KAILEY (acute kidney injury): Status: Acute Plan Patient with ESRD on HD here for management GPC bacteremia (permacath pulled) permacath pulled 05/23 due to positive blood cultures, this was last HD session He appears euvolemic today Blood pressures acceptable Oliguria at baseline H&H 9.8 and 30 05/25, no indication for procrit at this time calcium 8.0 on 05/23, phosphorous 2.1; other electrolytes also WNL Discussion with patient and HCP Denia (daughter on telephone, patient in bed with her on speaker) today, along with Dr Conner. Patient and daughter have discussed together and he has firmly decided he no longer wishes to receive dialysis, and he and daughter understand this may be fatal, depending on where his renal function is. He states today whether or not his kidney function has improved he no longer wishes to receive dialysis. Discussed that 24 hour urine creatinine will aid in having a better understanding of where his renal function is now before he goes home- ordered 24 hour urine to start tomorrow a.m. Will continue to follow Discussed with Dr Conner Time Spent With Patient Time: Total time managing care of this patient today ____ minutes. Progress Note: Quality Stroke Does the patient have a stroke diagnosis?: No
--- NOTE | 2024-05-25 11:06 | HO.WOUND ---
Wound Consult: Initial 83yr old? male admitted to [facility] on 05/22/24 - See progress notes and H&P for detailed history.? Wound consult placed for Right Chest wound and Buttock wound POA.? Patient agreeable to assessment and photo documentation.? Patient is known to this pattern chart writer from previous admissions see chart for history. Right Chest Etiology: ??Permcath removal site Measurements: 0.2cm x 0.2cm Wound Bed: pink moist wound bed - scant slough noted Drainage / Odor: scant serosang noted on dressing Edges: ? defined Anette wound: ? mild erythema - No Induration, Fluctuance or Warmth noted Pain: denies Goals of Treatment: ? Durafiber for moisture management and antimicrobial properties Sacrum Bilateral Ischium Right Ischium is red and intact but blanchable at this time - preventative foam to be applied. Sacrum and Left Ischium Etiology: ??Deep Tissue Injury Wound Bed: red maroon irregular patterend nonblanchable with scattered partial thickness tissue loss Drainage / Odor: None Edges: attached and irregular Anette wound: ? dry desquamation noted - No Induration, Fluctuance or Warmth noted Pain: denies Goals of Treatment: ? Foam dressings to protect from friction and aid in pressure redistribution Recommendations: 1. Turn and Reposition every 2 hours and as needed for patient comfort.? Use pillows or wedges to support off loading positions. 2. Off Load all bony prominences with use of pillows and heel boots if needed.? Apply Preventative foams where needed. ? 3. Monitor for incontinence and moisture control, use barrier creams when needed for prevention and treatment. 4. Provide adequate and supplemental nutrition.? 5. Order low air loss mattress. 6. When applicable maintain blood glucose levels per Providers order. 7. Right Chest - Cleanse with NS, pat dry. Apply skin prep to area. Cover wound bed with Durafiber AG cover with foam dressing change every 3 days. 8. Sacrum and Bilateral Ischium - Cleanse with Ph wipes or spray. pat dry. Apply skin prep cover with foam dressing, change every 5 days and PRN. Re-consult wound care Nurse for wound deterioration or wound changes.
[2024-05-25 11:51] LABS: Glucose, Whole Blood 302 mg/dL (60-115)
[2024-05-25] MEDS: Heparin Sodium,Porcine 5,000 UNIT/ML VIAL 5000 UNIT SUBCUT ×2 (11:55→23:10)
[2024-05-25] MEDS: Insulin Lispro 100 UNIT/ML 3 ML VIAL SUBCUT ×2 (11:55→16:37)
--- NOTE | 2024-05-25 14:21 | HO.PM.IMPN ---
Subjective Subjective Date of Service: 05/25/24 Interval History: No acute issues overnight. Review of Systems Denies chest pain Denies shortness of breath Denies nausea vomiting diarrhea Denies fever chills Physical Exam Vital Signs: Vital Signs: Last Vital Signs Temp 98.6 F 05/25/24 12:00 Pulse 82 05/25/24 12:00 Resp 20 05/25/24 12:00 BP 112/55 L 05/25/24 12:00 Pulse Ox 97 05/25/24 12:00 O2 Del Method Room Air 05/25/24 12:00 BMI result Body Mass Index 22.0 Const: Other: Awake alert no acute distress Resp: Other: Clear to auscultation bilaterally no rales rhonchi or wheezes Cardio: Other: No S4; positive S1-S2; no S3 murmurs rubs or gallops GI: Other: Soft nontender nondistended normoactive bowel sounds Extrem: Other: No edema bilaterally Objective Data Active Medications Acetaminophen (Acetaminophen 325 Mg Tablet) 650 mg PO Q6H PRN PRN Reason: Pain, Mild (Pain Scale 1-3), fever or headache Last Admin: 05/23/24 09:14 Dose: 650 mg Documented By: TARUN Aspirin (Aspirin Enteric Coated 81 Mg Tablet.) 81 mg PO DAILY [facility] Last Admin: 05/25/24 09:29 Dose: 81 mg Documented By: MALLORY Atorvastatin Calcium (Atorvastatin Calcium 80 Mg Tablet) 80 mg PO DAILY [facility] Last Admin: 05/25/24 09:29 Dose: 80 mg Documented By: MALLORY Calcium Carbonate (Calcium Carbonate 750 Mg Tab.Chew) 750 mg PO Q4H PRN PRN Reason: Heartburn Ergocalciferol (Ergocalciferol (Vitamin D2) 1,250 Mcg Capsule) 1,250 mcg PO [facility] Fluticasone/Umeclidinium/Vilanterol (Fluticasone/Umeclidinium/Vilanterol 200/62.5/25 Blst.W.Dev) 1 puff INHALE RDAILY [facility] Last Admin: 05/25/24 07:46 Dose: 1 puff Documented By: ALENA Glucose (Glucose Gel 15 Gm Gel..Gram.) 15 gm PO Q15M PRN; Protocol PRN Reason: per Hypoglycemia Standing Ord. Heparin Sodium (Porcine) (Heparin Sodium,Porcine 5,000 Unit/Ml Vial) 5,000 unit SUBCUT Q12H [facility] Last Admin: 05/25/24 11:55 Dose: 5,000 unit Documented By: MALLORY Heparin Sodium (Porcine) (Heparin Sodium,Porcine 5,000 Unit/Ml Vial) 5,000 unit INTRACATH [id number] [facility] Last Admin: 05/23/24 16:40 Dose: Not Given Documented By: RADHA Non-Admin Reason: patinet no longer has cath Piperacillin Sod/Tazobactam (Sod 2.25 gm/ Sodium Chloride) 50 mls @ 100 mls/hr IV Q8H [facility] Last Infusion: 05/25/24 10:18 Dose: Infused Documented By: MALLORY Vancomycin HCl 500 mg/ Sodium (Chloride) 110 mls @ 110 mls/hr IV ONCE ONE Stop: 05/24/24 09:59 Dextrose (D10) 250 mls @ 750 mls/hr IV Q15M PRN; Protocol PRN Reason: per Hypoglycemia Standing Ord. Insulin Glargine (Insulin Glargine,Hum.Rec.Anlog 100 Unit/Ml 10 Ml Vial) 30 unit SUBCUT DAILY [facility] Last Admin: 05/25/24 09:28 Dose: 30 unit Documented By: MALLORY Insulin Human Lispro (Insulin Lispro 100 Unit/Ml 3 Ml Vial) 0 unit SUBCUT QIDACHS [facility]; Protocol Last Admin: 05/25/24 11:55 Dose: 8 unit Documented By: MALLORY Isosorbide Mononitrate (Isosorbide Mononitrate 30 Mg Tab.Er.24h) 30 mg PO DAILY [facility]; Protocol Last Admin: 05/25/24 09:29 Dose: 30 mg Documented By: MALLORY Magnesium Hydroxide (Milk Of Magnesia 30 Ml Oral.Susp) 30 ml PO DAILY PRN PRN Reason: Constipation Melatonin (Melatonin 3 Mg Tablet) 6 mg PO BEDTIME PRN PRN Reason: Insomnia Metoprolol Succinate (Metoprolol Succinate Er 25 Mg Tab.Er.24h) 25 mg PO DAILY [facility]; Protocol Last Admin: 05/25/24 09:28 Dose: 25 mg Documented By: MALLORY Montelukast Sodium (Montelukast Sodium 10 Mg Tablet) 10 mg PO DAILY [facility] Last Admin: 05/25/24 09:29 Dose: 10 mg Documented By: MALLORY Multi-Ingred Cream/Lotion/Oil/Oint (Mineral Oil/Petrolatum,White 106 Gm Tube) 1 appl TOPICAL BID [facility]; Protocol Last Admin: 05/25/24 09:49 Dose: 1 appl Documented By: MALLORY Ondansetron HCl (Ondansetron Hcl 4 Mg/2 Ml Vial) 4 mg IVPUSH Q8H PRN PRN Reason: Nausea and Vomiting Last Admin: 05/25/24 00:10 Dose: 4 mg Documented By: FABRICIO Pharmacy Consult (Consult Rx Vancomycin Dosing) 1 each MISCELLANE DAILY PRN PRN Reason: Consult order Sevelamer Carbonate (Sevelamer Carbonate Tablet 800 Mg Tablet) 800 mg PO TIDWM [facility] Last Admin: 05/25/24 11:56 Dose: 800 mg Documented By: MALLORY Sodium Chloride (0.9 % Sodium Chloride Flush 3 Ml Syringe) 3 ml IVFLUSH QSHIFT [facility] Last Admin: 05/25/24 09:29 Dose: 3 ml Documented By: MALLORY Labs 05/25/24 06:22 05/25/24 06:22 Labs: Laboratory Results - last 24 hr 05/25/24 05/25/24 06:22 11:46 MCV 82.3 MCH 26.6 L MCHC 32.3 RDW 19.0 H Plt Count 150 L MPV 8.9 L Immature Gran % (Auto) 0.9 H Neut % (Auto) 81.3 H Lymph % (Auto) 11.1 L [place] % (Auto) 4.8 Eos % (Auto) 1.5 Baso % (Auto) 0.4 Lymph # (Auto) 1.0 L [place] # (Auto) 0.4 Eos # (Auto) 0.1 Baso # (Auto) 0.0 Abs Immat Gran (auto) 0.08 H Absolute Neuts (auto) 7.3 Absolute Nucleated RBC 0.000 Nucleated RBC % (auto) 0.0 Anion Gap 15 Estim Creat Clear Calc 11.6 Estimated GFR 14 POC Glucose 302 H Fasting Glucose 248 H Calcium 8.0 L Phosphorus 2.5 L Total Bilirubin 0.7 AST 17 ALT 11 Alkaline Phosphatase 146 H Total Protein 5.7 L Albumin 3.1 L Microbiology Microbiology Results: Microbiology 05/22/24 12:24 Blood Culture - Final Blood - Venous Staphylococcus aureus 05/23/24 14:45 Catheter Tip Culture - Preliminary Catheter Tip - Other Staphylococcus aureus 05/22/24 06:12 Blood Culture - Final Blood - Venous Staphylococcus aureus 05/22/24 06:12 Blood Culture - Final Blood - Venous Staphylococcus aureus 05/22/24 16:27 Urine Culture - Final Urine clean catch - Clean Catch Midstream Assessment and Plan (1) Gram-positive bacteremia: Status: Acute Plan 83 year old man presenting with fever and sepsis; received HD 05/23/24. Catheter pulled secondary to Gram-positive bacteremia 1.Severe sepsis with GPC sepsis resolved -ID consult pending -Staph Aureus await ID 2.End-stage renal disease -appreciate conversation between renal and patient's family. No hemodialysis. All understand risks -24 hour urine as per renal -follow renals/divalents 3.Diabetes mellitus type 2 -acceptable control on current therapies -lispro correctional scale -adjust as indicated 4.Hypertension -acceptable control off therapies -resume when clinically indicated Heparin Full code Quality Stroke Does the patient have a stroke diagnosis?: No VTE Prior VTE?: No VTE Risk Level:: Medical - moderate - high VTE Device Contraindication: N/A - Device Ordered VTE Drug Contraindication: N/A - Med Ordered
--- NOTE | 2024-05-25 15:37 | P.CDIM_ITS ---
PROVIDER RESPONSE TEXT: To clarify, the appropriate diagnosis supported by the clinical indicators: Acute QUERY TEXT: PHYSICIAN'S DOCUMENTATION REQUEST Date of Query: 05/25/2024 08:23 AM EDT Patient Name: Adolfo Blakely Admit Date: 05/22/2024 Dear Lang Bell DO, A review of the medical record indicates additional documentation may be needed. Please review below and update the documentation accordingly. Clinical Indicators: Progress notes within the Plan: Severe sepsis with GPC bacteremia. Fever, tachycardia, leukocytosis, lactic acidosis Likely secondary to line infection from dialysis permacath. LA 2.8 H Clarify which of the following accurately represents the acuity of the Lactic acidosis: Possible options might include: Acute Chronic Other (explain) Clinically unable to determine (explain) Thank you, Malika Hatfield, CCS, CDIS Use of terms such as suspected, likely, concern for, or probable (associated with a specific diagnosi s that is being evaluated, monitored, or treated as if it exists) are acceptable and can be coded in the inpatient se tting, when documented at the time of discharge. Please use your independent medical judgment in providing your response. THIS QUERY IS PART OF THE PERMANENT MEDICAL RECORD
[2024-05-25 16:17] LABS: Glucose, Whole Blood 193 mg/dL (60-115)
[2024-05-25 16:26] LABS: Vancomycin Random 13.8 mcg/mL (15-20)
[2024-05-25] MEDS: Calcium Carbonate 750 MG TAB.CHEW PO ×2 (16:38→21:15)
[2024-05-25] MEDS: vancomycin HCL 500 MG in 0.9 % Sodium Chloride 100 ML 110 MG IV (17:10)
[2024-05-25 20:44] LABS: Glucose, Whole Blood 135 mg/dL (60-115)
[2024-05-26] VITALS (7 sets, daily range): BP systolic 109–141; BP diastolic 59–70; PULSE 72–89; RESP 15–20; TEMP 36.3–36.7; O2SAT 94–99
[2024-05-26 07:14] LABS: Creatinine Clr Calc Pharmacy 9.9; Estimated Glomerular Filt Rate 12
[2024-05-26 07:36] LABS: Glucose, Whole Blood 112 mg/dL (60-115)
[2024-05-26] MEDS: Fluticasone/Umeclidinium/Vilanterol 200/62.5/25 BLST.W.DEV 1 PUFF INHALE (07:42)
[2024-05-26] MEDS: Atorvastatin Calcium 80 MG TABLET PO (08:10)
[2024-05-26] MEDS: Aspirin Enteric Coated 81 MG TABLET.DR PO (08:10)
[2024-05-26] MEDS: Piperacillin Sodium/Tazobactam 2.25 GM in 0.9 % Sodium Chloride 50 ML IV ×3 (08:11→23:16)
[2024-05-26] MEDS: Sevelamer Carbonate Tablet 800 MG TABLET PO ×3 (08:11→16:24)
[2024-05-26] MEDS: 0.9 % Sodium Chloride Flush 3 ML SYRINGE IVFLUSH ×3 (08:11→20:38)
[2024-05-26] MEDS: Insulin Glargine,Hum.rec.anlog 100 UNIT/ML 10 ML VIAL 30 UNIT SUBCUT (08:11)
[2024-05-26] MEDS: Montelukast Sodium 10 MG TABLET PO (08:11)
[2024-05-26] MEDS: Metoprolol Succinate ER 25 MG TAB.ER.24H PO (08:11)
[2024-05-26] MEDS: Isosorbide Mononitrate 30 MG TAB.ER.24H PO (08:11)
[2024-05-26] MEDS: Mineral Oil/Petrolatum,White 106 GM Tube 1 APPL TOPICAL ×2 (08:20→20:41)
--- NOTE | 2024-05-26 11:04 | PM.PNNEP ---
Subjective Subjective Date of Service: 05/26/24 Principal diagnosis: CHF exacerbation Interval history: 83 y/o male with ESRD on HD ,,Wed, CHFrEF, aortic valve replacement, DMII, HTN, COPD. Had recent hospital admission and was discharged on 05/05 to [facility] he was receiving HD, developed left-sided chest pain and AMS and chills 05/21. 05/22 preliminary blood cultures positive for GPC, permacath removed. Nephrology consulted for ESRD management. Patient reports he is feeling well today denies shortness of breath- lying flat comfortably this a.m. 250mL UOP yesterday (pt oliguric at baseline) He denies nausea/vomiting, reports tremors at baseline/no changes, denies pruritus, muscle cramping Last HD 05/23 as per his regular schedule , , Wednesday He subsequently has his permacath pulled due to line infection. He has stated he wishes to stop dialysis and does not want catheter placed. See 05/25 note- discussion with daughter/HCP as well. Plan for 24 hour urine to assess renal function and then plan to discharge home. Physical Exam Vital Signs: Vital Signs: Last Vital Signs Temp 97.7 F 05/26/24 07:54 Pulse 89 05/26/24 07:54 Resp 15 05/26/24 07:54 BP 129/61 05/26/24 07:54 Pulse Ox 97 05/26/24 07:54 O2 Del Method Room Air 05/26/24 07:54 BMI result Body Mass Index 22.0 Const: General: no acute distress, awake and lethargic Orientation/consciousness: lethargic Resp: Effort & Inspection: normal respiratory effort Auscultation: clear to auscultation bilaterally Cardio: Rate: regular rate Rhythm: regular rhythm Heart sounds: S1 normal heart sound present, S2 normal heart sound present and Murmur heart sound present Bruits: femoral bruit GI: Palpation (GI): Soft to palpation and nontender : General: Yes bladder normal to inspection and Yes no CVA tenderness Back/Spine/Pelvis: Back: no CVA tenderness Skin: Lesions: no lesions Rashes: no rashes Neuro: Other: no tremors/myoclonus on exam Extrem: General: No edema and No pedal edema Objective Data Labs 05/25/24 06:22 05/26/24 06:42 Labs: Laboratory Results - last 24 hr 05/25/24 05/25/24 05/25/24 11:46 15:50 16:09 Creatinine Estim Creat Clear Calc Estimated GFR POC Glucose 302 H 193 H Random Vancomycin 13.8 L 05/25/24 05/26/24 05/26/24 20:41 06:42 07:33 Creatinine 4.81 H* Estim Creat Clear Calc 9.9 Estimated GFR 12 POC Glucose 135 H 112 Random Vancomycin Microbiology Microbiology Results: Microbiology 05/23/24 14:45 Catheter Tip - Other Catheter Tip Culture - Preliminary Staphylococcus aureus Yeast 05/24/24 15:39 Blood - Venous Blood Culture - Preliminary No growth after 24 hours. 05/24/24 15:39 Blood - Venous Blood Culture - Preliminary No growth after 24 hours. 05/22/24 12:24 Blood - Venous Blood Culture - Final Staphylococcus aureus 05/22/24 06:12 Blood - Venous Blood Culture - Final Staphylococcus aureus 05/22/24 06:12 Blood - Venous Blood Culture - Final Staphylococcus aureus 05/22/24 16:27 Urine clean catch - Clean Catch Midstream Urine Culture - Final Procedures Date of Service Date of Service: 05/26/24 Assessment & Plan Assessment and plan (1) CKD (chronic kidney disease) stage 4, GFR 15-29 ml/min: Status: Acute (2) Pulmonary edema: Status: Resolved (3) Congestive heart failure: Status: Acute (4) KAILEY (acute kidney injury): Status: Acute Plan Patient with ESRD on HD here for management GPC bacteremia (permacath pulled) permacath pulled 05/23 due to positive blood cultures, this was last HD session He appears euvolemic today Blood pressures acceptable Oliguria at baseline H&H 9.8 and 30 05/25, administer 10,000units SC procrit calcium 8.0 on 05/23, phosphorous 2.1; other electrolytes also WNL Pt has elected to stop dialysis and not have HD catheter re-inserted, made decision with daughter/HCP (see 05/25 note). plan for 24 hour urine today into tomorrow morning to assess renal function then discharge home per patient wishes. Will continue to follow Discussed with Dr Conner Time Spent With Patient Time: Total time managing care of this patient today ____ minutes. Progress Note: Quality Stroke Does the patient have a stroke diagnosis?: No
[2024-05-26 11:38] LABS: Glucose, Whole Blood 295 mg/dL (60-115)
[2024-05-26] MEDS: Heparin Sodium,Porcine 5,000 UNIT/ML VIAL 5000 UNIT SUBCUT ×2 (11:51→23:16)
[2024-05-26] MEDS: Insulin Lispro 100 UNIT/ML 3 ML VIAL SUBCUT ×2 (11:51→16:24)
[2024-05-26] MEDS: Epoetin Alfa-epbx 10,000 UNIT/ML VIAL 10000 UNIT SUBCUT (13:56)
--- NOTE | 2024-05-26 14:30 | MHC.CM.PN ---
per EMR review, pt. is not ready for DC, he is being treated for infection. pt. and family have decided not to continue HD. CM to follow for DC needs.
[2024-05-26 15:36] LABS: Glucose, Whole Blood 181 mg/dL (60-115)
--- NOTE | 2024-05-26 15:55 | HO.PM.IMPN ---
Subjective Subjective Date of Service: 05/26/24 Interval History: No acute issues overnight. Resting comfortably Review of Systems Denies chest pain Denies shortness of breath Denies nausea vomiting diarrhea Denies fever chills Physical Exam Vital Signs: Vital Signs: Last Vital Signs Temp 97.3 F 05/26/24 15:39 Pulse 83 05/26/24 15:39 Resp 19 05/26/24 15:39 BP 134/67 05/26/24 15:39 Pulse Ox 99 05/26/24 15:39 O2 Del Method Room Air 05/26/24 15:39 BMI result Body Mass Index 22.0 Const: Other: Awake alert no acute distress Resp: Other: Clear to auscultation bilaterally no rales rhonchi or wheezes Cardio: Other: No S4; positive S1-S2; no S3 murmurs rubs or gallops GI: Other: Soft nontender nondistended normoactive bowel sounds Extrem: Other: No edema bilaterally Objective Data Active Medications Acetaminophen (Acetaminophen 325 Mg Tablet) 650 mg PO Q6H PRN PRN Reason: Pain, Mild (Pain Scale 1-3), fever or headache Last Admin: 05/23/24 09:14 Dose: 650 mg Documented By: TARUN Aspirin (Aspirin Enteric Coated 81 Mg Tablet.Dr) 81 mg PO DAILY [facility] Last Admin: 05/26/24 08:10 Dose: 81 mg Documented By: MALLORY Atorvastatin Calcium (Atorvastatin Calcium 80 Mg Tablet) 80 mg PO DAILY [facility] Last Admin: 05/26/24 08:10 Dose: 80 mg Documented By: MALLORY Calcium Carbonate (Calcium Carbonate 750 Mg Tab.Chew) 750 mg PO Q4H PRN PRN Reason: Heartburn Last Admin: 05/25/24 21:15 Dose: 750 mg Documented By: GILMAR Ergocalciferol (Ergocalciferol (Vitamin D2) 1,250 Mcg Capsule) 1,250 mcg PO [facility] Fluticasone/Umeclidinium/Vilanterol (Fluticasone/Umeclidinium/Vilanterol 200/62.5/25 Blst.W.Dev) 1 puff INHALE RDAILY [facility] Last Admin: 05/26/24 07:42 Dose: 1 puff Documented By: RAJ Glucose (Glucose Gel 15 Gm Gel..Gram.) 15 gm PO Q15M PRN; Protocol PRN Reason: per Hypoglycemia Standing Ord. Heparin Sodium (Porcine) (Heparin Sodium,Porcine 5,000 Unit/Ml Vial) 5,000 unit SUBCUT Q12H [facility] Last Admin: 05/26/24 11:51 Dose: 5,000 unit Documented By: MALLORY Piperacillin Sod/Tazobactam (Sod 2.25 gm/ Sodium Chloride) 50 mls @ 100 mls/hr IV Q8H [facility] Last Infusion: 05/26/24 08:47 Dose: Infused Documented By: MALLORY Vancomycin HCl 500 mg/ Sodium (Chloride) 110 mls @ 110 mls/hr IV ONCE ONE Stop: 05/24/24 09:59 Dextrose (D10) 250 mls @ 750 mls/hr IV Q15M PRN; Protocol PRN Reason: per Hypoglycemia Standing Ord. Insulin Glargine (Insulin Glargine,Hum.Rec.Anlog 100 Unit/Ml 10 Ml Vial) 30 unit SUBCUT DAILY [facility] Last Admin: 05/26/24 08:11 Dose: 30 unit Documented By: MALLORY Insulin Human Lispro (Insulin Lispro 100 Unit/Ml 3 Ml Vial) 0 unit SUBCUT QIDACHS [facility]; Protocol Last Admin: 05/26/24 11:51 Dose: 6 unit Documented By: MALLORY Isosorbide Mononitrate (Isosorbide Mononitrate 30 Mg Tab.Er.24h) 30 mg PO DAILY [facility]; Protocol Last Admin: 05/26/24 08:11 Dose: 30 mg Documented By: MALLORY Magnesium Hydroxide (Milk Of Magnesia 30 Ml Oral.Susp) 30 ml PO DAILY PRN PRN Reason: Constipation Melatonin (Melatonin 3 Mg Tablet) 6 mg PO BEDTIME PRN PRN Reason: Insomnia Metoprolol Succinate (Metoprolol Succinate Er 25 Mg Tab.Er.24h) 25 mg PO DAILY [facility]; Protocol Last Admin: 05/26/24 08:11 Dose: 25 mg Documented By: MALLORY Montelukast Sodium (Montelukast Sodium 10 Mg Tablet) 10 mg PO DAILY [facility] Last Admin: 05/26/24 08:11 Dose: 10 mg Documented By: MALLORY Multi-Ingred Cream/Lotion/Oil/Oint (Mineral Oil/Petrolatum,White 106 Gm Tube) 1 appl TOPICAL BID [facility]; Protocol Last Admin: 05/26/24 08:20 Dose: 1 appl Documented By: MALLORY Ondansetron HCl (Ondansetron Hcl 4 Mg/2 Ml Vial) 4 mg IVPUSH Q8H PRN PRN Reason: Nausea and Vomiting Last Admin: 05/25/24 00:10 Dose: 4 mg Documented By: FABRICIO Pharmacy Consult (Consult Rx Vancomycin Dosing) 1 each MISCELLANE DAILY PRN PRN Reason: Consult order Sevelamer Carbonate (Sevelamer Carbonate Tablet 800 Mg Tablet) 800 mg PO TIDWM [facility] Last Admin: 05/26/24 11:53 Dose: 800 mg Documented By: MALLORY Sodium Chloride (0.9 % Sodium Chloride Flush 3 Ml Syringe) 3 ml IVFLUSH QSHIFT [facility] Last Admin: 05/26/24 08:11 Dose: 3 ml Documented By: MALLORY Labs 05/25/24 06:22 05/26/24 06:42 Labs: Laboratory Results - last 24 hr 05/25/24 05/25/24 05/25/24 15:50 16:09 20:41 Estim Creat Clear Calc Estimated GFR POC Glucose 193 H 135 H Random Vancomycin 13.8 L 05/26/24 05/26/24 05/26/24 06:42 07:33 11:34 Estim Creat Clear Calc 9.9 Estimated GFR 12 POC Glucose 112 295 H Random Vancomycin 05/26/24 15:32 Estim Creat Clear Calc Estimated GFR POC Glucose 181 H Random Vancomycin Microbiology Microbiology Results: Microbiology 05/23/24 14:45 Catheter Tip Culture - Preliminary Catheter Tip - Other Staphylococcus aureus Yeast 05/24/24 15:39 Blood Culture - Preliminary Blood - Venous No growth after 24 hours. 05/24/24 15:39 Blood Culture - Preliminary Blood - Venous No growth after 24 hours. 05/22/24 12:24 Blood Culture - Final Blood - Venous Staphylococcus aureus Assessment and Plan (1) Gram-positive bacteremia: Status: Acute (2) Sepsis: Status: Acute (3) ESRD (end stage renal disease) on dialysis: Status: Acute Plan 83 year old man presenting with fever and sepsis; received HD 05/23/24. Catheter pulled secondary to Gram-positive bacteremia 1.Severe sepsis with GPC sepsis resolved -switch to Levaquin(1); repeat cultures negative times 24 hours -Staph Aureus await ID 2.End-stage renal disease -appreciate conversation between renal and patient's family. No hemodialysis. All understand risks -24 hour urine as per renal -follow renals/divalents 3.Diabetes mellitus type 2 -acceptable control on current therapies -lispro correctional scale -adjust as indicated 4.Hypertension -acceptable control off therapies -resume when clinically indicated Heparin Full code Quality Stroke Does the patient have a stroke diagnosis?: No VTE Prior VTE?: No VTE Risk Level:: Medical - moderate - high VTE Device Contraindication: N/A - Device Ordered VTE Drug Contraindication: N/A - Med Ordered
[2024-05-26] MEDS: ondansetron HCL 4 MG/2 ML VIAL IVPUSH (17:01)
[2024-05-26 20:31] LABS: Glucose, Whole Blood 77 mg/dL (60-115)
[2024-05-26] MEDS: Calcium Carbonate 750 MG TAB.CHEW PO (20:37)
[2024-05-27] VITALS (7 sets, daily range): BP systolic 117–146; BP diastolic 61–79; PULSE 67–86; RESP 15–20; TEMP 36.5–36.7; O2SAT 96–100
[2024-05-27 07:25] LABS: Anion Gap 16 (12-20); Blood Urea Nitrogen 29 mg/dL (9-16); Calcium 8.9 mg/dL (8.4-10.2); Carbon Dioxide 24 mmol/L (22-29); Chloride 106 mmol/L (96-108); Creatinine Clr Calc Pharmacy 9.2; Estimated Glomerular Filt Rate 11; Glucose Random 61 mg/dL (60-115); Phosphorus 2.2 mg/dL (2.7-4.5); Potassium 4.5 mmol/L (3.3-5.1); Sodium 141 mmol/L (135-145)
[2024-05-27 07:25] LABS: Glucose, Whole Blood 68 mg/dL (60-115)
[2024-05-27] MEDS: Atorvastatin Calcium 80 MG TABLET PO (10:11)
[2024-05-27] MEDS: Isosorbide Mononitrate 30 MG TAB.ER.24H PO (10:12)
[2024-05-27] MEDS: Aspirin Enteric Coated 81 MG TABLET.DR PO (10:12)
[2024-05-27] MEDS: Montelukast Sodium 10 MG TABLET PO (10:12)
[2024-05-27] MEDS: Heparin Sodium,Porcine 5,000 UNIT/ML VIAL 5000 UNIT SUBCUT ×2 (10:12→23:11)
[2024-05-27] MEDS: Insulin Glargine,Hum.rec.anlog 100 UNIT/ML 10 ML VIAL 30 UNIT SUBCUT (10:12)
[2024-05-27] MEDS: Metoprolol Succinate ER 25 MG TAB.ER.24H PO (10:12)
[2024-05-27] MEDS: Piperacillin Sodium/Tazobactam 2.25 GM in 0.9 % Sodium Chloride 50 ML IV ×2 (10:13→14:34)
[2024-05-27] MEDS: Ergocalciferol (Vitamin D2) 1,250 MCG CAPSULE 1250 MCG PO (10:23)
[2024-05-27] MEDS: 0.9 % Sodium Chloride Flush 3 ML SYRINGE IVFLUSH ×2 (10:23→23:11)
[2024-05-27] MEDS: Sevelamer Carbonate Tablet 800 MG TABLET PO ×3 (10:27→17:27)
[2024-05-27] MEDS: Mineral Oil/Petrolatum,White 106 GM Tube 1 APPL TOPICAL ×2 (10:33→23:11)
[2024-05-27 11:26] LABS: Creatinine, 24Hr Urine 0.3 G/Day (1.0-2.0); Total Volume 24 Hour Urine 175 mL
[2024-05-27 11:26] LABS: Glucose, Whole Blood 128 mg/dL (60-115)
[2024-05-27 11:28] LABS: Creatinine (CrCl) 5.17 mg/dL (0.5-1.4); Creatinine Clearance 4.1 mL/min (85-125)
[2024-05-27] MEDS: Calcium Carbonate 750 MG TAB.CHEW PO ×2 (12:10→17:20)
--- NOTE | 2024-05-27 13:37 | MHC.CM.PN ---
CM SPOKE TO PTS DAUGHTER, HARVINDER [phone] SHE REPORTS SHE DID WANT THE PT TO GO TO [facility], HOWEVER UNDERSTANDS HE IS NO LONGER WILLING TO HAVE HD SHE UNDERSTANDS PT WILL NOT BE ABLE TO GO TO A SNF IF HE IS NOT ACCEPTING HD SHE IS AGREEABLE TO HOSPICE SERVICES IN THE HOME AND STATES [facility] IS HER PREFERENCE SHE WOULD LIKE TO TAKE PT HOME SOON [facility] CAN BE IN PLACE REFERRAL MADE
[2024-05-27 15:58] LABS: Glucose, Whole Blood 96 mg/dL (60-115)
--- NOTE | 2024-05-27 16:29 | HO.PM.IMPN ---
Subjective Subjective Date of Service: 05/27/24 Interval History: Being followed for bacteremia Offers no acute complaints, tolerating diet no nausea, no vomiting, no abdominal pain, declined hemodialysis, 24 hours urine collection ended this morning. Review of Systems All other system reviewed and are negative Physical Exam Vital Signs: Vital Signs: Last Vital Signs Temp 97.9 F 05/27/24 15:42 Pulse 81 05/27/24 15:42 Resp 18 05/27/24 15:42 BP 139/72 05/27/24 15:42 Pulse Ox 96 05/27/24 15:42 O2 Del Method Room Air 05/27/24 15:42 BMI result Body Mass Index 22.0 Const: Other: Gen: NAD HEENT: sclera anicteric, moist mucus membranes Neck: supple, right anterior chest wall small open area at site of prior catheter, no drainage noted, no surrounding erythema Lungs: clear bilaterally Heart: regular, 2/6 systolic murmur at base Abd: soft, non-tender, non-distended, bowel sounds audible Ext: no edema Skin: warm/well-perfused Neuro: awake/oriented x3, no focal findings Psych: appropriate affect Objective Data Active Medications Acetaminophen (Acetaminophen 325 Mg Tablet) 650 mg PO Q6H PRN PRN Reason: Pain, Mild (Pain Scale 1-3), fever or headache Last Admin: 05/23/24 09:14 Dose: 650 mg Documented By: TARUN Aspirin (Aspirin Enteric Coated 81 Mg Tablet.) 81 mg PO DAILY [facility] Last Admin: 05/27/24 10:12 Dose: 81 mg Documented By: KENNEY Atorvastatin Calcium (Atorvastatin Calcium 80 Mg Tablet) 80 mg PO DAILY [facility] Last Admin: 05/27/24 10:11 Dose: 80 mg Documented By: KENNEY Calcium Carbonate (Calcium Carbonate 750 Mg Tab.Chew) 750 mg PO Q4H PRN PRN Reason: Heartburn Last Admin: 05/27/24 12:10 Dose: 750 mg Documented By: KENNEY Ergocalciferol (Ergocalciferol (Vitamin D2) 1,250 Mcg Capsule) 1,250 mcg PO [facility] Last Admin: 05/27/24 10:23 Dose: 1,250 mcg Documented By: KENNEY Fluticasone/Umeclidinium/Vilanterol (Fluticasone/Umeclidinium/Vilanterol 200/62.5/25 Blst.W.Dev) 1 puff INHALE RDAILY [facility] Last Admin: 05/27/24 08:26 Dose: Not Given Documented By: NORM Non-Admin Reason: Not In Room Glucose (Glucose Gel 15 Gm Gel..Gram.) 15 gm PO Q15M PRN; Protocol PRN Reason: per Hypoglycemia Standing Ord. Heparin Sodium (Porcine) (Heparin Sodium,Porcine 5,000 Unit/Ml Vial) 5,000 unit SUBCUT Q12H [facility] Last Admin: 05/27/24 10:12 Dose: 5,000 unit Documented By: KENNEY Piperacillin Sod/Tazobactam (Sod 2.25 gm/ Sodium Chloride) 50 mls @ 100 mls/hr IV Q8H [facility] Last Infusion: 05/27/24 15:43 Dose: Infused Documented By: KENNEY Vancomycin HCl 500 mg/ Sodium (Chloride) 110 mls @ 110 mls/hr IV ONCE ONE Stop: 05/24/24 09:59 Dextrose (D10) 250 mls @ 750 mls/hr IV Q15M PRN; Protocol PRN Reason: per Hypoglycemia Standing Ord. Insulin Glargine (Insulin Glargine,Hum.Rec.Anlog 100 Unit/Ml 10 Ml Vial) 30 unit SUBCUT DAILY [facility] Last Admin: 05/27/24 10:12 Dose: 30 unit Documented By: KENNEY Insulin Human Lispro (Insulin Lispro 100 Unit/Ml 3 Ml Vial) 0 unit SUBCUT QIDACHS [facility]; Protocol Last Admin: 05/27/24 12:12 Dose: Not Given Documented By: KENNEY Non-Admin Reason: No Insulin Coverage Isosorbide Mononitrate (Isosorbide Mononitrate 30 Mg Tab.Er.24h) 30 mg PO DAILY [facility]; Protocol Last Admin: 05/27/24 10:12 Dose: 30 mg Documented By: KENNEY Magnesium Hydroxide (Milk Of Magnesia 30 Ml Oral.Susp) 30 ml PO DAILY PRN PRN Reason: Constipation Melatonin (Melatonin 3 Mg Tablet) 6 mg PO BEDTIME PRN PRN Reason: Insomnia Metoprolol Succinate (Metoprolol Succinate Er 25 Mg Tab.Er.24h) 25 mg PO DAILY [facility]; Protocol Last Admin: 05/27/24 10:12 Dose: 25 mg Documented By: KENNEY Montelukast Sodium (Montelukast Sodium 10 Mg Tablet) 10 mg PO DAILY [facility] Last Admin: 05/27/24 10:12 Dose: 10 mg Documented By: KENNEY Multi-Ingred Cream/Lotion/Oil/Oint (Mineral Oil/Petrolatum,White 106 Gm Tube) 1 appl TOPICAL BID [facility]; Protocol Last Admin: 05/27/24 10:33 Dose: 1 appl Documented By: KENNEY Ondansetron HCl (Ondansetron Hcl 4 Mg/2 Ml Vial) 4 mg IVPUSH Q8H PRN PRN Reason: Nausea and Vomiting Last Admin: 05/26/24 17:01 Dose: 4 mg Documented By: MALLORY Pharmacy Consult (Consult Rx Vancomycin Dosing) 1 each MISCELLANE DAILY PRN PRN Reason: Consult order Sevelamer Carbonate (Sevelamer Carbonate Tablet 800 Mg Tablet) 800 mg PO TIDWM [facility] Last Admin: 05/27/24 14:34 Dose: 800 mg Documented By: KENNEY Sodium Chloride (0.9 % Sodium Chloride Flush 3 Ml Syringe) [facility] Last Admin: 05/27/24 10:23 Dose: 3 ml Documented By: KENNEY Labs 05/25/24 06:22 05/27/24 06:59 Labs: Laboratory Results - last 24 hr 05/26/24 05/27/24 05/27/24 20:26 06:02 06:59 Hold Purple Top SEE NOTE Anion Gap 16 Estim Creat Clear Calc 9.2 Estimated GFR 11 POC Glucose 77 Random Glucose 61 Calcium 8.9 D Phosphorus 2.2 L Ur 24 Hour Volume 175 Ur Creatinine mg/dL 178.20 Ur Creatinine 24 Hour 0.3 L Creat Clearance 24 Hr 4.1 L 05/27/24 05/27/24 05/27/24 07:19 11:10 15:49 Hold Purple Top Anion Gap Estim Creat Clear Calc Estimated GFR POC Glucose 68 128 H 96 Random Glucose Calcium Phosphorus Ur 24 Hour Volume Ur Creatinine mg/dL Ur Creatinine 24 Hour Creat Clearance 24 Hr Microbiology Microbiology Results: Microbiology 05/23/24 14:45 Catheter Tip Culture - Preliminary Catheter Tip - Other Staphylococcus aureus Yeast 05/24/24 15:39 Blood Culture - Preliminary Blood - Venous No growth after 48 hours. 05/24/24 15:39 Blood Culture - Preliminary Blood - Venous No growth after 48 hours. Assessment and Plan (1) Gram-positive bacteremia: Status: Acute (2) Sepsis: Status: Acute Plan 83 year old man presenting with fever and sepsis; received HD 05/23/24. Catheter pulled secondary to Gram-positive bacteremia 1.Severe sepsis with Staph aureus bacteremia Due to hemodialysis catheter infection Blood culture as well as catheter tip culture positive for staph aureus sensitive to Levaquin, doxycycline and Bactrim Sepsis resolved, will DC IV Zosyn, received vancomycin last dose , vanco trough 15, repeat cultures negative times 24 hours -will give 1 dose of Levaquin 500 mg today - await ID input 2.End-stage renal disease -patient and his daughter declined hemodialysis, patient aware of risk of holding dialysis , hospice eval -24 hour urine as per renal collection ended this morning -continue Renvela, and vitamin-D -spoke with Nephrology they recommend outpatient follow-up. -spoke with patient's daughter Denia she agrees with no hemodialysis and requested for hospice consult. 3.Diabetes mellitus type 2 -acceptable control on home dose of Lantus 30 units and insulin sliding scale follow blood sugar closely 4.CAD status post CABG/ bioprosthetic aortic valve / Hypertension on Imdur/metoprolol/Lipitor and aspirin, no chest pain, no palpitations. 5. COPD no acute exacerbation noted continue home inhalers Heparin subQ 5000 b.i.d. Full code In my clinical judgment patient requires continued inpatient hospitalization for bacteremia requiring antibiotic adjustment and safe disposition home Quality Stroke Does the patient have a stroke diagnosis?: No VTE Prior VTE?: No VTE Risk Level:: Medical - moderate - high VTE Device Contraindication: N/A - Device Ordered VTE Drug Contraindication: N/A - Med Ordered
[2024-05-27 16:33] LABS: Vancomycin Random 15.3 mcg/mL (15-20)
[2024-05-27] MEDS: levoFLOXacin 500 MG TABLET PO (17:20)
[2024-05-27] MEDS: ondansetron HCL 4 MG/2 ML VIAL IVPUSH (17:49)
[2024-05-27 20:00] LABS: Glucose, Whole Blood 56 mg/dL (60-115)
[2024-05-27 20:21] LABS: Glucose, Whole Blood 91 mg/dL (60-115)
[2024-05-27 20:36] LABS: Glucose, Whole Blood 90 mg/dL (60-115)
[2024-05-27 21:12] LABS: Glucose, Whole Blood 100 mg/dL (60-115)
[2024-05-28] VITALS (7 sets, daily range): BP systolic 125–139; BP diastolic 62–76; PULSE 76–89; RESP 16–20; TEMP 36.4–37.1; O2SAT 94–99
[2024-05-28 07:43] LABS: Glucose, Whole Blood 119 mg/dL (60-115)
[2024-05-28] MEDS: Sevelamer Carbonate Tablet 800 MG TABLET PO ×3 (09:09→18:16)
[2024-05-28] MEDS: Isosorbide Mononitrate 30 MG TAB.ER.24H PO (09:09)
[2024-05-28] MEDS: Atorvastatin Calcium 80 MG TABLET PO (09:09)
[2024-05-28] MEDS: 0.9 % Sodium Chloride Flush 3 ML SYRINGE IVFLUSH ×3 (09:10→19:53)
[2024-05-28] MEDS: Montelukast Sodium 10 MG TABLET PO (09:10)
[2024-05-28] MEDS: Metoprolol Succinate ER 25 MG TAB.ER.24H PO (09:10)
[2024-05-28] MEDS: Aspirin Enteric Coated 81 MG TABLET.DR PO (09:10)
[2024-05-28] MEDS: Fluticasone/Umeclidinium/Vilanterol 200/62.5/25 BLST.W.DEV 1 PUFF INHALE (09:32)
[2024-05-28] MEDS: Milk of Magnesia 30 ML ORAL.SUSP PO (10:27)
[2024-05-28] MEDS: Insulin Glargine,Hum.rec.anlog 100 UNIT/ML 10 ML VIAL 30 UNIT SUBCUT (10:29)
[2024-05-28] MEDS: Mineral Oil/Petrolatum,White 106 GM Tube 1 APPL TOPICAL ×2 (10:30→19:55)
[2024-05-28 11:19] LABS: Glucose, Whole Blood 167 mg/dL (60-115)
--- NOTE | 2024-05-28 12:02 | P.PNIM_ITS ---
Subjective Subjective Date of Service: 05/28/24 Interval History: Being followed for line infection. Patient offers no acute complaints denies nausea, no vomiting, no abdominal pain, no contusion, no other acute issues overnight has minimal urinary output that seems chronic. Review of Systems All other review of system negative Physical Exam 2 Vital Signs: Vital Signs: Last Vital Signs Temp 97.5 F 05/28/24 11:48 Pulse 79 05/28/24 11:48 Resp 20 05/28/24 11:48 BP 128/76 05/28/24 11:48 Pulse Ox 99 05/28/24 11:48 O2 Del Method Room Air 05/28/24 11:48 BMI result Body Mass Index 22.0 Const: Other: Gen: NAD HEENT: sclera anicteric, moist mucus membranes Neck: supple, right anterior chest wall small open area at site of prior catheter, no drainage noted, no surrounding erythema Lungs: clear bilaterally Heart: regular, 2/6 systolic murmur at base Abd: soft, non-tender, non-distended, bowel sounds audible Ext: no edema Skin: warm/well-perfused Neuro: awake/oriented x3, no focal findings Psych: appropriate affect Objective Data Active Medications Acetaminophen (Acetaminophen 325 Mg Tablet) 650 mg PO Q6H PRN PRN Reason: Pain, Mild (Pain Scale 1-3), fever or headache Last Admin: 05/23/24 09:14 Dose: 650 mg Documented By: TARUN Aspirin (Aspirin Enteric Coated 81 Mg Tablet.) 81 mg PO DAILY [facility] Last Admin: 05/28/24 09:10 Dose: 81 mg Documented By: KENNEY Atorvastatin Calcium (Atorvastatin Calcium 80 Mg Tablet) 80 mg PO DAILY [facility] Last Admin: 05/28/24 09:09 Dose: 80 mg Documented By: KENNEY Calcium Carbonate (Calcium Carbonate 750 Mg Tab.Chew) 750 mg PO Q4H PRN PRN Reason: Heartburn Last Admin: 05/27/24 17:20 Dose: 750 mg Documented By: KENNEY Ergocalciferol (Ergocalciferol (Vitamin D2) 1,250 Mcg Capsule) 1,250 mcg PO [facility] Last Admin: 05/27/24 10:23 Dose: 1,250 mcg Documented By: KENNEY Fluticasone/Umeclidinium/Vilanterol (Fluticasone/Umeclidinium/Vilanterol 200/62.5/25 Blst.W.Dev) 1 puff INHALE RDAILY [facility] Last Admin: 05/28/24 09:32 Dose: 1 puff Documented By: JAM Glucose (Glucose Gel 15 Gm Gel..Gram.) 15 gm PO Q15M PRN; Protocol PRN Reason: per Hypoglycemia Standing Ord. Heparin Sodium (Porcine) (Heparin Sodium,Porcine 5,000 Unit/Ml Vial) 5,000 unit SUBCUT Q12H [facility] Last Admin: 05/27/24 23:11 Dose: 5,000 unit Documented By: CHRISTINA Vancomycin HCl 500 mg/ Sodium (Chloride) 110 mls @ 110 mls/hr IV ONCE ONE Stop: 05/24/24 09:59 Dextrose (D10) 250 mls @ 750 mls/hr IV Q15M PRN; Protocol PRN Reason: per Hypoglycemia Standing Ord. Insulin Glargine (Insulin Glargine,Hum.Rec.Anlog 100 Unit/Ml 10 Ml Vial) 30 unit SUBCUT DAILY [facility] Last Admin: 05/28/24 10:29 Dose: 30 unit Documented By: KENNEY Insulin Human Lispro (Insulin Lispro 100 Unit/Ml 3 Ml Vial) 0 unit SUBCUT QIDACHS [facility]; Protocol Last Admin: 05/28/24 09:12 Dose: Not Given Documented By: KENNEY Non-Admin Reason: No Insulin Coverage Isosorbide Mononitrate (Isosorbide Mononitrate 30 Mg Tab.Er.24h) 30 mg PO DAILY [facility]; Protocol Last Admin: 05/28/24 09:09 Dose: 30 mg Documented By: KENNEY Magnesium Hydroxide (Milk Of Magnesia 30 Ml Oral.Susp) 30 ml PO DAILY PRN PRN Reason: Constipation Last Admin: 05/28/24 10:27 Dose: 30 ml Documented By: KENNEY Melatonin (Melatonin 3 Mg Tablet) 6 mg PO BEDTIME PRN PRN Reason: Insomnia Metoprolol Succinate (Metoprolol Succinate Er 25 Mg Tab.Er.24h) 25 mg PO DAILY [facility]; Protocol Last Admin: 05/28/24 09:10 Dose: 25 mg Documented By: KENNEY Montelukast Sodium (Montelukast Sodium 10 Mg Tablet) 10 mg PO DAILY [facility] Last Admin: 05/28/24 09:10 Dose: 10 mg Documented By: KENNEY Multi-Ingred Cream/Lotion/Oil/Oint (Mineral Oil/Petrolatum,White 106 Gm Tube) 1 appl TOPICAL BID [facility]; Protocol Last Admin: 05/28/24 10:30 Dose: 1 appl Documented By: KENNEY Ondansetron HCl (Ondansetron Hcl 4 Mg/2 Ml Vial) 4 mg IVPUSH Q8H PRN PRN Reason: Nausea and Vomiting Last Admin: 05/27/24 17:49 Dose: 4 mg Documented By: KENNEY Pharmacy Consult (Consult Rx Vancomycin Dosing) 1 each MISCELLANE DAILY PRN PRN Reason: Consult order Sevelamer Carbonate (Sevelamer Carbonate Tablet 800 Mg Tablet) 800 mg PO TIDWM [facility] Last Admin: 05/28/24 09:09 Dose: 800 mg Documented By: KENNEY Sodium Chloride (0.9 % Sodium Chloride Flush 3 Ml Syringe) 3 ml IVFLUSH QSHIFT [facility] Last Admin: 05/28/24 09:10 Dose: 3 ml Documented By: KENNEY Labs 05/25/24 06:22 05/27/24 06:59 Labs: Laboratory Results - last 24 hr 05/27/24 05/27/24 05/27/24 15:49 16:07 19:51 POC Glucose 96 56 L* Random Vancomycin 15.3 05/27/24 05/27/24 05/27/24 20:16 20:32 21:08 POC Glucose 91 90 100 Random Vancomycin 05/28/24 05/28/24 07:32 11:15 POC Glucose 119 H 167 H Random Vancomycin Microbiology Microbiology Results: Microbiology 05/23/24 14:45 Catheter Tip Culture - Final Catheter Tip - Other Staphylococcus aureus Giselle albicans Assessment and Plan (1) Gram-positive bacteremia: Status: Acute (2) Sepsis: Status: Acute Plan 83 year old man presenting with fever and sepsis; received HD 05/23/24. Catheter pulled secondary to Gram-positive bacteremia 1.Severe sepsis with Staph aureus bacteremia Due to hemodialysis catheter infection Blood culture as well as catheter tip culture positive for staph aureus sensitive to Levaquin, doxycycline and Bactrim Sepsis resolved, s/p IV Zosyn, received vancomycin last dose , vanco trough 15, repeat cultures negative times 24 hours s/p 1 dose of Levaquin 500 mg on 05/27 await ID input 2.End-stage renal disease -patient and his daughter declined hemodialysis, patient aware of risk of holding dialysis , hospice eval -24 hour urine as per renal collection ended this morning -continue Renvela, and vitamin-D -spoke with Nephrology they recommend outpatient follow-up. -spoke with patient's daughter Denia she agrees with no hemodialysis and requested for hospice consult. 3.Diabetes mellitus type 2 -acceptable control on home dose of Lantus 30 units and insulin sliding scale follow blood sugar closely 4.CAD status post CABG/ bioprosthetic aortic valve / Hypertension on Imdur/metoprolol/Lipitor and aspirin, no chest pain, no palpitations. 5. COPD no acute exacerbation noted continue home inhalers Heparin subQ 5000 b.i.d. Spoke with patient's daughter and it as per patient's request patient code status has been changed to DNR DNI MOLST form signed patient will be evaluated by hospice at a.m. Full code In my clinical judgment patient requires continued inpatient hospitalization for bacteremia requiring antibiotic adjustment and safe disposition home Quality Stroke Does the patient have a stroke diagnosis?: No VTE Prior VTE?: No VTE Risk Level:: Medical - moderate - high VTE Device Contraindication: N/A - Device Ordered VTE Drug Contraindication: N/A - Med Ordered
[2024-05-28] MEDS: Heparin Sodium,Porcine 5,000 UNIT/ML VIAL 5000 UNIT SUBCUT (12:08)
[2024-05-28] MEDS: Furosemide 40 MG TABLET PO (13:27)
[2024-05-28] MEDS: polyethylene glycoL 3350 17 GM POWD.PACK PO (13:27)
[2024-05-28] MEDS: Insulin Lispro 100 UNIT/ML 3 ML VIAL SUBCUT ×2 (13:28→18:16)
[2024-05-28] MEDS: Glucose Gel 15 GM GEL..GRAM. PO (19:53)
[2024-05-28 20:03] LABS: Glucose, Whole Blood 64 mg/dL (60-115)
[2024-05-28 20:03] LABS: Glucose, Whole Blood 43 mg/dL (60-115)
[2024-05-28 20:32] LABS: Glucose, Whole Blood 74 mg/dL (60-115)
[2024-05-29] MEDS: Heparin Sodium,Porcine 5,000 UNIT/ML VIAL 5000 UNIT SUBCUT (00:18)
[2024-05-29 00:23] LABS: Glucose, Whole Blood 81 mg/dL (60-115)
[2024-05-29 03:46] VITALS: BP 116/59; PULSE 87; RESP 18; TEMP 36.6; O2SAT 94
[2024-05-29 07:30] LABS: Glucose, Whole Blood 113 mg/dL (60-115)
[2024-05-29 08:00] VITALS: BP 134/81; PULSE 87; RESP 20; TEMP 36.2; O2SAT 96
[2024-05-29] MEDS: Fluticasone/Umeclidinium/Vilanterol 200/62.5/25 BLST.W.DEV 1 PUFF INHALE (08:43)
[2024-05-29 08:44] VITALS: PULSE 87; RESP 20; O2SAT 95
[2024-05-29 09:01] VITALS: BP 134/81
[2024-05-29] MEDS: Montelukast Sodium 10 MG TABLET PO (09:01)
[2024-05-29] MEDS: Insulin Glargine,Hum.rec.anlog 100 UNIT/ML 10 ML VIAL 30 UNIT SUBCUT (09:01)
[2024-05-29] MEDS: Aspirin Enteric Coated 81 MG TABLET.DR PO (09:01)
[2024-05-29] MEDS: Isosorbide Mononitrate 30 MG TAB.ER.24H PO (09:01)
[2024-05-29] MEDS: Atorvastatin Calcium 80 MG TABLET PO (09:01)
[2024-05-29 09:02] VITALS: BP 134/81; PULSE 87
[2024-05-29] MEDS: Sevelamer Carbonate Tablet 800 MG TABLET PO ×2 (09:02→12:53)
[2024-05-29] MEDS: Metoprolol Succinate ER 25 MG TAB.ER.24H PO (09:02)
[2024-05-29] MEDS: Mineral Oil/Petrolatum,White 106 GM Tube 1 APPL TOPICAL (09:02)
--- NOTE | 2024-05-29 09:50 | P.PNNP_ITS ---
Subjective Subjective Date of Service: 05/29/24 Principal diagnosis: CHF exacerbation Interval history: 83 y/o male with ESRD on HD ,,Wed, CHFrEF, aortic valve replacement, DMII, HTN, COPD. Had recent hospital admission and was [facility] on [facility], developed left-sided chest pain and AMS and chills 05/21. 05/22 preliminary blood cultures positive for GPC, permacath removed. Nephrology consulted for ESRD management. Patient reports he is feeling ok today, better than yesterday as constipation has improved with stool softeners He denies nausea/vomiting, reports tremors at baseline/no changes, denies pruritus, muscle cramping Last HD 05/23 as per his regular schedule , , Wednesday He subsequently has his permacath pulled due to line infection. He has stated he wishes to stop dialysis and does not want catheter placed. See 05/25 note- discussion with daughter/HCP as well. Renal function is poor, patient and family have elected hospice. Physical Exam 2 Vital Signs: Vital Signs: Last Vital Signs Temp 97.2 F 05/29/24 08:00 Pulse 87 05/29/24 09:02 Resp 20 05/29/24 08:44 BP 134/81 05/29/24 09:02 Pulse Ox 96 05/29/24 08:00 O2 Del Method Room Air 05/29/24 08:00 BMI result Body Mass Index 22.0 Const: General: no acute distress, awake and lethargic O rientation/consciousness: lethargic Resp: Effort & Inspection: normal respiratory effort Auscultation: clear to auscultation bilaterally Cardio: Rate: regular rate Rhythm: regular rhythm Heart sounds: S1 normal heart sound present, S2 normal heart sound present and Murmur heart sound present Bruits: femoral bruit GI: Palpation (GI): Soft to palpation and nontender : General: Yes bladder normal to inspection and Yes no CVA tenderness Back/Spine/Pelvis: Back: no CVA tenderness Skin: Lesions: no lesions Rashes: no rashes Neuro: Other: no tremors/myoclonus on exam Extrem: General: No edema and No pedal edema Objective Data Labs 05/25/24 06:22 05/27/24 06:59 Labs: Laboratory Results - last 24 hr 05/28/24 05/28/24 05/28/24 11:15 15:35 19:46 POC Glucose 167 H 64 43 L* 05/28/24 05/29/24 05/29/24 20:25 00:20 07:12 POC Glucose 74 81 113 Microbiology Microbiology Results: Microbiology 05/23/24 14:45 Catheter Tip - Other Catheter Tip Culture - Final Staphylococcus aureus Giselle albicans 05/24/24 15:39 Blood - Venous Blood Culture - Preliminary No growth after 48 hours. 05/24/24 15:39 Blood - Venous Blood Culture - Preliminary No growth after 48 hours. 05/22/24 12:24 Blood - Venous Blood Culture - Final Staphylococcus aureus 05/22/24 06:12 Blood - Venous Blood Culture - Final Staphylococcus aureus 05/22/24 06:12 Blood - Venous Blood Culture - Final Staphylococcus aureus 05/22/24 16:27 Urine clean catch - Clean Catch Midstream Urine Culture - Final Procedures Date of Service Date of Service: 05/29/24 Assessment & Plan Assessment and plan (1) CKD (chronic kidney disease) stage 4, GFR 15-29 ml/min: Status: Acute (2) Pulmonary edema: Status: Resolved (3) Congestive heart failure: Status: Acute (4) KAILEY (acute kidney injury): Status: Acute Plan Patient with ESRD on HD here for management GPC bacteremia (permacath pulled) Pt has elected to stop dialysis and not have HD catheter re-inserted, made decision with daughter/HCP (see 05/25 note). Patient and family have elected hospice care, respect patient and family decision. All HD orders canceled. Patient to go home on hospice. Discussed with Dr Conner Time Spent With Patient Time: Total time managing care of this patient today ____ minutes. Progress Note: Quality Stroke Does the patient have a stroke diagnosis?: No
[2024-05-29 11:44] VITALS: BP 144/87; PULSE 73; RESP 20; TEMP 36.4
--- NOTE | 2024-05-29 12:15 | P.DS_ITS ---
DS: Providers Provider Date of Service: 05/29/24 Date of admission: 05/22/24 11:33 Date of discharge: 05/29/24 Primary care physician: Antony Pappas MD Consults: 05/22/24 11:37 Consult to Nephrology Routine Consulting Provider: [facility] Reason for consultation: ESRD 05/24/24 12:04 Consult to Wound Care Routine Reason for consultation: buttocks / right chest permacath site 05/27/24 09:04 Consult to Infectious Diseases Routine Consulting Provider: [facility] Reason for consultation: gm pos bacteremia DS: Diagnosis Discharge Diagnosis (1) CKD (chronic kidney disease) stage 4, GFR 15-29 ml/min: Status: Acute (2) Pulmonary edema: Status: Resolved (3) Congestive heart failure: Status: Acute (4) KAILEY (acute kidney injury): Status: Acute DS: Summary Hospital Course Hospital Course: History of presenting illness: Date of Service: 05/22/24 Chief Complaint: fever Patient is an 83-year-old male with history of CHFrEF, aortic valve replacement, DM, HTN, COPD, ESRD on HD TuThSat, recently discharged on 05/05, presenting to the ED from [facility] with complaint of left sided chest pain which has since resolved, and daughter also reported that patient appeared to have altered mental status since yesterday morning. Patient's only complaint at this time is feeling chills. Denies shortness of breath or difficulty breathing. Denies abdominal pain, nausea, vomiting or diarrhea. He was noted to have fever, tachycardia, leukocytosis. He was started on IV vancomycin, Zosyn and cefepime. Blood cultures were drawn. Creatinine noted to be 3.41 with a history of end- stage renal disease. When patient arrived to the ER was noted that right chest PermCath had no dressing and was crusted over. The concern is this may be the source of infection. Plan is to admit patient for further management treatment of severe sepsis secondary to possible line infection. Hospital course: 83 year old man with past medical history of end-stage renal disease on hemodialysis Wednesday and Saturdays, history of chronic heart failure with reduced EF, aortic valve replacement, diabetes mellitus, hypertension, COPD , recently discharged on 05 05 to [facility] and was receiving hemodialysis developed left-sided chest pain, acute mental status change and chills, and diagnosed to have Severe sepsis with Staph aureus bacteremia,due to hemodialysis catheter infection, Blood culture as well as catheter tip culture positive for staph aureus sensitive to Levaquin, doxycycline and Bactrim, repeat blood cultures negative 05/24 ,Sepsis resolved, received vancomycin last dose , patient elected to stop hemodialysis, and not to have hemodialysis catheter reinserted,he made this decision with daughter/healthcare proxy, patient and family elected hospice care, Patient was followed closely by Nephrology they respected patient and family decision, all hemodialysis orders are canceled and patient is now returning home with hospice , in regard to continue treatment for MSSA bacteremia he is being discharged home on Levaquin 250 mg Q 48 hours end date June 07, patient declined to be seen by infectious disease physician, and oral antibiotic treatment for bacteremia is suboptimal as per Infectious Disease, but since patient declined further IV draws and IV treatment therefore can not be discharged on intravenous antibiotics. In regard to Diabetes mellitus type 2 his blood sugars were stable he is being discharged on home dose of Lantus 30 units and insulin sliding scale follow blood sugar closely CAD status post CABG/ bioprosthetic aortic valve / Hypertension on Imdur/ metoprolol/Lipitor and aspirin, he had no episodes of chest pain or palpitations remained hemodynamically stable. COPD no acute exacerbation noted continue home inhalers. All home medications and hospice medications to be adjusted by hospice team. Time Attestation Discharge Coordination Time (in mins): 36 Quality: Safe Use of Opioids Does Pt have an Active Cancer Diagnosis on the Problem List?: No Quality: Stroke Does the patient have a stroke diagnosis?: No Physical Exam Vital Signs: Vital Signs: Last Vital Signs Temp 97.5 F 05/29/24 11:44 Pulse 73 05/29/24 11:44 Resp 20 05/29/24 11:44 BP 144/87 H 05/29/24 11:44 Pulse Ox 96 05/29/24 08:00 O2 Del Method Room Air 05/29/24 08:00 BMI result Body Mass Index 22.0 Const: Other: Gen: Awake alert in no acute distress HEENT: sclera anicteric, moist mucus membranes Neck: supple, right anterior chest wall small open area at site of prior catheter, no drainage noted, no surrounding erythema Lungs: clear bilaterally Heart: regular, 2/6 systolic murmur at base Abd: soft, non-tender, non-distended, bowel sounds audible Ext: no edema Skin: warm/well-perfused Neuro: awake/oriented x3, no focal findings Psych: appropriate affect DS: Data Data Completed and Pending Completed studies during hospitalization [Text1]: Procedures Drainage of Bladder with Drainage Device, Via Natural or Artificial Opening (07/31/23) Performance of Urinary Filtration, Intermittent, Less than 6 Hours Per Day (04/23/24) Labs on day of discharge: Laboratory Results - last 24 hr 05/28/24 05/28/24 05/28/24 15:35 19:46 20:25 POC Glucose 64 43 L* 74 05/29/24 05/29/24 00:20 07:12 POC Glucose 81 113 Preliminary micro results at discharge 05/24/24 15:39 Blood Culture - Preliminary Blood - Venous No growth after 48 hours. 05/24/24 15:39 Blood Culture - Preliminary Blood - Venous No growth after 48 hours. Discharge Plan Discharge Anticipated Discharge Date/Time: 05/29/24 12:11 Patient Disposition: Hospice - Home Discharge Diagnosis: MSSA bacteremia End-stage renal disease stopped hemodialysis Referrals: Ayden CEBALLOS [Outside] - 1 Week Antony Pappas MD [Primary Care Provider] - 1 Week Discharge Medications: New levofloxacin 250 mg tablet 250 mg PO .q48 Qty: 5 0RF Continued atorvastatin 80 mg tablet 1 tab PO DAILY aspirin 81 mg Tablet,Delayed Release (Dr/Ec) 81 mg PO DAILY montelukast 10 mg tablet 1 tab PO DAILY albuterol sulfate 90 mcg/actuation HFA aerosol inhaler 2 puff PO Q6H PRN (Reason: wheezing) Trelegy Ellipta 200-62.5-25 mcg blister with device 1 ea INHALATION DAILY isosorbide mononitrate 30 mg Tablet Extended Release 24 Hr 30 mg PO DAILY Qty: 90 0RF Protocol: Hold for SBP< HOLD for SBP < : 90 Vitamin D2 1.25 mg 1.25 mg PO SA metoprolol succinate 25 mg Tablet Extended Release 24 Hr 25 mg PO DAILY Qty: 30 0RF Protocol: Hold for SBP/HR < HOLD for SBP < : 90 HOLD for HR < : 60 sevelamer carbonate 800 mg Tablet 800 mg PO TIDWM Qty: 1 0RF insulin lispro 100 unit/mL Insulin Pen See Protocol SUBCUT USEASDIRECTD Protocol: Insulin Correction Scale Less than or equal to 110 ---- Give (units): 0 111 to 150 Give (units): 0 151 to 200 Give (units): 2 201 to 250 Give (units): 4 251 to 300 Give (units): 6 301 to 350 Give (units): 8 Greater than 350 Give (units): 10 Call MD if Blood Glucose > : 350 insulin glargine [Lantus U-100 Insulin] 100 unit/mL solution 30 unit subcut DAILY Discharge Orders: Discharge Order (Routine); Ordered 05/29/24 Ordered By: Yamil Houston Diet: Advance to usual diet Activity on Discharge: As tolerated Stand Alone Forms: Patient Portal Discharge page Print Language: Amharic Activity Restrictions/Additional Instructions: Topical wound care recommendations: Right Chest - Cleanse with NS, pat dry. Apply skin prep to area. Cover wound bed with Durafiber AG cover with foam dressing change every 3 days. Sacrum and Bilateral Ischium - Off load pressure - Cleanse routine bathing, pat dry. Apply skin prep allow to dry cover with foam dressing, change every 5 days and PRN. Care Plan Goals: Care as per Hospice On Levaquin 250 mg q.48h for MSSA bacteremia from line sepsis end date June 07 Last dose received on Being discharged home on all home medications to be adjusted by hospice Health Concerns: End-stage renal disease patient declined continued hemodialysis Diabetes mellitus Plan of Treatment: Outpatient follow-up with primary care physician Assessment: As above Discharge Date/Time: 05/29/24 13:00
[2024-05-29] MEDS: Calcium Carbonate 750 MG TAB.CHEW PO (12:16)
--- NOTE | 2024-05-29 12:46 | MHC.CM.PN ---
Second IMM 05/29/24, Pt has been medically cleared for DC, he will go home and have [facility], transport is via BLS>
[2024-05-29] MEDS: levoFLOXacin 250 MG TABLET PO (12:53)
== END 2024-05-29 13:00 | disposition hospice, home (50) | DRG 314 ==
LOC: HO.ED 10:53 → HO.EDOVER 11:39 → HO.IMC 17:08
PROVIDERS: Emergency Medicine; Hospitalist; Nurse Practitioner Family; Registered Nurse Emergency; Admitting Provider Nurse Practitioner Acute Care; Emergency Provider Emergency Medicine; PCP Internal Medicine; Visit Provider Hospitalist
DX: T80.211A Bloodstream infection due to central venous catheter, initial encounter (principal); A41.01 Sepsis due to Methicillin susceptible Staphylococcus aureus; R65.20 Severe sepsis without septic shock; N18.6 End stage renal disease; I13.2 Hypertensive heart and chronic kidney disease with heart failure and with stage 5 chronic kidney disease, or end stage renal disease; I50.22 Chronic systolic (congestive) heart failure; E87.21 Acute metabolic acidosis; E11.22 Type 2 diabetes mellitus with diabetic chronic kidney disease; J44.9 Chronic obstructive pulmonary disease, unspecified; K59.00 Constipation, unspecified; E78.5 Hyperlipidemia, unspecified; Z95.2 Presence of prosthetic heart valve; I25.10 Atherosclerotic heart disease of native coronary artery without angina pectoris; Z95.1 Presence of aortocoronary bypass graft; Z20.822 Contact with and (suspected) exposure to COVID-19; Z99.2 Dependence on renal dialysis; Z87.891 Personal history of nicotine dependence; Z79.4 Long term (current) use of insulin; Z79.82 Long term (current) use of aspirin; Z79.899 Other long term (current) drug therapy
CPT/HCPCS: 0241U; 36415; 71045; 80048; 80051; 80053; 80076; 80202; 81001; 81003; 82565; 82575; 82947; 83605; 83690; 83735; 83880; 84100; 84145; 84484; 85025; 85027; 86140; 87040; 87071; 87077; 87086; 87147; 87186; 87205; 90999; 93005; 99285; J0692; J1644; J1885; J2405; J2543; J3370; J3371; P9047; Q5106

== ENCOUNTER → 2024-05-22 11:33 | Outpatient (BNV) | payer MEDICARE, SELFPAY | PROVIDERS: Admitting Provider Nurse Practitioner Acute Care; Emergency Provider Emergency Medicine; PCP Internal Medicine; Visit Provider Physician Assistant Surgical | DX: R78.81 Bacteremia (principal); N18.6 End stage renal disease | CPT/HCPCS: 36589 ==

== ENCOUNTER → 2024-05-22 11:33 | Outpatient (BNV) | payer MEDICARE, SELFPAY | PROVIDERS: Admitting Provider Nurse Practitioner Acute Care; Emergency Provider Emergency Medicine; PCP Internal Medicine; Visit Provider Nurse Practitioner Acute Care | DX: A41.01 Sepsis due to Methicillin susceptible Staphylococcus aureus (principal); N18.6 End stage renal disease; Z91.158 Patient's noncompliance with renal dialysis for other reason | CPT/HCPCS: 99223; 99232; 99233; 99239; 99499 ==

== ENCOUNTER → 2024-05-22 11:33 | Outpatient (BNV) | payer MEDICARE, SELFPAY | PROVIDERS: Admitting Provider Nurse Practitioner Acute Care; Emergency Provider Emergency Medicine; PCP Internal Medicine; Visit Provider Nurse Practitioner Family | DX: N17.9 Acute kidney failure, unspecified (principal); N18.6 End stage renal disease; J81.1 Chronic pulmonary edema; I50.9 Heart failure, unspecified | CPT/HCPCS: 90935; 99222; 99231; 99232 ==